=== PATIENT | female | born 1945 | race Caucasian/White ===

== ENCOUNTER → 2017-08-02 | Outpatient (CLI) | payer OTHER, BC ==
[~2017-08-02] MED LIST: ABL5 PO; ASPI-391 PO; EFF50 PO; LEVO25TA PO; OXYC1TAB3 PO; RQPUNK PO
--- NOTE | 2017-08-05 14:57 | POLYSOMNOGRAPH REPORT ---
CLINICAL DATA: A 71-year-old female with BMI of 21.[address] Bishop and myself for evaluation of a previous history of sleep apnea, morning headaches, snoring, and fatigue. On the evening of 08/02/2017, a home sleep apnea test was performed using a [employer] type 3 monitor. RECORDING RESULTS: Total recording time 10 hours. The patient monitoring time and estimated sleep time was 9.3 hours. RESPIRATORY DATA: There was no evidence of clinically significant sleep apnea seen. The ZAHRAA was 1.2. There were 5 obstructive and 1 central apneic episodes and 5 hypopneic episodes recorded. The longest respiratory event was 29 seconds. OXIMETRY DATA: Mean saturation was 94%. Oxygen kvng was 80%. Time below 89% was 1 minute. HEART RATE DATA: Heart rates ranged from 67 to 79 beats per minute. SNORING DATA: Snoring was recorded intermittently throughout the night. IMPRESSION: No evidence of clinically significant sleep apnea/hypopnea or sustained nocturnal hypoxemia. RECOMMENDATIONS: The patient should continue to practice good sleep hygiene. There does not appear to be any need for BiPAP or CPAP based on this sleep study. MTDD
== END | disposition home or self-care (01) ==
LOC: C.NEUR 12:55
PROVIDERS: ATTEND Internal Medicine Pulmonary Disease
DX: R51 Headache (principal)

== ENCOUNTER 2019-02-16 09:55 | Inpatient (IN) ==
--- OUTSIDE RECORDS SUMMARY | 2019-02-16 09:58 | External Medical Summary | Continuity of Care Document ---
:1945 Author Name Bishop Valentine Address Unavailable Unavailable , Care Team Providers Name Role Phone Uriah Jett PA-C Unavailable [email or web address] Unavailable Unavailable Unavailable Unavailable Assessments Assessed Problems:Iron deficiency anemia, unspecified iron deficiency anemia typeFatigueRestless legs syndrome Problems Snoring (786.09) (R06.83) Morning headache (784.0) (R51) Sleep apnea, unspecified type (780.57) (G47.30) Breast cancer (174.9) (C50.919) Iron deficiency anemia, unspecified iron deficiency an emia type (280.9) (D50.9) Fatigue (780.79) (R53.83) Restless legs syndrome (333.94) (G25.81) Major depressive disorder, recurrent episode, moderate (296. 32) (F33.1) Kidney disease, chronic, stage III (GFR 30-59 ml/min) (585.3 ) (N18.3) Lichen sclerosus of female genitalia (701.0) (N90.4) Hypothyroidism, unspecified type (244.9) (E03.9) Depressive disorder (311) (F32.9) Allergies and Adverse Reactions Reglan TABS (Allergy) sulfa (Allergy) Medications Aricept 5 MG Oral Tablet; TAKE 1 TABLET DAILY DIRECTED. Refills: 0 Prevacid 30 MG Oral Capsule Delayed Rele ase; TAKE 1 CAPSULE EVERY MORNING DAILY. Refills: 0 Levoxyl 50 MCG Oral Tablet; TAKE 1 TABLET DAILY DIRECTED. Refills: 0 Venofer 20 MG/ML Intravenous Solution Refills: 0 Urocit-K 10 10 MEQ (1080 MG) Oral Tablet Extended Release; TAKE 1 TABLET 3 TIMES DAILY. Refills: 0 Flonase 50 MCG/ACT SUSP; USE 2 SPRAYS IN EACH NOSTRIL DAILY Refills: 0 traMADol HCl - 50 MG Oral Tablet; TAKE 1 TABLET 4 TIMES DAILY NEEDED FOR PAIN. Refills: 0 Lomotil 2.5-0.025 MG Oral Tablet; TAKE 1 TABLET TWICE DAILY NEEDED. Refills: 0 Requip 2 MG TABS; TAKE 1 TABLET AT BEDTIME. Refills: 0 Vitamin B-12 2500 MCG Sublingual Tablet Sublingual; TAKE DIRECTED. Refills: 0 Ensure Oral Liquid; USE DIRECTED. 237 ML Bottle Refills: 0 Triamcinolone Acetonide 0.1 % External Ointment; APPLY INCH DIRECTED Refills: 0 Thiamine HCl - 100 MG Oral Tablet; TAKE 1 TABLET DAILY. Refills: 0 Ativan 0.5 MG Oral Tablet; TAKE 1 TABLET 3 TIMES DAILY NE EDED. Refills: 0 Clobetasol Propionate 0.05 % External Cream; APPLY INCH DIRECTED Refills: 0 Excedrin Extra Strength 250-250-65 MG Oral Tablet; TAKE TABL ET PRN Refills: 0 Venlafaxine HCl - 75 MG Oral Tablet; TAKE 1 TABLET TWICE JUDITH LY WITH MEALS. Refills: 0 Procedures History of sinus surgery Status: Complet ed History of hip replacement Status: Compl eted History of gastrointestinal surgery Stat us: Completed Immunizations Immunizations not documented Social History - Smoking Status Never smoker Interventions Discussion/SummaryPatient is a 71 y.o. female w/multiple medical problems referred to Dr. Champion in June 2017 for re-evaluation of sleep apnea. She previously had severe sleep apnea and was on treatment with BiPAP. She started to have symptoms again to include snoring, fatigue, and headaches therefore re- evaluation was recommended. She had a home sleep study on 08/02/2017 and it did not document clinically significant sleep apnea/hypopnea or nocturnal hypoxemia. She does have a history of RLS believes that it is well controlled with Requip. She is not interested in an in-lab sleep study to evaluate RLS/PLMD. Someof her RLS could be associated with her iron deficiency anemia for which she recieves IV iron therapy. She will follow-up our p.r.n. Plan of Treatment Planned Observations Planned Goals not documented Results No Known Results Results not documented Encounters Appointment; Angel Champion M.D. 27-Jun-2017 14:00 Encounter Diagnosis: Problem not documented Appointment; Britney Jett PA-C 09-Aug-2017 10:40 Encounter Diagnosis: Problem not documented
[2019-02-16] MEDS ORDERED: FAMOTIDINE 20MG/5ML IV PUSH IV STA (10:16)
[2019-02-16] MEDS ORDERED: ONDANSETRON INJ 2 MG/ML 2 ML VIAL IV STA (10:16)
[2019-02-16] MEDS ORDERED: METOCLOPRAMIDE HCL INJ 5 MG/ML 2 ML VIAL IV STA (10:18)
[2019-02-16] MEDS ORDERED: SODIUM CHLORIDE 0.9% 1000ML 1,000 ML IV SCH (10:30)
[2019-02-16 10:36] LABS: Hematocrit (blood only) 31.8 % (37-47); Hemoglobin 10.5 g/dL (12.0-16.0); Mean Corpuscular Volume 88.8 fL (80-100); Mean Platelet Volume 8.8 fL (7.4-10.4); Platelet Count 135 K/uL (130-400); RDW Coefficient of Variation 15.4 % (11.5-14.5); RDW Standard Deviation 50.3 fL (36.4-46.3); Red Blood Count 3.58 M/uL (4.2-5.4); White Blood Count 4.07 K/uL (4.8-10.8)
--- NOTE | 2019-02-16 10:38 | XRay Report ---
XR chest 1V portable HISTORY: weakness COMPARISON: None. FINDINGS: A 9 mm nodular density overlying the left heart border is demonstrated to be a rib calcific ation. The lungs are clear. No pleural effusions. No pneumothorax. The heart is normal in size. IMPRESSION: No acute process. Electronically signed by: Bean Pond M.D. 02/16/2019 10:36 AM
--- NOTE | 2019-02-16 10:46 | CT Scan Report ---
CT head/brain wo con CLINICAL HISTORY: headache COMPARISON STUDY: 10/15/2018 TECHNIQUE: Axial CT of the brain is performed from the vertex to the skull base. IV contrast was not administered for this examination. A dose lowering technique was utilized adhering to the principles of ALARA. CT DOSE: 537.48 mGy.cm FINDINGS: No intra or extra-axial mass lesions are visualized. There is no CT evidence of acute cortical infarc tion. There is no evidence of midline shift. There is no acute hemorrhage. No calvarial fractures ar e visualized. There are minimal white matter hypodensities likely on a small vessel basis. There is mild frontal lo be atrophy. There is no evidence of pathologic ventricular dilatation. There are postsurgical changes present within the paranasal sinuses. There is maxillary sinus mucosal thickening. Advanced arthritic changes are present within the right temporal mandibular joint. IMPRESSION: No acute intracranial findings Electronically signed by: Kem Cuenca M.D. 02/16/2019 10:44 AM
[2019-02-16 10:47] LABS: Prothrombin Time 10.4 Seconds (9.0-12.0)
[2019-02-16 10:53] LABS: Alanine Aminotransferase 164 U/L (12-78); Albumin Level 2.7 gm/dl (3.4-5.0); Aspartate Aminotransferase 90 U/L (15-37); BUN Creatinine Ratio 19.5 (10-20); Blood Urea Nitrogen 25 mg/dl (7-18); Calcium 7.7 mg/dl (8.5-10.1); Carbon Dioxide 27 mmol/L (21-32); Chloride 102 mmol/L (98-107); Est GFR (Non-African American) 41.4; Glucose 159 mg/dl (70-99); Magnesium 2.4 mg/dl (1.8-2.4); Potassium 4.3 mmol/L (3.5-5.1); Sodium 134 mmol/L (136-145)
[2019-02-16 11:04] LABS: Albumin Globulin Ratio 0.8 (0.9-2); Alkaline Phosphatase 182 U/L (45-117); Bilirubin,Total 0.3 mg/dl (0.2-1); Globulin 3.2 gm/dl (2.5-4.0); Total Protein 5.9 gm/dl (6.4-8.2); Troponin I < 0.015 ng/ml (0-0.045)
[2019-02-16] MEDS ORDERED: CALCIUM CARBONATE 500 MG CHEWABLE TAB PO STA (11:04)
[2019-02-16 11:06] LABS: Basophils # (auto) 0.01 K/uL (0-0.2); Basophils % (auto) 0.2 %; Immature Granulocytes # (auto) 0.01 K/uL (0.00-0.02); Immature Granulocytes % (auto) 0.2 %; Lymphocytes # (auto) 0.69 K/uL (1.2-3.4); Monocytes # (auto) 0.23 K/uL (0.11-0.59); Monocytes % (auto) 5.7 %; Neutrophils # (auto) 3.13 K/uL (1.4-6.5); Neutrophils % (auto) 76.9 %
[2019-02-16] MEDS ORDERED: DOXYCYCLINE HYCLATE 100 MG in DEXTROSE 5% 100 ML IV STA (11:07)
--- NOTE | 2019-02-16 12:15 | History & Physical Report ---
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 -Generalized weakness, poor appetite, foggy mentation x 1 week -Leukopenic 4.07K. Platelets within normal limits. Abnormal LFTs as follows: Alk phos 182, ALT 164, AST 90 -Peripheral smear with evidence of cytoplasmic inclusion bodies suspicious for rickettsial-like bacteria versus Anaplasma -CMP, acute hepatitis panel in AM -Lyme and anaplasma serology pending -Of note, patient endorses Lyme disease history 8 years ago -PT/OT evaluation, conditioning (2) Depression with anxiety: Stable. Continue venlafaxine, trazodone, ativan PRN (3) CKD (chronic kidney disease), stage III: Kidney function at baseline -Continue to monitor with daily BMP (4) Anemia due to chronic kidney disease: Hgb stable at 10.5 (5) Hypothyroidism: TSH wnl Continue levothyroxine (6) RLS (restless legs syndrome): Continue Mirapex DVT Ppx: SCDs for now. If platelets remain stable, add SQ lovenox tomorrow Code status: FULL PCP: Dario [facility] Plan to [facility] once medically stable. Patient seen in collaboration with Dr. Ba. Please see addendum. History of Present Illness Chief Complaint: Generalized weakness, fatigue Primary Care Provider: Saritha Bishop, DO This is a 73-year-old female with a PMH of anemia, history of breast cancer, mood disorder, history of partial gastrectomy, hypothyroidism and other medical problems listed below who presents with generalized weakness and malaise x 1 week. Patient has had decreased appetite, felt clumsy and foggy with thinking. Already has decreased appetite since partial gastrectomy in 2009 and drinks boost twice a day. Endorses mild frontal headache and nausea. Denies fever, chills, lightheadedness, visual changes, chest pain, palpitations, shortness of breath, abdominal pain, dysuria, diarrhea or constipation. In the ED, patient found to be leukopenic 4.07K. Platelets within normal limit s. Abnormal LFTs as follows: Alk phos 182, ALT 164, AST 90. Most recently had liver function tests February 07 with mildly elevated ALT/AST and normal alk phos. Peripheral smear with evidence of cytoplasmic inclusion bodies suspicious for rickettsial-like bacteria versus Anaplasma. Started on doxycycline in the ED with fluid resuscitation. Will admit for further treatment. Of note, patient endorses Lyme disease history 8 years ago. Allergies Allergy/AdvReac Type Severity Reaction Status Date / Time Sulfa (Sulfonamide Allergy Intermediate HIVES Verified 02/16/19 10:55 Antibiotics) metoclopramide AdvReac Mild depression Verified 02/16/19 10:55 Home Medications Home Medications Medication Instructions Recorded Confirmed Type fluticasone propionate 2 spray INTRANASAL DAILY 10/15/18 02/16/19 History levothyroxine 25 mcg PO .MON,TUE,WED,FRI,SAT 10/15/18 02/16/19 History levothyroxine 50 mcg PO .SUN,THUR 10/15/18 02/16/19 History lorazepam 0.5 mg PO QID PRN 10/15/18 02/16/19 History potassium citrate 10 meq PO HS 10/15/18 02/16/19 History potassium citrate 20 meq PO DAILY 10/15/18 02/16/19 History ropinirole 2 mg PO HS 10/15/18 02/16/19 History tramadol 50 mg PO Q6H PRN 10/15/18 02/16/19 History trazodone 25 - 50 mg PO HS 10/15/18 02/16/19 History venlafaxine 75 mg PO DAILY 10/15/18 02/16/19 History food supplemt, lactose-reduced 1 ea PO BID 02/16/19 02/16/19 History [Ensure] magnesium oxide 400 mg PO BID 02/16/19 02/16/19 History multivitamin 1 tab PO QAM 02/16/19 02/16/19 History Past Med/Surg History Medical History Breast cancer (Chronic) Depression with anxiety (Chronic) CKD (chronic kidney disease), stage III (Chronic) Anemia due to chronic kidney disease (Chronic) RLS (restless legs syndrome) (Chronic) Chronic sinusitis (Chronic) Hypothyroidism (Chronic) Gastrojejunal ulcer with perforation Surgical History History of total right hip replacement (Chronic) History of cataract surgery (Chronic) H/O oophorectomy (Chronic) History of appendectomy (Chronic) H/O sinus surgery (Chronic) History of partial mastectomy of left breast (Chronic) S/P subtotal gastrectomy (Chronic) H/O Billroth II operation (Chronic) Family History Father Atrial fibrillation Social History Preferred Language: Finnish Communication Ability: Effective Beliefs That Will Affect Care: None marital status: / marital status details: within last 8-9 mo Current Living Situation: Alone Feels Safe at Home: Yes Smoking Status: Former smoker Hx Alcohol Use: No Hx Substance Use: No Review of Systems Review of Systems: At least ten systems reviewed and negative except as noted in the HPI. Physical Exam Physical Exam: General Appearance: thin woman, no apparent distress, resting comfortably Head: normocephalic, atraumatic Eyes: normal inspection, PERRL, EOMI ENT: hearing grossly normal, pharynx normal (moist mucous membranes) Neck: supple, no JVD, no adenopathy Respiratory/Chest: lungs clear to auscultation. No wheezes, rales or rhonci. No respiratory distress or accessory muscle use Cardiovascular: regular rate, rhythm, no murmur, normal peripheral pulses Abdomen/GI: normal bowel sounds, soft, non-tender to palpation Extremities/Musculoskelatal: normal inspection, no calf tenderness, normal capillary refill, no pedal edema Neurologic/Psych: alert, normal mood/affect, oriented x 3 Skin: normal color, warm/dry Results & Data Vital Signs (Past 12 Hours) Vital Signs Temp Pulse Pulse Resp BP BP Pulse Ox 02/16/19 12:05 76 18 95/62 L 96 02/16/19 11:12 79 18 113/69 96 02/16/19 09:57 36.8 C 91 H 20 118/74 97 Laboratory Results Short CBC 02/16/19 Range/Units 10:25 WBC 4.07 L (4.8-10.8) K/uL Hgb 10.5 L (12.0-16.0) g/dL Hct 31.8 L (37-47) % Plt Count 135 (130-400) K/uL BMP 02/16/19 10:25 Sodium 134 L Potassium 4.3 Chloride 102 Carbon Dioxide 27 BUN 25 H Creatinine 1.28 H Glucose 159 H Calcium 7.7 L Cardiac Enzymes 02/16/19 Range/Units 10:25 Troponin I < 0.015 (0-0.045) ng/ml Liver Function 02/16/19 Range/Units 10:25 Total Bilirubin 0.3 (0.2-1) mg/dl AST 90 H (15-37) U/L ALT 164 H (12-78) U/L Alkaline Phosphatase 182 H (45-117) U/L Albumin 2.7 L (3.4-5.0) gm/dl Urine 02/16/19 Range/Units 12:04 Urine Color Yellow Urine Appearance Clear (Clear) Urine pH 6.5 (4.5-7.5) Ur Specific [place] 1.019 (1.000-1.030) Urine Protein 1+ H (Negative) Urine Glucose (UA) Negative (Negative) Diagnostic Findings CT head: IMPRESSION: No acute intracranial findings CXR: IMPRESSION: No acute process. ECG Rhythm: normal sinus Supervising Physician Co-Signing Physician Notes I saw this patient with the physician instruction assistant principal, I participated in the history, physical, review of systems, and physical exam. I reviewed the medications with the patient and the physician instruction assistant principal and helped reconcile the medications. I helped take a detailed family and social history as well. I formulated the assessment and plan personally with the physician instruction assistant principal and went over it with the patient. ROS-No Headache, No Visual Changes, No Nausea, No Vomiting, No Fever, No Chills, No Neck Pain or Stiffness, No Chest Pain, No Palpitations, No SOB, No SKINNER, No Cough, No Sputum, No Wheezing, No Abdominal Pain, No Diarrhea, No Hematemesis, No Hemoptysis, No Unexpected Weight Loss, No Flank pain, No Melena, No Hematochezia, No Frequency, No Urgency, No Burning, No Hematuria, No Rashes, No Diaphoresis. Appetite is poor, complains of weakness Physical Exam Gen-AAO x 3, NAD, Afebrile, weak Head-NCAT, EOMI, PERRLA, Anicteric Sclera, No Posterior Pharyngeal Erythema Neck-Supple, No JVD, No Thyromegaly, No Masses, No LAD, No Bruits Lungs-Clear to Auscultation Bilaterally, No Rales, No Rhonchi, No Wheezing, No Crepitus Chest-No S4, +S1, +S2, No S3, No Murmurs, No Rubs, No Gallops, No Ectopy Abdomen-Soft, Bowel Sounds Present, Non Tender, Non Distended, No Hepatomegaly, No Splenomegaly, No Palpable Masses, No Rebound, No Rigidity, No Guarding Musculoskeletal-Full Range of Motion Bilaterally, No CVAT Extremities-No Cyanosis, No Clubbing, No Edema Nuero-Cranial Nerves II-XII grossly intact, Motor WNL, DTRs WNL, Strength WNL, Non Focal Psych-Normal Mood
[2019-02-16 12:18] LABS: Appearance Urine Clear (Clear); Bacteria Urine Automated Negative (Negative); Bilirubin Urine Negative (Negative); Blood Urine Trace (Negative); Color Urine Yellow; Epithelial Cell Urine Auto 20-30 /lpf (0-5); Glucose Urine UA Negative (Negative); Ketones Urine Negative (Negative); Leukocyte Esterase Urine Negative (Negative); Nitrite Urine Negative (Negative); Protein Urine 1+ (Negative); Specific Gravity Urine 1.019 (1.000-1.030); Urobilinogen Urine Negative (Negative); pH Urine 6.5 (4.5-7.5)
[2019-02-16 13:31] LABS: Lyme Ab IgG w/WB Rflx Positive (Negative)
[2019-02-16 13:32] LABS: Lyme Ab IgM w/WB Rflx Equivocal (Negative)
[2019-02-16] MEDS ORDERED: POLYETHYLENE (MIRALAX) 17 GM PACK PO PRN (14:09)
[2019-02-16] MEDS ORDERED: ONDANSETRON INJ 2 MG/ML 2 ML VIAL IV PRN (14:09)
[2019-02-16] MEDS ORDERED: LORazepam 1 MG TAB PO PRN (15:01)
--- NOTE | 2019-02-16 17:27 | Emergency Department Note ---
Entered by Elvira Saucedo acting as a scribe for Marko Lyon MD History of Present Illness General Chief complaint: Dehydration Stated complaint: WEAK,NAUSEA,CONFUSION Time Seen by Provider: 02/16/19 10:03 Source: patient History of Present Illness Provider complaint: Dehydration Onset (ago): week(s) 1 Location: head (headache) Pain Consistency: + constant Maximum Pain Intensity: 8 Quality: + constant Associated symptoms: + headaches, + loss of appetite, + nausea/vomiting (intermittent nausea ) and + other (Positive: dehydration, clumsy, tripping over herself); no cough The patient is a 73 year old white female w/ PMHx of headaches, diabetes, CKD, RLS, hypothyroidism, who presents to the ED w/ CC of constant dehydration beginning a week ago. The patient reports she has intermittent nausea. She notes she was confused this morning. The patient states her urine has been pouring out of her and has a diaper on. She notes she was told by her doctor that she was dehydrated so she has been trying to hydrate herself. The patient reports she has a bad headache. She states she has history of headaches. The patient notes she has stage 3 kidney disease. The patient reports she has been clumsy and tripping over herself. She notes she has history of diabetes. The patient states she has loss of appetite. She notes she has history of ulcers during her and had partial gastrectomy. The patient denies cough or recent falls. Home Medications Home Medications Medication Instructions Recorded Confirmed Type fluticasone propionate 2 spray INTRANASAL DAILY 10/15/18 02/16/19 History levothyroxine 25 mcg PO .MON,TUE,WED,FRI,SAT 10/15/18 02/16/19 History levothyroxine 50 mcg PO .SUN,THUR 10/15/18 02/16/19 History lorazepam 0.5 mg PO QID PRN 10/15/18 02/16/19 History potassium citrate 10 meq PO HS 10/15/18 02/16/19 History potassium citrate 20 meq PO DAILY 10/15/18 02/16/19 History ropinirole 2 mg PO HS 10/15/18 02/16/19 History tramadol 50 mg PO Q6H PRN 10/15/18 02/16/19 History trazodone 25 - 50 mg PO HS 10/15/18 02/16/19 History venlafaxine 75 mg PO DAILY 10/15/18 02/16/19 History food supplemt, lactose-reduced 1 ea PO BID 02/16/19 02/16/19 History [Ensure] magnesium oxide 400 mg PO BID 02/16/19 02/16/19 History multivitamin 1 tab PO QAM 02/16/19 02/16/19 History Allergies Allergy/AdvReac Type Severity Reaction Status Date / Time Sulfa (Sulfonamide Allergy Intermediate HIVES Verified 02/16/19 10:55 Antibiotics) metoclopramide AdvReac Mild depression Verified 02/16/19 10:55 Past Med/Surg History Medical History Breast cancer (Chronic) Depression with anxiety (Chronic) CKD (chronic kidney disease), stage III (Chronic) Anemia due to chronic kidney disease (Chronic) RLS (restless legs syndrome) (Chronic) Chronic sinusitis (Chronic) Hypothyroidism (Chronic) Gastrojejunal ulcer with perforation Surgical History History of total right hip replacement (Chronic) History of cataract surgery (Chronic) H/O oophorectomy (Chronic) History of appendectomy (Chronic) H/O sinus surgery (Chronic) History of partial mastectomy of left breast (Chronic) S/P subtotal gastrectomy (Chronic) H/O Billroth II operation (Chronic) Family History Father Atrial fibrillation Social History Preferred Language: Ghanaian Communication Ability: Effective Beliefs That Will Affect Care: None marital status: / marital status details: within last 8-9 mo Current Living Situation: Alone Feels Safe at Home: Yes Smoking Status: Former smoker Hx Alcohol Use: No Hx Substance Use: No Review of Systems See HPI for pertinent positives & negatives. and A total of 10 systems reviewed and were otherwise negative Physical Exam Vital Signs Vital Signs - 24 hr 02/16/19 09:57 02/16/19 11:12 02/16/19 12:05 Temperature 36.8 C Temperature Source Oral Sepsis Recent Fever Within 48 Hours No Sepsis Action Taken by Nursing No Action Required Pulse Rate 91 H Pulse Rate [Apical] 79 76 Pulse Rhythm Regular Pulse Strength Normal Respiratory Rate 20 18 18 Respiratory Effort / Characteristics Non-Labored Respiratory Depth Normal Respiratory Pattern Regular Blood Pressure 118/74 Blood Pressure [Left Arm] 113/69 95/62 L Blood Pressure Mean 88 Blood Pressure Mean [Left Arm] 83 73 Blood Pressure Position Sitting Pulse Oximetry 97 96 96 Oxygen Delivery Method Room Air Room Air Room Air 02/16/19 13:45 Temperature Temperature Source Sepsis Recent Fever Within 48 Hours Sepsis Action Taken by Nursing Pulse Rate Pulse Rate [Apical] 76 Pulse Rhythm Pulse Strength Respiratory Rate 18 Respiratory Effort / Characteristics Respiratory Depth Respiratory Pattern Blood Pressure Blood Pressure [Left Arm] 124/81 Blood Pressure Mean Blood Pressure Mean [Left Arm] 95 Blood Pressure Position Pulse Oximetry 98 Oxygen Delivery Method Room Air GENERAL: Weak appearing, NAD, non-toxic. EYE EXAM: Normal conjunctiva. PERRL, no anisocoria and EOM's grossly intact w/o pain. OROPHARYNX: Dry mucous membranes. Grossly normal dentition. NECK: Supple, no nuchal rigidity, no adenopathy, non-tender. No signs of meningismus. LUNGS: Clear to auscultation. Normal chest wall mechanics. HEART: NSR, no MRG. ABDOMEN: Abdomen soft, non-tender, normo-active bowel sounds, no masses, no rebound or guarding. BACK: No CVA TTP. SKIN: No rashes and no bruising. UPPER EXTREMITIES: Upper extremities are grossly normal. LOWER EXTREMITIES: No pitting edema. No calf pain. NEURO EXAM: A&O x3, cranial nerves II-XII grossly intact, normal speech, 5/5 strength throughout, no sensory deficits, good finger to nose, no pronator drift, moves all 4 extremities on command w/o issue. Course 1009: The patient was evaluated in room A11B. A complete history and physical exam was performed. 1105: I received a call from the nurse and they are concerned about anaplasmosis 1200: I reviewed the patient's case with Rinku Jose PA-C. The pat ient will be admitted and further managed by Dr. Ba, Internal medicine. 1220: Upon reevaluation, the patient is resting comfortably. I discussed laboratory and radiographic results with her. The patient verbalized agreement of the treatment plan. The patient will be evaluated for further management and care. Administered Medications Discontinued Medications Calcium Carbonate (Tums) 1,500 mg PO NOW STA Stop: 02/16/19 11:05 Last Admin: 02/16/19 11:19 Dose: 1,500 mg Documented by: [id number] Famotidine (Pepcid 20mg Iv Push) 20 mg IV ONE STA Stop: 02/16/19 10:17 Last Admin: 02/16/19 11:05 Dose: 20 mg Documented by: [id number] Sodium Chloride (Nss 1000ml) 1,000 mls @ 999 mls/hr IV .Q1H1M MARTHA Stop: 02/16/19 11:30 Last Infusion: 02/16/19 14:34 Dose: 0 mls/hr Documented by: [id number] Admin: 02/16/19 11:01 Dose: 999 mls/hr Documented by: [id number] Doxycycline Hyclate 100 mg/ (Dextrose) 110 mls @ 50 mls/hr IV NOW STA Stop: 02/16/19 13:18 Last Infusion: 02/16/19 14:13 Dose: 0 mls/hr Documented by: [id number] Admin: 02/16/19 11:25 Dose: 50 mls/hr Documented by: [id number] Metoclopramide HCl (Reglan) 10 mg IV NOW STA Stop: 02/16/19 10:19 Last Admin: 02/16/19 11:05 Dose: Not Given Documented by: [id number] Ondansetron HCl (Zofran) 4 mg IV NOW STA Stop: 02/16/19 10:17 Last Admin: 02/16/19 11:05 Dose: 4 mg Documented by: [id number] Medical Decision Making Differential Diagnosis Differential Diagnosis: Differential includes acute coronary syndrome, myocardial infarction, CVA, TIA, anemia, infection, pneumonia, UTI, pyelonephritis, poor nutrition, dehydration, electrolyte disturbance,hypoglycemia. Medical Records Attestation: I reviewed the patient's medical records. Home Medications Current Medication List: was personally reviewed by me Laboratory Data Attestation: I reviewed the patient's lab results. Result diagrams: 02/16/19 10:25 02/16/19 10:25 Lab Results 02/16/19 02/16/19 02/16/19 Range/Units 10:25 10:25 10:25 WBC 4.07 L (4.8-10.8) K/uL RBC 3.58 L (4.2-5.4) M/uL Hgb 10.5 L (12.0-16.0) g/dL Hct 31.8 L (37-47) % MCV 88.8 (80-100) fL MCH 29.3 (25-34) pg MCHC 33.0 (32-36) g/dL RDW Std Deviation 50.3 H (36.4-46.3) fL RDW Coeff of Tatiana 15.4 H (11.5-14.5) % Plt Count 135 (130-400) K/uL MPV 8.8 (7.4-10.4) fL Immature Gran % (Auto) 0.2 % Neut % (Auto) 76.9 % Lymph % (Auto) 17.0 % [place] % (Auto) 5.7 % Eos % (Auto) 0.0 % Baso % (Auto) 0.2 % Immature Gran # (Auto) 0.01 (0.00-0.02) K/uL Neut # (Auto) 3.13 (1.4-6.5) K/uL Lymph # (Auto) 0.69 L (1.2-3.4) K/uL [place] # (Auto) 0.23 (0.11-0.59) K/uL Eos # (Auto) 0.00 (0-0.5) K/uL Baso # (Auto) 0.01 (0-0.2) K/uL Blood Smear Review PT 10.4 (9.0-12.0) Seconds INR 1.0 (0.9-1.1) Sodium 134 L (136-145) mmol/L Potassium 4.3 (3.5-5.1) mmol/L Chloride 102 (98-107) mmol/L Carbon Dioxide 27 (21-32) mmol/L Anion Gap 5.0 (3-11) BUN 25 H (7-18) mg/dl Creatinine 1.28 H (0.6-1.2) mg/dl Est Cr Clr Drug Dosing Not Reportable Est GFR ( Amer) 48.0 Est GFR (Non-Af Amer) 41.4 BUN/Creatinine Ratio 19.5 (10-20) Glucose 159 H (70-99) mg/dl Calcium 7.7 L (8.5-10.1) mg/dl Magnesium 2.4 (1.8-2.4) mg/dl Total Bilirubin 0.3 (0.2-1) mg/dl AST 90 H (15-37) U/L ALT 164 H (12-78) U/L Alkaline Phosphatase 182 H (45-117) U/L Troponin I < 0.015 (0-0.045) ng/ml Total Protein 5.9 L (6.4-8.2) gm/dl Albumin 2.7 L (3.4-5.0) gm/dl Globulin 3.2 (2.5-4.0) gm/dl Albumin/Globulin Ratio 0.8 L (0.9-2) TSH 0.622 (0.300-4.500) uIu/ml Urine Color Urine Appearance (Clear) Urine pH (4.5-7.5) Ur Specific [place] (1.000-1.030) Urine Protein (Negative) Urine Glucose (UA) (Negative) Urine Ketones (Negative) Urine Blood (Negative) Urine Nitrite (Negative) Urine Bilirubin (Negative) Urine Urobilinogen (Negative) Ur Leukocyte Esterase (Negative) Urine WBC (Auto) (0-5) /hpf Urine RBC (Auto) (0-4) /hpf U Hyaline Cast (Auto) (0-5) /lpf U Epithel Cells (Auto) (0-5) /lpf Urine Bacteria (Auto) (Negative) Lyme Disease IgG Ab (Negative) Lyme Disease IgM Ab (Negative) 02/16/19 02/16/19 Range/Units 10:25 12:04 WBC (4.8-10.8) K/uL RBC (4.2-5.4) M/uL Hgb (12.0-16.0) g/dL Hct (37-47) % MCV (80-100) fL MCH (25-34) pg MCHC (32-36) g/dL RDW Std Deviation (36.4-46.3) fL RDW Coeff of Tatiana (11.5-14.5) % Plt Count (130-400) K/uL MPV (7.4-10.4) fL Immature Gran % (Auto) % Neut % (Auto) % Lymph % (Auto) % [place] % (Auto) % Eos % (Auto) % Baso % (Auto) % Immature Gran # (Auto) (0.00-0.02) K/uL Neut # (Auto) (1.4-6.5) K/uL Lymph # (Auto) (1.2-3.4) K/uL [place] # (Auto) (0.11-0.59) K/uL Eos # (Auto) (0-0.5) K/uL Baso # (Auto) (0-0.2) K/uL Blood Smear Review PT (9.0-12.0) Seconds INR (0.9-1.1) Sodium (136-145) mmol/L Potassium (3.5-5.1) mmol/L Chloride (98-107) mmol/L Carbon Dioxide (21-32) mmol/L Anion Gap (3-11) BUN (7-18) mg/dl Creatinine (0.6-1.2) mg/dl Est Cr Clr Drug Dosing Est GFR ( Amer) Est GFR (Non-Af Amer) BUN/Creatinine Ratio (10-20) Glucose (70-99) mg/dl Calcium (8.5-10.1) mg/dl Magnesium (1.8-2.4) mg/dl Total Bilirubin (0.2-1) mg/dl AST (15-37) U/L ALT (12-78) U/L Alkaline Phosphatase (45-117) U/L Troponin I (0-0.045) ng/ml Total Protein (6.4-8.2) gm/dl Albumin (3.4-5.0) gm/dl Globulin (2.5-4.0) gm/dl Albumin/Globulin Ratio (0.9-2) TSH (0.300-4.500) uIu/ml Urine Color Yellow Urine Appearance Clear (Clear) Urine pH 6.5 (4.5-7.5) Ur Specific [place] 1.019 (1.000-1.030) Urine Protein 1+ H (Negative) Urine Glucose (UA) Negative (Negative) Urine Ketones Negative (Negative) Urine Blood Trace H (Negative) Urine Nitrite Negative (Negative) Urine Bilirubin Negative (Negative) Urine Urobilinogen Negative (Negative) Ur Leukocyte Esterase Negative (Negative) Urine WBC (Auto) 1-5 (0-5) /hpf Urine RBC (Auto) 10-30 H (0-4) /hpf U Hyaline Cast (Auto) 1-5 (0-5) /lpf U Epithel Cells (Auto) 20-30 H (0-5) /lpf Urine Bacteria (Auto) Negative (Negative) Lyme Disease IgG Ab Positive A (Negative) Lyme Disease IgM Ab Equivocal A (Negative) Imaging Data Radiologist's Impression: Radiology results as stated below per my review and the radiologist's interpretation: CT head/brain wo con CLINICAL HISTORY: headache COMPARISON STUDY: 10/15/2018 TECHNIQUE: Axial CT of the brain is performed from the vertex to the skull base. IV contrast was not administered for this examination. A dose lowering technique was utilized adhering to the principles of ALARA. CT DOSE: 537.48 mGy.cm FINDINGS: No intra or extra-axial mass lesions are visualized. There is no CT evidence of acute cortical infarction. There is no evidence of midline shift. There is no acute hemorrhage. No calvarial fractures are visualized. There are minimal white matter hypodensities likely on a small vessel basis. There is mild frontal lobe atrophy. There is no evidence of pathologic ventricular dilatation. There are postsurgical changes present within the paranasal sinuses. There is maxillary sinus mucosal thickening. Advanced arthritic changes are present within the right temporal mandibular joint. IMPRESSION: No acute intracranial findings Electronically signed by: Kem Cuenca M.D. 02/16/2019 10:44 AM XR chest 1V portable HISTORY: weakness COMPARISON: None. FINDINGS: A 9 mm nodular density overlying the left heart border is demonstrated to be a rib calcification. The lungs are clear. No pleural effusions. No pneumothorax. The heart is normal in size. IMPRESSION: No acute process. Electronically signed by: Bean [place] M.D. 02/16/2019 10:36 AM ECG Data Attestation: I personally reviewed and interpreted this ECG as follows: Indication: weakness Rate (beats per minute): 76 Rhythm: normal sinus Findings: + other (Normal intervals and axis ); no acute ischemic change Blood Pressure Blood Pressure Findings: Low blood pressure Blood Pressure Disposition: further management by hospitalist JOSE ANGEL Woodall The patient is a 73 year old white female w/ PMHx of headaches, diabetes, CKD, RLS, hypothyroidism, who presents to the ED w/ CC of constant dehydration beginning a week ago. Patient was seen and evaluated the bedside. The patient did present with concerns for weakness possible confusion headache and nausea. The patient is a prior history of gastrectomy and recently lost her approximately 8 months ago. This may be contributory to her decreased p.o. intake patient states this is been acutely worse of the last week. The patient did have a nonspecific global headache which has improved with tramadol. Patient denies any fevers and no vomiting but is had nausea patient's blood work was concerning for possible inclusion bodies and associated anaplasmosis. Patient CT of the head is negative. Chest x-ray is also negative. EKG does not show any acute ischemic change. Patient has mild leukopenia and anemia. Platelet count is normal. The patient does have elevations in LFTs as well as creatinine. Patient was given additional IV fluids. Calcium corrected is close to normal but she was given Tums for replacement. I did discuss the case with the on-call hospitalist given the patient's weakness and associated Anaplasma. The patient was given doxycycline. Impression & Plan Weakness, Dehydration, Anaplasmosis, Hypocalcemia Discharge Plan Visit Data *Final* Discharge Date/Time: 02/16/19 13:55 Chief Complaint: Dehydration Stated Complaint: WEAK,NAUSEA,CONFUSION ED Provider: Marko Lyon Discharge Problem: Weakness, Dehydration, Anaplasmosis, Hypocalcemia Patient Disposition: Admitted As Inpatient Discharge Instructions Interventions: ED Discharge Assessment Last Done: 02/16/19 13:55 The ryanneibe's documentation has been prepared under my direction and personally reviewed by me in its entirety. I confirm that the note above accurately reflects all work, treatment, procedures, and medical decision making performed by me.
[2019-02-16] MEDS: SODIUM CHLORIDE 0.9% 1000ML 1,000 ML IV SCH (17:48)
[2019-02-16] MEDS: MAGNESIUM OXIDE 400 MG TAB PO SCH (17:49)
[2019-02-16] MEDS: DOXYCYCLINE HYCLATE 100 MG CAP PO SCH (20:18)
[2019-02-16] MEDS: POTASSIUM CITRATE 10 MEQ TAB PO SCH (20:18)
[2019-02-16] MEDS: ROPINIROLE HCL 1 MG TABLET PO SCH (20:19)
[2019-02-16] MEDS: TRAZODONE HCL 50 MG TAB PO SCH (20:19)
[2019-02-16] MEDS ORDERED: NON-FORMULARY MEDICATION (Food Supplemt, Lactose-Reduced [Ensure] 1 EA) PO SCH (21:00)
[2019-02-17] MEDS ORDERED: LEVOTHYROXINE SODIUM 25 MCG TABLET PO SCH (06:30)
[2019-02-17] MEDS: MAGNESIUM OXIDE 400 MG TAB PO SCH ×2 (08:05→17:43)
[2019-02-17] MEDS: MULTIVITAMIN TAB PO SCH (08:06)
[2019-02-17 08:07] LABS: Hematocrit (blood only) 30.2 % (37-47); Hemoglobin 9.9 g/dL (12.0-16.0); Mean Corpuscular Hgb Conc 32.8 g/dL (32-36); Mean Corpuscular Volume 90.7 fL (80-100); Mean Platelet Volume 9.3 fL (7.4-10.4); Platelet Count 126 K/uL (130-400); RDW Coefficient of Variation 15.6 % (11.5-14.5); RDW Standard Deviation 52.2 fL (36.4-46.3); Red Blood Count 3.33 M/uL (4.2-5.4); White Blood Count 2.59 K/uL (4.8-10.8)
[2019-02-17] MEDS: POTASSIUM CITRATE 10 MEQ TAB PO SCH ×2 (08:07→20:28)
[2019-02-17] MEDS: FLUTICASONE PROPIONATE NA SPR 16 GM BTL NAE SCH (08:07)
[2019-02-17 08:39] LABS: Albumin Level 2.3 gm/dl (3.4-5.0); BUN Creatinine Ratio 21.4 (10-20); Calcium 7.9 mg/dl (8.5-10.1); Creatinine Clr Calc Pharmacy 36.8 ml/min; Est GFR (African American) 52.4; Est GFR (Non-African American) 45.3; Potassium 4.7 mmol/L (3.5-5.1)
[2019-02-17 08:45] LABS: Albumin Globulin Ratio 0.8 (0.9-2); Bilirubin,Total 0.2 mg/dl (0.2-1); Globulin 2.8 gm/dl (2.5-4.0); Total Protein 5.1 gm/dl (6.4-8.2)
[2019-02-17] MEDS ORDERED: VENLAFAXINE HCL 75 MG TAB PO SCH (09:00)
[2019-02-17 09:25] LABS: Hepatitis B Surface Antigen Neg (Neg)
[2019-02-17 09:54] LABS: Hepatitis C IgG 13Yrs+Old_Rflx Neg (Neg)
[2019-02-17] MEDS: DOXYCYCLINE HYCLATE 100 MG CAP PO SCH ×2 (09:56→20:28)
[2019-02-17] MEDS: VENLAFAXINE HCL 50 MG TAB PO SCH (09:56)
[2019-02-17] MEDS: TRAMADOL HCL 50 MG TABLET PO PRN ×2 (10:08→20:26)
[2019-02-17] MEDS: SODIUM CHLORIDE 0.9% 1000ML 1,000 ML IV SCH (10:09)
[2019-02-17] MEDS ORDERED: predniSONE 20 MG TAB PO ONE (10:30)
--- NOTE | 2019-02-17 18:10 | Hospitalist Progress Note ---
Date of Service February 17, 2019 Assessment & Plan (1) Anaplasmosis: This is a 73-year-old female with a PMH of anemia, history of breast cancer, mood disorder, history of partial gastrectomy, hypothyroidism and other medical problems listed below who presents with generalized weakness and malaise x 1 week and has suspected anaplasmosis. -urine analysis negative -Peripheral smear 02/16/19: "Laboratory requested review of a peripheral blood smear shows neutrophils with cytoplasmic inclusions on the [employer] system and smear. 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 phagocytophilum DNA pending -patient endorses Lyme disease history 8 years ago. Lyme IgG positive but Lyme IgM is equivocal, Western blot for Lyme is pending -a variety of laboratory abnormalities can occur in infection such as leukopenia, thrombocytopenia, and elevated plasma levels of aminotransferases (transaminases), lactate dehydrogenase, and alkaline phosphatase.Anemia and an elevated plasma creatinine concentration also may be seen. -Patient has lab evidence supporting Anaplasmosis Transaminitis -elevated Liver function enzymes on admission AST 90 / ALT 164 /Alkaline phosphatase 182 -now AST 57/ ALT 117/alk 144 Leukopenia -WBC 4.07 K to 2.59 K Thrombocytopenia -In September, the platelets were above 200,000; now 135 K to 128 K hand cramps may be myalgia versus arthritis -start prednisone because patient does not want to take NSAIDs due to Chronic kidney disease -Patient able to ambulate with physical therapy (2) Depression with anxiety: Continue venlafaxine, trazodone, ativan PRN (3) CKD (chronic kidney disease), stage III: Kidney function at baseline -creatinine downtrended 1.28 to 1.19 (4) Anemia due to chronic kidney disease: Hgb 10.5 to 9.9 (5) Hypothyroidism: -TSH 0.666 -Continue levothyroxine (6) RLS (restless legs syndrome): -Continue Mirapex DVT Ppx: SCDs ; ambulation Code status: FULL Disposition: will continue to monitor in the hospital for now while on doxycycline. will repeat labs tomorrow AM. if patient continues to be symptomatically improved while on doxycycline and no other acute events then perhaps patient may be discharged tomorrow Subjective Generally, patient doing well today. she was able to ambulate. no sudden incontinence. no chest pain. no shortness of breath. no abdomen pain. no vomiting. patient did report of on and off discomfort of the wrists/fingers but denies history of arthritis Physical Exam Constitutional: + thin Eyes: PERRL, conjunctivae normal, anicteric sclerae EOM intact bilaterally ENMT: external ear and nose normal, oropharynx normal Neck: normal visual inspection Respiratory: normal respiratory effort, lungs clear to auscultation Cardiovascular: RRR, no murmur, no edema Gastrointestinal (Abdomen): normal bowel sounds, soft, nontender, no hepato splenomegaly Musculoskeletal: Head/Neck/Chest: normocephalic and head atraumatic reports cramps of hands Neurologic: PERRL, EOMI, accommodation nl, no face palsy, no dysarthria CN's II-XI intact bilaterally Results & Data Vital Signs (Past 12 Hours) Vital Signs Temp Pulse Pulse Resp BP BP Pulse Ox 02/17/19 16:12 77 02/17/19 15:54 36.6 C 68 18 126/69 98 02/17/19 11:07 36.8 C 74 18 114/70 97 02/17/19 07:23 36.6 C 75 18 103/66 98 02/17/19 07:22 67
[2019-02-17] MEDS: ROPINIROLE HCL 1 MG TABLET PO SCH (21:15)
[2019-02-17] MEDS: TRAZODONE HCL 50 MG TAB PO SCH (21:15)
[2019-02-18] MEDS: MAGNESIUM OXIDE 400 MG TAB PO SCH (05:45)
[2019-02-18] MEDS: TRAMADOL HCL 50 MG TABLET PO PRN ×2 (05:49→11:25)
[2019-02-18] MEDS ORDERED: LEVOTHYROXINE SODIUM 50 MCG TABLET PO SCH (06:30)
[2019-02-18] MEDS: MULTIVITAMIN TAB PO SCH (07:36)
[2019-02-18] MEDS: VENLAFAXINE HCL 50 MG TAB PO SCH (07:36)
[2019-02-18] MEDS: POTASSIUM CITRATE 10 MEQ TAB PO SCH (07:37)
[2019-02-18] MEDS: DOXYCYCLINE HYCLATE 100 MG CAP PO SCH (07:38)
[2019-02-18] MEDS: FLUTICASONE PROPIONATE NA SPR 16 GM BTL NAE SCH (07:38)
[2019-02-18 08:39] LABS: Hematocrit (blood only) 32.5 % (37-47); Hemoglobin 10.7 g/dL (12.0-16.0); Mean Corpuscular Hgb Conc 32.9 g/dL (32-36); Mean Platelet Volume 9.8 fL (7.4-10.4); Platelet Count 181 K/uL (130-400); RDW Coefficient of Variation 15.8 % (11.5-14.5); RDW Standard Deviation 51.6 fL (36.4-46.3); Red Blood Count 3.65 M/uL (4.2-5.4); White Blood Count 3.76 K/uL (4.8-10.8)
[2019-02-18] MEDS ORDERED: predniSONE 5 MG TAB PO SCH (09:00)
[2019-02-18 09:16] LABS: Albumin Level 2.8 gm/dl (3.4-5.0); BUN Creatinine Ratio 22.3 (10-20); Calcium 8.5 mg/dl (8.5-10.1); Creatinine Clr Calc Pharmacy 38.3 ml/min; Est GFR (African American) 54.7; Est GFR (Non-African American) 47.2; Potassium 4.2 mmol/L (3.5-5.1)
[2019-02-18 09:19] LABS: Albumin Globulin Ratio 0.8 (0.9-2); Bilirubin,Total 0.2 mg/dl (0.2-1); Globulin 3.4 gm/dl (2.5-4.0); Total Protein 6.2 gm/dl (6.4-8.2)
--- NOTE | 2019-02-18 11:39 | Hospitalist Progress Note ---
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 anaplasmosis infection -urine analysis negative -Peripheral smear 02/16/19: "Laboratory requested review of a peripheral blood smear shows neutrophils with cytoplasmic inclusions on the [employer] system and smear. 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 Lyme IgG positive but Lyme IgM is equivocal, Western blot for Lyme is pending -a variety of laboratory abnormalities can occur in infection such as leukopenia, thrombocytopenia, and elevated plasma levels of aminotransferases (transaminases), lactate dehydrogenase, and alkaline phosphatase.Anemia and an elevated plasma creatinine concentration also may be seen. -Patient has other lab evidence supporting Anaplasmosis. Patient should have repeat CBC and comprehensive metabolic panel repeated by primary care doctor and have primary care doctor follow up Western blot for Lyme -discharge on Doxycycline 100 mg BID for 20 more days fro anaplasmosis infection Transaminitis -elevated Liver function enzymes on admission AST 90 / ALT 164 /Alkaline phosphatase 182 -then trended to AST 57/ ALT 117/alk 144 -now stable AST 54/ALT 120/alk 128 Leukopenia -WBC 4.07 K to 2.59 K to 3.76K Thrombocytopenia -In September, the platelets were above 200,000; now 135 K to 128 K to 181K hand cramps may be myalgia versus arthritis -was given prednisone because patient does not want to take NSAIDs due to Chronic kidney disease -Patient able to ambulate with physical therapy -discharge on prednisone 20 mg x 3 days then stop (2) Depression with anxiety: Continue venlafaxine, trazodone, ativan PRN (3) CKD (chronic kidney disease), stage III: Kidney function at baseline -creatinine downtrended 1.28 to 1.19 to 1.15 -patient encouraged to drink water and stay hydrated after hospital stay (4) Anemia due to chronic kidney disease: Hgb 10.5 to 9.9 to 10.7 (5) Hypothyroidism: -TSH 0.666 -Continue levothyroxine (6) RLS (restless legs syndrome): -Continue Mirapex DVT Ppx: SCDs ; ambulation Code status: FULL Discharge Diagnosis: anaplasmosis infection, myalgia, transaminitis, Leukopenia, 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 Subjective Patient feeling well. denies myalgias today. hands feeling better. denies weakness. has been ambulatory. no chest pain. no shortness of breath. no headache. no dizziness. Physical Exam Constitutional: + thin Eyes: PERRL, conjunctivae normal, anicteric sclerae EOM intact bilaterally ENMT: external ear and nose normal, oropharynx normal Neck: normal visual inspection Respiratory: normal respiratory effort, lungs clear to auscultation Cardiovascular: RRR, no murmur, no edema Gastrointestinal (Abdomen): normal bowel sounds, soft, nontender, no hepatosplenomegaly Musculoskeletal: Head/Neck/Chest: normocephalic and head atraumatic Neurologic: PERRL, EOMI, accommodation nl, no face palsy, no dysarthria CN's II-XI intact bilaterally Results & Data Vital Signs (Past 12 Hours) Vital Signs Temp Pulse Pulse Resp BP Pulse Ox 02/18/19 07:38 36.7 C 62 18 121/58 L 97 02/18/19 03:36 36.5 C 68 18 113/67 98 02/18/19 00:58 63
--- NOTE | 2019-02-18 11:58 | Discharge Summary ---
Date of Service February 18, 2019 Admission HPI Per Admitting Provider This is a 73-year-old female with a PMH of anemia, history of breast cancer, mood disorder, history of partial gastrectomy, hypothyroidism and other medical problems listed below who presents with generalized weakness and malaise x 1 week. Patient has had decreased appetite, felt clumsy and foggy with thinking. Already has decreased appetite since partial gastrectomy in 2009 and drinks boost twice a day. Endorses mild frontal headache and nausea. Denies fever, chills, lightheadedness, visual changes, chest pain, palpitations, shortness of breath, abdominal pain, dysuria, diarrhea or constipation. In the ED, patient found to be leukopenic 4.07K. Platelets within normal limits. Abnormal LFTs as follows: Alk phos 182, ALT 164, AST 90. Most recently had liver function tests February 07 with mildly elevated ALT/AST and normal alk phos. Peripheral smear with evidence of cytoplasmic inclusion bodies suspicious for rickettsial-like bacteria versus Anaplasma. Started on doxycycline in the ED with fluid resuscitation. Will admit for further treatment. Of note, patient endorses Lyme disease history 8 years ago. Admission Exam Per Admitting Provider General Appearance: thin woman, no apparent distress, resting comfortably Head: normocephalic, atraumatic Eyes: normal inspection, PERRL, EOMI ENT: hearing grossly normal, pharynx normal (moist mucous membranes) Neck: supple, no JVD, no adenopathy Respiratory/Chest: lungs clear to auscultation. No wheezes, rales or rhonci. 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 Discharge Exam Constitutional + thin Eyes PERRL, conjunctivae normal, anicteric sclerae EOM intact bilaterally ENMT external ear and nose normal, oropharynx normal Neck normal visual inspection Respiratory normal respiratory effort, lungs clear to auscultation Cardiovascular RRR, no murmur, no edema Gastrointestinal (Abdomen) normal bowel sounds, soft, nontender, no hepatosplenomegaly Musculoskeletal Head/Neck/Chest: normocephalic and head atraumatic Neurologic PERRL, EOMI, accommodation nl, no face palsy, no dysarthria CN's II-XI intact bilaterally Discharge Data Allergies Allergy/AdvReac Type Severity Reaction Status Date / Time Sulfa (Sulfonamide Allergy Intermediate HIVES Verified 02/16/19 10:55 Antibiotics) metoclopramide AdvReac Mild depression Verified 02/16/19 10:55 Consultations 02/16/19 12:02 ED Decision to Admit Stat Ordered Studies 02/16/19 10:16 CT head/brain wo con Stat Hospital Course (1) Anaplasmosis: This is a 73-year-old female with a PMH of anemia, history of breast cancer, mood disorder, history of partial gastrectomy, hypothyroidism and other medical problems listed below who presents with generalized weakness and malaise x 1 week and has suspected anaplasmosis. anaplasmosis infection -urine analysis negative -Peripheral smear 02/16/19: "Laboratory requested review of a peripheral blood smear shows neutrophils with cytoplasmic inclusions on the [employer] system and smear. 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 Lyme IgG positive but Lyme IgM is equivocal, Western blot for Lyme is pending -a variety of laboratory abnormalities can occur in infection such as leukopenia, thrombocytopenia, and elevated plasma levels of aminotransferases (transaminases), lactate dehydrogenase, and alkaline phosphatase.Anemia and an elevated plasma creatinine concentration also may be seen. -Patient has other lab evidence supporting Anaplasmosis. Patient should have repeat CBC and comprehensive metabolic panel repeated by primary care doctor and have primary care doctor follow up Western blot for Lyme -discharge on Doxycycline 100 mg BID for 20 more days fro anaplasmosis infection Transaminitis -elevated Liver function enzymes on admission AST 90 / ALT 164 /Alkaline phosphatase 182 -then trended to AST 57/ ALT 117/alk 144 -now stable AST 54/ALT 120/alk 128 Leukopenia -WBC 4.07 K to 2.59 K to 3.76K Thrombocytopenia -In September, the platelets were above 200,000; now 135 K to 128 K to 181K hand cramps may be myalgia versus arthritis -was given prednisone because patient does not want to take NSAIDs due to Chronic kidney disease -Patient able to ambulate with physical therapy -discharge on prednisone 20 mg x 3 days then stop (2) Depression with anxiety: Continue venlafaxine, trazodone, ativan PRN (3) CKD (chronic kidney disease), stage III: Kidney function at baseline -creatinine downtrended 1.28 to 1.19 to 1.15 -patient encouraged to drink water and stay hydrated after hospital stay (4) Anemia due to chronic kidney disease: Hgb 10.5 to 9.9 to 10.7 (5) Hypothyroidism: -TSH 0.666 -Continue levothyroxine (6) RLS (restless legs syndrome): -Continue Mirapex DVT Ppx: SCDs ; ambulation Code status: FULL Discharge Diagnosis: anaplasmosis infection, myalgia, transaminitis, Leukopenia, 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 Total Time Total Time Spent Total Time Spent (In Minutes): 40 minutes Total Time Includes: Examination of the Patient, Discharge Planning, Medication Reconciliation and Communication With Other Providers Discharge Plan Discharge Items Patient Disposition: Home - Self-Care Reason For Visit: SUSPETED ANAPLASMOSIS Discharge Diagnosis: anaplasmosis infection, myalgia, transaminitis, Leukopenia, 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 Condition: Good Discharge Goals: Improve disease control Activity: Resume your previous activity Non-emergency contact: Primary Care Provider Call non-emergency contact if: you have any medication questions Follow-up/Referrals: Saritha Bishop DO [Primary Care Provider] - Diet: Regular Addtl Provider Instructions: discharge on Doxycycline 100 mg BID for 20 more days for anaplasmosis infection Patient should have repeat CBC and comprehensive metabolic panel repeated by primary care doctor and have primary care doctor follow up Western blot for Lyme discharge on prednisone 20 mg x 3 days then stop for myalgia/cramps of the hands Discharge medications sent electronically to [facility], [place], [place] [id number] appointments 02/26/2019 11:20 AM Provider Saritha Bishop DO Department Family [facility] 03/27/2019 10:00 AM Provider [address] Department Radiology [facility] Prescriptions: New doxycycline hyclate 100 mg Capsule 100 mg PO BID 20 Days Qty: 40 RF: 0 prednisone 20 mg Tablet 20 mg PO DAILY 3 Days Qty: 3 RF: 0 Continued multivitamin Tablet 1 tab PO QAM RF: 0 Ensure Liquid 1 ea PO BID RF: 0 magnesium oxide 400 mg magnesium Tablet 400 mg PO BID RF: 0 venlafaxine 75 mg tablet 75 mg PO DAILY RF: 0 trazodone 50 mg tablet 25 - 50 mg PO HS RF: 0 tramadol 50 mg tablet 50 mg PO Q6H PRN (Reason: Pain) RF: 0 levothyroxine 50 mcg tablet 50 mcg PO .TUE,THUR RF: 0 levothyroxine 50 mcg tablet 25 mcg PO .MON,TUE,WED,FRI,SAT RF: 0 ropinirole 2 mg tablet 2 mg PO HS RF: 0 potassium citrate 10 mEq (1,080 mg) Tablet Extended Release 20 meq PO DAILY RF: 0 potassium citrate 10 mEq (1,080 mg) Tablet Extended Release 10 meq PO HS RF: 0 lorazepam 1 mg tablet 0.5 mg PO QID PRN (Reason: Anxiety) RF: 0 fluticasone propionate 50 mcg/actuation spray,suspension 2 spray intranasal DAILY RF: 0 Stand-Alone Forms: [facility] Discharge Orders: Discharge Order (Routine); Ordered 02/18/19 Ordered By: Dashawn Burt Admission Data Admit Date/Time: 02/16/19 14:01 Attending Provider: Dashawn Burt Admit Provider: Dashawn Ba Primary Care Provider: Saritha Bishop Other Providers: Dashawn Ba Service: Telemetry Medical
[2019-02-19] MEDS ORDERED: predniSONE 20 MG TAB PO SCH (09:00)
[2019-02-22 09:33] LABS: 18KDIGG Band REACTIVE (NONREACTIVE); 23KDIGG Band REACTIVE (NONREACTIVE); 23KDIGM Band REACTIVE (NONREACTIVE); 28KDIGG Band NONREACTIVE (NONREACTIVE); 30KDIGG Band NONREACTIVE (NONREACTIVE); 39KDIGG Band REACTIVE (NONREACTIVE); 39KDIGM Band NONREACTIVE (NONREACTIVE); 41KDIGG Band REACTIVE (NONREACTIVE); 41KDIGM Band NONREACTIVE (NONREACTIVE); 45KDIGG Band REACTIVE (NONREACTIVE); 58KDIGG Band REACTIVE (NONREACTIVE); 66KDIGG Band REACTIVE (NONREACTIVE); 93KDIGG Band NONREACTIVE (NONREACTIVE); Lyme Antibodies, WB IgG POSITIVE (NEGATIVE); Lyme Antibodies, WB IgM NEGATIVE (NEGATIVE)
== END 2019-02-18 14:02 | disposition home or self-care (01) | DRG 869 ==
LOC: ED 09:55 → 2N 13:55

== ENCOUNTER 2020-06-17 18:07 | Inpatient (IN) ==
[2020-06-17] MEDS ORDERED: ONDANSETRON INJ 2 MG/ML 2 ML VIAL IV STA (18:17)
[2020-06-17] MEDS ORDERED: ACETAMINOPHEN 325 MG TAB PO STA (18:17)
--- NOTE | 2020-06-17 18:22 | Emergency Department Note ---
Impression & Plan Pneumonia due to 2019 novel coronavirus, Weakness, Dehydration, COVID-19, Symptomatic anemia ED Provider Note NAME: GIDEON NELSON AGE: 74 SEX: F : 1945 ARRIVES VIA: Ambulance INFORMANT: Patient, ED PROVIDER(S): Marko Lyon MD Chief Complaint: Weakness HPI: Patient does present with increasing weakness. The patient recently tested positive for coronavirus on Tuesday. Patient has been having symptoms since then with progressively worsening weakness decreased appetite. The patient last ate solids on Tuesday which is taking a dose of but is primarily been drinking Gatorade. Patient did have some falls last evening just due to generalized weakness. Patient denies any headache, numbness, tingling, chills, chest pains, or shortness of breath. The patient has had low-grade temperature. Patient denies any cough. Patient denies any recent recent travel states that she wears a mask states she is unsure how she contracted the virus. The patient denies any lower extremity swelling and has had decreased bowel movements but good urine output. Patient states she has been passing gas. Patient does have some overall body pain but describes this more as muscle aches and not related to her recent falls. The patient does not take blood thinning medications did not strike her head and did not pass out during her periods of falling. In route the patient did not have any hypoxia and BSG was slightly greater than 200. ROS: See HPI for pertinent positives and negatives. A total of 10 systems were reviewed and otherwise negative. Past medical history: See below Surgical history: See below Social history: See below Physical Exam: GENERAL: Wearing a mask. Nontoxic, tired in appearance EYE EXAM: Normal conjunctiva. PERRL, no anisocoria and EOM's grossly intact w/o pain. NECK: Supple, no nuchal rigidity, no adenopathy, non-tender. No signs of meningismus. LUNGS: Clear to auscultation. Normal chest wall mechanics. HEART: NSR, no MRG. ABDOMEN: Abdomen soft, non-tender, normo-active bowel sounds, no masses, no rebound or guarding. BACK: No CVA TTP. SKIN: No rashes and no bruising. Poor skin turgor. UPPER EXTREMITIES: Upper extremities are grossly normal. LOWER EXTREMITIES: Grossly normal, no edema. NEURO EXAM: A&O x3, cranial nerves II-XII grossly intact, normal speech, moves all 4 extremities on command w/o issue. Differential diagnoses: Infection, dehydration, metabolic abnormality, hypo/hyperglycemia, electrolyte disturbance, anemia, hypoxia, cardiac sources, intracerebral event, toxicologic, neurologic, as well as other pathologies. Course: Patient was seen and evaluated the bedside. Full history physical exam was performed. EKG: Indication: Weakness Normal sinus rhythm, rate of 82, normal intervals, normal axis, no ST changes. T WI in lead III but not in contiguous leads. Imaging Studies: Radiology results as stated below per my review in the radiologist's interpretation: XR chest 1V portable HISTORY: Fever. Cough. weakness COMPARISON: Chest 02/16/2019. FINDINGS: There is a new right perihilar airspace opacity. No pneumothorax. No pleural effusions. The heart is normal in size. Mildly tortuous thoracic aorta, unchanged. IMPRESSION: There is new right perihilar airspace opacity. This likely represents a pneumonia. Recommend follow-up to ensure resolution. ACT 112: Negative or not required by law. Electronically signed by: Bean Pond M.D. 06/17/2020 6:57 PM Dictated: 06/17/201855 Transcribed: 06/17/201855 Cardiac monitoring: An order was placed for continuous cardiac monitoring. The monitor shows a rate of 78 with sinus rhythm. MDM: Patient was seen due to concern for weakness. Patient was recently coronavirus positive. Patient does have a mild white count of 13 with anemia at 7. The patient patient's anemia is unchanged with the last reported hemoglobin in our system is from 2019. Patient does have some mild LONA baseline creatinine in the lower ones but today is 1.7. Patient does appear to have a right-sided pneumonia. The patient's weakness symptomatic anemia, recurrent falls, and covid status; I do not believe the patient was verbal at home as the patient currently lives by herself. Patient's vitals are stable. Patient denies any bright red blood per rectum or dark tarry stools. I did speak the on-call hospitalist and the patient was admitted to the medicine service by Dr. Banegas [facility]. Past Med/Surg History Medical History (Updated 06/17/20 @ 20:52 by Marko Lyon MD) Anemia due to chronic kidney disease Breast cancer Chronic sinusitis CKD (chronic kidney disease), stage III Depression with anxiety Gastrojejunal ulcer with perforation Hypothyroidism RLS (restless legs syndrome) Surgical History H/O Billroth II operation H/O oophorectomy H/O sinus surgery History of appendectomy History of cataract surgery History of partial mastectomy of left breast History of total right hip replacement S/P subtotal gastrectomy Family History Father Atrial fibrillation Social History Smoking Status: Never smoker Hx Alcohol Use: No Hx Substance Use: No Preferred Language: Persian Communication Ability: Effective Beliefs That Will Affect Care: None marital status: / marital status details: within last 8-9 mo Current Living Situation: Other Feels Safe at Home: Yes Assistive Devices: Glasses Allergies Allergies Allergy/AdvReac Type Severity Reaction Status Date / Time Sulfa (Sulfonamide Allergy Intermediate HIVES Verified 06/17/20 20:29 Antibiotics) metoclopramide AdvReac Mild depression Verified 06/17/20 20:29 Home Meds Home Medications Medication Instructions Recorded Confirmed fluticasone propionate 2 spray INTRANASAL DAILY 10/15/18 06/17/20 levothyroxine 25 mcg PO .MON,TUE,WED,FRI,SAT 10/15/18 06/17/20 levothyroxine 50 mcg PO .EMILIA DORADO 10/15/18 06/17/20 lorazepam 1 mg PO BID PRN 10/15/18 06/17/20 potassium citrate 10 meq PO HS 10/15/18 06/17/20 potassium citrate 20 meq PO DAILY 10/15/18 06/17/20 tramadol 50 mg PO Q6H PRN 10/15/18 06/17/20 trazodone 25 - 50 mg PO HS 10/15/18 06/17/20 venlafaxine 75 mg PO DAILY 10/15/18 06/17/20 Ensure 1 ea PO DAILY 02/16/19 06/17/20 multivitamin 1 tab PO QAM 02/16/19 06/17/20 Magnesium Malate 1,000 mg PO DAILY 06/17/20 06/17/20 amoxicillin 2,000 mg PO UD 06/17/20 06/17/20 gabapentin [Neurontin] 300 mg PO DAILY 06/17/20 06/17/20 prazosin 1 mg PO DAILY 06/17/20 06/17/20 ropinirole 4 mg PO HS 06/17/20 06/17/20 Results & Data (ED) Vital Signs Vital Signs - 24 hr 06/17/20 18:16 06/17/20 18:18 06/17/20 18:27 Temperature Temperature Source Pulse Rate 99 H 95 H 98 H Pulse Rate from SpO2 Sensor Pulse Rhythm Regular Respiratory Rate 17 16 13 Respiratory Depth Blood Pressure 128/73 Blood Pressure Mean 95 Blood Pressure Position Pulse Oximetry 97 Oxygen Delivery Method Room Air Sepsis Recent Fever Within 48 Hours Sepsis New/Unexplained Change in Mental Status Sepsis Action Taken by Nursing 06/17/20 18:30 06/17/20 18:31 06/17/20 19:00 Temperature 37.3 C Temperature Source Oral Pulse Rate 94 H 78 84 Pulse Rate from SpO2 Sensor 95 H 83 Pulse Rhythm Respiratory Rate 16 18 13 Respiratory Depth Normal Blood Pressure 128/73 Blood Pressure Mean 91 Blood Pressure Position Sitting Pulse Oximetry 92 96 97 Oxygen Delivery Method Room Air Sepsis Recent Fever Within 48 Hours Yes Sepsis New/Unexplained Change in Mental Status No Sepsis Action Taken by Nursing No Action Required Home Medications Current Medication List: was personally reviewed by me Laboratory Data Attestation: I reviewed the patient's lab results. Result diagrams: 06/17/20 18:26 06/17/20 18:26 Lab Results 06/17/20 06/17/20 06/17/20 Range/Units 18:26 18:26 18:26 WBC 13.36 H (4.8-10.8) K/uL RBC 3.37 L (4.2-5.4) M/uL Hgb 7.2 L (12.0-16.0) g/dL Hct 24.1 L (37-47) % MCV 71.5 L (80-100) fL MCH 21.4 L (25-34) pg MCHC 29.9 L (32-36) g/dL RDW Std Deviation 41.2 (36.4-46.3) fL RDW Coeff of Tatiana 15.6 H (11.5-14.5) % Plt Count 330 (130-400) K/uL MPV 8.9 (7.4-10.4) fL Immature Gran % (Auto) 0.2 % Neut % (Auto) 82.4 % Lymph % (Auto) 4.7 % [place] % (Auto) 12.6 % Eos % (Auto) 0.0 % Baso % (Auto) 0.1 % Neut # (Auto) 11.00 H (1.4-6.5) K/uL Lymph # (Auto) 0.63 L (1.2-3.4) K/uL [place] # (Auto) 1.69 H (0.11-0.59) K/uL Eos # (Auto) 0.00 (0-0.5) K/uL Baso # (Auto) 0.01 (0-0.2) K/uL Immature Gran # (Auto) 0.03 H (0.00-0.02) K/uL Microcytosis Present PT 10.5 (9.0-12.0) Seconds INR 1.0 (0.9-1.1) Sodium 137 (136-145) mmol/L Potassium 3.5 (3.5-5.1) mmol/L Chloride 104 (98-107) mmol/L Carbon Dioxide 26 (21-32) mmol/L Anion Gap 7.0 (3-11) BUN 26 H (7-18) mg/dl Creatinine 1.75 H (0.6-1.2) mg/dl Est Cr Clr Drug Dosing 26.4 ml/min Est GFR ( Amer) 32.7 Est GFR (Non-Af Amer) 28.2 BUN/Creatinine Ratio 15.0 (10-20) Glucose 169 H (70-99) mg/dl Calcium 8.7 (8.5-10.1) mg/dl Magnesium 2.6 H (1.8-2.4) mg/dl Total Bilirubin 0.4 (0.2-1) mg/dl AST 41 H (15-37) U/L ALT 21 (12-78) U/L Alkaline Phosphatase 108 (45-117) U/L Troponin I 0.021 (0-0.045) ng/ml Total Protein 6.9 (6.4-8.2) gm/dl Albumin 2.3 L (3.4-5.0) gm/dl Globulin 4.6 H (2.5-4.0) gm/dl Albumin/Globulin Ratio 0.5 L (0.9-2) TSH 0.304 (0.300-4.500) uIu/ml Administered Medications Discontinued Medications Acetaminophen (Acetaminophen 325 Mg Tab) 650 mg PO NOW STA Stop: 06/17/20 18:18 Last Admin: 06/17/20 19:26 Dose: 650 mg Documented by: [id number] Sodium Chloride (Nss 1000ml) 2,000 mls @ 999 mls/hr IV .Q2H1M MARTHA Stop: 06/17/20 20:30 Last Admin: 06/17/20 18:46 Dose: 999 mls/hr Documented by: [id number] Ondansetron HCl (Ondansetron Inj 2 Mg/Ml 2 Ml Vial) 4 mg IV NOW STA Stop: 06/17/20 18:18 Last Admin: 06/17/20 19:26 Dose: 4 mg Documented by: [id number] Discharge Plan Visit Data Chief Complaint: Illness ED Provider: Marko Lyon Discharge Problem: Pneumonia due to 2019 novel coronavirus, Weakness, Dehydration, COVID-19, Symptomatic anemia Forms Stand Alone Forms: [facility] Prescriptions Prescriptions: No Action multivitamin Tablet 1 tab PO QAM RF: 0 Ensure Liquid 1 ea PO DAILY RF: 0 venlafaxine 75 mg tablet 75 mg PO DAILY RF: 0 trazodone 50 mg tablet 25 - 50 mg PO HS RF: 0 tramadol 50 mg tablet 50 mg PO Q6H PRN (Reason: Pain) RF: 0 levothyroxine 50 mcg tablet 50 mcg PO .EMILIA DORADO RF: 0 levothyroxine 50 mcg tablet 25 mcg PO .MON,TUE,WED,FRI,SAT RF: 0 potassium citrate 10 mEq (1,080 mg) Tablet Extended Release 20 meq PO DAILY RF: 0 potassium citrate 10 mEq (1,080 mg) Tablet Extended Release 10 meq PO HS RF: 0 lorazepam 1 mg tablet 1 mg PO BID PRN (Reason: Anxiety) RF: 0 fluticasone propionate 50 mcg/actuation spray,suspension 2 spray intranasal DAILY RF: 0 prazosin 1 mg capsule 1 mg PO DAILY RF: 0 gabapentin [Neurontin] 300 mg capsule 300 mg PO DAILY RF: 0 ropinirole 4 mg tablet extended release 24 hr 4 mg PO HS RF: 0 Magnesium Malate 1,000 mg PO DAILY RF: 0 amoxicillin 500 mg tablet 2,000 mg PO UD RF: 0
[2020-06-17] MEDS ORDERED: SODIUM CHLORIDE 0.9% 1000ML 2,000 ML IV SCH (18:30)
[2020-06-17 18:37] LABS: Hematocrit (blood only) 24.1 % (37-47); Hemoglobin 7.2 g/dL (12.0-16.0); Mean Corpuscular Hemoglobin 21.4 pg (25-34); Mean Corpuscular Hgb Conc 29.9 g/dL (32-36); Mean Corpuscular Volume 71.5 fL (80-100); Mean Platelet Volume 8.9 fL (7.4-10.4); Platelet Count 330 K/uL (130-400); RDW Coefficient of Variation 15.6 % (11.5-14.5); RDW Standard Deviation 41.2 fL (36.4-46.3); Red Blood Count 3.37 M/uL (4.2-5.4); White Blood Count 13.36 K/uL (4.8-10.8)
[2020-06-17 18:45] LABS: Prothrombin Time 10.5 Seconds (9.0-12.0)
[2020-06-17 18:53] LABS: Albumin Level 2.3 gm/dl (3.4-5.0); Calcium 8.7 mg/dl (8.5-10.1); Creatinine Clr Calc Pharmacy 26.4 ml/min; Est GFR (African American) 32.7; Est GFR (Non-African American) 28.2; Magnesium 2.6 mg/dl (1.8-2.4); Potassium 3.5 mmol/L (3.5-5.1)
--- NOTE | 2020-06-17 18:58 | XRay Report ---
XR chest 1V portable HISTORY: Fever. Cough. weakness COMPARISON: Chest 02/16/2019. FINDINGS: There is a new right perihilar airspace opacity. No pneumothorax. No pleural effusions. The heart is normal in size. Mildly tortuous thoracic aorta, unchanged. IMPRESSION: There is new right perihilar airspace opacity. This likely represents a pneumonia. Recommend follow-u p to ensure resolution. ACT 112: Negative or not required by law. Electronically signed by: Bean Pond M.D. 06/17/2020 6:57 PM
[2020-06-17 19:03] LABS: Albumin Globulin Ratio 0.5 (0.9-2); Bilirubin,Total 0.4 mg/dl (0.2-1); Globulin 4.6 gm/dl (2.5-4.0); Thyroid Stimulating Hormone 0.304 uIu/ml (0.300-4.500); Total Protein 6.9 gm/dl (6.4-8.2); Troponin I 0.021 ng/ml (0-0.045)
[2020-06-17 19:07] LABS: Basophils # (auto) 0.01 K/uL (0-0.2); Basophils % (auto) 0.1 %; Immature Granulocytes # (auto) 0.03 K/uL (0.00-0.02); Immature Granulocytes % (auto) 0.2 %; Lymphocytes # (auto) 0.63 K/uL (1.2-3.4); Lymphocytes % (auto) 4.7 %; Microcytosis Present; Monocytes # (auto) 1.69 K/uL (0.11-0.59); Monocytes % (auto) 12.6 %; Neutrophils % (auto) 82.4 %
[2020-06-17] MEDS ORDERED: cefTRIAXone SODIUM 2,000 MG/70 ML BAG IV STA (20:51)
[2020-06-17] MEDS ORDERED: DOXYCYCLINE HYCLATE 100 MG in DEXTROSE 5% 100 ML IV STA (20:51)
--- NOTE | 2020-06-17 20:52 | History & Physical Report ---
Date of Service June 17, 2020 History of Present Illness Chief Complaint: Weakness, worsening cough Primary Care Provider: Saritha Bishop DO History obtained from patient and records. Medical history significant for hypothyroidism, DM2 diet-controlled, CRI (baseline creatinine 1.5), chronic anemia (baseline hemoglobin 10-11), past tobacco abuse Allergies Allergy/AdvReac Type Severity Reaction Status Date / Time Sulfa (Sulfonamide Allergy Intermediate HIVES Verified 06/17/20 20:29 Antibiotics) metoclopramide AdvReac Mild depression Verified 06/17/20 20:29 Home Medications Medication Instructions Recorded Confirmed Type fluticasone propionate 2 spray INTRANASAL DAILY 10/15/18 06/17/20 History levothyroxine 25 mcg PO .MON,TUE,WED,FRI,SAT 10/15/18 06/17/20 History levothyroxine 50 mcg PO .SUN,THUR 10/15/18 06/17/20 History lorazepam 1 mg PO BID PRN 10/15/18 06/17/20 History potassium citrate 10 meq PO HS 10/15/18 06/17/20 History potassium citrate 20 meq PO DAILY 10/15/18 06/17/20 History tramadol 50 mg PO Q6H PRN 10/15/18 06/17/20 History trazodone 25 - 50 mg PO HS 10/15/18 06/17/20 History venlafaxine 75 mg PO DAILY 10/15/18 06/17/20 History Ensure 1 ea PO DAILY 02/16/19 06/17/20 History multivitamin 1 tab PO QAM 02/16/19 06/17/20 History Magnesium Malate 1,000 mg PO DAILY 06/17/20 06/17/20 History amoxicillin 2,000 mg PO UD 06/17/20 06/17/20 History gabapentin [Neurontin] 300 mg PO DAILY 06/17/20 06/17/20 History prazosin 1 mg PO DAILY 06/17/20 06/17/20 History ropinirole 4 mg PO HS 06/17/20 06/17/20 History Past Med/Surg History Medical History (Updated 06/17/20 @ 20:52 by Marko Lyon MD) Anemia due to chronic kidney disease Breast cancer Chronic sinusitis CKD (chronic kidney disease), stage III Depression with anxiety Gastrojejunal ulcer with perforation Hypothyroidism RLS (restless legs syndrome) Surgical History H/O Billroth II operation H/O oophorectomy H/O sinus surgery History of appendectomy History of cataract surgery History of partial mastectomy of left breast History of total right hip replacement S/P subtotal gastrectomy Family History Father Atrial fibrillation Social History Smoking Status: Never smoker Hx Alcohol Use: No Hx Substance Use: No Preferred Language: Niuean Communication Ability: Effective Beliefs That Will Affect Care: None marital status: / marital status details: within last 8-9 mo Current Living Situation: Other Feels Safe at Home: Yes Assistive Devices: Glasses Results & Data Results & Data ([facility]) Vital Signs (Past 12 Hours) Vital Signs Temp Pulse Resp BP Pulse Ox 06/17/20 19:00 84 13 97 06/17/20 18:31 37.3 C 78 18 128/73 96 06/17/20 18:30 94 H 16 92 06/17/20 18:27 98 H 13 06/17/20 18:18 95 H 16 97 06/17/20 18:16 99 H 17 128/73 Laboratory Results Laboratory Results WBC 13.36 K/uL (4.8-10.8) H 06/17/20 18:26 RBC 3.37 M/uL (4.2-5.4) L 06/17/20 18:26 Hgb 7.2 g/dL (12.0-16.0) L 06/17/20 18:26 Hct 24.1 % (37-47) L 06/17/20 18:26 MCV 71.5 fL (80-100) L 06/17/20 18:26 MCH 21.4 pg (25-34) L 06/17/20 18:26 MCHC 29.9 g/dL (32-36) L 06/17/20 18:26 RDW Std Deviation 41.2 fL (36.4-46.3) 06/17/20 18:26 RDW Coeff of Tatiana 15.6 % (11.5-14.5) H 06/17/20 18:26 Plt Count 330 K/uL (130-400) 06/17/20 18: MPV 8.9 fL (7.4-10.4) 06/17/20 18: Immature Gran % (Auto) 0.2 % 06/17/20 18: Neut % (Auto) 82.4 % 06/17/20 18: Lymph % (Auto) 4.7 % 06/17/20 18: Dillon % (Auto) 12.6 % 06/17/20 18: Eos % (Auto) 0.0 % 06/17/20 18: Baso % (Auto) 0.1 % 06/17/20 18: Neut # (Auto) 11.00 K/uL (1.4-6.5) H 06/17/20 18: Lymph # (Auto) 0.63 K/uL (1.2-3.4) L 06/17/20 18: Dillon # (Auto) 1.69 K/uL (0.11-0.59) H 06/17/20 18: Eos # (Auto) 0.00 K/uL (0-0.5) 06/17/20 18: Baso # (Auto) 0.01 K/uL (0-0.2) 06/17/20 18: Immature Gran # (Auto) 0.03 K/uL (0.00-0.02) H 06/17/20 18: Microcytosis Present 06/17/20 18: PT 10.5 Seconds (9.0-12.0) 06/17/20 18: INR 1.0 (0.9-1.1) 06/17/20 18: Sodium 137 mmol/L (136-145) 06/17/20 18: Potassium 3.5 mmol/L (3.5-5.1) 06/17/20 18: Chloride 104 mmol/L (98-107) 06/17/20 18: Carbon Dioxide 26 mmol/L (21-32) 06/17/20 18: Anion Gap 7.0 (3-11) 06/17/20 18: BUN 26 mg/dl (7-18) H 06/17/20 18: Creatinine 1.75 mg/dl (0.6-1.2) H 06/17/20 18: Est Cr Clr Drug Dosing 26.4 ml/min 06/17/20 18: Est GFR ( Amer) 32.7 06/17/20 18: Est GFR (Non-Af Amer) 28.2 06/17/20 18: BUN/Creatinine Ratio 15.0 (10-20) 06/17/20 18: Glucose 169 mg/dl (70-99) H 06/17/20 18: Calcium 8.7 mg/dl (8.5-10.1) 06/17/20 18: Magnesium 2.6 mg/dl (1.8-2.4) H 06/17/20 18: Total Bilirubin 0.4 mg/dl (0.2-1) 06/17/20 18: AST 41 U/L (15-37) H 06/17/20 18: ALT 21 U/L (12-78) 06/17/20 18: Alkaline Phosphatase 108 U/L (45-117) 06/17/20 18: Troponin I 0.021 ng/ml (0-0.045) 06/17/20 18: Total Protein 6.9 gm/dl (6.4-8.2) 06/17/20 18: Albumin 2.3 gm/dl (3.4-5.0) L 06/17/20: Globulin 4.6 gm/dl (2.5-4.0) H 06/17/20 18: Albumin/Globulin Ratio 0.5 (0.9-2) L 06/17/20 18: TSH 0.304 uIu/ml (0.300-4.500) 06/17/20 18:
[2020-06-17 21:52] LABS: Ferritin 80.7 ng/ml (8-388)
[2020-06-17] MEDS ORDERED: ALBUTEROL HFA 8 GM INHALER INH PRN (22:15)
[2020-06-17] MEDS ORDERED: ACETAMINOPHEN 325 MG TAB PO PRN (22:15)
[2020-06-17] MEDS ORDERED: PROMETHAZINE HCL 6.25 MG in SODIUM CHLORIDE 0.9% 50 ML IV PRN (22:15)
[2020-06-17 22:16] LABS: Folate (Folic Acid) > 20.00 ng/ml (>5.38); Vitamin B12 > 2000 pg/ml (193-986)
[2020-06-17] MEDS ORDERED: CARBOHYDRATES FOR HYPOGLYCEMIA PO PRN ×2 (22:26→22:45)
[2020-06-17] MEDS ORDERED: GLUCOSE 10 TABS/TUBE PO PRN ×2 (22:26→22:45)
[2020-06-17] MEDS ORDERED: GLUCOSE 40% GEL 15 GM TUBE PO PRN ×2 (22:26→22:45)
[2020-06-17] MEDS ORDERED: GLUCAGON FOR INJ 1 MG VIAL SQ PRN ×2 (22:26→22:45)
[2020-06-17] MEDS ORDERED: DEXTROSE 50% 50 ML SYRINGE IV PRN ×2 (22:26→22:45)
[2020-06-17] MEDS ORDERED: LORazepam 1 MG TAB PO PRN (22:40)
[2020-06-17] MEDS ORDERED: INSULIN ASPART 100 UNITS/ML 3 ML PEN SC SCH (22:45)
[2020-06-17] MEDS: INSULIN ASPART 100 UNITS/ML 3 ML PEN SC SCH (23:00)
[2020-06-17] MEDS ORDERED: POTASSIUM CHLORIDE 40 MEQ in SODIUM CHLORIDE 0.9% 1000ML 1,000 ML IV ONE (23:00)
--- NOTE | 2020-06-17 23:01 | History & Physical Report ---
Date of Service June 17, 2020 Assessment & Plan (1) Sepsis: Secondary to COVID-19 pneumonia with superimposed bacterial infection ARF on CKD secondary to illness hypothyroidism, euthyroid as of today's TSH DM2 diet-controlled, well-controlled as of recent outpatient hemoglobin A1c of 6.01 April 2020 Acute on chronic anemia, hemoglobin drop from baseline without overt source of bleed for now (History periodic Venofer therapy outpatient given poor oral iron absorption following gastrectomy for PUD) breast cancer status post surgery, chemotherapy past tobacco abuse GMF Cultures, Ceftriaxone, Doxycycline for now No indication for steroid or remdesivir Rx for COVID-19 pneumonia given adequate oxygenation for now. Baseline UA, monitor creatinine response to IVF Anemia work-up, transfuse PRBC if hemoglobin less than 7 ISS BG goal [id number] PT OT eval DVT prophylaxis with heparin subcu Full code Text document was generated using [employer] voice recognition software. It may contain grammatical or spelling errors. Kindly contact undersigned for clarification of any documentation item in question. Admission and Anticipated Discharge Date Admission Date: June 17, 2020 History of Present Illness Chief Complaint: Worsening weakness, cough Primary Care Provider: Saritha Bishop, History obtained from patient and records. Medical history significant for hypothyroidism, DM2 diet-controlled, CRI (baseline creatinine 1.5), chronic anemia (baseline hemoglobin 10-11) periodic outpatient Venofer therapy, breast cancer status post surgery, chemotherapy status post HSCT, PUD status post surgery, past tobacco abuse. Last confinement January 2019 for anaplasmosis status post antibiotic Rx. 1 week history of sinus congestion drainage sore throat and dry cough symptoms. No known COVID-19 exposure. Outpatient COVID-19 test found to be positive. Supportive management recommended at home. Dry cough symptoms later noted to be junky and productive of yellow-green sputum. No chest pain, some shortness of breath on exertion. No fever. Denies black/bloody stools. Poor appetite. Achy all over. Patient consulted [facility]. Medical History as above Surgical History : Mastectomy, sinus surgery, rectopexy with sigmoid resection, appendectomy, oophorectomy left, tonsillectomy, cataract surgeries, partial gastrectomy, sphincteroplasty, hip replacement Family History : A. 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 Allergies Allergy/AdvReac Type Severity Reaction Status Date / Time Sulfa (Sulfonamide Allergy Intermediate HIVES Verified 06/17/20 20:29 Antibiotics) metoclopramide AdvReac Mild depression Verified 06/17/20 20:29 Home Medications Medication Instructions Recorded Confirmed Type fluticasone propionate 2 spray INTRANASAL DAILY 10/15/18 06/17/20 History levothyroxine 25 mcg PO .MON,TUE,WED,FRI,SAT 10/15/18 06/17/20 History levothyroxine 50 mcg PO .SUN,THUR 10/15/18 06/17/20 History lorazepam 1 mg PO BID PRN 10/15/18 06/17/20 History potassium citrate 10 meq PO HS 10/15/18 06/17/20 History potassium citrate 20 meq PO DAILY 10/15/18 06/17/20 History tramadol 50 mg PO Q6H PRN 10/15/18 06/17/20 History trazodone 25 - 50 mg PO HS 10/15/18 06/17/20 History venlafaxine 75 mg PO DAILY 10/15/18 06/17/20 History Ensure 1 ea PO DAILY 02/16/19 06/17/20 History multivitamin 1 tab PO QAM 02/16/19 06/17/20 History Magnesium Malate 1,000 mg PO DAILY 06/17/20 06/17/20 History amoxicillin 2,000 mg PO UD 06/17/20 06/17/20 History gabapentin [Neurontin] 300 mg PO DAILY 06/17/20 06/17/20 History prazosin 1 mg PO DAILY 06/17/20 06/17/20 History ropinirole 4 mg PO HS 06/17/20 06/17/20 History Past Med/Surg History Medical History (Updated 06/17/20 @ 23:07 by Kobe Banegas MD) Anemia due to chronic kidney disease Breast cancer Chronic sinusitis CKD (chronic kidney disease), stage III Depression with anxiety Gastrojejunal ulcer with perforation Hypothyroidism RLS (restless legs syndrome) Surgical History H/O Billroth II operation H/O oophorectomy H/O sinus surgery History of appendectomy History of cataract surgery History of partial mastectomy of left breast History of total right hip replacement S/P subtotal gastrectomy Family History Father Atrial fibrillation Social History Smoking Status: Never smoker Hx Alcohol Use: No Hx Substance Use: No Preferred Language: Hebrew Communication Ability: Effective Beliefs That Will Affect Care: None marital status: / marital status details: within last 8-9 mo Current Living Situation: Other Feels Safe at Home: Yes Assistive Devices: Glasses Review of Systems Review of Systems: As per HPI, all 10 systems reviewed, all other ROS negative Physical Exam Physical Exam: GENERAL: Slightly uncomfortable, pleasant, no respiratory distress, dysphonic SKIN: Pallor, warm HEENT: Pale palpebral conjunctivae, no ptosis, dry buccal mucosa NECK : Supple, no tenderness CHEST : Decreased breath sounds, no tenderness HEART : RRR, no obvious murmurs ABDOMEN: Some distention, nontender RECTAL : Intact sphincter, yellow stool (FOBT negative) EXTREMITIES : No LE swelling/tenderness, no other conspicuous deformities noted NEUROLOGIC : Coherent, no facial asymmetry, no other gross focality Results & Data Results & Data ([facility]) Vital Signs (Past 12 Hours) Vital Signs Temp Pulse Pulse Resp BP BP Pulse Ox 06/17/20 22:57 37.0 C 86 18 121/62 98 06/17/20 21:27 20 117/67 97 06/17/20 21:20 21 95 06/17/20 20:50 77 12 98 06/17/20 20:40 80 15 98 06/17/20 20:30 98 H 13 98 06/17/20 20:20 79 14 96 06/17/20 20:10 84 17 100 06/17/20 20:00 76 12 98 06/17/20 19:50 78 12 97 06/17/20 19:40 80 13 99 06/17/20 19:30 88 19 97 06/17/20 19:20 84 19 98 06/17/20 19:10 89 23 97 06/17/20 19:00 84 13 97 06/17/20 18:31 37.3 C 78 18 128/73 96 06/17/20 18:30 94 H 16 92 06/17/20 18:27 98 H 13 06/17/20 18:18 95 H 16 97 11/24/20 18:16 99 H 17 128/73 Laboratory Results 06/17/20 06/17/20 06/17/20 18:26 18:26 18:26 WBC 13.36 H RBC 3.37 L Hgb 7.2 L Hct 24.1 L MCV 71.5 L MCH 21.4 L MCHC 29.9 L RDW Std Deviation 41.2 RDW Coeff of Tatiana 15.6 H Plt Count 330 MPV 8.9 Immature Gran % (Auto) 0.2 Neut % (Auto) 82.4 Lymph % (Auto) 4.7 Burnett % (Auto) 12.6 Eos % (Auto) 0.0 Baso % (Auto) 0.1 Neut # (Auto) 11.00 H Lymph # (Auto) 0.63 L Burnett # (Auto) 1.69 H Eos # (Auto) 0.00 Baso # (Auto) 0.01 Immature Gran # (Auto) 0.03 H Microcytosis Present PT 10.5 INR 1.0 Sodium 137 Potassium 3.5 Chloride 104 Carbon Dioxide 26 Anion Gap 7.0 BUN 26 H Creatinine 1.75 H Est Cr Clr Drug Dosing 26.4 Est GFR ( Amer) 32.7 Est GFR (Non-Af Amer) 28.2 BUN/Creatinine Ratio 15.0 Glucose 169 H Lactate Calcium 8.7 Magnesium 2.6 H Iron TIBC Transferrin Ferritin Total Bilirubin 0.4 AST 41 H ALT 21 Alkaline Phosphatase 108 Lactate Dehydrogenase Total Creatine Kinase Troponin I 0.021 Total Protein 6.9 Albumin 2.3 L Globulin 4.6 H Albumin/Globulin Ratio 0.5 L Vitamin B12 Folate Procalcitonin TSH 0.304 Blood Type Antibody Screen 06/17/20 06/17/20 06/17/20 20:42 20:42 20:42 WBC RBC Hgb Hct MCV MCH MCHC RDW Std Deviation RDW Coeff of Tatiana Plt Count MPV Immature Gran % (Auto) Neut % (Auto) Lymph % (Auto) Burnett % (Auto) Eos % (Auto) Baso % (Auto) Neut # (Auto) Lymph # (Auto) Burnett # (Auto) Eos # (Auto) Baso # (Auto) Immature Gran # (Auto) Microcytosis PT INR Sodium Potassium Chloride Carbon Dioxide Anion Gap BUN Creatinine Est Cr Clr Drug Dosing Est GFR ( Amer) Est GFR (Non-Af Amer) BUN/Creatinine Ratio Glucose Lactate Calcium Magnesium Iron 13 L TIBC 254 Transferrin 187 L Ferritin 80.7 Total Bilirubin AST ALT Alkaline Phosphatase Lactate Dehydrogenase 321 H Total Creatine Kinase 712 H Troponin I Total Protein Albumin Globulin Albumin/Globulin Ratio Vitamin B12 Folate Procalcitonin TSH Blood Type A Positive Antibody Screen NEGATIVE 06/17/20 06/17/20 06/17/20 20:42 20:42 20:57 WBC RBC Hgb Hct MCV MCH MCHC RDW Std Deviation RDW Coeff of Tatiana Plt Count MPV Immature Gran % (Auto) Neut % (Auto) Lymph % (Auto) Burnett % (Auto) Eos % (Auto) Baso % (Auto) Neut # (Auto) Lymph # (Auto) Burnett # (Auto) Eos # (Auto) Baso # (Auto) Immature Gran # (Auto) Microcytosis PT INR Sodium Potassium Chloride Carbon Dioxide Anion Gap BUN Creatinine Est Cr Clr Drug Dosing Est GFR ( Amer) Est GFR (Non-Af Amer) BUN/Creatinine Ratio Glucose Lactate 1.1 Calcium Magnesium Iron TIBC Transferrin Ferritin Total Bilirubin AST ALT Alkaline Phosphatase Lactate Dehydrogenase Total Creatine Kinase Troponin I Total Protein Albumin Globulin Albumin/Globulin Ratio Vitamin B12 > 2000 H Folate > 20.00 Procalcitonin 6.15 H TSH Blood Type Antibody Screen Diagnostic Findings Chest x-ray : There is new right perihilar airspace opacity. This likely represents a pneumonia. Recommend follow-up to ensure resolution. EKG as per my interpretation : Rate 80, NSR, LAD, LAFB, T wave abnormality septal leads, low voltage
[2020-06-17 23:32] LABS: Reticulocyte % < 0.5 % (0.5-2.0); Reticulocytes # < 0.02 10^6/uL (0.02-0.10)
[2020-06-18] MEDS: HEPARIN SOD 5,000 UNIT/0.5 ML VIAL SQ SCH ×3 (00:14→14:35)
[2020-06-18] MEDS: traMADol HCL 50 MG TABLET PO PRN ×4 (00:17→18:52)
[2020-06-18] MEDS: traZODone HCL 50 MG TAB PO SCH ×2 (00:18→21:02)
[2020-06-18] MEDS: GABAPENTIN 300 MG CAP PO SCH ×2 (00:21→21:01)
[2020-06-18] MEDS: PRAZOSIN HCL 1 MG CAP PO SCH ×2 (00:21→21:01)
[2020-06-18] MEDS: guaiFENesin 600 MG TABCR PO SCH ×3 (01:25→21:02)
[2020-06-18] MEDS ORDERED: oxyCODONE HCL IR 5 MG TAB (IMMEDIATE RELEASE) PO PRN (03:29)
[2020-06-18] MEDS ORDERED: HYDROmorphone INJ 0.5 MG/0.5 ML SYR IV PRN (03:30)
[2020-06-18 03:58] LABS: BUN Creatinine Ratio 18.2 (10-20); Calcium 7.7 mg/dl (8.5-10.1); Creatinine Clr Calc Pharmacy 33.5 ml/min; Est GFR (African American) 43.5; Est GFR (Non-African American) 37.6; Potassium 3.6 mmol/L (3.5-5.1)
[2020-06-18 04:05] LABS: Hematocrit (blood only) 21.2 % (37-47); Hemoglobin 6.2 g/dL (12.0-16.0); Mean Corpuscular Hemoglobin 21.2 pg (25-34); Mean Corpuscular Hgb Conc 29.2 g/dL (32-36); Mean Corpuscular Volume 72.4 fL (80-100); Mean Platelet Volume 9.4 fL (7.4-10.4); Platelet Count 326 K/uL (130-400); RDW Coefficient of Variation 15.6 % (11.5-14.5); Red Blood Count 2.93 M/uL (4.2-5.4); White Blood Count 10.94 K/uL (4.8-10.8)
[2020-06-18 04:07] LABS: Basophils # (auto) 0.01 K/uL (0-0.2); Basophils % (auto) 0.1 %; Hypochromasia Present; Immature Granulocytes # (auto) 0.04 K/uL (0.00-0.02); Immature Granulocytes % (auto) 0.4 %; Lymphocytes # (auto) 1.31 K/uL (1.2-3.4); Monocytes # (auto) 1.08 K/uL (0.11-0.59); Monocytes % (auto) 9.9 %; Neutrophils % (auto) 77.6 %
[2020-06-18] MEDS ORDERED: SODIUM CHLORIDE 0.9% 250 ML IV PRN ×2 (04:07→08:58)
[2020-06-18] MEDS ORDERED: COUGH DROP (SUGAR FREE) LOZ 24 LOZ/1 BOX BUCCAL ONE (04:19)
[2020-06-18] MEDS: LEVOTHYROXINE SODIUM 25 MCG TABLET PO SCH (06:35)
[2020-06-18] MEDS: INSULIN ASPART 100 UNITS/ML 3 ML PEN SC SCH ×4 (08:05→21:36)
[2020-06-18] MEDS: FLUTICASONE PROPIONATE NA SPR 16 GM BTL SCH (08:35)
[2020-06-18] MEDS: VENLAFAXINE HCL XR 75 MG CAPXR PO SCH (08:35)
[2020-06-18] MEDS ORDERED: DOXYCYCLINE HYCLATE 100 MG CAP PO SCH (09:00)
[2020-06-18 09:06] LABS: Appearance Urine Clear (Clear); Bacteria Urine Automated Negative (Negative); Bilirubin Urine Negative (Negative); Blood Urine 1+ (Negative); Color Urine Yellow; Glucose Urine UA Negative (Negative); Ketones Urine Negative (Negative); Leukocyte Esterase Urine Negative (Negative); Nitrite Urine Negative (Negative); Protein Urine 2+ (Negative); Specific Gravity Urine 1.019 (1.000-1.030); Urobilinogen Urine Negative (Negative); pH Urine 5.5 (4.5-7.5)
[2020-06-18 09:46] LABS: Hematocrit (blood only) 26.3 % (37-47); Hemoglobin 7.9 g/dL (12.0-16.0)
[2020-06-18] MEDS: MULTIVITAMIN TAB PO SCH (10:06)
[2020-06-18] MEDS ORDERED: PIPERACILL/TAZOBAC CONSULT ACTIVE PRN (13:52)
[2020-06-18] MEDS ORDERED: PIPERACILLIN/TAZOBACTAM 2.25 GM in DEXTROSE 5% 100 ML IV SCH (14:00)
--- NOTE | 2020-06-18 14:06 | Hospitalist Progress Note ---
Date of Service June 18, 2020 Assessment & Plan (1) Sepsis: Secondary to COVID-19 pneumonia with superimposed bacterial infection will change Abx to Zosyn for broader coverage No indication for steroid or remdesivir Rx for COVID-19 pneumonia given adequate oxygenation for now. acute renal failure with CKD stage 3: due to acute illness resovled after IV hydration Cr improved at baseline hypothyroidism, euthyroid as of today's TSH DM2 diet-controlled, well-controlled as of recent outpatient hemoglobin A1c of 6.01 April 2020 Anemia of chronic disease : Anemia work-up, transfuse PRBC if hemoglobin less than 7 hemoglobin drop from baseline without overt source of bleed for now given PRBC trasnfusion (History periodic Venofer therapy outpatient given poor oral iron absorption following gastrectomy for PUD) breast cancer status post surgery, chemotherapy past tobacco abuse DVT prophylaxis with heparin subcu Full code Admission and Anticipated Discharge Date Admission Date: June 17, 2020 Subjective continues to have productive cough with greenish /yellow sputum complains of sore throat -tolerating liquid , advanced to full liquid today no hypoxia or SOB no chest pain , no nausea or vomiting feels tired no fever or chills Review of Systems Review of Systems: All systems reviewed & are unremarkable except as noted in HPI & below Constitutional: no fever and no chills Respiratory: + cough Physical Exam Constitutional: WD/WN, vitals as above Eyes: PERRL, conjunctivae normal, anicteric sclerae ENMT: external ear and nose normal, oropharynx normal Neck: trachea midline, no thyromegaly Respiratory: Auscultation: + crackles and + rales; no wheezes Cardiovascular: RRR, no murmur, no edema Gastrointestinal (Abdomen): normal bowel sounds, soft, nontender, no hepatosplenomegaly Musculoskeletal: no cyanosis or clubbing, extremities motor strength 5/5 Neurologic: PERRL, EOMI, accommodation nl, no face palsy, no dysarthria Psychiatric: A+Ox3, euthymic affect Results & Data Results & Data ([facility]) Vital Signs (Past 12 Hours) Vital Signs Temp Pulse Resp BP Pulse Ox 06/18/20 12:35 37.2 C 87 18 138/71 96 06/18/20 11:51 37.1 C 83 16 135/78 95 06/18/20 11:25 37.1 C 81 16 145/74 H 96 06/18/20 10:51 37.3 C 85 18 130/73 93 06/18/20 10:21 37.3 C 85 18 130/78 93 06/18/20 10:06 37.7 C H 81 16 133/77 96 06/18/20 10:05 37.8 C H 86 16 128/73 96 06/18/20 09:47 37.3 C 88 16 148/80 H 06/18/20 07:46 37.3 C 89 22 133/67 95 06/18/20 06:45 37.7 C H 84 20 127/69 95 06/18/20 06:15 37.5 C 84 18 138/70 97 06/18/20 06:00 37.5 C 82 18 130/72 100 06/18/20 05:42 37.4 C 85 16 130/68 99
[2020-06-18] MEDS ORDERED: PIPERACILLIN/TAZOBACTAM 3.375 GM in DEXTROSE 5% 100 ML IV ONE (14:30)
[2020-06-18] MEDS ORDERED: ONDANSETRON INJ 2 MG/ML 2 ML VIAL IV PRN (19:04)
[2020-06-18] MEDS ORDERED: cefTRIAXone SODIUM 2,000 MG in DEXTROSE 5% 50 ML IV SCH (21:00)
[2020-06-18] MEDS ORDERED: rOPINIRole HCL 1 MG TABLET PO PRN (21:00)
[2020-06-18] MEDS: PIPERACILLIN/TAZOBACTAM 3.375 GM in DEXTROSE 5% 100 ML IV SCH (21:03)
--- NOTE | 2020-06-18 21:13 | Electrocardiogram Report ---
Test Reason : Blood Pressure : / mmHG Vent. Rate : 082 BPM Atrial Rate : 082 BPM P-R Int : 142 ms QRS Dur : 092 ms QT Int : 384 ms P-R-T Axes : 058 -18 042 degrees QTc Int : 448 ms Normal sinus rhythm Low voltage QRS Borderline ECG When compared with ECG of 16-FEB-2019 11:01, No significant change Confirmed by West Martinez ([id number]) on 06/18/2020 9:12:48 PM Referred By: REFERRED SELF Confirmed By:West Martinez
[2020-06-19] MEDS: PIPERACILLIN/TAZOBACTAM 3.375 GM in DEXTROSE 5% 100 ML IV SCH ×3 (04:31→20:58)
[2020-06-19] MEDS: traMADol HCL 50 MG TABLET PO PRN ×3 (04:33→19:42)
[2020-06-19] MEDS ORDERED: LEVOTHYROXINE SODIUM 50 MCG TABLET PO SCH (06:30)
[2020-06-19] MEDS: FLUTICASONE PROPIONATE NA SPR 16 GM BTL SCH (06:38)
[2020-06-19 07:56] LABS: Hematocrit (blood only) 27.8 % (37-47); Hemoglobin 8.6 g/dL (12.0-16.0); Mean Corpuscular Hemoglobin 23.6 pg (25-34); Mean Corpuscular Hgb Conc 30.9 g/dL (32-36); Mean Corpuscular Volume 76.4 fL (80-100); Mean Platelet Volume 9.5 fL (7.4-10.4); Platelet Count 338 K/uL (130-400); RDW Coefficient of Variation 17.3 % (11.5-14.5); RDW Standard Deviation 48.5 fL (36.4-46.3); Red Blood Count 3.64 M/uL (4.2-5.4)
[2020-06-19] MEDS: INSULIN ASPART 100 UNITS/ML 3 ML PEN SC SCH ×4 (08:14→21:56)
[2020-06-19] MEDS: guaiFENesin 600 MG TABCR PO SCH ×2 (08:35→21:01)
[2020-06-19] MEDS: VENLAFAXINE HCL XR 75 MG CAPXR PO SCH (08:35)
[2020-06-19] MEDS: MULTIVITAMIN TAB PO SCH (08:35)
[2020-06-19 09:38] LABS: BUN Creatinine Ratio 15.8 (10-20); Calcium 8.6 mg/dl (8.5-10.1); Creatinine Clr Calc Pharmacy 35.3 ml/min; Est GFR (African American) 46.4; Potassium 4.2 mmol/L (3.5-5.1)
[2020-06-19] MEDS: POLYETHYLENE (MIRALAX) 17 GM PACK PO SCH (12:34)
[2020-06-19] MEDS ORDERED: guaiFENesin/CODEINE 100MG/10MG 5ML UDC PO PRN (16:11)
[2020-06-19] MEDS ORDERED: guaiFENesin/CODEINE 100MG/10MG 5ML UDC PO STA (16:11)
[2020-06-19] MEDS ORDERED: dexAMETHasone 6 MG in SYRINGE 0 ML IV SCH (16:15)
[2020-06-19] MEDS: BENZONATATE 100 MG CAPSULE PO SCH ×2 (17:13→21:02)
--- NOTE | 2020-06-19 17:17 | Hospitalist Progress Note ---
Date of Service June 19, 2020 Assessment & Plan (1) Sepsis: Secondary to COVID-19 pneumonia with superimposed bacterial infection clinically improving On IV Zosyn/Doxycycline will change Abx to PO Levaquin Remdesivir was not ordered for COVID-19 pneumonia, as patient was not hypoxic: Does not meet the criteria Will order IV steroid for continued shortness of breath, episode of wheezing acute renal failure with CKD stage 3: due to acute illness Resolved after IV hydration Cr improved at baseline Sore throat: Secondary to COVID-19 pneumonia, Ordered for Dillon Toribio, Was on clear liquid diet, advance to soft diet Symptomatic management Antibiotics as above DM2 diet-controlled, well-controlled as of recent outpatient hemoglobin A1c of 6.01 April 2020 Anemia of chronic disease : Anemia [id number] severe iron deficiency anemia given PRBC trasnfusion globin above 8 Ordered IV Venofer breast cancer status post surgery, chemotherapy past tobacco abuse DVT prophylaxis: Subcu Lovenox as per COVID-19 prophylaxis Full code Update given to daughter over phone Disposition: Expected to be discharged home when medically stable Admission and Anticipated Discharge Date Admission Date: June 17, 2020 Subjective Follow-up visit for sepsis, pneumonia due to COVID-19 virus feels much better today . sore throat has improved no fever or chills Patient continues to have dry nonproductive cough, Review of Systems Review of Systems: All systems reviewed & are unremarkable except as noted in HPI & below Constitutional: + problem reported; no fever sore throat Respiratory: + cough Physical Exam Constitutional: WD/WN, vitals as above Eyes: PERRL, conjunctivae normal, anicteric sclerae ENMT: external ear and nose normal, oropharynx normal Neck: trachea midline, no thyromegaly Respiratory: Auscultation: + crackles and + rales; no wheezes Cardiovascular: RRR, no murmur, no edema Gastrointestinal (Abdomen): normal bowel sounds, soft, nontender, no hepatosplenomegaly Musculoskeletal: no cyanosis or clubbing, extremities motor strength 5/5 Neurologic: PERRL, EOMI, accommodation nl, no face palsy, no dysarthria Psychiatric: A+Ox3, euthymic affect Results & Data Results & Data ([facility]) Vital Signs (Past 12 Hours) Vital Signs Temp Pulse Resp BP Pulse Ox 06/19/20 17:10 37.3 C 82 18 133/72 98 06/19/20 08:08 137/65 94 06/19/20 07:09 37.3 C 83 18 161/72 H 96 06/19/20 06:57 36.6 C 70 18 117/54 L 95
[2020-06-19] MEDS ORDERED: IRON SUCROSE 400 MG in SODIUM CHLORIDE 0.9% 250 ML IV ONE (18:00)
[2020-06-19] MEDS: ENOXAPARIN INJ 40 MG/0.4 ML SYR SQ SCH (18:32)
[2020-06-19] MEDS: DOCUSATE SODIUM 100 MG CAP PO SCH (21:01)
[2020-06-19] MEDS: GABAPENTIN 300 MG CAP PO SCH (21:02)
[2020-06-19] MEDS: traZODone HCL 50 MG TAB PO SCH (21:03)
[2020-06-19] MEDS: PRAZOSIN HCL 1 MG CAP PO SCH (21:03)
[2020-06-19] MEDS: DOXYCYCLINE HYCLATE 100 MG CAP PO SCH (21:03)
[2020-06-20] MEDS: PIPERACILLIN/TAZOBACTAM 3.375 GM in DEXTROSE 5% 100 ML IV SCH (05:16)
[2020-06-20] MEDS: ENOXAPARIN INJ 40 MG/0.4 ML SYR SQ SCH (05:16)
[2020-06-20] MEDS: LEVOTHYROXINE SODIUM 25 MCG TABLET PO SCH (05:16)
[2020-06-20] MEDS: DOXYCYCLINE HYCLATE 100 MG CAP PO SCH (08:45)
[2020-06-20] MEDS: BENZONATATE 100 MG CAPSULE PO SCH ×2 (08:45→14:05)
[2020-06-20] MEDS: DOCUSATE SODIUM 100 MG CAP PO SCH (08:46)
[2020-06-20] MEDS: MULTIVITAMIN TAB PO SCH (08:46)
[2020-06-20] MEDS: LACTOBACILLUS ACIDOPHILUS 1 GM PACK PO SCH ×2 (08:46→12:27)
[2020-06-20] MEDS: POLYETHYLENE (MIRALAX) 17 GM PACK PO SCH (08:46)
[2020-06-20] MEDS: FLUTICASONE PROPIONATE NA SPR 16 GM BTL SCH (08:46)
[2020-06-20] MEDS: guaiFENesin 600 MG TABCR PO SCH (08:46)
[2020-06-20] MEDS: VENLAFAXINE HCL XR 75 MG CAPXR PO SCH (08:46)
--- NOTE | 2020-06-20 09:13 | XRay Report ---
XR chest 1V portable CLINICAL HISTORY: COVID 19 pneumonia /cough COMPARISON STUDY: Chest radiograph June 17, 2020. FINDINGS: Right lower lung consolidation has increased in extent since prior exam. Left lung is clear . No cavitation is identified. There is a trace right pleural effusion. No pneumothorax is present. P ulmonary vascularity is normal. Cardiomediastinal silhouette is unremarkable. IMPRESSION: 1. Increase in extent of right lower lung consolidation suggestive of pneumonia. 2. Trace right pleural effusion. ACT 112: Negative or not required by law. Electronically signed by: Alexandro Dodson M.D. 06/20/2020 9:11 AM
[2020-06-20] MEDS: INSULIN ASPART 100 UNITS/ML 3 ML PEN SC SCH ×2 (09:17→12:34)
[2020-06-20 09:33] LABS: Hematocrit (blood only) 28.6 % (37-47); Hemoglobin 8.8 g/dL (12.0-16.0); Mean Corpuscular Hgb Conc 30.8 g/dL (32-36); Mean Corpuscular Volume 74.7 fL (80-100); Mean Platelet Volume 9.6 fL (7.4-10.4); Platelet Count 386 K/uL (130-400); RDW Coefficient of Variation 17.9 % (11.5-14.5); Red Blood Count 3.83 M/uL (4.2-5.4); White Blood Count 5.82 K/uL (4.8-10.8)
[2020-06-20 10:01] LABS: BUN Creatinine Ratio 16.7 (10-20); Calcium 8.7 mg/dl (8.5-10.1); Est GFR (African American) 42.8; Est GFR (Non-African American) 36.9; Potassium 4.6 mmol/L (3.5-5.1)
[2020-06-20] MEDS ORDERED: levoFLOXacin 500 MG TAB PO ONE (11:00)
[2020-06-20] MEDS: traMADol HCL 50 MG TABLET PO PRN (11:22)
--- NOTE | 2020-06-20 14:14 | Discharge Summary ---
Date of Service June 20, 2020 Admission HPI Per Admitting Provider History of Present Illness Chief Complaint: Worsening weakness, cough Primary Care Provider: Saritha Bishop, History obtained from patient and records. Medical history significant for hypothyroidism, DM2 diet-controlled, CRI (baseline creatinine 1.5), chronic anemia (baseline hemoglobin 10-11) periodic outpatient Venofer therapy, breast cancer status post surgery, chemotherapy status post HSCT, PUD status post surgery, past tobacco abuse. Last confinement January 2019 for anaplasmosis status post antibiotic Rx. 1 week history of sinus congestion drainage sore throat and dry cough symptoms. No known COVID-19 exposure. Outpatient COVID-19 test found to be positive. Supportive management recommended at home. Dry cough symptoms later noted to be junky and productive of yellow-green sputum. No chest pain, some shortness of breath on exertion. No fever. Denies black/bloody stools. Poor appetite. Achy all over. Principal Diagnosis COVID 19 Pneumonia Discharge Exam Constitutional WD/WN, vitals as above Eyes PERRL, conjunctivae normal, anicteric sclerae ENMT external ear and nose normal, oropharynx normal Neck trachea midline, no thyromegaly Respiratory Auscultation: + crackles and + rales; no wheezes Cardiovascular RRR, no murmur, no edema Gastrointestinal (Abdomen) normal bowel sounds, soft, nontender, no hepatosplenomegaly Musculoskeletal no cyanosis or clubbing, extremities motor strength 5/5 Neurologic PERRL, EOMI, accommodation nl, no face palsy, no dysarthria Psychiatric A+Ox3, euthymic affect Discharge Data Allergies Allergy/AdvReac Type Severity Reaction Status Date / Time Sulfa (Sulfonamide Allergy Intermediate HIVES Verified 06/17/20 20:29 Antibiotics) metoclopramide AdvReac Mild depression Verified 06/17/20 20:29 Consultations 06/17/20 19:34 ED Decision to Admit Stat 06/17/20 22:15 Consult Case Management - Discharge Planning Routine Hospital Course (1) Sepsis: Secondary to COVID-19 pneumonia with superimposed bacterial infection Remdesivir was not ordered for COVID-19 pneumonia, as patient was not hypoxic: clinically improved no hypoxa , sore throat has improved , has been afebrile since admission sputum culture staph aureus pt was initially ordered PO Levaquin later changed Abx to PO Doxycycline acute renal failure with CKD stage 3: due to acute illness Resolved after IV hydration Cr improved at baseline Sore throat: Secondary to COVID-19 pneumonia, improved Symptomatic management Antibiotics as above DM2 diet-controlled, well-controlled as of recent outpatient hemoglobin A1c of 6.01 April 2020 Anemia of chronic disease : Anemia [id number] severe iron deficiency anemia given PRBC trasnfusion globin above 8 given IV Venofer breast cancer status post surgery, chemotherapy past tobacco abuse DVT prophylaxis: Subcu Lovenox as per COVID-19 prophylaxis Disposition: discharged home today Total Time Total Time Spent Total Time Spent (In Minutes): 30 min Total Time Includes: Discharge Planning and Medication Reconciliation Discharge Plan Discharge Items Patient Disposition: Home - Self-Care Reason For Visit: COVID PNX Discharge Diagnosis: COVID 19 PNEUMONIA Activity: Resume your previous activity Non-emergency contact: Primary Care Provider Call non-emergency contact if: you have any medication questions Follow-up/Referrals: Saritha Bishop, [Primary Care Provider] - (HOSPITAL FOLLOW UP IN A WEEK , OFFICE WILL CALL WITH APPOITNMENT ) Diet: Regular Addtl Attending Provider Instructions: Suspected or Confirmed COVID-19 Instructions Thank you for visiting the Emergency Department today. Your patience is greatly appreciated. You have been screened by our medical staff who determined that you are safe to go home. We ask you follow these simple instructions to remain as healthy as possible. Please make every effort to protect those around you and to reduce transmission of any infections. Be especially careful when near or around high-risk individuals, which includes the elderly, those with weak immune systems, and anyone with preexisting medical diseases. Smoking may increase your chances of developing more severe disease if you contract Coronavirus. If you do smoke, today is the best day of your life to stop. Stay home except to get medical care. If you develop chest pain, uncontrolled fevers, confusion, difficulty breathing, vomiting, passing out, severe headaches, or worsening of your condition, call the Emergency Department for advice 24 hrs a day at [phone] or return for re-evaluation. People who are mildly to moderately ill with COVID-19 are able to isolate at home during their illness. 1. You should restrict activities outside your home, except for getting medical care. 2. Do not go to work, school, or public areas. 3. Avoid using public transportation, ride-sharing, or taxis. 4. Drink plenty of non-alcoholic fluids. 5. Eat healthy. 6. Continue current medications unless told otherwise by your providers. 7. Use Tylenol (acetaminophen), if not allergic, every six hours for control of aches and fevers. Follow the instructions on the bottle. There are several possible scenarios to your visit: At this point, with community transmission, CONSIDER YOURSELF INFECTIOUS. You should SELF-QUARANTINE FOR 14 DAYS (possibly longer if you continue to have fever). A. You were deemed high risk for COVID-19 and testing was performed. Testing can take several days or more to return. An important point to remember is that testing is not perfect and a NEGATIVE test result is not a guarantee that you are free from infection. Your risk of infection must be taken into account and conveyed to you by your provider. A POSITIVE test will trigger action by the Department of Health to track contacts and locations. You should do the right thing and contact all people you were close with and notify them so we can halt the spread. If you need to seek medical care or come in contact with people, let them know ahead of time by calling or keeping a safe distance in person (greater than 6 feet). B. You were deemed high risk for COVID-19 and testing was not performed. This may result from a lack of testing supplies or your risk was deemed so high that you very likely have contracted the disease and assumed to have contracted the illness. Other factors may be present as well. You should self-quarantine for the 14 days (possibly longer if you continue to have fever) regardless of testing. C. Your risk was very low and you were found to have another cause, Strep throat, RSV, a common cold, or Influenza. These illnesses are extremely common and can mimic the symptoms of COVID-19. In these cases, testing for COVID-19 may be deferred. HOME ISOLATION: ISOLATION IS EXTREMELY IMPORTANT TO STOP THE SPREAD OF THE DISEASE AND PREVENTING OTHERS FROM GETTING SIGNIFICANTLY ILL!!!!! The following information about Home Isolation is from the CDC Website: https://www.cdc.gov/coronavirus/2019-ncov/hcp/yhkpajqw-ggerali-kpcwdm.html PEOPLE: Separate yourself from other people and animals in your home. As much as possible, you should stay in a specific room and away from other people in your home. Also, you should use a separate bathroom, if available. 1. You should wear a face mask when you are around other people (e.g., sharing a room or vehicle) or pets and before you enter a healthcare providers office. If you are not able to wear a face mask (for example, because it causes trouble breathing), then people who live with you should not stay in the same room with you, or they should wear a face mask if they enter your room. 2. Cover your mouth and nose with a tissue when you cough or sneeze. Throw used tissues in a lined trash can. Immediately wash your hands with soap and water for at least 20 seconds or, if soap and water are not available, clean your hands with an alcohol-based hand vehicle check in clerk that contains at least 60% alcohol. 3. Clean your hands often. Wash your hands often with soap and water for at least 20 seconds, especially after blowing your nose, coughing, or sneezing; going to the bathroom; and before eating or preparing food. If soap and water are not readily available, use an alcohol-based hand vehicle check in clerk with at least 60% alcohol, covering all surfaces of your hands and rubbing them together until they feel dry. Soap and water are the best option if hands are visibly dirty. Avoid touching your eyes, nose, and mouth with unwashed hands. 4. Avoid sharing personal household items. You should not share dishes, drinking glasses, cups, eating utensils, towels, or bedding with other people or pets in your home. After using these items, they should be washed thoroughly with soap and water. 5. Clean all high-touch surfaces every day. High touch surfaces include counters, tabletops, doorknobs, bathroom fixtures, toilets, phones, keyboards, tablets, and bedside tables. Also, clean any surfaces that may have blood, stool, or body fluids on them. Use a household cleaning spray or wipe, according to the label instructions. Labels contain instructions for safe and effective use of the cleaning product including precautions you should take when applying the product, such as wearing gloves and making sure you have good ventilation during use of the product. ANIMALS: You should restrict contact with pets and other animals while you are sick with COVID-19, just like you would around other people. Although there have not been reports of pets or other animals becoming sick with COVID-19, it is still recommended that people sick with COVID-19 limit contact with animals until more information is known about the virus. When possible, have another member of your household care for your animals while you are sick. If you are sick with COVID-19, avoid contact with your pet, including petting, snuggling, being kissed or licked, and sharing food. If you must care for your pet or be around animals while you are sick, wash your hands before and after you interact with pets and wear a face mask. CALL AHEAD BEFORE VISITING YOUR DOCTOR: Appointments, policies, procedures, and schedules have change significantly since the outbreak of COVID-19. If you have a medical appointment, call the healthcare provider and tell them that you have or may have COVID-19. This will help the healthcare providers office take steps to keep other people from getting infected or exposed. MONITOR YOUR SYMPTOMS: Seek prompt medical attention if your illness is worsening (e.g., difficulty breathing). Before seeking care, call your healthcare provider and tell them that you have, or are being evaluated for, COVID-19. Put on a face mask before you enter the facility. These steps will help the healthcare providers office to keep other people in the office or waiting room from getting infected or exposed. Persons who are placed under active monitoring or facilitated self- monitoring should follow instructions provided by their local health department or occupational health professionals, as appropriate. When working with your local health department check their available hours. If you have a medical emergency and need to call 911, NOTIFY DISPATCH PERSONNEL AND EMS that you have, or are being evaluated for COVID-19!!! If possible, put on a face mask before emergency medical services arrive. Common Symptoms of Coronavirus disease 2019 (COVID-19): The following symptoms may appear 2-14 days after exposure. Fever Dry Cough Shortness of breath (Some patients are also experiencing muscle aches, racing heart beats, nausea, and diarrhea) DISCONTINUING HOME ISOLATION: Patients with confirmed COVID-19 should remain under home isolation precautions until the risk of secondary transmission to others is thought to be low. The decision to discontinue home isolation precautions should be made on a akiw-lo-qhqz basis, in consultation with healthcare providers and state and local health departments. This is an ever changing treatment and containment strategy. Remain calm, be flexible, and stay healthy! Want more information on COVID-19? Please visit the following websites. Center for Disease Control and Prevention. https://www.cdc.gov/coronavirus/2019-ncov/index.html [employer]. https://www.acep.org/dp-ygiywea-gwcke/infectious-diseases/coronavirus/ Addtl [employer] Provider Instructions: please stay home quarantined for next 1 week or till your cough has resolved . Pending Studies at Discharge: No Stand-Alone Forms: [employer], Smoking Cessation Medications and DC Order Prescriptions: New doxycycline hyclate 100 mg capsule 100 mg PO BID 7 Days Qty: 14 RF: 0 Continued multivitamin Tablet 1 tab PO QAM RF: 0 Ensure Liquid 1 ea PO DAILY RF: 0 venlafaxine 75 mg tablet 75 mg PO DAILY RF: 0 trazodone 50 mg tablet 25 - 50 mg PO HS RF: 0 tramadol 50 mg tablet 50 mg PO Q6H PRN (Reason: Pain) RF: 0 levothyroxine 50 mcg tablet 50 mcg PO .SUN,THUR RF: 0 levothyroxine 50 mcg tablet 25 mcg PO .MON,TUE,WED,FRI,SAT RF: 0 potassium citrate 10 mEq (1,080 mg) Tablet Extended Release 20 meq PO DAILY RF: 0 potassium citrate 10 mEq (1,080 mg) Tablet Extended Release 10 meq PO HS RF: 0 lorazepam 1 mg tablet 1 mg PO BID PRN (Reason: Anxiety) RF: 0 fluticasone propionate 50 mcg/actuation spray,suspension 2 spray intranasal DAILY RF: 0 prazosin 1 mg capsule 1 mg PO DAILY RF: 0 gabapentin [Neurontin] 300 mg capsule 300 mg PO DAILY RF: 0 ropinirole 4 mg tablet extended release 24 hr 4 mg PO HS RF: 0 Magnesium Malate 1,000 mg PO DAILY RF: 0 amoxicillin 500 mg tablet 2,000 mg PO UD RF: 0 Discharge Orders: Discharge Order (Routine); Ordered 06/20/20 Ordered By: Diann Jara/Other Patient Handouts: 2018-nCoV, Levofloxacin tablets Admission Data Admit Date/Time: 06/17/20 20:56 Attending Provider: Diann Gibson Admit Provider: Kobe Banegas Primary Care Provider: Saritha Bishop Other Providers: Kobe Banegas Other Interventions: Discharge Summary Assessment (RN) Last Done: 06/20/20 13:44
--- NOTE | 2020-06-21 09:58 | Communication Note ---
Date of Service: June 21, 2020 Attending addendum : sputum culture report available : Staph auresus-sensitivity pending pt discharged on Levaquin PO . will change the Abx to PO Doxycycline for 7 days pt will be updated over phone result and updated Abx info forwarded to Family Physician Dr Dario Gibson MD
[2020-06-21] MEDS ORDERED: levoFLOXacin 250 MG TABLET PO SCH (11:00)
== END 2020-06-20 15:10 | disposition home or self-care (01) | DRG 871 ==
LOC: ED 18:07 → 3W 20:56

== ENCOUNTER 2020-12-26 12:39 | Inpatient (IN) ==
[2020-12-26] MEDS ORDERED: MoRPHine SULFATE 4 MG/ML 1 ML CARP\\VIAL IV STA (13:00)
[2020-12-26] MEDS ORDERED: ONDANSETRON INJ 2 MG/ML 2 ML VIAL IV STA (13:00)
[2020-12-26 13:30] LABS: Basophils # (auto) 0.02 K/uL (0-0.2); Basophils % (auto) 0.2 %; Eosinophils # (auto) 0.23 K/uL (0-0.5); Eosinophils % (auto) 2.7 %; Hematocrit (blood only) 29.6 % (37-47); Hemoglobin 9.2 g/dL (12.0-16.0); Immature Granulocytes # (auto) 0.01 K/uL (0.00-0.02); Immature Granulocytes % (auto) 0.1 %; Lymphocytes # (auto) 1.52 K/uL (1.2-3.4); Lymphocytes % (auto) 17.6 %; Mean Corpuscular Hemoglobin 25.8 pg (25-34); Mean Corpuscular Hgb Conc 31.1 g/dL (32-36); Mean Corpuscular Volume 83.1 fL (80-100); Mean Platelet Volume 9.2 fL (7.4-10.4); Monocytes # (auto) 0.79 K/uL (0.11-0.59); Monocytes % (auto) 9.1 %; Neutrophils # (auto) 6.07 K/uL (1.4-6.5); Neutrophils % (auto) 70.3 %; Platelet Count 373 K/uL (130-400); RDW Coefficient of Variation 13.8 % (11.5-14.5); RDW Standard Deviation 42.2 fL (36.4-46.3); Red Blood Count 3.56 M/uL (4.2-5.4); White Blood Count 8.64 K/uL (4.8-10.8)
[2020-12-26 13:37] LABS: Partial Thromboplastin Ratio 0.8
[2020-12-26 13:47] LABS: BUN Creatinine Ratio 25.7 (10-20); Calcium 8.9 mg/dl (8.5-10.1); Est GFR (African American) 49.7 ml/min; Est GFR (Non-African American) 42.9 ml/min; Potassium 4.4 mmol/L (3.5-5.1)
--- NOTE | 2020-12-26 13:47 | XRay Report ---
LEFT ANKLE 3 VIEWS CLINICAL HISTORY: Left ankle injury. Known fracture. FINDINGS: 3 views of the left ankle are obtained. No prior studies are available for comparison at th e time of dictation. There is a comminuted, mildly displaced, and angulated fracture through the dist al shaft of the fibula. There is also a horizontally oriented fracture through the base of the medial malleolus. There is lateral displacement of the medial malleolar fragment by up to 8 mm, with latera l subluxation of the talus. The tibiotalar joint is anatomically aligned in the AP dimension. There m ay also be a fracture of the posterior tibial plafond, only seen on the oblique view. There is an ank le joint effusion. Significant soft tissue edema is present around ankle. There is a large dorsal jason caneal enthesophyte. IMPRESSION: Distal tibial and fibular fractures and ankle dislocation as above. Electronically signed by: Efe Abbasi M.D. 12/26/2020 1:45 PM
[2020-12-26 13:48] LABS: Partial Thromboplastin Time < 20.0 Seconds (21.0-31.0)
[2020-12-26] MEDS ORDERED: HYDROmorphone INJ 0.5 MG/0.5 ML SYR IV STA ×2 (14:22→15:03)
[2020-12-26 14:46] LABS: INR 0.9 (0.9-1.1); Prothrombin Time 9.2 Seconds (9.0-12.0)
--- NOTE | 2020-12-26 15:09 | Emergency Department Note ---
History of Present Illness General Chief complaint: Ankle Pain Stated complaint: LEFT ANKLE TWO FRACTURES,REF BY MEGAN Time Seen by Provider: 12/26/20 12:52 Source: patient History of Present Illness Provider complaint: Left ankle pain Onset (ago): hour(s) Location: ankle and left Radiation: non-radiation Severity: severe Pain Consistency: + constant Maximum Pain Intensity: 10 Quality: + sharp Exacerbated By: + movement Associated symptoms: no chest pain, no cough, no fever/chills, no headaches, no nausea/vomiting, no shortness of breath and no weakness This is a 75-year-old female sent here from orthopedics at [facility] for evaluation of an ankle fracture. The patient states that at 1:30 AM this morning the patient was going to the bathroom. She had a cramp in her right calf and bent down which caused her to trip and roll her left ankle. She has 10 out of 10 pain to the left ankle. It is sharp. Is worse with movement. She denies any other associated injuries. She denies headache, neck pain, back pain or hip pain. She has no pain above the left mid calf. She went to [facility] where they did an x-ray and told her she needed to come here for reduction and possible admission. She denies any recent illness. She has had no fever, cough or cold symptoms, chest pain, shortness of breath, vomiting, diarrhea or urinary symptoms. Home Medications Medication Instructions Recorded Confirmed Type fluticasone propionate 2 spray INTRANASAL QAM 10/15/18 12/26/20 History levothyroxine 25 mcg PO .MON,TUE,WED,FRI,SAT 10/15/18 12/26/20 History levothyroxine 50 mcg PO .SUN,THUR 10/15/18 12/26/20 History potassium citrate 10 meq PO BID 10/15/18 12/26/20 History tramadol 50 mg PO Q6H PRN 10/15/18 12/26/20 History trazodone 50 mg PO HS 10/15/18 12/26/20 History prazosin 1 mg PO HS 06/17/20 12/26/20 History ropinirole 4 mg PO HS 06/17/20 12/26/20 History amoxicillin 500 mg tablet 2,000 mg PO ONCE #4 tab 09/22/20 12/26/20 Rx atovaquone 1,500 mg PO UD 12/26/20 12/26/20 History azithromycin 250 mg PO UD 12/26/20 12/26/20 History gabapentin 300 mg PO HS 12/26/20 12/26/20 History pregabalin 50 mg PO QAM 12/26/20 12/26/20 History Allergies Allergy/AdvReac Type Severity Reaction Status Date / Time Sulfa (Sulfonamide Allergy Intermediate HIVES Verified 12/26/20 13:56 Antibiotics) metoclopramide AdvReac Mild depression Verified 12/26/20 13:56 Past Med/Surg History Medical History Anemia due to chronic kidney disease Breast cancer Chronic sinusitis CKD (chronic kidney disease), stage III Depression with anxiety Gastrojejunal ulcer with perforation Hypothyroidism RLS (restless legs syndrome) Surgical History H/O Billroth II operation H/O oophorectomy H/O sinus surgery History of appendectomy History of cataract surgery History of partial mastectomy of left breast History of total right hip replacement S/P subtotal gastrectomy Family History Father Atrial fibrillation Social History Smoking Status: Never smoker Hx Alcohol Use: Yes (quit 50 years ago) Hx Substance Use: No Preferred Language: Senegalese Communication Ability: Effective 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 and A total of 10 systems reviewed and were otherwise negative Physical Exam Vital Signs Vital Signs - 24 hr 12/26/20 12:44 12/26/20 13:53 12/26/20 14:44 Temperature 36.8 C Temperature Source Temporal Artery Scan Pulse Rate 103 H Pulse Rate [Finger] 86 85 Respiratory Rate 20 18 18 Respiratory Effort / Characteristics Non-Labored Spontaneous Respiratory Depth Normal Blood Pressure 151/81 H Blood Pressure [Left Arm] 145/81 H 154/86 H Blood Pressure Mean 104 Blood Pressure Mean [Left Arm] 102 108 Blood Pressure Position Sitting Pulse Oximetry 100 99 98 Oxygen Delivery Method Room Air Room Air Room Air Sepsis Recent Fever Within 48 Hours No Sepsis New/Unexplained Change in Mental Status N/A Sepsis Action Taken by Nursing No Action Required Constitutional: Vital signs reviewed. Eyes: Pupils are equal round reactive to light. Conjunctiva are noninjected. ENT: Pharynx is clear without erythema or exudate. Mucous membranes are moist. Neck supple without meningeal signs. Respiratory: Clear to auscultation bilaterally. Breath sounds are equal bilaterally. Cardiovascular: Regular rate and rhythm. No rubs or gallops. GI: Soft, nondistended and nontender. Bowel sounds are present. Musculoskeletal: Tenderness and swelling to the bilateral malleoli of the left ankle. Ankle is wrapped in a Kingsley wrap. Normal distal dorsalis pedis pulse. Neurovascularly intact in the left foot. No knee or hip tenderness. Integumentary: No cyanosis. or jaundice. Neurological: The patient is awake and alert. No focal deficits. Psychiatric: Normal affect. Not anxious appearing. Course Administered Medications Discontinued Medications Hydromorphone HCl (Hydromorphone Inj 0.5 Mg/0.5 Ml Syr) 0.5 mg IV NOW STA Stop: 12/26/20 14:23 Last Admin: 12/26/20 14:32 Dose: 0.5 mg Documented by: [id number] Hydromorphone HCl (Hydromorphone Inj 0.5 Mg/0.5 Ml Syr) 0.5 mg IV NOW STA Stop: 12/26/20 15:04 Last Admin: 12/26/20 16:35 Dose: 0.5 mg Documented by: [id number] Morphine Sulfate (Morphine Sulfate 4 Mg/Ml 1 Ml Carp\Vial) 4 mg IV NOW STA Stop: 12/26/20 13:01 Last Admin: 12/26/20 13:19 Dose: 4 mg Documented by: [id number] Ondansetron HCl (Ondansetron Inj 2 Mg/Ml 2 Ml Vial) 4 mg IV NOW STA Stop: 12/26/20 13:01 Last Admin: 12/26/20 13:19 Dose: 4 mg Documented by: [id number] Medical Decision Making Differential Diagnosis Ankle fracture, ankle dislocation, ligament tear, trimalleolar fracture, bimalleolar fracture Medical Records Attestation: I reviewed the patient's medical records. I did perform a limited focused review of portions of the patient's old chart on the electronic medical record. The patient was admitted May of last year for COVID-19 pneumonia. Home Medications Current Medication List: was personally reviewed by me Laboratory Data Attestation: I reviewed the patient's lab results. Result diagrams: 12/26/20 13:21 12/26/20 13: Lab Results 12/26/20 12/26/20 12/26/20 Range/Units 13:21 13:21 13:21 WBC 8.64 (4.8-10.8) K/uL RBC 3.56 L (4.2-5.4) M/uL Hgb 9.2 L (12.0-16.0) g/dL Hct 29.6 L (37-47) % MCV 83.1 (80-100) fL MCH 25.8 (25-34) pg MCHC 31.1 L (32-36) g/dL RDW Std Deviation 42.2 (36.4-46.3) fL RDW Coeff of Tatiana 13.8 (11.5-14.5) % Plt Count 373 (130-400) K/uL MPV 9.2 (7.4-10.4) fL Immature Gran % (Auto) 0.1 % Neut % (Auto) 70.3 % Lymph % (Auto) 17.6 % Whitfield % (Auto) 9.1 % Eos % (Auto) 2.7 % Baso % (Auto) 0.2 % Neut # (Auto) 6.07 (1.4-6.5) K/uL Lymph # (Auto) 1.52 (1.2-3.4) K/uL Whitfield # (Auto) 0.79 H (0.11-0.59) K/uL Eos # (Auto) 0.23 (0-0.5) K/uL Baso # (Auto) 0.02 (0-0.2) K/uL Immature Gran # (Auto) 0.01 (0.00-0.02) K/uL PT (9.0-12.0) Seconds INR (0.9-1.1) APTT < 20.0 L (21.0-31.0) Seconds PTT Ratio 0.8 Sodium 139 (136-145) mmol/L Potassium 4.4 (3.5-5.1) mmol/L Chloride 106 (98-107) mmol/L Carbon Dioxide 27 (21-32) mmol/L Anion Gap 6.0 (3-11) BUN 32 H (7-18) mg/dl Creatinine 1.23 H (0.6-1.2) mg/dl Est Cr Clr Drug Dosing 37.0 ml/min Est GFR ( Amer) 49.7 ml/min Est GFR (Non-Af Amer) 42.9 ml/min BUN/Creatinine Ratio 25.7 H (10-20) Glucose 107 H (70-99) mg/dl Calcium 8.9 (8.5-10.1) mg/dl COVID-19 Eval Order SARS-CoV-2 (PCR) (Negative) 12/26/20 12/26/20 12/26/20 Range/Units 13:21 15:33 15:33 WBC (4.8-10.8) K/uL RBC (4.2-5.4) M/uL Hgb (12.0-16.0) g/dL Hct (37-47) % MCV (80-100) fL MCH (25-34) pg MCHC (32-36) g/dL RDW Std Deviation (36.4-46.3) fL RDW Coeff of Tatiana (11.5-14.5) % Plt Count (130-400) K/uL MPV (7.4-10.4) fL Immature Gran % (Auto) % Neut % (Auto) % Lymph % (Auto) % Whitfield % (Auto) % Eos % (Auto) % Baso % (Auto) % Neut # (Auto) (1.4-6.5) K/uL Lymph # (Auto) (1.2-3.4) K/uL Whitfield # (Auto) (0.11-0.59) K/uL Eos # (Auto) (0-0.5) K/uL Baso # (Auto) (0-0.2) K/uL Immature Gran # (Auto) (0.00-0.02) K/uL PT 9.2 (9.0-12.0) Seconds INR 0.9 (0.9-1.1) APTT (21.0-31.0) Seconds PTT Ratio Sodium (136-145) mmol/L Potassium (3.5-5.1) mmol/L Chloride (98-107) mmol/L Carbon Dioxide (21-32) mmol/L Anion Gap (3-11) BUN (7-18) mg/dl Creatinine (0.6-1.2) mg/dl Est Cr Clr Drug Dosing ml/min Est GFR ( Amer) ml/min Est GFR (Non-Af Amer) ml/min BUN/Creatinine Ratio (10-20) Glucose (70-99) mg/dl Calcium (8.5-10.1) mg/dl COVID-19 Eval Order Covid19 at [facility] SARS-CoV-2 (PCR) NEGATIVE (Negative) Imaging Data Radiologist's Impression: Ankle X-Ray 12/26/20 13:17 LEFT ANKLE 3 VIEWS CLINICAL HISTORY: Left ankle injury. Known fracture. FINDINGS: 3 views of the left ankle are obtained. No prior studies are available for comparison at the time of dictation. There is a comminuted, mildly disp laced, and angulated fracture through the distal shaft of the fibula. There is also a horizontally oriented fracture through the base of the medial malleolus. There is lateral displacement of the medial malleolar fragment by up to 8 mm, with lateral subluxation of the talus. The tibiotalar joint is anatomically aligned in the AP dimension. There may also be a fracture of the posterior tibial plafond, only seen on the oblique view. There is an ankle joint effusion. Significant soft tissue edema is present around ankle. There is a large dorsal calcaneal enthesophyte. IMPRESSION: Distal tibial and fibular fractures and ankle dislocation as above. Electronically signed by: Efe Abbasi M.D. 12/26/2020 1:45 PM Chest X-Ray 12/26/20 15:29 XR chest 1V portable HISTORY: Joint pain. Preop. COMPARISON: Chest 06/19/2020. FINDINGS: No pneumothorax. No pleural effusions. The heart is normal in size. There is a mildly tortuous thoracic aorta. Stable calcified granuloma within the right lower lobe. Surgical clips noted within the left breast. IMPRESSION: No acute process. ACT 112: Negative or not required by law. Electronically signed by: Bean Pond M.D. 12/26/2020 4:17 PM Ankle X-Ray 12/26/20 15:31 XR ankle LT min 3V routine CLINICAL HISTORY: post reduction COMPARISON: December 26, 2020 at 13:18 hours DISCUSSION: Redemonstration of the fibular fracture and fracture of the medial malleolus. Recently seen dislocation with an ankle joint is improved. Fractured fragments are in near anatomical alignment. Overall evaluation is significantly limited due to overlying fiberglass cast. IMPRESSION: The above. ACT 112: Negative or not required by law. The above report was generated using voice recognition software. It may contain grammatical, syntax or spelling errors. Electronically signed by: Laine Salas DO 12/26/2020 4:16 PM MDM Narrative I did evaluate the patient as noted above. IV access was established. I did treat the patient with IV morphine and Zofran. I did order and personally reviewed the images of the patient's ankle and tib-fib x-rays as described above. She appears to have a fracture dislocation of the left ankle. It appears to be a trimalleolar fracture. I did order and review the patient's blood work as noted in the electronic medical record. She has chronic anemia and chronic kidney disease with a hemoglobin 9.2 and a creatinine of 1.23. I did discuss the case with Dr. Thurston of orthopedics. He requested medicine admit the patient and he will operate on her tomorrow as she had something to drink prior to arrival. I did give the patient additional pain medication with IV Dilaudid. Orthopedics came down and splinted the patient. I did discuss the case with the continuous pillowcase cutter and the hospitalist. Impression & Plan Closed fracture dislocation of left ankle, CKD (chronic kidney disease), stage III, Anemia in chronic illness Discharge Plan Visit Data Chief Complaint: Ankle Pain Stated Complaint: LEFT ANKLE TWO FRACTURES,REF BY DOC ED Provider: Christopher Desir Discharge Problem: Closed fracture dislocation of left ankle, CKD (chronic kidney disease), stage III, Anemia in chronic illness Patient Disposition: Being Evaluated by Hospitalist Forms Stand Alone Forms: My [facility] Prescriptions Prescriptions: No Action amoxicillin 500 mg tablet 2,000 mg PO ONCE Qty: 4 RF: 3 trazodone 50 mg tablet 50 mg PO HS RF: 0 tramadol 50 mg tablet 50 mg PO Q6H PRN (Reason: Pain) RF: 0 levothyroxine 50 mcg tablet 50 mcg PO .EMILIA DORADO RF: 0 levothyroxine 50 mcg tablet 25 mcg PO .MON,TUE,WED,FRI,SAT RF: 0 potassium citrate 10 mEq (1,080 mg) Tablet Extended Release 10 meq PO BID RF: 0 fluticasone propionate 50 mcg/actuation spray,suspension 2 spray intranasal QAM RF: 0 prazosin 1 mg capsule 1 mg PO HS RF: 0 ropinirole 4 mg tablet extended release 24 hr 4 mg PO HS RF: 0 azithromycin 250 mg tablet 250 mg PO UD RF: 0 gabapentin 100 mg capsule 300 mg PO HS RF: 0 atovaquone 750 mg/5 mL suspension 1,500 mg PO UD RF: 0 pregabalin 25 mg capsule 50 mg PO QAM RF: 0 Referrals Referrals: Saritha Bishop DO [Primary Care Provider] - Discharge Problem: Closed fracture dislocation of left ankle Qualifiers: Encounter type: initial encounter Qualified Code(s): S82.892A - Other fracture of left lower leg, initial encounter for closed fracture CKD (chronic kidney disease), stage III Qualifiers: Chronic kidney disease stage 3 subtype: unspecified whether 3a or 3b Qualified Code(s): N18.30 - Chronic kidney disease, stage 3 unspecified
--- NOTE | 2020-12-26 15:28 | History & Physical Report ---
Date of Service December 26, 2020 Assessment & Plan (1) Closed fracture dislocation of left ankle: (2) Anemia due to chronic kidney disease: (3) Depression with anxiety: (4) Hypothyroidism: (5) CKD (chronic kidney disease), stage III: This is a 75yo F with a PMH of anemia, history of breast cancer, CKD III, history of partial gastrectomy, hypothyroidism and other medical problems listed below who presents after fall today with ankle pain and was found to have a trimalleolar ankle fracture with dislocation. Mechanical fall overnight L ankle XR with distal tibial and fibular fractures and ankle dislocation Reduced and casted in ED by ortho service Plan for L ankle ORIF tomorrow morning in OR Pain control, gentle fluids, pain control, ice and elevation Preop CXR without acute process, EKG pending CKD III Kidney function at baseline with Cr 1.2 (basline 1.2-1.3) Monitor with daily BMP Anemia due to chronic kidney disease Hgb stable at baseline around 9 Monitor with daily CBC Hypothyroidism Continue levothyroxine RLS Continue Mirapex, gabapentin DVT Ppx: SCD Code status: FULL PCP: Dario Dispo: Admitted to med/surg. Discharge planning ordered. Patient seen in collaboration with Dr. Santana. Please see addendum. History of Present Illness Chief Complaint: ankle pain after fall Primary Care Provider: Saritha Bishop, DO This is a 75yo F with a PMH of anemia, history of breast cancer, mood disorder, history of partial gastrectomy, hypothyroidism and other medical problems listed below who presents after fall today with ankle pain. Got up during the night around 0100 to get a glass of water tripped and fell, falling on the left side. Was unable to get up on her own and called her daughter around 6 AM. Went to [facility] urgent care orthopedic valuation was sent to ER for further evaluation. XR shows a trimalleolar ankle fracture/dislocation. Pain improved with IV pain medication in ED and is now 5/10. Denies any fever, chills, headache, lightheadedness, chest pain, palpitations, shortness of breath, nausea, vomiting, abdominal pain, dysuria, diarrhea or constipation. Patient lives alone. Prior to this was able to ambulate independently. Allergies Allergy/AdvReac Type Severity Reaction Status Date / Time Sulfa (Sulfonamide Allergy Intermediate HIVES Verified 12/26/20 13:56 Antibiotics) metoclopramide AdvReac Mild depression Verified 12/26/20 13:56 Home Medications Medication Instructions Recorded Confirmed Type fluticasone propionate 2 spray INTRANASAL QAM 10/15/18 12/26/20 History levothyroxine 25 mcg PO .MON,TUE,WED,FRI,SAT 10/15/18 12/26/20 History levothyroxine 50 mcg PO .SUN,THUR 10/15/18 12/26/20 History potassium citrate 10 meq PO BID 10/15/18 12/26/20 History tramadol 50 mg PO Q6H PRN 10/15/18 12/26/20 History trazodone 50 mg PO HS 10/15/18 12/26/20 History prazosin 1 mg PO HS 06/17/20 12/26/20 History ropinirole 4 mg PO HS 06/17/20 12/26/20 History amoxicillin 500 mg tablet 2,000 mg PO ONCE #4 tab 09/22/20 12/26/20 Rx atovaquone 1,500 mg PO UD 12/26/20 12/26/20 History azithromycin 250 mg PO UD 12/26/20 12/26/20 History gabapentin 300 mg PO HS 12/26/20 12/26/20 History pregabalin 50 mg PO QAM 12/26/20 12/26/20 History Past Med/Surg History Medical History Anemia due to chronic kidney disease Breast cancer Chronic sinusitis CKD (chronic kidney disease), stage III Depression with anxiety Gastrojejunal ulcer with perforation Hypothyroidism RLS (restless legs syndrome) Surgical History H/O Billroth II operation H/O oophorectomy H/O sinus surgery History of appendectomy History of cataract surgery History of partial mastectomy of left breast History of total right hip replacement S/P subtotal gastrectomy Family History Father Atrial fibrillation Social History Smoking Status: Never smoker Hx Alcohol Use: No Hx Substance Use: No Preferred Language: [place] Communication Ability: Effective Clinical Psychology Professor Required: No Beliefs That Will Affect Care: None marital status: / marital status details: within last 8-9 mo Current Living Situation: Alone Feels Safe at Home: Yes Safety Concerns: Feels Safe At This Time Assistive Devices: Glasses Review of Systems Review of Systems: At least ten systems reviewed and negative except as noted in the HPI. Physical Exam Physical Exam: General Appearance: vitals as above, NAD, sitting up in bed, pleasant, conversing easily Head: normocephalic, atraumatic Eyes: normal inspection, PERRL, conjunctivae normal, anicteric sclerae ENT: external ear and nose normal, oropharynx normal Neck: normal visual inspection, trachea midline, no thyromegaly Respiratory: normal respiratory effort, lungs clear to auscultation, no wheeze, rales, rhonchi. No accessory muscle use Cardiovascular: regular rate, rhythm, no murmur, normal peripheral pulses, no BLE edema. Vessels: no JVD Chest: normal inspection of chest Abdomen/GI: normal bowel sounds, soft, nontender, no hepatosplenomegaly Extremities/Musculoskeletal: +LLE in cast. NVI. No cyanosis or clubbing Neurologic: PERRL, EOMI, accommodation nl, no face palsy, no dysarthria, CN's II-XI intact bilaterally and moves all extremities Psychiatric: A+Ox3, euthymic affect Skin: no rashes, normal color, warm/dry Results & Data Results & Data ([facility]) Vital Signs (Past 12 Hours) Vital Signs Temp Pulse Pulse Resp BP BP Pulse Ox 12/26/20 14:44 85 18 154/86 H 98 12/26/20 13:53 86 18 145/81 H 99 12/26/20 12:44 36.8 C 103 H 20 151/81 H 100 Laboratory Results Short CBC 12/26/20 12/26/20 Range/Units 13:21 13:21 WBC 8.64 (4.8-10.8) K/uL Hgb 9.2 L (12.0-16.0) g/dL Hct 29.6 L (37-47) % Plt Count 373 (130-400) K/uL Creatinine 1.23 H (0.6-1.2) mg/dl BMP 12/26/20 13:21 Sodium 139 Potassium 4.4 Chloride 106 Carbon Dioxide 27 BUN 32 H Creatinine 1.23 H Glucose 107 H Calcium 8.9 Diagnostic Findings Ankle X-Ray 12/26/20 13:17 LEFT ANKLE 3 VIEWS CLINICAL HISTORY: Left ankle injury. Known fracture. FINDINGS: 3 views of the left ankle are obtained. No prior studies are available for comparison at the time of dictation. There is a comminuted, mildly displaced, and angulated fracture through the distal shaft of the fibula. There is also a horizontally oriented fracture through the base of the medial malleolus. There is lateral displacement of the medial malleolar fragment by up to 8 mm, with lateral subluxation of the talus. The tibiotalar joint is a natomically aligned in the AP dimension. There may also be a fracture of the posterior tibial plafond, only seen on the oblique view. There is an ankle joint effusion. Significant soft tissue edema is present around ankle. There is a large dorsal calcaneal enthesophyte. IMPRESSION: Distal tibial and fibular fractures and ankle dislocation as above. Electronically signed by: Efe Abbasi M.D. 12/26/2020 1:45 PM Chest X-Ray 12/26/20 15:29 XR chest 1V portable HISTORY: Joint pain. Preop. COMPARISON: Chest 06/19/2020. FINDINGS: No pneumothorax. No pleural effusions. The heart is normal in size. There is a mildly tortuous thoracic aorta. Stable calcified granuloma within the right lower lobe. Surgical clips noted within the left breast. IMPRESSION: No acute process. ACT 112: Negative or not required by law. Electronically signed by: Bean Pond M.D. 12/26/2020 4:17 PM Ankle X-Ray 12/26/20 15:31 XR ankle LT min 3V routine CLINICAL HISTORY: post reduction COMPARISON: December 26, 2020 at 13:18 hours DISCUSSION: Redemonstration of the fibular fracture and fracture of the medial malleolus. Recently seen dislocation with an ankle joint is improved. Fractured fragments are in near anatomical alignment. Overall evaluation is significantly limited due to overlying fiberglass cast. IMPRESSION: The above. ACT 112: Negative or not required by law. The above report was generated using voice recognition software. It may contain grammatical, syntax or spelling errors. 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 and oriented x3 Her admission labs, EKG and imaging studies reviewed Mechanical fall with left trimalleolar ankle fracture Ortho consulted and no current indication of proposed surgery Agree with assessment and plan as outlined above by MICHAEL Cabrera DR (1) CKD (chronic kidney disease), stage III Chronic kidney disease stage 3 subtype: unspecified whether 3a or 3b Qualified Code(s): N18.30 - Chronic kidney disease, stage 3 unspecified (2) Closed fracture dislocation of left ankle Encounter type: initial encounter Qualified Code(s): S82.892A - Other fracture of left lower leg, initial encounter for closed fracture
--- NOTE | 2020-12-26 16:02 | Orthopedic Consultation ---
Date of Service December 26, 2020 Assessment & Plan (1) Closed fracture dislocation of left ankle: She was seen by Dr. Thurston today as well. We did recommend ORIF of the ankle. This will be tomorrow morning. She will be npo after midnight. Procedure was explained with her today by Dr. Thurston and consent obtained. I did reduce her ankle and splinted it in the ER. She should keep the left foot/ankle elevated and iced. She is being admitted today by the hospitalist service. Procedure: Gentle closed reduction of the ankle was performed today. A plaster splint was applied. She tolerated the procedure well. No complications. Post reduction xray obtained. History of Present Illness Reason for Consultation: .left ankle fracture Requesting Physician: . .75 year old female who is here today due to a left ankle fracture. She apparently gets cramps at night time and got up at approx 1am to get a drink of water, and fell. She was able to crawl and waited the remainder of the night before calling her daughter for assistance around 6am. She has been to urgent care, [facility] in clinic and then referred here for orthopedic evaluation. Xrays show a trimalleolar ankle fracture/dislocation. She denies any other injury. She reports some numbness on the top of her foot. No other complaints. Prior to this injury she did ambulate independently. Allergies Allergy/AdvReac Type Severity Reaction Status Date / Time Sulfa (Sulfonamide Allergy Intermediate HIVES Verified 12/26/20 13:56 Antibiotics) metoclopramide AdvReac Mild depression Verified 12/26/20 13:56 Home Medications Medication Instructions Recorded Confirmed Type fluticasone propionate 2 spray INTRANASAL QAM 10/15/18 12/26/20 History levothyroxine 25 mcg PO .MON,TUE,WED,FRI,SAT 10/15/18 12/26/20 History levothyroxine 50 mcg PO .SUN,THUR 10/15/18 12/26/20 History potassium citrate 10 meq PO BID 10/15/18 12/26/20 History tramadol 50 mg PO Q6H PRN 10/15/18 12/26/20 History trazodone 50 mg PO HS 10/15/18 12/26/20 History prazosin 1 mg PO HS 06/17/20 12/26/20 History ropinirole 4 mg PO HS 06/17/20 12/26/20 History amoxicillin 500 mg tablet 2,000 mg PO ONCE #4 tab 09/22/20 12/26/20 Rx atovaquone 1,500 mg PO UD 12/26/20 12/26/20 History azithromycin 250 mg PO UD 12/26/20 12/26/20 History gabapentin 300 mg PO HS 12/26/20 12/26/20 History pregabalin 50 mg PO QAM 12/26/20 12/26/20 History Past Med/Surg History Medical History Anemia due to chronic kidney disease Breast cancer Chronic sinusitis CKD (chronic kidney disease), stage III Depression with anxiety Gastrojejunal ulcer with perforation Hypothyroidism RLS (restless legs syndrome) Surgical History H/O Billroth II operation H/O oophorectomy H/O sinus surgery History of appendectomy History of cataract surgery History of partial mastectomy of left breast History of total right hip replacement S/P subtotal gastrectomy Family History Father Atrial fibrillation Social History Smoking Status: Never smoker Hx Alcohol Use: Yes (quit 50 years ago) Hx Substance Use: No Preferred Language: Citizen Of [place] Communication Ability: Effective 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 Physical Exam .Well developed well nourished female in NAD. Left leg: obvious deformity of the ankle. She is tender to palpation medial and laterally. Skin is intact but she has moderate soft tissue swelling. She can move her toes. Sensation intact to touch. Brisk refill. Results & Data Results & Data Laboratory Results . Diagnostic Findings .xrays show a trimalleolar ankle fx/dislocation PG Care Time/CCT Total # of Minutes Spent Total Time Spent with Patient: Total time spent is greater than 50% in coordination of care (as documented) at patient's floor/unit and/or counseling patient: Coding Level of Care Code 91536 Inpt Consult Level 4 Diagnoses Closed fracture dislocation of left ankle S82.892A Encounter type: initial encounter (1) Closed fracture dislocation of left ankle Encounter type: initial encounter Qualified Code(s): S82.892A - Other fracture of left lower leg, initial encounter for closed fracture
--- NOTE | 2020-12-26 16:17 | XRay Report ---
XR ankle LT min 3V routine CLINICAL HISTORY: post reduction COMPARISON: December 26, 2020 at 13:18 hours DISCUSSION: Redemonstration of the fibular fracture and fracture of the medial malleolus. Recently seen dislocati on with an ankle joint is improved. Fractured fragments are in near anatomical alignment. Overall evaluation is significantly limited due to overlying fiberglass cast. IMPRESSION: The above. ACT 112: Negative or not required by law. The above report was generated using voice recognition software. It may contain grammatical, syntax o r spelling errors. Electronically signed by: Laine Salas DO 12/26/2020 4:16 PM
--- NOTE | 2020-12-26 16:18 | XRay Report ---
XR chest 1V portable HISTORY: Joint pain. Preop. COMPARISON: Chest 06/19/2020. FINDINGS: No pneumothorax. No pleural effusions. The heart is normal in size. There is a mildly tortu ous thoracic aorta. Stable calcified granuloma within the right lower lobe. Surgical clips noted with in the left breast. IMPRESSION: No acute process. ACT 112: Negative or not required by law. Electronically signed by: Bean Pond M.D. 12/26/2020 4:17 PM
[2020-12-26] MEDS ORDERED: POLYETHYLENE (MIRALAX) 17 GM PACK PO PRN (17:44)
[2020-12-26] MEDS ORDERED: ONDANSETRON INJ 2 MG/ML 2 ML VIAL IV PRN (17:44)
[2020-12-26] MEDS ORDERED: ACETAMINOPHEN 500 MG TAB PO STA (18:02)
[2020-12-26] MEDS: HYDROmorphone INJ 0.5 MG/0.5 ML SYR IV PRN (18:33)
[2020-12-26] MEDS: LEVOTHYROXINE SODIUM 25 MCG TABLET PO SCH (19:39)
[2020-12-26] MEDS: POTASSIUM CITRATE 10 MEQ TAB PO SCH (20:23)
[2020-12-26] MEDS: PRAZOSIN HCL 1 MG CAP PO SCH (20:23)
[2020-12-26] MEDS: rOPINIRole HCL 1 MG TABLET PO SCH (20:23)
[2020-12-26] MEDS: GABAPENTIN 300 MG CAP PO SCH (20:23)
[2020-12-26] MEDS: traZODone HCL 50 MG TAB PO SCH (21:14)
[2020-12-26] MEDS ORDERED: ceFAZolin 1000MG 1,000 MG/7.5 ML SYR IV ONE (21:15)
--- NOTE | 2020-12-26 22:34 | Anesthesiology Consultation ---
Date of Service December 26, 2020 Assessment & Plan Chart Review Chart Review: Acceptable Risk for Surgery Consults Requested none History Surgery Operation Date: 12/27/20 07:30 Proposed Procedures p Left Ankle Trimalleolar Fracture Open Reduction Internal Fixation - Hector Thurston MD Height/Weight Height: 5 ft 6 in Weight: 63.8 kg Allergies Allergy/AdvReac Type Severity Reaction Status Date / Time Sulfa (Sulfonamide Allergy Intermediate HIVES Verified 12/26/20 13:56 Antibiotics) metoclopramide AdvReac Mild depression Verified 12/26/20 13:56 Medications Home Medications Medication Instructions Recorded Confirmed Last Taken fluticasone propionate 2 spray INTRANASAL QAM 10/15/18 12/26/20 12/25/20 levothyroxine 25 mcg PO .MON,TUE,WED,FRI,SAT 10/15/18 12/26/20 12/24/20 levothyroxine 50 mcg PO .EMILIA DORADO 10/15/18 12/26/20 12/25/20 potassium citrate 10 meq PO BID 10/15/18 12/26/20 12/25/20 tramadol 50 mg PO Q6H PRN 10/15/18 12/26/20 12/25/20 trazodone 50 mg PO HS 10/15/18 12/26/20 12/25/20 prazosin 1 mg PO HS 06/17/20 12/26/20 12/25/20 ropinirole 4 mg PO HS 06/17/20 12/26/20 12/25/20 amoxicillin 500 mg tablet 2,000 mg PO ONCE #4 tab 09/22/20 12/26/20 Unknown atovaquone 1,500 mg PO UD 12/26/20 12/26/20 12/24/20 10 ml azithromycin 250 mg PO UD 12/26/20 12/26/20 12/24/20 gabapentin 300 mg PO HS 12/26/20 12/26/20 12/25/20 pregabalin 50 mg PO QAM 12/26/20 12/26/20 12/25/20 25 mg Active Medications Generic Name Dose Route Start Last Admin Trade Name Freq PRN Reason Stop Dose Admin Gabapentin 300 mg 12/26/20 21:00 12/26/20 20:23 Gabapentin 300 Mg Cap PO 01/25/21 20:59 300 mg HS MARTHA Administration Hydromorphone HCl 0.5 mg 12/26/20 17:44 12/26/20 18:33 Hydromorphone Inj 0.5 Mg/0.5 Ml Syr IV 01/09/21 17:43 0.5 mg Q4H PRN Administration Pain Levothyroxine Sodium 25 mcg 12/26/20 18:30 12/26/20 19:39 Levothyroxine Sodium 25 Mcg Tablet PO 01/25/21 18:29 25 mcg [id number] MARTHA Administration Potassium Citrate 10 meq 12/26/20 21:00 12/26/20 20:23 Potassium Citrate 10 Meq Tab PO 01/25/21 20:59 10 meq BID MARTHA Administration Prazosin HCl 1 mg 12/26/20 21:00 12/26/20 20:23 Prazosin Hcl 1 Mg Cap PO 01/25/21 20:59 1 mg HS MARTHA Administration Ropinirole HCl 4 mg 12/26/20 21:00 12/26/20 20:23 Ropinirole Hcl 1 Mg Tablet PO 01/25/21 20:59 4 mg HS MARTHA Administration Trazodone HCl 50 mg 12/26/20 21:00 12/26/20 21:14 Trazodone Hcl 50 Mg Tab PO 01/25/21 20:59 50 mg HS MARTHA Administration Past Medical History Medical History Anemia due to chronic kidney disease Breast cancer Chronic sinusitis CKD (chronic kidney disease), stage III Depression with anxiety Gastrojejunal ulcer with perforation Hypothyroidism RLS (restless legs syndrome) Past Family History Family History Father Atrial fibrillation Past Surgical History Surgical History H/O Billroth II operation H/O oophorectomy H/O sinus surgery History of appendectomy History of cataract surgery History of partial mastectomy of left breast History of total right hip replacement S/P subtotal gastrectomy Social History Smoking Status: Never smoker Hx Alcohol Use: No Hx Substance Use: No substance use type: does not use Physical Exam Vital Signs Last Vital Signs Temp 37.0 C 12/26/20 18:32 Pulse 82 12/26/20 18:32 Resp 16 12/26/20 18:32 BP 116/65 12/26/20 18:32 Pulse Ox 98 12/26/20 18:32 Testing Laboratory Results 12/26/20 13:21 12/26/20 13:21 PT 9.2 Seconds (9.0-12.0) 12/26/20 13:21 INR 0.9 (0.9-1.1) 12/26/20 13:21 APTT < 20.0 Seconds (21.0-31.0) L 12/26/20 13:21
[2020-12-27] MEDS: HYDROmorphone INJ 0.5 MG/0.5 ML SYR IV PRN ×4 (03:01→18:37)
[2020-12-27] MEDS: ACETAMINOPHEN 500 MG TAB PO SCH ×3 (05:42→22:14)
[2020-12-27] MEDS: LEVOTHYROXINE SODIUM 25 MCG TABLET PO SCH (05:42)
[2020-12-27] MEDS ORDERED: ceFAZolin 1000MG 1,000 MG/7.5 ML SYR IV SCH (06:00)
[2020-12-27 06:55] LABS: Hematocrit (blood only) 27.5 % (37-47); Hemoglobin 8.4 g/dL (12.0-16.0); Mean Corpuscular Hemoglobin 25.5 pg (25-34); Mean Corpuscular Hgb Conc 30.5 g/dL (32-36); Mean Corpuscular Volume 83.6 fL (80-100); Mean Platelet Volume 9.6 fL (7.4-10.4); Platelet Count 342 K/uL (130-400); RDW Standard Deviation 42.9 fL (36.4-46.3); Red Blood Count 3.29 M/uL (4.2-5.4)
[2020-12-27] MEDS ORDERED: LIDOCAINE 2% 2 ML VIAL/AMP(20MG/ML) INFIL ONE (07:00)
[2020-12-27] MEDS ORDERED: PROPOFOL IV EMULSION 10 MG/ML 20 ML VIAL IV ONE (07:00)
[2020-12-27] MEDS ORDERED: fentaNYL citrate 100 MCG/2 ML VIAL ONE (07:00)
[2020-12-27] MEDS ORDERED: DEXAMETHASONE SOD INJ 4 MG/ML VIAL ONE (07:00)
[2020-12-27] MEDS ORDERED: ONDANSETRON INJ 2 MG/ML 2 ML VIAL ONE (07:00)
[2020-12-27] MEDS ORDERED: MIDAZOLAM HCL 1 MG/ML 2ML VIAL ONE ×2 (07:01)
--- NOTE | 2020-12-27 07:18 | History & Physical Bridge Note ---
Date of Service December 27, 2020 History & Physical Bridge Note I have examined the patient, reviewed the History & Physical and in the interval since the performance of the History & Physical I have noted the following changes of clinical significance: no changes noted
[2020-12-27] MEDS ORDERED: ONDANSETRON INJ 2 MG/ML 2 ML VIAL IV PRN ×2 (07:19→10:25)
[2020-12-27] MEDS ORDERED: ePHEDrine sulfate 50 MG/ML AMP IV PRN (07:19)
[2020-12-27] MEDS ORDERED: fentaNYL citrate 100 MCG/2 ML VIAL IV PRN (07:19)
[2020-12-27] MEDS ORDERED: ATROPINE SULFATE 0.1 MG/ML 10ML SYR IV PRN (07:19)
[2020-12-27 07:23] LABS: BUN Creatinine Ratio 19.9 (10-20); Calcium 8.2 mg/dl (8.5-10.1); Creatinine Clr Calc Pharmacy 36.7 ml/min; Est GFR (African American) 49.2 ml/min; Est GFR (Non-African American) 42.5 ml/min; Potassium 4.2 mmol/L (3.5-5.1)
[2020-12-27] MEDS ORDERED: BUPIVACAINE/EPINEPHRINE 0.5% MPF 1:200,000 30 ML VIAL ONE (08:24)
--- NOTE | 2020-12-27 09:19 | Fluoroscopy Report ---
FL ankle LT min 3V RTN CLINICAL HISTORY: ORIF LT ANKLE COMPARISON STUDY: None. FLUOROSCOPY TIME: 10 seconds. FINDINGS: 3 fluoroscopic spot images of the left ankle demonstrates internal fixation of a bimalleola r fracture with cortical plates and screws. Hardware appears intact. Alignment is near-anatomic. IMPRESSION: Fluoroscopy provided for internal fixation of a left ankle fracture. ACT 112: Negative or not required by law. Electronically signed by: Bean Pond M.D. 12/27/2020 9:18 AM
--- NOTE | 2020-12-27 09:51 | Operative Report ---
Post Operative Report Pre & Post Diagnosis Operation Date: 12/27/20 07:30 Pre-Op Diagnosis: closed left bimalleolar ankle fracture Post-Op Diagnosis: closed left bimalleolar ankle fracture I identified the patient and participated in the time-out.: Yes Procedure Operation Date: 12/27/20 07:30 Actual Procedures p Left Ankle Trimalleolar Fracture Open Reduction Internal Fixation(Left) - Hector Thurston MD Surgeon Hector Thurston MD Molder Helper MICHAEL Piper Estimated Blood Loss 10 Findings Consistent with Post-Op Diagnosis Specimens None Anesthesia Type General Complications none Disposition Accompanied Patient To Recovery: No Disposition: Recovery Room Indications Patient is 75-year-old female sustained a fall on the overnight 2 evenings ago. She was getting up to get something to drink and stumbled and broke her ankle. She called out in the morning and went to the ER and x-rays were a Biomet ankle fracture with subluxation. Patient was admitted to hospital, medically optimized, indicated for surgical treatment. Description of Procedure Operative implants consist of: Medial sided implants consist of: 1. 4.0 partially-threaded long threaded cancellous screws x2 with 2 washers. Lateral side implants consisted of: 1. Synthes 7 hole 2.7/3.5 left distal fibular locking plate. 2. 2.7 mm locking screws x5. 3. 3.5 fully threaded cortical screws x3. 4. 4.0 cancellous screws x2. Patient was taken to the operating, identified, placed on the operating table supine position but all contractors were properly padded IV antibiotics tried by the anesthesia team. A general anesthetic was employed by anesthesia team. A left thigh turn was then placed. Left lower extremity was then scrubbed with Hibiclens and then prepped with ChloraPrep and draped in usual sterile fashion. The left lower extremity was then elevated exsanguinated with use of an Esmarch and turns placed at 300 mmHg. Attention was first drawn the medial side. An oblique incision was. Over the medial malleolus. Sharp dissection carried through the subcutaneous tissue directly down the fracture site. Fracture was exposed. Periosteum was pulled out of the fracture site. The medial malleolus was reduced and held with a reduction clamp. 2 wires for the cannulated screws that were placed across the fracture. Position was verified and then to partially-threaded cancellous screws with washers were placed over the wires. Despite excellent and anatomic fixation medially. Attention drawn laterally. A direct lateral approach to the fibula was then performed to a longitudinal incision. Sharp dissection Through subcutaneous tissue directly down to the fibula. The fibula was exposed. The fracture was fairly comminuted. She was fairly osteoporotic as well. I pulled the fracture out to length and held with a K wire attached to the tibia. I tried to place an interfrag screws but the fracture was too comminuted to get any real good purchase. Therefore I band and this process. I then contoured a left distal fibular locking plate to the lateral aspect of the fibula and under Noman toward it slightly to make sure that to push the bone medially. It was fixed proximally with a single 3.5 cortical screw and distally with 4.0 fully threaded cancellous screw to snug the plate down to the bone. X-rays brought in. The plate was appropriately aligned. The fracture was anatomically aligned. I then placed additional locking screws distally and 3.5 cortical screws proximally. Some final x-rays were obtained. I did stress the ankle and there is no gapping at all the syndesmosis. Therefore we did not place a syndesmosis screw. Some final x-rays were obtained. The wound was then irrigated with copious acid normal saline. We did inject locally with 30 cc of half percent Marcaine with epinephrine. The periosteum over the plate laterally was then closed with 2-0 Vicryl suture in a [id number] fashion but the tourniquet was then let down for turn time 65 minutes. Hemostasis assured use electrocautery to the subcutaneous tissues of both wounds were then closed with 2-0 Vicryl suture in a buried interrupted fashion skin was closed with 3-0 nylon sutures in a simple fashion. Leg was then cleaned and dried a sterile dressing both Xeroform, 4 x 4's, sterile cast padding and a well-padded posterior and stirrup splint were applied. Patient then brought out of general incision transferred to the recovery room in stable condition. Patient tolerated procedure well and there were no complications. Toñito Piper, my physician podiatric assistant, was present for the entire procedure. His assistance was required for proper patient positioning, prepping and draping, surgical exposure, retraction, placement of the hardware, closure of the wound, placement of the sterile splint. I attest to the content of the Intraoperative Record and any orders documented therein. Any exceptions are noted below.
--- NOTE | 2020-12-27 10:13 | Anesthesiology Progress Note ---
Date of Service December 27, 2020 Anesthesia Post Procedure Vital Signs Vital Signs: Temp Pulse Pulse Pulse Resp BP BP 12/27/20 10:04 99 H 16 132/64 12/27/20 09:55 101 H 16 131/58 L 12/27/20 09:47 97.9 F 94 H 16 105/67 12/26/20 22:41 97.9 F 96 H 17 99/60 L 12/26/20 18:32 98.6 F 82 16 116/65 12/26/20 18:03 98.6 F 82 16 116/65 12/26/20 14:44 85 18 154/86 H 12/26/20 13:53 86 18 145/81 H 12/26/20 12:44 98.2 F 103 H 20 151/81 H Pulse Ox 12/27/20 10:04 99 12/27/20 09:55 99 12/27/20 09:47 99 12/26/20 22:41 93 12/26/20 18:32 98 12/26/20 18:03 98 12/26/20 14:44 98 12/26/20 13:53 99 12/26/20 12:44 100 Pain Intensity Left Ankle: Pain Intensity: 6 Transfer of Care Handoff Completed per policy Notes Mental Status: alert / awake / arousable and participated in evaluation Patient Amnestic to Procedure: Yes Nausea / Vomiting: adequately controlled Pain: adequately controlled Airway Patency, RR, SpO2: stable & adequate BP & HR: stable & adequate Hydration State: stable & adequate Anesthetic Complications: no major complications apparent and Pt Satisfied with anesthetic care
[2020-12-27] MEDS ORDERED: bisacodyL 10 MG SUPP PR PRN (10:25)
[2020-12-27] MEDS ORDERED: MAGNESIUM HYDROXIDE SUSP 30 ML UDC PO PRN (10:25)
[2020-12-27] MEDS ORDERED: SODIUM CHLORIDE 0.9% 1000ML 1,000 ML IV SCH (10:25)
[2020-12-27] MEDS ORDERED: NALOXONE HCL 0.4 MG/1 ML VIAL/CARP IV PRN (10:25)
[2020-12-27] MEDS ORDERED: METOCLOPRAMIDE HCL INJ 5 MG/ML 2 ML VIAL IV PRN (10:25)
[2020-12-27] MEDS ORDERED: ALUMINUM/MAGNESIUM SUSP 30 ML UDC PO PRN (10:25)
[2020-12-27] MEDS: POTASSIUM CITRATE 10 MEQ TAB PO SCH ×2 (11:23→19:50)
[2020-12-27] MEDS: FLUTICASONE PROPIONATE NA SPR 16 GM BTL NAE SCH (11:23)
[2020-12-27] MEDS: KETOROLAC TROMETHAMINE 15 MG/ML VIAL IV SCH ×3 (13:00→23:53)
[2020-12-27] MEDS ORDERED: ACETAMINOPHEN 500 MG TAB PO SCH (14:00)
[2020-12-27] MEDS: traMADol HCL 50 MG TABLET PO PRN ×2 (15:27→21:08)
[2020-12-27] MEDS: ceFAZolin 1000MG 1,000 MG/7.5 ML SYR IV SCH ×2 (15:28→23:54)
--- NOTE | 2020-12-27 17:20 | Hospitalist Progress Note ---
Date of Service December 27, 2020 Assessment & Plan (1) Closed fracture dislocation of left ankle: (2) Anemia due to chronic kidney disease: (3) Depression with anxiety: (4) Hypothyroidism: (5) CKD (chronic kidney disease), stage III: This is a 75yo F with a PMH of anemia, history of breast cancer, CKD III, history of partial gastrectomy, hypothyroidism and other medical problems listed below who presents after fall today with ankle pain and was found to have a trimalleolar ankle fracture with dislocation. Mechanical fall overnight L ankle XR with distal tibial and fibular fractures and ankle dislocation S/P day #0 Left Ankle Trimalleolar Fracture Open Reduction Internal Fixation(Left) by Dr. Thurston No postop complication Continue incentive spirometry Pain control Continue monitor H/H and transfuse iif needed PT/OT as per ortho CKD III Kidney function at baseline with Cr 1.2 (baseline 1.2-1.3) Continue monitor BMP Anemia due to chronic kidney disease Hgb stable at baseline around 9 Hbg 8.4 today Continue monitor CBC Hypothyroidism Continue levothyroxine RLS Continue Mirapex, gabapentin DVT Ppx: SCD Code status: FULL PCP: Dario Disposition Will discharge once stable from ortho standpoint Admission and Anticipated Discharge Date Admission Date: December 26, 2020 Subjective Pt was seen and examined for post op follow up for L ankle fracture Lying in bed with no distress eating her lunch P said that he is not having a pain right now She had surgery done this morning for the ankle fracture Denies any chest pain, palpitation, dizziness and SOB Review of Systems Review of Systems: All systems reviewed & are unremarkable except as noted in Subjective Physical Exam Physical Exam: General- No acute distress Head- atraumatic Eyes- PERRL, EOMI, ENT- oropharynx clear Neck- supple, no JVD Lungs- clear to auscultation Heart- regular rhythm; no murmur Abdomen- normal bowel sounds, soft, nontender Extremities- no calf tenderness, s/p left ankle surgery, able to feel and wiggle the toes in left foot , + splint on Left foot Neuro- alert, oriented x 3; PERRL, EOMI; no facial palsy; no dysarthria Skin- warm & dry Results & Data Results & Data ([facility]) Vital Signs (Past 12 Hours) Vital Signs Temp Pulse Pulse Resp BP Pulse Ox 12/27/20 16:04 36.8 C 107 H 18 153/78 H 95 12/27/20 13:36 36.9 C 119 H 18 121/54 L 98 12/27/20 12:48 37.1 C 115 H 18 136/75 98 12/27/20 11:32 36.5 C 102 H 16 115/67 100 12/27/20 11:01 36.6 C 104 H 16 120/67 100 12/27/20 10:15 36.6 C 99 H 16 137/81 99 12/27/20 10:05 99 H 16 132/64 99 12/27/20 09:55 101 H 16 131/58 L 99 12/27/20 09:47 36.6 C 94 H 16 105/67 99 (1) CKD (chronic kidney disease), stage III Chronic kidney disease stage 3 subtype: unspecified whether 3a or 3b Qualified Code(s): N18.30 - Chronic kidney disease, stage 3 unspecified (2) Closed fracture dislocation of left ankle Encounter type: initial encounter Qualified Code(s): S82.892A - Other fracture of left lower leg, initial encounter for closed fracture
[2020-12-27] MEDS: PRAZOSIN HCL 1 MG CAP PO SCH (19:50)
[2020-12-27] MEDS: DOCUSATE SODIUM 100 MG CAP PO SCH (19:50)
[2020-12-27] MEDS: ASPIRIN 81 MG ECTAB PO SCH (19:50)
[2020-12-27] MEDS: GABAPENTIN 300 MG CAP PO SCH (19:50)
[2020-12-27] MEDS: rOPINIRole HCL 1 MG TABLET PO SCH (19:50)
[2020-12-27] MEDS ORDERED: SENNA 8.6 MG TAB PO SCH (21:00)
[2020-12-27] MEDS ORDERED: PROMETHAZINE HCL 12.5 MG in SODIUM CHLORIDE 0.9% 50 ML IV PRN (21:09)
[2020-12-27] MEDS: traZODone HCL 50 MG TAB PO SCH (22:15)
[2020-12-28] MEDS: traMADol HCL 50 MG TABLET PO PRN ×2 (03:31→10:51)
[2020-12-28] MEDS: ACETAMINOPHEN 500 MG TAB PO SCH (05:22)
[2020-12-28] MEDS: KETOROLAC TROMETHAMINE 15 MG/ML VIAL IV SCH (05:22)
[2020-12-28] MEDS ORDERED: LEVOTHYROXINE SODIUM 50 MCG TABLET PO SCH (06:30)
[2020-12-28 06:49] LABS: Hematocrit (blood only) 23.5 % (37-47); Hemoglobin 7.4 g/dL (12.0-16.0); Mean Corpuscular Hgb Conc 31.5 g/dL (32-36); Mean Corpuscular Volume 82.5 fL (80-100); Mean Platelet Volume 9.1 fL (7.4-10.4); Platelet Count 276 K/uL (130-400); RDW Coefficient of Variation 14.1 % (11.5-14.5); RDW Standard Deviation 42.7 fL (36.4-46.3); Red Blood Count 2.85 M/uL (4.2-5.4); White Blood Count 6.23 K/uL (4.8-10.8)
[2020-12-28 07:18] LABS: BUN Creatinine Ratio 21.8 (10-20); Calcium 7.8 mg/dl (8.5-10.1); Creatinine Clr Calc Pharmacy 36.1 ml/min; Est GFR (African American) 48.3 ml/min; Est GFR (Non-African American) 41.6 ml/min; Potassium 4.3 mmol/L (3.5-5.1)
--- NOTE | 2020-12-28 08:55 | Progress Notes ---
DATE: 12/28/2020 SUBJECTIVE: A 75-year-old white female postoperative day 1 from ORIF of a left ankle fracture. She is doing pretty well. Pain has improved. No new complaints. No chest pain or shortness of breath. Not feeling dizzy or lightheaded. OBJECTIVE: VITAL SIGNS: Temperature 36.5. Vital signs stable. GENERAL: Shows a pleasant elderly female. She is lying in bed, looks pretty comfortable. EXTREMITIES: Examination of the left leg reveals the dressing to be clean, dry and intact. No drainage. Mild toe swelling. She can dorsiflex and plantarflex her toes appropriately. LABORATORY DATA: Hemoglobin 7.4. Hematocrit 23.5. Electrolytes are stable. ASSESSMENT: A 75-year-old white female postoperative day 1 from ORIF of left ankle fracture, doing pretty well. She is anemic, but chronically anemic and asymptomatic. No significant blood loss. Mostly likely some degree of hemodilution. She does have some baseline renal insufficiency, which is stable. PLAN: 1. DVT prophylaxis including thigh-high TEDs, SCDs, and aspirin twice a day. 2. PT/OT. She is nonweightbearing on the left leg. 3. Pain control, doing okay with current pain regimen. 4. Disposition: Plan to discharge to home and she is going to go stay with her daughter after therapy this morning.
[2020-12-28] MEDS ORDERED: MULTIVITAMIN TAB PO SCH (09:00)
[2020-12-28] MEDS: DOCUSATE SODIUM 100 MG CAP PO SCH (10:02)
[2020-12-28] MEDS: POTASSIUM CITRATE 10 MEQ TAB PO SCH (10:02)
[2020-12-28] MEDS: ASPIRIN 81 MG ECTAB PO SCH (10:02)
[2020-12-28] MEDS: FLUTICASONE PROPIONATE NA SPR 16 GM BTL NAE SCH (10:03)
--- NOTE | 2020-12-29 07:32 | Communication Note ---
Date of Service: December 28, 2020 Pt was already discharged by orthopedic when I went to evaluate her. Will schedule follow up with PCP within 1 week. MD Sandy
[2020-12-29] MEDS ORDERED: ATOVAQUONE 750 MG/5 ML UDC PO SCH (09:00)
--- NOTE | 2020-12-31 06:35 | Discharge Summary ---
Date of Service December 31, 2020 Admission HPI Per Admitting Provider Discharge Data Consultations 12/26/20 15:03 ED Decision to Admit Stat 12/26/20 17:44 Consult Orthopedic Surgery Routine Procedures Performed Operation Date: 12/27/20 07:30 Actual Procedures p Left Ankle Trimalleolar Fracture Open Reduction Internal Fixation(Left) - Hector Thurston MD Hospital Course (1) Closed fracture dislocation of left ankle: This patient is a 75 year old admitted on 12/26/20 with a left ankle fracture/dislocation. She underwent closed reduction and splinting in the ER and was admitted by the hospitalist service. On 12/27/20 she underwent ORIF of the ankle fracture. She tolerated the procedure well and there were no complications. Transferred to the PACU post op and later to the orthopedic floor for further care. She was given ancef for antibiotic prophylaxis. She was also given FERNANDO stockings, SCDs, and aspirin for DVT prophylaxis. Hemoglobin, hematocrit, and vital signs were monitored during her hospital stay and remained stable. She did have some anemia, but had a history of chronic anemia and did not require any blood transfusions. There were no complications during their hospital stay. By post op day #1 the patient was tolerating a regular diet, pain was reasonably controlled with oral pain medicine, and she was participating in physical therapy. On post op day #1 the patient was discharged home. She was given printe d discharge instructions including prescriptions for extra strength tylenol, aspirin, and tramadol. She is nonweightbearing to the left lower leg. Continue FERNANDO stockings. Follow up approximately 2 weeks post op or sooner if there are problems or concerns. Coding Level of Care Code None Diagnoses Closed fracture dislocation of left ankle S82.892A Encounter type: initial encounter
== END 2020-12-28 11:54 | disposition home or self-care (01) | DRG 494 ==
LOC: ED 12:39 → 3N 15:33 → SUATTDRO 15:33 → 3N 17:22

== ENCOUNTER 2021-02-11 10:01 | Inpatient (IN) ==
[2021-02-11] MEDS ORDERED: SODIUM CHLORIDE 0.9% 250 ML IV PRN ×3 (10:33→23:27)
[2021-02-11 11:06] LABS: INR 0.9 (0.9-1.1); Partial Thromboplastin Ratio 0.8; Partial Thromboplastin Time 20.9 Seconds (21.0-31.0); Prothrombin Time 9.5 Seconds (9.0-12.0)
[2021-02-11 11:14] LABS: Albumin Level 3.1 gm/dl (3.4-5.0); Potassium 4.1 mmol/L (3.5-5.1)
[2021-02-11 11:21] LABS: Hematocrit (blood only) 21.4 % (37-47); Hemoglobin 6.3 g/dL (12.0-16.0); Mean Corpuscular Hemoglobin 24.3 pg (25-34); Mean Corpuscular Hgb Conc 29.4 g/dL (32-36); Mean Corpuscular Volume 82.6 fL (80-100); Mean Platelet Volume 9.2 fL (7.4-10.4); Platelet Count 382 K/uL (130-400); RDW Coefficient of Variation 17.3 % (11.5-14.5); RDW Standard Deviation 51.8 fL (36.4-46.3); Red Blood Count 2.59 M/uL (4.2-5.4); White Blood Count 4.59 K/uL (4.8-10.8)
[2021-02-11 11:30] LABS: Basophils # (auto) 0.02 K/uL (0-0.2); Basophils % (auto) 0.4 %; Eosinophils # (auto) 0.44 K/uL (0-0.5); Eosinophils % (auto) 9.6 %; Lymphocytes # (auto) 1.24 K/uL (1.2-3.4); Microcytosis Present; Monocytes % (auto) 6.5 %; Neutrophils # (auto) 2.59 K/uL (1.4-6.5); Neutrophils % (auto) 56.5 %
[2021-02-11 11:35] LABS: BUN Creatinine Ratio 18.1 (10-20); Calcium 8.1 mg/dl (8.5-10.1); Creatinine Clr Calc Pharmacy 40.6 ml/min; Est GFR (African American) 55.6 ml/min
[2021-02-11 11:38] LABS: Albumin Globulin Ratio 1.1 (0.9-2); Bilirubin,Total 0.2 mg/dl (0.2-1); Globulin 2.8 gm/dl (2.5-4.0); Total Protein 5.9 gm/dl (6.4-8.2)
--- NOTE | 2021-02-11 11:56 | Emergency Department Note ---
History of Present Illness General Chief complaint: Abnormal Labs/Diagnostic Testing Time Seen by Provider: 02/11/21 10:26 History of Present Illness Is a 75-year-old female who presents to the ED with a chief complaint of a low blood count. The patient states that she was about to have a colonoscopy and EGD this morning when anesthesia said they would not do the procedure because her hemoglobin was low. They sent her to the emergency department for evaluation. The patient denies any specific complaints. No chest pains or shortness of breath. No fevers or recent illness. No exertional symptoms. No nausea or vomiting. Home Medications Medication Instructions Recorded Confirmed Type fluticasone propionate 50 2 spray INTRANASAL QAM 10/15/18 02/11/21 History mcg/actuation nasal spray,suspension levothyroxine 50 mcg tablet 25 mcg PO .MON,TUE,WED,TUE,SAT 10/15/18 02/11/21 History levothyroxine 50 mcg tablet 50 mcg PO .SUN,THUR 10/15/18 02/11/21 History potassium citrate 10 mEq (1,080 10 meq PO BID 10/15/18 02/11/21 History mg) tablet,extended release trazodone 50 mg tablet 50 mg PO HS 10/15/18 02/11/21 History prazosin 1 mg capsule 1 mg PO HS 06/17/20 02/11/21 History ropinirole 4 mg tablet,extended 4 mg PO HS 06/17/20 02/11/21 History release 24 hr amoxicillin 500 mg tablet 2,000 mg PO ONCE #4 tab 09/22/20 02/11/21 Rx atovaquone 750 mg/5 mL oral 1,500 mg PO UD 12/26/20 02/11/21 History suspension azithromycin 250 mg tablet 250 mg PO UD 12/26/20 02/11/21 History pregabalin 25 mg capsule 50 mg PO QAM 12/26/20 02/11/21 History tramadol 50 mg tablet 50 mg PO Q4H PRN #40 tab 12/28/20 02/11/21 Rx Wheelchair (Manual) #1 ea 01/01/21 02/11/21 Rx Allergies Allergy/AdvReac Type Severity Reaction Status Date / Time Sulfa (Sulfonamide Allergy Intermediate HIVES Verified 02/11/21 10:39 Antibiotics) metoclopramide AdvReac Intermediate depression Verified 02/11/21 10:39 Past Med/Surg History Medical History Anemia due to chronic kidney disease Arthritis CKD (chronic kidney disease), stage III History of COVID-12 JUNE 2020 (HOSPITALIZED AT [facility]) History of depression History of TMJ disorder Hx of gastric ulcer RESULTING IN GASTRECTOMY Hx of migraines Hx of sleep apnea RESOLVED 2007 HX: breast cancer Hypothyroidism Lyme disease Macular degeneration Polycystic ovarian disease RLS (restless legs syndrome) Spinal stenosis Surgical History H/O Billroth II operation H/O bone marrow transplant 1993 H/O oophorectomy H/O sinus surgery History of ankle surgery LEFT (12/28/20) History of appendectomy History of cataract surgery RT/LEFT History of colonoscopy History of esophagogastroduodenoscopy (EGD) History of tonsillectomy and adenoidectomy History of total right hip replacement Hx of lumpectomy LEFT S/P subtotal gastrectomy D/T GASTRIC ULCERS Family History Father Atrial fibrillation Other No family history of adverse response to anesthesia Social History Smoking Status: Never smoker Second Hand Exposure: Yes (IN THE PAST); Hx Alcohol Use: No Hx Substance Use: No Preferred Language: Swedish Communication Ability: Effective 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 Beliefs That Will Affect Care: None marital status: / marital status details: within last 8-9 mo Current Living Situation: Alone Feels Safe at Home: Yes Assistive Devices: Walker Review of Systems A total of 10 systems reviewed and were otherwise negative Physical Exam Vital Signs Vital Signs - 24 hr 02/11/21 10:07 02/11/21 10:30 Temperature 36.7 C Temperature Source Oral Pulse Rate 76 78 Pulse Rate from SpO2 Sensor 77 Respiratory Rate 15 26 H Respiratory Effort / Characteristics Non-Labored Respiratory Depth Normal Blood Pressure 137/82 137/67 Blood Pressure Mean 100 90 Blood Pressure Position Lying Pulse Oximetry 97 Oxygen Delivery Method Room Air Sepsis Recent Fever Within 48 Hours No Sepsis New/Unexplained Change in Mental Status N/A Sepsis Action Taken by Nursing No Action Required CONSTITUTIONAL/VITAL SIGNS: Reviewed / noted above. GENERAL: Non-toxic in appearance. INTEGUMENTARY: Warm, dry, and [place]. HEAD: Normocephalic. EYES: without scleral icterus or trauma. ENT/OROPHARYNX: clear and moist. LYMPHADENOPATHY/NECK: Is supple without lymphadenopathy or meningismus. RESPIRATORY: Clear to auscultation bilaterally. No increased work of breathing. CARDIOVASCULAR: Regular rate and rhythm. GI/ABDOMEN: Soft and nontender. No organomegaly or pulsatile mass. EXTREMITIES: Warm and well perfused. BACK: No CVA tenderness. NEUROLOGICAL: Intact without focal deficits. PSYCHIATRIC: normal affect. MUSCULOSKELETAL: Normally developed with good muscle tone. TRIAGE NURSING DOCUMENTATION REVIEWED. Critical Care Time Critical Care Time: Yes I have personally spent 30 minutes of critical care time in the direct dori gement of this patient. This includes bedside care, interpretation of diagnostic studies, and testing, discussion with consultants, patient, and family members, and other required patient management activities. This 30 minutes is in excess of all separately billable procedures. Medical Decision Making Differential Diagnosis Differential includes acute coronary syndrome, myocardial infarction, CVA, TIA, anemia, infection, pneumonia, UTI, pyelonephritis, poor nutrition, dehydration, electrolyte disturbance,hypoglycemia. Medical Records Attestation: I reviewed the patient's medical records. Home Medications Current Medication List: was personally reviewed by me Laboratory Data Attestation: I reviewed the patient's lab results. Result diagrams: 02/11/21 10:38 02/11/21 10:38 Lab Results 02/11/21 02/11/21 02/11/21 Range/Units 10:38 10:38 10:38 WBC 4.59 L (4.8-10.8) K/uL RBC 2.59 L (4.2-5.4) M/uL Hgb 6.3 L* (12.0-16.0) g/dL Hct 21.4 L (37-47) % MCV 82.6 (80-100) fL MCH 24.3 L (25-34) pg MCHC 29.4 L (32-36) g/dL RDW Std Deviation 51.8 H (36.4-46.3) fL RDW Coeff of Tatiana 17.3 H (11.5-14.5) % Plt Count 382 (130-400) K/uL MPV 9.2 (7.4-10.4) fL Immature Gran % (Auto) 0.0 % Neut % (Auto) 56.5 % Lymph % (Auto) 27.0 % [place] % (Auto) 6.5 % Eos % (Auto) 9.6 % Baso % (Auto) 0.4 % Neut # (Auto) 2.59 (1.4-6.5) K/uL Lymph # (Auto) 1.24 (1.2-3.4) K/uL [place] # (Auto) 0.30 (0.11-0.59) K/uL Eos # (Auto) 0.44 (0-0.5) K/uL Baso # (Auto) 0.02 (0-0.2) K/uL Immature Gran # (Auto) 0.00 (0.00-0.02) K/uL Microcytosis Present PT 9.5 (9.0-12.0) Seconds INR 0.9 (0.9-1.1) APTT 20.9 L (21.0-31.0) Seconds PTT Ratio 0.8 Sodium (136-145) mmol/L Potassium (3.5-5.1) mmol/L Chloride (98-107) mmol/L Carbon Dioxide (21-32) mmol/L Anion Gap (3-11) BUN (7-18) mg/dl Creatinine (0.6-1.2) mg/dl Est Cr Clr Drug Dosing ml/min Est GFR ( Amer) ml/min Est GFR (Non-Af Amer) ml/min BUN/Creatinine Ratio (10-20) Glucose (70-99) mg/dl Calcium (8.5-10.1) mg/dl Total Bilirubin (0.2-1) mg/dl AST (15-37) U/L ALT (12-78) U/L Alkaline Phosphatase (45-117) U/L Total Protein (6.4-8.2) gm/dl Albumin (3.4-5.0) gm/dl Globulin (2.5-4.0) gm/dl Albumin/Globulin Ratio (0.9-2) Blood Type A Positive Antibody Screen NEGATIVE Crossmatch See Detail 02/11/21 Range/Units 10:38 WBC (4.8-10.8) K/uL RBC (4.2-5.4) M/uL Hgb (12.0-16.0) g/dL Hct (37-47) % MCV (80-100) fL MCH (25-34) pg MCHC (32-36) g/dL RDW Std Deviation (36.4-46.3) fL RDW Coeff of Tatiana (11.5-14.5) % Plt Count (130-400) K/uL MPV (7.4-10.4) fL Immature Gran % (Auto) % Neut % (Auto) % Lymph % (Auto) % [place] % (Auto) % Eos % (Auto) % Baso % (Auto) % Neut # (Auto) (1.4-6.5) K/uL Lymph # (Auto) (1.2-3.4) K/uL [place] # (Auto) (0.11-0.59) K/uL Eos # (Auto) (0-0.5) K/uL Baso # (Auto) (0-0.2) K/uL Immature Gran # (Auto) (0.00-0.02) K/uL Microcytosis PT (9.0-12.0) Seconds INR (0.9-1.1) APTT (21.0-31.0) Seconds PTT Ratio Sodium 145 (136-145) mmol/L Potassium 4.1 (3.5-5.1) mmol/L Chloride 115 H (98-107) mmol/L Carbon Dioxide 27 (21-32) mmol/L Anion Gap 3.0 (3-11) BUN 20 H (7-18) mg/dl Creatinine 1.12 (0.6-1.2) mg/dl Est Cr Clr Drug Dosing 40.6 ml/min Est GFR ( Amer) 55.6 ml/min Est GFR (Non-Af Amer) 48.0 ml/min BUN/Creatinine Ratio 18.1 (10-20) Glucose 103 H (70-99) mg/dl Calcium 8.1 L (8.5-10.1) mg/dl Total Bilirubin 0.2 (0.2-1) mg/dl AST 17 (15-37) U/L ALT 26 (12-78) U/L Alkaline Phosphatase 117 (45-117) U/L Total Protein 5.9 L (6.4-8.2) gm/dl Albumin 3.1 L (3.4-5.0) gm/dl Globulin 2.8 (2.5-4.0) gm/dl Albumin/Globulin Ratio 1.1 (0.9-2) Blood Type Antibody Screen Crossmatch ECG Data Attestation: I personally reviewed and interpreted this ECG as follows: MDM Narrative 75-year-old female presents to the ED with a chief complaint of anemia. Details listed above. The patient was typed and crossed for blood. She was administered 1 unit of blood during her ED stay. The patient will require further inpatient evaluation and care for her anemia. Impression & Plan Anemia Discharge Plan Visit Data Chief Complaint: Abnormal Labs/Diagnostic Testing ED Provider: Donald Guillermo Discharge Problem: Anemia Patient Disposition: Being Evaluated by Hospitalist Forms Stand Alone Forms: My [facility], [facility] Emergency Department, Important Visit Information Prescriptions Prescriptions: No Action amoxicillin 500 mg tablet 2,000 mg PO ONCE Qty: 4 RF: 3 (DME) Wheelchair (Manual) Device See Rx Instructions .MEDSUPPLY Qty: 1 RF: 0 trazodone 50 mg tablet 50 mg PO HS RF: 0 levothyroxine 50 mcg tablet 50 mcg PO .SUN,EMILIA RF: 0 levothyroxine 50 mcg tablet 25 mcg PO .MON,TUE,WED,FRI,SAT RF: 0 potassium citrate 10 mEq (1,080 mg) Tablet Extended Release 10 meq PO BID RF: 0 fluticasone propionate 50 mcg/actuation spray,suspension 2 spray intranasal QAM RF: 0 prazosin 1 mg capsule 1 mg PO HS RF: 0 ropinirole 4 mg tablet extended release 24 hr 4 mg PO HS RF: 0 azithromycin 250 mg tablet 250 mg PO UD RF: 0 atovaquone 750 mg/5 mL suspension 1,500 mg PO UD RF: 0 pregabalin 25 mg capsule 50 mg PO QAM RF: 0 tramadol 50 mg Tablet 50 mg PO Q4H PRN (Reason: pain) Qty: 40 RF: 0 Referrals Referrals: Saritha Bishop, [Primary Care Provider] -
--- NOTE | 2021-02-11 12:04 | XRay Report ---
SINGLE VIEW CHEST CLINICAL HISTORY: Lower extremity edema. Cough and fever FINDINGS: An AP, portable, upright chest radiograph is compared to study dated 12/26/2020. The heart is top normal for projection noting atherosclerotic calcification of the thoracic aorta. Chronic inters titial thickening is similar to previous. There is mild bibasilar atelectasis. No airspace consolidat ion or large pleural effusion is identified. No pneumothorax is seen. The skeletal structures are ost eopenic. The bony thorax is grossly intact. Cholecystectomy clips are noted in the right upper quadra nt. IMPRESSION: No active disease in the chest. ACT 112: Negative or not required by law. Electronically signed by: Efe Abbasi M.D. 02/11/2021 12:02 PM
--- NOTE | 2021-02-11 12:35 | History & Physical Report ---
Date of Service February 11, 2021 Assessment & Plan (1) Anemia: Plan: Acute on Chronic Anemia. Anemia chronic disease, iron deficiency anemia Pt is 75 y/o F with PMH GERD, anemia of chronic disease, iron deficiency anemia (received iron IV on 01/30/21), h/o PUD s/p Billroth 2 and had post op gastroparesis & failed treatment then had gastrectomy in 2010, h/o Breast cancer s/p surgery and chemo, CKD III, CLEMENTINA, depression, hypothyroidism, spinal stenosis, RLS presented to ER for abnormal labs-anemia. Patient with progressive anemia over the past month. Baseline hemoglobin 9-10. In December hemoglobin of 8, 2 weeks ago hemoglobin is 7. Patient felt fatigued yesterday. Today patient was to have endoscopy and colonoscopy secondary to anemia however was found to have hemoglobin of 6.3 and was referred to ER for further treatment. Today in ER vitals stable, H/H: 6.3/. In ER 1 unit PRBC started Typed and crossed. Repeat H&H tonight, may need additional PRBC transfusion H&H every 6 hours Fecal occult pending Anemia labs. In November patient with ferritin of 14. Patient completed colonoscopy prep IVF GI consult. spoke with on-call and they plan to do endoscopy/colonoscopy tomorrow. Will allow clear liquid diet today and n.p.o. at midnight CBC, BMP in a.m. CKD III Cr: 1.12. Baseline Cr~1.4 Avoid nephrotoxic agents when possible Monitor renal functions Prediabetes Diet controlled A1c in am Novolog sliding scale per protocol Hypothyroidism Plan to resume levothyroxine on 02/13/21 Depression Plan to resume Effexor on 02/13/21 Recent left trimalleolar fracture Had cast removed 2 days ago by Ortho Patient having lower leg edema. Today had venous Doppler which was negative for DVT DVT Prophylaxis SCDs Full Code as per discussion with pt Follows with Dr Bishop for routine care Pt was seen and care coordinated with Dr Young. See addendum History of Present Illness Chief Complaint: Abnormal labs- anemia Primary Care Provider: Saritha Bishop, DO Pt is 75 y/o F with PMH GERD, anemia of chronic disease, iron deficiency anemia (received iron IV on 01/30/21), h/o PUD s/p Billroth 2 and had post op gastroparesis & failed treatment then had gastrectomy in 2010, h/o Breast cancer s/p surgery and chemo, CKD III, CLEMENTINA, depression, hypothyroidism, spinal stenosis, RLS presented to ER for abnormal labs-anemia. Patient with progressive anemia over the past month. Baseline hemoglobin 9-10. In December hemoglobin of 8, 2 weeks ago hemoglobin is 7. Today patient was to have endoscopy and colonoscopy secondary to anemia however was found to have hemoglobin of 6.3 and was referred to ER for further treatment. Patient completed colonoscopy prep yesterday. Last ate on 02/09/2021 and had sip of water this morning. States yesterday was feeling tired, is unsure if was secondary to completing colonoscopy prep. Denies shortness of breath, exertional shortness of breath, chest pain, dizziness, syncope. Denies melena, hematochezia. Patient has chronic poor appetite. She states she drinks 1 boost a day. Patient with recent left trimalleolar fracture and repair. She had cast removed 2 days ago. Patient states noted edema to left lower leg. This morning she had venous Doppler which was negative for DVT. Denies fever/chills, diaphoresis, N/V/D/C, LEARY, vision changes, neck pain, orthopnea, palpitations, cough, sore throat, choking, otalgia, rhinorrhea, abdominal pain, paresthesias, weakness, extremity weakness, rashes, urinary symptoms. Today in ER vitals stable, H/H: 6.3/21. 1 unit PRBC started in ER. Patient being admitted for further treatment. Allergies Allergy/AdvReac Type Severity Reaction Status Date / Time Sulfa (Sulfonamide Allergy Intermediate HIVES Verified 02/11/21 10:39 Antibiotics) metoclopramide AdvReac Intermediate depression Verified 02/11/21 10:39 Home Medications Medication Instructions Recorded Confirmed Type fluticasone propionate 50 2 spray INTRANASAL QAM 10/15/18 02/11/21 History mcg/actuation nasal spray,suspension levothyroxine 50 mcg tablet 25 mcg PO .MON,TUE,WED,FRI,SAT 10/15/18 02/11/21 History levothyroxine 50 mcg tablet 50 mcg PO .SUN,THUR 10/15/18 02/11/21 History potassium citrate 10 mEq (1,080 10 meq PO BID 10/15/18 02/11/21 History mg) tablet,extended release trazodone 50 mg tablet 50 mg PO HS 10/15/18 02/11/21 History prazosin 1 mg capsule 1 mg PO HS 06/17/20 02/11/21 History ropinirole 4 mg tablet,extended 4 mg PO HS 06/17/20 02/11/21 History release 24 hr pregabalin 25 mg capsule 50 mg PO QAM 12/26/20 02/11/21 History tramadol 50 mg tablet 50 mg PO Q4H PRN #40 tab 12/28/20 02/11/21 Rx Wheelchair (Manual) #1 ea 01/01/21 02/11/21 Rx Past Med/Surg History Medical History Anemia due to chronic kidney disease Arthritis CKD (chronic kidney disease), stage III History of COVID-12 JUNE 2020 (HOSPITALIZED AT [facility]) History of depression History of TMJ disorder Hx of gastric ulcer RESULTING IN GASTRECTOMY Hx of migraines Hx of sleep apnea RESOLVED 2007 HX: breast cancer Hypothyroidism Lyme disease Macular degeneration Polycystic ovarian disease RLS (restless legs syndrome) Spinal stenosis Surgical History H/O Billroth II operation H/O bone marrow transplant 1993 H/O oophorectomy H/O sinus surgery History of ankle surgery LEFT (12/28/20) History of appendectomy History of cataract surgery RT/LEFT History of colonoscopy History of esophagogastroduodenoscopy (EGD) History of tonsillectomy and adenoidectomy History of total right hip replacement Hx of lumpectomy LEFT S/P subtotal gastrectomy D/T GASTRIC ULCERS Family History Father Atrial fibrillation Other No family history of adverse response to anesthesia Social History (Updated 02/11/21 @ 13:38 by Latha Castañeda PA-C) Smoking Status: Never smoker Second Hand Exposure: Yes (IN THE PAST); Hx Alcohol Use: No Hx Substance Use: No Preferred Language: Citizen [place] Communication Ability: Effective 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 Beliefs That Will Affect Care: None marital status: / marital status details: within last 8-9 mo Current Living Situation: Alone Other Information That Helps Us Care for You: No Feels Safe at Home: Yes Safety Concerns: Feels Safe At This Time Assistive Devices: Glasses and Special Shoe Review of Systems Review of Systems: All systems reviewed & are unremarkable except as noted in HPI & below Physical Exam Physical Exam: General: no distress, WDWN Head: normocephalic, atraumatic Eyes: PERRL, EOM's intact, conjunctiva non-injected, anicteric ENT: normal inspection external ears, nose, mucous membranes moist Neck: supple, trachea midline Lungs: clear, no respiratory distress, no wheezing/rhonchi/rales CV: RRR, no murmur, no pretibial edema Abd: normal BS, soft, non-tender Ext: no cyanosis or erythema. LLE +edema, non-tender, left ankle with healed incision, no calf tenderness Neuro: A&O x 3, no focal deficits noted, normal affect Skin: warm, dry Results & Data Results & Data ([facility]) Vital Signs (Past 12 Hours) Vital Signs Temp Pulse Resp BP Pulse Ox 02/11/21 12:15 36.9 C 72 16 134/60 100 02/11/21 12:00 36.9 C 73 16 129/58 L 100 02/11/21 10:30 78 26 H 137/67 97 02/11/21 10:07 36.7 C 76 15 137/82 Laboratory Results Short CBC 02/11/21 Range/Units 10:38 WBC 4.59 L (4.8-10.8) K/uL Hgb 6.3 L* (12.0-16.0) g/dL Hct 21.4 L (37-47) % Plt Count 382 (130-400) K/uL BMP 02/11/21 10:38 Sodium 145 Potassium 4.1 Chloride 115 H Carbon Dioxide 27 BUN 20 H Creatinine 1.12 Glucose 103 H Calcium 8.1 L Liver Function 02/11/21 Range/Units 10:38 Total Bilirubin 0.2 (0.2-1) mg/dl AST 17 (15-37) U/L ALT 26 (12-78) U/L Alkaline Phosphatase 117 (45-117) U/L Albumin 3.1 L (3.4-5.0) gm/dl Diagnostic Findings Chest X-Ray 02/11/21 11:48 SINGLE VIEW CHEST CLINICAL HISTORY: Lower extremity edema. Cough and fever FINDINGS: An AP, portable, upright chest radiograph is compared to study dated 12/26/2020. The heart is top normal for projection noting atherosclerotic calcification of the thoracic aorta. Chronic interstitial thickening is similar to previous. There is mild bibasilar atelectasis. No airspace consolidation or large pleural effusion is identified. No pneumothorax is seen. The skeletal structures are osteopenic. The bony thorax is grossly intact. Cholecystectomy clips are noted in the right upper quadrant. IMPRESSION: No active disease in the chest. ACT 112: Negative or not required by law. Electronically signed by: Efe Abbasi M.D. 02/11/2021 12:02 PM Code Status & VTE Plan VTE Prophylaxis Plan VTE Prophylaxis will be ordered: Yes Supervising Physician Co-Signing Physician Notes Patient is a 75-year-old female with history of anemia of chronic disease, iron deficiency anemia, gastroparesis, CKD stage III and other medical problems presents with history of gradually worsening anemia for 1 month duration. Patient was planned to have an elective colonoscopy for anemia today and was found to have hemoglobin of 6.3 and so was admitted for further evaluation. She denies any chest pain, dyspnea on exertion, dizziness. Also denies any melena, bleeding per rectum. Please review HPI for complete details of presentation. On exam patient is moderately built and nourished, no apparent distress, normocephalic atraumatic, EOMI,+ pallor, normal breath sounds, clear to auscultation, S1-S2, no murmur, abdomen soft, nontender, normal bowel sounds, alert, awake, oriented, grossly no focal deficits, left lower extremity edema from recent ankle surgery. Patient is admitted for management of acute on chronic anemia. Agree with transfusion and holding aspirin. Will monitor H&H and transfuse as needed. Will request anemia work-up. Start on PPI. GI will be consulted. Fecal occult pending. Further management based on GI evaluation. I personally reviewed the record. Patient is interviewed and examined at bedside. Patient's care is coordinated with Latha Castañeda PA-C. Please refer to the documentation above for details of patient's presentation and for discussion of other issues. (1) Anemia Anemia type: unspecified type Qualified Code(s): D64.9 - Anemia, unspecified
--- NOTE | 2021-02-11 16:27 | Electrocardiogram Report ---
Test Reason : Blood Pressure : / mmHG Vent. Rate : 068 BPM Atrial Rate : 068 BPM P-R Int : 158 ms QRS Dur : 090 ms QT Int : 414 ms P-R-T Axes : 052 -18 022 degrees QTc Int : 440 ms Normal sinus rhythm Low voltage QRS Borderline ECG When compared with ECG of 17-JUN-2020 19:19, No significant change was found Confirmed by Xavier Friend ([id number]) on 02/11/2021 4:27:27 PM Referred By: Mulugeta Raymundo Confirmed By:Xavier Friend
[2021-02-11] MEDS ORDERED: CARBOHYDRATES FOR HYPOGLYCEMIA PO PRN (16:58)
[2021-02-11] MEDS ORDERED: GLUCOSE 40% GEL 15 GM TUBE PO PRN (16:58)
[2021-02-11] MEDS ORDERED: DEXTROSE 50% 50 ML SYRINGE IV PRN (16:58)
[2021-02-11] MEDS ORDERED: ACETAMINOPHEN 325 MG TAB PO PRN (16:58)
[2021-02-11] MEDS ORDERED: GLUCAGON FOR INJ 1 MG VIAL SQ PRN (16:58)
[2021-02-11] MEDS ORDERED: ONDANSETRON INJ 2 MG/ML 2 ML VIAL IV PRN (16:58)
[2021-02-11] MEDS ORDERED: GLUCOSE 10 TABS/TUBE PO PRN (16:58)
[2021-02-11] MEDS ORDERED: POLYETHYLENE (MIRALAX) 17 GM PACK PO SCH (17:00)
[2021-02-11] MEDS ORDERED: IRON SUCROSE 200 MG in 0.9 % SODIUM CHLORIDE 100 ML IV ONE (17:30)
[2021-02-11 17:46] LABS: Hematocrit (blood only) 25.6 % (37-47); Hemoglobin 7.8 g/dL (12.0-16.0)
[2021-02-11] MEDS: SODIUM CHLORIDE 0.9% 1000ML 1,000 ML IV SCH (18:51)
[2021-02-11] MEDS: INSULIN ASPART 100 UNITS/ML 3 ML PEN SC SCH ×2 (18:54→20:14)
[2021-02-11] MEDS: PANTOprazole 40 MG in SYRINGE 0 ML IV SCH (18:55)
[2021-02-11 20:14] LABS: Folate (Folic Acid) > 20.00 ng/ml (>5.38); Vitamin B12 > 2000 pg/ml (193-986)
[2021-02-11] MEDS ORDERED: PRAZOSIN HCL 1 MG CAP PO SCH (21:00)
[2021-02-11] MEDS ORDERED: traZODone HCL 50 MG TAB PO SCH (21:00)
[2021-02-11] MEDS: traMADol HCL 50 MG TABLET PO PRN (21:00)
[2021-02-11] MEDS ORDERED: rOPINIRole HCL 1 MG TABLET PO SCH (22:00)
[2021-02-11 23:11] LABS: Hematocrit (blood only) 22.9 % (37-47); Hemoglobin 6.9 g/dL (12.0-16.0)
[2021-02-12] MEDS ORDERED: ACETAMINOPHEN 325 MG TAB PO ONE
[2021-02-12] MEDS: SODIUM CHLORIDE 0.9% 1000ML 1,000 ML IV SCH (05:53)
[2021-02-12] MEDS: traMADol HCL 50 MG TABLET PO PRN ×2 (06:49→17:57)
[2021-02-12 07:47] LABS: Hematocrit (blood only) 30.8 % (37-47); Hemoglobin 9.6 g/dL (12.0-16.0); Mean Corpuscular Hemoglobin 26.2 pg (25-34); Mean Corpuscular Hgb Conc 31.2 g/dL (32-36); Mean Corpuscular Volume 83.9 fL (80-100); Mean Platelet Volume 9.9 fL (7.4-10.4); Platelet Count 329 K/uL (130-400); RDW Coefficient of Variation 16.9 % (11.5-14.5); RDW Standard Deviation 51.3 fL (36.4-46.3); Red Blood Count 3.67 M/uL (4.2-5.4)
[2021-02-12 08:18] LABS: BUN Creatinine Ratio 13.3 (10-20); Calcium 8.3 mg/dl (8.5-10.1); Creatinine Clr Calc Pharmacy 38.9 ml/min; Est GFR (African American) 52.8 ml/min; Est GFR (Non-African American) 45.5 ml/min; Potassium 3.9 mmol/L (3.5-5.1)
--- NOTE | 2021-02-12 08:48 | Hospitalist Progress Note ---
Date of Service February 12, 2021 Assessment & Plan (1) Anemia: Plan: Acute on Chronic Anemia. Anemia chronic disease, iron deficiency anemia Pt is 75 y/o F with PMH GERD, anemia of chronic disease, iron deficiency anemia (received iron IV on 01/30/21), h/o PUD s/p [place] 2 and had post op gastroparesis & failed treatment then had gastrectomy in 2010, h/o Breast cancer s/p surgery and chemo, CKD III, CLEMENTINA, depression, hypothyroidism, spinal stenosis, RLS presented to ER for abnormal labs-anemia. Patient with progressive anemia over the past month. Baseline hemoglobin 9-10. In December hemoglobin of 8, 2 weeks ago hemoglobin is 7. Patient felt fatigued yesterday. Today patient was to have endoscopy and colonoscopy secondary to anemia however was found to have hemoglobin of 6.3 and was referred to ER for further treatment. Today in ER vitals stable, H/H: 6.3/. Received total of 3 units of PRBCs, since admission H&H every 6 hours Fecal occult pending Anemia labs. In November patient with ferritin of 14. Patient completed colonoscopy prep IVF GI consult. Plan to do endoscopy/colonoscopy today. CBC, BMP in a.m. CKD III Cr: 1.12. Baseline Cr~1.4 Avoid nephrotoxic agents when possible Monitor renal functions Prediabetes Diet controlled A1c in am Novolog sliding scale per protocol Hypothyroidism Plan to resume levothyroxine on 02/13/21 Depression Plan to resume Effexor on 02/13/21 Recent left trimalleolar fracture Had cast removed 2 days ago by Ortho Patient having lower leg edema. Had venous Doppler on day of admission which was negative for DVT Edema improved today DVT Prophylaxis SCDs Full Code as per discussion with pt Follows with Dr Bishop for routine care Admission and Anticipated Discharge Date Admission Date: February 11, 2021 Subjective Patient seen in follow-up of anemia, concern for GI bleed Plan for EGD and colonoscopy today Patient was supposed to undergo EGD and colonoscopy as outpatient however her hemoglobin was low and therefore she was sent to ER Received blood transfusion on admission No bleeding noted, per rectum or otherwise Patient is lying in bed, in no acute distress, overall says that she feels well, she is hopeful to be discharged home soon after her procedures No chest pain, shortness of breath, dizziness or lightheadedness, no abdominal pain Review of Systems Review of Systems: All systems reviewed & are unremarkable except as noted in HPI & below Physical Exam Physical Exam: General: no distress, WDWN Head: normocephalic, atraumatic Eyes: PERRL, EOM's intact, conjunctiva non-injected, anicteric ENT: normal inspection external ears, nose, mucous membranes moist Neck: supple, trachea midline Lungs: clear, no respiratory distress, no wheezing/rhonchi/rales CV: RRR, no murmur, no pretibial edema Abd: normal BS, soft, non-tender Ext: no cyanosis or erythema. LLE +edema (improved), non-tender, left ankle with healed incision, no calf tenderness Neuro: A&O x 3, no focal deficits noted, normal affect Skin: warm, dry Results & Data Results & Data ([facility]) Vital Signs (Past 12 Hours) Vital Signs Temp Pulse Pulse Resp BP BP BP 02/12/21 07:41 36.9 C 67 16 137/76 02/12/21 06:48 36.6 C 64 20 133/73 02/12/21 06:05 36.6 C 63 16 137/71 02/12/21 06:04 36.6 C 63 16 137/71 02/12/21 05:05 36.6 C 62 16 133/74 02/12/21 04:39 36.6 C 72 20 134/74 02/12/21 04:35 36.6 C 72 20 134/74 02/12/21 04:20 36.8 C 65 18 127/86 02/12/21 04:02 36.7 C 64 18 149/71 H 02/12/21 03:31 36.8 C 57 L 16 121/68 02/12/21 02:27 36.6 C 65 16 128/69 02/12/21 01:29 36.5 C 64 16 109/70 02/12/21 01:00 36.6 C 65 16 105/63 02/12/21 00:47 36.6 C 74 18 105/62 02/12/21 00:24 36.7 C 69 18 106/55 L 02/11/21 22:39 36.7 C 74 16 128/61 02/11/21 20:59 129/70 Pulse Ox 02/12/21 07:41 99 02/12/21 06:48 98 02/12/21 06:05 99 02/12/21 06:04 99 02/12/21 05:05 99 02/12/21 04:39 96 02/12/21 04:35 96 02/12/21 04:20 98 02/12/21 04:02 99 02/12/21 03:31 02/12/21 02:27 98 02/12/21 01:29 98 02/12/21 01:00 99 02/12/21 00:47 99 02/12/21 00:24 96 02/11/21 22:39 97 02/11/21 20:59 Laboratory Results 02/12/21 02/12/21 02/12/21 Range/Units 07:15 07:15 07:15 WBC 4.40 L (4.8-10.8) K/uL RBC 3.67 L (4.2-5.4) M/uL Hgb 9.6 L (12.0-16.0) g/dL Hct 30.8 L (37-47) % MCV 83.9 (80-100) fL MCH 26.2 (25-34) pg MCHC 31.2 L (32-36) g/dL RDW Std Deviation 51.3 H (36.4-46.3) fL RDW Coeff of Tatiana 16.9 H (11.5-14.5) % Plt Count 329 (130-400) K/uL MPV 9.9 (7.4-10.4) fL Immature Gran % (Auto) % Neut % (Auto) % Lymph % (Auto) % [place] % (Auto) % Eos % (Auto) % Baso % (Auto) % Neut # (Auto) (1.4-6.5) K/uL Lymph # (Auto) (1.2-3.4) K/uL [place] # (Auto) (0.11-0.59) K/uL Eos # (Auto) (0-0.5) K/uL Baso # (Auto) (0-0.2) K/uL Immature Gran # (Auto) (0.00-0.02) K/uL Microcytosis PT (9.0-12.0) Seconds INR (0.9-1.1) APTT (21.0-31.0) Seconds PTT Ratio Sodium 145 (136-145) mmol/L Potassium 3.9 (3.5-5.1) mmol/L Chloride 116 H (98-107) mmol/L Carbon Dioxide 26 (21-32) mmol/L Anion Gap 3.0 (3-11) BUN 16 (7-18) mg/dl Creatinine 1.17 (0.6-1.2) mg/dl Est Cr Clr Drug Dosing 38.9 ml/min Est GFR ( Amer) 52.8 ml/min Est GFR (Non-Af Amer) 45.5 ml/min BUN/Creatinine Ratio 13.3 (10-20) Glucose 78 (70-99) mg/dl Estimat Average Glucose Pending Hemoglobin A1c Pending Calcium 8.3 L (8.5-10.1) mg/dl Iron (35-150) mcg/dl TIBC (250-450) mcg/dl Transferrin (200-360) mg/dl Ferritin (8-388) ng/ml Total Bilirubin (0.2-1) mg/dl AST (15-37) U/L ALT (12-78) U/L Alkaline Phosphatase (45-117) U/L Total Protein (6.4-8.2) gm/dl Albumin (3.4-5.0) gm/dl Globulin (2.5-4.0) gm/dl Albumin/Globulin Ratio (0.9-2) Vitamin B12 (193-986) pg/ml Folate (>5.38) ng/ml COVID-19 Eval Order SARS-CoV-2 (PCR) (Negative) Blood Type Antibody Screen Crossmatch 02/11/21 02/11/21 02/11/21 Range/Units 22:34 17:36 17:36 WBC (4.8-10.8) K/uL RBC (4.2-5.4) M/uL Hgb 6.9 L* 7.8 L (12.0-16.0) g/dL Hct 22.9 L 25.6 L (37-47) % MCV (80-100) fL MCH (25-34) pg MCHC (32-36) g/dL RDW Std Deviation (36.4-46.3) fL RDW Coeff of Tatiana (11.5-14.5) % Plt Count (130-400) K/uL MPV (7.4-10.4) fL Immature Gran % (Auto) % Neut % (Auto) % Lymph % (Auto) % [place] % (Auto) % Eos % (Auto) % Baso % (Auto) % Neut # (Auto) (1.4-6.5) K/uL Lymph # (Auto) (1.2-3.4) K/uL [place] # (Auto) (0.11-0.59) K/uL Eos # (Auto) (0-0.5) K/uL Baso # (Auto) (0-0.2) K/uL Immature Gran # (Auto) (0.00-0.02) K/uL Microcytosis PT (9.0-12.0) Seconds INR (0.9-1.1) APTT (21.0-31.0) Seconds PTT Ratio Sodium (136-145) mmol/L Potassium (3.5-5.1) mmol/L Chloride (98-107) mmol/L Carbon Dioxide (21-32) mmol/L Anion Gap (3-11) BUN (7-18) mg/dl Creatinine (0.6-1.2) mg/dl Est Cr Clr Drug Dosing ml/min Est GFR ( Amer) ml/min Est GFR (Non-Af Amer) ml/min BUN/Creatinine Ratio (10-20) Glucose (70-99) mg/dl Estimat Average Glucose Hemoglobin A1c Calcium (8.5-10.1) mg/dl Iron (35-150) mcg/dl TIBC (250-450) mcg/dl Transferrin (200-360) mg/dl Ferritin (8-388) ng/ml Total Bilirubin (0.2-1) mg/dl AST (15-37) U/L ALT (12-78) U/L Alkaline Phosphatase (45-117) U/L Total Protein (6.4-8.2) gm/dl Albumin (3.4-5.0) gm/dl Globulin (2.5-4.0) gm/dl Albumin/Globulin Ratio (0.9-2) Vitamin B12 > 2000 H (193-986) pg/ml Folate > 20.00 (>5.38) ng/ml COVID-19 Eval Order SARS-CoV-2 (PCR) (Negative) Blood Type Antibody Screen Crossmatch 02/11/21 02/11/21 02/11/21 Range/Units 12:19 12:19 10:38 WBC (4.8-10.8) K/uL RBC (4.2-5.4) M/uL Hgb (12.0-16.0) g/dL Hct (37-47) % MCV (80-100) fL MCH (25-34) pg MCHC (32-36) g/dL RDW Std Deviation (36.4-46.3) fL RDW Coeff of Tatiana (11.5-14.5) % Plt Count (130-400) K/uL MPV (7.4-10.4) fL Immature Gran % (Auto) % Neut % (Auto) % Lymph % (Auto) % [place] % (Auto) % Eos % (Auto) % Baso % (Auto) % Neut # (Auto) (1.4-6.5) K/uL Lymph # (Auto) (1.2-3.4) K/uL [place] # (Auto) (0.11-0.59) K/uL Eos # (Auto) (0-0.5) K/uL Baso # (Auto) (0-0.2) K/uL Immature Gran # (Auto) (0.00-0.02) K/uL Microcytosis PT (9.0-12.0) Seconds INR (0.9-1.1) APTT (21.0-31.0) Seconds PTT Ratio Sodium (136-145) mmol/L Potassium (3.5-5.1) mmol/L Chloride (98-107) mmol/L Carbon Dioxide (21-32) mmol/L Anion Gap (3-11) BUN (7-18) mg/dl Creatinine (0.6-1.2) mg/dl Est Cr Clr Drug Dosing ml/min Est GFR ( Amer) ml/min Est GFR (Non-Af Amer) ml/min BUN/Creatinine Ratio (10-20) Glucose (70-99) mg/dl Estimat Average Glucose Hemoglobin A1c Calcium (8.5-10.1) mg/dl Iron 11 L (35-150) mcg/dl TIBC 412 (250-450) mcg/dl Transferrin 302 (200-360) mg/dl Ferritin 24.0 (8-388) ng/ml Total Bilirubin (0.2-1) mg/dl AST (15-37) U/L ALT (12-78) U/L Alkaline Phosphatase (45-117) U/L Total Protein (6.4-8.2) gm/dl Albumin (3.4-5.0) gm/dl Globulin (2.5-4.0) gm/dl Albumin/Globulin Ratio (0.9-2) Vitamin B12 (193-986) pg/ml Folate (>5.38) ng/ml COVID-19 Eval Order Covid19 at [facility] SARS-CoV-2 (PCR) NEGATIVE (Negative) Blood Type Antibody Screen Crossmatch 02/11/21 02/11/21 02/11/21 Range/Units 10:38 10:38 10:38 WBC 4.59 L (4.8-10.8) K/uL RBC 2.59 L (4.2-5.4) M/uL Hgb 6.3 L* (12.0-16.0) g/dL Hct 21.4 L (37-47) % MCV 82.6 (80-100) fL MCH 24.3 L (25-34) pg MCHC 29.4 L (32-36) g/dL RDW Std Deviation 51.8 H (36.4-46.3) fL RDW Coeff of Tatiana 17.3 H (11.5-14.5) % Plt Count 382 (130-400) K/uL MPV 9.2 (7.4-10.4) fL Immature Gran % (Auto) 0.0 % Neut % (Auto) 56.5 % Lymph % (Auto) 27.0 % [place] % (Auto) 6.5 % Eos % (Auto) 9.6 % Baso % (Auto) 0.4 % Neut # (Auto) 2.59 (1.4-6.5) K/uL Lymph # (Auto) 1.24 (1.2-3.4) K/uL [place] # (Auto) 0.30 (0.11-0.59) K/uL Eos # (Auto) 0.44 (0-0.5) K/uL Baso # (Auto) 0.02 (0-0.2) K/uL Immature Gran # (Auto) 0.00 (0.00-0.02) K/uL Microcytosis Present PT 9.5 (9.0-12.0) Seconds INR 0.9 (0.9-1.1) APTT 20.9 L (21.0-31.0) Seconds PTT Ratio 0.8 Sodium 145 (136-145) mmol/L Potassium 4.1 (3.5-5.1) mmol/L Chloride 115 H (98-107) mmol/L Carbon Dioxide 27 (21-32) mmol/L Anion Gap 3.0 (3-11) BUN 20 H (7-18) mg/dl Creatinine 1.12 (0.6-1.2) mg/dl Est Cr Clr Drug Dosing 40.6 ml/min Est GFR ( Amer) 55.6 ml/min Est GFR (Non-Af Amer) 48.0 ml/min BUN/Creatinine Ratio 18.1 (10-20) Glucose 103 H (70-99) mg/dl Estimat Average Glucose Hemoglobin A1c Calcium 8.1 L (8.5-10.1) mg/dl Iron (35-150) mcg/dl TIBC (250-450) mcg/dl Transferrin (200-360) mg/dl Ferritin (8-388) ng/ml Total Bilirubin 0.2 (0.2-1) mg/dl AST 17 (15-37) U/L ALT 26 (12-78) U/L Alkaline Phosphatase 117 (45-117) U/L Total Protein 5.9 L (6.4-8.2) gm/dl Albumin 3.1 L (3.4-5.0) gm/dl Globulin 2.8 (2.5-4.0) gm/dl Albumin/Globulin Ratio 1.1 (0.9-2) Vitamin B12 (193-986) pg/ml Folate (>5.38) ng/ml COVID-19 Eval Order SARS-CoV-2 (PCR) (Negative) Blood Type Antibody Screen Crossmatch 02/11/21 Range/Units 10:38 WBC (4.8-10.8) K/uL RBC (4.2-5.4) M/uL Hgb (12.0-16.0) g/dL Hct (37-47) % MCV (80-100) fL MCH (25-34) pg MCHC (32-36) g/dL RDW Std Deviation (36.4-46.3) fL RDW Coeff of Tatiana (11.5-14.5) % Plt Count (130-400) K/uL MPV (7.4-10.4) fL Immature Gran % (Auto) % Neut % (Auto) % Lymph % (Auto) % [place] % (Auto) % Eos % (Auto) % Baso % (Auto) % Neut # (Auto) (1.4-6.5) K/uL Lymph # (Auto) (1.2-3.4) K/uL [place] # (Auto) (0.11-0.59) K/uL Eos # (Auto) (0-0.5) K/uL Baso # (Auto) (0-0.2) K/uL Immature Gran # (Auto) (0.00-0.02) K/uL Microcytosis PT (9.0-12.0) Seconds INR (0.9-1.1) APTT (21.0-31.0) Seconds PTT Ratio Sodium (136-145) mmol/L Potassium (3.5-5.1) mmol/L Chloride (98-107) mmol/L Carbon Dioxide (21-32) mmol/L Anion Gap (3-11) BUN (7-18) mg/dl Creatinine (0.6-1.2) mg/dl Est Cr Clr Drug Dosing ml/min Est GFR ( Amer) ml/min Est GFR (Non-Af Amer) ml/min BUN/Creatinine Ratio (10-20) Glucose (70-99) mg/dl Estimat Average Glucose Hemoglobin A1c Calcium (8.5-10.1) mg/dl Iron (35-150) mcg/dl TIBC (250-450) mcg/dl Transferrin (200-360) mg/dl Ferritin (8-388) ng/ml Total Bilirubin (0.2-1) mg/dl AST (15-37) U/L ALT (12-78) U/L Alkaline Phosphatase (45-117) U/L Total Protein (6.4-8.2) gm/dl Albumin (3.4-5.0) gm/dl Globulin (2.5-4.0) gm/dl Albumin/Globulin Ratio (0.9-2) Vitamin B12 (193-986) pg/ml Folate (>5.38) ng/ml COVID-19 Eval Order SARS-CoV-2 (PCR) (Negative) Blood Type A Positive Antibody Screen NEGATIVE Crossmatch See Detail Medications Administered Current Inpatient Medications Acetaminophen (Acetaminophen 325 Mg Tab) 650 mg PO Q4H PRN PRN Reason: Pain or Fever Stop: 03/13/21 16:57 Dextrose (Dextrose 50% 50 Ml Syringe) 25 - 50 ml IV UD PRN; Protocol PRN Reason: Hypoglycemia Protocol Stop: 03/13/21 16:57 Fluticasone Propionate (Fluticasone Propionate Na Spr 16 Gm Btl) 2 sprays ARCHIE QAM [facility] Stop: 03/14/21 08:59 Last Admin: 02/12/21 08:45 Dose: 2 sprays Documented by: Glucagon (Glucagon For Inj 1 Mg Vial) 1 mg SQ UD PRN; Protocol PRN Reason: Hypoglycemia Protocol Stop: 03/13/21 16:57 Glucose (Glucose 10 Tabs/Tube) 4 - 8 tabs PO UD PRN; Protocol PRN Reason: Hypoglycemia Protocol Stop: 03/13/21 16:57 Glucose (Glucose 40% Gel 15 Gm Tube) 15 - 30 gm PO UD PRN; Protocol PRN Reason: Hypoglycemia Protocol Stop: 03/13/21 16:57 Sodium Chloride (Nss) 250 mls @ 15 mls/hr IV .[id number] PRN PRN Reason: For Transfusion Stop: 03/13/21 16:57 Pantoprazole Sodium 40 mg/ (Syringe) 10 mls @ 5 mls/min IV DAILY@1100 [facility] Stop: 03/13/21 17:14 Last Admin: 02/11/21 18:55 Dose: 5 mls/min Documented by: Sodium Chloride (Nss 1000ml) 1,000 mls @ 80 mls/hr IV .[id number] MARTHA Stop: 02/12/21 17:57 Last Infusion: 02/12/21 08:46 Dose: 80 mls/hr Documented by: Sodium Chloride (Nss) 250 mls @ 15 mls/hr IV .[id number] PRN PRN Reason: For Transfusion Stop: 02/12/21 09:28 Furosemide 20 mg/ Syringe 2 mls @ 4 mls/min IV ONE ONE Stop: 02/12/21 14:31 Insulin Aspart (Insulin Aspart 100 Units/Ml 3 Ml Pen) 0 units SC ACHS [facility] Stop: 03/13/21 17:14 Last Admin: 02/11/21 20:14 Dose: Not Given Documented by: Levothyroxine Sodium (Levothyroxine Sodium 50 Mcg Tablet) 50 mcg PO SuTh@0630 [facility] Stop: 03/17/21 06:29 Levothyroxine Sodium (Levothyroxine Sodium 25 Mcg Tablet) 25 mcg PO MoTuWeFrSa@0630 [facility] Stop: 03/15/21 06:29 Miscellaneous (Carbohydrates For Hypoglycemia ) 15 - 30 gm PO UD PRN PRN Reason: Hypoglycemia Protocol Stop: 03/13/21 16:57 Ondansetron HCl (Ondansetron Inj 2 Mg/Ml 2 Ml Vial) 4 mg IV Q6H PRN PRN Reason: Nausea Stop: 03/13/21 16:57 Potassium Citrate (Potassium Citrate 10 Meq Tab) 10 meq PO BID [facility] Stop: 03/15/21 08:59 Prazosin HCl (Prazosin Hcl 1 Mg Cap) 1 mg PO [facility] Stop: 03/13/21 20:59 Last Admin: 02/11/21 21:00 Dose: 1 mg Documented by: Pregabalin (Pregabalin 50 Mg Cap) 50 mg PO QAM [facility] Stop: 03/15/21 08:59 Ropinirole HCl (Ropinirole Hcl 1 Mg Tablet) 4 mg PO [facility] Stop: 03/13/21 21:59 Last Admin: 02/11/21 23:00 Dose: 4 mg Documented by: Tramadol HCl (Tramadol Hcl 50 Mg Tablet) 50 mg PO TID PRN PRN Reason: Pain Stop: 03/13/21 20:59 Last Admin: 02/12/21 06:49 Dose: 50 mg Documented by: Trazodone HCl (Trazodone Hcl 50 Mg Tab) 50 mg PO [facility] Stop: 03/13/21 20:59 Last Admin: 02/11/21 22:26 Dose: 50 mg Documented by: (1) Anemia Anemia type: unspecified type Qualified Code(s): D64.9 - Anemia, unspecified
[2021-02-12] MEDS ORDERED: FLUTICASONE PROPIONATE NA SPR 16 GM BTL NAE SCH (09:00)
[2021-02-12 09:09] LABS: Estimated Average Glucose 120 mg/dl; Hemoglobin A1C 5.8 % (4.5-5.6)
[2021-02-12] MEDS: INSULIN ASPART 100 UNITS/ML 3 ML PEN SC SCH ×3 (09:28→17:44)
--- NOTE | 2021-02-12 09:45 | Gastroenterology Progress Note ---
Date of Service February 12, 2021 Assessment & Plan (1) Anemia: Plan: Pt is a 75 y/o female who was supposed to have outpt EGD/Colonoscopy eval for anemia, found to have Hgb 6 prior to her procedure yesterday and admitted for blood transfusion. Received 3U PRBC transfusion overnight and Hgb up to 9 currently. She is w/o jagjit s/s of GI bleeding, abd exam benign today - Keep NPO - Plan for EGD/Colonoscopy by Dr. Raymundo today - Monitor blood ct and transfuse prn Admission and Anticipated Discharge Date Admission Date: February 11, 2021 Supervising Physician Co-Signing Physician Notes I saw and evaluated the patient. We are planning to do upper endoscopy and colonoscopy today as requested by Dr. Horton. We have discussed the risks and benefits of the procedures to include bleeding, infection, perforation, pain. The patient was admitted due to severe anemia, no obvious GI source has been identified in the past. The patient does have a history of a subtotal gastrectomy as result of peptic ulcer disease. Physical exam Thin female in no obvious distress, no scleral icterus No abdominal tenderness Impression: Patient with a history of iron deficiency anemia of unclear etiology. We will proceed with upper endoscopy and colonoscopy as scheduled by her regular GI provider. Subjective Pt received 3U PRBC transfusion overnight. Hgb 6 -> 9.6. She denies any abd pain, n/v, rectal bleeding. RN charted pt refused Miralax last night but pt denies this, states must be an error. Review of Systems Review of Systems: All systems reviewed & are unremarkable except as noted in HPI & below Physical Exam Constitutional: WD/WN, vitals as above well groomed, cooperative and comfortable Eyes: PERRL, conjunctivae normal, anicteric sclerae ENMT: external ear and nose normal, oropharynx normal Respiratory: normal respiratory effort, lungs clear to auscultation Cardiovascular: RRR, no murmur, no edema Gastrointestinal (Abdomen): normal bowel sounds, soft, nontender, no hepatosplenomegaly Musculoskeletal: L foot w edema Skin: no rashes, warm and dry no jaundice Psychiatric: A+Ox3, euthymic affect Lymphatic: no lymphedema Results & Data ([facility]) Vital Signs (Past 12 Hours) Vital Signs Temp Pulse Pulse Resp BP BP BP 02/12/21 07:41 36.9 C 67 16 137/76 02/12/21 06:48 36.6 C 64 20 133/73 02/12/21 06:05 36.6 C 63 16 137/71 02/12/21 06:04 36.6 C 63 16 137/71 02/12/21 05:05 36.6 C 62 16 133/74 02/12/21 04:39 36.6 C 72 20 134/74 02/12/21 04:35 36.6 C 72 20 134/74 02/12/21 04:20 36.8 C 65 18 127/86 02/12/21 04:02 36.7 C 64 18 149/71 H 02/12/21 03:31 36.8 C 57 L 16 121/68 02/12/21 02:27 36.6 C 65 16 128/69 02/12/21 01:29 36.5 C 64 16 109/70 02/12/21 01:00 36.6 C 65 16 105/63 02/12/21 00:47 36.6 C 74 18 105/62 02/12/21 00:24 36.7 C 69 18 106/55 L 02/11/21 22:39 36.7 C 74 16 128/61 Pulse Ox 02/12/21 07:41 99 02/12/21 06:48 98 02/12/21 06:05 99 02/12/21 06:04 99 02/12/21 05:05 99 02/12/21 04:39 96 02/12/21 04:35 96 02/12/21 04:20 98 02/12/21 04:02 99 02/12/21 03:31 02/12/21 02:27 98 02/12/21 01:29 98 02/12/21 01:00 99 02/12/21 00:47 99 02/12/21 00:24 96 02/11/21 22:39 97 (1) Anemia Anemia type: unspecified type Qualified Code(s): D64.9 - Anemia, unspecified
[2021-02-12] MEDS: PANTOprazole 40 MG in SYRINGE 0 ML IV SCH (11:55)
[2021-02-12] MEDS ORDERED: FUROSEMIDE 20 MG in SYRINGE 0 ML IV ONE (14:30)
[2021-02-12] MEDS ORDERED: ACETAMINOPHEN 1000 MG/100 ML IV IV ONE (15:11)
--- NOTE | 2021-02-12 15:48 | Anesthesiology Consultation ---
Date of Service February 12, 2021 Assessment & Plan Chart Review Chart Review: Acceptable Risk for Surgery Consults Requested none History Surgery Operation Date: 02/12/21 17:15 Proposed Procedures p Colonoscopy EGD Dr Zackary Raymundo, DO Height/Weight Height: 5 ft 6 in Weight: 69.8 kg Allergies Allergy/AdvReac Type Severity Reaction Status Date / Time Sulfa (Sulfonamide Allergy Intermediate HIVES Verified 02/11/21 10:39 Antibiotics) metoclopramide AdvReac Intermediate depression Verified 02/11/21 10:39 Medications Home Medications Medication Instructions Recorded Confirmed Last Taken fluticasone propionate 50 2 spray INTRANASAL QAM 10/15/18 02/11/21 02/10/21 08:00 mcg/actuation nasal spray,suspension levothyroxine 50 mcg tablet 25 mcg PO .MON,TUE,WED,FRI,SAT 10/15/18 02/11/21 02/10/21 08:00 levothyroxine 50 mcg tablet 50 mcg PO .EMILIA DORADO 10/15/18 02/11/21 02/08/21 08:00 potassium citrate 10 mEq (1,080 10 meq PO BID 10/15/18 02/11/21 02/10/21 18:00 mg) tablet,extended release trazodone 50 mg tablet 50 mg PO HS 10/15/18 02/11/21 02/10/21 22:00 prazosin 1 mg capsule 1 mg PO HS 06/17/20 02/11/21 02/10/21 22:00 ropinirole 4 mg tablet,extended 4 mg PO 06/17/20 02/11/21 02/10/21 18:00 release 24 hr pregabalin 25 mg capsule 50 mg PO QAM 12/26/20 02/11/21 02/10/21 08:00 tramadol 50 mg tablet 50 mg PO Q4H PRN #40 tab 12/28/20 02/11/21 02/10/21 16:00 Wheelchair (Manual) #1 ea 01/01/21 02/11/21 Unknown Active Medications Generic Name Dose Route Start Last Admin Trade Name Freq PRN Reason Stop Dose Admin Fluticasone Propionate 2 sprays 02/12/21 09:00 02/12/21 08:45 Fluticasone Propionate Na Spr 16 Gm Btl ARCHIE 03/14/21 08:59 2 sprays QAM MARTHA Administration Pantoprazole Sodium 40 mg/ 10 mls @ 5 mls/min 02/11/21 17:15 02/12/21 11:55 Syringe IV 03/13/21 17:14 5 mls/min DAILY@1100 MARTHA Administration Sodium Chloride 1,000 mls @ 80 mls/hr 02/11/21 16:58 02/12/21 15:20 Nss 1000ml IV 02/12/21 17:57 Infused .[id number] MARTHA Infusion Insulin Aspart 0 units 02/11/21 17:15 02/12/21 12:26 Insulin Aspart 100 Units/Ml 3 Ml Pen SC 03/13/21 17:14 Not Given ACHS MARTHA Prazosin HCl 1 mg 02/11/21 21:00 02/11/21 21:00 Prazosin Hcl 1 Mg Cap PO 03/13/21 20:59 1 mg HS MARTHA Administration Ropinirole HCl 4 mg 02/11/21 22:00 02/11/21 23:00 Ropinirole Hcl 1 Mg Tablet PO 03/13/21 21:59 4 mg HS MARTHA Administration Tramadol HCl 50 mg 02/11/21 20:47 02/12/21 06:49 Tramadol Hcl 50 Mg Tablet PO 03/13/21 20:59 50 mg TID PRN Administration Pain Trazodone HCl 50 mg 02/11/21 21:00 02/11/21 22:26 Trazodone Hcl 50 Mg Tab PO 03/13/21 20:59 50 mg HS MARTHA Administration NPO Date Last Intake of Fluids: 02/11/21 Time Last Intake of Fluids: 15:00 Last Intake of Fluids Comment: boullion Date Last Intake of Solids: 02/09/21 Time Last Intake of Solids: 12:00 Past Medical History Medical History Anemia due to chronic kidney disease Arthritis CKD (chronic kidney disease), stage III History of COVID-12 JUNE 2020 (HOSPITALIZED AT [facility]) History of depression History of TMJ disorder Hx of gastric ulcer RESULTING IN GASTRECTOMY Hx of migraines Hx of sleep apnea RESOLVED 2007 HX: breast cancer Hypothyroidism Lyme disease Macular degeneration Polycystic ovarian disease RLS (restless legs syndrome) Spinal stenosis Past Family History Family History Father Atrial fibrillation Other No family history of adverse response to anesthesia Past Surgical History Surgical History H/O Billroth II operation H/O bone marrow transplant 1993 H/O oophorectomy H/O sinus surgery History of ankle surgery LEFT (12/28/20) History of appendectomy History of cataract surgery RT/LEFT History of colonoscopy History of esophagogastroduodenoscopy (EGD) History of tonsillectomy and adenoidectomy History of total right hip replacement Hx of lumpectomy LEFT S/P subtotal gastrectomy D/T GASTRIC ULCERS Social History Smoking Status: Never smoker Hx Alcohol Use: No Hx Substance Use: No substance use type: does not use Physical Exam Vital Signs Last Vital Signs Temp 36.7 C 02/12/21 15:42 Pulse 66 02/12/21 15:42 Resp 16 02/12/21 15:42 BP 157/71 H 02/12/21 15:42 Pulse Ox 99 02/12/21 15:42 Testing Laboratory Results 02/12/21 07:15 02/12/21 07:15 PT 9.5 Seconds (9.0-12.0) 02/11/21 10:38 INR 0.9 (0.9-1.1) 02/11/21 10:38 APTT 20.9 Seconds (21.0-31.0) L 02/11/21 10:38 Hemoglobin A1c 5.8 % (4.5-5.6) H 02/12/21 07:15 Blood Type A Positive 02/11/21 10:38 Antibody Screen NEGATIVE 02/11/21 10:38
--- NOTE | 2021-02-12 16:24 | Communication Note ---
Date of Service: February 12, 2021 The patient underwent upper endoscopy and colonoscopy today. The upper endoscopy was normal for her prior gastrectomy but otherwise unremarkable. The colonoscopy was notable for internal hemorrhoids but otherwise unremarkable. The bowel prep was suboptimal and I would recommend a repeat exam in 3 years. There does not appear to be any obvious gastrointestinal blood loss. Perhaps the patient is having problems with absorption coupled with her history of renal insufficiency. GI to sign off, please call with any questions or concerns
--- NOTE | 2021-02-12 16:28 | GI REPORT ---
Patient Name: Gina Brock Procedure Date: 02/12/2021 3:56 PM Date of : 1945 Admit Type: Inpatient Age: 75 Gender: Female Attending MD: Mulugeta Raymundo DO Procedure: Upper GI endoscopy Providers: Mulugeta Raymundo DO Referring MD: Stephane Marin Md, Yuki Horton MD Indications: Iron deficiency anemia Medicines: Monitored Anesthesia Care Complications: No immediate complications. Estimated blood loss: Minimal. Estimated Blood Loss: Estimated blood loss: none. Procedure: Pre-Anesthesia Assessment: - Prior to the procedure, a History and Physical was performed, and patient medications, allergies and sensitivities were reviewed. The patient's tolerance of previous anesthesia was reviewed. - The risks and benefits of the procedure and the sedation options and risks were discussed with the patient. All questions were answered and informed consent was obtained. - Patient identification and proposed procedure were verified prior to the procedure by the physician, the nurse and the collar tailor. The procedure was verified in the procedure room. - Pre-procedure physical examination revealed no contraindications to sedation. - ASA Grade Assessment: III - A patient with severe systemic disease. - After reviewing the risks and benefits, the patient was deemed in satisfactory condition to undergo the procedure. - The anesthesia plan was to use monitored anesthesia care (MAC). - Immediately prior to administration of medications, the patient was re-assessed for adequacy to receive sedatives. - The heart rate, respiratory rate, oxygen saturations, blood pressure, adequacy of pulmonary ventilation, and response to care were monitored throughout the procedure. - The physical status of the patient was re-assessed after the procedure. After obtaining informed consent, the endoscope was passed under direct vision. Throughout the procedure, the patient's blood pressure, pulse, and oxygen saturations were monitored continuously. The Colonoscope was introduced through the mouth, and advanced to the jejunum. The upper GI endoscopy was accomplished without difficulty. The patient tolerated the procedure well. Findings: The examined esophagus was normal. Evidence of a prior subtotal gastrectomy. This was characterized by healthy appearing mucosa. The examined jejunum was normal. Biopsies were taken with a cold forceps for histology. The pathology specimen was placed into Bottle A. Estimated blood loss was minimal. Impression: - Normal esophagus. - A gastroenterostomy was found, characterized by healthy appearing mucosa. - Normal examined jejunum. Biopsied. Recommendation: - Perform a colonoscopy today. - Await pathology results. - Return to referring physician as previously scheduled. Mulugeta Raymundo D.O. Mulugeta Raymundo, DO 02/12/2021 4:27:38 PM This report has been signed electronically. Note Initiated On: 02/12/2021 3:56 PM Number of Addenda: 0 I attest to the content of the Intraoperative Record and orders documented therein, exceptions below {[id number]}
--- NOTE | 2021-02-12 16:30 | GI REPORT ---
Patient Name: Gina Brock Procedure Date: 02/12/2021 3:56 PM Date of : 1945 Admit Type: Inpatient Age: 75 Gender: Female Attending MD: Mulugeta Raymundo DO Procedure: Colonoscopy Providers: Mulugeta Raymundo DO Referring MD: Stephane Marin Md, Yuki Horton MD Indications: Iron deficiency anemia Medicines: Monitored Anesthesia Care Complications: No immediate complications. Estimated blood loss: Minimal. Estimated Blood Loss: Estimated blood loss was minimal. Procedure: Pre-Anesthesia Assessment: - Prior to the procedure, a History and Physical was performed, and patient medications, allergies and sensitivities were reviewed. The patient's tolerance of previous anesthesia was reviewed. - The risks and benefits of the procedure and the sedation options and risks were discussed with the patient. All questions were answered and informed consent was obtained. - Patient identification and proposed procedure were verified prior to the procedure by the physician, the nurse and the classified advertising supervisor. The procedure was verified in the procedure room. - Pre-procedure physical examination revealed no contraindications to sedation. - ASA Grade Assessment: III - A patient with severe systemic disease. - After reviewing the risks and benefits, the patient was deemed in satisfactory condition to undergo the procedure. - The anesthesia plan was to use monitored anesthesia care (MAC). - Immediately prior to administration of medications, the patient was re-assessed for adequacy to receive sedatives. - The heart rate, respiratory rate, oxygen saturations, blood pressure, adequacy of pulmonary ventilation, and response to care were monitored throughout the procedure. - The physical status of the patient was re-assessed after the procedure. After I obtained informed consent, the scope was passed under direct vision. Throughout the procedure, the patient's blood pressure, pulse, and oxygen saturations were monitored continuously. The Colonoscope was introduced through the anus and advanced to the cecum, identified by appendiceal orifice and ileocecal valve. The colonoscopy was performed without difficulty. The patient tolerated the procedure well. The quality of the bowel preparation was adequate to identify polyps. Findings: The perianal and digital rectal examinations were normal. Pertinent negatives include normal sphincter tone. Internal hemorrhoids were found during retroflexion. The hemorrhoids were mild. The exam was otherwise without abnormality. Impression: - Internal hemorrhoids. - The examination was otherwise normal. - No specimens collected. Recommendation: - Advance diet as tolerated today. - Repeat colonoscopy in 3 years because the bowel preparation was suboptimal. - No evidence of gastrointestinal blood loss seen today. Consider further evaluation with a urinalysis. Mulugeta Raymundo D.O. Mulugeta Raymundo, DO 02/12/2021 4:30:26 PM This report has been signed electronically. Note Initiated On: 02/12/2021 3:56 PM Number of Addenda: 0 I attest to the content of the Intraoperative Record and orders documented therein, exceptions below {[id number]}
--- NOTE | 2021-02-12 16:42 | Anesthesiology Progress Note ---
Date of Service February 12, 2021 Anesthesia Post Procedure Vital Signs Vital Signs: Temp Pulse Pulse Pulse Resp BP BP 02/12/21 16:29 66 16 128/63 02/12/21 15:42 36.7 C 66 66 16 157/71 H 02/12/21 07:41 36.9 C 67 16 137/76 02/12/21 06:48 36.6 C 64 20 133/73 02/12/21 06:05 36.6 C 63 16 137/71 02/12/21 06:04 36.6 C 63 16 137/71 02/12/21 05:05 36.6 C 62 16 133/74 02/12/21 04:39 36.6 C 72 20 134/74 02/12/21 04:35 36.6 C 72 20 134/74 02/12/21 04:20 36.8 C 65 18 127/86 02/12/21 04:02 36.7 C 64 18 149/71 H 02/12/21 03:31 36.8 C 57 L 16 121/68 02/12/21 02:27 36.6 C 65 16 128/69 02/12/21 01:29 36.5 C 64 16 109/70 02/12/21 01:00 36.6 C 65 16 105/63 02/12/21 00:47 36.6 C 74 18 105/62 02/12/21 00:24 36.7 C 69 18 106/55 L 02/11/21 22:39 36.7 C 74 16 02/11/21 20:59 129/70 02/11/21 17:52 36.9 C 60 20 BP Pulse Ox 02/12/21 16:29 99 02/12/21 15:42 99 02/12/21 07:41 99 02/12/21 06:48 98 02/12/21 06:05 99 02/12/21 06:04 99 02/12/21 05:05 99 02/12/21 04:39 96 02/12/21 04:35 96 02/12/21 04:20 98 02/12/21 04:02 99 02/12/21 03:31 02/12/21 02:27 98 02/12/21 01:29 98 02/12/21 01:00 99 02/12/21 00:47 99 02/12/21 00:24 96 02/11/21 22:39 128/61 97 02/11/21 20:59 02/11/21 17:52 134/79 100 Pain Intensity Left Ankle: Pain Intensity: 6 Transfer of Care Handoff Completed per policy Notes Mental Status: alert / awake / arousable and participated in evaluation Patient Amnestic to Procedure: Yes Nausea / Vomiting: adequately controlled Pain: adequately controlled Airway Patency, RR, SpO2: stable & adequate BP & HR: stable & adequate Hydration State: stable & adequate Anesthetic Complications: no major complications apparent
[2021-02-12 16:51] VITALS: O2SAT 100
--- NOTE | 2021-02-12 16:54 | Discharge Summary ---
Date of Service February 12, 2021 Admission HPI Per Admitting Provider Pt is 75 y/o F with PMH GERD, anemia of chronic disease, iron deficiency anemia (received iron IV on 01/30/21), h/o PUD s/p Billroth 2 and had post op gastroparesis & failed treatment then had gastrectomy in 2010, h/o Breast cancer s/p surgery and chemo, CKD III, CLEMENTINA, depression, hypothyroidism, spinal stenosis, RLS presented to ER for abnormal labs-anemia. Patient with progressive anemia over the past month. Baseline hemoglobin 9-10. In December hemoglobin of 8, 2 weeks ago hemoglobin is 7. Today patient was to have endoscopy and colonoscopy secondary to anemia however was found to have hemoglobin of 6.3 and was referred to ER for further treatment. Patient completed colonoscopy prep yesterday. Last ate on 02/09/2021 and had sip of water this morning. States yesterday was feeling tired, is unsure if was seco ndary to completing colonoscopy prep. Denies shortness of breath, exertional shortness of breath, chest pain, dizziness, syncope. Denies melena, hematochezia. Patient has chronic poor appetite. She states she drinks 1 boost a day. Patient with recent left trimalleolar fracture and repair. She had cast removed 2 days ago. Patient states noted edema to left lower leg. This morning she had venous Doppler which was negative for DVT. Denies fever/chills, diaphoresis, N/V/D/C, LEARY, vision changes, neck pain, orthopnea, palpitations, cough, sore throat, choking, otalgia, rhinorrhea, abdominal pain, paresthesias, weakness, extremity weakness, rashes, urinary symptoms. Today in ER vitals stable, H/H: 6.3/21. 1 unit PRBC started in ER. Patient being admitted for further treatment. Admission Exam Per Admitting Provider General: no distress, WDWN Head: normocephalic, atraumatic Eyes: PERRL, EOM's intact, conjunctiva non-injected, anicteric ENT: normal inspection external ears, nose, mucous membranes moist Neck: supple, trachea midline Lungs: clear, no respiratory distress, no wheezing/rhonchi/rales CV: RRR, no murmur, no pretibial edema Abd: normal BS, soft, non-tender Ext: no cyanosis or erythema. LLE +edema, non-tender, left ankle with healed incision, no calf tenderness Neuro: A&O x 3, no focal deficits noted, normal affect Skin: warm, dry Principal Diagnosis Acute on chronic anemia, anemia of chronic disease, iron deficiency anemia, not secondary to GI bleed Discharge Exam General: no distress, WDWN Head: normocephalic, atraumatic Eyes: PERRL, EOM's intact, conjunctiva non-injected, anicteric ENT: normal inspection external ears, nose, mucous membranes moist Neck: supple, trachea midline Lungs: clear, no respiratory distress, no wheezing/rhonchi/rales CV: RRR, no murmur, no pretibial edema Abd: normal BS, soft, non-tender Ext: no cyanosis or erythema. LLE +edema (improved), non-tender, left ankle with healed incision, no calf tenderness Neuro: A&O x 3, no focal deficits noted, normal affect Skin: warm, dry Discharge Data Allergies Allergy/AdvReac Type Severity Reaction Status Date / Time Sulfa (Sulfonamide Allergy Intermediate HIVES Verified 02/11/21 10:39 Antibiotics) metoclopramide AdvReac Intermediate depression Verified 02/11/21 10:39 Consultations 02/11/21 12:05 ED Decision to Admit Stat 02/11/21 13:05 Consult Gastroenterology Routine Procedures Performed Operation Date: 02/12/21 17:15 Actual Procedures p EGD Biopsy Cytology - Mulugeta Raymundo DO s Colonoscopy - Mulugeta Raymundo DO Hospital Course (1) Anemia: Acute on Chronic Anemia. Anemia chronic disease, iron deficiency anemia Pt is 75 y/o F with PMH GERD, anemia of chronic disease, iron deficiency anemia (received iron IV on 01/30/21), h/o PUD s/p Billroth 2 and had post op gastroparesis & failed treatment then had gastrectomy in 2010, h/o Breast cancer s/p surgery and chemo, CKD III, CLEMENTINA, depression, hypothyroidism, spinal stenosis, RLS presented to ER for abnormal labs-anemia. Patient with progressive anemia over the past month. Baseline hemoglobin 9-10. In December hemoglobin of 8, 2 weeks ago hemoglobin is 7. Patient felt fatigued yesterday. Today patient was to have endoscopy and colonoscopy secondary to anemia however was found to have hemoglobin of 6.3 and was referred to ER for further treatment. Today in ER vitals stable, H/H: 6.3/. Received total of 3 units of PRBCs, since admission H&H every 6 hours Fecal occult pending Anemia labs. In November patient with ferritin of 14. Patient completed colonoscopy prep IVF GI consult. Plan to do endoscopy/colonoscopy today. EGD (02/12/21) -normal esophagus, gastro enterostomy was found, characterized by healthy-appearing mucosa. Normal examined jejunum. Biopsied. Await pathology results. Colonoscopy (02/12/2021) -internal hemorrhoids. The examination was otherwise normal. No specimens collected. Repeat colonoscopy in 3 years because the bowel preparation was suboptimal. No evidence of gastrointestinal blood loss seen today. Consider further evaluation with a urinalysis. CKD III Cr: 1.12. Baseline Cr~1.4 Avoid nephrotoxic agents when possible Monitor renal functions Prediabetes Diet controlled A1c in am Novolog sliding scale per protocol Hypothyroidism Plan to resume levothyroxine on 02/13/21 Depression Plan to resume Effexor on 02/13/21 Recent left trimalleolar fracture Had cast removed 2 days ago by Ortho Patient having lower leg edema. Had venous Doppler on day of admission which was negative for DVT Edema improved today DVT Prophylaxis SCDs Full Code as per discussion with pt Follows with Dr Bishop for routine care Total Time Total Time Spent Total Time Spent (In Minutes): 35 Discharge Plan Discharge Items Patient Disposition: Home - Self-Care Reason For Visit: ANEMIA Discharge Diagnosis: Acute on chronic anemia, anemia of chronic disease, iron deficiency anemia, not secondary to GI bleed Activity: Per Instructions section Non-emergency contact: Primary Care Provider and Specialist Call non-emergency contact if: you have any medication questions and your symptoms worsen Follow-up/Referrals: Saritha Bishop DO [Primary Care Provider] - (Date & Time 02/17/2021 2:00 PM Provider Aubrey Orona DO Department [facility] ) Diet: Regular Addtl Attending Provider Instructions: Follow-up with your primary care doctor, the appointment was scheduled for you for February 17. Your upper endoscopy was unremarkable, however it is recommended to repeat colonoscopy in 3 years as the prep was not ideal. There was no clear bleeding identified. Biopsy was performed during upper endoscopy, results will be communicated to you. Your primary care doctor may check your urine for possible blood, at your next appointment. Pending Studies at Discharge: Yes Studies:: Biopsy from EGD Stand-Alone Forms: [facility], Smoking Cessation Medications and DC Order Prescriptions: Continued (DME) Wheelchair (Manual) Device See Rx Instructions .MEDSUPPLY Qty: 1 RF: 0 trazodone 50 mg tablet 50 mg PO HS RF: 0 levothyroxine 50 mcg tablet 50 mcg PO .SUN,THUR RF: 0 levothyroxine 50 mcg tablet 25 mcg PO .MON,TUE,WED,FRI,SAT RF: 0 potassium citrate 10 mEq (1,080 mg) Tablet Extended Release 10 meq PO BID RF: 0 fluticasone propionate 50 mcg/actuation spray,suspension 2 spray intranasal QAM RF: 0 prazosin 1 mg capsule 1 mg PO HS RF: 0 ropinirole 4 mg tablet extended release 24 hr 4 mg PO HS RF: 0 pregabalin 25 mg capsule 50 mg PO QAM RF: 0 tramadol 50 mg Tablet 50 mg PO Q4H PRN (Reason: pain) Qty: 40 RF: 0 Discharge Orders: Discharge Order (Routine); Ordered 02/12/21 Ordered By: Stephane Marin Admission Data Admit Date/Time: 02/11/21 12:32 Attending Provider: Stephane Marin Admit Provider: Enmanuel Young Primary Care Provider: Saritha Bishop Other Providers: Mulugeta Raymundo ; Enmanuel Young
[2021-02-12 17:13] VITALS: BP 148/68; PULSE 61; TEMP 97.7
[2021-02-13] MEDS ORDERED: LEVOTHYROXINE SODIUM 25 MCG TABLET PO SCH (06:30)
[2021-02-13] MEDS ORDERED: PREGABALIN 50 MG CAP PO SCH (09:00)
[2021-02-13] MEDS ORDERED: POTASSIUM CITRATE 10 MEQ TAB PO SCH (09:00)
[2021-02-15] MEDS ORDERED: LEVOTHYROXINE SODIUM 50 MCG TABLET PO SCH (06:30)
== END 2021-02-12 18:22 | disposition home or self-care (01) | DRG 812 ==
LOC: ED 10:01 → 3N 12:32 → SUATTDRO 12:32 → 3N 16:00

== ENCOUNTER 2022-07-09 10:34 | Inpatient (IN) ==
[2022-07-09] MEDS ORDERED: PANTOprazole 80 MG in DEXTROSE 5% 100 ML IV STA (10:57)
--- NOTE | 2022-07-09 11:08 | XRay Report ---
XR chest 1V portable CLINICAL HISTORY: weak, dizzy COMPARISON STUDY: Chest radiograph February 11, 2021. FINDINGS: Lung volumes are normal. Lungs are clear. Calcified density projecting over the right lower lung is likely within the anterior right fifth rib. This is unchanged and benign. There is no pneumo thorax or pleural effusion. Cardiac size is normal. Mediastinal contours are normal. There is no evid ence for pulmonary edema. Cholecystectomy clips are incidentally noted. IMPRESSION: No acute cardiopulmonary findings. ACT 112: Negative or not required by law. Electronically signed by: Alexandro Dodson M.D. 07/09/2022 11:06 AM
--- NOTE | 2022-07-09 11:19 | Emergency Department Note ---
Impression & Plan ABLA (acute blood loss anemia), CKD (chronic kidney disease), stage III, Weakness, Melena ED Provider Note Provider: Noman Oshea MD DATE OF SERVICE: 07/09/2022 CHIEF COMPLAINT: Weak/dizzy, tarry stools HISTORY OF PRESENT ILLNESS: Patient is a 76-year-old female history of CKD, hypothyroidism, subtotal gastrectomy, breast cancer, and bone marrow transplant presenting here today reporting over the past week and a half went from having regular loose stools to more some constipation. States the last day or 2 has been having some black tarry stools without red blood. States she did use some bowel prep [id number] medications to help her affect a bowel movement discussion with her doctor and had a large bowel movement on Tuesday. States she is just not feeling very hungry and feels uncomfortable and she states is not eating much. Has been hydrating. Denies significant nausea or vomiting. Denies chest pain to me. Denies any syncope or near syncope. Denies use of ant icoagulants or aspirin. States she does not currently have heartburn and is not on any acid reducing medications for her stomach but again has a history of a prior subtotal gastrectomy or prior ulcers. Relates that these occurred around the time she was some years ago. Gastric surgery was at [facility] in 2010. REVIEW OF SYSTEMS: A total of 10 review of systems was obtained and negative except as stated above in the HPI. PAST MEDICAL HISTORY: As noted above MEDICATIONS: Reviewed home medications SOCIAL HISTORY: Denies alcohol or smoking use. PHYSICAL EXAM: GENERAL: alert and oriented in no acute distress on stretcher Head: normocephalic and atraumatic EYES: No injection, discharge or icterus. NECK: Trachea midline. LUNGS: Airway patent. No retractions. Breath sounds clear HEART: Regular rate and rhythm. No chest wall tenderness ABDOMEN: Soft and non-tender, without guarding or rebound. SKIN: Acyanotic, warm, dry, without rashes EXTREMITIES: Without swelling, tenderness or deformity NEUROLOGICAL: No focal deficits. No aphasia. No facial droop or slurred speech. Ambulatory. EK bpm normal sinus rhythm. No PVC or PAC. QTc 459. No acute ST segment elevation or depression. CONTINUOUS CARDIAC MONITORING: was ordered and showed a heart rate of 80s-90s bpm in normal sinus rhythm Patient's laboratory studies and imaging reviewed. Differential includes Diverticulosis, AVM, coagulopathy, colitis, inflammatory bowel disease, malignancy, Rosalie-Farley tear, esophagitis, peptic ulcer disease, variceal bleed, gastritis, epistaxis, fissure, hemorrhoids, as well as other pathologies. IMPRESSION/MEDICAL DECISION MAKING: Patient presents complaining of some black tarry stool but not diarrhea or bright red blood. Stool sample since she collected and brought in a container from last night is Hemoccult positive. Without significant abdominal te nderness. Significant past medical history including subtotal gastrectomy. We will give a dose of Protonix. Basic blood work to be obtained. Given surgical history of complete a CT scan of the abdomen pelvis without contrast given significant history of CKD. EKG without significant changes. Negative COVID test. CKD not that far off baseline. Significant anemia. Patient consented for blood and blood transfusion ordered. Given this patient require admission given the Hemoccult positive stools and significant anemia. Hemoglobin from June [address] scan report questions possible cecum and proximal ascending colon thickening versus underdistention. Discussed with oncology /hematology team and fusion plans for 3 units of leuk reduced packed red blood cells. Discussed with her further care here at the hospital and the hospitalist team was contacted. DIAGNOSIS: Acute blood loss anemia, melena, weakness DISPOSITION: Hospitalist will evaluate Patient was agreeable with this plan. Critical Care I have personally spent 32 minutes of critical care time in the direct management of this patient. This includes bedside care, interpretation of diagnostic studies, and testing, discussion with consultants, patient, and other required patient management activities. These 32 minutes is in excess of all separately billable procedures. Past Med/Surg History Medical History (Updated 07/09/22 @ 15:32 by Latha Castañeda PA-C) Anemia due to chronic kidney disease pt states has issues w/ anemia last blood transfusion was 10/2021 after back sx Arthritis CKD (chronic kidney disease), stage III Diabetes mellitus, type II History of COVID-12 JUNE 2020 (HOSPITALIZED AT [facility])- denies current issues History of depression History of TMJ disorder HTN (hypertension) Hx of gastric ulcer RESULTING IN GASTRECTOMY Hx of migraines Hx of sleep apnea RESOLVED 2007 HX: breast cancer 1993- lumpectomy and chemo Hypothyroidism Lyme disease Macular degeneration Polycystic ovarian disease RLS (restless legs syndrome) Spinal stenosis Surgical History H/O Billroth II operation H/O bone marrow transplant 1993 H/O oophorectomy H/O sinus surgery History of ankle surgery LEFT (12/28/20) History of appendectomy History of cataract surgery RT/LEFT History of colonoscopy History of esophagogastroduodenoscopy (EGD) History of tonsillectomy and adenoidectomy History of total right hip replacement Hx of lumpectomy LEFT S/P spinal surgery 09/20[facility] S/P subtotal gastrectomy D/T GASTRIC ULCERS Family History Father Atrial fibrillation Other No family history of adverse response to anesthesia Social History Smoking Status: Never smoker Second Hand Exposure: No; Hx Alcohol Use: No Hx Substance Use: No Preferred Language: Slovenian Communication Ability: Effective Full Time Paramedic Required: No Beliefs That Will Affect Care: None marital status: / marital status details: within last 8-9 mo Current Living Situation: Alone Other Information That Helps Us Care for You: No Feels Safe at Home: Yes Safety Concerns: Feels Safe At This Time Assistive Devices: Glasses Allergies Allergies Allergy/AdvReac Type Severity Reaction Status Date / Time Sulfa (Sulfonamide Allergy Intermediate HIVES Verified 02/24/22 07:05 Antibiotics) metoclopramide AdvReac Intermediate depression Verified 02/24/22 07:05 Home Meds Home Medications Medication Instructions Recorded Confirmed fluticasone propionate 50 2 spray intranasal QAM 10/15/18 07/09/22 mcg/actuation nasal spray,suspension levothyroxine 50 mcg tablet 25 mcg PO 5XWK 10/15/18 07/09/22 levothyroxine 50 mcg tablet 50 mcg PO 2XWK 10/15/18 07/09/22 trazodone 50 mg tablet 50 mg PO HS 10/15/18 07/09/22 prazosin 1 mg capsule 1 mg PO QPM 06/17/20 07/09/22 ropinirole 4 mg tablet,extended 4 mg PO HS 06/17/20 07/09/22 release 24 hr amlodipine 5 mg tablet 5 mg PO QAM 02/11/22 07/09/22 multivitamin 1 tab PO QAM 02/11/22 07/09/22 omega-3 fatty acids 1,000 mg PO DAILY 02/11/22 07/09/22 cyclosporine 0.05 % eye drops in a 1 drp ophthalmic (eye) Q12H 07/09/22 07/09/22 dropperette (Restasis) ferrous sulfate 15 mg iron (75 10 ml PO DAILY 07/09/22 07/09/22 mg)/mL oral syringe (ORAL USE) food supplemt, lactose-reduced 1 ea PO DAILY 07/09/22 07/09/22 (Ensure oral liquid) magnesium malate, chelate 1,000 mg PO DAILY 07/09/22 07/09/22 metformin 500 mg tablet,extended 500 mg PO DAILY 07/09/22 07/09/22 release 24 hr [id number]-var-[id number] 5 mg-zeaxanth 1 cap PO DAILY 07/09/22 07/09/22 1 mg-bilberry 7.5 mg-herbal capsule (Macular Health Formula) tramadol 50 mg tablet 50 mg PO Q6H PRN Severe Pain 07/09/22 07/09/22 (Scale Score 7-10) Previous Rx's Medication Instructions Recorded Wheelchair (Manual) #1 ea 01/01/21 Results & Data (ED) Vital Signs Vital Signs - 24 hr 07/09/22 10:37 07/09/22 12:36 07/09/22 11:16 Temperature 36.2 C L 36.7 C Temperature Source Temporal Artery Scan Oral Pulse Rate 120 H 119 H 96 H Pulse Rate from SpO2 Sensor Pulse Rhythm Regular Pulse Strength Normal Respiratory Rate 20 18 19 Respiratory Effort / Characteristics Non-Labored Spontaneous Respiratory Depth Normal Respiratory Pattern Regular Blood Pressure 163/72 H 140/92 140/63 Blood Pressure Mean 102 108 88 Blood Pressure Position Sitting Pulse Oximetry 98 99 95 Oxygen Delivery Method Room Air Sepsis Recent Fever Within 48 Hours No Sepsis New/Unexplained Change in Mental Status No Sepsis Action Taken by Nursing No Action Required 07/09/22 11:30 07/09/22 12:54 07/09/22 13:09 Temperature 36.8 C 36.8 C Temperature Source Oral Oral Pulse Rate 92 H 86 88 Pulse Rate from SpO2 Sensor 90 Pulse Rhythm Regular Pulse Strength Normal Respiratory Rate 22 18 18 Respiratory Effort / Characteristics Respiratory Depth Respiratory Pattern Blood Pressure 131/52 L 113/76 Blood Pressure Mean 78 88 Blood Pressure Position Pulse Oximetry 100 99 99 Oxygen Delivery Method Sepsis Recent Fever Within 48 Hours Sepsis New/Unexplained Change in Mental Status Sepsis Action Taken by Nursing Laboratory Data Result diagrams: 07/09/22 11:05 07/09/22 11:05 Lab Results 07/09/22 07/09/22 07/09/22 Range/Units 11:05 11:05 11:05 WBC 6.69 (4.8-10.8) K/ul RBC 1.94 L (3.93-5.22) M/uL Hgb 5.6 L* (12.0-16.0) g/dl Hct 17.4 L* (34.1-44.9) % MCV 89.7 (80.0-100.0) fL MCH 28.9 (25.0-34.0) pg MCHC 32.2 (32.0-36.0) g/dL RDW Std Deviation 50.2 H (36.4-46.3) fL RDW Coeff of Tatiana 15.8 H (11.5-14.5) % Plt Count 370 (130-400) K/uL MPV 9.7 (9.4-12.3) fL Immature Gran % (Auto) 0.1 % Neut % (Auto) 69.3 % Lymph % (Auto) 23.2 % Lasalle % (Auto) 5.8 % Eos % (Auto) 1.0 % Baso % (Auto) 0.6 % Neut # (Auto) 4.63 (1.4-6.5) K/uL Lymph # (Auto) 1.55 (1.2-3.4) K/uL Lasalle # (Auto) 0.39 (0.24-0.82) K/uL Eos # (Auto) 0.07 (0-0.50) K/uL Baso # (Auto) 0.04 (0-0.2) K/uL Immature Gran # (Auto) 0.01 (0.00-0.02) K/uL Polychromasia 1+ PT 10.1 (9.0-12.0) Seconds INR 0.9 (0.9-1.1) APTT 20.2 L (21.0-31.0) Seconds PTT Ratio 0.7 Sodium (136-145) mmol/L Potassium (3.5-5.1) mmol/L Chloride (98-107) mmol/L Carbon Dioxide (21-32) mmol/L Anion Gap (3-11) BUN (6-23) mg/dl Creatinine (0.6-1.2) mg/dl Est Cr Clr Drug Dosing ml/min Est GFR ( Amer) ml/min Est GFR (Non-Af Amer) ml/min BUN/Creatinine Ratio (10-20) Glucose (70-99(Fasting)) mg/dl Calcium (8.5-10.1) mg/dl Total Bilirubin (0.2-1.0) mg/dl AST (13-39) U/L ALT (7-52) U/L Alkaline Phosphatase (34-104) U/L Troponin I High Sens (0-14) pg/ml Total Protein (6.0-8.3) gm/dl Albumin (3.4-5.0) gm/dl Globulin (2.5-4.0) gm/dl Albumin/Globulin Ratio (0.9-2) Lipase (11-82) U/L POC Stool Occult Blood (Negative) SARS-CoV-2, RNA, NAAT (NEGATIVE) Blood Type A Positive Antibody Screen NEGATIVE Crossmatch See Detail 07/09/22 07/09/22 07/09/22 Range/Units 11:05 11:07 11:11 WBC (4.8-10.8) K/ul RBC (3.93-5.22) M/uL Hgb (12.0-16.0) g/dl Hct (34.1-44.9) % MCV (80.0-100.0) fL MCH (25.0-34.0) pg MCHC (32.0-36.0) g/dL RDW Std Deviation (36.4-46.3) fL RDW Coeff of Tatiana (11.5-14.5) % Plt Count (130-400) K/uL MPV (9.4-12.3) fL Immature Gran % (Auto) % Neut % (Auto) % Lymph % (Auto) % Lasalle % (Auto) % Eos % (Auto) % Baso % (Auto) % Neut # (Auto) (1.4-6.5) K/uL Lymph # (Auto) (1.2-3.4) K/uL Lasalle # (Auto) (0.24-0.82) K/uL Eos # (Auto) (0-0.50) K/uL Baso # (Auto) (0-0.2) K/uL Immature Gran # (Auto) (0.00-0.02) K/uL Polychromasia PT (9.0-12.0) Seconds INR (0.9-1.1) APTT (21.0-31.0) Seconds PTT Ratio Sodium 140 (136-145) mmol/L Potassium 3.9 (3.5-5.1) mmol/L Chloride 107 (98-107) mmol/L Carbon Dioxide 23 (21-32) mmol/L Anion Gap 10 (3-11) BUN 41 H (6-23) mg/dl Creatinine 1.54 H (0.6-1.2) mg/dl Est Cr Clr Drug Dosing 24.9 ml/min Est GFR ( Amer) 37.6 ml/min Est GFR (Non-Af Amer) 32.4 ml/min BUN/Creatinine Ratio 26.6 H (10-20) Glucose 199 H (70-99(Fasting)) mg/dl Calcium 8.0 L (8.5-10.1) mg/dl Total Bilirubin 0.3 (0.2-1.0) mg/dl AST 21 (13-39) U/L ALT 19 (7-52) U/L Alkaline Phosphatase 65 (34-104) U/L Troponin I High Sens 9.2 (0-14) pg/ml Total Protein 5.8 L (6.0-8.3) gm/dl Albumin 3.4 (3.4-5.0) gm/dl Globulin 2.4 L (2.5-4.0) gm/dl Albumin/Globulin Ratio 1.4 (0.9-2) Lipase 29 (11-82) U/L POC Stool Occult Blood Positive A (Negative) SARS-CoV-2, RNA, NAAT NEGATIVE (NEGATIVE) Blood Type Antibody Screen Crossmatch Administered Medications Insulin Aspart (Insulin Aspart Per Unit) 0 units SC ACHS MARTHA Stop: 08/08/22 16:29 Last Admin: 07/09/22 17:34 Dose: Not Given Documented By: LINO Discontinued Medications Pantoprazole Sodium 80 mg/ (Dextrose) 100 mls @ 400 mls/hr IV ONE STA Stop: 07/09/22 11:11 Last Infusion: 07/09/22 12:00 Dose: 0 mls/hr Documented By: Admin: 07/09/22 11:39 Dose: 400 mls/hr Documented By: TARAS Imaging Data Radiologist's Impression: Chest X-Ray 07/09/22 10:48 XR chest 1V portable CLINICAL HISTORY: weak, dizzy COMPARISON STUDY: Chest radiograph February 11, 2021. FINDINGS: Lung volumes are normal. Lungs are clear. Calcified density projecting over the right lower lung is likely within the anterior right fifth rib. This is unchanged and benign. There is no pneumothorax or pleural effusion. Cardiac size is normal. Mediastinal contours are normal. There is no evidence for pulmonary edema. Cholecystectomy clips are incidentally noted. IMPRESSION: No acute cardiopulmonary findings. ACT 112: Negative or not required by law. Electronically signed by: Alexandro Dodson M.D. 07/09/2022 11:06 AM Abdomen/Pelvis CT 07/09/22 10:57 CT OF THE ABDOMEN AND PELVIS WITHOUT CONTRAST CLINICAL HISTORY: black stools, weak, hx gastric resection COMPARISON STUDY: CT of the abdomen and pelvis March 31, 2010 and abdominal series October 15, 2018. TECHNIQUE: Axial images of the abdomen and pelvis were obtained without IV contrast. Images were reviewed in the axial, sagittal, and coronal planes. Auto mated exposure control was utilized for the study. A dose lowering technique was utilized adhering to the principles of ALARA. FINDINGS: Lung bases are unremarkable. Decreased attenuation of the cardiac blood is present. No pneumatosis, free air or portal venous gas is present. A 3 mm renal calculus is noted. There is a 2 mm right renal calculus. There are no ureteral calculi. There is no hydronephrosis or hydroureter. Evaluation of the remainder of the abdomen and pelvis is suboptimal on this unenhanced exam. Liver is unremarkable. Postoperative findings along the lateral segment of the left hepatic lobe are unchanged. There are postoperative findings consistent with gastrectomy. There is no abnormality within the operative bed. There is no evidence for a bowel obstruction. Wall thickening of the cecum and proximal ascending colon is probably due to underdistention. A mucosal lesion would be difficult to exclude but is considered less likely. There is no associated lymphadenopathy. No lymphadenopathy is present. Sigmoid resection is also noted. A moderate amount stool within the colon is present. Unenhanced images of the spleen, adrenal glands and pancreas are unremarkable. The gallbladder is mildly distended. This is unchanged. There is no adjacent infiltration. There is no ascites. Right hip arthroplasty is noted. Severe left hip osteoarthritis is present. IMPRESSION: 1. Status post gastrectomy. No abnormality within the operative bed. No bowel obstruction. 2. Apparent wall thickening of the cecum and proximal ascending colon. This is likely due to underdistention. A mucosal lesion is considered less likely but would be difficult to exclude. This could be evaluated with colonoscopy. 3. Decreased attenuation of the cardiac blood pool. This could be correlated with H&H level. 4. Bilateral nephrolithiasis. No ureteral calculi. No hydronephrosis. ACT 112: Negative or not required by law. Electronically signed by: Alexandro Dodson M.D. 07/09/2022 12:01 PM Discharge Plan Visit Data Chief Complaint: Referred by Doctor Stated Complaint: POSSIBLE INTERNAL BLEEDING, DIZZY AND WEAK ED Provider: Noman Oshea Discharge Problem: ABLA (acute blood loss anemia), CKD (chronic kidney disease), stage III, Weakness, Melena Patient Disposition: Admitted As Inpatient Discharge Instructions Interventions: ED Discharge Assessment Last Done: 07/09/22 15:45 : CKD (chronic kidney disease), stage III Qualifiers: Chronic kidney disease stage 3 subtype: stage 3b (GFR 30-44) Qualified Code(s): N18.32 - Chronic kidney disease, stage 3b
[2022-07-09 11:36] LABS: INR 0.9 (0.9-1.1); Partial Thromboplastin Ratio 0.7; Partial Thromboplastin Time 20.2 Seconds (21.0-31.0); Prothrombin Time 10.1 Seconds (9.0-12.0)
[2022-07-09 11:50] LABS: Albumin Globulin Ratio 1.4 (0.9-2); Albumin Level 3.4 gm/dl (3.4-5.0); BUN Creatinine Ratio 26.6 (10-20); Bilirubin,Total 0.3 mg/dl (0.2-1.0); Creatinine Clr Calc Pharmacy 24.9 ml/min; Est GFR (African American) 37.6 ml/min; Est GFR (Non-African American) 32.4 ml/min; Globulin 2.4 gm/dl (2.5-4.0); Potassium 3.9 mmol/L (3.5-5.1); Total Protein 5.8 gm/dl (6.0-8.3)
[2022-07-09 11:53] LABS: Troponin I High Sensitivity 9.2 pg/ml (0-14)
[2022-07-09 11:54] LABS: Hematocrit (blood only) 17.4 % (34.1-44.9); Hemoglobin 5.6 g/dl (12.0-16.0); Mean Corpuscular Hemoglobin 28.9 pg (25.0-34.0); Mean Corpuscular Hgb Conc 32.2 g/dL (32.0-36.0); Mean Corpuscular Volume 89.7 fL (80.0-100.0); Mean Platelet Volume 9.7 fL (9.4-12.3); Platelet Count 370 K/uL (130-400); RDW Coefficient of Variation 15.8 % (11.5-14.5); RDW Standard Deviation 50.2 fL (36.4-46.3); Red Blood Count 1.94 M/uL (3.93-5.22); White Blood Count 6.69 K/ul (4.8-10.8)
[2022-07-09 11:58] LABS: Basophils # (auto) 0.04 K/uL (0-0.2); Basophils % (auto) 0.6 %; Eosinophils # (auto) 0.07 K/uL (0-0.50); Immature Granulocytes # (auto) 0.01 K/uL (0.00-0.02); Immature Granulocytes % (auto) 0.1 %; Lymphocytes # (auto) 1.55 K/uL (1.2-3.4); Lymphocytes % (auto) 23.2 %; Monocytes # (auto) 0.39 K/uL (0.24-0.82); Monocytes % (auto) 5.8 %; Neutrophils # (auto) 4.63 K/uL (1.4-6.5); Neutrophils % (auto) 69.3 %; Polychromasia 1+
--- NOTE | 2022-07-09 12:02 | CT Scan Report ---
CT OF THE ABDOMEN AND PELVIS WITHOUT CONTRAST CLINICAL HISTORY: black stools, weak, hx gastric resection COMPARISON STUDY: CT of the abdomen and pelvis March 31, 2010 and abdominal series October 15, 2018 . TECHNIQUE: Axial images of the abdomen and pelvis were obtained without IV contrast. Images were revi ewed in the axial, sagittal, and coronal planes. Automated exposure control was utilized for the myra dy. A dose lowering technique was utilized adhering to the principles of ALARA. FINDINGS: Lung bases are unremarkable. Decreased attenuation of the cardiac blood is present. No pneu matosis, free air or portal venous gas is present. A 3 mm renal calculus is noted. There is a 2 mm ri ght renal calculus. There are no ureteral calculi. There is no hydronephrosis or hydroureter. Evaluat ion of the remainder of the abdomen and pelvis is suboptimal on this unenhanced exam. Liver is unrema rkable. Postoperative findings along the lateral segment of the left hepatic lobe are unchanged. Ther e are postoperative findings consistent with gastrectomy. There is no abnormality within the operativ e bed. There is no evidence for a bowel obstruction. Wall thickening of the cecum and proximal ascend ing colon is probably due to underdistention. A mucosal lesion would be difficult to exclude but is c onsidered less likely. There is no associated lymphadenopathy. No lymphadenopathy is present. Sigmoid resection is also noted. A moderate amount stool within the colon is present. Unenhanced images of t he spleen, adrenal glands and pancreas are unremarkable. The gallbladder is mildly distended. This is unchanged. There is no adjacent infiltration. There is no ascites. Right hip arthroplasty is noted. Severe left hip osteoarthritis is present. IMPRESSION: 1. Status post gastrectomy. No abnormality within the operative bed. No bowel obstruction. 2. Apparent wall thickening of the cecum and proximal ascending colon. This is likely due to underdis tention. A mucosal lesion is considered less likely but would be difficult to exclude. This could be evaluated with colonoscopy. 3. Decreased attenuation of the cardiac blood pool. This could be correlated with H&H level. 4. Bilateral nephrolithiasis. No ureteral calculi. No hydronephrosis. ACT 112: Negative or not required by law. Electronically signed by: Alexandro Dodson M.D. 07/09/2022 12:01 PM
[2022-07-09] MEDS ORDERED: SODIUM CHLORIDE 0.9% 250 ML IV PRN ×2 (12:03→12:16)
--- NOTE | 2022-07-09 12:59 | Gastrointestinal Consultation ---
Date of Consultation July 09, 2022 Assessment & Plan (1) ABLA (acute blood loss anemia): 76 year old female with history of breast CA s/p chemo/surgery and bone marrow transplantation in 1993, HTN, CKD-3 GERD, anemia of chronic disease, h/o PUD s/p Billroth 2 and had post op gastroparesis & failed treatment then had gastrectomy in 2010, CLEMENTINA, depression, hypothyroidism, spinal stenosis, RLS others below who presents through the ED w/ change in bowel habits and black stools, HGB 5.6 Trend HGB Monitor and document GI output Transfuse PRN Can have clear liquids IV PPI bolus and drip for 72 hours Check ferritin and iron studies Check c.diff and stool studies if diarrhea develops given CT findings Would plan for IV iron pending results of iron studies Would medically optimize and plan for EGD/Colonoscopy on Tuesday given suboptimal prep, anemia, report of dark stools and CT showing wall thickening of the cecum and proximal ascending colon Thank you for allowing us to participate in the care of this patient. Please call with any acute changes, questions or concerns. Please see addendum below with additional recommendation from my supervising physician. Supervising Physician Co-Signing Physician Notes I saw and evaluated the patient. We were consulted for evaluation of anemia. the patient does have a fairly complex medical history and has had a subtotal gastrectomy performed in the past. She denies having any hematemesis with bright red blood per rectum. Physical examination No obvious distress, pallor of skin noted Systolic ejection murmur heard no abdominal tenderness noted Impression: This with a significant anemia, unclear if her bowel movements represent melena. Recommendations NPO EGD (next availble) Protonix drip please If EGD negative would then arrange a colonsocopy. History of Present Illness Reason for Consultation: anemia, +FOBT Requesting Physician: Jasmyn Attending Physician: Jasmyn History of Present Illness 76 year old female with history of breast CA s/p chemo/surgery and bone marrow transplantation in 1993, HTN, CKD-3m GERD, anemia of chronic disease, h/o PUD s/p Billroth 2 and had post op gastroparesis & failed treatment then had gastrectomy in 2010, CLEMENTINA, depression, hypothyroidism, spinal stenosis, RLS others below who presents through the ED w/ change in bowel habits and black stools. GI asked to evaluate for anemia and HGB of 5.6. Pt was seen and evaluated, chart reviewed. Notes last seen by hematology in March, for anemia, mixed etiology. Was on IV iron in the past, suggests has not had IV iron in about a year. suggests labs were last checked 06/07 and showed mild anemia, HGB 11.2 which was typically her baseline. Notes that she has been maintained on oral iron for over a year and no change in dosing or iron was recommended. Suggests that about 1 week ago she noted change in bowel habits and three days of dark, tarry stools. These were small volume, semi-formed. No BRBPR. She denies any abd pain. No nausea, vomiting. Denies GERD, reflux/regurgitation or dysphagia. No fever, chills, CP, SOB. She does endorses weakness and dizziness in the last 24/48 hours. H&H 5.6/17.4 BUN/APPLICATIONS PROCESSOR 41/1.5 INR 0.9 + FOBT Uses Excedrin PRN No ASA, NSAIDs or AC No tobacco No ETOH CTAP 2021: Status post gastrectomy. No abnormality within the operative bed. No bowel obstruction.Apparent wall thickening of the cecum and proximal ascending colon. This is likely due to underdistention. A mucosal lesion is considered less likely but would be difficult to exclude. This could be evaluated with colonoscopy. Decreased attenuation of the cardiac blood pool. This could be correlated with H&H level. Bilateral nephrolithiasis. No ureteral calculi. No hydronephrosis. EGD 2020: Normal esophagus.A gastroenterostomy was found, characterized by healthy appearing mucosa. Normal examined jejunum. Biopsied. Colon 2020: Suboptimal bowel prep, Internal hemorrhoids.The examination was otherwise normal.No specimens collected. Allergies Allergy/AdvReac Type Severity Reaction Status Date / Time Sulfa (Sulfonamide Allergy Intermediate HIVES Verified 02/24/22 07:05 Antibiotics) metoclopramide AdvReac Intermediate depression Verified 02/24/22 07:05 Home Medications Medication Instructions Recorded Confirmed Type fluticasone propionate 50 2 spray intranasal QAM 10/15/18 07/09/22 History mcg/actuation nasal spray,suspension levothyroxine 50 mcg tablet 25 mcg PO 5XWK 10/15/18 07/09/22 History levothyroxine 50 mcg tablet 50 mcg PO 2XWK 10/15/18 07/09/22 History trazodone 50 mg tablet 50 mg PO HS 10/15/18 07/09/22 History prazosin 1 mg capsule 1 mg PO QPM 06/17/20 07/09/22 History ropinirole 4 mg tablet,extended 4 mg PO HS 06/17/20 07/09/22 History release 24 hr Wheelchair (Manual) #1 ea 01/01/21 07/09/22 Rx amlodipine 5 mg tablet 5 mg PO QAM 02/11/22 07/09/22 History multivitamin 1 tab PO QAM 02/11/22 07/09/22 History omega-3 fatty acids 1,000 mg PO DAILY 02/11/22 07/09/22 History cyclosporine 0.05 % eye drops in a 1 drp ophthalmic (eye) Q12H 07/09/22 07/09/22 History dropperette (Restasis) ferrous sulfate 15 mg iron (75 10 ml PO DAILY 07/09/22 07/09/22 History mg)/mL oral syringe (ORAL USE) food supplemt, lactose-reduced 1 ea PO DAILY 07/09/22 07/09/22 History (Ensure oral liquid) magnesium malate, chelate 1,000 mg PO DAILY 07/09/22 07/09/22 History metformin 500 mg tablet,extended 500 mg PO DAILY 07/09/22 07/09/22 History release 24 hr ozztprer-kkv-kumuek 5 mg-zeaxanth 1 cap PO DAILY 07/09/22 07/09/22 History 1 mg-bilberry 7.5 mg-herbal capsule ([employer] Formula) tramadol 50 mg tablet 50 mg PO Q6H PRN Severe Pain 07/09/22 07/09/22 History (Scale Score 7-10) Patient History Medical History Anemia due to chronic kidney disease Arthritis CKD (chronic kidney disease), stage III History of COVID-19 History of depression History of TMJ disorder Hx of gastric ulcer Hx of migraines Hx of sleep apnea HX: breast cancer Hypothyroidism Lyme disease Macular degeneration Polycystic ovarian disease RLS (restless legs syndrome) Spinal stenosis Surgical History H/O Billroth II operation H/O bone marrow transplant H/O oophorectomy H/O sinus surgery History of ankle surgery History of appendectomy History of cataract surgery History of colonoscopy History of esophagogastroduodenoscopy (EGD) History of tonsillectomy and adenoidectomy History of total right hip replacement Hx of lumpectomy S/P spinal surgery S/P subtotal gastrectomy Family History Father Atrial fibrillation Other No family history of adverse response to anesthesia Social History Smoking Status: Never smoker Second Hand Exposure: No; Hx Alcohol Use: No Hx Substance Use: No Preferred Language: Croatian Communication Ability: Effective 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 Blood products infusing. Neck: trachea midline Respiratory: normal respiratory effort; no respiratory distress, no labored breathing and no retractions Cardiovascular: Rate/Rhythm: regular rate and regular rhythm Gastrointestinal (Abdomen): normal bowel sounds, soft, nontender, no hepatosplenomegaly Skin: no rashes, warm and dry Pale Results & Data ([facility]) Vital Signs (Past 12 Hours) Vital Signs Temp Pulse Resp BP Pulse Ox O2 Del Method 07/09/22 11:30 92 H 22 100 07/09/22 11:16 96 H 19 140/63 95 07/09/22 12:36 36.7 C 119 H 18 140/92 99 07/09/22 10:37 36.2 C L 120 H 20 163/72 H 98 Room Air Laboratory Results 07/09/22 07/09/22 07/09/22 Range/Units 11:11 11:07 11:05 WBC (4.8-10.8) K/ul RBC (3.93-5.22) M/uL Hgb (12.0-16.0) g/dl Hct (34.1-44.9) % MCV (80.0-100.0) fL MCH (25.0-34.0) pg MCHC (32.0-36.0) g/dL RDW Std Deviation (36.4-46.3) fL RDW Coeff of Tatiana (11.5-14.5) % Plt Count (130-400) K/uL MPV (9.4-12.3) fL Immature Gran % (Auto) % Neut % (Auto) % Lymph % (Auto) % Sierra % (Auto) % Eos % (Auto) % Baso % (Auto) % Neut # (Auto) (1.4-6.5) K/uL Lymph # (Auto) (1.2-3.4) K/uL Sierra # (Auto) (0.24-0.82) K/uL Eos # (Auto) (0-0.50) K/uL Baso # (Auto) (0-0.2) K/uL Immature Gran # (Auto) (0.00-0.02) K/uL Polychromasia PT (9.0-12.0) Seconds INR (0.9-1.1) APTT (21.0-31.0) Seconds PTT Ratio Sodium 140 (136-145) mmol/L Potassium 3.9 (3.5-5.1) mmol/L Chloride 107 (98-107) mmol/L Carbon Dioxide 23 (21-32) mmol/L Anion Gap 10 (3-11) BUN 41 H (6-23) mg/dl Creatinine 1.54 H (0.6-1.2) mg/dl Est Cr Clr Drug Dosing 24.9 ml/min Est GFR ( Amer) 37.6 ml/min Est GFR (Non-Af Amer) 32.4 ml/min BUN/Creatinine Ratio 26.6 H (10-20) Glucose 199 H (70-99(Fasting)) mg/dl Calcium 8.0 L (8.5-10.1) mg/dl Total Bilirubin 0.3 (0.2-1.0) mg/dl AST 21 (13-39) U/L ALT 19 (7-52) U/L Alkaline Phosphatase 65 (34-104) U/L Troponin I High Sens 9.2 (0-14) pg/ml Total Protein 5.8 L (6.0-8.3) gm/dl Albumin 3.4 (3.4-5.0) gm/dl Globulin 2.4 L (2.5-4.0) gm/dl Albumin/Globulin Ratio 1.4 (0.9-2) Lipase 29 (11-82) U/L POC Stool Occult Blood Positive A (Negative) SARS-CoV-2, RNA, NAAT NEGATIVE (NEGATIVE) Blood Type Antibody Screen Crossmatch 07/09/22 07/09/22 07/09/22 Range/Units 11:05 11:05 11:05 WBC 6.69 (4.8-10.8) K/ul RBC 1.94 L (3.93-5.22) M/uL Hgb 5.6 L* (12.0-16.0) g/dl Hct 17.4 L* (34.1-44.9) % MCV 89.7 (80.0-100.0) fL MCH 28.9 (25.0-34.0) pg MCHC 32.2 (32.0-36.0) g/dL RDW Std Deviation 50.2 H (36.4-46.3) fL RDW Coeff of Tatiana 15.8 H (11.5-14.5) % Plt Count 370 (130-400) K/uL MPV 9.7 (9.4-12.3) fL Immature Gran % (Auto) 0.1 % Neut % (Auto) 69.3 % Lymph % (Auto) 23.2 % Sierra % (Auto) 5.8 % Eos % (Auto) 1.0 % Baso % (Auto) 0.6 % Neut # (Auto) 4.63 (1.4-6.5) K/uL Lymph # (Auto) 1.55 (1.2-3.4) K/uL Sierra # (Auto) 0.39 (0.24-0.82) K/uL Eos # (Auto) 0.07 (0-0.50) K/uL Baso # (Auto) 0.04 (0-0.2) K/uL Immature Gran # (Auto) 0.01 (0.00-0.02) K/uL Polychromasia 1+ PT 10.1 (9.0-12.0) Seconds INR 0.9 (0.9-1.1) APTT 20.2 L (21.0-31.0) Seconds PTT Ratio 0.7 Sodium (136-145) mmol/L Potassium (3.5-5.1) mmol/L Chloride (98-107) mmol/L Carbon Dioxide (21-32) mmol/L Anion Gap (3-11) BUN (6-23) mg/dl Creatinine (0.6-1.2) mg/dl Est Cr Clr Drug Dosing ml/min Est GFR ( Amer) ml/min Est GFR (Non-Af Amer) ml/min BUN/Creatinine Ratio (10-20) Glucose (70-99(Fasting)) mg/dl Calcium (8.5-10.1) mg/dl Total Bilirubin (0.2-1.0) mg/dl AST (13-39) U/L ALT (7-52) U/L Alkaline Phosphatase (34-104) U/L Troponin I High Sens (0-14) pg/ml Total Protein (6.0-8.3) gm/dl Albumin (3.4-5.0) gm/dl Globulin (2.5-4.0) gm/dl Albumin/Globulin Ratio (0.9-2) Lipase (11-82) U/L POC Stool Occult Blood (Negative) SARS-CoV-2, RNA, NAAT (NEGATIVE) Blood Type A Positive Antibody Screen NEGATIVE Crossmatch See Detail
--- NOTE | 2022-07-09 13:22 | History & Physical Report ---
Date of Service July 09, 2022 Assessment & Plan (1) ABLA (acute blood loss anemia): (2) Melena: Plan: Possible GI bleed Patient is 76 y/o F with PMH GERD, anemia of chronic disease, iron deficiency anemia, B12 deficiency, h/o PUD s/p Billroth 2 and had post op gastroparesis & failed treatment then had gastrectomy in 2010, h/o Breast cancer s/p surgery and chemo, h/o bone marrow transplant, CKD III, CLEMENTINA, depression, anxiety, hypothyroidism, spinal stenosis, RLSpresented to ER with c/o melena x 2 days. Has been taking Excedrin. In ER afebrile, vital stable CT abdomen/pelvis: 1. Status post gastrectomy. No abnormality within the operative bed. No bowel obstruction. 2. Apparent wall thickening of the cecum and proximal ascending colon. This is likely due to underdistention. A mucosal lesion is considered less likely but would be difficult to exclude. This could be evaluated with colonoscopy. 3. Decreased attenuation of the cardiac blood pool. This could be correlated with H&H level. 4. Bilateral nephrolithiasis. No ureteral calculi. No hydronephrosis. Hgb: 5.6. (Was 11 on 06/07/22) Heme positive stool In ER ordered 3 units PRBC's and transfusion started. History anemia of chronic disease, iron deficiency, B12 deficiency. Patient on iron supplement. Reports last PRBC transfusion 09/2021. In the past needed IV iron In ER given Protonix bolus Start Protonix drip H&H every 6 hours N.p.o. GI consult. Plan for EGD Tuesday. If EGD negative, plan to proceed with clear liquids tuesday, golytely 4L to start tuesday, NPO midnight for Colonoscopy on Tuesday (3) LONA (acute kidney injury): Plan: Cr: 1.5. Baseline 1.2 Monitor renal functions, avoid nephrotoxic agents when possible (4) HTN (hypertension): Plan: Hold amlodipine, prazosin and monitor BP (5) Diabetes mellitus, type II: Plan: A1c: 7.2 on 04/26/2022 Hold metformin NovoLog sliding scale per protocol (6) RLS (restless legs syndrome): Plan: On ropinirole (7) Hypothyroidism: Plan: Plan to resume oral levothyroxine 07/01/2022 (8) Breast cancer: Plan: S/P surgery and chemo h/o bone marrow transplant DVT Prophylaxis SCDs Full Code as per discussion with pt Follows with Dr Bishop for routine care Pt was seen and care coordinated with Dr Vines. See addendum History of Present Illness Chief Complaint: melena Primary Care Provider: Saritha Bishop, DO Patient is 76 y/o F with PMH GERD, anemia of chronic disease, iron deficiency anemia, B12 deficiency, h/o PUD s/p Billroth 2 and had post op gastroparesis & failed treatment then had gastrectomy in 2010, h/o Breast cancer s/p surgery and chemo, h/o bone marrow transplant, CKD III, CLEMENTINA, depression, anxiety, hypothyroidism, spinal stenosis, RLSpresented to ER with c/o melena x 2 days. Reports constipation for the last 1.5-2 weeks. She started taking MiraLAX, stool softeners. 2 days ago had BM that was black and tarry. Patient states she has been having an uncomfortable sensation to epigastric region after eating for the past several days. Complains of dizziness, generalized weakness x2 days. Denies syncope. Patient reports that she has been generally feeling unwell since 04/2022 and she thought it was secondary to starting metformin. She has been taking Excedrin several times a week. Last ate yesterday evening. History COVID- 19 in 04/2022 and treated with Paxlovid. Denies fever/chills, diaphoresis, N/V, LEARY, syncope, vision changes, neck pain, CP, SOB, orthopnea, palpitations, cough, sore throat, choking, otalgia, rhinorrhea, abdominal pain, paresthesias, extremity weakness, extremity edema, rashes, urinary symptoms. Colonoscopy 02/12/2021: Internal hemorrhoids, exam otherwise normal, bowel prep was suboptimal EGD 02/12/2021: Normal esophagus, gastroenterostomy characterized by healthy- appearing mucosa, normal examined jejunum Allergies Allergy/AdvReac Type Severity Reaction Status Date / Time Sulfa (Sulfonamide Allergy Intermediate HIVES Verified 02/24/22 07:05 Antibiotics) metoclopramide AdvReac Intermediate depression Verified 02/24/22 07:05 Home Medications Medication Instructions Recorded Confirmed Type fluticasone propionate 50 2 spray intranasal QAM 10/15/18 07/09/22 History mcg/actuation nasal spray,suspension levothyroxine 50 mcg tablet 25 mcg PO 5XWK 10/15/18 07/09/22 History levothyroxine 50 mcg tablet 50 mcg PO 2XWK 10/15/18 07/09/22 History trazodone 50 mg tablet 50 mg PO HS 10/15/18 07/09/22 History prazosin 1 mg capsule 1 mg PO QPM 06/17/20 07/09/22 History ropinirole 4 mg tablet,extended 4 mg PO HS 06/17/20 07/09/22 History release 24 hr Wheelchair (Manual) #1 ea 01/01/21 07/09/22 Rx amlodipine 5 mg tablet 5 mg PO QAM 02/11/22 07/09/22 History multivitamin 1 tab PO QAM 02/11/22 07/09/22 History omega-3 fatty acids 1,000 mg PO DAILY 02/11/22 07/09/22 History cyclosporine 0.05 % eye drops in a 1 drp ophthalmic (eye) Q12H 07/09/22 07/09/22 History dropperette (Restasis) ferrous sulfate 15 mg iron (75 10 ml PO DAILY 07/09/22 07/09/22 History mg)/mL oral syringe (ORAL USE) food supplemt, lactose-reduced 1 ea PO DAILY 07/09/22 07/09/22 History (Ensure oral liquid) magnesium malate, chelate 1,000 mg PO DAILY 07/09/22 07/09/22 History metformin 500 mg tablet,extended 500 mg PO DAILY 07/09/22 07/09/22 History release 24 hr bdhczcpz-map-jiwzsv 5 mg-zeaxanth 1 cap PO DAILY 07/09/22 07/09/22 History 1 mg-bilberry 7.5 mg-herbal capsule ([employer] Formula) tramadol 50 mg tablet 50 mg PO Q6H PRN Severe Pain 07/09/22 07/09/22 History (Scale Score 7-10) Past Med/Surg History Medical History (Updated 07/09/22 @ 15:32 by Latha Castañeda PA-C) Anemia due to chronic kidney disease pt states has issues w/ anemia last blood transfusion was 10/2021 after back sx Arthritis CKD (chronic kidney disease), stage III Diabetes mellitus, type II History of COVID-12 JUNE 2020 (HOSPITALIZED AT [facility])- denies current issues History of depression History of TMJ disorder HTN (hypertension) Hx of gastric ulcer RESULTING IN GASTRECTOMY Hx of migraines Hx of sleep apnea RESOLVED 2007 HX: breast cancer 1993- lumpectomy and chemo Hypothyroidism Lyme disease Macular degeneration Polycystic ovarian disease RLS (restless legs syndrome) Spinal stenosis Surgical History H/O Billroth II operation H/O bone marrow transplant 1993 H/O oophorectomy H/O sinus surgery History of ankle surgery LEFT (12/28/20) History of appendectomy History of cataract surgery RT/LEFT History of colonoscopy History of esophagogastroduodenoscopy (EGD) History of tonsillectomy and adenoidectomy History of total right hip replacement Hx of lumpectomy LEFT S/P spinal surgery 09/2021 lumbar- [facility] S/P subtotal gastrectomy D/T GASTRIC ULCERS Family History Father Atrial fibrillation Other No family history of adverse response to anesthesia Social History Smoking Status: Never smoker Second Hand Exposure: No; Hx Alcohol Use: No Hx Substance Use: No Preferred Language: Italian Communication Ability: Effective 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 Beliefs That Will Affect Care: None marital status: / marital status details: within last 8-9 mo Current Living Situation: Alone Other Information That Helps Us Care for You: No Feels Safe at Home: Yes Safety Concerns: Feels Safe At This Time Assistive Devices: Glasses Review of Systems Review of Systems: All systems reviewed & are unremarkable except as noted in HPI & below Physical Exam Physical Exam: General: no distress, WDWN Head: normocephalic, atraumatic Eyes: conjunctiva pale, anicteric ENT: normal inspection external ears, nose, mucous membranes moist Neck: supple, trachea midline Lungs: clear, no respiratory distress, no wheezing/rhonchi/rales CV: RRR, + murmur, no pretibial edema Abd: normal BS, soft, non-tender Ext: no cyanosis, no calf tenderness Neuro: A&O x 3, no focal deficits noted, normal affect Skin: +pale, warm, dry Results & Data Results & Data ([facility]) Vital Signs (Past 12 Hours) Vital Signs Temp Pulse Resp BP Pulse Ox O2 Del Method 07/09/22 11:30 92 H 22 100 07/09/22 11:16 96 H 19 140/63 95 07/09/22 12:36 36.7 C 119 H 18 140/92 99 07/09/22 10:37 36.2 C L 120 H 20 163/72 H 98 Room Air Laboratory Results Short CBC 07/09/22 Range/Units 11:05 WBC 6.69 (4.8-10.8) K/ul Hgb 5.6 L* (12.0-16.0) g/dl Hct 17.4 L* (34.1-44.9) % Plt Count 370 (130-400) K/uL BMP 07/09/22 11:05 Sodium 140 Potassium 3.9 Chloride 107 Carbon Dioxide 23 BUN 41 H Creatinine 1.54 H Glucose 199 H Calcium 8.0 L Liver Function 07/09/22 Range/Units 11:05 Total Bilirubin 0.3 (0.2-1.0) mg/dl AST 21 (13-39) U/L ALT 19 (7-52) U/L Alkaline Phosphatase 65 (34-104) U/L Albumin 3.4 (3.4-5.0) gm/dl Diagnostic Findings Chest X-Ray 07/09/22 10:48 XR chest 1V portable CLINICAL HISTORY: weak, dizzy COMPARISON STUDY: Chest radiograph February 11, 2021. FINDINGS: Lung volumes are normal. Lungs are clear. Calcified density projecting over the right lower lung is likely within the anterior right fifth rib. This is unchanged and benign. There is no pneumothorax or pleural effusion. Cardiac size is normal. Mediastinal contours are normal. There is no evidence for pulmonary edema. Cholecystectomy clips are incidentally noted. IMPRESSION: No acute cardiopulmonary findings. ACT 112: Negative or not required by law. Electronically signed by: Alexandro Dodson M.D. 07/09/2022 11:06 AM Abdomen/Pelvis CT 07/09/22 10:57 CT OF THE ABDOMEN AND PELVIS WITHOUT CONTRAST CLINICAL HISTORY: black stools, weak, hx gastric resection COMPARISON STUDY: CT of the abdomen and pelvis March 31, 2010 and abdominal series October 15, 2018. TECHNIQUE: Axial images of the abdomen and pelvis were obtained without IV contrast. Images were reviewed in the axial, sagittal, and coronal planes. Automated exposure control was utilized for the study. A dose lowering technique was utilized adhering to the principles of ALARA. FINDINGS: Lung bases are unremarkable. Decreased attenuation of the cardiac blood is present. No pneumatosis, free air or portal venous gas is present. A 3 mm renal calculus is noted. There is a 2 mm right renal calculus. There are no ureteral calculi. There is no hydronephrosis or hydroureter. Evaluation of the remainder of the abdomen and pelvis is suboptimal on this unenhanced exam. Liver is unremarkable. Postoperative findings along the lateral segment of the left hepatic lobe are unchanged. There are postoperative findings consistent with gastrectomy. There is no abnormality within the operative bed. There is no evidence for a bowel obstruction. Wall thickening of the cecum and proximal ascending colon is probably due to underdistention. A mucosal lesion would be difficult to exclude but is considered less likely. There is no associated lymphadenopathy. No lymphadenopathy is present. Sigmoid resection is also noted. A moderate amount stool within the colon is present. Unenhanced images of the spleen, adrenal glands and pancreas are unremarkable. The gallbladder is mildly distended. This is unchanged. There is no adjacent infiltration. There is no ascites. Right hip arthroplasty is noted. Severe left hip osteoarthritis is present. IMPRESSION: 1. Status post gastrectomy. No abnormality within the operative bed. No bowel obstruction. 2. Apparent wall thickening of the cecum and proximal ascending colon. This is likely due to underdistention. A mucosal lesion is considered less likely but would be difficult to exclude. This could be evaluated with colonoscopy. 3. Decreased attenuation of the cardiac blood pool. This could be correlated with H&H level. 4. Bilateral nephrolithiasis. No ureteral calculi. No hydronephrosis. ACT 112: Negative or not required by law. Electronically signed by: Alexandro Dodson M.D. 07/09/2022 12:01 PM Supervising Physician Co-Signing Physician Notes Care coordinated with Latha Castañeda PA-C. Agree with above note. Patient seen and examined. Please refer to her notes for full details. Vital signs reviewed. Physical exam: General exam: Alert and oriented. Not in acute distress. CVS: S1 and S2 heard, regular rate and rhythm, no murmurs. RS: Clear to auscultation, no wheezing or crackles. ABD: Soft, bowel sounds present, nontender, no distention. DIE CAST SUPERVISOR: Nonfocal. EXT: No edema, no erythema. Labs: Reviewed. Assessment and plan: 76F With hx of billroth 2, hx of gastrectomy, hx of breast cancer stage IV status post high-dose chemotherapy and bone marrow transplantation in 1993 , Hx of iron deficiency anemia (follows with heme/onco)presents with black stools for 2 days , prior to that she was constipated . Appetite down. feeling sob on exertion. No chest pains. Hemodynamics stable. Symptomatic anemia acute blood loss anemia melena Hx of iron deficiency anemia hb 5.6 ER ordered 3units of prbc which will be given ppi GI consulted Plan for egd in am and colonoscopy on tuesday close monitor. Other diagnosis and plan of care as per Latha Castañeda PA-C. . Bernardo hayward MD.
--- NOTE | 2022-07-09 14:42 | Electrocardiogram Report ---
Test Reason : Blood Pressure : / mmHG Vent. Rate : 096 BPM Atrial Rate : 096 BPM P-R Int : 144 ms QRS Dur : 086 ms QT Int : 364 ms P-R-T Axes : 055 -16 038 degrees QTc Int : 459 ms Normal sinus rhythm Normal ECG When compared with ECG of 11-FEB-2021 10:52, No significant change was found Confirmed by Xavier Friend ([id number]) on 07/09/2022 2:42:27 PM Referred By: Saritha Bishop Confirmed By:Xavier Friend
[2022-07-09] MEDS ORDERED: ACETAMINOPHEN 1,000 MG/100 ML VIAL IV PRN (16:22)
[2022-07-09] MEDS ORDERED: CARBOHYDRATES FOR HYPOGLYCEMIA PO PRN (16:22)
[2022-07-09] MEDS ORDERED: ONDANSETRON INJ 2 MG/ML 2 ML VIAL IV PRN (16:22)
[2022-07-09] MEDS ORDERED: MoRPHine SULFATE 2 MG/ML CARP IV PRN (16:22)
[2022-07-09] MEDS ORDERED: GLUCAGON FOR INJ 1 MG VIAL SQ PRN (16:22)
[2022-07-09] MEDS ORDERED: GLUCOSE 10 TAB/TUBE PO PRN (16:22)
[2022-07-09] MEDS ORDERED: DEXTROSE 50% 50 ML SYRINGE IV PRN (16:22)
[2022-07-09] MEDS ORDERED: GLUCOSE 40% GEL 15 GM TUBE PO PRN (16:22)
[2022-07-09] MEDS: INSULIN ASPART PER UNIT SC SCH ×2 (17:34→21:22)
[2022-07-09] MEDS ORDERED: INFLUENZA VACCINE HIGH DOSE PF 65+ 0.7 ML SYR IM ONE (18:00)
[2022-07-09] MEDS ORDERED: FUROSEMIDE INJ 20 MG/2 ML VIAL IV ONE (18:46)
[2022-07-09] MEDS: PANTOprazole 40 MG in DEXTROSE 5% 100 ML IV SCH ×2 (19:31→23:52)
[2022-07-09] MEDS: traMADol HCL 50 MG TABLET PO PRN (21:26)
[2022-07-09] MEDS: traZODone HCL 50 MG TAB PO SCH (23:52)
[2022-07-09] MEDS: rOPINIRole HCL 2 MG TABLET PO SCH (23:53)
[2022-07-10 01:03] LABS: Hematocrit (blood only) 27.6 % (34.1-44.9); Hemoglobin 9.2 g/dl (12.0-16.0)
[2022-07-10] MEDS: [UNRECOGNIZED DRUG - OTHER] SCH ×3 (01:36→16:41)
[2022-07-10] MEDS: PANTOprazole 40 MG in DEXTROSE 5% 100 ML IV SCH ×3 (04:54→13:42)
[2022-07-10 07:11] LABS: Hematocrit (blood only) 27.5 % (34.1-44.9); Hemoglobin 9.1 g/dl (12.0-16.0); Mean Corpuscular Hemoglobin 27.7 pg (25.0-34.0); Mean Corpuscular Hgb Conc 33.1 g/dL (32.0-36.0); Mean Corpuscular Volume 83.8 fL (80.0-100.0); Mean Platelet Volume 9.4 fL (9.4-12.3); Platelet Count 305 K/uL (130-400); RDW Coefficient of Variation 16.4 % (11.5-14.5); RDW Standard Deviation 49.1 fL (36.4-46.3); Red Blood Count 3.28 M/uL (3.93-5.22); White Blood Count 4.39 K/ul (4.8-10.8)
[2022-07-10 07:39] LABS: BUN Creatinine Ratio 20.3 (10-20); Creatinine Clr Calc Pharmacy 36.4 ml/min; Est GFR (African American) 49.3 ml/min; Est GFR (Non-African American) 42.6 ml/min; Potassium 3.8 mmol/L (3.5-5.1)
[2022-07-10] MEDS: INSULIN ASPART PER UNIT SC SCH ×4 (07:53→20:21)
[2022-07-10] MEDS ORDERED: amLODIPine BESYLATE 5 MG TAB PO SCH (09:00)
[2022-07-10] MEDS: traMADol HCL 50 MG TABLET PO PRN ×2 (10:07→21:16)
[2022-07-10] MEDS: amLODIPine BESYLATE 5 MG TAB PO SCH (10:07)
[2022-07-10] MEDS ORDERED: PROPOFOL IV EMULSION 10 MG/ML 20 ML VIAL IV ONE (10:34)
[2022-07-10] MEDS ORDERED: LIDOCAINE 2% MPF LOCAL 5 ML VIAL INFIL ONE (10:34)
--- NOTE | 2022-07-10 10:54 | History & Physical Report ---
Date of Service July 10, 2022 Assessment & Plan (1) ABLA (acute blood loss anemia): Plan: Pleasant woman who has anemia and needs EGD. Discussed procedure and risks for eGD with her, she agrees. Present on Admission?: Yes Admission and Anticipated Discharge Date Admission Date: July 09, 2022 History of Present Illness Primary Care Provider: Saritha Bishop DO 76 year old female admitted with anemia. I am asked to do EGD. She has a his tory of a subtotal gastrectomy in remote past. Allergies Allergy/AdvReac Type Severity Reaction Status Date / Time Sulfa (Sulfonamide Allergy Intermediate HIVES Verified 02/24/22 07:05 Antibiotics) metoclopramide AdvReac Intermediate depression Verified 02/24/22 07:05 Home Medications Medication Instructions Recorded Confirmed Type fluticasone propionate 50 2 spray intranasal QAM 10/15/18 07/09/22 History mcg/actuation nasal spray,suspension levothyroxine 50 mcg tablet 25 mcg PO 5XWK 10/15/18 07/09/22 History levothyroxine 50 mcg tablet 50 mcg PO 2XWK 10/15/18 07/09/22 History trazodone 50 mg tablet 50 mg PO HS 10/15/18 07/09/22 History prazosin 1 mg capsule 1 mg PO QPM 06/17/20 07/09/22 History ropinirole 4 mg tablet,extended 4 mg PO HS 06/17/20 07/09/22 History release 24 hr Wheelchair (Manual) #1 ea 01/01/21 07/09/22 Rx amlodipine 5 mg tablet 5 mg PO QAM 02/11/22 07/09/22 History multivitamin 1 tab PO QAM 02/11/22 07/09/22 History omega-3 fatty acids 1,000 mg PO DAILY 02/11/22 07/09/22 History cyclosporine 0.05 % eye drops in a 1 drp ophthalmic (eye) Q12H 07/09/22 07/09/22 History dropperette (Restasis) ferrous sulfate 15 mg iron (75 10 ml PO DAILY 07/09/22 07/09/22 History mg)/mL oral syringe (ORAL USE) food supplemt, lactose-reduced 1 ea PO DAILY 07/09/22 07/09/22 History (Ensure oral liquid) magnesium malate, chelate 1,000 mg PO DAILY 07/09/22 07/09/22 History metformin 500 mg tablet,extended 500 mg PO DAILY 07/09/22 07/09/22 History release 24 hr jydklgjz-chs-ptvxin 5 mg-zeaxanth 1 cap PO DAILY 07/09/22 07/09/22 History 1 mg-bilberry 7.5 mg-herbal capsule ([employer] Formula) tramadol 50 mg tablet 50 mg PO Q6H PRN Severe Pain 07/09/22 07/09/22 History (Scale Score 7-10) Past Med/Surg History Medical History Anemia due to chronic kidney disease pt states has issues w/ anemia last blood transfusion was 10/2021 after back sx Arthritis CKD (chronic kidney disease), stage III Diabetes mellitus, type II History of COVID-12 JUNE 2020 (HOSPITALIZED AT [facility])- denies current issues History of depression History of TMJ disorder HTN (hypertension) Hx of gastric ulcer RESULTING IN GASTRECTOMY Hx of migraines Hx of sleep apnea RESOLVED 2007 HX: breast cancer 1993- lumpectomy and chemo Hypothyroidism Lyme disease Macular degeneration Polycystic ovarian disease RLS (restless legs syndrome) Spinal stenosis Surgical History H/O Billroth II operation H/O bone marrow transplant 1993 H/O oophorectomy H/O sinus surgery History of ankle surgery LEFT (12/28/20) History of appendectomy History of cataract surgery RT/LEFT History of colonoscopy History of esophagogastroduodenoscopy (EGD) History of tonsillectomy and adenoidectomy History of total right hip replacement Hx of lumpectomy LEFT S/P spinal surgery 09/2021 lumbar- [facility] S/P subtotal gastrectomy D/T GASTRIC ULCERS Family History Father Atrial fibrillation Other No family history of adverse response to anesthesia Social History Smoking Status: Never smoker Second Hand Exposure: No; Hx Alcohol Use: No Hx Substance Use: No Preferred Language: German Communication Ability: Effective Certified Detention Deputy Required: No Beliefs That Will Affect Care: None marital status: / marital status details: within last 8-9 mo Current Living Situation: Alone Other Information That Helps Us Care for You: No Feels Safe at Home: Yes Safety Concerns: Feels Safe At This Time Assistive Devices: Glasses Review of Systems All systems reviewed & are unremarkable except as noted in HPI & below Physical Exam Constitutional: WD/WN, vitals as above Neck: trachea midline, no thyromegaly Respiratory: normal respiratory effort, lungs clear to auscultation Cardiovascular: RRR, no murmur, no edema Gastrointestinal (Abdomen): normal bowel sounds, soft, nontender, no hepatosplenomegaly ASA Classification ASA ASA2E Results & Data ([facility]) Vital Signs (Past 12 Hours) Vital Signs Temp Pulse Pulse Resp BP BP Pulse Ox 07/10/22 08:00 36.8 C 78 16 125/75 97 07/10/22 04:05 36.8 C 76 17 149/79 H 95 07/09/22 23:00 36.7 C 70 16 130/70 97 O2 Del Method 07/10/22 08:00 Room Air 07/10/22 04:05 Room Air 07/09/22 23:00 Code Status & VTE Plan VTE Prophylaxis Plan VTE Prophylaxis will be ordered: Yes
[2022-07-10] MEDS ORDERED: ATROPINE SULFATE 0.1 MG/ML 10ML SYR IV PRN (10:58)
[2022-07-10] MEDS ORDERED: fentaNYL citrate 100 MCG/2 ML VIAL IV PRN (10:58)
[2022-07-10] MEDS ORDERED: ONDANSETRON INJ 2 MG/ML 2 ML VIAL IV PRN (10:58)
[2022-07-10] MEDS ORDERED: ePHEDrine sulfate 50 MG/ML AMP IV PRN (10:58)
--- NOTE | 2022-07-10 10:58 | Anesthesiology Consultation ---
Date of Service July 10, 2022 Assessment & Plan ASA ASA3 Proposed Anesthesia Anesthesia Type: MAC Risk / Benefits Reviewed With: PT / POA / Parent / Guardian, Accepts Plan and Informed Consent Obtained History Surgery Operation Date: 07/10/22 08:50 Proposed Procedures p Esophagogastroduodenoscopy - Denver Trevino Jr, MD Operation Date: 07/12/22 16:30 Proposed Procedures p Colonoscopy EGD Dr. Rivera - Kristyn Rivera MD Height/Weight Height: 5 ft 6 in Weight: 64.4 kg Allergies Allergy/AdvReac Type Severity Reaction Status Date / Time Sulfa (Sulfonamide Allergy Intermediate HIVES Verified 02/24/22 07:05 Antibiotics) metoclopramide AdvReac Intermediate depression Verified 02/24/22 07:05 Medications Home Medications Medication Instructions Recorded Confirmed Last Taken fluticasone propionate 50 2 spray intranasal QAM 10/15/18 07/09/22 07/08/22 mcg/actuation nasal spray,suspension levothyroxine 50 mcg tablet 25 mcg PO 5XWK 10/15/18 07/09/22 07/07/22 levothyroxine 50 mcg tablet 50 mcg PO 2XWK 10/15/18 07/09/22 07/08/22 trazodone 50 mg tablet 50 mg PO HS 10/15/18 07/09/22 07/08/22 prazosin 1 mg capsule 1 mg PO QPM 06/17/20 07/09/22 02/23/22 ropinirole 4 mg tablet,extended 4 mg PO HS 06/17/20 07/09/22 07/08/22 release 24 hr Wheelchair (Manual) #1 ea 01/01/21 07/09/22 Unknown amlodipine 5 mg tablet 5 mg PO QAM 02/11/22 07/09/22 07/09/22 multivitamin 1 tab PO QAM 02/11/22 07/09/22 07/08/22 omega-3 fatty acids 1,000 mg PO DAILY 02/11/22 07/09/22 02/23/22 cyclosporine 0.05 % eye drops in a 1 drp ophthalmic (eye) Q12H 07/09/22 07/09/22 07/08/22 dropperette (Restasis) ferrous sulfate 15 mg iron (75 10 ml PO DAILY 07/09/22 07/09/2207/08/22 mg)/mL oral syringe (ORAL USE) food supplemt, lactose-reduced 1 ea PO DAILY 07/09/22 07/09/22 Unknown (Ensure oral liquid) magnesium malate, chelate 1,000 mg PO DAILY 07/09/22 07/09/22 Unknown metformin 500 mg tablet,extended 500 mg PO DAILY 07/09/22 07/09/22 07/08/22 release 24 hr vsvvkygh-vhy-coduec 5 mg-zeaxanth 1 cap PO DAILY 07/09/22 07/09/22 Unknown 1 mg-bilberry 7.5 mg-herbal capsule ([employer] Formula) tramadol 50 mg tablet 50 mg PO Q6H PRN Severe Pain 07/09/22 07/09/22 Unknown (Scale Score 7-10) Active Medications Generic Name Dose Route Start Last Admin Trade Name Freq PRN Reason Stop Dose Admin Amlodipine Besylate 2.5 mg 07/10/22 09:00 07/10/22 10:07 Amlodipine Besylate 5 Mg Tab PO 08/09/22 08:59 2.5 mg QAM MARTHA Administration Pantoprazole Sodium 40 mg/ 100 mls @ 20 mls/hr 07/09/22 16:30 07/10/22 09:39 Dextrose IV 08/08/22 16:29 8 mg/hr Q5H MARTHA 20 mls/hr Administration 8 MG/HR Insulin Aspart 0 units 07/09/22 16:30 07/10/22 07:53 Insulin Aspart Per Unit SC 08/08/22 16:29 Not Given ACHS MARTHA Miscellaneous 1 each 07/10/22 00:00 07/10/22 01:36 Order Awaiting Action [Cyclosporine [Restasis] 0.05 % Dropperette] N/A 08/09/22 00:00 Not Given QS MARTHA Miscellaneous 1 each 07/10/22 00:00 07/10/22 01:36 Order Awaiting Action [Ropinirole 4 Mg Tablet Extended Release 24 Hr] N/A 08/09/22 00:00 Not Given QS MARTHA Ropinirole HCl 2 mg 07/09/22 23:30 07/09/22 23:53 Ropinirole Hcl 2 Mg Tablet PO 08/08/22 23:29 2 mg 1500,2100 MARTHA Administration Tramadol HCl 50 mg 07/09/22 21:17 07/10/22 10:07 Tramadol Hcl 50 Mg Tablet PO 08/08/22 21:16 50 mg Q6H PRN Administration Severe Pain (Scale Score 7-10) Trazodone HCl 50 mg 07/09/22 21:00 07/09/22 23:52 Trazodone Hcl 50 Mg Tab PO 08/08/22 20:59 50 mg HS MARTHA Administration NPO Date Last Intake of Fluids: 07/09/22 Time Last Intake of Fluids: 21:00 Date Last Intake of Solids: 07/05/22 Past Medical History Medical History Anemia due to chronic kidney disease pt states has issues w/ anemia last blood transfusion was 10/2021 after back sx Arthritis CKD (chronic kidney disease), stage III Diabetes mellitus, type II History of COVID-12 JUNE 2020 (HOSPITALIZED AT [facility])- denies current issues History of depression History of TMJ disorder HTN (hypertension) Hx of gastric ulcer RESULTING IN GASTRECTOMY Hx of migraines Hx of sleep apnea RESOLVED 2007 HX: breast cancer 1993- lumpectomy and chemo Hypothyroidism Lyme disease Macular degeneration Polycystic ovarian disease RLS (restless legs syndrome) Spinal stenosis Exercise / Class Metabolic Activity II 4-5 Yardwork/Stairs/Walk up hill Past Family History Family History Father Atrial fibrillation Other No family history of adverse response to anesthesia Past Surgical History Surgical History H/O Billroth II operation H/O bone marrow transplant 1993 H/O oophorectomy H/O sinus surgery History of ankle surgery LEFT (12/28/20) History of appendectomy History of cataract surgery RT/LEFT History of colonoscopy History of esophagogastroduodenoscopy (EGD) History of tonsillectomy and adenoidectomy History of total right hip replacement Hx of lumpectomy LEFT S/P spinal surgery 09/2021 [facility] S/P subtotal gastrectomy D/T GASTRIC ULCERS Past Anesthesia History No Hx of Anesthesia Complications and No Family Hx of Anesthesia Complications History of PONV No Hx of PONV and No Hx of Motion Sickness Social History Smoking Status: Never smoker Hx Alcohol Use: No Hx Substance Use: No substance use type: does not use Review of Systems denies fever/cough/ colds/ chest pain/ SOB/ CLEMENTINA denies CLEMENTINA Physical Exam Vital Signs Last Vital Signs Temp 36.8 C 07/10/22 08:00 Pulse 78 07/10/22 08:00 Resp 16 07/10/22 08:00 BP 125/75 07/10/22 08:00 Pulse Ox 97 07/10/22 08:00 O2 Del Method 07/10/22 08:00 ENMT Mouth: no TMJ abnormality and no dentition abnormality Thyromental Distance: > or= 3.5 Finger Breadths Mallampati Class: II Neck neck extension not limited Respiratory normal respiratory effort; no respiratory distress Auscultation: lungs clear to auscultation bilaterally Cardiovascular Rate/Rhythm: regular rate and regular rhythm Neurologic moves all extremities Psychiatric Orientation: alert and oriented x 3 Testing Laboratory Results 07/10/22 06:35 07/10/22 06:35 PT 10.1 Seconds (9.0-12.0) 07/09/22 11:05 INR 0.9 (0.9-1.1) 07/09/22 11:05 APTT 20.2 Seconds (21.0-31.0) L 07/09/22 11:05 Blood Type A Positive 07/09/22 11:05 Antibody Screen NEGATIVE 07/09/22 11:05 07/10/22 07:47 POC Glucose 136 H
--- NOTE | 2022-07-10 11:16 | Post Operative Brief Note ---
Immediate Post Op Note v1 Date of Surgery July 10, 2022 Pre & Post Diagnosis Operation Date: 07/10/22 08:50 Pre-Op Diagnosis: acute blood loss anemia Post-Op Diagnosis: acute blood loss anemia Operation Date: 07/12/22 16:30 <No data on this case meets the specified criteria> I identified the patient and participated in the time-out.: Yes Procedure Operation Date: 07/10/22 08:50 Actual Procedures p Esophagogastroduodenoscopy(Not Applicable) - Denver Trevino Jr, MD Operation Date: 07/12/22 16:30 <No data on this case meets the specified criteria> Surgeon Denver Trevino Jr, MD Load Dispatcher none Estimated Blood Loss 0 Findings Consistent with Post-Op Diagnosis Normal postoperative EGD. Efferent limb traversed ~80 cm Anesthesia Type General Complications none Disposition Accompanied Patient To Recovery: No Disposition: Recovery Room Overlapping Procedure I was immediately available: during the entire case.
--- NOTE | 2022-07-10 12:05 | Anesthesiology Progress Note ---
Date of Service July 10, 2022 Anesthesia Post Procedure Vital Signs Vital Signs: Temp Pulse Pulse Resp BP BP Pulse Ox 07/10/22 11:35 36.8 C 85 19 104/60 100 07/10/22 11:25 36.8 C 90 18 104/60 100 07/10/22 11:40 36.8 C 90 16 90/54 L 99 07/10/22 08:00 36.8 C 78 16 125/75 97 07/10/22 04:05 36.8 C 76 17 149/79 H 95 07/09/22 22:10 74 07/09/22 23:00 36.7 C 70 16 130/70 97 07/09/22 18:54 36.8 C 80 17 121/52 L 98 07/09/22 22:30 74 16 127/60 97 07/09/22 22:00 36.5 C 73 17 112/67 96 07/09/22 21:45 36.5 C 75 17 115/66 97 07/09/22 21:29 36.7 C 78 18 119/69 97 07/09/22 21:12 36.7 C 84 18 149/73 H 97 07/09/22 20:09 36.7 C 77 18 115/84 96 07/09/22 20:49 36.7 C 73 18 133/64 97 07/09/22 20:49 36.7 C 73 18 133/64 97 07/09/22 17:53 36.7 C 92 H 16 136/75 98 07/09/22 17:23 36.9 C 91 H 16 144/73 H 98 07/09/22 17:08 36.8 C 90 16 125/68 99 07/09/22 16:50 36.8 C 79 14 131/69 99 07/09/22 15:15 36.7 C 82 18 135/73 96 07/09/22 14:39 36.7 C 91 H 17 136/67 95 07/09/22 13:39 36.8 C 82 18 130/52 L 100 07/09/22 13:24 36.6 C 87 18 130/52 L 97 07/09/22 13:09 36.8 C 88 18 113/76 99 07/09/22 12:54 36.8 C 86 18 131/52 L 99 07/09/22 12:36 36.7 C 119 H 18 140/92 99 O2 Del Method 07/10/22 11:35 Room Air 07/10/22 11:25 Room Air 07/10/22 11:40 Room Air 07/10/22 08:00 Room Air 07/10/22 04:05 Room Air 07/09/22 22:10 07/09/22 23:00 07/09/22 18:54 Room Air 07/09/22 22:30 07/09/22 22:00 07/09/22 21:45 07/09/22 21:29 07/09/22 21:12 07/09/22 20:09 Room Air 07/09/22 20:49 07/09/22 20:49 07/09/22 17:53 07/09/22 17:23 07/09/22 17:08 07/09/22 16:50 07/09/22 15:15 07/09/22 14:39 07/09/22 13:39 07/09/22 13:24 07/09/22 13:09 07/09/22 12:54 07/09/22 12:36 Transfer of Care Handoff Completed per policy Notes Mental Status: alert / awake / arousable and participated in evaluation Patient Amnestic to Procedure: Yes Nausea / Vomiting: adequately controlled Pain: adequately controlled Airway Patency, RR, SpO2: stable & adequate BP & HR: stable & adequate Hydration State: stable & adequate Anesthetic Complications: no major complications apparent and Pt Satisfied with anesthetic care
[2022-07-10] MEDS: MULTIVITAMIN TAB PO SCH (12:11)
[2022-07-10] MEDS ORDERED: ACETAMINOPHEN 325 MG TAB PO PRN (13:14)
[2022-07-10] MEDS: FLUTICASONE PROPIONATE NA SPR 16 GM BTL NAE SCH (13:22)
[2022-07-10] MEDS: rOPINIRole HCL 2 MG TABLET PO SCH ×2 (15:41→20:21)
--- NOTE | 2022-07-10 19:10 | Hospitalist Progress Note ---
Date of Service July 10, 2022 Assessment & Plan (1) ABLA (acute blood loss anemia): (2) Melena: Plan: Patient is 76 y/o F with PMH GERD, anemia of chronic disease, iron deficiency anemia, B12 deficiency, h/o PUD s/p Billroth 2 and had post op gastroparesis & failed treatment then had gastrectomy in 2010, h/o Breast cancer s/p surgery and chemo, h/o bone marrow transplant, CKD III, CLEMENTINA, depression, anxiety, hypothyroidism, spinal stenosis, RLSpresented to ER with c/o melena x 2 days. Has been taking Excedrin. CT abd/pelvis showed apparent wall thickening of the cecum and proximal ascending colon. Hgb: 5.6 on admission with recent hgb 11 on 06/07/22 Heme positive stool on admission Received 3 units PRBC so far during hospital course Gastro on board S/p colonoscopy showed no no active bleeding Transition to PO PPI Continue clear liquid diet Plan for colonoscopy on Tuesday, [place] 4L to start Tuesday Continue monitor H/H, then transfuse if h/h below 7 (3) LONA (acute kidney injury): Plan: Cr: 1.5. Baseline 1.2 Creatinine 1.2 today Avoid nephrotoxic agents when possible continue monitor BMP (4) HTN (hypertension): Plan: Hold amlodipine, prazosin and monitor BP Will resume amlodipne in am Continue monitor BP (5) Diabetes mellitus, type II: Plan: A1c: 7.2 on 04/26/2022 Hold metformin NovoLog sliding scale per protocol (6) RLS (restless legs syndrome): Plan: Continue Mirapex, gabapentin (7) Hypothyroidism: Plan: Continue Levothyroxine (8) Breast cancer: Plan: S/P surgery and chemo h/o bone marrow transplant DVT Prophylaxis SCDs Full Code as per discussion with pt Follows with Dr Bishop for routine care Admission and Anticipated Discharge Date Admission Date: July 09, 2022 Subjective Pt was seen and examined for follow up of GI bleed (Black tarry stool) and weakness Standing hin her room with no acute distress Pt said that she feels alot better today She said that she has more energy Denies any chest pain, palpitation, dizziness and SOB Review of Systems Review of Systems: All systems reviewed & are unremarkable except as noted in Subjective Physical Exam Physical Exam: General- No acute distress Head- atraumatic Eyes- PERRL, EOMI, ENT- oropharynx clear Neck- supple, no JVD Lungs- clear to auscultation Heart- regular rhythm Abdomen- normal bowel sounds, soft, nontender Extremities- no calf tenderness Neuro- alert, oriented x 3; PERRL, EOMI; no facial palsy; no dysarthria Skin- warm & dry Results & Data Results & Data ([facility]) Vital Signs (Past 12 Hours) Vital Signs Temp Pulse Resp BP Pulse Ox O2 Del Method 07/10/22 18:24 36.7 C 79 17 116/56 L 99 Room Air 07/10/22 15:44 36.7 C 79 19 151/70 H 98 Room Air 07/10/22 13:30 36.6 C 98 H 18 123/68 97 Room Air 07/10/22 13:00 37.1 C 102 H 18 124/70 98 Room Air 07/10/22 12:30 36.8 C 100 H 20 126/55 L 98 Room Air 07/10/22 12:15 37.0 C 99 H 20 126/55 L 99 Room Air 07/10/22 12:00 37.0 C 78 20 123/56 L 98 Room Air 07/10/22 12:00 36.8 C 68 16 134/68 96 Room Air 07/10/22 11:35 36.8 C 85 19 104/60 100 Room Air 07/10/22 11:25 36.8 C 90 18 104/60 100 Room Air 07/10/22 11:40 36.8 C 90 16 90/54 L 99 Room Air 07/10/22 08:00 36.8 C 78 16 125/75 97 Room Air
[2022-07-10 19:21] LABS: Hematocrit (blood only) 25.3 % (34.1-44.9); Hemoglobin 8.4 g/dl (12.0-16.0)
[2022-07-10] MEDS: traZODone HCL 50 MG TAB PO SCH (21:16)
[2022-07-11] MEDS: [UNRECOGNIZED DRUG - OTHER] SCH ×3 (00:41→16:52)
[2022-07-11] MEDS ORDERED: LEVOTHYROXINE SODIUM 50 MCG TABLET PO SCH (06:30)
[2022-07-11 08:45] LABS: Hematocrit (blood only) 27.5 % (34.1-44.9); Hemoglobin 9.1 g/dl (12.0-16.0); Mean Corpuscular Hemoglobin 28.2 pg (25.0-34.0); Mean Corpuscular Hgb Conc 33.1 g/dL (32.0-36.0); Mean Corpuscular Volume 85.1 fL (80.0-100.0); Mean Platelet Volume 9.9 fL (9.4-12.3); Platelet Count 325 K/uL (130-400); RDW Coefficient of Variation 16.3 % (11.5-14.5); RDW Standard Deviation 50.3 fL (36.4-46.3); Red Blood Count 3.23 M/uL (3.93-5.22)
[2022-07-11] MEDS: MULTIVITAMIN TAB PO SCH (08:47)
[2022-07-11] MEDS: amLODIPine BESYLATE 5 MG TAB PO SCH (08:48)
[2022-07-11] MEDS: INSULIN ASPART PER UNIT SC SCH ×4 (08:49→20:05)
[2022-07-11] MEDS: PANTOprazole 40 MG TAB PO SCH (08:49)
[2022-07-11] MEDS: traMADol HCL 50 MG TABLET PO PRN ×2 (08:51→22:54)
--- NOTE | 2022-07-11 09:16 | Gastroenterology Progress Note ---
Date of Service July 11, 2022 Assessment & Plan (1) Anemia in chronic illness: Plan: Admitted with anemia and had negative EGD except s/p subtotal gastrectomy. Had colonoscopy last year but poor prep. Plan to repeat tomorrow with different prep Admission and Anticipated Discharge Date Admission Date: July 09, 2022 Subjective In good spirits Physical Exam Constitutional: WD/WN, vitals as above Results & Data ([facility]) Vital Signs (Past 12 Hours) Vital Signs Temp Pulse Pulse Resp BP BP Pulse Ox 07/11/22 07:18 36.7 C 63 18 144/69 H 100 07/11/22 04:45 36.7 C 75 18 114/67 97 07/10/22 23:00 74 07/10/22 22:48 36.6 C 70 16 121/61 97 O2 Del Method 07/11/22 07:18 Room Air 07/11/22 04:45 Room Air 07/10/22 23:00 07/10/22 22:48 Room Air
[2022-07-11 09:21] LABS: BUN Creatinine Ratio 16.4 (10-20); Calcium 8.5 mg/dl (8.5-10.1); Creatinine Clr Calc Pharmacy 36.7 ml/min; Est GFR (African American) 49.8 ml/min; Potassium 4.1 mmol/L (3.5-5.1)
[2022-07-11] MEDS: FLUTICASONE PROPIONATE NA SPR 16 GM BTL NAE SCH (10:35)
--- NOTE | 2022-07-11 14:37 | Hospitalist Progress Note ---
Date of Service July 11, 2022 Assessment & Plan (1) ABLA (acute blood loss anemia): (2) Melena: Plan: Patient is 76 y/o F with PMH GERD, anemia of chronic disease, iron deficiency anemia, B12 deficiency, h/o PUD s/p Billroth 2 and had post op gastroparesis & failed treatment then had gastrectomy in 2010, h/o Breast cancer s/p surgery and chemo, h/o bone marrow transplant, CKD III, CLEMENTINA, depression, anxiety, hypothyroidism, spinal stenosis, RLSpresented to ER with c/o melena x 2 days. Has been taking Excedrin. CT abd/pelvis showed apparent wall thickening of the cecum and proximal ascending colon. Hgb: 5.6 on admission with recent hgb 11 on 06/07/22 Heme positive stool on admission Received 3 units PRBC so far during hospital course Hgb 9.1 today Gastro on board S/p colonoscopy showed no no active bleeding Transition to PO PPI Continue clear liquid diet Plan for colonoscopy on Tuesday, [place] 4L to start tonight Continue monitor H/H, then transfuse if h/h below 7 (3) LONA (acute kidney injury): Plan: Cr: 1.5. Baseline 1.2 Creatinine 1.2 today Avoid nephrotoxic agents when possible continue monitor BMP (4) HTN (hypertension): Plan: Hold amlodipine, prazosin and monitor BP Will resume amlodipne in am Continue monitor BP (5) Diabetes mellitus, type II: Plan: A1c: 7.2 on 04/26/2022 Continue to Hold metformin NovoLog sliding scale per protocol (6) RLS (restless legs syndrome): Plan: Continue Mirapex, gabapentin (7) Hypothyroidism: Plan: Continue Levothyroxine (8) Breast cancer: Plan: S/P surgery and chemo h/o bone marrow transplant DVT Prophylaxis SCDs Full Code Admission and Anticipated Discharge Date Admission Date: July 09, 2022 Subjective Pt was seen and examined for follow up of GI bleed (Black tarry stool) and weakness Sitting at the edge of the bed with no acute distress Pt said that she feels alot better today Denies any chest pain, palpitation, dizziness and SOB Review of Systems Review of Systems: All systems reviewed & are unremarkable except as noted in Subjective Physical Exam Physical Exam: General- No acute distress Head- atraumatic Eyes- PERRL, EOMI, ENT- oropharynx clear Neck- supple, no JVD Lungs- clear to auscultation Heart- regular rhythm Abdomen- normal bowel sounds, soft, nontender Extremities- no calf tenderness Neuro- alert, oriented x 3; PERRL, EOMI; no facial palsy; no dysarthria Skin- warm & dry Results & Data Results & Data ([facility]) Vital Signs (Past 12 Hours) Vital Signs Temp Pulse Resp BP Pulse Ox O2 Del Method 07/11/22 11:38 36.7 C 92 H 20 120/60 98 Room Air 07/11/22 07:18 36.7 C 63 18 144/69 H 100 Room Air 07/11/22 04:45 36.7 C 75 18 114/67 97 Room Air
[2022-07-11] MEDS ORDERED: LAVAGE SOLUTION 4000ML PO SCH (16:30)
[2022-07-11] MEDS: rOPINIRole HCL 2 MG TABLET PO SCH (16:30)
[2022-07-12] MEDS: [UNRECOGNIZED DRUG - OTHER] SCH ×3 (00:20→15:17)
[2022-07-12] MEDS: traZODone HCL 50 MG TAB PO SCH (02:25)
[2022-07-12] MEDS: rOPINIRole HCL 2 MG TABLET PO SCH ×2 (02:26→14:49)
[2022-07-12] MEDS ORDERED: LEVOTHYROXINE SODIUM 25 MCG TABLET PO SCH (06:30)
--- NOTE | 2022-07-12 07:46 | Operative Report (OR) ---
DATE OF PROCEDURE: 07/10/2022 ATTENDING PHYSICIAN: Dr. Mulugeta Raymundo and Dr. Saritha Bishop. PREOPERATIVE DIAGNOSIS: Significant anemia. POSTOPERATIVE DIAGNOSIS: Normal postoperative stomach. SURGEON: Dr. Trevino OPERATION PERFORMED: Upper GI endoscopy. INDICATIONS FOR PROCEDURE: This 76-year-old female came into the hospital with a hemoglobin of 5. S he attempted to have EGD done yesterday, but she denied access due to anesthesia issues. We did the procedure today. DESCRIPTION OF PROCEDURE: After informed consent was obtained, the patient was brought to the operat ing room where she was placed in the left lateral decubitus position. She was sedated with propofol per anesthesia. The Olympus video endoscope was then lubricated and advanced into the patient's esop hagus. The esophagus was normal throughout its entirety. There is no blood seen. The endoscope was then advanced into the gastric remnant, which was very small. Mucosa was normal. There is no blood seen. There was increased mucus. There was mucus on the gastric mucosa, but this was washed away w ithout difficulty. The endoscope was then advanced into the blind afferent limb, which was somewhat short. And this was normal. There is no blood seen. The endoscope was then advanced into the effere nt limb. About 8 cm into the efferent limb, there was a heaped abnormal-appearing tissue. This was a little bit erythematous. There was no blood seen. The endoscope was then advanced about 80 cm wes n the efferent limb. There was some mucus deposit seen that were irrigated and were found not to be consistent with erosions. There is no active bleeding seen. There is no old blood seen. At this po int, the endoscope was removed from the patient's mouth. She is allowed to recover, having suffered no immediate ill effects from the procedure. POST-PROCEDURE SUMMARY: This 76-year-old female who was successful upper endoscopy for evaluation of significant anemia. This was unremarkable. She will have colonoscopy on Tuesday. I suspect her anem ia may be related to bypass of her duodenum and the absorptive part of the duodenum, leading to signi ficant anemia. Job ID: [id number]
[2022-07-12] MEDS: INSULIN ASPART PER UNIT SC SCH ×3 (07:50→16:59)
[2022-07-12] MEDS: amLODIPine BESYLATE 5 MG TAB PO SCH (08:11)
[2022-07-12] MEDS: FLUTICASONE PROPIONATE NA SPR 16 GM BTL NAE SCH (08:11)
[2022-07-12] MEDS: MULTIVITAMIN TAB PO SCH (08:11)
[2022-07-12] MEDS: PANTOprazole 40 MG TAB PO SCH (08:11)
--- NOTE | 2022-07-12 08:48 | History & Physical Report ---
Date of Service July 12, 2022 Assessment & Plan Admission and Anticipated Discharge Date Admission Date: July 09, 2022 History of Present Illness Chief Complaint: Anemia Primary Care Provider: Saritha Bishop, DO 76 yo fm admitted over the weekend and seen and examined by Dr. Trevino over the weekend. Admitted for anemia without over gi bleeding. History of subtotal gastrectomy in the past. S/p EGD yesterday with Dr. Trevino without findings of active bleeding. Colonoscopy was set up for today for further evaluation of anemia. Prior colonoscopy with a poor prep. She is a bit a confusing historian- saying she didn't have surgery then saying she had ulcers had a gastrectomy and then had a further abdominal surgery. Also had a hysterectomy, back surgery and hip replacement with metal in her hips and back she thinks. She reports no other acute complaints today other than not thinking she is entir nghia cleared out. She reports straining a few weeks ago and then her pcp told her to take miralax and then had been noticing some rectal bleeding- at times dark, at time bright red. That seems to have improved since admission. Allergies Allergy/AdvReac Type Severity Reaction Status Date / Time Sulfa (Sulfonamide Allergy Intermediate HIVES Verified 02/24/22 07:05 Antibiotics) metoclopramide AdvReac Intermediate depression Verified 02/24/22 07:05 Home Medications Medication Instructions Recorded Confirmed Type fluticasone propionate 50 2 spray intranasal QAM 10/15/18 07/09/22 History mcg/actuation nasal spray,suspension levothyroxine 50 mcg tablet 25 mcg PO 5XWK 10/15/18 07/09/22 History levothyroxine 50 mcg tablet 50 mcg PO 2XWK 10/15/18 07/09/22 History trazodone 50 mg tablet 50 mg PO HS 10/15/18 07/09/22 History prazosin 1 mg capsule 1 mg PO QPM 06/17/20 07/09/22 History ropinirole 4 mg tablet,extended 4 mg PO HS 06/17/20 07/09/22 History release 24 hr Wheelchair (Manual) #1 ea 01/01/21 07/09/22 Rx amlodipine 5 mg tablet 5 mg PO QAM 02/11/22 07/09/22 History multivitamin 1 tab PO QAM 02/11/22 07/09/22 History omega-3 fatty acids 1,000 mg PO DAILY 02/11/22 07/09/22 History cyclosporine 0.05 % eye drops in a 1 drp ophthalmic (eye) Q12H 07/09/22 07/09/22 History dropperette (Restasis) ferrous sulfate 15 mg iron (75 10 ml PO DAILY 07/09/22 07/09/22 History mg)/mL oral syringe (ORAL USE) food supplemt, lactose-reduced 1 ea PO DAILY 07/09/22 07/09/22 History (Ensure oral liquid) magnesium malate, chelate 1,000 mg PO DAILY 07/09/22 07/09/22 History metformin 500 mg tablet,extended 500 mg PO DAILY 07/09/22 07/09/22 History release 24 hr pcgklljr-xnk-syfypy 5 mg-zeaxanth 1 cap PO DAILY 07/09/22 07/09/22 History 1 mg-bilberry 7.5 mg-herbal capsule ([employer] Formula) tramadol 50 mg tablet 50 mg PO Q6H PRN Severe Pain 07/09/22 07/09/22 History (Scale Score 7-10) Past Med/Surg History Medical History Anemia due to chronic kidney disease pt states has issues w/ anemia last blood transfusion was 10/2021 after back sx Arthritis CKD (chronic kidney disease), stage III Diabetes mellitus, type II History of COVID-12 JUNE 2020 (HOSPITALIZED AT [facility])- denies current issues History of depression History of TMJ disorder HTN (hypertension) Hx of gastric ulcer RESULTING IN GASTRECTOMY Hx of migraines Hx of sleep apnea RESOLVED 2007 HX: breast cancer 1993- lumpectomy and chemo Hypothyroidism Lyme disease Macular degeneration Polycystic ovarian disease RLS (restless legs syndrome) Spinal stenosis Surgical History H/O Billroth II operation H/O bone marrow transplant 1993 H/O oophorectomy H/O sinus surgery History of ankle surgery LEFT (12/28/20) History of appendectomy History of cataract surgery RT/LEFT History of colonoscopy History of esophagogastroduodenoscopy (EGD) History of tonsillectomy and adenoidectomy History of total right hip replacement Hx of lumpectomy LEFT S/P spinal surgery 09/2021 [facility]- [facility] S/P subtotal gastrectomy D/T GASTRIC ULCERS Family History Father Atrial fibrillation Other No family history of adverse response to anesthesia Social History Smoking Status: Never smoker Second Hand Exposure: No; Hx Alcohol Use: No Hx Substance Use: No Preferred Language: Hungarian Communication Ability: Effective French Lecturer Required: No Beliefs That Will Affect Care: None marital status: / marital status details: within last 8-9 mo Current Living Situation: Alone Other Information That Helps Us Care for You: No Feels Safe at Home: Yes Safety Concerns: Feels Safe At This Time Assistive Devices: Glasses Review of Systems All systems reviewed & are unremarkable except as noted in HPI & below Physical Exam Physical Exam: Thin female in nad Eyes: PERRL, conjunctivae normal, anicteric sclerae Respiratory: Normal respirations Gastrointestinal (Abdomen): normal bowel sounds, soft, nontender, no hepatosplenomegaly Results & Data ([facility]) Vital Signs (Past 12 Hours) Vital Signs Temp Pulse Resp BP Pulse Ox O2 Del Method 07/12/22 08:10 36.7 C 86 18 110/56 L 97 Room Air 07/12/22 03:04 36.4 C L 88 16 149/75 H 99 Room Air 07/11/22 23:23 36.5 C 99 H 16 143/67 H 100 Room Air Laboratory Results Normocytic anemia Diagnostic Findings EGD over the weekend results reviewed Code Status & VTE Plan VTE Prophylaxis Plan VTE Prophylaxis will be ordered: Yes Supervising Physician Co-Signing Physician Notes Colonoscopy today.
--- NOTE | 2022-07-12 08:50 | Anesthesiology Consultation ---
Date of Service July 12, 2022 Assessment & Plan Chart Review Chart Review: Acceptable Risk for Surgery, Patient NOT seen in Pre Admission Testing and charge entry specialist initiated Consults Requested none History Surgery Operation Date: 07/10/22 08:50 Proposed Procedures p Esophagogastroduodenoscopy - Denver Trevino Jr, MD Operation Date: 07/12/22 16:30 Proposed Procedures p Colonoscopy EGD Dr. Miguel Rivera MD Height/Weight Height: 5 ft 6 in Weight: 64 kg Allergies Allergy/AdvReac Type Severity Reaction Status Date / Time Sulfa (Sulfonamide Allergy Intermediate HIVES Verified 02/24/22 07:05 Antibiotics) metoclopramide AdvReac Intermediate depression Verified 02/24/22 07:05 Medications Home Medications Medication Instructions Recorded Confirmed Last Taken fluticasone propionate 50 2 spray intranasal QAM 10/15/18 07/09/22 07/08/22 mcg/actuation nasal spray,suspension levothyroxine 50 mcg tablet 25 mcg PO 5XWK 10/15/18 07/09/22 07/07/22 levothyroxine 50 mcg tablet 50 mcg PO 2XWK 10/15/18 07/09/22 07/08/22 trazodone 50 mg tablet 50 mg PO HS 10/15/18 07/09/22 07/08/22 prazosin 1 mg capsule 1 mg PO QPM 06/17/20 07/09/22 02/23/22 ropinirole 4 mg tablet,extended 4 mg PO HS 06/17/20 07/09/22 07/08/22 release 24 hr Wheelchair (Manual) #1 ea 01/01/21 07/09/22 Unknown amlodipine 5 mg tablet 5 mg PO QAM 02/11/22 07/09/22 07/09/22 multivitamin 1 tab PO QAM 02/11/22 07/09/22 07/08/22 omega-3 fatty acids 1,000 mg PO DAILY 02/11/22 07/09/22 02/23/22 cyclosporine 0.05 % eye drops in a 1 drp ophthalmic (eye) Q12H 07/09/22 07/09/22 07/08/22 dropperette (Restasis) ferrous sulfate 15 mg iron (75 10 ml PO DAILY 07/09/22 07/09/22 07/08/22 mg)/mL oral syringe (ORAL USE) food supplemt, lactose-reduced 1 ea PO DAILY 07/09/22 07/09/22 Unknown (Ensure oral liquid) magnesium malate, chelate 1,000 mg PO DAILY 07/09/22 07/09/22 Unknown metformin 500 mg tablet,extended 500 mg PO DAILY 07/09/22 07/09/22 07/08/22 release 24 hr [id number]-[id number] 5 mg-zeaxanth 1 cap PO DAILY 07/09/22 07/09/22 Unknown 1 mg-bilberry 7.5 mg-herbal capsule ([employer] Formula) tramadol 50 mg tablet 50 mg PO Q6H PRN Severe Pain 07/09/22 07/09/22 Unknown (Scale Score 7-10) Active Medications Generic Name Dose Route Start Last Admin Trade Name Freq PRN Reason Stop Dose Admin Amlodipine Besylate 2.5 mg 07/10/22 09:00 07/12/22 08:11 Amlodipine Besylate 5 Mg Tab PO 08/09/22 08:59 Not Given QAM [facility] Fluticasone Propionate 2 sprays 07/10/22 09:00 07/12/22 08:11 Fluticasone Propionate Na Spr 16 Gm Btl ARCHIE 08/09/22 08:59 Not Given QAM [facility] Insulin Aspart 0 units 07/09/22 16:30 07/12/22 07:50 Insulin Aspart Per Unit SC 08/08/22 16:29 Not Given ACHS [facility] Levothyroxine Sodium 50 mcg 07/11/22 06:30 07/11/22 05:59 Levothyroxine Sodium 50 Mcg Tablet PO 08/10/22 06:29 50 mcg [id number]@0630 [facility] Administration Levothyroxine Sodium 25 mcg 07/12/22 06:30 07/12/22 06:06 Levothyroxine Sodium 25 Mcg Tablet PO 08/11/22 06:29 Not Given [id number]@0630 [facility] Miscellaneous 1 each 07/10/22 00:00 07/12/22 07:51 Order Awaiting Action [Cyclosporine [Restasis] 0.05 % Dropperette] N/A 08/09/22 00:00 Not Given QS [facility] Miscellaneous 1 each 07/10/22 00:00 07/12/22 07:51 Order Awaiting Action [Ropinirole 4 Mg Tablet Extended Release 24 Hr] N/A 08/09/22 00:00 Not Given QS MARTHA Multivitamins 1 tab 07/10/22 09:00 07/12/22 08:11 Multivitamin Tab PO 08/09/22 08:59 Not Given QAM MARTHA Pantoprazole Sodium 40 mg 07/11/22 09:00 07/12/22 08:11 Pantoprazole 40 Mg Tab PO 08/10/22 08:59 Not Given QAM MARTHA Ropinirole HCl 2 mg 07/09/22 23:30 07/12/22 02:26 Ropinirole Hcl 2 Mg Tablet PO 08/08/22 23:29 2 mg 1500,2100 MARTHA Administration Tramadol HCl 50 mg 07/09/22 21:17 07/11/22 22:54 Tramadol Hcl 50 Mg Tablet PO 08/08/22 21:16 50 mg Q6H PRN Administration Severe Pain (Scale Score 7-10) Trazodone HCl 50 mg 07/09/22 21:00 07/12/22 02:25 Trazodone Hcl 50 Mg Tab PO 08/08/22 20:59 50 mg HS MARTHA Administration NPO Date Last Intake of Fluids: 07/12/22 Time Last Intake of Fluids: 02:00 Date Last Intake of Solids: 07/05/22 Past Medical History Medical History Anemia due to chronic kidney disease pt states has issues w/ anemia last blood transfusion was 10/2021 after back sx Arthritis CKD (chronic kidney disease), stage III Diabetes mellitus, type II History of COVID-12 JUNE 2020 (HOSPITALIZED AT [facility])- denies current issues History of depression History of TMJ disorder HTN (hypertension) Hx of gastric ulcer RESULTING IN GASTRECTOMY Hx of migraines Hx of sleep apnea RESOLVED 2007 HX: breast cancer 1993- lumpectomy and chemo Hypothyroidism Lyme disease Macular degeneration Polycystic ovarian disease RLS (restless legs syndrome) Spinal stenosis Past Family History Family History Father Atrial fibrillation Other No family history of adverse response to anesthesia Past Surgical History Surgical History H/O Billroth II operation H/O bone marrow transplant 1993 H/O oophorectomy H/O sinus surgery History of ankle surgery LEFT (12/28/20) History of appendectomy History of cataract surgery RT/LEFT History of colonoscopy History of esophagogastroduodenoscopy (EGD) History of tonsillectomy and adenoidectomy History of total right hip replacement Hx of lumpectomy LEFT S/P spinal surgery 09/2021 [facility] S/P subtotal gastrectomy D/T GASTRIC ULCERS Social History Smoking Status: Never smoker Hx Alcohol Use: No Hx Substance Use: No substance use type: does not use Physical Exam Vital Signs Last Vital Signs Temp 36.7 C 07/12/22 08:10 Pulse 86 07/12/22 08:10 Resp 18 07/12/22 08:10 BP 110/56 L 07/12/22 08:10 Pulse Ox 97 07/12/22 08:10 O2 Del Method 07/12/22 08:10 Testing Laboratory Results 07/11/22 08:00 07/11/22 08:00 PT 10.1 Seconds (9.0-12.0) 07/09/22 11:05 INR 0.9 (0.9-1.1) 07/09/22 11:05 APTT 20.2 Seconds (21.0-31.0) L 07/09/22 11:05 Blood Type A Positive 07/09/22 11:05 Antibody Screen NEGATIVE 07/09/22 11:05 07/12/22 07:06 POC Glucose 118 H Electrocardiogram Date: 07/09/22 Test Reason : Blood Pressure : / mmHG Vent. Rate : 096 BPM Atrial Rate : 096 BPM P-R Int : 144 ms QRS Dur : 086 ms QT Int : 364 ms P-R-T Axes : 055 -16 038 degrees QTc Int : 459 ms Normal sinus rhythm Normal ECG When compared with ECG of 11-FEB-2021 10:52, No significant change was found Confirmed by Xavier Friend ([id number]) on 07/09/2022 2:42:27 PM Chest X-Ray Date: 07/09/22 CLINICAL HISTORY: weak, dizzy COMPARISON STUDY: Chest radiograph February 11, 2021. FINDINGS: Lung volumes are normal. Lungs are clear. Calcified density projecting over the right lower lung is likely within the anterior right fifth rib. This is unchanged and benign. There is no pneumothorax or pleural effusion. Cardiac size is normal. Mediastinal contours are normal. There is no evidence for pulmonary edema. Cholecystectomy clips are incidentally noted. IMPRESSION: No acute cardiopulmonary findings.
[2022-07-12] MEDS ORDERED: PROPOFOL IV EMULSION 10 MG/ML 20 ML VIAL IV ONE (08:54)
[2022-07-12] MEDS ORDERED: LIDOCAINE 2% MPF LOCAL 5 ML VIAL INFIL ONE (08:54)
--- NOTE | 2022-07-12 09:35 | GI REPORT ---
Patient Name: Gina Brock Procedure Date: 07/12/2022 8:54 AM Date of : 1945 Admit Type: Inpatient Age: 76 Gender: Female Attending MD: Kristyn Rivera M.d., Procedure: Colonoscopy Providers: Kristyn Rivera M.d. Referring MD: COLLEEN ANGEL Indications: Anemia Medicines: See anesthesia record Complications: No immediate complications. Estimated Blood Loss: Estimated blood loss: none. Procedure: Pre-Anesthesia Assessment: - Patient identification and proposed procedure were verified prior to the procedure by the physician, the nurse and the anesthesiologist. The procedure was verified in the pre-procedure area. - Prior to the procedure, a History and Physical was performed, and patient medications, allergies and sensitivities were reviewed. The patient's tolerance of previous anesthesia was reviewed. - The risks and benefits of the procedure and the sedation options and risks were discussed with the patient. All questions were answered and informed consent was obtained. After I obtained informed consent, the scope was passed under direct vision. Throughout the procedure, the patient's blood pressure, pulse, and oxygen saturations were monitored continuously. The Colonoscope was introduced through the anus and advanced to the terminal ileum. The colonoscopy was performed without difficulty. The quality of the bowel preparation was fair. Findings: The examined distal most aspect of the terminal ileum appeared normal. The examined colon appeared normal - however there was liquid prep still present that appeared dark. No active bleeding was noted. Internal hemorrhoids were found during retroflexion. Impression: - The examined portion of the terminal ileum appeared normal. - The examined colon appeared normal - as noted above, no active bleeding was noted. - Internal hemorrhoids. Recommendation: - Return to floor. No further plans for scopes at this time. Would consider daily PPI and advance diet as tolerated. Serge Larson M.d. 07/12/2022 9:35:06 AM This report has been signed electronically. Note Initiated On: 07/12/2022 8:54 AM Number of Addenda: 0 I attest to the content of the Intraoperative Record and orders documented therein, exceptions below {[id number]}
--- NOTE | 2022-07-12 09:36 | Communication Note ---
Date of Service: July 12, 2022 Colonoscopy completed today without findings of overt bleeding. Fair prep with mild dark appearance to prep. Hemorrhoids were present. Given egd was done yesterday, not repeated today. PPI daily. Advance diet as tolerated. Call if questions.
--- NOTE | 2022-07-12 10:59 | Anesthesiology Progress Note ---
Date of Service July 12, 2022 Anesthesia Post Procedure Vital Signs Vital Signs: Temp Pulse Resp BP Pulse Ox Pulse Ox O2 Del Method 07/12/22 10:29 36.4 C L 69 18 143/70 H 97 Room Air 07/12/22 10:04 75 1 L 132/58 L 97 Room Air 07/12/22 09:48 82 16 118/57 L 97 Room Air 07/12/22 09:34 86 16 91/47 L 98 Room Air 07/12/22 08:10 36.7 C 86 18 110/56 L 97 Room Air 07/12/22 03:04 36.4 C L 88 16 149/75 H 99 Room Air 07/11/22 23:23 36.5 C 99 H 16 143/67 H 100 Room Air 07/11/22 20:00 99 07/11/22 19:05 36.5 C 68 18 148/71 H 99 Room Air 07/11/22 15:22 36.9 C 77 20 126/73 100 Room Air 07/11/22 11:38 36.7 C 92 H 20 120/60 98 Room Air O2 Del Method 07/12/22 10:29 07/12/22 10:04 07/12/22 09:48 07/12/22 09:34 07/12/22 08:10 07/12/22 03:04 07/11/22 23:23 07/11/22 20:00 Room Air 07/11/22 19:05 07/11/22 15:22 07/11/22 11:38 Pain Intensity Bilateral Other: Pain Intensity: 4 Transfer of Care Handoff Completed per policy Notes Mental Status: alert / awake / arousable and participated in evaluation Patient Amnestic to Procedure: Yes Nausea / Vomiting: adequately controlled Pain: adequately controlled Airway Patency, RR, SpO2: stable & adequate BP & HR: stable & adequate Hydration State: stable & adequate Anesthetic Complications: no major complications apparent and Pt Satisfied with anesthetic care
[2022-07-12 11:33] LABS: Hematocrit (blood only) 26.9 % (34.1-44.9); Hemoglobin 8.7 g/dl (12.0-16.0); Mean Corpuscular Hemoglobin 27.5 pg (25.0-34.0); Mean Corpuscular Hgb Conc 32.3 g/dL (32.0-36.0); Mean Corpuscular Volume 85.1 fL (80.0-100.0); Mean Platelet Volume 9.4 fL (9.4-12.3); Platelet Count 344 K/uL (130-400); RDW Coefficient of Variation 15.4 % (11.5-14.5); Red Blood Count 3.16 M/uL (3.93-5.22); White Blood Count 4.77 K/ul (4.8-10.8)
[2022-07-12] MEDS: traMADol HCL 50 MG TABLET PO PRN (11:47)
[2022-07-12 11:56] LABS: BUN Creatinine Ratio 11.7 (10-20); Calcium 8.1 mg/dl (8.5-10.1); Creatinine Clr Calc Pharmacy 47.7 ml/min; Est GFR (African American) 68.3 ml/min; Est GFR (Non-African American) 58.9 ml/min; Magnesium 2.2 mg/dl (1.7-2.4); Potassium 3.6 mmol/L (3.5-5.1)
--- NOTE | 2022-07-18 22:47 | Discharge Summary ---
Date of Service July 12, 2022 Admission HPI Per Admitting Provider 76 yo fm admitted over the weekend and seen and examined by Dr. Trevino over the weekend. Admitted for anemia without over gi bleeding. History of subtotal gastrectomy in the past. S/p EGD yesterday with Dr. Trevino without findings of active bleeding. Colonoscopy was set up for today for further evaluation of anemia. Prior colonoscopy with a poor prep. She is a bit a confusing historian- saying she didn't have surgery then saying she had ulcers had a gastrectomy and then had a further abdominal surgery. Also had a hysterectomy, back surgery and hip replacement with metal in her hips and back she thinks. She reports no other acute complaints today other than not thinking she is entirely cleared out. She reports straining a few weeks ago and then her pcp told her to take miralax and then had been noticing some rectal bleeding- at times dark, at time bright red. That seems to have improved since admission. Discharge Exam General- No acute distress Head- atraumatic Eyes- PERRL, EOMI, ENT- oropharynx clear Neck- supple, no JVD Lungs- clear to auscultation Heart- regular rhythm Abdomen- normal bowel sounds, soft, nontender Extremities- no calf tenderness Neuro- alert, oriented x 3; PERRL, EOMI; no facial palsy; no dysarthria Skin- warm & dry Discharge Data Allergies Allergy/AdvReac Type Severity Reaction Status Date / Time Sulfa (Sulfonamide Allergy Intermediate HIVES Verified 02/24/22 07:05 Antibiotics) metoclopramide AdvReac Intermediate depression Verified 02/24/22 07:05 Consultations 07/09/22 12:33 ED Decision to Admit Stat 07/09/22 16:22 Consult Gastroenterology Routine Procedures Performed Operation Date: 07/10/22 08:50 Actual Procedures p Esophagogastroduodenoscopy(Not Applicable) - Denver Trevino Jr, MD Operation Date: 07/12/22 16:30 Actual Procedures p Colonoscopy - Kristyn Rivera MD Ordered Studies 07/09/22 10:57 CT abd pelvis wo con Stat Hospital Course (1) ABLA (acute blood loss anemia): (2) Melena: Patient is 76 y/o F with PMH GERD, anemia of chronic disease, iron deficiency anemia, B12 deficiency, h/o PUD s/p Billroth 2 and had post op gastroparesis & failed treatment then had gastrectomy in 2010, h/o Breast cancer s/p surgery and chemo, h/o bone marrow transplant, CKD III, CLEMENTINA, depression, anxiety, hypothyroidism, spinal stenosis, RLSpresented to ER with c/o melena x 2 days. Has been taking Excedrin. CT abd/pelvis showed apparent wall thickening of the cecum and proximal ascending colon. Hgb: 5.6 on admission with recent hgb 11 on 06/07/22 Heme positive stool on admission Received 3 units PRBC so far during hospital course Hgb 9.1 today Gastro on board S/p colonoscopy showed no no active bleeding Transition to PO PPI Continue clear liquid diet Plan for colonoscopy on Tuesday, [place] 4L to start tonight Continue monitor H/H, then transfuse if h/h below 7 (3) LONA (acute kidney injury): Cr: 1.5. Baseline 1.2 Creatinine 1.2 today Avoid nephrotoxic agents when possible continue monitor BMP (4) HTN (hypertension): Hold amlodipine, prazosin and monitor BP Will resume amlodipne in am Continue monitor BP (5) Diabetes mellitus, type II: A1c: 7.2 on 04/26/2022 Continue to Hold metformin NovoLog sliding scale per protocol (6) RLS (restless legs syndrome): Continue Mirapex, gabapentin (7) Hypothyroidism: Continue Levothyroxine (8) Breast cancer: S/P surgery and chemo h/o bone marrow transplant DVT Prophylaxis SCDs Full Code Discharge Plan Discharge Items Patient Disposition: Home - Self-Care Reason For Visit: anemia Discharge Diagnosis: ABLA (acute blood loss anemia): Melena: LONA (acute kidney injury): HTN (hypertension): Diabetes mellitus, type II: RLS (restless legs syndrome): Hypothyroidism: Breast cancer: Activity: Resume your previous activity Non-emergency contact: Primary Care Provider Call non-emergency contact if: you have any medication questions Follow-up/Referrals: Saritha Bishop DO [Primary Care Provider] - 07/16/22 7:20 am (Date & Time 07/16/2022 7:20 AM Provider Amparo Ochoa PA-C Department [facility] ) Diet: Heart Healthy Addtl Attending Provider Instructions: Follow up with your primary care provider within 1 week Check CBC within 1 week to monitor your hemoglobin ( your provider will order it) Avoid any NSAID such as motrin, aleve, Ibuprofen, Naproxen, Advil due to risk of bleeding Fall precaution Seek medical attention if you develop any blood in your stool Amlodipine decreased to 2.5 mg daily since your blood pressure has been running good Hold on Prazosin for now Continue monitor your blood pressure. Your provider will advise you when to resume the Prazosin Pending Studies at Discharge: No Stand-Alone Forms: My [facility], Smoking Cessation Medications and DC Order Prescriptions: New pantoprazole 40 mg Tablet,Delayed Release (Dr/Ec) 40 mg PO QAM Qty: 30 0RF Continued (DME) Wheelchair (Manual) Device See Rx Instructions .MEDSUPPLY Qty: 1 0RF Rx Instructions: As directed trazodone 50 mg tablet 50 mg PO HS levothyroxine 50 mcg tablet 50 mcg PO 2XWK Label Comments: Patient states she was just in here because she was scheduled for surgery and someone went over her medications, everything is correct and nothing has changed. Rx Instructions: Take on Sun, Thur levothyroxine 50 mcg tablet 25 mcg PO 5XWK Rx Instructions: Take on Mon, Tue, Wed, Fri, Sat fluticasone propionate 50 mcg/actuation spray,suspension 2 spray intranasal QAM ropinirole 4 mg tablet extended release 24 hr 4 mg PO HS metformin 500 mg tablet extended release 24 hr 500 mg PO DAILY ferrous sulfate 15 mg iron (75 mg)/mL Syringe 10 ml PO DAILY magnesium malate, chelate 125 mg magnesium Capsule 1,000 mg PO DAILY Rx Instructions: Magnesium Malate 100mg tab tramadol 50 mg tablet 50 mg PO Q6H PRN (Reason: Severe Pain (Scale Score 7-10)) cyclosporine [Restasis] 0.05 % Dropperette 1 drp OPHTHALMIC (EYE) Q12H Ensure Liquid 1 ea PO DAILY Macular Health Formula 5-1-7.5 mg Capsule 1 cap PO DAILY multivitamin Tablet 1 tab PO QAM omega-3 fatty acids Capsule 1,000 mg PO DAILY Changed amlodipine 5 mg Tablet 2.5 mg PO QAM 30 Days Qty: 15 0RF Discontinued prazosin 1 mg capsule 1 mg PO QPM Rx Instructions: takes every other day No Action amoxicillin 500 mg tablet 2,000 mg PO ONCE Qty: 4 3RF Rx Instructions: 4 tabs 1 hour prior to procedure Discharge Orders: Discharge Order (Routine); Ordered 07/12/22 Ordered By: Cathelen Delgado Admission Data Admit Date/Time: 07/09/22 13:16 Attending Provider: Cathleen Delgado Admit Provider: Bernardo Vines Primary Care Provider: Saritha Bishop Other Providers: Bernardo Vines ; Mulugeta Raymundo Other Interventions: Discharge Summary Assessment (RN) Last Done: 07/12/22 17:20
== END 2022-07-12 18:08 | disposition home or self-care (01) | DRG 378 ==
LOC: ED 10:34 → 2S 13:16 → SUATTDRO 13:16 → 2S 15:45

== ENCOUNTER 2022-07-20 15:20 | Inpatient (IN) ==
[2022-07-20 16:31] LABS: Hematocrit (blood only) 17.8 % (34.1-44.9); Hemoglobin 5.3 g/dl (12.0-16.0); Mean Corpuscular Hgb Conc 29.8 g/dL (32.0-36.0); Mean Corpuscular Volume 87.3 fL (80.0-100.0); Mean Platelet Volume 9.6 fL (9.4-12.3); Platelet Count 379 K/uL (130-400); RDW Coefficient of Variation 14.6 % (11.5-14.5); RDW Standard Deviation 46.7 fL (36.4-46.3); Red Blood Count 2.04 M/uL (3.93-5.22); White Blood Count 5.09 K/ul (4.8-10.8)
[2022-07-20 16:39] LABS: Albumin Globulin Ratio 1.4 (0.9-2); Albumin Level 3.1 gm/dl (3.4-5.0); BUN Creatinine Ratio 26.1 (10-20); Bilirubin,Total 0.2 mg/dl (0.2-1.0); Calcium 7.7 mg/dl (8.5-10.1); Creatinine Clr Calc Pharmacy 39.6 ml/min; Est GFR (African American) 55.9 ml/min; Est GFR (Non-African American) 48.2 ml/min; Globulin 2.2 gm/dl (2.5-4.0); Potassium 3.9 mmol/L (3.5-5.1); Total Protein 5.3 gm/dl (6.0-8.3)
--- NOTE | 2022-07-20 16:51 | Emergency Department Note ---
Impression & Plan Symptomatic anemia, Weakness ED Provider Note NAME: GIDEON NELSON AGE: 76 SEX: F : 1945 ARRIVES VIA: Walk-In INFORMANT: Patient, ED PROVIDER(S): Marko Lyon MD Chief Complaint: Abnormal blood work, outpatient referral HPI: Patient states that she had blood work completed earlier today in anticipation of a follow-up with her primary care doctor on . This was after the patient did have a recent admission for anemia and did require blood transfusions. Was presumptive that the patient had a GI bleed as the patient did have some dark stools at that time but this is since resolved. Patient states that she had a negative endoscopy and colonoscopy they stated that the patient may benefit from a capsule endoscopy study. The patient has complained of some increasing fatigue shortness of breath and lightheadedness. No cough or fever. Patient has any chest pains. They have noted some leg swelling which is new compared to prior the patient has poor appetite does not eat a lot of pro tein. Patient denies any headache or neck pain. Patient denies any falls or trauma. No bright red blood per rectum hematemesis or dark tarry stools. The patient denies any additional exacerbating remitting factors. MDM: Patient was seen due to concern for outpatient blood work significant for a nemia. The patient does not currently take any blood thinning medications. Patient did relate that she has remote history of a BMT in the past. Blood work was obtained. Hemoglobin shows 5.3. Patient has normal white count and platelet count. Kidney function grossly unremarkable. Patient was ordered type and screen type and cross for 2 units of PRBCs and the patient was consented for blood. Calcium slightly low. Rectal exam was performed and was heme-negative. I did speak the on-call hospitalist Kayce Thurston PA-C and the patient was admitted by Dr. Terrell. Patient did have some leg swelling but this appears to be symmetric without any signs of asymmetry or calf pain. Do not believe the patient requires ultrasound this time. The patient does have low protein and albumin which may also be contributory. Critical Care: I have personally spent 42 minutes of critical care time in direct management of this patient. This includes bedside care, interpretation of diagnostic studies, and testing, discussion with consultants, patient, and family members, and other require inpatient management activities. This 42 minutes is in excess of all separately billable procedures. ROS: See HPI for pertinent positives and negatives. A total of 10 systems were reviewed and otherwise negative. Past medical history: See below Surgical history: See below Social history: See below Physical Exam: GENERAL: NAD, wearing a mask, non-toxic. EYE EXAM: Normal conjunctiva. PERRL, no anisocoria and EOM's grossly intact w/o pain. NECK: Supple, no nuchal rigidity, no adenopathy, non-tender. No signs of meningismus. FROM of the neck with good chin to chest and neck extension. No stridor. LUNGS: Clear to auscultation. Normal chest wall mechanics. HEART: NSR, no MRG. ABDOMEN: Abdomen soft, non-tender, normo-active bowel sounds, no masses, no rebound or guarding. BACK: No CVA TTP. SKIN: No rashes and no bruising. UPPER EXTREMITIES: Upper extremities are grossly normal. LOWER EXTREMITIES: Grossly normal, no edema. NEURO EXAM: A&O x3, cranial nerves II-XII grossly intact, normal speech, moves all 4 extremities. Differential diagnoses: IGI bleeding, anemia, infection, dehydration, metabolic abnormality, hypo/hyperglycemia, electrolyte disturbance, anemia, hypoxia, cardiac sources, intracerebral event, toxicologic, neurologic, as well as other pathologies. Course: Patient was seen and evaluated the bedside. Full history physical exam was performed. EKG interpreted by me Normal sinus rhythm, rate of 53 normal intervals normal axis no ST elevations or T WI. Imaging Studies: See Below Cardiac monitoring: An order was placed for continuous cardiac monitoring. The monitor shows a rate of 82 with sinus rhythm. Past Med/Surg History Medical History Anemia due to chronic kidney disease pt states has issues w/ anemia last blood transfusion was 10/2021 after back sx Arthritis CKD (chronic kidney disease), stage III Diabetes mellitus, type II History of COVID-12 JUNE 2020 (HOSPITALIZED AT [facility])- denies current issues History of depression History of TMJ disorder HTN (hypertension) Hx of gastric ulcer RESULTING IN GASTRECTOMY Hx of migraines Hx of sleep apnea RESOLVED 2007 HX: breast cancer 1993- lumpectomy and chemo Hypothyroidism Lyme disease Macular degeneration Polycystic ovarian disease RLS (restless legs syndrome) Spinal stenosis Surgical History H/O Billroth II operation H/O bone marrow transplant 1993 H/O oophorectomy H/O sinus surgery History of ankle surgery LEFT (12/28/20) History of appendectomy History of cataract surgery RT/LEFT History of colonoscopy History of esophagogastroduodenoscopy (EGD) History of tonsillectomy and adenoidectomy History of total right hip replacement Hx of lumpectomy LEFT S/P spinal surgery 09/2021 [facility] S/P subtotal gastrectomy D/T GASTRIC ULCERS Family History Father Atrial fibrillation Other No family history of adverse response to anesthesia Social History Smoking Status: Never smoker Second Hand Exposure: No; Do You Dip or Chew Tobacco: No; Tobacco Cessation Education Requested by Patient: No Hx Alcohol Use: No Hx Substance Use: No Preferred Language: Italian Communication Ability: Effective Legal Cashier Required: No Beliefs That Will Affect Care: None marital status: / marital status details: within last 8-9 mo Current Living Situation: Alone Other Information That Helps Us Care for You: No Feels Safe at Home: Yes Safety Concerns: Feels Safe At This Time Assistive Devices: Glasses Allergies Allergies Allergy/AdvReac Type Severity Reaction Status Date / Time Sulfa (Sulfonamide Allergy Intermediate HIVES Verified 07/20/22 17:12 Antibiotics) metoclopramide AdvReac Intermediate depression Verified 07/20/22 17:12 Home Meds Home Medications Medication Instructions Recorded Confirmed fluticasone propionate 50 2 spray intranasal QAM 10/15/18 07/20/22 mcg/actuation nasal spray,suspension levothyroxine 50 mcg tablet 25 mcg PO 5XWK 10/15/18 07/20/22 levothyroxine 50 mcg tablet 50 mcg PO 2XWK 10/15/18 07/20/22 trazodone 50 mg tablet 50 mg PO HS 10/15/18 07/20/22 ropinirole 4 mg tablet,extended 4 mg PO HS 06/17/20 07/20/22 release 24 hr multivitamin 1 tab PO QAM 02/11/22 07/20/22 cyclosporine 0.05 % eye drops in a 1 drp ophthalmic (eye) Q12H 07/09/22 07/20/22 dropperette (Restasis) ferrous sulfate 15 mg iron (75 10 ml PO DAILY 07/09/22 07/20/22 mg)/mL oral syringe (ORAL USE) food supplemt, lactose-reduced 1 ea PO DAILY 07/09/22 07/20/22 (Ensure oral liquid) magnesium malate, chelate 1,000 mg PO DAILY 07/09/22 07/20/22 [id number] 5 mg-zeaxanth 1 cap PO DAILY 07/09/22 07/20/22 1 mg-bilberry 7.5 mg-herbal capsule ([facility] Formula) tramadol 50 mg tablet 50 mg PO Q6H PRN Severe Pain 07/09/22 07/20/22 (Scale Score 7-10) amoxicillin 500 mg tablet 2,000 mg PO DIRECTED PRN PRIOR 07/20/22 07/20/22 TO PROCEDURE omega-3 fatty acids 1,000 mg 1,000 mg PO DAILY 07/20/22 07/20/22 capsule Previous Rx's Medication Instructions Recorded Wheelchair (Manual) #1 ea 01/01/21 amlodipine 5 mg tablet 2.5 mg PO QAM 30 days #15 tabs 07/12/22 pantoprazole 40 mg tablet,delayed 40 mg PO QAM #30 tabs 07/12/22 release Results & Data (ED) Vital Signs Vital Signs - 24 hr 07/20/22 15:52 07/20/22 16:53 07/20/22 16:56 Temperature 36.2 C L Temperature Source Oral Pulse Rate 117 H 88 Pulse Rate [Apical] 93 H Pulse Rate from SpO2 Sensor 85 Pulse Rhythm [Apical] Regular Respiratory Rate 18 16 17 Respiratory Effort / Characteristics Non-Labored Spontaneous Non-Labored Respiratory Depth Normal Normal Respiratory Pattern Regular Blood Pressure 166/81 H Blood Pressure [Left Arm] 139/77 Blood Pressure Mean 109 Blood Pressure Mean [Left Arm] 97 Blood Pressure Position Sitting Pulse Oximetry 98 100 100 Oxygen Delivery Method Room Air Room Air Sepsis Recent Fever Within 48 Hours No Sepsis New/Unexplained Change in Mental Status No Sepsis Action Taken by Nursing No Action Required 07/20/22 17:00 07/20/22 17:00 Temperature Temperature Source Pulse Rate 87 Pulse Rate [Apical] Pulse Rate from SpO2 Sensor 86 Pulse Rhythm [Apical] Respiratory Rate 27 H Respiratory Effort / Characteristics Respiratory Depth Respiratory Pattern Blood Pressure 138/78 Blood Pressure [Left Arm] Blood Pressure Mean 98 Blood Pressure Mean [Left Arm] Blood Pressure Position Pulse Oximetry 99 Oxygen Delivery Method Sepsis Recent Fever Within 48 Hours Sepsis New/Unexplained Change in Mental Status Sepsis Action Taken by Prison Medications Current Medication List: was personally reviewed by me Laboratory Data Attestation: I reviewed the patient's lab results. Result diagrams: 07/21/22 05:21 07/21/22 05:21 Lab Results 07/20/22 07/20/22 07/20/22 Range/Units 16:12 16:12 16:12 WBC 5.09 (4.8-10.8) K/ul RBC 2.04 L (3.93-5.22) M/uL Hgb 5.3 L* (12.0-16.0) g/dl Hct 17.8 L* (34.1-44.9) % MCV 87.3 (80.0-100.0) fL MCH 26.0 (25.0-34.0) pg MCHC 29.8 L (32.0-36.0) g/dL RDW Std Deviation 46.7 H (36.4-46.3) fL RDW Coeff of Tatiana 14.6 H (11.5-14.5) % Plt Count 379 (130-400) K/uL MPV 9.6 (9.4-12.3) fL PT Cancelled INR Cancelled APTT Cancelled PTT Ratio Cancelled Sodium (136-145) mmol/L Potassium (3.5-5.1) mmol/L Chloride (98-107) mmol/L Carbon Dioxide (21-32) mmol/L Anion Gap (3-11) BUN (6-23) mg/dl Creatinine (0.6-1.2) mg/dl Est Cr Clr Drug Dosing ml/min Est GFR ( Amer) ml/min Est GFR (Non-Af Amer) ml/min BUN/Creatinine Ratio (10-20) Glucose (70-99(Fasting)) mg/dl Calcium (8.5-10.1) mg/dl Total Bilirubin (0.2-1.0) mg/dl AST (13-39) U/L ALT (7-52) U/L Alkaline Phosphatase (34-104) U/L Total Protein (6.0-8.3) gm/dl Albumin (3.4-5.0) gm/dl Globulin (2.5-4.0) gm/dl Albumin/Globulin Ratio (0.9-2) SARS-CoV-2, RNA, NAAT (NEGATIVE) Blood Type A Positive Antibody Screen NEGATIVE Crossmatch See Detail 07/20/22 07/20/22 Range/Units 16:12 17:15 WBC (4.8-10.8) K/ul RBC (3.93-5.22) M/uL Hgb (12.0-16.0) g/dl Hct (34.1-44.9) % MCV (80.0-100.0) fL MCH (25.0-34.0) pg MCHC (32.0-36.0) g/dL RDW Std Deviation (36.4-46.3) fL RDW Coeff of Tatiana (11.5-14.5) % Plt Count (130-400) K/uL MPV (9.4-12.3) fL PT INR APTT PTT Ratio Sodium 141 (136-145) mmol/L Potassium 3.9 (3.5-5.1) mmol/L Chloride 112 H (98-107) mmol/L Carbon Dioxide 22 (21-32) mmol/L Anion Gap 7 (3-11) BUN 29 H (6-23) mg/dl Creatinine 1.11 (0.6-1.2) mg/dl Est Cr Clr Drug Dosing 39.6 ml/min Est GFR ( Amer) 55.9 ml/min Est GFR (Non-Af Amer) 48.2 ml/min BUN/Creatinine Ratio 26.1 H (10-20) Glucose 89 (70-99(Fasting)) mg/dl Calcium 7.7 L (8.5-10.1) mg/dl Total Bilirubin 0.2 (0.2-1.0) mg/dl AST 21 (13-39) U/L ALT 25 (7-52) U/L Alkaline Phosphatase 74 (34-104) U/L Total Protein 5.3 L (6.0-8.3) gm/dl Albumin 3.1 L (3.4-5.0) gm/dl Globulin 2.2 L (2.5-4.0) gm/dl Albumin/Globulin Ratio 1.4 (0.9-2) SARS-CoV-2, RNA, NAAT NEGATIVE (NEGATIVE) Blood Type Antibody Screen Crossmatch Administered Medications Pantoprazole Sodium 40 mg/ (Syringe) 10 mls @ 5 mls/min IV BID [facility] Stop: 08/19/22 20:59 Last Admin: 07/21/22 10:03 Dose: 5 mls/min Documented By: Admin: 07/20/22 23:42 Dose: 5 mls/min Documented By: TAHMINA Insulin Aspart (Insulin Aspart Per Unit) 0 units SC Q6 [facility] Stop: 08/20/22 05:59 Last Admin: 07/21/22 06:21 Dose: Not Given Documented By: CHARLINE Levothyroxine Sodium (Levothyroxine Sodium 25 Mcg Tablet) 25 mcg PO [id number] [facility] Stop: 08/20/22 06:29 Last Admin: 07/21/22 06:20 Dose: 25 mcg Documented By: CHARLINE Tramadol HCl (Tramadol Hcl 50 Mg Tablet) 50 mg PO Q6H PRN PRN Reason: Severe Pain (Scale Score 7-10) Stop: 08/19/22 19:31 Last Admin: 07/20/22 23:51 Dose: 50 mg Documented By: CHARLINE Trazodone HCl (Trazodone Hcl 50 Mg Tab) 50 mg PO HS [facility] Stop: 08/19/22 20:59 Last Admin: 07/20/22 23:42 Dose: 50 mg Documented By: TAHMINA Discontinued Medications Insulin Aspart (Insulin Aspart Per Unit) 0 units SC ACHS [facility] Stop: 08/19/22 20:59 Last Admin: 07/20/22 23:36 Dose: 1 units Documented By: TAHMINA Co-signed By: CHARLINE Miscellaneous Information (Nursing To Pharmacy Communication) 1 each N/A TODAY [facility] Stop: 08/20/22 02:59 Last Admin: 07/21/22 03:21 Dose: Not Given Documented By: CHARLINE Discharge Plan Visit Data Chief Complaint: Abnormal Labs/Diagnostic Testing Stated Complaint: LOW BLOOD COUNT ED Provider: Marko Lyon Discharge Problem: Symptomatic anemia, Weakness Patient Disposition: Admitted As Inpatient Discharge Instructions Interventions: ED Discharge Assessment Last Done: 07/20/22 19:16
[2022-07-20] MEDS ORDERED: SODIUM CHLORIDE 0.9% 250 ML IV PRN (16:58)
--- NOTE | 2022-07-20 17:23 | History & Physical Report ---
Date of Service July 20, 2022 Assessment & Plan (1) Symptomatic anemia: (2) Diabetes mellitus, type II: (3) HTN (hypertension): (4) Depression with anxiety: (5) Breast cancer: (6) CKD (chronic kidney disease), stage III: Plan This is a 76yo F with PMH of breast CA s/p chemo/surgery and bone marrow transplantation in 1993, h/o PUD s/p Billroth 2 and had post op gastroparesis & failed treatment then had gastrectomy in 2010, HTN, CKD III, GERD, CLEMENTINA, depression, hypothyroidism, spinal stenosis, RLS and other medical problems listed below who presents to the ED with lightheadedness and generalized weakness and found to have symptomatic anemia. Symptomatic anemia Concern for GI Bleed Recent admission for severe anemia requiring 3u prbc transfusion GI consulted and EGD on 07/[address] Trevino was unremarkable and colonoscopy on 07/12 did not show signs of active bleeding Per GI, suspect anemia may be related to bypass of duodenum leading to significant anemia. Discharged home on protonix Black stools have resolved but persistent dyspnea on exertion and lightheadedness, found to have hgb of 5 on outpatient labwork and directed to ED Type & crossed and ordered for 2u prbcs Repeat H&H at 2200 FOBT GI consult placed, NPO @ [facility] Protonix IV BID DM II Recently self-discontinued metformin due to s/e of cramping A1c 7.2 in April 2022 Planning to control with diet SSI while in-patient Diabetic education BSG AC HS CKD III Cr 1.1 (at baseline). Avoid nephrotoxic agents when possible. Monitor BMP HTN Hold amlodipine as likely contributing to BLE edema Continue prazosin and monitor BP RLS (restless legs syndrome) Continue Mirapex HS Hypothyroidism Continue Levothyroxine History of breast cancer S/P surgery and chemo H/o bone marrow transplant DVT Ppx: SCDs for now Code status: FULL PCP: Dario Dispo: Admitted to PCU Patient seen in collaboration with Dr. Terrell. Please see addendum. History of Present Illness Chief Complaint: symptomatic anemia, GI bleed Primary Care Provider: Saritha Bishop, DO This is a 76yo F with PMH of breast CA s/p chemo/surgery and bone marrow transplantation in 1993, h/o PUD s/p Billroth 2 and had post op gastroparesis & failed treatment then had gastrectomy in 2010, HTN, CKD III, GERD, CLEMENTINA, depression, hypothyroidism, spinal stenosis, RLS and other medical problems listed below who presents to the ED with lightheadedness and generalized weakness. Was admitted a few weeks ago for symptomatic anemia requiring 3u prbcs during admission. EGD by Dr. Trevino was unremarkable and colonoscopy did not show signs of active bleeding. Suspect anemia may be related to bypass of duodenum leading to significant anemia. Discharged home on protonix. States black stools have resolved 5 days ago and are now formed and brown. Has felt progressively weak since discharge and endorses dyspnea on exertion and lightheadedness. Continues to have poor appetite. Had outpatient labwork today and was directed to return to ED with low hemoglobin. Denies fever, chills, lightheadedness, nausea, vomiting, abdominal pain, dysuria, diarrhea or constipation. Allergies Allergy/AdvReac Type Severity Reaction Status Date / Time Sulfa (Sulfonamide Allergy Intermediate HIVES Verified 07/20/22 17:12 Antibiotics) metoclopramide AdvReac Intermediate depression Verified 07/20/22 17:12 Home Medications Medication Instructions Recorded Confirmed Type fluticasone propionate 50 2 spray intranasal QAM 10/15/18 07/20/22 History mcg/actuation nasal spray,suspension levothyroxine 50 mcg tablet 25 mcg PO 5XWK 10/15/18 07/20/22 History levothyroxine 50 mcg tablet 50 mcg PO 2XWK 10/15/18 07/20/22 History trazodone 50 mg tablet 50 mg PO HS 10/15/18 07/20/22 History ropinirole 4 mg tablet,extended 4 mg PO HS 06/17/20 07/20/22 History release 24 hr Wheelchair (Manual) #1 ea 01/01/21 07/20/22 Rx multivitamin 1 tab PO QAM 02/11/22 07/20/22 History cyclosporine 0.05 % eye drops in a 1 drp ophthalmic (eye) Q12H 07/09/22 07/20/22 History dropperette (Restasis) ferrous sulfate 15 mg iron (75 10 ml PO DAILY 07/09/22 07/20/22 History mg)/mL oral syringe (ORAL USE) food supplemt, lactose-reduced 1 ea PO DAILY 07/09/22 07/20/22 History (Ensure oral liquid) magnesium malate, chelate 1,000 mg PO DAILY 07/09/22 07/20/22 History frhmmibt-[id number]-ztnklt 5 mg-zeaxanth 1 cap PO DAILY 07/09/22 07/20/22 History 1 mg-bilberry 7.5 mg-herbal capsule ([facility] Formula) tramadol 50 mg tablet 50 mg PO Q6H PRN Severe Pain 07/09/22 07/20/22 History (Scale Score 7-10) amlodipine 5 mg tablet 2.5 mg PO QAM 30 days #15 tabs 07/12/22 07/20/22 Rx pantoprazole 40 mg tablet,delayed 40 mg PO QAM #30 tabs 07/12/22 07/20/22 Rx release amoxicillin 500 mg tablet 2,000 mg PO DIRECTED PRN PRIOR 07/20/22 07/20/22 History TO PROCEDURE omega-3 fatty acids 1,000 mg 1,000 mg PO DAILY 07/20/22 07/20/22 History capsule Past Med/Surg History Medical History Anemia due to chronic kidney disease pt states has issues w/ anemia last blood transfusion was 10/2021 after back sx Arthritis CKD (chronic kidney disease), stage III Diabetes mellitus, type II History of COVID-12 JUNE 2020 (HOSPITALIZED AT [facility])- denies current issues History of depression History of TMJ disorder HTN (hypertension) Hx of gastric ulcer RESULTING IN GASTRECTOMY Hx of migraines Hx of sleep apnea RESOLVED 2007 HX: breast cancer 1993- lumpectomy and chemo Hypothyroidism Lyme disease Macular degeneration Polycystic ovarian disease RLS (restless legs syndrome) Spinal stenosis Surgical History H/O Billroth II operation H/O bone marrow transplant 1993 H/O oophorectomy H/O sinus surgery History of ankle surgery LEFT (12/28/20) History of appendectomy History of cataract surgery RT/LEFT History of colonoscopy History of esophagogastroduodenoscopy (EGD) History of tonsillectomy and adenoidectomy History of total right hip replacement Hx of lumpectomy LEFT S/P spinal surgery 09/2021 lumbar- [facility] S/P subtotal gastrectomy D/T GASTRIC ULCERS Family History Father Atrial fibrillation Other No family history of adverse response to anesthesia Social History Smoking Status: Never smoker Second Hand Exposure: No; Hx Alcohol Use: No Hx Substance Use: No Preferred Language: Palestinian Communication Ability: Effective Rn Nursery Required: No Beliefs That Will Affect Care: None marital status: / marital status details: within last 8-9 mo Current Living Situation: Alone Feels Safe at Home: Yes Assistive Devices: None Review of Systems Review of Systems: At least ten systems reviewed and negative except as noted in the HPI. Physical Exam Physical Exam: Please see Dr. Terrell's addendum for physical exam. Results & Data Results & Data ([facility]) Vital Signs (Past 12 Hours) Vital Signs Temp Pulse Pulse Resp BP BP Pulse Ox 07/20/22 16:53 93 H 16 139/77 100 07/20/22 15:52 36.2 C L 117 H 18 166/81 H 98 O2 Del Method 07/20/22 16:53 Room Air 07/20/22 15:52 Room Air Laboratory Results Short CBC 07/20/22 Range/Units 16:12 WBC 5.09 (4.8-10.8) K/ul Hgb 5.3 L* (12.0-16.0) g/dl Hct 17.8 L* (34.1-44.9) % Plt Count 379 (130-400) K/uL BMP 07/20/22 16:12 Sodium 141 Potassium 3.9 Chloride 112 H Carbon Dioxide 22 BUN 29 H Creatinine 1.11 Glucose 89 Calcium 7.7 L Liver Function 07/20/22 Range/Units 16:12 Total Bilirubin 0.2 (0.2-1.0) mg/dl AST 21 (13-39) U/L ALT 25 (7-52) U/L Alkaline Phosphatase 74 (34-104) U/L Albumin 3.1 L (3.4-5.0) gm/dl Code Status & VTE Plan VTE Prophylaxis Plan VTE Prophylaxis will be ordered: Yes Supervising Physician Co-Signing Physician Notes Patient seen and examined independently. Agree with above assessment/plan by Kayce Thurston PA-C Patient with above-mentioned past medical history presents to the ED with symptomatic anemia. Recent admission with similar issue requiring 3 units of packed RBC transfusion. She had also undergone colonoscopy and endoscopy which were not able to find source of bleeding. Patient reports increasing shortness of breath, generalized weakness and dizziness consistent with symptomatic anemia. On physical examination Constitutional: WD/WN, vitals as above, NAD, sitting up in bed, pleasant, conversing easily Respiratory: normal respiratory effort, lungs clear to auscultation, no wheeze, rales, rhonchi. Normal insp/exp effort, no accessory muscle use Cardiovascular: RRR, no murmur, no edema Vessels: no JVD or carotid bruit Chest: normal inspection of chest Abdomen: Scar yadira present from previous surgery; nontender. Musculoskeletal: no cyanosis or clubbing, extremities motor strength 5/5 Skin: no rashes, warm and dry normal turgor. 1 + edema Neurologic: PERRL, EOMI, accommodation nl, no face palsy, no dysarthria CN's II- XI intact bilaterally and moves all extremities Psychiatric: A+Ox3, euthymic affect Lymphatic: no cervical or axillary lymphadenopathy : deferred Assessment/plan: Symptomatic Anemia: will transfuse 2 units of packed RBC, PPI twice daily, N.p.o. from midnight, Consult GI, Follow H&H. Type 2 DM- SSI inpatient CKD III- at baseline HTN- holding amlodipine; BP normotensive. (1) CKD (chronic kidney disease), stage III Chronic kidney disease stage 3 subtype: stage 3b (GFR 30-44) Qualified Code(s): N18.32 - Chronic kidney disease, stage 3b
[2022-07-20 18:03] LABS: INR 0.9 (0.9-1.1); Partial Thromboplastin Ratio 0.7
[2022-07-20 18:11] LABS: Partial Thromboplastin Time < 20.0 Seconds (21.0-31.0)
[2022-07-20] MEDS ORDERED: ONDANSETRON INJ 2 MG/ML 2 ML VIAL IV PRN (19:16)
[2022-07-20] MEDS ORDERED: POLYETHYLENE (MIRALAX) 17 GM PACK PO PRN (19:16)
[2022-07-20] MEDS ORDERED: ACETAMINOPHEN 325 MG TAB PO PRN (19:16)
[2022-07-20] MEDS ORDERED: CARBOHYDRATES FOR HYPOGLYCEMIA PO PRN (19:57)
[2022-07-20] MEDS ORDERED: GLUCOSE 40% GEL 15 GM TUBE PO PRN (19:57)
[2022-07-20] MEDS ORDERED: DEXTROSE 50% 50 ML SYRINGE IV PRN (19:57)
[2022-07-20] MEDS ORDERED: GLUCAGON FOR INJ 1 MG VIAL SQ PRN (19:57)
[2022-07-20] MEDS ORDERED: GLUCOSE 10 TAB/TUBE PO PRN (19:57)
[2022-07-20] MEDS ORDERED: INSULIN ASPART PER UNIT SC SCH (21:00)
[2022-07-20] MEDS: traZODone HCL 50 MG TAB PO SCH (23:42)
[2022-07-20] MEDS: PANTOprazole 40 MG in SYRINGE 0 ML IV SCH (23:42)
[2022-07-20] MEDS: traMADol HCL 50 MG TABLET PO PRN (23:51)
[2022-07-21 00:57] LABS: Hematocrit (blood only) 21.9 % (34.1-44.9)
[2022-07-21] MEDS ORDERED: Nursing to Pharmacy Communication SCH (03:00)
[2022-07-21 06:09] LABS: Hematocrit (blood only) 23.9 % (34.1-44.9); Hemoglobin 7.7 g/dl (12.0-16.0); Mean Corpuscular Hemoglobin 27.8 pg (25.0-34.0); Mean Corpuscular Hgb Conc 32.2 g/dL (32.0-36.0); Mean Corpuscular Volume 86.3 fL (80.0-100.0); Mean Platelet Volume 9.8 fL (9.4-12.3); Platelet Count 338 K/uL (130-400); RDW Coefficient of Variation 13.9 % (11.5-14.5); RDW Standard Deviation 43.4 fL (36.4-46.3); Red Blood Count 2.77 M/uL (3.93-5.22); White Blood Count 4.52 K/ul (4.8-10.8)
[2022-07-21] MEDS: INSULIN ASPART PER UNIT SC SCH ×3 (06:21→18:01)
[2022-07-21] MEDS ORDERED: LEVOTHYROXINE SODIUM 25 MCG TABLET PO SCH (06:30)
[2022-07-21 06:43] LABS: BUN Creatinine Ratio 18.2 (10-20); Calcium 7.6 mg/dl (8.5-10.1); Creatinine Clr Calc Pharmacy 40.7 ml/min; Est GFR (African American) 56.5 ml/min; Est GFR (Non-African American) 48.7 ml/min; Potassium 3.8 mmol/L (3.5-5.1)
--- NOTE | 2022-07-21 09:39 | Electrocardiogram Report ---
Test Reason : Blood Pressure : / mmHG Vent. Rate : 083 BPM Atrial Rate : 083 BPM P-R Int : 146 ms QRS Dur : 080 ms QT Int : 358 ms P-R-T Axes : 050 -17 026 degrees QTc Int : 420 ms Normal sinus rhythm Low voltage QRS Abnormal ECG Confirmed by Gopal Webster ([id number]) on 07/21/2022 9:39:23 AM Referred By: Saritha Bishop Confirmed By:Suresh Webster
[2022-07-21] MEDS: PANTOprazole 40 MG in SYRINGE 0 ML IV SCH ×2 (10:03→20:20)
[2022-07-21 10:50] LABS: Ferritin 6.2 ng/ml (8-388)
[2022-07-21 10:58] LABS: Vitamin B12 186 pg/ml (180-914)
--- NOTE | 2022-07-21 12:29 | Gastrointestinal Consultation ---
Date of Consultation July 21, 2022 Assessment & Plan (1) Symptomatic anemia: Plan Pt is a 76 yo female who is admitted with symptomatic anemia. Last endoscopic evaluation was about 2 weeks ago wo source of GI bleeding identified. She was having black tarry stools up to about 5 days ago - Continue Protonix 40mg IV BID - Monitor blood ct and transfuse prn - CL diet today, NPO after midnight - Repeat EGD and colonoscopy 07/22 - OP VCE Supervising Physician Co-Signing Physician Notes Attg add: 76 yo female with complex med history most notable for completion gastrectomy recent hosp for anemia, dark stool with neg bi directional scopes now admit with recurrent anemia, hgb from 8--> mid 5's and dark stool Iron deficiency, normocytosis, B12 markedly low with normal folate. DDX = GI blood loss - anastamotic ulcer or Small bowel bleed/AVM. Plan Scopes, parenteral daily B12. History of Present Illness Reason for Consultation: Anemia Requesting Physician: Dr. Justin Stauffer Attending Physician: Dr. Yuki Horton History of Present Illness Pt is a 76 yo female w PMHx of breast ca s/p chemo/surgery and bone marrow transplantation in 1993, h/o PUD s/p Billroth 2 and had post op gastroparesis & failed treatment then had gastrectomy in 2010, HTN, CKD III, GERD, CLEMENTINA, depression, hypothyroidism, spinal stenosis, RLS who presented yesterday w light headedness and weakness. Workup showed anemia w Hgb of 5. She was 3U PRBC transfusion w appropriate response on blood ct. She was admitted in this hospital about 2 weeks ago. At that time was having black tarry stools. After DC'd home she was still having black stools up till about 5 days ago, then stools are brown in color. She denies any abd pain, n/v. Denies any anticoagulants, or NSAIDs, ASA. She is on oral iron supplements at home, and in the past had also received IV iron infusions per direction of Dr. Gustafson (Heme/Onc). Allergies Allergy/AdvReac Type Severity Reaction Status Date / Time Sulfa (Sulfonamide Allergy Intermediate HIVES Verified 07/20/22 17:12 Antibiotics) metoclopramide AdvReac Intermediate depression Verified 07/20/22 17:12 Home Medications Medication Instructions Recorded Confirmed Type fluticasone propionate 50 2 spray intranasal QAM 10/15/18 07/20/22 History mcg/actuation nasal spray,suspension levothyroxine 50 mcg tablet 25 mcg PO 5XWK 10/15/18 07/20/22 History levothyroxine 50 mcg tablet 50 mcg PO 2XWK 10/15/18 07/20/22 History trazodone 50 mg tablet 50 mg PO HS 10/15/18 07/20/22 History ropinirole 4 mg tablet,extended 4 mg PO HS 06/17/20 07/20/22 History release 24 hr Wheelchair (Manual) #1 ea 01/01/21 07/20/22 Rx multivitamin 1 tab PO QAM 02/11/22 07/20/22 History cyclosporine 0.05 % eye drops in a 1 drp ophthalmic (eye) Q12H 07/09/22 07/20/22 History dropperette (Restasis) ferrous sulfate 15 mg iron (75 10 ml PO DAILY 07/09/22 07/20/22 History mg)/mL oral syringe (ORAL USE) food supplemt, lactose-reduced 1 ea PO DAILY 07/09/22 07/20/22 History (Ensure oral liquid) magnesium malate, chelate 1,000 mg PO DAILY 07/09/22 07/20/22 History lcqymcvc-xoy-chrikw 5 mg-zeaxanth 1 cap PO DAILY 07/09/22 07/20/22 History 1 mg-bilberry 7.5 mg-herbal capsule (Macular Health Formula) tramadol 50 mg tablet 50 mg PO Q6H PRN Severe Pain 07/09/22 07/20/22 History (Scale Score 7-10) amlodipine 5 mg tablet 2.5 mg PO QAM 30 days #15 tabs 07/12/22 07/20/22 Rx pantoprazole 40 mg tablet,delayed 40 mg PO QAM #30 tabs 07/12/22 07/20/22 Rx release amoxicillin 500 mg tablet 2,000 mg PO DIRECTED PRN PRIOR 07/20/22 07/20/22 History TO PROCEDURE omega-3 fatty acids 1,000 mg 1,000 mg PO DAILY 07/20/22 07/20/22 History capsule Patient History Medical History Anemia due to chronic kidney disease pt states has issues w/ anemia last blood transfusion was 10/2021 after back sx Arthritis CKD (chronic kidney disease), stage III Diabetes mellitus, type II History of COVID-12 JUNE 2020 (HOSPITALIZED AT [facility])- denies current issues History of depression History of TMJ disorder HTN (hypertension) Hx of gastric ulcer RESULTING IN GASTRECTOMY Hx of migraines Hx of sleep apnea RESOLVED 2007 HX: breast cancer 1993- lumpectomy and chemo Hypothyroidism Lyme disease Macular degeneration Polycystic ovarian disease RLS (restless legs syndrome) Spinal stenosis Surgical History H/O Billroth II operation H/O bone marrow transplant 1993 H/O oophorectomy H/O sinus surgery History of ankle surgery LEFT (12/28/20) History of appendectomy History of cataract surgery RT/LEFT History of colonoscopy History of esophagogastroduodenoscopy (EGD) History of tonsillectomy and adenoidectomy History of total right hip replacement Hx of lumpectomy LEFT S/P spinal surgery 09/2021 lumbar- [facility] S/P subtotal gastrectomy D/T GASTRIC ULCERS Family History Father Atrial fibrillation Other No family history of adverse response to anesthesia Social History Smoking Status: Never smoker Second Hand Exposure: No; Do You Dip or Chew Tobacco: No; Tobacco Cessation Education Requested by Patient: No Hx Alcohol Use: No Hx Substance Use: No Preferred Language: Yakut Communication Ability: Effective Law Enforcement Officer Required: No Beliefs That Will Affect Care: None marital status: / marital status details: within last 8-9 mo Current Living Situation: Alone Other Information That Helps Us Care for You: No Feels Safe at Home: Yes Safety Concerns: Feels Safe At This Time Assistive Devices: None Review of Systems Review of Systems: All systems reviewed & are unremarkable except as noted in HPI & below Physical Exam Constitutional: WD/WN, vitals as above well groomed, cooperative and comfortable Eyes: PERRL, conjunctivae normal, anicteric sclerae ENMT: external ear and nose normal, oropharynx normal Respiratory: normal respiratory effort, lungs clear to auscultation Cardiovascular: RRR, no murmur, no edema Gastrointestinal (Abdomen): normal bowel sounds, soft, nontender, no hepatosplenomegaly Skin: no rashes, warm and dry no jaundice Psychiatric: A+Ox3, euthymic affect Lymphatic: no lymphedema Results & Data ([facility]) Vital Signs (Past 12 Hours) Vital Signs Temp Pulse Pulse Resp BP Pulse Ox O2 Del Method 07/21/22 11:53 36.7 C 70 18 127/72 97 Room Air 07/21/22 09:16 Room Air 07/21/22 06:02 69 07/21/22 08:03 36.8 C 76 18 126/68 95 Room Air 07/21/22 03:05 36.8 C 76 18 108/60 98 Room Air 07/21/22 00:50 Room Air
--- NOTE | 2022-07-21 12:59 | Hospitalist Progress Note ---
Date of Service July 21, 2022 Assessment & Plan (1) Symptomatic anemia: (2) Diabetes mellitus, type II: (3) HTN (hypertension): (4) Depression with anxiety: (5) Breast cancer: (6) CKD (chronic kidney disease), stage III: Plan per admitting service notes with addendum: This is a 76yo F with PMH of breast CA s/p chemo/surgery and bone marrow transplantation in 1993, h/o PUD s/p Billroth 2 and had post op gastroparesis & failed treatment then had gastrectomy in 2010, HTN, CKD III, GERD, CLEMENTINA, depression, hypothyroidism, spinal stenosis, RLS and other medical problems listed below who presents to the ED with lightheadedness and generalized weakness and found to have symptomatic anemia. Symptomatic anemia Concern for GI Bleed Recent admission for severe anemia requiring 3u prbc transfusion GI consulted and EGD on 07/[address] Trevino was unremarkable and colonoscopy on 07/12 did not show signs of active bleeding Per GI, suspect anemia may be related to bypass of duodenum leading to significant anemia. Discharged home on protonix Black stools have resolved but persistent dyspnea on exertion and lightheadedness, found to have hgb of 5 on outpatient labwork and directed to ED Type & crossed and ordered for 2u prbcs Repeat H&H at 2200 FOBT GI consult placed, NPO @ [place] Protonix IV BID 07/11 Hg stable at 7 after blood transfusion no melena/hematochezia GI consulted, awaiting recommendations DM II Recently self-discontinued metformin due to s/e of cramping A1c 7.2 in April 2022 Planning to control with diet SSI while in-patient Diabetic education BSG AC HS CKD III Cr 1.1 (at baseline) HTN Hold amlodipine as likely contributing to BLE edema Continue prazosin and monitor BP RLS (restless legs syndrome) Continue Mirapex HS Hypothyroidism Continue Levothyroxine History of breast cancer S/P surgery and chemo H/o bone marrow transplant DVT Ppx: SCDs for now Code status: FULL PCP: Dario Dispo: anticipate d/c home when medically stable Admission and Anticipated Discharge Date Admission Date: July 20, 2022 Subjective ff up for symptomatic anemia, possible GI bleed, etc seen resting in chair, comfortable states she feels better than yesterday no chest pain, dyspnea, palpitations, dizziness ambulated in the halls with no problems had brown stools this morning no abdominal pain, nausea/vomiting no other symptoms Review of Systems Review of Systems: all noted and negative except for above Physical Exam Physical Exam: General- oriented x 3, not in distress, speaks in sentences with no effort or accessory muscle use Eyes- anicteric Neck- no JVD Lungs- clear BS bilaterally, no rales/wheezes Heart- normal rate, regular rhythm; no murmurs Abdomen- normal bowel sounds, nondistended, soft, no tenderness Extremities- no pretibial edema, no calf tenderness Neuro- alert, oriented x 3; no gross focal neurologic deficits Skin- warm & dry Results & Data Results & Data ([facility]) Vital Signs (Past 12 Hours) Vital Signs Temp Pulse Pulse Resp BP Pulse Ox O2 Del Method 07/21/22 11:53 36.7 C 70 18 127/72 97 Room Air 07/21/22 09:16 Room Air 07/21/22 06:02 69 07/21/22 08:03 36.8 C 76 18 126/68 95 Room Air 07/21/22 03:05 36.8 C 76 18 108/60 98 Room Air all noted and reviewed including below (1) CKD (chronic kidney disease), stage III Chronic kidney disease stage 3 subtype: stage 3b (GFR 30-44) Qualified Code(s): N18.32 - Chronic kidney disease, stage 3b
[2022-07-21] MEDS: traMADol HCL 50 MG TABLET PO PRN (15:21)
[2022-07-21] MEDS ORDERED: bisacodyL 5 MG TABEC PO ONE (17:00)
[2022-07-21] MEDS ORDERED: POLYETHYLENE (MIRALAX) 17 GM PACK PO ONE ×2 (17:00→21:00)
[2022-07-21 18:19] LABS: Hemoglobin 7.4 g/dl (12.0-16.0)
[2022-07-21] MEDS: traZODone HCL 50 MG TAB PO SCH (23:11)
[2022-07-22] MEDS: INSULIN ASPART PER UNIT SC SCH ×3 (00:06→12:56)
[2022-07-22] MEDS: traMADol HCL 50 MG TABLET PO PRN ×2 (03:48→12:17)
[2022-07-22] MEDS ORDERED: MoRPHine SULFATE 2 MG/ML CARP IV STA (03:56)
[2022-07-22] MEDS ORDERED: LEVOTHYROXINE SODIUM 50 MCG TABLET PO SCH (06:30)
[2022-07-22 06:52] LABS: Hematocrit (blood only) 23.7 % (34.1-44.9); Hemoglobin 7.8 g/dl (12.0-16.0); Mean Corpuscular Hemoglobin 27.7 pg (25.0-34.0); Mean Corpuscular Hgb Conc 32.9 g/dL (32.0-36.0); Mean Platelet Volume 10.4 fL (9.4-12.3); Platelet Count 341 K/uL (130-400); RDW Coefficient of Variation 14.2 % (11.5-14.5); RDW Standard Deviation 43.9 fL (36.4-46.3); Red Blood Count 2.82 M/uL (3.93-5.22); White Blood Count 4.05 K/ul (4.8-10.8)
[2022-07-22 07:06] LABS: BUN Creatinine Ratio 12.5 (10-20); Calcium 7.8 mg/dl (8.5-10.1); Creatinine Clr Calc Pharmacy 46.7 ml/min; Est GFR (African American) 60.4 ml/min; Est GFR (Non-African American) 52.1 ml/min; Potassium 3.7 mmol/L (3.5-5.1)
[2022-07-22] MEDS: PANTOprazole 40 MG in SYRINGE 0 ML IV SCH (08:15)
[2022-07-22] MEDS ORDERED: CYANOCOBALAMIN 1000 MCG/ML VIAL IM SCH (09:00)
--- NOTE | 2022-07-22 09:36 | Anesthesiology Consultation ---
Date of Service July 22, 2022 Assessment & Plan (1) Encounter for pre-operative examination: Chart Review Chart Review: Acceptable Risk for Surgery and Patient NOT seen in Pre Admission Testing Consults Requested none History Surgery Operation Date: 07/22/22 16:30 Proposed Procedures p Colonscopy EGD Dr Horton - Yuki Horton MD Height/Weight Height: 5 ft 6 in Weight: 71.7 kg Allergies Allergy/AdvReac Type Severity Reaction Status Date / Time Sulfa (Sulfonamide Allergy Intermediate HIVES Verified 07/22/22 09:33 Antibiotics) metoclopramide AdvReac Intermediate depression Verified 07/22/22 09:33 Medications Home Medications Medication Instructions Recorded Confirmed Last Taken fluticasone propionate 50 2 spray intranasal QAM 10/15/18 07/20/22 07/20/22 mcg/actuation nasal spray,suspension levothyroxine 50 mcg tablet 25 mcg PO 5XWK 10/15/18 07/20/22 07/20/22 levothyroxine 50 mcg tablet 50 mcg PO 2XWK 10/15/18 07/20/22 07/18/22 trazodone 50 mg tablet 50 mg PO HS 10/15/18 07/20/22 07/19/22 ropinirole 4 mg tablet,extended 4 mg PO HS 06/17/20 07/20/22 07/19/22 release 24 hr Wheelchair (Manual) #1 ea 01/01/21 07/20/22 Unknown multivitamin 1 tab PO QAM 02/11/22 07/20/22 07/20/22 cyclosporine 0.05 % eye drops in a 1 drp ophthalmic (eye) Q12H 07/09/22 07/20/22 07/20/22 08:00 dropperette (Restasis) ferrous sulfate 15 mg iron (75 10 ml PO DAILY 07/09/22 07/20/22 07/20/22 mg)/mL oral syringe (ORAL USE) food supplemt, lactose-reduced 1 ea PO DAILY 07/09/22 07/20/22 07/20/22 (Ensure oral liquid) magnesium malate, chelate 1,000 mg PO DAILY 07/09/22 07/20/22 07/20/22 kjpoqjia-vmn-bwiggz 5 mg-zeaxanth 1 cap PO DAILY 07/09/22 07/20/22 07/20/22 1 mg-bilberry 7.5 mg-herbal capsule ([employer] Formula) tramadol 50 mg tablet 50 mg PO Q6H PRN Severe Pain 07/09/22 07/20/22 Unknown (Scale Score 7-10) amlodipine 5 mg tablet 2.5 mg PO QAM 30 days #15 tabs 07/12/22 07/20/22 07/20/22 pantoprazole 40 mg tablet,delayed 40 mg PO QAM #30 tabs 07/12/22 07/20/22 07/20/22 release amoxicillin 500 mg tablet 2,000 mg PO DIRECTED PRN PRIOR 07/20/22 07/20/22 Unknown TO PROCEDURE omega-3 fatty acids 1,000 mg 1,000 mg PO DAILY 07/20/22 07/20/22 07/20/22 capsule Active Medications Generic Name Dose Route Start Last Admin Trade Name Freq PRN Reason Stop Dose Admin Cyanocobalamin 1,000 mcg 07/22/22 09:00 07/22/22 08:20 Cyanocobalamin 1000 Mcg/Ml Vial IM 08/21/22 08:59 1,000 mcg QAM MARTHA Administration Pantoprazole Sodium 40 mg/ 10 mls @ 5 mls/min 07/20/22 21:00 07/22/22 08:15 Syringe IV 08/19/22 20:59 5 mls/min BID MARTHA Administration Insulin Aspart 0 units 07/21/22 06:00 07/22/22 05:35 Insulin Aspart Per Unit SC 08/20/22 05:59 Not Given Q6 MARTHA Levothyroxine Sodium 50 mcg 07/22/22 06:30 07/22/22 05:35 Levothyroxine Sodium 50 Mcg Tablet PO 08/21/22 06:29 Not Given [id number] MARTHA Levothyroxine Sodium 25 mcg 07/21/22 06:30 07/21/22 06:20 Levothyroxine Sodium 25 Mcg Tablet PO 08/20/22 06:29 25 mcg [id number] MARTHA Administration Tramadol HCl 50 mg 07/20/22 19:32 07/21/22 15:21 Tramadol Hcl 50 Mg Tablet PO 08/19/22 19:31 50 mg Q6H PRN Administration Severe Pain (Scale Score 7-10) Trazodone HCl 50 mg 07/20/22 21:00 07/21/22 23:11 Trazodone Hcl 50 Mg Tab PO 08/19/22 20:59 50 mg HS MARTHA Administration NPO Date Last Intake of Fluids: 07/21/22 Time Last Intake of Fluids: 23:00 Date Last Intake of Solids: 07/20/22 Time Last Intake of Solids: 08:00 Past Medical History Medical History Anemia due to chronic kidney disease pt states has issues w/ anemia last blood transfusion was 10/2021 after back sx Arthritis CKD (chronic kidney disease), stage III Diabetes mellitus, type II History of COVID-12 JUNE 2020 (HOSPITALIZED AT [facility])- denies current issues History of depression History of TMJ disorder HTN (hypertension) Hx of gastric ulcer RESULTING IN GASTRECTOMY Hx of migraines Hx of sleep apnea RESOLVED 2007 HX: breast cancer 1993- lumpectomy and chemo Hypothyroidism Lyme disease Macular degeneration Polycystic ovarian disease RLS (restless legs syndrome) Spinal stenosis Exercise / Class Metabolic Activity II 4-5 Yardwork/Stairs/Walk up hill Past Family History Family History Father Atrial fibrillation Other No family history of adverse response to anesthesia Past Surgical History Surgical History H/O Billroth II operation H/O bone marrow transplant 1993 H/O oophorectomy H/O sinus surgery History of ankle surgery LEFT (12/28/20) History of appendectomy History of cataract surgery RT/LEFT History of colonoscopy History of esophagogastroduodenoscopy (EGD) History of tonsillectomy and adenoidectomy History of total right hip replacement Hx of lumpectomy LEFT S/P spinal surgery 09/2021 [facility] S/P subtotal gastrectomy D/T GASTRIC ULCERS Social History Smoking Status: Never smoker Do You Dip or Chew Tobacco: No Hx Alcohol Use: No Hx Substance Use: No substance use type: does not use Physical Exam Vital Signs Last Vital Signs Temp 36.6 C 07/22/22 09:28 Pulse 70 07/22/22 09:28 Resp 16 07/22/22 09:28 BP 144/76 H 07/22/22 09:28 Pulse Ox 100 07/22/22 09:28 O2 Del Method 07/22/22 09:28 Testing Laboratory Results 07/22/22 05:53 07/22/22 05:53 PT 10.0 Seconds (9.0-12.0) 07/20/22 17:28 INR 0.9 (0.9-1.1) 07/20/22 17:28 APTT < 20.0 Seconds (21.0-31.0) L 07/20/22 17:28 Blood Type A Positive 07/20/22 16:12 Antibody Screen NEGATIVE 07/20/22 16:12 07/22/22 07/22/22 07/21/22 07:48 05:28 23:56 POC Glucose 102 H 103 H 133 H
[2022-07-22] MEDS ORDERED: PROPOFOL IV EMULSION 10 MG/ML 20 ML VIAL IV ONE ×3 (10:14→11:00)
[2022-07-22] MEDS ORDERED: LIDOCAINE 2% MPF LOCAL 5 ML VIAL INFIL ONE (10:14)
--- NOTE | 2022-07-22 10:24 | History & Physical Bridge Note ---
Date of Service July 22, 2022 History & Physical Bridge Note I have examined the patient, reviewed the History & Physical and in the interval since the performance of the History & Physical I have noted the following changes of clinical significance: no changes noted
--- NOTE | 2022-07-22 12:04 | Anesthesiology Progress Note ---
Date of Service July 22, 2022 Anesthesia Post Procedure Vital Signs Vital Signs: Temp Pulse Pulse Resp BP Pulse Ox O2 Del Method 07/22/22 11:47 75 16 148/53 H 99 Room Air 07/22/22 11:32 81 16 127/59 L 98 Room Air 07/22/22 11:17 81 14 104/57 L 98 Room Air 07/22/22 06:00 76 07/22/22 09:28 36.6 C 70 16 144/76 H 100 Room Air 07/22/22 07:59 36.7 C 69 16 142/67 H 100 Room Air 07/22/22 03:48 36.4 C L 60 18 126/70 100 Room Air 07/22/22 00:00 36.7 C 70 16 124/74 95 Room Air 07/21/22 23:41 07/21/22 22:40 73 07/21/22 19:50 36.8 C 72 18 138/71 97 Room Air 07/21/22 16:33 37 C 60 18 126/74 96 Room Air 07/21/22 14:49 96 H O2 Del Method 07/22/22 11:47 07/22/22 11:32 07/22/22 11:17 07/22/22 06:00 07/22/22 09:28 07/22/22 07:59 07/22/22 03:48 07/22/22 00:00 07/21/22 23:41 Room Air 07/21/22 22:40 07/21/22 19:50 07/21/22 16:33 07/21/22 14:49 Pain Intensity Back: Pain Intensity: 6 Transfer of Care Handoff Completed per policy Notes Mental Status: alert / awake / arousable and participated in evaluation Patient Amnestic to Procedure: Yes Nausea / Vomiting: adequately controlled Pain: adequately controlled Airway Patency, RR, SpO2: stable & adequate BP & HR: stable & adequate Hydration State: stable & adequate Anesthetic Complications: no major complications apparent and Pt Satisfied with anesthetic care
[2022-07-22] MEDS ORDERED: IRON SUCROSE 300 MG in SODIUM CHLORIDE 0.9% 250 ML IV ONE (15:00)
--- NOTE | 2022-07-22 16:32 | Hospitalist Progress Note ---
Date of Service July 22, 2022 delayed entry date of service noted above Assessment & Plan (1) Symptomatic anemia: (2) Diabetes mellitus, type II: (3) HTN (hypertension): (4) Depression with anxiety: (5) Breast cancer: (6) CKD (chronic kidney disease), stage III: Plan per admitting service notes with addendum: This is a 76yo F with PMH of breast CA s/p chemo/surgery and bone marrow transplantation in 1993, h/o PUD s/p Billroth 2 and had post op gastroparesis & failed treatment then had gastrectomy in 2010, HTN, CKD III, GERD, CLEMENTINA, depression, hypothyroidism, spinal stenosis, RLS and other medical problems listed below who presents to the ED with lightheadedness and generalized weakness and found to have symptomatic anemia. Symptomatic anemia Concern for GI Bleed Recent admission for severe anemia requiring 3u prbc transfusion GI consulted and EGD on 07/[address] Trevino was unremarkable and colonoscopy on 07/12 did not show signs of active bleeding Per GI, suspect anemia may be related to bypass of duodenum leading to significant anemia. Discharged home on protonix Black stools have resolved but persistent dyspnea on exertion and lightheadedness, found to have hgb of 5 on outpatient labwork and directed to ED given Protonix IV Hg stable at 7 after 2 units pRBC transfusion no melena/hematochezia GI consulted: s/p EGDFindings: The esophagus was normal. There appeared to be a very small rim of gastric mucosa, and an unremarkable side to side gastro-jejunal anastamosis. There was a proximal surgical anastamosis with a redundant fold, likely related to prior stent placement. There jejuno-jejunal anastamosis was reached, although the BP limb was not deeply intubated. This anastamosis was unremarkable, without ulceration. No source of bleeding was found. Recommendation: - Discharge patient to home. s/p Colonoscopy Findings: The perianal and digital rectal examinations were normal. Multiple small and large-mouthed diverticula were found in the descending colon. Hemorrhoids on retroflexion. The exam was otherwise normal throughout the examined colon. The terminal ileum appeared normal. Recommendation: - Discharge patient to home. for outpatient video capsule endoscopy per GI repeat CBC as outpatient, monitor closely DM II Recently self-discontinued metformin due to s/e of cramping A1c 7.2 in April 2022 Planning to control with diet SSI while in-patient Diabetic education BSG AC HS CKD III Cr 1.1 (at baseline) HTN continue usual meds RLS (restless legs syndrome) Continue Mirapex HS Hypothyroidism Continue Levothyroxine History of breast cancer S/P surgery and chemo H/o bone marrow transplant DVT Ppx: SCDs for now Code status: FULL PCP: Dario Dispo: d/c home ff up with PCP in 1 week ff up with GI in 1-2 weeks Admission and Anticipated Discharge Date Admission Date: July 20, 2022 Subjective ff up for anemia, etc seen resting in bedside chair, comfortable s/p EGD and Colonoscopy no melena, hematochezia or any GI bleed recurrence no chest pain, dyspnea, palpitations, dizziness no other symptoms states she is ready and would like to be discharged Review of Systems Review of Systems: all noted and negative except for above Physical Exam Physical Exam: General- oriented x 3, not in distress, speaks in sentences with no effort or accessory muscle use Eyes- anicteric Neck- no JVD Lungs- clear BS bilaterally, no rales/wheezes Heart- normal rate, regular rhythm; no murmurs Abdomen- normal bowel sounds, nondistended, soft, nontender Extremities- no pretibial edema, no calf tenderness Neuro- alert, oriented x 3; no gross focal neurologic deficits Skin- warm & dry Results & Data Results & Data ([facility]) Vital Signs (Past 12 Hours) Vital Signs Temp Pulse Pulse Resp BP Pulse Ox O2 Del Method 07/22/22 16:20 36.5 C 67 16 129/69 99 Room Air 07/22/22 14:25 76 07/22/22 12:02 36.6 C 82 16 155/51 H 97 Room Air 07/22/22 11:47 75 16 148/53 H 99 Room Air 07/22/22 11:32 81 16 127/59 L 98 Room Air 07/22/22 11:17 81 14 104/57 L 98 Room Air 07/22/22 06:00 76 07/22/22 09:28 36.6 C 70 16 144/76 H 100 Room Air 07/22/22 07:59 36.7 C 69 16 142/67 H 100 Room Air all noted and reviewed including below (1) CKD (chronic kidney disease), stage III Chronic kidney disease stage 3 subtype: stage 3b (GFR 30-44) Qualified Code(s): N18.32 - Chronic kidney disease, stage 3b
--- NOTE | 2022-07-22 18:12 | Discharge Summary ---
Discharge Summary Date of Service July 22, 2022 delayed entry date of service noted above Notes For Next Care Provider for outpatient Video Capsule Endoscopy per GI Medication Changes From Visit none Admission HPI Per Admitting Provider This is a 76yo F with PMH of breast CA s/p chemo/surgery and bone marrow transplantation in 1993, h/o PUD s/p Billroth 2 and had post op gastroparesis & failed treatment then had gastrectomy in 2010, HTN, CKD III, GERD, CLEMENTINA, depression, hypothyroidism, spinal stenosis, RLS and other medical problems listed below who presents to the ED with lightheadedness and generalized weakness. Was admitted a few weeks ago for symptomatic anemia requiring 3u prbcs during admission. EGD by Dr. Trevino was unremarkable and colonoscopy did not show signs of active bleeding. Suspect anemia may be related to bypass of duodenum leading to significant anemia. Discharged home on protonix. States black stools have resolved 5 days ago and are now formed and brown. Has felt progressively weak since discharge and endorses dyspnea on exertion and lightheadedness. Continues to have poor appetite. Had outpatient labwork today and was directed to return to ED with low hemoglobin. Denies fever, chills, lightheadedness, nausea, vomiting, abdominal pain, dysuria, diarrhea or constipation. Admission Exam Per Admitting Provider Constitutional: WD/WN, vitals as above, NAD, sitting up in bed, pleasant, conversing easily Respiratory: normal respiratory effort, lungs clear to auscultation, no wheeze, rales, rhonchi. Normal insp/exp effort, no accessory muscle use Cardiovascular: RRR, no murmur, no edema Vessels: no JVD or carotid bruit Chest: normal inspection of chest Abdomen: Scar yadira present from previous surgery; nontender. Musculoskeletal: no cyanosis or clubbing, extremities motor strength 5/5 Skin: no rashes, warm and dry normal turgor. 1 + edema Neurologic: PERRL, EOMI, accommodation nl, no face palsy, no dysarthria CN's II- XI intact bilaterally and moves all extremities Psychiatric: A+Ox3, euthymic affect Lymphatic: no cervical or axillary lymphadenopathy : deferred Principal Dx & Hospital Course #1 = Principal Diagnosis (1) Symptomatic anemia: (2) Diabetes mellitus, type II: (3) HTN (hypertension): (4) Depression with anxiety: (5) Breast cancer: (6) CKD (chronic kidney disease), stage III: Plan (1) Symptomatic anemia: (2) Diabetes mellitus, type II: (3) HTN (hypertension): (4) Depression with anxiety: (5) Breast cancer: (6) CKD (chronic kidney disease), stage III: Plan per admitting service notes with addendum: This is a 76yo F with PMH of breast CA s/p chemo/surgery and bone marrow transplantation in 1993, h/o PUD s/p Billroth 2 and had post op gastroparesis & failed treatment then had gastrectomy in 2010, HTN, CKD III, GERD, CLEMENTINA, depression, hypothyroidism, spinal stenosis, RLS and other medical problems listed below who presents to the ED with lightheadedness and generalized weakness and found to have symptomatic anemia. Symptomatic anemia Concern for GI Bleed Recent admission for severe anemia requiring 3u prbc transfusion GI consulted and EGD on 07/[address] Trevino was unremarkable and colonoscopy on 07/12 did not show signs of active bleeding Per GI, suspect anemia may be related to bypass of duodenum leading to significant anemia. Discharged home on protonix Black stools have resolved but persistent dyspnea on exertion and lightheadedness, found to have hgb of 5 on outpatient labwork and directed to ED given Protonix IV Hg stable at ~7 after 2 units pRBC transfusion no melena/hematochezia GI consulted: s/p EGDFindings: The esophagus was normal. There appeared to be a very small rim of gastric mucosa, and an unremarkable side to side gastro-jejunal anastamosis. There was a proximal surgical anastamosis with a redundant fold, likely related to prior stent placement. There jejuno-jejunal anastamosis was reached, although the BP limb was not deeply intubated. This anastamosis was unremarkable, without ulceration. No source of bleeding was found. Recommendation: - Discharge patient to home. s/p Colonoscopy Findings: The perianal and digital rectal examinations were normal. Multiple small and large-mouthed diverticula were found in the descending colon. Hemorrhoids on retroflexion. The exam was otherwise normal throughout the examined colon. The terminal ileum appeared normal. Recommendation: - Discharge patient to home. for outpatient video capsule endoscopy per GI repeat CBC as outpatient, monitor closely DM II Recently self-discontinued metformin due to s/e of cramping A1c 7.2 in April 2022 Planning to control with diet SSI while in-patient Diabetic education BSG AC HS CKD III Cr 1.1 (at baseline) HTN continue usual meds RLS (restless legs syndrome) Continue Mirapex HS Hypothyroidism Continue Levothyroxine History of breast cancer S/P surgery and chemo H/o bone marrow transplant DVT Ppx: SCDs for now Code status: FULL PCP: Dario Dispo: d/c home ff up with PCP in 1 week ff up with GI in 1-2 weeks Discharge Exam General- oriented x 3, not in distress, speaks in sentences with no effort or accessory muscle use Eyes- anicteric Neck- no JVD Lungs- clear BS bilaterally, no rales/wheezes Heart- normal rate, regular rhythm; no murmurs Abdomen- normal bowel sounds, nondistended, soft, nontender Extremities- no pretibial edema, no calf tenderness Neuro- alert, oriented x 3; no gross focal neurologic deficits Skin- warm & dry Updated Medication List Medication Instructions Recorded Confirmed Type fluticasone propionate 50 2 spray intranasal QAM 10/15/18 07/20/22 History mcg/actuation nasal spray,suspension levothyroxine 50 mcg tablet 25 mcg PO 5XWK 10/15/18 07/20/22 History levothyroxine 50 mcg tablet 50 mcg PO 2XWK 10/15/18 07/20/22 History trazodone 50 mg tablet 50 mg PO HS 10/15/18 07/20/22 History ropinirole 4 mg tablet,extended 4 mg PO HS 06/17/20 07/20/22 History release 24 hr Wheelchair (Manual) #1 ea 01/01/21 07/20/22 Rx multivitamin 1 tab PO QAM 02/11/22 07/20/22 History cyclosporine 0.05 % eye drops in a 1 drp ophthalmic (eye) Q12H 07/09/22 07/20/22 History dropperette (Restasis) ferrous sulfate 15 mg iron (75 10 ml PO DAILY 07/09/22 07/20/22 History mg)/mL oral syringe (ORAL USE) food supplemt, lactose-reduced 1 ea PO DAILY 07/09/22 07/20/22 History (Ensure oral liquid) magnesium malate, chelate 1,000 mg PO DAILY 07/09/22 07/20/22 History ekrcoabv-nau-bdjkjg 5 mg-zeaxanth 1 cap PO DAILY 07/09/22 07/20/22 History 1 mg-bilberry 7.5 mg-herbal capsule ([facility] Formula) tramadol 50 mg tablet 50 mg PO Q6H PRN Severe Pain 07/09/22 07/20/22 History (Scale Score 7-10) pantoprazole 40 mg tablet,delayed 40 mg PO QAM #30 tabs 07/12/22 07/20/22 Rx release amoxicillin 500 mg tablet 2,000 mg PO DIRECTED PRN PRIOR 07/20/22 07/20/22 History TO PROCEDURE omega-3 fatty acids 1,000 mg 1,000 mg PO DAILY 07/20/22 07/20/22 History capsule Hospital Stay Data Consultations 07/20/22 17:08 ED Decision to Admit Stat 07/20/22 17:44 Consult Gastroenterology Routine Procedures Performed Operation Date: 07/22/22 16:30 Actual Procedures s EGD Biopsy Cytology(Not Applicable) - Yuki Horton MD p Colonoscopy - Yuki Horton MD Pending Results Patient Have Any Pending Studies at Discharge: Yes Discharge Instructions Given to Patient (Per Discharging Provider) PLEASE RESUME YOUR USUAL MEDICATION LIST. PLEASE CALL YOUR PRIMARY CARE PHYSICIAN OR RETURN TO THE ER IF WITH WORSENING OF SYMPTOMS, INCLUDING SHORTNESS OF BREATH, WEAKNESS, DIZZINESS, BLACK OR BLOODY STOOLS, ETC FOLLOW UP WITH PRIMARY CARE PHYSICIAN OUTLINED ABOVE. FOLLOW UP WITH QUALITY REP SCHEDULED. Total Time Total Time Spent Total Time Spent (In Minutes): > 30 minutes
--- NOTE | 2022-07-23 13:48 | GI REPORT ---
Patient Name: Gina Brock Procedure Date: 07/22/2022 10:28 AM Date of : 1945 Admit Type: Inpatient Age: 76 Gender: Female Attending MD: Yuki Horton MD, Procedure: Colonoscopy Providers: Yuki Horton MD Referring MD: Saritha Bishop Indications: Iron deficiency anemia Medicines: See the Anesthesia note for documentation of the administered medications Complications: No immediate complications. Estimated Blood Loss: Estimated blood loss: none. Procedure: Pre-Anesthesia Assessment: - ASA Grade Assessment: III - A patient with severe systemic disease. After I obtained informed consent, the scope was passed under direct vision. Throughout the procedure, the patient's blood pressure, pulse, and oxygen saturations were monitored continuously. The Colonoscope was introduced through the anus and advanced to 30 cm into the ileum. The colonoscopy was performed without difficulty. The patient tolerated the procedure well. The quality of the bowel preparation was good. Findings: The perianal and digital rectal examinations were normal. Multiple small and large-mouthed diverticula were found in the descending colon. Hemorrhoids on retroflexion. The exam was otherwise normal throughout the examined colon. The terminal ileum appeared normal. Recommendation: - Discharge patient to home. Yuki Horton M.D. Yuki Horton MD 07/23/2022 1:48:22 PM This report has been signed electronically. Note Initiated On: 07/22/2022 10:28 AM Number of Addenda: 0 I attest to the content of the Intraoperative Record and orders documented therein, exceptions below {[id number]}
--- NOTE | 2022-07-23 14:54 | GI REPORT ---
Patient Name: Gina Brock Procedure Date: 07/22/2022 10:28 AM Date of : 1945 Admit Type: Inpatient Age: 76 Gender: Female Attending MD: Yuki Horton MD, Procedure: Small bowel enteroscopy Providers: Yuki Horton MD Referring MD: Saritha Bishop Indications: Iron deficiency anemia Medicines: See the Anesthesia note for documentation of the administered medications Complications: No immediate complications. Estimated Blood Loss: Estimated blood loss: none. Procedure: Pre-Anesthesia Assessment: - ASA Grade Assessment: III - A patient with severe systemic disease. After obtaining informed consent, the endoscope was passed under direct vision. Throughout the procedure, the patient's blood pressure, pulse, and oxygen saturations were monitored continuously. The Colonoscope was introduced through the mouth, and advanced to the jejunum. After obtaining informed consent, the endoscope was passed under direct vision. Throughout the procedure, the patient's blood pressure, pulse, and oxygen saturations were monitored continuously.The small bowel enteroscopy was accomplished without difficulty. The patient tolerated the procedure well. Findings: The esophagus was normal. There appeared to be a very small rim of gastric mucosa, and an unremarkable side to side gastro-jejunal anastamosis. There was a proximal surgical anastamosis with a redundant fold, likely related to prior stent placement. There jejuno-jejunal anastamosis was reached, although the BP limb was not deeply intubated. This anastamosis was unremarkable, without ulceration. No source of bleeding was found. Recommendation: - Discharge patient to home. Serge Breaux MD 07/23/2022 2:54:18 PM This report has been signed electronically. Note Initiated On: 07/22/2022 10:28 AM Number of Addenda: 0 I attest to the content of the Intraoperative Record and orders documented therein, exceptions below {[id number]}
== END 2022-07-22 17:40 | disposition home or self-care (01) | DRG 394 ==
LOC: ED 15:20 → SUATTDRO 17:16 → EDINP 17:16 → 2S 22:32

== ENCOUNTER 2023-06-22 16:57 | Inpatient (IN) ==
--- NOTE | 2023-06-22 17:31 | ED Triage Note ---
Date of Service June 22, 2023 History of Present Illness This patient was briefly evaluated while in triage. An abbreviated physical exam was performed. This patient is a 77-year-old Female who presents to the ED for evaluation of GI bleeding. The patient was referred to the emergency department from the [facility] heme-onc office, with a hemoglobin yesterday of 7.2. Hemoglobin 1 month ago was 12.9. The patient has been having dark/tarry stools for the past few days. Patient was scheduled for surgery (placement of a spinal cord stimulator) on 07/04, and had preop labs performed. Patient does report a prior history of anemia and similar blood levels 1 year ago. She had endoscopy studies that were normal. Patient reports notable fatigue and shortness of breath. Patient has had prior iron and blood transfusions. Physical Exam CONSTITUTIONAL: Healthy and well nourished. Alert and oriented X 3. HEENT: Conjunctival pallor is noted. RESPIRATORY: Clear to auscultation bilaterally with no wheezing, crackles, rhonchi or stridor. CARDIOVASCULAR: Regular rate and rhythm with no murmurs, rubs or gallops. GASTROINTESTINAL: Bowel sounds present in all quadrants. Soft and nontender to palpation. MUSCULOSKELETAL: Full range of motion of all joints without discomfort. INTEGUMENTARY: Patient is slightly pale in appearance. HEMATOLOGIC: No ecchymosis or petechiae. PSYCHIATRIC: Positive affect. NEUROLOGIC: No focal neurologic deficits noted. Initial orders for labs and / or imaging were placed and patient was placed in the waiting area until a bed is available. Please see further documentation for the full ED course.
[2023-06-22] MEDS ORDERED: SODIUM CHLORIDE 0.9% 250 ML IV PRN (17:33)
[2023-06-22] MEDS ORDERED: PANTOprazole 80 MG in DEXTROSE 5% 100 ML IV ONE (18:53)
[2023-06-22] MEDS ORDERED: PANTOPRAZOLE BOLUS/DRIP IV STA (18:53)
[2023-06-22 19:21] LABS: Albumin Globulin Ratio 1.6 (0.9-2); Albumin Level 3.1 gm/dl (3.4-5.0); BUN Creatinine Ratio 29.8 (10-20); Bilirubin,Total 0.2 mg/dl (0.2-1.0); Creatinine Clr Calc Pharmacy 36.4 ml/min; Est GFR (Non-African American) 43.1 ml/min; Globulin 1.9 gm/dl (2.5-4.0); Magnesium 2.1 mg/dl (1.7-2.4); Potassium 4.3 mmol/L (3.5-5.1)
[2023-06-22 19:26] LABS: Troponin I High Sensitivity 9.2 pg/ml (0-14)
[2023-06-22] MEDS: PANTOprazole 40 MG in DEXTROSE 5% MINI-B 100 ML IV SCH (19:32)
[2023-06-22 19:42] LABS: Basophils # (auto) 0.03 K/uL (0.00-0.20); Basophils % (auto) 0.3 %; Eosinophils # (auto) 0.01 K/uL (0.00-0.50); Eosinophils % (auto) 0.1 %; Hematocrit (blood only) 21.6 % (37.0-47.0); Hemoglobin 6.8 g/dl (12.0-16.0); Hypochromasia Present; Immature Granulocytes # (auto) 0.07 K/uL (0.01-0.20); Immature Granulocytes % (auto) 0.7 %; Lymphocytes # (auto) 2.13 K/uL (1.20-3.40); Lymphocytes % (auto) 21.3 %; Mean Corpuscular Hemoglobin 29.7 pg (25.0-34.0); Mean Corpuscular Hgb Conc 31.5 g/dL (32.0-36.0); Mean Corpuscular Volume 94.3 fL (80.0-100.0); Mean Platelet Volume 9.6 fL (9.4-12.4); Monocytes # (auto) 0.48 K/uL (0.11-0.59); Monocytes % (auto) 4.8 %; Neutrophils % (auto) 72.8 %; Platelet Count 338 K/uL (130-400); Polychromasia 1+; RDW Coefficient of Variation 14.8 % (11.5-14.5); RDW Standard Deviation 50.5 fL (36.4-46.3); Red Blood Count 2.29 M/uL (4.20-5.40); White Blood Count 10.02 K/ul (4.8-10.8)
[2023-06-22 19:45] LABS: INR 0.9 (0.9-1.1); Prothrombin Time 9.9 Seconds (9.0-12.0)
--- NOTE | 2023-06-22 20:14 | History & Physical Report ---
Date of Service June 22, 2023 Assessment & Plan (1) Anemia: (2) Melena: (3) CKD (chronic kidney disease), stage III: (4) Diabetes mellitus, type II: (5) HTN (hypertension): (6) Hypothyroidism: (7) RLS (restless legs syndrome): (8) Myasthenia gravis: (9) HX: breast cancer: Plan: Assessment and Plan per Dr Banegas. See addendum. History of Present Illness Chief Complaint: melena Primary Care Provider: Saritha Bishop DO Patient is 77 y/o F with PMH anemia of chronic disease, iron deficiency anemia, h/o PUD s/p Billroth 2 and had post op gastroparesis & failed treatment then had gastrectomy in 2010, h/o Breast cancer s/p surgery and chemo, CKD III, CLEMENTINA, depression, hypothyroidism, spinal stenosis, RLS, GERD, myasthenia gravis, presented to ER with c/o melena x 2 weeks. Denies abdominal pain. States past couple of days with SOB with exertion and has been having fatigue. States couple weeks ago had constipation that was resolved with Miralax. Reports had temporary spinal stimulator for chronic back pain and that had helped and is scheduled on 07/04/[address] [place] for spinal stimulator placement. Had pre-op labs drawn yesterday and Hgb: 7.2 and was referred to ER. History melena and symptomatic anemia 06/2022. Had two EGDs and colonoscopies that were unremarkable. Also had video capsule study08/10/22 without small bowel bleeding seen. Reports last received IV iron in spring 2022. Was scheduled to have IV iron this week. Is on prednisone 20mg daily for current workup of myasthenia gravis. Denies fever/chills, diaphoresis, N/V/D, LEARY, dizziness, syncope, vision changes, neck pain, CP, palpitations, cough, sore throat, choking, otalgia, rhinorrhea, abdominal pain, extremity weakness, extremity edema, rashes, urinary symptoms. Outpatient records reviewed: hgb: 12.9 on 05/04/23 Allergies Allergy/AdvReac Type Severity Reaction Status Date / Time Sulfa (Sulfonamide Allergy Intermediate HIVES Verified 06/22/23 19:29 Antibiotics) metoclopramide AdvReac Intermediate depression Verified 06/22/23 19:29 Home Medications Medication Instructions Recorded Confirmed Type fluticasone propionate 50 2 spray intranasal QAM 10/15/18 06/22/23 History mcg/actuation nasal spray,suspension levothyroxine 50 mcg tablet 25 mcg PO 5XWK 10/15/18 06/22/23 History levothyroxine 50 mcg tablet 50 mcg PO 2XWK 10/15/18 06/22/23 History trazodone 50 mg tablet 50 mg PO HS 10/15/18 06/22/23 History ropinirole 4 mg tablet,extended 4 mg PO HS 06/17/20 06/22/23 History release 24 hr Wheelchair (Manual) #1 ea 01/01/21 06/22/23 Rx multivitamin 1 tab PO QAM 02/11/22 06/22/23 History magnesium malate, chelate 1,000 mg PO DAILY 07/09/22 06/22/23 History yzvpjike-zao-tyaxsx 5 mg-zeaxanth 1 cap PO DAILY 07/09/22 06/22/23 History 1 mg-bilberry 7.5 mg-herbal capsule ([employer] [facility] Formula) tramadol 50 mg tablet 50 mg PO Q6H PRN Severe Pain 07/09/22 06/22/23 History (Scale Score 7-10) pantoprazole 40 mg tablet,delayed 40 mg PO QAM #30 tabs 07/12/22 06/22/23 Rx release amoxicillin 500 mg tablet 2,000 mg PO DIRECTED PRN PRIOR 07/20/22 06/22/23 History TO PROCEDURE omega-3 fatty acids 1,000 mg 1,000 mg PO DAILY 07/20/22 06/22/23 History capsule lifitegrast 5 % eye drops in a 1 drp ophthalmic (eye) BID 06/14/23 06/22/23 History dropperette (Xiidra) prednisone 20 mg tablet 20 mg PO QAM 06/14/23 06/22/23 History amlodipine 5 mg tablet 5 mg PO QAM 06/22/23 06/22/23 History glipizide 2.5 mg tablet, extended 2.5 mg PO DAILY 06/22/23 06/22/23 History release 24 hr prazosin 1 mg capsule 1 mg PO Q OTHER DAY 06/22/23 06/22/23 History Past Med/Surg History Medical History HTN (hypertension) RLS (restless legs syndrome) Hypothyroidism Diabetes mellitus, type II glucose well controlled and stable GERD (gastroesophageal reflux disease) controlled Myasthenia gravis on prednisone daily follows with [facility] neuro History of COVID-12 JUNE 2020 (HOSPITALIZED AT [facility])- denies current issues April 2022- symptoms resolved Polycystic ovarian disease no issues currently Spinal stenosis Hx of gastric ulcer RESULTING IN GASTRECTOMY (2012) Lyme disease x2 hx- treated (no current issues) anaplasmosis - 2019- treated (no current issues) History of TMJ disorder stable - mostly pain when flared up - no locking Macular degeneration History of depression Hx of migraines HX: breast cancer 1993- lumpectomy and chemo Hx of sleep apnea Was on BiPAP in the past- no issues since 2007 (was re-tested) CKD (chronic kidney disease), stage III stable Anemia due to chronic kidney disease pt states has issues w/ anemia Jun 2022- admitted to [facility] (black tarry stools)- was transfused Chronic sinusitis stable Surgical History S/P spinal surgery 09/2021 lumbar- [facility] History of ankle surgery LEFT (12/28/20) History of esophagogastroduodenoscopy (EGD) History of colonoscopy Hx of lumpectomy LEFT H/O bone marrow transplant 1993 History of tonsillectomy and adenoidectomy History of total right hip replacement History of cataract surgery RT/LEFT H/O oophorectomy History of appendectomy H/O sinus surgery History of partial mastectomy of left breast LEFT S/P subtotal gastrectomy D/T GASTRIC ULCERS H/O Billroth II operation Family History Father Atrial fibrillation Other No family history of adverse response to anesthesia Social History Smoking Status: Never smoker Second Hand Exposure: No; Do You Dip or Chew Tobacco: No; Hx Alcohol Use: No Hx Substance Use: No Preferred Language: Belarusian Communication Ability: Effective Converting Technician Required: No Beliefs That Will Affect Care: None marital status: / marital status details: within last 8-9 mo Current Living Situation: Alone Feels Safe at Home: Yes Assistive Devices: Glasses Review of Systems Review of Systems: All systems reviewed & are unremarkable except as noted in HPI & below Physical Exam Physical Exam: General: no acute distress, WDWN Head: normocephalic, atraumatic Eyes: conjunctiva non-injected, anicteric ENT: normal inspection external ears, nose, mucous membranes moist Neck: supple, trachea midline Lungs: clear, no respiratory distress, no wheezing/rhonchi/rales CV: RRR, no murmur, no pretibial edema Abd: normal BS, soft, non-tender Ext: no cyanosis, no calf tenderness Neuro: A&O x 3, no focal deficits noted, normal affect Skin: +pale, warm, dry Results & Data Results & Data Vital Signs (Past 12 Hours) Vital Signs Temp Pulse Pulse Resp BP BP Pulse Ox 06/22/23 19:56 37.0 C 78 18 120/62 97 06/22/23 19:22 85 19 132/72 98 06/22/23 18:43 98 H 06/22/23 17:27 36.9 C 116 H 19 159/73 H 98 O2 Del Method 06/22/23 19:56 06/22/23 19:22 Room Air 06/22/23 18:43 06/22/23 17:27 Room Air Laboratory Results Short CBC 06/22/23 Range/Units 18:43 WBC 10.02 (4.8-10.8) K/ul Hgb 6.8 L* (12.0-16.0) g/dl Hct 21.6 L (37.0-47.0) % Plt Count 338 (130-400) K/uL BMP 06/22/23 18:43 Sodium 140 Potassium 4.3 Chloride 109 H Carbon Dioxide 25 BUN 36 H Creatinine 1.21 H Glucose 182 H Calcium 8.0 L Liver Function 06/22/23 Range/Units 18:43 Total Bilirubin 0.2 (0.2-1.0) mg/dl AST 18 (13-39) U/L ALT 28 (7-52) U/L Alkaline Phosphatase 54 (34-104) U/L Albumin 3.1 L (3.4-5.0) gm/dl Supervising Physician Co-Signing Physician Notes IM ATTENDING : Patient seen and examined. History obtained from patient and records. Preceding documentation by Ms. Latha Castañeda PA-C reviewed. FINAL ASSESSMENT AND PLAN as follows : Symptomatic anemia secondary to UGIB History PUD status post gastrectomy History H. 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 Of note, double vision symptoms have not improved with current steroid Rx as per patient account. PAF, patient currently NSR Hypertension, stable Hyperlipidemia on statin Rx CKD, creatinine at baseline hypothyroidism, euthyroid as of recent outpatient TSH DM2 on oral medications, reasonable control as of recent outpatient hemoglobin A1c of 7.4 this month breast cancer status post surgery, high-dose chemotherapy status post bone marrow transplantation Mood disorder, stable patient steroid Rx Failed back syndrome, permanent stimulator placement contemplated next month past tobacco abuse Medical telemetry Transfuse PRBC to maintain hemoglobin of at least 8 IV PPI GI consult re: UGIB Neurology consult Re: Follow-up eval for possible ocular MG, consider steroid taper given equivocal response to medication as per patient account and current admission for GI bleed Basal bolus insulin adjusted for n.p.o. status, ISS BG goal 1 10-1 40 DVT prophylaxis SCDs RE UGIB Full code Text document was generated using [employer] voice recognition software. It may contain grammatical or spelling errors. Kindly contact undersigned for clarification of any documentation item in question. (3) CKD (chronic kidney disease), stage III Chronic kidney disease stage 3 subtype: stage 3b (GFR 30-44) Qualified Code(s): N18.32 - Chronic kidney disease, stage 3b
[2023-06-22] MEDS ORDERED: LACTATED RINGER'S 1,000 ML IV ONE (20:30)
[2023-06-22] MEDS ORDERED: PROMETHAZINE HCL 6.25 MG in SODIUM CHLORIDE 0.9% 50 ML IV PRN (21:46)
--- NOTE | 2023-06-22 22:08 | Emergency Department Note ---
History of Present Illness General Chief complaint: Abnormal Labs/Diagnostic Testing Stated complaint: INTERNAL BLEEDING, BLOOD COUNT LOW Time Seen by Provider: 06/22/23 18:30 History of Present Illness Provider Complaint: + melena Onset (ago): 2 week(s) Pain Consistency: + constant Relieved By: + none Exacerbated By: + bowel movement Context: + history of GI bleed; no rectal trauma, no alcohol abuse, no known esophageal varices or no anticoagulant use Associated symptoms: no abdominal pain, no nausea, no vomiting, no epistaxis, no fever, no chills or no headaches Home Medications Medication Instructions Recorded Confirmed Type fluticasone propionate 50 2 spray intranasal QAM 10/15/18 06/22/23 History mcg/actuation nasal spray,suspension levothyroxine 50 mcg tablet 25 mcg PO 5XWK 10/15/18 06/22/23 History levothyroxine 50 mcg tablet 50 mcg PO 2XWK 10/15/18 06/22/23 History trazodone 50 mg tablet 50 mg PO HS 10/15/18 06/22/23 History ropinirole 4 mg tablet,extended 4 mg PO HS 06/17/20 06/22/23 History release 24 hr Wheelchair (Manual) #1 ea 01/01/21 06/22/23 Rx multivitamin 1 tab PO QAM 02/11/22 06/22/23 History magnesium malate, chelate 1,000 mg PO DAILY 07/09/22 06/22/23 History [id number] 5 mg-zeaxanth 1 cap PO DAILY 07/09/22 06/22/23 History 1 mg-bilberry 7.5 mg-herbal capsule ([employer] Formula) tramadol 50 mg tablet 50 mg PO Q6H PRN Severe Pain 07/09/22 06/22/23 History (Scale Score 7-10) pantoprazole 40 mg tablet,delayed 40 mg PO QAM #30 tabs 07/12/22 06/22/23 Rx release amoxicillin 500 mg tablet 2,000 mg PO DIRECTED PRN PRIOR 07/20/22 06/22/23 History TO PROCEDURE omega-3 fatty acids 1,000 mg 1,000 mg PO DAILY 07/20/22 06/22/23 History capsule lifitegrast 5 % eye drops in a 1 drp ophthalmic (eye) BID 06/14/23 06/22/23 History dropperette (Xiidra) prednisone 20 mg tablet 20 mg PO QAM 06/14/23 06/22/23 History amlodipine 5 mg tablet 5 mg PO QAM 06/22/23 06/22/23 History glipizide 2.5 mg tablet, extended 2.5 mg PO DAILY 06/22/23 06/22/23 History release 24 hr prazosin 1 mg capsule 1 mg PO Q OTHER DAY 06/22/23 06/22/23 History Allergies Allergy/AdvReac Type Severity Reaction Status Date / Time Sulfa (Sulfonamide Allergy Intermediate HIVES Verified 06/22/23 19:29 Antibiotics) metoclopramide AdvReac Intermediate depression Verified 06/22/23 19:29 Past Med/Surg History Medical History HTN (hypertension) RLS (restless legs syndrome) Hypothyroidism Diabetes mellitus, type II glucose well controlled and stable GERD (gastroesophageal reflux disease) controlled Myasthenia gravis on prednisone daily follows with [facility] neuro History of COVID-12 JUNE 2020 (HOSPITALIZED AT [facility])- denies current issues April 2022- symptoms resolved Polycystic ovarian disease no issues currently Spinal stenosis Hx of gastric ulcer RESULTING IN GASTRECTOMY (2012) Lyme disease x2 hx- treated (no current issues) anaplasmosis - 2019- treated (no current issues) History of TMJ disorder stable - mostly pain when flared up - no locking Macular degeneration History of depression Hx of migraines HX: breast cancer 1993- lumpectomy and chemo Hx of sleep apnea Was on BiPAP in the past- no issues since 2007 (was re-tested) CKD (chronic kidney disease), stage III stable Anemia due to chronic kidney disease pt states has issues w/ anemia Jun 2022- admitted to [facility] (black tarry stools)- was transfused Chronic sinusitis stable Surgical History S/P spinal surgery 09/2021 lumbar- [facility] History of ankle surgery LEFT (12/28/20) History of esophagogastroduodenoscopy (EGD) History of colonoscopy Hx of lumpectomy LEFT H/O bone marrow transplant 1993 History of tonsillectomy and adenoidectomy History of total right hip replacement History of cataract surgery RT/LEFT H/O oophorectomy History of appendectomy H/O sinus surgery History of partial mastectomy of left breast LEFT S/P subtotal gastrectomy D/T GASTRIC ULCERS H/O Billroth II operation Family History Father Atrial fibrillation Other No family history of adverse response to anesthesia Social History Smoking Status: Never smoker Second Hand Exposure: No; Do You Dip or Chew Tobacco: No; Hx Alcohol Use: No Hx Substance Use: No Preferred Language: Panamanian Communication Ability: Effective Instrumentation Chemist Required: No Beliefs That Will Affect Care: None marital status: / marital status details: within last 8-9 mo Current Living Situation: Alone Feels Safe at Home: Yes Assistive Devices: Glasses Physical Exam 2 Vital Signs: Vital Signs - 24 hr 06/22/23 17:27 06/22/23 18:43 06/22/23 19:22 Temperature 36.9 C Temperature Source Temporal Artery Sc an Pulse Rate 116 H 98 H Pulse Rate [Left A pical] 85 Respiratory Rate 19 19 Respiratory Effort / Characteristics Non-Labored Sponta neous Non-Labored Sponta neous Respiratory Depth Normal Normal Respiratory Patter n Regular Regular Blood Pressure 159/73 H Blood Pressure [Ri ght Arm] 132/72 Blood Pressure Christiana n 101 Blood Pressure Christiana n [Right Arm] 92 Blood Pressure Pos ition Pulse Oximetry 98 98 Oxygen Delivery Me thod Room Air Room Air Sepsis Recent Feve r Within 48 Hours No Sepsis New/Unexpla ined Change in Men nacho Status N/A Sepsis Action Take n by Nursing No Action Required 06/22/23 19:56 06/22/23 20:16 06/22/23 20:31 Temperature 37.0 C 37.1 C 36.9 C Temperature Source Oral Oral Oral Pulse Rate 78 78 71 Pulse Rate [Left A pical] Respiratory Rate 18 12 15 Respiratory Effort / Characteristics Respiratory Depth Respiratory Patter n Blood Pressure 120/62 110/65 119/67 Blood Pressure [Ri ght Arm] Blood Pressure Christiana n 81 80 84 Blood Pressure Christiana n [Right Arm] Blood Pressure Pos ition Lying Lying Pulse Oximetry 97 96 98 Oxygen Delivery Me thod Sepsis Recent Feve r Within 48 Hours Sepsis New/Unexpla ined Change in Men nacho Status Sepsis Action Take n by Nursing 06/22/23 21:01 06/22/23 21:53 Temperature 36.9 C 36.8 C Temperature Source Oral Oral Pulse Rate 71 72 Pulse Rate [Left A pical] Respiratory Rate 18 18 Respiratory Effort / Characteristics Respiratory Depth Respiratory Patter n Blood Pressure 116/68 116/67 Blood Pressure [Ri ght Arm] Blood Pressure Christiana n 84 83 Blood Pressure Christiana n [Right Arm] Blood Pressure Pos ition Pulse Oximetry 99 97 Oxygen Delivery Me thod Sepsis Recent Feve r Within 48 Hours Sepsis New/Unexpla ined Change in Men nacho Status Sepsis Action Take n by Nursing Physical Exam: Physical Exam GENERAL: She is oriented to person, place, and time. She appears well-developed and well-nourished. She does not appear distressed. HENT: Exam performed. -Head: Normocephalic and atraumatic. -Right Ear: External ear normal. No mastoid erythema -Left Ear: External ear normal. No mastoid erythema -Mouth/Throat: The oropharynx is clear and moist. No trismus in the jaw. No dental abscesses or uvula swelling. No oropharyngeal exudate or tonsillar abscesses. EYES: Conjunctivae and EOM are normal.Right eye exhibits no discharge. Left eye exhibits no discharge. No scleral icterus. NECK: Normal range of motion. Neck supple. No JVD present. No tracheal deviation and normal range of motion present. CV: Normal rate, regular rhythm, normal heart sounds and intact distal pulses. There is no peripheral edema. Palpable radial pulses bue. PULM/CHEST: Effort normal and breath sounds normal. No respiratory distress. No stridor. She has no wheezes. She has no rales. -Chest Wall: She exhibits no tenderness. ABD: The abdomen is soft. Bowel sounds are normal. She has no distension. No mass is present. There is no tenderness. There is no rebound, no guarding, no Stevenson's sign and no tenderness at McBurney's point. Rovsig negative Rectal: Rectal exam performed with female nursing deputy controller Renetta at bedside patient is hemocult positive. MUSC/SKEL: Normal range of motion. There is no peripheral edema, tenderness or deformity. NEURO: Motor and sensation grossly intact. SKIN: Skin is warm and dry. She is not diaphoretic. PSYCH: She has a normal mood and affect. Behavior is normal. Judgment and thought content normal. Course Course 1829: The patient was evaluated in room C4. A complete history and physical exam was performed Cardiac monitoring: An order was placed for continuous cardiac monitoring. The monitor shows a rate of 70 with sinus rhythm interpreted by me 194: Vital signs stable. Patient's hemoglobin is 6.8 down from 7.2 yesterday otherwise labs are within normal limits. Patient started on Protonix bolus and drip and will be transfused packed red blood cells in the emergency department. [facility]. Administered Medications Pantoprazole Sodium 40 mg/ (Dextrose) 100 mls @ 20 mls/hr IV Q5H MARTHA Stop: 07/22/23 19:14 Last Admin: 06/22/23 19:32 Dose: 8 mg/hr, 20 mls/hr Documented By: AISLINN Discontinued Medications Pantoprazole Sodium 80 mg/ (Dextrose) 120 mls @ 400 mls/hr IV NOW ONE Stop: 06/22/23 19:10 Last Infusion: 06/22/23 19:34 Dose: Infused Documented By: Admin: 06/22/23 19:15 Dose: 400 mls/hr Documented By: AISLINN Pantoprazole Sodium (Pantoprazole Bolus/Drip) 1 each IV NOW STA Stop: 06/22/23 18:54 Last Admin: 06/22/23 19:34 Dose: Not Given Documented By: AISLINN Medical Decision Making Laboratory Data Attestation: I reviewed the patient's lab results. 06/22/23 18:43 06/22/23 18:43 Lab Results 06/22/23 Range/Units 18:43 WBC 10.02 (4.8-10.8) K/ul RBC 2.29 L (4.20-5.40) M/uL Hgb 6.8 L* (12.0-16.0) g/dl Hct 21.6 L (37.0-47.0) % MCV 94.3 (80.0-100.0) fL MCH 29.7 (25.0-34.0) pg MCHC 31.5 L (32.0-36.0) g/dL RDW Std Deviation 50.5 H (36.4-46.3) fL RDW Coeff of Tatiana 14.8 H (11.5-14.5) % Plt Count 338 (130-400) K/uL MPV 9.6 (9.4-12.4) fL Immature Gran % (Auto) 0.7 % Neut % (Auto) 72.8 % Lymph % (Auto) 21.3 % Hunt % (Auto) 4.8 % Eos % (Auto) 0.1 % Baso % (Auto) 0.3 % Neut # (Auto) 7.30 H (1.40-6.50) K/uL Lymph # (Auto) 2.13 (1.20-3.40) K/uL Hunt # (Auto) 0.48 (0.11-0.59) K/uL Eos # (Auto) 0.01 (0.00-0.50) K/uL Baso # (Auto) 0.03 (0.00-0.20) K/uL Immature Gran # (Auto) 0.07 (0.01-0.20) K/uL Polychromasia 1+ Hypochromasia Present PT 9.9 (9.0-12.0) Seconds INR 0.9 (0.9-1.1) Sodium 140 (136-145) mmol/L Potassium 4.3 (3.5-5.1) mmol/L Chloride 109 H (98-107) mmol/L Carbon Dioxide 25 (21-32) mmol/L Anion Gap 6 (3-11) BUN 36 H (6-23) mg/dl Creatinine 1.21 H (0.6-1.2) mg/dl Est Cr Clr Drug Dosing 36.4 ml/min Est GFR ( Amer) 50.0 ml/min Est GFR (Non-Af Amer) 43.1 ml/min BUN/Creatinine Ratio 29.8 H (10-20) Glucose 182 H (70-99(Fasting)) mg/dl Calcium 8.0 L (8.6-10.3) mg/dl Magnesium 2.1 (1.7-2.4) mg/dl Total Bilirubin 0.2 (0.2-1.0) mg/dl AST 18 (13-39) U/L ALT 28 (7-52) U/L Alkaline Phosphatase 54 (34-104) U/L Troponin I High Sens 9.2 (0-14) pg/ml Total Protein 5.0 L (6.0-8.3) gm/dl Albumin 3.1 L (3.4-5.0) gm/dl Globulin 1.9 L (2.5-4.0) gm/dl Albumin/Globulin Ratio 1.6 (0.9-2) Blood Type A Positive Antibody Screen NEGATIVE Crossmatch See Detail ECG Data Attestation: I personally reviewed and interpreted this ECG as follows: Rate (beats per minute): 89 Rhythm: normal sinus Findings: no ST depression, no ST elevation or no prolonged QT Additional Comments: QRS 76. Baseline wander and artifact. [facility] Narrative 183: The patient was evaluated in room C4. A complete history and physical exam was performed Cardiac monitoring: An order was placed for continuous cardiac monitoring. The monitor shows a rate of 70 with sinus rhythm interpreted by me 1944: Vital signs stable. Patient's hemoglobin is 6.8 down from 7.2 yesterday otherwise labs are within normal limits. Patient started on Protonix bolus and drip and will be transfused packed red blood cells in the emergency department. [facility]. Impression & Plan Acute GI bleeding Critical Care Time Critical Care Time: Yes Total Critical Care Time: 60 I have personally spent greater than 60 minutes of critical care time in the direct management of this patient. This includes bedside care, interpretation of diagnostic studies, and testing, discussion with consultants, patient, and family members, and other required patient management activities. This 60 minutes is in excess of all separately billable procedures. Discharge Plan Visit Data Chief Complaint: Abnormal Labs/Diagnostic Testing Stated Complaint: INTERNAL BLEEDING, BLOOD COUNT LOW ED Provider: Sinan Peacock Discharge Problem: Acute GI bleeding Patient Disposition: Admitted As Inpatient Forms Stand Alone Forms: My [facility] Prescriptions Prescriptions: No Action (DME) Wheelchair (Manual) Device See Rx Instructions .MEDSUPPLY Qty: 1 0RF Rx Instructions: As directed trazodone 50 mg tablet 50 mg PO HS levothyroxine 50 mcg tablet 50 mcg PO 2XWK Patient Comments: Patient states she was just in here because she was scheduled for surgery and someone went over her medications, everything is correct and nothing has changed. Rx Instructions: Take on Sun, Thur levothyroxine 50 mcg tablet 25 mcg PO 5XWK Rx Instructions: Take on Mon, Tue, Wed, Fri, Sat fluticasone propionate 50 mcg/actuation spray,suspension 2 spray intranasal QAM ropinirole 4 mg tablet extended release 24 hr 4 mg PO HS magnesium malate, chelate 125 mg magnesium Capsule 1,000 mg PO DAILY Rx Instructions: Magnesium Malate 100mg tab tramadol 50 mg tablet 50 mg PO Q6H PRN (Reason: Severe Pain (Scale Score 7-10)) Macular Health Formula 5-1-7.5 mg Capsule 1 cap PO DAILY pantoprazole 40 mg Tablet,Delayed Release (Dr/Ec) 40 mg PO QAM Qty: 30 0RF prednisone 20 mg Tablet 20 mg PO QAM Xiidra 5 % Dropperette 1 drp OPHTHALMIC (EYE) BID Rx Instructions: administer approximately 12 hours apart amlodipine 5 mg tablet 5 mg PO QAM glipizide 2.5 mg tablet extended release 24hr 2.5 mg PO DAILY prazosin 1 mg capsule 1 mg PO Q OTHER DAY multivitamin Tablet 1 tab PO QAM omega-3 fatty acids 1,000 mg Capsule 1,000 mg PO DAILY amoxicillin 500 mg tablet 2,000 mg PO DIRECTED PRN (Reason: PRIOR TO PROCEDURE) Rx Instructions: 4 tabs 1 hour prior to procedure Referrals Referrals: Saritha Bishop DO [Primary Care Provider] -
[2023-06-22] MEDS: traMADol HCL 50 MG TABLET PO PRN (22:30)
[2023-06-22] MEDS: LORazepam 0.5 MG TAB PO PRN (22:31)
[2023-06-22 22:37] LABS: Appearance Urine Clear (Clear); Bacteria Urine Automated Negative (Negative); Bilirubin Urine Negative (Negative); Blood Urine Negative (Negative); Cast Urine Automated 0 /lpf (0-5); Color Urine Yellow; Epithelial Cell Urine Auto 0-5 /lpf (0-5); Glucose Urine UA Negative (Negative); Ketones Urine Negative (Negative); Leukocyte Esterase Urine Trace (Negative); Nitrite Urine Negative (Negative); Protein Urine Negative (Negative); RBC Urine Automated 0-4 /hpf (0-4); Specific Gravity Urine 1.016 (1.000-1.030); Urobilinogen Urine Negative (Negative); pH Urine 5.5 (4.5-7.5)
[2023-06-22] MEDS ORDERED: CARBOHYDRATES FOR HYPOGLYCEMIA PO PRN (22:55)
[2023-06-22] MEDS ORDERED: GLUCOSE 40% GEL 15 GM TUBE PO PRN (22:55)
[2023-06-22] MEDS ORDERED: GLUCAGON FOR INJ 1 MG VIAL SQ PRN (22:55)
[2023-06-22] MEDS ORDERED: GLUCOSE 10 TAB/TUBE PO PRN (22:55)
[2023-06-22] MEDS ORDERED: DEXTROSE 50% 50 ML SYRINGE IV PRN (22:55)
[2023-06-22] MEDS ORDERED: ARTIFICIAL TEARS OP PRN (23:04)
[2023-06-22] MEDS: traZODone HCL 50 MG TAB PO SCH (23:40)
[2023-06-23] MEDS: INSULIN ASPART PER UNIT CHARGE SC SCH ×3 (00:10→13:26)
[2023-06-23] MEDS: PANTOprazole 40 MG in DEXTROSE 5% MINI-B 100 ML IV SCH ×3 (01:00→10:07)
[2023-06-23] MEDS: traZODone HCL 50 MG TAB PO SCH (01:03)
[2023-06-23 01:09] VITALS: TEMP 98.6
[2023-06-23 02:48] LABS: BUN Creatinine Ratio 26.1 (10-20); Calcium 7.6 mg/dl (8.6-10.3); Creatinine Clr Calc Pharmacy 39.7 ml/min; Est GFR (African American) 55.5 ml/min; Est GFR (Non-African American) 47.9 ml/min; Hematocrit (blood only) 24.9 % (37.0-47.0); Hemoglobin 8.2 g/dl (12.0-16.0); Potassium 3.8 mmol/L (3.5-5.1)
--- OUTSIDE RECORDS SUMMARY | 2023-06-23 04:58 | External Medical Summary | Summary of Care ---
Author Name Unknown Organization [facility] Address [address] [place] [address] Phone [phone] Care Team Providers Care Housekeeper Caregiver Name Role Phone Saritha Bishop DO Primary Care Provider Reason for Visit * Reason Onset Date Comments Test Results 06/21/2023 Encounter Details Date Type Department Care Team (Late st Contact Info) Description 06/21/2023 Telephone Family Practice [facility] [address] [facility] [place] [address] Saritha Bishop DO [address] [facility] [place] [id number] Test Results Allergies Active Allergy Reactions Criticality Noted Date Comments Metformin 07/29/2022 Muscle Cramping Metoclopramide Hcl 01/15/2008 Mental changes Sulfa Antibiotics 05/18/2001 hives, welts all over body documented as of this encounter (statuses as of 06/22/2023) Medications Medication Sig Dispensed Refills Start Date End Date Status EXCEDRIN EXTRA STRENGTH 250-250-65 MG PO TABS take 1-2 tablets by mouth as needed 0 12/14/2012 Active Nutritional Supplements (ENSURE) Take by mouth 2 times a day. 0 Active Multiple Vitamin (MULTI-DAY) TabletIndications:s enior vitamin Take 1 Tab by mouth daily. Indications: senior vitamin 0 Active Magnesium Malate 1250 (141.7 Mg) MG Oral Tablet Take 800 mg by mouth daily. 0 09/04/2020 Active [place]-3 1000 MG Oral Capsule Take by mouth. 0 Active Restasis 0.05 % Ophthalmic Emulsion 0 06/29/2021 Activ e Clobetasol Propionate 0.05 % External Ointment (Temovate)Indicatio ns:Lichen sclerosus of female genitalia Apply to vulva nightly x2 weeks, then 2x/week 30 g 6 12/09/2021 Active Fluticasone Propionate 50 MCG/ACT Nasal Suspension (Flonase)Indication s:Nasal sinus polyp ADMINISTER 2 SPRAYS INTO EACH NOSTRIL DAILY 48 g 1 01/08/2023 01/08/2024 Active Prazosin HCl 1 MG Oral Capsule (Minipress) TAKE ONE CAPSULE BY MOUTH EVERY DAY BEFORE BEDTIME 90 Capsule 3 12/23/2022 12/23/2023 Active Pantoprazole Sodium 40 MG Oral Tablet Delayed Release (Protonix) TAKE ONE TABLET BY MOUTH EVERY MORNING 90 Tablet 2 12/06/2022 12/06/2023 Active amLODIPine Besylate 5 MG Oral Tablet (Norvasc) TAKE ONE TABLET BY MOUTH EVERY MORNING 90 Tablet 3 11/09/2022 11/09/2023 Active miSOPROStol 200 MCG Oral Tablet (Cytotec) Take 1 Tablet by mouth in the morning and 1 Tablet at noon and 1 Tablet in the evening and 1 Tablet before bedtime. 90 Tablet 3 02/23/2023 Active Additional Information Patient not taking.Reported on 05/23/2023 Levothyroxine Sodium 50 MCG Oral Tablet (Levoxyl)Indication s:Hypothyroidism TAKE ONE HALF TABLET BY MOUTH DAILY. EXCEPT TAKE ONE TABLET ON THURSDAYS AND SUNDAYS 100 Tablet 1 03/03/2023 Active Pyridostigmine Lyons 60 MG Oral Tablet (Mestinon) 1/2 tab at bedtime x 5 days then increase to 1/2 tab twice daily x 5 days then 1/2 tab three times daily after 2 weeks on /2 tab Three times daily increase to 1 tab am 1/2 midday and 1/2 tab pm x 5 days then 1 tab am 1 tab midday 1/2 tab pm x 5 days then 1 tab three times daily 90 Tablet 2 04/07/2023 Active rOPINIRole HCl ER 4 MG Oral Tablet Extended Release 24 Hour (Requip XL) TAKE ONE TABLET BY MOUTH EVERY DAY 90 Tablet 3 05/09/2023 05/08/2024 Active predniSONE 20 MG Oral Tablet (Deltasone) Take 1 Tablet by mouth in the morning. 30 Tablet 2 05/16/2023 Active glipiZIDE ER 2.5 MG Oral Tablet Extended Release 24 Hour (glipiZIDE XL)Indications:Type 2 diabetes mellitus with diabetic mononeuropathy, without long-term current use of insulin (HCC) Take 1 Tablet by mouth in the morning 30 minutes before a meal. 90 Tablet 3 05/23/2023 Active traZODone HCl 50 MG Oral Tablet (Desyrel) TAKE ONE AND ONE-HALF TABLETS BY MOUTH AT BEDTIME 135 Tablet 3 05/26/2023 Active traMADol HCl 50 MG Oral Tablet (Ultram)Indications :Lumbar back pain with radiculopathy affecting left lower extremity TAKE ONE TABLET BY MOUTH EVERY EIGHT HOURS NEEDED FOR SEVERE PAIN 150 Tablet 0 06/15/2023 12/15/2023 Active documented as of this encounter (statuses as of 06/22/2023) Active Problems Problem Noted Date Diagnosed Date Hypertensive chronic kidney disease w stg 1-4/un sp chr kdny 06/07/2023 Atrial fibrillation 11/05/2022 Essential (primary) hypertension 08/03/2022 Hypothyroidism 08/03/2022 Hyperlipidemia 04/26/2022 Iron deficiency anemia due to chronic blood loss 06/17/2021 Spinal stenosis of lumbar re gion with neurogenic claudication 04/10/2021 Chronic kidney disease, stage 3b 12/02/2020 Overview: Per CKD protocol Gastro-esophageal reflux disease without esophag itis 10/06/2020 Anemia due to stage 3b chronic kidney disease Overview: Per CKD protocol Lyme disease 05/08/2020 Bone marrow transplant status 04/08/2020 Motor neuron disease 04/08/2020 Myasthenia due to diabetes 04/08/2020 Thrombocytosis 08/02/2019 Major depressive disorder, single episode, unspe cified 08/02/2019 Intestinal postoperative nonabsorption 0 Metabolic disorder, iron 08/02/2019 Hypothyroidism due to Parag's thyroiditis Myasthenia gravis 08/02/2019 Controlled substance agreement signed 11/23/2018 RLS (restless legs syndrome) 03/23/2018 Calcium nephrolithiasis 05/31/2017 Moderate episode of recurrent major depressive d isorder 12/21/2016 Anemia due to vitamin B12 deficiency 06/11/2015 Iron deficiency anemia 07/19/2014 Lichen sclerosus of female genitalia 02/04/2014 Depression with anxiety 01/01/2008 Personal history of malignant neoplasm of breast 10/04/2003 Overview: Bone Marrow Transplantation CHR MAXILLARY SINUSITIS documented as of this encounter (statuses as of 06/22/2023) Resolved Problems Problem Noted Date Diagnosed Date Resolved Date Stage 3 chronic kidney disease 08/03/2022 09/08/2022 Sleep apnea 04/08/2020 11/05/2022 Protein-calorie malnutrition 01/05/2019 10/12/2021 Kidney disease, chronic, sta ge III (GFR 30-59 ml/min) 02/24/2015 07/07/2018 Overview: Per CKD protocol #1 Type 2 diabetes mellitus wit h hemoglobin A1c goal of less than 7.0% 01/27/2015 06/03/2016 Overview: ICD-10 update of inactive term Abdominal tenderness, right upper quadrant 04/06/2010 09/03/2016 Other protein-calorie malnutrition 11/25/2009 09/03/2016 Altered mental status 11/13/20092016 Anemia in stage 3 chronic kidney disease 11/08/2009 06/05/2020 Follow-up examination, aly hobson other surgery 10/26/2009 09/05/2017 Acute gastrojejunal ulcer with perforation 10/26/2009 01/05/2019 Rectal prolapse 08/14/2008 09/03/2016 Incontinence of feces 04/05/20082016 Overview: ICD-10 update of inactive term Examination following surgery 03/24/2008 09/03/2016 Rectal prolapse 03/21/2008 09/03/2016 Closed fracture of second ce rvical vertebra without mention of spinal cord injury 09/15/2007 Gastroparesis 04/09/2003 09/03/2016 MALIGN NEOPL BREAST NOS 08/25 documented as of this encounter (statuses as of 06/22/2023) Immunizations Name Administration Dates Next Due COVID-19 mRNA, LNP-s, No Pre serve, 2-Dose Series (Zarpo) 05/18/2021,10/04/2020,09/06/2020 Pneumococcal Conjugate Vacc, 13 Valent (Prevnar) 11/19/2016 Pneumococcal Polysaccharide PPV23 (Pneumovax) 04/09/2019,10/25/2009 SEASONAL INFLUENZA, PF, 6 M & Above, IM , (FLULAVAL or FLUZONE) 05/09/2019,06/02/2018,04/18/2017 Season Influenza, Cell Culte r, 18+ Yrs, With Preserv (Flucelvax) 05/30/2013 Season Influenza, Quad, PF, Adjuvanted, 65+ Yrs, IM (FLUAD) 04/08/2020 Seasonal Influenza, Quadriva lent Hd (Fluzone Hd) 07/12/2022 Seasonal Influenza, Quadriva lent Hd, 65+ Yrs 05/18/2021 Seasonal Influenza, Quadriva lent, No Preserve, IM 05/24/2016 Seasonal Influenza, Split, I IV3, With Preserve, Inj 04/11/2015,04/06/2014,06/12/2012,09/2010,07/13/2010,04/23/2009,05/07/20 08 04/06/2015 Seasonal Influenza, Trivalen t, High Dose, No Preserve, IM 04/09/2019 TDAP (age 10 and older)(Boostrix) 05/09/2019,08/2018 TDAP (age 11 and older)(Adacel) 11/29/2008 Varicella Zoster Vaccine (Adult) 12/13/2014 Zoster Vaccine Recombinant (Shingrix) 07/30/2019 ,05/09/2019,04/09/2019 documented as of this encounter Social History Tobacco Use Types Packs/Day Years Used Date Smoking Tobacco: Former Cigarettes Q uit: 10/03/1974 Smokeless Tobacco: Never Alcohol Use Standard Drinks/Week Comments No 0 (1 standard drink = 0.6 oz pur e alcohol) PHQ-2 Answer Date Recorded PHQ Adult Total Score 5 09/27/2022 Hunger Vital Sign Answer Date Recorded Within the past 12 months, y ou worried that your food would run out before you got the money to buy more. Never true 09/28/19 23 Within the past 12 months, t he food you bought just didn't last and you didn't have money to get more. Never true 09/27/2022 Sex and Gender Information Value Date Recorded Sex Assigned at Female 10/24/2018 12:57 PM EDT Gender Identity Female 10/24/2018 12:57 PM EDT Sexual Orientation Straight 10/24/2018 12 :57 PM EDT Job Start Date Occupation Industry Not on file Not on file Not on file documented as of this encounter Miscellaneous Notes * Addendum Note - Barbara Carvalho MD - 06/22/2023 10:41 AM ESTAddended by: BARBARA CARVALHO on: 06/22/2023 10:41 AM Modules accepted: Orders * Telephone Encounter - Barbara Carvalho MD - 06/22/2023 10:[address] Gustafson is away, I am covering him. Blood workup done on 06/13/2023 at [facility]: -WBC 9300, H&H of 7.2/20.7, Platelet count of 981577, MCV of 96.7. -BUN/Creat: 40/1.1. Calcium 8.1 Recently when she showed Dr. Gustafson, she had a blood workup done on 05/04/2023: -WBC 5700, H&H of 12.9/41.8, Platelet count of 297, MCV of 95. -BUN/Creat: 19/1.3, normal LFT -Ferritin level --> 25, Serum iron 70, TIBC 318, iron saturation 22% -Vitamin B12 level was 438. Last dose of IV iron received on 09/23/2022 in the form of Ferric Derisomaltose (Monoferric) x1 dose.Before that was in June 2021 ( Ferric Derisomaltose (Monoferric) She had endoscopic evaluation earlier in June of 2022, no sites of GI blood loss noted. Within 1 month hemoglobin level dropped down from 12.9 --> 7.2 suggest blood loss Her Ferritin level was on the lower side earlier in 04/2023 and It has further dropped. I would like to check Ferritin, iron profile, B12, folic acid now. Would like to give her intravenous iron in the form Ferric Derisomaltose (Monoferric) x1 dose soon. She should see GI for the follow-up. Would like to repeat CBCD, Ferritin, iron profile about 2 weeks after the IV iron therapy. * Telephone Encounter - Saritha Bishop DO - 06/21/2023 3:[address] Gustafson: Pt sees you for iron deficiency anemia, she has received both transfusions and IV iron in the past,what do you ecommend at this time? Thank you Saritha * Telephone Encounter - Marylin Machuca LPN - 06/21/2023 3:26 PM EST Linda with [facility] called in regards to the patient's pre op labs coming back. She said that her Hemoglobin was 7.2 and her hematocrit was 23.7. The patient has an appt with Dr. Herring on 06/28/2023 for a pre op appt but the PA from [facility] wanted us to be aware of thelab results before then. documented in this encounter Plan of Treatment Upcoming Encounters Date Type Department Care Team (Late st Contact Info) Description 06/24/2023 11:20 AM EST Office Visit Neurology [facility] [address] [place] [address] Contreras Enriquez DO [address] [place] [address] 06/28/2023 6:20 PM EST [facility] [address] [place] [address] Karol Herring MD [address] [place] [address] [address] 08/09/2023 11:00 AM EST Telemedicine [facility], [facility] [address] [facility] [place] [address] Dimas Powers, DO [address] [facility] [place] [phone] 09/23/2023 11:20 AM EST Office Visit Nephrology, [address] [address] Alex Olivares MD [address] [place] [address] 09/30/2023 2:00 PM EST Nurse Only Ancillary [facility] [address] [place] [address] Kimmie, Nurse Annual Wellness [facility] [address] [facility] [place] [address] 11/14/2023 2:00 PM EDT Office Visit Hematology/Oncology [facility] [address] [place] [address] Amauri Gustafson MD [address] [facility] [place] [address] 11/28/2023 3:00 PM EDT Office Visit Family Practice [facility] [address] [place] [address] Saritha Bishop, [address] [facility] [place] [address] 04/19/2024 11:00 AM EDT Imaging Radiology [facility] [facility] [address] [place] [address] Scheduled Procedures Name Priority Associated Diagnoses Date/Ti me COLONOSCOPY FLEXIBLE PROXIMAL DIAGNOSTIC Recall Screen for colon cancer Health Maintenance Due Date Last Done Comments Hepatitis B (1 of 3 - Risk 3-dose series) 2005 COVID-19 Vaccine ( season) 2023 05/18/2021, 10/04/2020, 09/06/2020 Influenza Vaccine (FLU shot) (#1) 2023 07/12/2022, 05/18/2021, 04/08/2020, Additional history exists HbA1c 05/03/2023 11/01/2022, 0 09/2022, 04/26/2022, Additional history exists Diabetic Foot Exam 07/29/2023 07/29/2022, 10/12/2021 Depression Screening 09/28/2023 09/27/2022 CKD PHOS USE SMARTSET [id number] 11/02/2023 04, 10/14/2021, 03/04/2020, Additional history exists TSH 11/02/2023 11/01/2022, 08/2021, 10/20/2020, Additional history exists GFR 11/03/2023 05/04/2023, 02/23, 12/06/2022, Additional history exists Diabetic Eye Exam 11/29/2023 11/28/2022, , 12/10/2020, Additional history exists CKD HGB USE SMARTSET 89970 05/04/202405/04, 05/04/2023, 01/17/2023, Additional history exists Albumin/Creatinine Ratio 05/25/2024 023, 04/26/2022, 10/27/2020, Additional history exists DTaP,Tdap,and Td Vaccines (4 - Td or Tdap) 05/09/2029 05/09/2019, 10/24/2018, 11/29/2008 DXA Scan 05/12/2029 05/12/2022, 0701/2014, 12/10/2010 Pneumococcal Vaccine: 65+ Years Completed 04/09/2019, 11/19/2016, 10/25/2009 Zoster Vaccines Completed 07/30/2019, 04/24, 04/09/2019, Additional history exists GARDASIL-HPV IMMUNIZATION SERIES Aged Out No longer eligible based on patient's age to complete this topic MENINGOCOCCAL (MENACTRA/MENVEO) Aged Out No longer eligible based on patient's age to complete this topic documented as of this encounter Medical Devices Implanted Type Area Special Agent Group Insurance Device Identifier Shelf Expiration Date Model / Serial / Lot Lens Intraoc 16.0 - [id number] - [id number] Implanted:Qty: 1 on 11/30/2016 by Kt Molina MD at OR [facility] Left: Eye [employer]OM[employer] 04/23/2021 [id number] / [id number] / [id number] Lens Intraoc 16.0 - [id number] - [id number] Implanted:Qty: 1 on 12/16/2016 by Kt Molina MD at OR [facility] Right: Eye BAUSCH [employer] LOMB 04/23/2021 [id number] / [id number] / [id number] Vectris 1x8 Compact Trial Screening Implanted:Qty: 1 on 05/19/2023 by Dimas Powers DO at OR [facility] Right: Back [employer] : NEUROLOGIC PAIN 02/11/2027 [id number] / / [id number] documented as of this encounter Visit Diagnoses Diagnosis Other iron deficiency anemia- Primary documented in this encounter Advance Directives Documents on File Type Date Recorded Patient 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 Code Status History Code Status Date Activated Date Inactivated Comments Full Code 11/30/2016 12:21 PM 11/30/2016 6:39 PM This o rder reflects the patients wishes and were consensually agreed upon. Full Code 04/06/2010 3:37 PM 04/08/2010 9:59 PM Question Answer Comments Discussion of Advance Directives occurred with: Not Discussed Full Code 11/13/2009 4:16 PM 11/14/2009 7:17 PM This order reflects the patients wishes and were consensually agreed upon. Question Answer Comments Discussion of Advance Directives occurred with: Patient/Family Does the patient have a Living Will? No Does the patient have Health Care Power of Supply Requirements Officer? No Full Code 11/07/2009 9:32 PM 11/12/2009 9:58 PM This order reflects the patients wishes and were consensually agreed upon. Question Answer Comments Discussion of Advance Directives occurred with: Not Discussed Care Teams Housekeeper Caregiver Relationship Specialty Start Date End Date Saritha Bishop DO [address] [place] [address] PCP - General Family Medicine 05/30/11 documented as of this encounter
[2023-06-23] MEDS ORDERED: LEVOTHYROXINE SODIUM 50 MCG TABLET PO SCH (06:30)
--- OUTSIDE RECORDS SUMMARY | 2023-06-23 06:38 | External Medical Summary | Summary of Care ---
Author Name Unknown Organization [facility] Address [address] [place] [address] Phone [phone] Care Team Providers Care Supervisor Stitching Department Name Role Phone Saritha Bishop DO Primary Care Provider Reason for Visit * Reason Onset Date Comments Test Results 06/21/2023 Encounter Details Date Type Department Care Team (Late st Contact Info) Description 06/21/2023 Telephone Family Practice [facility] 200 [facility] [place] [address] Saritha Bishop DO 200 [facility] [place] [address] Test Results Allergies Active Allergy Reactions Criticality [...] mg by mouth daily. 0 09/04/2020 Active [place]-3 1000 MG Oral Capsule Take by mouth. 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 If she is having dark stool, and there is a concern for GIB, please refer to ER. " Called patient to review. She states that she knows she is bleeding, but was hesitant to go to ER because when this happened last year nothing was found. Advised her that ER is best option as they can arrange to get any needed procedures/ scans done on a urgent basis, can also more closely monitor h emoglobin and transfuse if needed. Patient agreeable, will go to [facility]. Called [facility] ER to make them aware patient is coming, spoke to Jocelynn Brasher. * Telephone Encounter - Kelsea Bai RN - 06/22/2023 1:51 PM EST [place] plan built and routed for signature. Waiting for auth. Called patient. She notes that she recently started having black tarry stools. She is having slightSOB but is still able to do her normal activities. She has noticed more fatigue- states that she went to bible study this morning and was exhausted/ had a difficult time afterwards because of the amount of activity. She states that she will go for the additional lab work this afternoon. She is agreeable to iron infusion. She states that she has been having terrible nerve pain- she has been seeing Dr Cuba with [facility]. Heplaced a temporary spinal cord stimulator and this made a significant difference in how she felt. She has a procedure 07/04/23 to have a permanent stimulator placed at [facility]. Advised her that we will follow up to let them know our plan and will get iron infusion scheduled for as soon as possible. She notes she has an appt in our building Tuesday to see Dr Enriquez- ideally would like to schedule around that to make it one trip. Patient states that she previously saw Dr Horton in GI. Had multiple procedures when this happened last year and a source of bleeding could not be found. Advised her that I will make Dr Horton aware of labs/ plan in case there is anything else he suggests. Called [facility] and was transferred to pre-admission testing. Left message asking that they return callto discuss labs/ plan of care. Dr Horton: FYI * Addendum Note - Barbara Carvalho MD - 06/22/2023 10:41 AM ESTAddended by: BARBARA CARVALHO on: 06/22/2023 10:41 AM Modules accepted: Orders * Telephone Encounter - Barbara Carvalho MD - 06/22/2023 10:[address] Gustafson is away, I am covering him. Blood workup done on 06/13/2023 at [facility]: -WBC 9300, H&H of 7.2/20.7, Platelet count of 770207, MCV of 96.7. -BUN/Creat: 40/1.1. Calcium 8.1 [...] you ecommend at this time? Thank you Melara * Telephone Encounter - Marylin Machuca LPN - 06/21/2023 3:26 PM EST Linda with [facility] called in regards to the patient's pre op labs coming back. She said that her Hemoglobin was 7.2 and her hematocrit was 23.7. The patient has an appt with Dr. Herring on 06/28/2023 for a pre op appt but the PA from [facility] wanted us to be aware of thelab results before then. documented in this encounter Plan of Treatment Upcoming Encounters Date Type Department Care Team (Late st Contact Info) Description 06/24/2023 11:20 AM EST Office Visit Neurology [place] Flann[place] [address] [place] [address] Contreras Enriquez DO [address] [place] [address] 06/28/2023 6:20 PM EST Office Visit Family [facility] [place] [address] [place], [place] [address] Karol Herring MD [address] [place], [place] [address] 08/09/2023 11:00 AM EST Telemedicine [facility]ventional [facility], [facility] [address] [facility] [place] [address] Dimas Powers, DO [address] [place] [address] 09/23/2023 11:20 AM EST Office Visit Nephrology, [address] [address] Alex Olivares MD [address] [place] [address] 09/30/2023 2:00 PM EST Nurse Only Ancillary [facility] [place] [address] [place], [place] [address] [place], Nurse Annual Wellness [facility] [address] [place] [address] 11/14/2023 2:00 PM EDT Office Visit Hematology/Oncology [facility] [place] [address] [place] [address] Amauri Gustafson MD [address] [place], [place] [address] 11/28/2023 3:00 PM EDT Office Visit [facility] [place] [address] [place], [place] [address] Saritha Bishop DO [address] [place] [address] 04/19/2024 11:00 AM EDT Imaging Radiology [facility] [address] [place] [address] Scheduled Procedures Name Priority Associated Diagnoses Date/Ti me COLONOSCOPY FLEXIBLE PROXIMAL DIAGNOSTIC Recall Screen for colon cancer Health Maintenance Due Date Last Done Comments Hepatitis B (1 of 3 - Risk 3-dose series) 2005 COVID-19 Vaccine ( season) 2023 05/18/2021, 10/04/2020, 09/06/2020 Influenza Vaccine (FLU shot) (#1) 2023 07/12/2022, 05/18/2021, 04/08/2020, Additional history exists HbA1c 05/03/2023 11/01/2022, 010 09/2022, 04/26/2022, Additional history exists Diabetic Foot Exam 07/29/2023 07/29/2022, 10/12/2021 Depression Screening 09/28/2023 09/27/2022 CKD PHOS USE SMARTSET 30995 11/02/2023 04/1 , 10/14/2021, 03/04/2020, Additional history exists TSH 11/02/2023 11/01/2022, 050 08/2021, 10/20/2020, Additional history exists GFR 11/03/2023 05/04/2023, 02/23, 12/06/2022, Additional history exists Diabetic Eye Exam 11/29/2023 11/28/2022, , 12/10/2020, Additional history exists CKD HGB USE SMARTSET 04345 05/04/202405/04, 05/04/2023, 01/17/2023, Additional history exists Albumin/Creatinine Ratio 05/25/2024 023, 04/26/2022, 10/27/2020, Additional history exists DTaP,Tdap,and Td Vaccines (4 - Td or Tdap) 05/09/2029 05/09/2019, 10/24/2018, 11/29/2008 DXA Scan 05/12/2029 05/12/2022, 07/0 01/2014, 12/10/2010 Pneumococcal Vaccine: 65+ Years Completed 04/09/2019, 11/19/2016, 10/25/2009 Zoster Vaccines Completed 07/30/2019, 04/24, 04/09/2019, Additional history exists GARDASIL-HPV IMMUNIZATION SERIES Aged Out No longer eligible based on patient's age to complete this topic MENINGOCOCCAL (MENACTRA/MENVEO) Aged Out No longer eligible based on patient's age to complete this topic documented as of this encounter Medical Devices Implanted Type Area Payment Processor Device Identifier Shelf Expiration Date Model / Serial / Lot Lens Intraoc 16.0 - [id number] - [id number] Implanted:Qty: 1 on 11/30/2016 by Kt Molina MD at OR [facility] Left: Eye BAUSCH & LOMB 04/23/2021 [id number] / [id number] / [id number] Lens Intraoc 16.0 - [id number] - [id number] Implanted:Qty: 1 on 12/16/2016 by Kt Molina MD at OR [facility] Right: Eye BAUSCH & LOMB 04/23/2021 [id number] / [id number] / [id number] Vectris 1x8 Compact Trial Screening Implanted:Qty: 1 on 05/19/2023 by Diams Powers DO at OR [facility] Right: Back [employer] : NEUROLOGIC PAIN 02/11/2027 [id number] / / [id number] documented as of this encounter Visit Diagnoses Diagnosis Other iron deficiency anemia- Primary documented in this encounter Advance Directives Documents on File Type Date Recorded 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 No Full Code 11/07/2009 9:32 PM 11/12/2009 9:58 PM This order reflects the patients wishes and were consensually agreed upon. Question Answer Comments Discussion of Advance Directives occurred with: Not Discussed Care Teams Supervisor Stitching Department Relationship Specialty Start Date End Date Saritha Bishop DO [address] [place] [address] PCP - General Family Medicine 05/30/11 documented as of this encounter
--- OUTSIDE RECORDS SUMMARY | 2023-06-23 06:39 | External Medical Summary | Summary of Care ---
Author Name Unknown Organization [facility] Address [address] [place] [address] Phone [phone] Care Team Providers Care Property Clerk Name Role Phone Saritha Bishop DO Primary Care Provider Reason for Visit * Reason Onset Date Comments Test Results 06/21/2023 Encounter Details Date Type Department Care Team (Late st Contact Info) Description 06/21/2023 Telephone Family Practice [facility] 200 [facility] [place] [address] Saritha Bishop DO 200 [facility] [place] [address] Test Results Allergies Active Allergy Reactions Criticality [...] mg by mouth daily. 0 09/04/2020 Active [place]-3 1000 MG Oral Capsule Take by mouth. [...] SUNDAYS 100 Tablet 1 03/03/2023 Active Pyridostigmine [place] 60 MG Oral Tablet (Mestinon) 1/2 tab [...] mRNA, LNP-s, No Pre serve, 2-Dose Series ([employer]) 05/18/2021,10/04/2020,09/06/2020 Pneumococcal Conjugate Vacc, 13 Valent (Prevnar) [...] Bai RN - 06/22/2023 1:51 PM EST [place] plan built and routed for signature. Waiting for auth. Called patient. She notes that she recently started having black tarry stools. She is having slightSOB but is still able to do her normal activities. She has noticed more fatigue- states that she went to [place] study this morning and was exhausted/ had [...] to have a permanent stimulator placed at [facility]. Advised her that we will follow up to let them know our plan and will get iron infusion scheduled for as soon as possible. Patient states that she previously saw Dr Horton in GI. Had multiple procedures when this happened last year and a source of bleeding could not be found. Advised her that I will make Dr Horton aware of labs/ plan in case there is anything else he suggests. Dr Horton: FYI * Addendum Note - Barbara Carvalho MD - 06/22/2023 10:41 AM ESTAddended by: BARBARA CARVALHO on: 06/22/2023 10:41 AM Modules accepted: Orders * Telephone Encounter - Barbara Carvalho MD - 06/22/2023 10:[address] Gustafson is away, I am covering him. Blood workup done on 06/13/2023 at [facility]: -WBC 9300, H&H of 7.2/20.7, Platelet count of 083822, MCV of 96.7. -BUN/Creat: 40/1.1. Calcium 8.1 [...] - 06/21/2023 3:26 PM EST Linda with [facility] called in regards to the patient's pre op labs coming back. She said that her Hemoglobin was 7.2 and her hematocrit was 23.7. The patient has an appt with Dr. Herring on 06/28/2023 for a pre op appt but the PA from [facility] wanted us to be aware of thelab results before then. documented in this encounter Plan of Treatment Upcoming Encounters Date Type Department Care Team (Late st Contact Info) Description 06/24/2023 11:20 AM EST Office Visit Neurology [facility] [address] [place] [address] Contreras Enriquez, DO 200 [facility] [place] [address] 06/28/2023 6:20 PM EST Office Visit Family Practice [facility] [address] [place] [address] Karol Herring MD 200 [facility] [place] [address] 08/09/2023 11:00 AM EST Telemedicine Interventional [facility] Center, [facility] 132 [facility] [place] [address] Dimas Powers, DO [address] [place] [address] 09/23/2023 11:20 AM EST Office Visit [address]phrology, [address] [address] Alex Olivares MD [address] [place] [phone] 09/30/2023 2:00 PM EST Nurse Only Ancillary [facility] [address] [place] [address] [place], Nurse Annual Wellness [facility] 200 [facility] [place] [address] 11/14/2023 2:00 PM EDT Office Visit Hematology/Oncology [facility] [address] [place] [address] Amauri Gustafson MD 200 [facility] [place] [address] 11/28/2023 3:00 PM EDT Office Visit Family Practice [facility] [address] [place] [address] Saritha Bishop, 200 [facility] [place] [address] 04/19/2024 11:00 AM EDT Imaging Radiology [address] 132 [facility] [place] [address] Scheduled Procedures Name Priority Associated Diagnoses Date/Ti me COLONOSCOPY FLEXIBLE PROXIMAL DIAGNOSTIC Recall Screen for colon cancer Health Maintenance Due Date Last Done Comments Hepatitis B (1 of 3 - Risk 3-dose series) 2005 COVID-19 Vaccine ( season) 2023 05/18/2021, 10/04/2020, 09/06/2020 Influenza Vaccine (FLU shot) (#1) 2023 07/12/2022, 05/18/2021, 04/08/2020, Additional history exists HbA1c 05/03/2023 11/01/2022, 09/2022, 04/26/2022, Additional history exists Diabetic Foot Exam 07/29/2023 07/29/2022, 10/12/2021 Depression Screening 09/28/2023 09/27/2022 CKD PHOS USE SMARTSET 64818 11/02/2023 04/1 , 10/14/2021, 03/04/2020, Additional history exists TSH 11/02/2023 11/01/2022, 2022, 10/20/2020, Additional history exists GFR 11/03/2023 05/04/2023, 02/23, 12/06/2022, Additional history exists Diabetic Eye Exam 11/29/2023 11/28/2022, , 12/10/2020, Additional history exists CKD HGB USE SMARTSET 82865 05/04/202405/04, 05/04/2023, 01/17/2023, Additional history exists Albumin/Creatinine Ratio 05/25/2024 023, 04/26/2022, 10/27/2020, Additional history exists DTaP,Tdap,and Td Vaccines (4 - Td or Tdap) 05/09/2029 05/09/2019, 10/24/2018, 11/29/2008 DXA Scan 05/12/2029 05/12/2022, 01/2014, 12/10/2010 Pneumococcal Vaccine: 65+ Years Completed 04/09/2019, 11/19/2016, 10/25/2009 Zoster Vaccines Completed 07/30/2019, 04/24, 04/09/2019, Additional history exists GARDASIL-HPV IMMUNIZATION SERIES Aged Out No longer eligible based on patient's age to complete this topic MENINGOCOCCAL (MENACTRA/MENVEO) Aged Out No longer eligible based on patient's age to complete this topic documented as of this encounter Medical Devices Implanted Type Area Instrument Fitter Device Identifier Shelf Expiration Date Model / Serial / Lot Lens Intraoc 16.0 - [id number] - [id number] Implanted:Qty: 1 on 11/30/2016 by Kt Molina MD at OR [facility] Left: Eye BAUSCH & LOMB 04/23/2021 [id number] / [id number] / [id number] Lens Intraoc 16.0 - [id number] - [id number] Implanted:Qty: 1 on 12/16/2016 by Kt Molina MD at OR [facility] Right: Eye BAUSCH & LOMB 04/23/2021 [id number] / [id number] / [id number] Vectris 1x8 Compact Trial Screening Implanted:Qty: 1 on 05/19/2023 by Dimas Powers DO at OR [facility] Right: Back [employer] : NEUROLOGIC PAIN 02/11/2027 [id number] / / [id number] documented as of this encounter Visit Diagnoses Diagnosis Other iron deficiency anemia- Primary documented in this encounter Advance Directives Documents on File Type Date Recorded 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 No Full Code 11/07/2009 9:32 PM 11/12/2009 9:58 PM This order reflects the patients wishes and were consensually agreed upon. Question Answer Comments Discussion of Advance Directives occurred with: Not Discussed Care Teams Property Clerk Relationship Specialty Start Date End Date Saritha Bishop DO [address] [address] PCP - General Family Medicine 05/30/11 documented as of this encounter
--- OUTSIDE RECORDS SUMMARY | 2023-06-23 06:39 | External Medical Summary | Summary of Care ---
Author Name Unknown Organization [facility] Address [address] [place] [address] Phone [phone] Care Team Providers Care Delivery Director Name Role Phone Saritha Bishop DO Primary Care Provider Reason for Visit * Reason Onset Date Comments Test Results 06/21/2023 Encounter Details Date Type Department Care Team (Late st Contact Info) Description 06/21/2023 Telephone Family Practice [facility] 200 [facility] [place] [address] Saritha Bishop DO 200 [facility] [place] [address] Test Results Allergies Active Allergy Reactions Criticality [...] mg by mouth daily. 0 09/04/2020 Active [place]-3 1000 MG Oral Capsule Take by mouth. [...] SUNDAYS 100 Tablet 1 03/03/2023 Active Pyridostigmine [place] 60 MG Oral Tablet (Mestinon) 1/2 tab [...] mRNA, LNP-s, No Pre serve, 2-Dose Series ([employer]) 05/18/2021,10/04/2020,09/06/2020 Pneumococcal Conjugate Vacc, 13 Valent (Prevnar) [...] Bai RN - 06/22/2023 1:51 PM EST [place] plan built and routed for signature. Waiting [...] to have a permanent stimulator placed at [facility]. Advised her that we will follow up [...] there is anything else he suggests. Called [facility] and was transferred to pre-admission testing. Left message asking that they return callto discuss labs/ plan of care. Dr Horton: JOSE M * Addendum Note - Barbara Carvalho MD - 06/22/2023 10:41 AM ESTAddended by: BARBARA CARVALHO on: 06/22/2023 10:41 AM Modules accepted: Orders * Telephone Encounter - Barbara Car[place]ho MD - 06/22/2023 10:[address] Gustafson is away, I am covering him. Blood workup done on 06/13/2023 at [facility]: -WBC 9300, H&H of 7.2/20.7, Platelet count of 257796, MCV of 96.7. -BUN/Creat: 40/1.1. Calcium 8.1 [...] - 06/21/2023 3:26 PM EST Linda with [facility] called in regards to the patient's pre op labs coming back. She said that her Hemoglobin was 7.2 and her hematocrit was 23.7. The patient has an appt with Dr. Herring on 06/28/2023 for a pre op appt but the PA from [facility] wanted us to be aware of thelab results before then. documented in this encounter Plan of Treatment Upcoming Encounters Date Type Department Care Team (Late st Contact Info) Description 06/24/2023 11:20 AM EST Office Visit Neurology [facility] [address] [place] [address] Contreras Enriquez, DO [address] [place] [address] 06/28/2023 6:20 PM EST Office Visit Family Practice [facility] [address] [place] [address] Karol Herring MD 200 [facility] [place] [address] 08/09/2023 11:00 AM EST Telemedicine Interventional [facility] Center, [facility] [address] [place] [address] Dimas Powers, DO [address] [phone] 09/23/2023 11:20 AM EST Office Visit Nephrology, [address], [place] [address] Alex Olivares MD 400 [facility] [place] [address] 09/30/2023 2:00 PM EST Nurse Only Ancillary [facility] [address] [place] [address] [place], Nurse Annual Wellness [facility] 200 [facility] [place] [address] 11/14/2023 2:00 PM EDT Office Visit Hematology/Oncology [facility] 200 [place] [address] Amauri Gustafson MD 200 [facility] [place] [address] 11/28/2023 3:00 PM EDT Office Visit Family Practice [facility] 200 [facility] [place] [address] Saritha Bishop, 200 [facility] [place] [address] 04/19/2024 11:00 AM EDT Imaging Radiology [address] [facility] [address] Scheduled Procedures Name Priority Associated Diagnoses Date/Ti [...] Screening 09/28/2023 09/27/2022 CKD PHOS USE SMARTSET 14079 11/02/2023 04, 10/14/2021, 03/04/2020, Additional history exists TSH 11/02/2023 11/01/2022, 0508/2021, 10/20/2020, Additional history exists GFR 11/03/2023 05/04/2023, 02/23, 12/06/2022, Additional history exists Diabetic Eye Exam 11/29/2023 11/28/2022, , 12/10/2020, Additional history exists CKD HGB USE SMARTSET 53425 05/04/202405/04, 05/04/2023, 01/17/2023, Additional history exists Albumin/Creatinine [...] this encounter Medical Devices Implanted Type Area Appraisal Analyst Device Identifier Shelf Expiration Date Model / Serial / Lot Lens Intraoc 16.0 - [id number] - [id number] Implanted:Qty: 1 on 11/30/2016 by Kt Molina MD at OR [facility] Left: Eye BAUSCH & LOMB 04/23/2021 [id number] / [id number] / [id number] Lens Intraoc 16.0 - [id number] - [id number] Implanted:Qty: 1 on 12/16/2016 by Kt Molina MD at OR [facility] Right: Eye BAUSCH & LOMB 04/23/2021 [id number] / [id number] / [id number] Vectris 1x8 Compact Trial Screening Implanted:Qty: 1 on 05/19/2023 by Dimas Powers DO at OR 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 No Full Code 11/07/2009 9:32 PM 11/12/2009 9:58 PM This order reflects the patients wishes and were consensually agreed upon. Question Answer Comments Discussion of Advance Directives occurred with: Not Discussed Care Teams Delivery Director Relationship Specialty Start Date End Date Saritha Bishop DO [address] [place], [place] [address] PCP - General Family Medicine 05/30/11 documented as of this encounter
--- OUTSIDE RECORDS SUMMARY | 2023-06-23 06:39 | External Medical Summary | Summary of Care ---
Author Name Unknown Organization [facility] Address [address] [place] [address] Phone [phone] Care Team Providers Care Welfare Service Aide Name Role Phone Saritha Bishop DO Primary Care Provider Reason for Visit * Reason Onset Date Comments Test Results 06/21/2023 Encounter Details Date Type Department Care Team (Late st Contact Info) Description 06/21/2023 Telephone Family Practice [facility] 200 [facility] [place] [address] Saritha Bishop DO 200 [facility] [place] [address] Test Results Allergies Active Allergy Reactions Criticality [...] mg by mouth daily. 0 09/04/2020 Active [place]-3 1000 MG Oral Capsule Take by mouth. [...] SUNDAYS 100 Tablet 1 03/03/2023 Active Pyridostigmine [place] 60 MG Oral Tablet (Mestinon) 1/2 tab [...] mRNA, LNP-s, No Pre serve, 2-Dose Series ([employer]) 05/18/2021,10/04/2020,09/06/2020 Pneumococcal Conjugate Vacc, 13 Valent (Prevnar) [...] Bai RN - 06/22/2023 1:51 PM EST [place] plan built and routed for signature. Waiting [...] to have a permanent stimulator placed at [facility]. Advised her that we will follow up [...] there is anything else he suggests. Called [facility] and was transferred to pre-admission testing. Left [...] him. Blood workup done on 06/13/2023 at [facility]: -WBC 9300, H&H of 7.2/20.7, [place] 109521, MCV of 96.7. -BUN/Creat: 40/1.1. Calcium 8.1 [...] - 06/21/2023 3:26 PM EST Linda with [facility] called in regards to the patient's pre op labs coming back. She said that her Hemoglobin was 7.2 and her hematocrit was 23.7. The patient has an appt with Dr. Herrign on 06/28/2023 for a pre op appt but the PA from [facility] wanted us to be aware of thelab results before then. documented in this encounter Plan of Treatment Upcoming Encounters Date Type Department Care Team (Late st Contact Info) Description 06/24/2023 11:20 AM EST Office Visit Neurology [facility] 200 [facility] [place] [address] Contreras Enriquez, 200 [facility] [place] [address] 06/28/2023 6:20 PM EST Office Visit Family Practice [facility] 200 [facility] [place] [address] Karol Herring MD 200 [facility] [place] [address] 08/09/2023 11:00 AM EST Telemedicine [facility], [facility] [place] [address] Dimas Powers, [address] [place] [address] 09/23/2023 11:20 AM EST Office Visit Nephrology, [address], [place] [phone] Alex Olivares MD [address] [place] [phone] 09/30/2023 2:00 PM EST Nurse Only Ancillary [facility] [address] [place] [address] Kimmie Nurse Annual Wellness [facility] 200 [facility] [place] [address] 11/14/2023 2:00 PM EDT Office Visit Hematology/Oncology [facility] [address] [place] [address] Amauri Gustafson MD [address] [place] [address] 11/28/2023 3:00 PM EDT Office Visit Family Practice [facility] [place] [address] [place] [address] Saritha Bishop DO 200 [facility] [place] [address] 04/19/2024 11:00 AM EDT Imaging Radiology [facility]st [facility] 132 [facility] [place] [address] Scheduled Procedures Name Priority Associated Diagnoses Date/Ti [...] Screening 09/28/2023 09/27/2022 CKD PHOS USE SMARTSET 55132 11/02/2023 04/, 10/14/2021, 03/04/2020, Additional history exists TSH 11/02/2023 11/01/2022, 050 08/2021, 10/20/2020, Additional history exists GFR 11/03/2023 05/04/2023, 02/23, 12/06/2022, Additional history exists Diabetic Eye Exam 11/29/2023 11/28/2022, , 12/10/2020, Additional history exists CKD HGB USE SMARTSET 08290 05/04/202405/04, 05/04/2023, 01/17/2023, Additional history exists Albumin/Creatinine Ratio 05/25/2024 023, 04/26/2022, 10/27/2020, Additional history exists DTaP,Tdap,and Td Vaccines (4 - Td or Tdap) 05/09/2029 05/09/2019, 10/24/2018, 11/29/2008 DXA Scan 05/12/2029 05/12/2022, 070 01/2014, 12/10/2010 Pneumococcal Vaccine: 65+ Years Completed 04/09/2019, 11/19/2016, 10/25/2009 Zoster Vaccines Completed 07/30/2019, 04/24, 04/09/2019, Additional history exists GARDASIL-HPV IMMUNIZATION SERIES Aged Out No longer eligible based on patient's age to complete this topic MENINGOCOCCAL (MENACTRA/MENVEO) Aged Out No longer eligible based on patient's age to complete this topic documented as of this encounter Medical Devices Implanted Type Area Paper Pattern Folder Device Identifier Shelf Expiration Date Model / Serial / Lot Lens Intraoc 16.0 - [id number] - [id number] Implanted:Qty: 1 on 11/30/2016 by Kt Molina MD at OR [facility] Left: Eye BAUSCH & LOMB 04/23/2021 [id number] / [id number] / [id number] Lens Intraoc 16.0 - [id number] - [id number] Implanted:Qty: 1 on 12/16/2016 by Kt Molina MD at OR [facility] Right: Eye BAUSCH & LOMB 04/23/2021 [id number] / [id number] / [id number] Vectris 1x8 Compact Trial Screening Implanted:Qty: 1 on 05/19/2023 by Dimas Powers DO at OR [facility] Right: Back [employer] : NEUROLOGIC PAIN 02/11/2027 [id number] / / [id number] documented as of this encounter Visit Diagnoses Diagnosis Other iron deficiency anemia- Primary documented in this encounter Advance Directives Documents on File Type Date Recorded Patient Director Advanced Expl anation Advance Directives and Living Will [...] the patient have Health Care Power of Shade Maker? No Full Code 11/07/2009 9:32 PM 11/12/2009 9:58 PM This order reflects the patients wishes and were consensually agreed upon. Question Answer Comments Discussion of Advance Directives occurred with: Not Discussed Care Teams Welfare Service Aide Relationship Specialty Start Date End Date Saritha Bishop DO [address] [place] [address] PCP - General Family Medicine 05/30/11 documented as of this encounter
--- OUTSIDE RECORDS SUMMARY | 2023-06-23 06:39 | External Medical Summary | Summary of Care ---
Author Name Unknown Organization [facility] Address [address] [place] [address] Phone [phone] Care Team Providers Care Motor Vehicle Salesperson Name Role Phone Saritha Bishop DO Primary Care Provider Reason for Visit * Reason Onset Date Comments Test Results 06/21/2023 Encounter Details Date Type Department Care Team (Late st Contact Info) Description 06/21/2023 Telephone Family Practice [facility] 200 [facility] [place] [address] Saritha Bishop DO 200 [facility] [place] [address] Test Results Allergies Active Allergy Reactions Criticality [...] mg by mouth daily. 0 09/04/2020 Active [place]-3 1000 MG Oral Capsule Take by mouth. [...] SUNDAYS 100 Tablet 1 03/03/2023 Active Pyridostigmine [place] 60 MG Oral Tablet (Mestinon) 1/2 tab [...] mRNA, LNP-s, No Pre serve, 2-Dose Series ([employer]) 05/18/2021,10/04/2020,09/06/2020 Pneumococcal Conjugate Vacc, 13 Valent (Prevnar) [...] if needed. Patient agreeable, will go to [facility]. Called [facility] ER to make them aware patient is coming. * Telephone Encounter - Kelsea Bai RN - 06/22/2023 1:51 PM EST [place] plan built and routed for signature. Waiting for auth. Called patient. She notes that she recently started having black tarry stools. She is having slightSOB but is still able to do her normal activities. She has noticed more fatigue- states that she went to [place] [facility] this morning and was exhausted/ had [...] to have a permanent stimulator placed at [facility]. Advised her that we will follow [...] there is anything else he suggests. Called [facility] and was transferred to pre-admission testing. [...] 9300, H&H of 7.2/20.7, Platelet count of 701498, MCV of 96.7. -BUN/Creat: 40/1.1. Calcium 8.1 [...] - 06/21/2023 3:26 PM EST Linda with [facility] called in regards to the patient's pre op labs coming back. She said that her Hemoglobin was 7.2 and her hematocrit was 23.7. The patient has an appt with Dr. Herring on 06/28/2023 for a pre op appt but the PA from [facility] wanted us to be aware of thelab results before then. documented in this encounter Plan of Treatment Upcoming Encounters Date Type Department Care Team (Late st Contact Info) Description 06/24/2023 11:20 AM EST Office Visit Neurology [place] [facility] 200 [facility] [place] [address] Contreras Enriquez DO 200 [facility] [place] [address] 06/28/2023 6:20 PM EST Office Visit Family Practice [facility] [place], [place] [address] [place] [address] Karol Herring MD [address] [place], [place] [address] 08/09/2023 11:00 AM EST Telemedicine Interventional [facility] Center, [facility] [place] [address] Dimas Powers, DO 132 [facility] [place] [address] 09/23/2023 11:20 AM EST Office Visit Nephrology, [address] [address] Alex Olivares MD [address] [place] [address] 09/30/2023 2:00 PM EST Nurse Only Ancillary [facility] [address] [place] [address] [place], Nurse Annual Wellness [facility] [address] [place], [place] [address] 11/14/2023 2:00 PM EDT Office Visit Hematology/Oncology [facility] [address] [place], [place] [address] Amauri Gustafson MD [address] [place], [place] [address] 11/28/2023 3:00 PM EDT Office Visit [facility] [address] [place] [address] Saritha Bishop DO [address] [place], [place] [address] 04/19/2024 11:00 AM EDT Imaging Radiology [facility] 1st [facility] [address] [place] [address] Scheduled Procedures Name Priority Associated Diagnoses Date/Ti me COLONOSCOPY FLEXIBLE PROXIMAL DIAGNOSTIC Recall Screen for colon cancer Health Maintenance Due Date Last Done Comments Hepatitis B (1 of 3 - Risk 3-dose series) 2005 COVID-19 Vaccine ( - season) 2023 05/18/2021, 10/04/2020, 09/06/2020 Influenza Vaccine (FLU shot) (#1) 2023 07/12/2022, 05/18/2021, 04/08/2020, Additional history exists HbA1c 05/03/2023 11/01/2022, 010 09/2022, 04/26/2022, Additional history exists Diabetic Foot Exam 07/29/2023 07/29/2022, 10/12/2021 Depression Screening 09/28/2023 09/27/2022 CKD PHOS USE SMARTSET 21448 11/02/2023 04/1 , 10/14/2021, 03/04/2020, Additional history exists TSH 11/02/2023 11/01/2022, 05/0 08/2021, 10/20/2020, Additional history exists GFR 11/03/2023 05/04/2023, 02/23, 12/06/2022, Additional history exists Diabetic Eye Exam 11/29/2023 11/28/2022, , 12/10/2020, Additional history exists CKD HGB USE SMARTSET 01427 05/04/202405/04, 05/04/2023, 01/17/2023, Additional history exists Albumin/Creatinine [...] this encounter Medical Devices Implanted Type Area Postulant Device Identifier Shelf Expiration Date Model / Serial / Lot Lens Intraoc 16.0 - [id number] - [id number] Implanted:Qty: 1 on 11/30/2016 by Kt Molina MD at OR [facility] Left: Eye BAUSCH & LOMB 04/23/2021 [id number] / [id number] / [id number] Lens Intraoc 16.0 - [id number] - [id number] Implanted:Qty: 1 on 12/16/2016 by Kt Molina MD at OR [facility] Right: Eye BAUSCH & LOMB 04/23/2021 [id number] / [id number] / [id number] Vectris 1x8 Compact Trial Screening Implanted:Qty: 1 on 05/19/2023 by Dimas Powers DO at OR [facility] Right: Back [employer] : NEUROLOGIC PAIN 02/11/2027 [id number] / / [id number] documented as of this encounter Visit Diagnoses Diagnosis Other iron deficiency anemia- Primary documented in this encounter Advance Directives Documents on File Type Date Recorded Patient Apartment Groundskeeper Expl anation Advance Directives and Living Will [...] the patient have Health Care Power of Overcoil Stepper? No Full Code 11/07/2009 9:32 PM 11/12/2009 9:58 PM This order reflects the patients wishes and were consensually agreed upon. Question Answer Comments Discussion of Advance Directives occurred with: Not Discussed Care Teams Motor Vehicle Salesperson Relationship Specialty Start Date End Date Saritha Bishop DO [address] [place] [address] PCP - General Family Medicine 05/30/11 documented as of this encounter
--- OUTSIDE RECORDS SUMMARY | 2023-06-23 06:39 | External Medical Summary | Summary of Care ---
Author Name Unknown Organization [facility] Address [address] [place] [address] Phone [phone] Care Team Providers Care Product Communications Manager Name Role Phone Saritha Bishop DO Primary Care Provider Reason for Visit * Reason Onset Date Comments Test Results 06/21/2023 Encounter Details Date Type Department Care Team (Late st Contact Info) Description 06/21/2023 Telephone Family Practice [facility] 200 [facility] [address] Saritha Bishop DO 200 [facility] [place] [address] Test Results Allergies Active Allergy Reactions Criticality [...] mg by mouth daily. 0 09/04/2020 Active [place]-3 1000 MG Oral Capsule Take by mouth. [...] SUNDAYS 100 Tablet 1 03/03/2023 Active Pyridostigmine [place] 60 MG Oral Tablet (Mestinon) 1/2 tab [...] mRNA, LNP-s, No Pre serve, 2-Dose Series ([employer]) 05/18/2021,10/04/2020,09/06/2020 Pneumococcal Conjugate Vacc, 13 Valent (Prevnar) [...] him. Blood workup done on 06/13/2023 at [facility]: -WBC 9300, H&H of 7.2/20.7, Platelet count of 155530, MCV of 96.7. -BUN/Creat: 40/1.1. Calcium 8.1 [...] - 06/21/2023 3:26 PM EST Linda with [facility] called in regards to the patient's pre op labs coming back. She said that her Hemoglobin was 7.2 and her hematocrit was 23.7. The patient has an appt with Dr. Herring on 06/28/2023 for a pre op appt but the PA from [facility] wanted us to be aware of thelab results before then. documented in this encounter Plan of Treatment Upcoming Encounters Date Type Department Care Team (Late st Contact Info) Description 06/24/2023 11:20 AM EST Office Visit Neurology [facility] [address] [place] [place] [address] Contreras Enriquez DO [address] [place] [place] [address] 06/28/2023 6:20 PM EST Office Visit [facility] [place] [address] [place] [place] [address] Karol Herring MD [address] [place] [place] [address] 08/09/2023 11:00 AM EST Telemedicine Interventional [facility] Center, [facility] 132 [facility] [place] [address] Dimas Powers, DO 132 [facility] [place] [phone] 09/23/2023 11:20 AM EST Office Visit Nephrology, [address] [address] Alex Olivares MD [address] [place] [address] 09/30/2023 2:00 PM EST Nurse Only Ancillary [facility] [address] [place] [address] [place], Nurse Annual Wellness [facility] [place] [address] 11/14/2023 2:00 PM EDT Office Visit Hematology/Oncology [facility] [address] [place] [address] Amauri Gustafson MD 200 [facility] [place] [address] 11/28/2023 3:00 PM EDT Office Visit Family Practice [facility] [address] [place] [address] Saritha Bishop, 200 [facility] [place] [address] 04/19/2024 11:00 AM EDT Imaging Radiology [facility] 1st [facility] [address] [place] [address] Scheduled Procedures Name Priority Associated Diagnoses Date/Ti [...] Screening 09/28/2023 09/27/2022 CKD PHOS USE SMARTSET 11548 11/02/2023 04, 10/14/2021, 03/04/2020, Additional history exists TSH 11/02/2023 11/01/2022, 08/2021, 10/20/2020, Additional history exists GFR 11/03/2023 05/04/2023, 02/23, 12/06/2022, Additional history exists Diabetic Eye Exam 11/29/2023 11/28/2022, , 12/10/2020, Additional history exists CKD HGB USE SMARTSET 74359 05/04/202405/04, 05/04/2023, 01/17/2023, Additional history exists Albumin/Creatinine [...] this encounter Medical Devices Implanted Type Area Senior Ruby Developer Device Identifier Shelf Expiration Date Model / Serial / Lot Lens Intraoc 16.0 - [id number] - [id number] Implanted:Qty: 1 on 11/30/2016 by Kt Molina MD at OR [facility] Left: Eye BAUSCH & LOMB 04/23/2021 [id number] / [id number] / [id number] Lens Intraoc 16.0 - [id number] - [id number] Implanted:Qty: 1 on 12/16/2016 by Kt Molina MD at OR [facility] Right: Eye BAUSCH & LOMB 04/23/2021 [id number] / [id number] / [id number] Vectris 1x8 Compact Trial Screening Implanted:Qty: 1 on 05/19/2023 by Dimas Powers DO at OR [facility] Right: Back [employer] : NEUROLOGIC PAIN 02/11/2027 [id number] / / [id number] documented as of this encounter Visit Diagnoses Diagnosis Other iron deficiency anemia- Primary documented in this encounter Advance Directives Documents on File Type Date Recorded 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 No Full Code 11/07/2009 9:32 PM 11/12/2009 9:58 PM This order reflects the patients wishes and were consensually agreed upon. Question Answer Comments Discussion of Advance Directives occurred with: Not Discussed Care Teams Product Communications Manager Relationship Specialty Start Date End Date Saritha Bishop DO [address] [place] [address] PCP - General Family Medicine 05/30/11 documented as of this encounter
--- OUTSIDE RECORDS SUMMARY | 2023-06-23 06:39 | External Medical Summary | Summary of Care ---
Author Name Unknown Organization [facility] Address [address] [place] [address] Phone [phone] Care Team Providers Care Vehicle Fuel Systems Converter Name Role Phone Saritha Bishop DO Primary Care Provider Encounter Details Date Type Department Care Team (Late st Contact Info) Description 06/22/2023 Orders Only Hematology/Oncology Treatment, [place] [address] [place] [address] Richmond Carvalho MD [address] [place] [address] Allergies Active Allergy Reactions Criticality Noted Date [...] mg by mouth daily. 0 09/04/2020 Active [place]-3 1000 MG Oral Capsule Take by mouth. [...] SUNDAYS 100 Tablet 1 03/03/2023 Active Pyridostigmine [place] 60 MG Oral Tablet (Mestinon) 1/2 tab at bedtime x 5 days then increase to 1/2 tab twice daily x 5 days then 1/2 tab three times daily after 2 weeks on 1/2 tab Three times daily increase to 1 [...] mRNA, LNP-s, No Pre serve, 2-Dose Series ([employer]) 05/18/2021,10/04/2020,09/06/2020 Pneumococcal Conjugate Vacc, 13 Valent (Prevnar) [...] on file documented as of this encounter Plan of Treatment Upcoming Encounters Date Type Department Care Team (Late st Contact Info) Description 06/24/2023 11:20 AM EST Office Visit Neurology [facility] [address] [place] [address] Contreras Enriquez, DO 200 [facility] [place] [address] 06/28/2023 6:20 PM EST Office Visit Family Practice [facility] [address] [place] [place] [address] Karol Herring MD 200 [facility] [place] [address] 08/09/2023 11:00 AM EST Telemedicine Interventional Pain Center, [facility] [address] [place] [address] Dimas Powers, DO [address] [place] [phone] 09/23/2023 11:20 AM EST Office Visit Nephrology, [address] [address] Alex Olivares MD [address] [place] [address] 09/30/2023 2:00 PM EST Nurse Only Ancillary [facility] Kim[place] [address] [place] [address] [address] [place], Nurse Annual Wellness [place] [address] [place] [address] 11/14/2023 2:00 PM EDT Office Visit Hematology/Oncology [facility] [place] [address] [place] [address] [address] Amauri Gustafson MD 200 [facility] [place] [address] 11/28/2023 3:00 PM EDT Office Visit Family Practice [facility] 200 [facility] [place] [address] Saritha Bishop DO 200 [facility] [place] [address] 04/19/2024 11:00 AM EDT Imaging Radiology [address] 132 [facility] [place] [address] Scheduled Procedures Name Priority Associated Diagnoses Date/Ti [...] Screening 09/28/2023 09/27/2022 CKD PHOS USE SMARTSET 45948 11/02/2023 04/, 10/14/2021, 03/04/2020, Additional history exists TSH 11/02/2023 11/01/2022, 08/2021, 10/20/2020, Additional history exists GFR 11/03/2023 05/04/2023, 02/23, 12/06/2022, Additional history exists Diabetic Eye Exam 11/29/2023 11/28/2022, , 12/10/2020, Additional history exists CKD HGB USE SMARTSET 66915 05/04/202405/04, 05/04/2023, 01/17/2023, Additional history exists Albumin/Creatinine Ratio 05/25/20242 023, 04/26/2022, 10/27/2020, Additional history exists DTaP,Tdap,and [...] this encounter Medical Devices Implanted Type Area Caustic Room Attendant Device Identifier Shelf Expiration Date Model / Serial / Lot Lens Intraoc 16.0 - [id number] - [id number] Implanted:Qty: 1 on 11/30/2016 by Kt Molina MD at OR [facility] Left: Eye BAUSCH & LOMB 04/23/2021 [id number] / [id number] / [id number] Lens Intraoc 16.0 - [id number] - [id number] Implanted:Qty: 1 on 12/16/2016 by Kt Molina MD at OR [facility] Right: Eye BAUSCH & LOMB 04/23/2021 [id number] / [id number] / [id number] Vectris 1x8 Compact Trial Screening Implanted:Qty: 1 on 05/19/2023 by Dimas Powers DO at OR [facility] Right: Back [employer] : NEUROLOGIC PAIN 02/11/2027 [id number] / / [id number] documented as of this encounter Advance Directives Documents on File Type Date Recorded Patient Supervisor Fabrication And Assembly Expl anation Advance Directives and Living Will [...] the patient have Health Care Power of Residence Supervisor? No Full Code 11/07/2009 9:32 PM 11/12/2009 9:58 PM This order reflects the patients wishes and were consensually agreed upon. Question Answer Comments Discussion of Advance Directives occurred with: Not Discussed Care Teams Vehicle Fuel Systems Converter Relationship Specialty Start Date End Date Saritha Bishop DO [address] [place] [address] PCP - General Family Medicine 05/30/11 documented as of this encounter
--- OUTSIDE RECORDS SUMMARY | 2023-06-23 06:39 | External Medical Summary | Summary of Care ---
Author Name Unknown Organization [facility] Address [address] [place] [address] Phone [phone] Care Team Providers Care Medical Records Field Technician Name Role Phone Saritha Bishop DO Primary Care Provider Reason for Visit * Reason Comments Outpatient Testing Encounter Details Date Type Department Care Team (Late st Contact Info) Description 06/22/2023 2:50 PM EST Laboratory Laboratory, [place] [address] [place] [address] [place] [address], [place] [id number] Type 2 diabetes mellitus with diabetic mononeuropathy, without long-term current use of insulin (HCC); Iron deficiency anemia due to chronic blood loss Allergies Active Allergy Reactions Criticality Noted Date [...] mg by mouth daily. 0 09/04/2020 Active Winchester-3 1000 MG Oral Capsule Take by mouth. [...] SUNDAYS 100 Tablet 1 03/03/2023 Active Pyridostigmine Glouster 60 MG Oral Tablet (Mestinon) 1/2 tab [...] chronic kidney disease 11/08/2009 06/05/2020 Follow-up examination, pinedao wing other surgery 10/26/2009 09/05/2017 Acute gastrojejunal [...] mRNA, LNP-s, No Pre serve, 2-Dose Series (Pfizer) 05/18/2021,10/04/2020,09/06/2020 Pneumococcal Conjugate Vacc, 13 Valent (Prevnar) [...] Influenza, Split, I IV3, With Preserve, Inj 04/11/2015,04/06/2014,06/12/2012,1009/2010,07/13/2010,04/23/2009,05/07/20 08 04/06/2015 Seasonal Influenza, Trivalen t, High [...] 06/24/2023 11:20 AM EST Office Visit Neurology [facility] [address] [place] [address] Contreras Enriquez, DO [address] [place] [address] 06/28/2023 6:20 PM EST Office Visit Family Practice [facility] [address] [place] [address] Karol Herring MD [address] [place] [place] [address] 08/09/2023 11:00 AM EST Telemedicine [facility], [facility] [address] [facility] [place] [address] Dimas Powers, DO [address] [facility] [place] [phone] 09/23/2023 11:20 AM EST Office Visit Nephrology, [address] [address] Alex Olivares MD [address] [place] [phone] 09/30/2023 2:00 PM EST Nurse Only Ancillary [facility] [address] [place] [address] [place], Nurse Annual Wellness [facility] [address] [place] [address] 11/14/2023 2:00 PM EDT Office Visit Hematology/Oncology [facility] [address] [address] Amauri Gustafson MD [address] [facility] [place] [place] [address] 11/28/2023 3:00 PM EDT Office Visit Family Practice [facility] [address] [address] Saritha Bishop DO [address] [facility] [place] [address] 04/19/2024 11:00 AM EDT Imaging Radiology [address] [facility] [place] [address] Pending Results Name Type Priority Associated Diagnoses Date /Time HEMOGLOBIN A1C Lab Routine Type 2 diabetes mellitus with diabetic mononeuropathy, without long-term current use of insulin (HCC) 06/22/2023 2:51 PM EST FERRITIN Lab STAT Iron deficiency anemia due to chronic blood loss 06/22/2023 2:51 PM EST IRON SCREEN, INCLUDING TIBC Lab STAT Iron deficiency anemia due to chronic blood loss 06/22/2023 2:51 PM EST VITAMIN B12 Lab STAT Iron deficiency anemia due to chronic blood loss 06/22/2023 2:51 PM EST FOLIC ACID Lab STAT Iron deficiency anemia due to chronic blood loss 06/22/2023 2:51 PM EST Scheduled Procedures Name Priority Associated Diagnoses Date/Ti [...] Screening 09/28/2023 09/27/2022 CKD PHOS USE SMARTSET 25885 11/02/2023 04/1 , 10/14/2021, 03/04/2020, Additional history exists TSH 11/02/2023 11/01/2022, 0508/2021, 10/20/2020, Additional history exists GFR 11/03/2023 05/04/2023, 02/23, 12/06/2022, Additional history exists Diabetic Eye Exam 11/29/2023 11/28/2022, , 12/10/2020, Additional history exists CKD HGB USE SMARTSET 40814 05/04/202405/04, 05/04/2023, 01/17/2023, Additional history exists Albumin/Creatinine [...] this encounter Medical Devices Implanted Type Area Full Roll Inspector Device Identifier Shelf Expiration Date Model / Serial / Lot Lens Intraoc 16.0 - [id number] - [id number] Implanted:Qty: 1 on 11/30/2016 by Kt Molina MD at OR [facility] Left: Eye [employer]CH [employer]OM[employer] 04/23/2021 [id number] / [id number] / [id number] Lens Intraoc 16.0 - [id number] - [id number] Implanted:Qty: 1 on 12/16/2016 by Kt Molina MD at OR [facility] Right: Eye [employer]OM[employer] 04/23/2021 [id number] / [id number] / [id number] Vectris 1x8 Compact Trial Screening Implanted:Qty: 1 on 05/19/2023 by Dimas Powers DO at OR [facility] Right: Back [employer] : NEUROLOGIC PAIN 02/11/2027 [id number] / / [id number] documented as of this encounter Visit Diagnoses Diagnosis Type 2 diabetes mellitus with diabetic mononeuropathy, without long-term current use of insulin (HCC) Iron deficiency anemia due to chronic blood loss Iron deficiency anemia secondary to blood loss (chronic) documented in this encounter Advance Directives Documents on File Type Date Recorded 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 No Full Code 11/07/2009 9:32 PM 11/12/2009 9:58 PM This order reflects the patients wishes and were consensually agreed upon. Question Answer Comments Discussion of Advance Directives occurred with: Not Discussed Care Teams Medical Records Field Technician Relationship Specialty Start Date End Date Saritha Bishop DO [address] [place] [address] PCP - General Family Medicine 05/30/11 documented as of this encounter
[2023-06-23 07:14] LABS: Basophils # (auto) 0.03 K/uL (0.00-0.20); Basophils % (auto) 0.6 %; Eosinophils # (auto) 0.15 K/uL (0.00-0.50); Eosinophils % (auto) 2.9 %; Hematocrit (blood only) 26.1 % (37.0-47.0); Hemoglobin 8.7 g/dl (12.0-16.0); Immature Granulocytes # (auto) 0.02 K/uL (0.01-0.20); Immature Granulocytes % (auto) 0.4 %; Lymphocytes # (auto) 1.81 K/uL (1.20-3.40); Lymphocytes % (auto) 35.4 %; Mean Corpuscular Hemoglobin 29.1 pg (25.0-34.0); Mean Corpuscular Hgb Conc 33.3 g/dL (32.0-36.0); Mean Corpuscular Volume 87.3 fL (80.0-100.0); Mean Platelet Volume 9.6 fL (9.4-12.4); Monocytes # (auto) 0.46 K/uL (0.11-0.59); Neutrophils # (auto) 2.64 K/uL (1.40-6.50); Neutrophils % (auto) 51.7 %; Platelet Count 291 K/uL (130-400); RDW Coefficient of Variation 16.1 % (11.5-14.5); Red Blood Count 2.99 M/uL (4.20-5.40); White Blood Count 5.11 K/ul (4.8-10.8)
[2023-06-23] MEDS: traMADol HCL 50 MG TABLET PO PRN (07:58)
[2023-06-23] MEDS: LORazepam 0.5 MG TAB PO PRN (07:58)
[2023-06-23] MEDS ORDERED: MULTIVITAMIN TAB PO SCH (09:00)
[2023-06-23] MEDS ORDERED: predniSONE 20 MG TAB PO SCH (09:00)
[2023-06-23] MEDS ORDERED: PRAZOSIN HCL 1 MG CAP PO SCH (09:00)
[2023-06-23] MEDS ORDERED: FLUTICASONE PROPIONATE NA SPR 16 GM BTL SCH (09:00)
[2023-06-23] MEDS ORDERED: LANTUS PER UNIT CHARGE SQ SCH (09:00)
[2023-06-23] MEDS ORDERED: amLODIPine BESYLATE 5 MG TAB PO SCH (09:00)
[2023-06-23] MEDS ORDERED: PANTOprazole 40 MG TAB PO SCH (09:00)
--- NOTE | 2023-06-23 11:01 | Gastrointestinal Consultation ---
Date of Consultation June 23, 2023 Assessment & Plan (1) ABLA (acute blood loss anemia): (2) Melena: Plan Agree with n.p.o., IV fluids, Protonix drip. EGD this afternoon by Dr. Shelley. Further recommendations to follow. Supervising Physician Co-Signing Physician Notes Attending attestation I have seen, examined this patient, and agree with the findings and above by our mid-level provider SHERRON Barajas, with the following additions: - Plan for EGD today History of Present Illness Reason for Consultation: UG Bleed Requesting Physician: Dr. Banegas Attending Physician: Justin Stauffer MD History of Present Illness Ms. Gina Brock is a 77-year-old female patient of Dr. Bishop with a hx of A- fib (not anticoagulated), HTN, HLD, CKD, anemia of chronic dx (sees Hem/onc), hypothyroidism, DM 2, breast cancer in the status post chemo and bone marrow transplant, mood disorder, myasthenia gravis (on prednisone) PUD S/P Billroth II in the . She has chronic back pain for which there is a plan for implantation of a stimulator. Her anemia was found as result of preop labs. However, patient has been passing 1 black formed bowel movement per day for approximately 2 weeks and did not seek medical care. She has not had any chest pain shortness of breath abdominal pain nausea or vomiting. She had a similar episode of melena and significant acute blood loss anemia in June of last year for which she underwent EGD colonoscopy video capsule endoscopy without a source of the bleeding. She denies any NSAID use but is on prednisone 20mg daily for myasthenia gravis. Baseline hemoglobin a month ago was 12, on arrival, hemoglobin was 6.7, she received 2 units of RBCs, hemoglobin this morning is 8.7. BUN is 29. She is awake alert oriented, hemodynamically stable, without any oxygen needs, is n.p.o. and on a Protonix drip. Allergies Allergy/AdvReac Type Severity Reaction Status Date / Time Sulfa (Sulfonamide Allergy Intermediate HIVES Verified 06/22/23 19:29 Antibiotics) metoclopramide AdvReac Intermediate depression Verified 06/22/23 19:29 Home Medications Medication Instructions Recorded Confirmed Type fluticasone propionate 50 2 spray intranasal QAM 10/15/18 06/22/23 History mcg/actuation nasal spray,suspension levothyroxine 50 mcg tablet 25 mcg PO 5XWK 10/15/18 06/22/23 History levothyroxine 50 mcg tablet 50 mcg PO 2XWK 10/15/18 06/22/23 History trazodone 50 mg tablet 50 mg PO HS 10/15/18 06/22/23 History ropinirole 4 mg tablet,extended 4 mg PO HS 06/17/20 06/22/23 History release 24 hr Wheelchair (Manual) #1 ea 01/01/21 06/22/23 Rx multivitamin 1 tab PO QAM 02/11/22 06/22/23 History magnesium malate, chelate 1,000 mg PO DAILY 07/09/22 06/22/23 History dkpwhbwm-fdt-luenwz 5 mg-zeaxanth 1 cap PO DAILY 07/09/22 06/22/23 History 1 mg-bilberry 7.5 mg-herbal capsule ([employer] Health Formula) tramadol 50 mg tablet 50 mg PO Q6H PRN Severe Pain 07/09/22 06/22/23 History (Scale Score 7-10) pantoprazole 40 mg tablet,delayed 40 mg PO QAM #30 tabs 07/12/22 06/22/23 Rx release amoxicillin 500 mg tablet 2,000 mg PO DIRECTED PRN PRIOR 07/20/22 06/22/23 History TO PROCEDURE omega-3 fatty acids 1,000 mg 1,000 mg PO DAILY 07/20/22 06/22/23 History capsule lifitegrast 5 % eye drops in a 1 drp ophthalmic (eye) BID 06/14/23 06/22/23 History dropperette (Xiidra) prednisone 20 mg tablet 20 mg PO QAM 06/14/23 06/22/23 History amlodipine 5 mg tablet 5 mg PO QAM 06/22/23 06/22/23 History glipizide 2.5 mg tablet, extended 2.5 mg PO DAILY 06/22/23 06/22/23 History release 24 hr prazosin 1 mg capsule 1 mg PO Q OTHER DAY 06/22/23 06/22/23 History Patient History Medical History HTN (hypertension) RLS (restless legs syndrome) Hypothyroidism Diabetes mellitus, type II glucose well controlled and stable GERD (gastroesophageal reflux disease) controlled Myasthenia gravis on prednisone daily follows with S neuro History of COVID-12 JUNE 2020 (HOSPITALIZED AT [facility])- denies current issues April 2022- symptoms resolved Polycystic ovarian disease no issues currently Spinal stenosis Hx of gastric ulcer RESULTING IN GASTRECTOMY (2012) Lyme disease x2 hx- treated (no current issues) anaplasmosis - 2019- treated (no current issues) History of TMJ disorder stable - mostly pain when flared up - no locking Macular degeneration History of depression Hx of migraines HX: breast cancer 1993- lumpectomy and chemo Hx of sleep apnea Was on BiPAP in the past- no issues since 2007 (was re-tested) CKD (chronic kidney disease), stage III stable Anemia due to chronic kidney disease pt states has issues w/ anemia Jun 2022- admitted to [facility] (black tarry stools)- was transfused Chronic sinusitis stable Surgical History S/P spinal surgery 09/2021 lumbar- [facility] History of ankle surgery LEFT (12/28/20) History of esophagogastroduodenoscopy (EGD) History of colonoscopy Hx of lumpectomy LEFT H/O bone marrow transplant 1993 History of tonsillectomy and adenoidectomy History of total right hip replacement History of cataract surgery RT/LEFT H/O oophorectomy History of appendectomy H/O sinus surgery History of partial mastectomy of left breast LEFT S/P subtotal gastrectomy D/T GASTRIC ULCERS H/O Billroth II operation Family History Father Atrial fibrillation Other No family history of adverse response to anesthesia Social History Smoking Status: Never smoker Second Hand Exposure: No; Do You Dip or Chew Tobacco: No; Hx Alcohol Use: No Hx Substance Use: No Preferred Language: Pakistani Communication Ability: Effective Vest Baster Required: No Beliefs That Will Affect Care: None marital status: / marital status details: within last 8-9 mo Current Living Situation: Alone Feels Safe at Home: Yes Assistive Devices: Glasses Review of Systems Review of Systems: ROS: Gen: Denies weakness, fevers, weight loss Eyes: No eye redness, or pain, no recent vision changes Resp: No SOB, no cough Cardio: No palpitations/irregular beats, no chest pain GI: No abdominal pain, no nausea/vomiting : Denies pain on urination Skin: No jaundice, itching or new rashes Physical Exam Constitutional: WD/WN, vitals as above Eyes: PERRL, conjunctivae normal, anicteric sclerae ENMT: external ear and nose normal, oropharynx normal Neck: trachea midline, no thyromegaly Respiratory: normal respiratory effort, lungs clear to auscultation Cardiovascular: RRR, no murmur, no edema Gastrointestinal (Abdomen): normal bowel sounds, soft, nontender, no hep atosplenomegaly Musculoskeletal: no cyanosis or clubbing, extremities motor strength 5/5 Neurologic: PERRL, EOMI, accommodation nl, no face palsy, no dysarthria Psychiatric: A+Ox3, euthymic affect Lymphatic: no cervical or axillary lymphadenopathy Results & Data Vital Signs (Past 12 Hours) Vital Signs Temp Pulse Pulse Resp BP BP Pulse Ox 06/23/23 07:54 70 20 132/72 98 06/23/23 07:05 65 06/23/23 04:01 80 14 105/69 98 06/23/23 01:08 37 C 74 16 110/61 98 06/23/23 00:45 72 06/23/23 00:14 06/22/23 23:47 36.9 C 70 16 113/89 96 06/22/23 23:17 36.9 C 94 H 18 124/104 H 94 06/22/23 23:02 36.8 C 77 16 109/65 97 O2 Del Method 06/23/23 07:54 Room Air 06/23/23 07:05 06/23/23 04:01 06/23/23 01:08 06/23/23 00:45 06/23/23 00:14 Room Air 06/22/23 23:47 06/22/23 23:17 06/22/23 23:02 Laboratory Results WBC 10, Hb 8.2, HCT 24, PLT S3 38, NA 139, K3.8, CL 109, CO2 26, BUN 29, CR 1.11, glucose 129
--- NOTE | 2023-06-23 12:30 | GI REPORT ---
Patient Name: Gina Brock Procedure Date: 06/23/2023 12:15 PM Date of : 1945 Admit Type: Inpatient Age: 77 Gender: Female Attending MD: Adilson Shelley MD, Procedure: Upper GI endoscopy Providers: Adilson Shelley MD Referring MD: Yuki Horton MD, Justin Stauffer Indications: Iron deficiency anemia, Melena Medicines: Propofol per Anesthesia Complications: No immediate complications. Estimated blood loss: None. Estimated Blood Loss: Estimated blood loss: none. Procedure: Pre-Anesthesia Assessment: - Pre-Anesthesia Assessment: - Prior to the procedure, a History and Physical was performed, and patient medications, allergies and sensitivities were reviewed. The patient's tolerance of previous anesthesia was reviewed. Please see Subitec for complete details. - The risks and benefits of the procedure and the sedation options and risks were discussed with the patient. All questions were answered and informed consent was obtained. - Patient identification and proposed procedure were verified prior to the procedure by the physician and the nurse. The procedure was verified in the pre-procedure area in the procedure room. After obtaining informed consent, the endoscope was passed carefully and meticuously under direct vision and only advanced when the lumen was clearly identified, C02 insuflation was utilized throughout the entirity of the procedure. Throughout the procedure, the patient's blood pressure, pulse, and oxygen saturations were monitored continuously. After obtaining informed consent, the endoscope was passed under direct vision. Throughout the procedure, the patient's blood pressure, pulse, and oxygen saturations were monitored continuously. The Endoscope was introduced through the mouth, and advanced to the jejunum. The upper GI endoscopy was accomplished without difficulty. The patient tolerated the procedure well. Findings: The examined esophagus was normal. Evidence of a patent Billroth II gastrojejunostomy was found. The gastrojejunal anastomosis was characterized by healthy appearing mucosa. This was traversed. The efferent limb was examined. The afferent limb was examined. The examined jejunum was normal. No signs of bleeding Impression: - Normal esophagus. - Patent Billroth II gastrojejunostomy was found, characterized by healthy appearing mucosa. - Normal examined jejunum. - No specimens collected. Recommendation: - Return patient to [facility] [place], colonoscopy tomorrow if patient agrees to remain in hospital. - Clear liquid diet. - If patient desires to go home as she expressed pre-operatively, then would schedule oupt colonoscopy next week. Adilson Shelley MD 06/23/2023 12:30:22 PM This report has been signed electronically. Note Initiated On: 06/23/2023 12:15 PM Number of Addenda: 0 I attest to the content of the Intraoperative Record and orders documented therein, exceptions below {[id number]}
[2023-06-23] MEDS ORDERED: PROPOFOL IV EMULSION 10 MG/ML 20 ML VIAL IV ONE (12:34)
[2023-06-23] MEDS ORDERED: LIDOCAINE 2% 2 ML VIAL/AMP(20MG/ML) INFIL ONE (12:34)
--- NOTE | 2023-06-23 14:03 | Electrocardiogram Report ---
Test Reason : Blood Pressure : / mmHG Vent. Rate : 089 BPM Atrial Rate : 089 BPM P-R Int : 146 ms QRS Dur : 076 ms QT Int : 354 ms P-R-T Axes : 053 -20 021 degrees QTc Int : 430 ms Normal sinus rhythm Low voltage QRS Borderline ECG When compared with ECG of 21-JUN-2023 10:21, No significant change was found Confirmed by Gopal Webster ([id number]) on 06/23/2023 2:03:48 PM Referred By: Yuki Horton Confirmed By:Suresh Webster
--- NOTE | 2023-06-23 15:13 | Anesthesiology Progress Note ---
Date of Service June 23, 2023 Anesthesia Post Procedure Vital Signs Vital Signs: Temp Pulse Pulse Resp BP BP Pulse Ox 06/23/23 12:57 78 16 128/74 98 06/23/23 12:47 89 16 118/70 98 06/23/23 12:32 88 16 116/54 L 95 06/23/23 07:54 70 20 132/72 98 06/23/23 07:05 65 06/23/23 04:01 80 14 105/69 98 06/23/23 01:08 37 C 74 16 110/61 98 06/23/23 00:45 72 06/23/23 00:14 06/22/23 23:47 36.9 C 70 16 113/89 96 06/22/23 23:17 36.9 C 94 H 18 124/104 H 94 06/22/23 23:02 36.8 C 77 16 109/65 97 06/22/23 22:46 36.9 C 80 18 134/69 98 06/22/23 22:42 36.9 C 80 18 134/69 98 06/22/23 21:54 36.8 C 72 18 116/67 97 06/22/23 21:53 36.8 C 72 18 116/67 97 06/22/23 21:01 36.9 C 71 18 116/68 99 06/22/23 20:31 36.9 C 71 15 119/67 98 06/22/23 20:16 37.1 C 78 12 110/65 96 06/22/23 19:56 37.0 C 78 18 120/62 97 06/22/23 19:22 85 19 132/72 98 06/22/23 18:43 98 H 06/22/23 17:27 36.9 C 116 H 19 159/73 H 98 O2 Del Method 06/23/23 12:57 Room Air 06/23/23 12:47 Room Air 06/23/23 12:32 Room Air 06/23/23 07:54 Room Air 06/23/23 07:05 06/23/23 04:01 06/23/23 01:08 06/23/23 00:45 06/23/23 00:14 Room Air 06/22/23 23:47 06/22/23 23:17 06/22/23 23:02 06/22/23 22:46 06/22/23 22:42 06/22/23 21:54 06/22/23 21:53 06/22/23 21:01 06/22/23 20:31 06/22/23 20:16 06/22/23 19:56 06/22/23 19:22 Room Air 06/22/23 18:43 06/22/23 17:27 Room Air Pain Intensity Lower Back: Pain Intensity: 10 Transfer of Care Handoff Completed per policy Notes Mental Status: alert / awake / arousable and participated in evaluation Patient Amnestic to Procedure: Yes Nausea / Vomiting: adequately controlled Pain: adequately controlled Airway Patency, RR, SpO2: stable & adequate BP & HR: stable & adequate Hydration State: stable & adequate Anesthetic Complications: no major complications apparent
--- NOTE | 2023-06-23 15:42 | Hospitalist Progress Note ---
Date of Service June 23, 2023 Assessment & Plan (1) Anemia: Plan: Acute Blood Loss Anemia per admitting service notes with addendum: ACUTE BLOOD LOSS ANEMIA History PUD status post gastrectomy History H. pylori status posttreatment Status post EGD, by Dr. Adilson castro: Normal esophagus Patent Billroth II gastrojejunostomy was found, characterized by healthy- appearing mucosa Normal examined jejunum No specimens collected Patient declining inpatient colonoscopy, would be scheduled for colonoscopy next week Hemoglobin increased from 6.8, to 8.7 after 2 units of packed RBCs transfused Patient said to have IV infusion at the hematology clinic tomorrow Follows with loss prevention guard for anemia Patient declining to stay for another night for hospital observation Needs to follow-up with PCP in 1 week as well She has been advised to return to the ER immediately if she continues to have melena, hematochezia, weakness, dizziness, shortness of breath, etc. Patient verbalized understanding and agreement PAF, patient currently NSR Hypertension, stable Hyperlipidemia on statin Rx CKD, creatinine at baseline hypothyroidism, euthyroid as of recent outpatient TSH DM2 on oral medications, reasonable control as of recent outpatient hemoglobin A1c of 7.4 this month breast cancer status post surgery, high-dose chemotherapy status post bone marrow transplantation Mood disorder, stable patient steroid Rx Failed back syndrome, permanent stimulator placement contemplated next month past tobacco abuse Myasthenia gravis, patient is scheduled to see her [facility] neurologist tomorrow, and prefers to keep that appointment No new neurological symptoms reported Disposition Discharged home Follow-up with PCP in 1 week plan of care discussed with patient in detail and at length all questions answered she is understanding, agreeable, comfortable with the plan of care (2) CKD (chronic kidney disease), stage III: (3) Diabetes mellitus, type II: (4) HTN (hypertension): (5) Hypothyroidism: (6) RLS (restless legs syndrome): (7) Myasthenia gravis: (8) HX: breast cancer: Plan: Assessment and Plan per Dr Banegas. See addendum. Admission and Anticipated Discharge Date Admission Date: June 22, 2023 Subjective Follow-up for melena, etc. Seen resting in bed, comfortable, not in distress States she feels much better overall Denies weakness, dizziness, shortness of breath, chest pain, palpitations, abdominal pain No recurrence of melena hematochezia while admitted No focal neurologic symptoms Patient is very adamant to being discharged today She states she has appointment with IV iron infusion and a neurologist appointment tomorrow which she has been waiting for for the past several months Explained to the patient that standard of care for patients with suspected GI bleed is to observe them for another at least 24 hours to monitor for recurrence of possible underlying GI bleed, Possible decrease in hemoglobin necessitating transfusion, etc. Patient very adamant to be discharged today so she can make it to her appointments tomorrow Explained discharging her this afternoon will be deviating from the standard of care Patient verbalized understanding of risks involved with leaving the hospital today including worsening of medical condition, bleeding, endorgan damage, injuries, paralysis, even Patient requested not to sign out AMA as doing so may negate insurance coverage for hospital stay including EGD, and she has a fixed income Review of Systems Review of Systems: all noted and negative except for above Physical Exam Physical Exam: General- oriented x 3, not in distress, speaks in sentences with no effort or accessory muscle use Eyes- anicteric Neck- no JVD Lungs- clear breath sounds bilaterally, no rales/wheezes Heart- normal rate, regular rhythm; no murmurs Abdomen- normal bowel sounds, nondistended, soft, no tenderness Extremities- no pretibial edema, no calf tenderness Neuro- alert, oriented x 3; no gross focal neurologic deficits Skin- warm & dry Results & Data Results & Data Vital Signs (Past 12 Hours) Vital Signs Pulse Pulse Resp BP BP Pulse Ox O2 Del Method 06/23/23 12:57 78 16 128/74 98 Room Air 06/23/23 12:47 89 16 118/70 98 Room Air 06/23/23 12:32 88 16 116/54 L 95 Room Air 06/23/23 07:54 70 20 132/72 98 Room Air 06/23/23 07:05 65 06/23/23 04:01 80 14 105/69 98 all noted and reviewed including below (2) CKD (chronic kidney disease), stage III Chronic kidney disease stage 3 subtype: stage 3b (GFR 30-44) Qualified Code(s): N18.32 - Chronic kidney disease, stage 3b
[2023-06-23 15:55] VITALS: BP 126/84; PULSE 74; RESP 18; O2SAT 97
[2023-06-24] MEDS ORDERED: LEVOTHYROXINE SODIUM 25 MCG TABLET PO SCH (06:30)
== END 2023-06-23 15:52 | disposition home or self-care (01) | DRG 378 ==
LOC: ED 16:57 → EDINP 21:44

== ENCOUNTER 2023-07-06 11:23 | Inpatient (IN) ==
[2023-07-06 12:20] LABS: Albumin Globulin Ratio 1.7 (0.9-2); Albumin Level 3.1 gm/dl (3.4-5.0); BUN Creatinine Ratio 24.2 (10-20); Bilirubin,Total 0.3 mg/dl (0.2-1.0); Calcium 8.1 mg/dl (8.6-10.3); Creatinine Clr Calc Pharmacy 35.6 ml/min; Est GFR (African American) 48.5 ml/min; Est GFR (Non-African American) 41.9 ml/min; Globulin 1.8 gm/dl (2.5-4.0); Potassium 3.9 mmol/L (3.5-5.1); Total Protein 4.9 gm/dl (6.0-8.3)
[2023-07-06 12:26] LABS: Troponin I High Sensitivity 7.2 pg/ml (0-14)
[2023-07-06 12:29] LABS: Prothrombin Time 10.1 Seconds (9.0-12.0)
[2023-07-06 12:35] LABS: Hematocrit (blood only) 22.4 % (37.0-47.0); Hemoglobin 6.8 g/dl (12.0-16.0); Mean Corpuscular Hemoglobin 30.6 pg (25.0-34.0); Mean Corpuscular Hgb Conc 30.4 g/dL (32.0-36.0); Mean Corpuscular Volume 100.9 fL (80.0-100.0); Mean Platelet Volume 9.5 fL (9.4-12.4); Platelet Count 312 K/uL (130-400); RDW Coefficient of Variation 19.5 % (11.5-14.5); RDW Standard Deviation 67.9 fL (36.4-46.3); Red Blood Count 2.22 M/uL (4.20-5.40); White Blood Count 10.47 K/ul (4.8-10.8)
[2023-07-06] MEDS ORDERED: SODIUM CHLORIDE 0.9% 250 ML IV PRN ×2 (13:09→17:37)
[2023-07-06] MEDS ORDERED: PANTOprazole 80 MG in DEXTROSE 5% 100 ML IV ONE (13:10)
[2023-07-06] MEDS ORDERED: PANTOPRAZOLE BOLUS/DRIP IV STA (13:10)
[2023-07-06] MEDS ORDERED: PANTOprazole 40 MG in DEXTROSE 5% MINI-B 100 ML IV SCH (13:30)
--- NOTE | 2023-07-06 13:39 | History & Physical Report ---
Date of Service July 06, 2023 Assessment & Plan (1) Symptomatic anemia: (2) GI bleed: (3) H/O Billroth II operation: (4) S/P subtotal gastrectomy: Plan: Patient is 77-year-old PMH anemia of chronic disease, iron deficiency anemia, h/o PUD s/p Billroth 2 and had post op gastroparesis & failed treatment then had gastrectomy in 2010, h/o Breast cancer s/p surgery and chemo, CKD III, CLEMENTINA, depression, hypothyroidism, spinal stenosis, RLS, GERD, myasthenia gravis, presented to ER for significant anemia found on recent outpatient labs with Hgb of 6.4 on 07/05/2023. Reports dark color stools. 06/22/23 s/p 2 units PRBCs. 06/23/23 Hgb: 8.7. 06/23/23 EGD: normal esophagus, patent Billroth II gastrojejunostomy was found characterized by healthy-appearing mucosa, normal examined jejunum. Patient was given 2 units PRBCs with improvement of Hgb from 6.8 to 8.7. 06/24/23 IV iron Today in ER Hgb: 6.8 Possible GI bleed Reported heme+stools in ER In ER given PPI bolus and drip Continue IV PPI In ER 1unit PRBC started Repeat H&H after PRBC transfusion and likely will require another unit PRBC NPO midnight GI consult, spoke with [facility] recommends clear liquid diet and NPO midnight for possible scope tomorrow CBC, BMP in am (5) CKD (chronic kidney disease), stage III: Plan: Cr: 1.2. Baseline Cr: 1.1-1.2 Monitor renal functions, avoid nephrotoxic agents when possible (6) Diabetes mellitus, type II: Plan: A1c: 7.4 on 06/21/2023 Hold home Jardiance NovoLog sliding scale per protocol. Will be n.p.o. tonight so may need to further adjust tomorrow (7) HTN (hypertension): Plan: Continue amlodipine (8) Myasthenia gravis: Plan: Possible myasthenia gravis. Currently following with neuro for workup Is on prednisone daily Continue prednisone (9) Hypothyroidism: Plan: Continue levothyroxine (10) RLS (restless legs syndrome): Plan: Continue ropinirole (11) HX: breast cancer: Plan: S/P surgery, chemo History bone marrow transplant DVT Prophylaxis SCDs Full Code as per discussion with pt Follows with Dr Bishop for routine care Pt was seen and care coordinated with Dr Santana. See addendum History of Present Illness Chief Complaint: Abnormal labs: Anemia Primary Care Provider: Saritha Bishop, Patient is 77-year-old PMH anemia of chronic disease, iron deficiency anemia, h/o PUD s/p Billroth 2 and had post op gastroparesis & failed treatment then had gastrectomy in 2010, h/o Breast cancer s/p surgery and chemo, CKD III, CLEMENTINA, depression, hypothyroidism, spinal stenosis, RLS, GERD, myasthenia gravis, presented to ER for significant anemia found on recent labs. History obtained fr om patient as well as outpatient and inpatient chart review. Recent hospitalization 06/22/2023-06/23/2023 for acute blood loss anemia. During that admission patient had EGD with normal esophagus, patent Billroth II gastrojejunostomy was found characterized by healthy-appearing mucosa, normal examined jejunum. Patient was given 2 units PRBCs with improvement of Hgb from 6.8 to 8.7. It was suggested she have colonoscopy however patient wished to have outpatient colonoscopy. She states had one IV iron infusion and was to be scheduled for further outpatient IV iron. Outpatient Hgb of 6.4 on 07/05/2023. It was recommended by GI to go to ER. Patient states stools have been really dark brown but not black and tarry like 2 weeks ago. States past 2 days has noticed some SOB with exertion and lightheadedness with standing. Denies CP, SOB at rest. Still with chronic back pain and spinal stimulator placement surgery by Dr Cuba is currently on hold. Prior history acute anemia in 06/2022 and had two EGDs and colonoscopies that were unremarkable at that time as well as video capsule study 08/10/22 without small bowel bleeding seen. Denies fever/chills, diaphoresis, N/V/D/C, worsening LEARY from her baseline, syncope, new vision changes, neck pain, palpitations, cough, sore throat, rhinorrhea, abdominal pain, paresthesias, extremity weakness, extremity edema, rashes, urinary symptoms. Allergies Allergy/AdvReac Type Severity Reaction Status Date / Time Sulfa (Sulfonamide Allergy Intermediate HIVES Verified 07/06/23 14:54 Antibiotics) metoclopramide AdvReac Intermediate depression Verified 07/06/23 14:54 Home Medications Medication Instructions Recorded Confirmed Type fluticasone propionate 50 2 spray intranasal QAM 10/15/18 07/06/23 History mcg/actuation nasal spray,suspension levothyroxine 50 mcg tablet 0 mcg PO DAILY 10/15/18 07/06/23 History trazodone 50 mg tablet 75 mg PO HS 10/15/18 07/06/23 History ropinirole 4 mg tablet,extended 4 mg PO HS 06/17/20 07/06/23 History release 24 hr Wheelchair (Manual) #1 ea 01/01/21 06/22/23 Rx multivitamin 1 tab PO QAM 02/11/22 07/06/23 History magnesium malate, chelate 1,000 mg PO DAILY 07/09/22 07/06/23 History [id number]-[id number]-[id number] 5 mg-zeaxanth 1 cap PO DAILY 07/09/22 07/06/23 History 1 mg-bilberry 7.5 mg-herbal capsule ([employer] Formula) tramadol 50 mg tablet 50 mg PO Q6H PRN Severe Pain 07/09/22 07/06/23 History (Scale Score 7-10) pantoprazole 40 mg tablet,delayed 40 mg PO QAM #30 tabs 07/12/22 07/06/23 Rx release amoxicillin 500 mg tablet 2,000 mg PO DIRECTED PRN PRIOR 07/20/22 07/06/23 History TO PROCEDURE omega-3 fatty acids 1,000 mg 1,000 mg PO DAILY 07/20/22 07/06/23 History capsule lifitegrast 5 % eye drops in a 1 drp ophthalmic (eye) BID 06/14/23 07/06/23 History dropperette (Xiidra) prednisone 20 mg tablet 20 mg PO QAM 06/14/23 07/06/23 History prazosin 1 mg capsule 1 mg PO Q OTHER DAY 06/22/23 07/06/23 History amlodipine 2.5 mg tablet 2.5 mg PO DAILY 07/06/23 07/06/23 History empagliflozin 10 mg tablet 10 mg PO QAM 07/06/23 07/06/23 History (Jardiance) misoprostol 200 mcg tablet 200 mcg PO QID 07/06/23 07/06/23 History Past Med/Surg History Medical History GERD (gastroesophageal reflux disease) controlled Myasthenia gravis on prednisone daily follows with [facility] neuro Diabetes mellitus, type II HTN (hypertension) History of COVID-12 JUNE 2020 (HOSPITALIZED AT [facility])- denies current issues April 2022- symptoms resolved Polycystic ovarian disease no issues currently Spinal stenosis Hx of gastric ulcer RESULTING IN GASTRECTOMY (2012) Lyme disease x2 hx- treated (no current issues) anaplasmosis - 2019- treated (no current issues) History of TMJ disorder stable - mostly pain when flared up - no locking Macular degeneration History of depression Hx of migraines HX: breast cancer 1993- lumpectomy and chemo Hx of sleep apnea Was on BiPAP in the past- no issues since 2007 (was re-tested) CKD (chronic kidney disease), stage III stable Anemia due to chronic kidney disease pt states has issues w/ anemia Jun 2022- admitted to [facility] (black tarry stools)- was transfused RLS (restless legs syndrome) Chronic sinusitis stable Hypothyroidism Surgical History S/P [facility] History of ankle surgery LEFT (12/28/20) History of esophagogastroduodenoscopy (EGD) History of colonoscopy Hx of lumpectomy LEFT H/O bone marrow transplant 1993 History of tonsillectomy and adenoidectomy History of total right hip replacement History of cataract surgery RT/LEFT H/O oophorectomy History of appendectomy H/O sinus surgery History of partial mastectomy of left breast LEFT S/P subtotal gastrectomy D/T GASTRIC ULCERS H/O Billroth II operation Family History Father Atrial fibrillation Other No family history of adverse response to anesthesia Social History Smoking Status: Never smoker Second Hand Exposure: No; Do You Dip or Chew Tobacco: No; Hx Alcohol Use: No Hx Substance Use: No Preferred Language: Korean Communication Ability: Effective Column Precaster Required: No Beliefs That Will Affect Care: None marital status: / marital status details: within last 8-9 mo Current Living Situation: Alone Feels Safe at Home: Yes Safety Concerns: Feels Safe At This Time Assistive Devices: None Review of Systems Review of Systems: All systems reviewed & are unremarkable except as noted in HPI & below Physical Exam Physical Exam: General: no acute distress, WDWN Head: normocephalic, atraumatic Eyes: PERRL, EOM's intact, conjunctiva pale, anicteric ENT: normal inspection external ears, nose, mucous membranes moist Neck: supple, trachea midline Lungs: clear, no respiratory distress, no wheezing/rhonchi/rales CV: RRR, no pretibial edema Abd: normal BS, soft, non-tender Ext: no cyanosis, no calf tenderness Neuro: A&O x 3, no focal deficits noted, normal affect Skin: warm, dry, pale Results & Data Results & Data Vital Signs (Past 12 Hours) Vital Signs Temp Pulse Pulse Resp BP BP Pulse Ox 07/06/23 13:11 109 H 07/06/23 12:54 102 H 18 98 07/06/23 12:54 101 H 18 119/75 98 07/06/23 11:39 36.6 C 101 H 18 163/63 H 100 O2 Del Method 07/06/23 13:11 07/06/23 12:54 07/06/23 12:54 07/06/23 11:39 Room Air Laboratory Results Short CBC 07/06/23 Range/Units 11:50 WBC 10.47 (4.8-10.8) K/ul Hgb 6.8 L* (12.0-16.0) g/dl Hct 22.4 L (37.0-47.0) % Plt Count 312 (130-400) K/uL BMP 07/06/23 11:50 Sodium 140 Potassium 3.9 Chloride 108 H Carbon Dioxide 27 BUN 30 H Creatinine 1.24 H Glucose 187 H Calcium 8.1 L Liver Function 07/06/23 Range/Units 11:50 Total Bilirubin 0.3 (0.2-1.0) mg/dl AST 19 (13-39) U/L ALT 22 (7-52) U/L Alkaline Phosphatase 48 (34-104) U/L Albumin 3.1 L (3.4-5.0) gm/dl ECG Additional Comments: sinus rhythm, rate 94, no acute ST elevation per my interpretation Supervising Physician Co-Signing Physician Notes Attending addendum: The patient was seen and examined in medical telemetry unit She has been complaining of black tarry stool for about 1 week or so Denies any use of NSAIDs Denies any abdominal pain nausea and or vomiting Noted to have hemoglobin less than 7 On examination Lying in bed comfortably Pale looking and anxious Hemodynamically stable Chest-clear to auscultate bilaterally Heart-S1, Q2nzxmbwm Abdomen-benign, nontender, bowel sound present Extremities-trace edema bilaterally 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
[2023-07-06 14:15] LABS: INR 0.9 (0.9-1.1); Partial Thromboplastin Ratio 0.7; Partial Thromboplastin Time 20 Seconds (21-31)
[2023-07-06] MEDS ORDERED: ONDANSETRON INJ 2 MG/ML 2 ML VIAL IV PRN (14:21)
[2023-07-06] MEDS ORDERED: POLYETHYLENE (MIRALAX) 17 GM PACK PO PRN (14:21)
[2023-07-06] MEDS ORDERED: ACETAMINOPHEN 325 MG TAB PO PRN (14:21)
[2023-07-06] MEDS ORDERED: GLUCOSE 10 TAB/TUBE PO PRN (15:42)
[2023-07-06] MEDS ORDERED: GLUCAGON FOR INJ 1 MG VIAL SQ PRN (15:42)
[2023-07-06] MEDS ORDERED: GLUCOSE 40% GEL 15 GM TUBE PO PRN (15:42)
[2023-07-06] MEDS ORDERED: CARBOHYDRATES FOR HYPOGLYCEMIA PO PRN (15:42)
[2023-07-06] MEDS ORDERED: DEXTROSE 50% 50 ML SYRINGE IV PRN (15:42)
[2023-07-06] MEDS: traMADol HCL 50 MG TABLET PO PRN ×2 (16:30→22:34)
[2023-07-06] MEDS: PANTOprazole 40 MG in DEXTROSE 5% MINI-B 100 ML IV SCH ×2 (16:30→21:23)
--- NOTE | 2023-07-06 18:13 | Emergency Department Note ---
History of Present Illness General Chief complaint: GI Bleed Stated complaint: INTERNAL BLEEDING Time Seen by Provider: 07/06/23 12:29 History of Present Illness Provider Complaint: + melena Onset (ago): 2 day(s) Pain Consistency: + constant Severity: similar to previous episodes Maximum Pain Intensity: 7 Context: + history of GI bleed; no liver disease, no hemorrhoids, no swallowed FB, no known esophageal varices, no unusual food or no anticoagulant use Associated symptoms: no abdominal pain, no nausea, no vomiting, no epistaxis, no fever, no chills, no headaches or no shortness of breath Home Medications Medication Instructions Recorded Confirmed Type fluticasone propionate 50 2 spray intranasal QAM 10/15/18 07/06/23 History mcg/actuation nasal spray,suspension levothyroxine 50 mcg tablet 0 mcg PO DAILY 10/15/18 07/06/23 History trazodone 50 mg tablet 75 mg PO HS 10/15/18 07/06/23 History ropinirole 4 mg tablet,extended 4 mg PO HS 06/17/20 07/06/23 History release 24 hr Wheelchair (Manual) #1 ea 01/01/21 06/22/23 Rx multivitamin 1 tab PO QAM 02/11/22 07/06/23 History magnesium malate, chelate 1,000 mg PO DAILY 07/09/22 07/06/23 History wcppoync-utf-qvomtq 5 mg-zeaxanth 1 cap PO DAILY 07/09/22 07/06/23 History 1 mg-bilberry 7.5 mg-herbal capsule ([employer] Formula) tramadol 50 mg tablet 50 mg PO Q6H PRN Severe Pain 07/09/22 07/06/23 History (Scale Score 7-10) pantoprazole 40 mg tablet,delayed 40 mg PO QAM #30 tabs 07/12/22 07/06/23 Rx release amoxicillin 500 mg tablet 2,000 mg PO DIRECTED PRN PRIOR 07/20/22 07/06/23 History TO PROCEDURE omega-3 fatty acids 1,000 mg 1,000 mg PO DAILY 07/20/22 07/06/23 History capsule lifitegrast 5 % eye drops in a 1 drp ophthalmic (eye) BID 06/14/23 07/06/23 History dropperette (Xiidra) prednisone 20 mg tablet 20 mg PO QAM 06/14/23 07/06/23 History prazosin 1 mg capsule 1 mg PO Q OTHER DAY 06/22/23 07/06/23 History amlodipine 2.5 mg tablet 2.5 mg PO DAILY 07/06/23 07/06/23 History empagliflozin 10 mg tablet 10 mg PO QAM 07/06/23 07/06/23 History (Jardiance) misoprostol 200 mcg tablet 200 mcg PO QID 07/06/23 07/06/23 History Allergies Allergy/AdvReac Type Severity Reaction Status Date / Time Sulfa (Sulfonamide Allergy Intermediate HIVES Verified 07/06/23 14:54 Antibiotics) metoclopramide AdvReac Intermediate depression Verified 07/06/23 14:54 Past Med/Surg History Medical History Myasthenia gravis on prednisone daily follows with [facility] neuro HTN (hypertension) RLS (restless legs syndrome) Hypothyroidism Diabetes mellitus, type II glucose well controlled and stable GERD (gastroesophageal reflux disease) controlled History of COVID-12 JUNE 2020 (HOSPITALIZED AT [facility])- denies current issues April 2022- symptoms resolved Polycystic ovarian disease no issues currently Spinal stenosis Hx of gastric ulcer RESULTING IN GASTRECTOMY (2012) Lyme disease x2 hx- treated (no current issues) anaplasmosis - 2019- treated (no current issues) History of TMJ disorder stable - mostly pain when flared up - no locking Macular degeneration History of depression Hx of migraines HX: breast cancer 1993- lumpectomy and chemo Hx of sleep apnea Was on BiPAP in the past- no issues since 2007 (was re-tested) CKD (chronic kidney disease), stage III stable Anemia due to chronic kidney disease pt states has issues w/ anemia Jun 2022- admitted to [facility] (black tarry stools)- was transfused Chronic sinusitis stable Surgical History S/P spinal surgery 09/2021 lumbar- [facility] History of ankle surgery LEFT (12/28/20) History of esophagogastroduodenoscopy (EGD) History of colonoscopy Hx of lumpectomy LEFT H/O bone marrow transplant 1993 History of tonsillectomy and adenoidectomy History of total right hip replacement History of cataract surgery RT/LEFT H/O oophorectomy History of appendectomy H/O sinus surgery History of partial mastectomy of left breast LEFT S/P subtotal gastrectomy D/T GASTRIC ULCERS H/O Billroth II operation Family History Father Atrial fibrillation Other No family history of adverse response to anesthesia Social History Smoking Status: Never smoker Second Hand Exposure: No; Do You Dip or Chew Tobacco: No; Hx Alcohol Use: No Hx Substance Use: No Preferred Language: Greek Communication Ability: Effective Translation Director Required: No Beliefs That Will Affect Care: None marital status: / marital status details: within last 8-9 mo Current Living Situation: Alone Feels Safe at Home: Yes Safety Concerns: Feels Safe At This Time Assistive Devices: None Physical Exam 2 Vital Signs: Vital Signs - 24 hr 07/06/23 11:39 07/06/23 12:54 07/06/23 12:54 Temperature 36.6 C Temperature Source Skin Pulse Rate 101 H 102 H Pulse Rate [Apical ] 101 H Respiratory Rate 18 18 18 Blood Pressure 163/63 H Blood Pressure [Le ft Arm] 119/75 Blood Pressure Christiana n 96 Blood Pressure Christiana n [Left Arm] 89 Pulse Oximetry 100 98 98 Oxygen Delivery Me thod Room Air Sepsis Recent Feve r Within 48 Hours No Sepsis New/Unexpla ined Change in Men nacho Status No Sepsis Action Take n by Nursing No Action Required 07/06/23 13:11 Temperature Temperature Source Pulse Rate 109 H Pulse Rate [Apical ] Respiratory Rate Blood Pressure Blood Pressure [Le ft Arm] Blood Pressure Christiana n Blood Pressure Christiana n [Left Arm] Pulse Oximetry Oxygen Delivery Me thod Sepsis Recent Feve r Within 48 Hours Sepsis New/Unexpla ined Change in Men nacho Status Sepsis Action Take n by Nursing Physical Exam: Physical Exam GENERAL: She is oriented to person, place, and time. She appears well-developed and well-nourished. She does not appear distressed. HENT: Exam performed. -Head: Normocephalic and atraumatic. -Right Ear: External ear normal. No mastoid erythema -Left Ear: External ear normal. No mastoid erythema -Mouth/Throat: The oropharynx is clear and moist. No trismus in the jaw. No dental abscesses or uvula swelling. No oropharyngeal exudate or tonsillar abscesses. EYES: Conjunctivae and EOM are normal.Right eye exhibits no discharge. Left eye exhibits no discharge. No scleral icterus. NECK: Normal range of motion. Neck supple. No JVD present. No tracheal deviation and normal range of motion present. CV: Normal rate, regular rhythm, normal heart sounds and intact distal pulses. There is no peripheral edema. Palpable radial pulses bue. PULM/CHEST: Effort normal and breath sounds normal. No respiratory distress. No stridor. She has no wheezes. She has no rales. -Chest Wall: She exhibits no tenderness. ABD: The abdomen is soft. Bowel sounds are normal. She has no distension. No mass is present. There is no tenderness. There is no rebound, no guarding, no Stevenson's sign and no tenderness at McBurney's point. Rovsig negative Rectal: Performed with female billet recorder nurse and Sallie at bedside. Hemoccult positive. MUSC/SKEL: Normal range of motion. There is no peripheral edema, tenderness or deformity. NEURO: Motor and sensation grossly intact. SKIN: Skin is warm and dry. She is not diaphoretic. PSYCH: She has a normal mood and affect. Behavior is normal. Judgment and thought content normal. Course Course 1229: The patient was evaluated in room C9. A complete history and physical exam was performed Administered Medications Pantoprazole Sodium 40 mg/ (Dextrose) 100 mls @ 20 mls/hr IV Q5H [facility] Stop: 08/05/23 19:29 Last Admin: 07/06/23 16:30 Dose: 8 mg/hr, 20 mls/hr Documented By: KIRILL Tramadol HCl (Tramadol Hcl 50 Mg Tablet) 50 mg PO Q6H PRN PRN Reason: Severe Pain (Scale Score 7-10) Stop: 08/05/23 15:38 Last Admin: 07/06/23 16:30 Dose: 50 mg Documented By: KIRILL Discontinued Medications Pantoprazole Sodium 80 mg/ (Dextrose) 120 mls @ 400 mls/hr IV NOW ONE Stop: 07/06/23 13:27 Last Infusion: 07/06/23 16:58 Dose: Infused Documented By: Admin: 07/06/23 14:58 Dose: 400 mls/hr Documented By: JERZY Pantoprazole Sodium 40 mg/ (Dextrose) 100 mls @ 20 mls/hr IV Q5H MARTHA Stop: 08/05/23 13:29 Last Infusion: 07/06/23 17:00 Dose: 0 mg/hr, 0 mls/hr Documented By: Admin: 07/06/23 14:39 Dose: 8 mg/hr, 20 mls/hr Documented By: JERZY Miscellaneous (Ropinirole 4mg Er--Order Awaiting Action) 1 each N/A QS MARTHA Stop: 08/05/23 15:59 Last Admin: 07/06/23 16:33 Dose: Not Given Documented By: KIRILL Pantoprazole Sodium (Pantoprazole Bolus/Drip) 1 each IV NOW STA Stop: 07/06/23 13:11 Last Admin: 07/06/23 14:59 Dose: Not Given Documented By: JERZY Medical Decision Making Laboratory Data Attestation: I reviewed the patient's lab results. 07/06/23 11:50 07/06/23 11:50 Lab Results 07/06/23 Range/Units 11:50 WBC 10.47 (4.8-10.8) K/ul RBC 2.22 L (4.20-5.40) M/uL Hgb 6.8 L* (12.0-16.0) g/dl Hct 22.4 L (37.0-47.0) % MCV 100.9 H (80.0-100.0) fL MCH 30.6 (25.0-34.0) pg MCHC 30.4 L (32.0-36.0) g/dL RDW Std Deviation 67.9 H (36.4-46.3) fL RDW Coeff of Tatiana 19.5 H (11.5-14.5) % Plt Count 312 (130-400) K/uL MPV 9.5 (9.4-12.4) fL PT 10.1 (9.0-12.0) Seconds INR 0.9 (0.9-1.1) APTT 20 L (21-31) Seconds PTT Ratio 0.7 Sodium 140 (136-145) mmol/L Potassium 3.9 (3.5-5.1) mmol/L Chloride 108 H (98-107) mmol/L Carbon Dioxide 27 (21-32) mmol/L Anion Gap 5 (3-11) BUN 30 H (6-23) mg/dl Creatinine 1.24 H (0.6-1.2) mg/dl Est Cr Clr Drug Dosing 35.6 ml/min Est GFR ( Amer) 48.5 ml/min Est GFR (Non-Af Amer) 41.9 ml/min BUN/Creatinine Ratio 24.2 H (10-20) Glucose 187 H (70-99(Fasting)) mg/dl Calcium 8.1 L (8.6-10.3) mg/dl Total Bilirubin 0.3 (0.2-1.0) mg/dl AST 19 (13-39) U/L ALT 22 (7-52) U/L Alkaline Phosphatase 48 (34-104) U/L Troponin I High Sens 7.2 (0-14) pg/ml Total Protein 4.9 L (6.0-8.3) gm/dl Albumin 3.1 L (3.4-5.0) gm/dl Globulin 1.8 L (2.5-4.0) gm/dl Albumin/Globulin Ratio 1.7 (0.9-2) Blood Type A Positive Antibody Screen NEGATIVE Crossmatch See Detail ECG Data Attestation: I personally reviewed and interpreted this ECG as follows: Rate (beats per minute): 94 Rhythm: normal sinus Findings: no ST depression, no ST elevation or no prolonged QT Additional Comments: QRS 78 MDM Narrative Cardiac monitoring: An order was placed for continuous cardiac monitoring. The monitor shows a rate of 90 with sinus rhythm interpreted by me Patient was seen during a time of extreme volume and extreme acuity in the emergency department. Nursing triage protocols were initiated and labs were drawn by protocol in the triage area. Hemoglobin 6.8. [facility] bolus and drip ordered for the patient. Impression & Plan GI bleed Critical Care Time Critical Care Time: Yes Total Critical Care Time: 61 I have personally spent greater than 61 minutes of critical care time in the direct management of this patient. This includes bedside care, interpretation of diagnostic studies, and testing, discussion with consultants, patient, and family members, and other required patient management activities. This 61 minutes is in excess of all separately billable procedures. Discharge Plan Visit Data Chief Complaint: GI Bleed Stated Complaint: INTERNAL BLEEDING ED Provider: Sinan Peacock Discharge Problem: GI bleed Patient Disposition: Admitted As Inpatient Discharge Instructions Interventions: ED Discharge Assessment Last Done: 07/06/23 14:22 Discharge Problem: GI bleed Qualifiers: GI bleed type/associated pathology: unspecified gastrointestinal hemorrhage type Qualified Code(s): K92.2 - Gastrointestinal hemorrhage, unspecified
[2023-07-06] MEDS: INSULIN ASPART PER UNIT CHARGE SC SCH ×2 (18:23→20:25)
--- NOTE | 2023-07-06 18:33 | Discharge Summary ---
Discharge Summary Date of Service July 06, 2023 delayed entry date of service 06/23/23 Notes For Next Care Provider Medication Changes From Visit per below Admission HPI Per Admitting Provider Patient is 77-year-old PMH anemia of chronic disease, iron deficiency anemia, h/o PUD s/p Billroth 2 and had post op gastroparesis & failed treatment then had gastrectomy in 2010, h/o Breast cancer s/p surgery and chemo, CKD III, CLEMENTINA, depression, hypothyroidism, spinal stenosis, RLS, GERD, myasthenia gravis, presented to ER for significant anemia found on recent labs. History obtained from patient as well as outpatient and inpatient chart review. Recent hospitalization 06/22/2023-06/23/2023 for acute blood loss anemia. During that admission patient had EGD with normal esophagus, patent Billroth II gastrojejunostomy was found characterized by healthy-appearing mucosa, normal examined jejunum. Patient was given 2 units PRBCs with improvement of Hgb from 6.8 to 8.7. It was suggested she have colonoscopy however patient wished to have outpatient colonoscopy. She states had one IV iron infusion and was to be scheduled for further outpatient IV iron. Outpatient Hgb of 6.4 on 07/05/2023. It was recommended by GI to go to ER. Patient states stools have been really dark brown but not black and tarry like 2 weeks ago. States past 2 days has noticed some SOB with exertion and lightheadedness with standing. Denies CP, SOB at rest. Still with chronic back pain and spinal stimulator placement surgery by Dr Cuba is currently on hold. Prior history acute anemia in 06/2022 and had two EGDs and colonoscopies that were unremarkable at that time as well as video capsule study 08/10/22 without small bowel bleeding seen. Denies fever/chills, diaphoresis, N/V/D/C, worsening LEARY from her baseline, syncope, new vision changes, neck pain, palpitations, cough, sore throat, rhinorrhea, abdominal pain, paresthesias, extremity weakness, extremity edema, rashes, urinary symptoms. Admission Exam Per Admitting Provider General: no acute distress, WDWN Head: normocephalic, atraumatic Eyes: conjunctiva non-injected, anicteric ENT: normal inspection external ears, nose, mucous membranes moist Neck: supple, trachea midline Lungs: clear, no respiratory distress, no wheezing/rhonchi/rales CV: RRR, no murmur, no pretibial edema Abd: normal BS, soft, non-tender Ext: no cyanosis, no calf tenderness Neuro: A&O x 3, no focal deficits noted, normal affect Skin: +pale, warm, dry Principal Dx & Hospital Course #1 = Principal Diagnosis (1) Symptomatic anemia: (2) GI bleed: (3) H/O Billroth II operation: (4) S/P subtotal gastrectomy: Patient is 77-year-old PMH anemia of chronic disease, iron deficiency anemia, h/o PUD s/p Billroth 2 and had post op gastroparesis & failed treatment then had gastrectomy in 2010, h/o Breast cancer s/p surgery and chemo, CKD III, CLEMENTINA, depression, hypothyroidism, spinal stenosis, RLS, GERD, myasthenia gravis, presented to ER for significant anemia found on recent outpatient labs with Hgb of 6.4 on 07/05/2023. Reports dark color stools. 06/22/23 s/p 2 units PRBCs. 06/23/23 Hgb: 8.7. 06/23/23 EGD: normal esophagus, patent Billroth II gastrojejunostomy was found characterized by healthy-appearing mucosa, normal examined jejunum. Patient was given 2 units PRBCs with improvement of Hgb from 6.8 to 8.7. 06/24/23 IV iron Today in ER Hgb: 6.8 Possible GI bleed Reported heme+stools in ER In ER given PPI bolus and drip Continue IV PPI In ER 1unit PRBC started Repeat H&H after PRBC transfusion and likely will require another unit PRBC NPO midnight GI consult, spoke with [facility] recommends clear liquid diet and NPO midnight for possible scope tomorrow CBC, BMP in am (5) CKD (chronic kidney disease), stage III: Cr: 1.2. Baseline Cr: 1.1-1.2 Monitor renal functions, avoid nephrotoxic agents when possible (6) Diabetes mellitus, type II: A1c: 7.4 on 06/21/2023 Hold home Jardiance NovoLog sliding scale per protocol. Will be n.p.o. tonight so may need to further adjust tomorrow (7) HTN (hypertension): Continue amlodipine (8) Myasthenia gravis: Possible myasthenia gravis. Currently following with neuro for workup Is on prednisone daily Continue prednisone (9) Hypothyroidism: Continue levothyroxine (10) RLS (restless legs syndrome): Continue ropinirole (11) HX: breast cancer: S/P surgery, chemo History bone marrow transplant Discharge Exam General- oriented x 3, not in distress, speaks in sentences with no effort or accessory muscle use Eyes- anicteric Neck- no JVD Lungs- clear breath sounds bilaterally, no rales/wheezes Heart- normal rate, regular rhythm; no murmurs Abdomen- normal bowel sounds, nondistended, soft, no tenderness Extremities- no pretibial edema, no calf tenderness Neuro- alert, oriented x 3; no gross focal neurologic deficits Skin- warm & dry Updated Medication List Medication Instructions Recorded Confirmed Type fluticasone propionate 50 2 spray intranasal QAM 10/15/18 07/06/23 History mcg/actuation nasal spray,suspension levothyroxine 50 mcg tablet 0 mcg PO DAILY 10/15/18 07/06/23 History trazodone 50 mg tablet 75 mg PO HS 10/15/18 07/06/23 History ropinirole 4 mg tablet,extended 4 mg PO HS 06/17/20 07/06/23 History release 24 hr Wheelchair (Manual) #1 ea 01/01/21 06/22/23 Rx multivitamin 1 tab PO QAM 02/11/22 07/06/23 History magnesium malate, chelate 1,000 mg PO DAILY 07/09/22 07/06/23 History obivpirb-qlg-kgpmlv 5 mg-zeaxanth 1 cap PO DAILY 07/09/22 07/06/23 History 1 mg-bilberry 7.5 mg-herbal capsule ([employer] Formula) tramadol 50 mg tablet 50 mg PO Q6H PRN Severe Pain 07/09/22 07/06/23 History (Scale Score 7-10) pantoprazole 40 mg tablet,delayed 40 mg PO QAM #30 tabs 07/12/22 07/06/23 Rx release amoxicillin 500 mg tablet 2,000 mg PO DIRECTED PRN PRIOR 07/20/22 07/06/23 History TO PROCEDURE omega-3 fatty acids 1,000 mg 1,000 mg PO DAILY 07/20/22 07/06/23 History capsule lifitegrast 5 % eye drops in a 1 drp ophthalmic (eye) BID 06/14/23 07/06/23 History dropperette (Xiidra) prednisone 20 mg tablet 20 mg PO QAM 06/14/23 07/06/23 History prazosin 1 mg capsule 1 mg PO Q OTHER DAY 06/22/23 07/06/23 History amlodipine 2.5 mg tablet 2.5 mg PO DAILY 07/06/23 07/06/23 History empagliflozin 10 mg tablet 10 mg PO QAM 07/06/23 07/06/23 History (Jardiance) misoprostol 200 mcg tablet 200 mcg PO QID 07/06/23 07/06/23 History Hospital Stay Data Consultations 07/06/23 13:10 ED Decision to Admit Stat 07/06/23 14:21 Consult Gastroenterology Routine Procedures Performed per assessment and plan Diagnostic Imagining Performed Laboratory Results WBC 10.47 K/ul (4.8-10.8) 07/06/23 11:50 RBC 2.22 M/uL (4.20-5.40) L 07/06/23 11:50 Hgb 6.8 g/dl (12.0-16.0) L* 07/06/23 11:50 Hct 22.4 % (37.0-47.0) L 07/06/23 11:50 MCV 100.9 fL (80.0-100.0) H 07/06/23 11:50 MCH 30.6 pg (25.0-34.0) 07/06/23 11:50 MCHC 30.4 g/dL (32.0-36.0) L 07/06/23 11:50 RDW Std Deviation 67.9 fL (36.4-46.3) H 07/06/23 11:50 RDW Coeff of Tatiana 19.5 % (11.5-14.5) H 07/06/23 11:50 Plt Count 312 K/uL (130-400) 07/06/23 11:50 MPV 9.5 fL (9.4-12.4) 07/06/23 11:50 PT 10.1 Seconds (9.0-12.0) 07/06/23 11:50 INR 0.9 (0.9-1.1) 07/06/23 11:50 APTT 20 Seconds (21-31) L 07/06/23 11:50 PTT Ratio 0.7 07/06/23 11:50 Sodium 140 mmol/L (136-145) 07/06/23 11:50 Potassium 3.9 mmol/L (3.5-5.1) 07/06/23 11:50 Chloride 108 mmol/L (98-107) H 07/06/23 11:50 Carbon Dioxide 27 mmol/L (21-32) 07/06/23 11:50 Anion Gap 5 (3-11) 07/06/23 11:50 BUN 30 mg/dl (6-23) H 07/06/23 11:50 Creatinine 1.24 mg/dl (0.6-1.2) H 07/06/23 11:50 Est Cr Clr Drug Dosing 35.6 ml/min 07/06/23 11:50 Est GFR ( Amer) 48.5 ml/min 07/06/23 11:50 Est GFR (Non-Af Amer) 41.9 ml/min 07/06/23 11:50 BUN/Creatinine Ratio 24.2 (10-20) H 07/06/23 11:50 Glucose 187 mg/dl (70-99(Fasting)) H 07/06/23 11:50 POC Glucose 222 mg/dl (70-99) H 07/06/23 17:18 Calcium 8.1 mg/dl (8.6-10.3) L 07/06/23 11:50 Total Bilirubin 0.3 mg/dl (0.2-1.0) 07/06/23 11:50 AST 19 U/L (13-39) 07/06/23 11:50 ALT 22 U/L (7-52) 07/06/23 11:50 Alkaline Phosphatase 48 U/L (34-104) 07/06/23 11:50 Troponin I High Sens 7.2 pg/ml (0-14) 07/06/23 11:50 Total Protein 4.9 gm/dl (6.0-8.3) L 07/06/23 11:50 Albumin 3.1 gm/dl (3.4-5.0) L 07/06/23 11:50 Globulin 1.8 gm/dl (2.5-4.0) L 07/06/23 11:50 Albumin/Globulin Ratio 1.7 (0.9-2) 07/06/23 11:50 Blood Type A Positive 07/06/23 11:50 Antibody Screen NEGATIVE 07/06/23 11:50 Crossmatch See Detail 07/06/23 11:50 Total Time Total Time Spent Total Time Spent (In Minutes): >30 minutes
[2023-07-06 18:38] LABS: Hematocrit (blood only) 23.6 % (37.0-47.0); Hemoglobin 7.1 g/dl (12.0-16.0)
[2023-07-06] MEDS ORDERED: ARTIFICIAL TEARS OP PRN (21:00)
--- OUTSIDE RECORDS SUMMARY | 2023-07-06 21:13 | External Medical Summary | Summary of Care ---
Author Name Unknown Organization [facility] Address [address] [place] [facility] [place] [address] Phone [phone] Care Team Providers Care Dough Maker Name Role Phone Dario Saritha Price DO Primary Care Provider Reason for Visit * Reason Onset Date Comments Other 07/01/2023 Encounter Details Date Type Department Care Team (Late st Contact Info) Description 07/01/2023 Telephone Gastroenterology, [facility] [address] [place] [id number] Yuki Horton MD [address] [place] [id number] Other Allergies Active Allergy Reactions Criticality Noted Date Comments Metformin 07/29/2022 Muscle Cramping Metoclopramide Hcl 01/15/2008 Mental changes Sulfa Antibiotics 05/18/2001 hives, welts all over body documented as of this encounter (statuses as of 07/06/2023) Medications Medication Sig Dispensed Refills Start Date End Date Status EXCEDRIN EXTRA STRENGTH 250-250-65 MG PO TABS take 1-2 tablets by mouth as needed 0 12/14/2012 Active Nutritional Supplements (ENSURE) Take by mouth 2 times a day. 0 Active Multiple Vitamin (MULTI-DAY) TabletIndications: senior vitamin Take 1 Tab by mouth daily. Indications: senior vitamin 0 Active Magnesium Malate 1250 (141.7 Mg) MG Oral Tablet Take 800 mg by mouth daily. 0 09/04/2020 Active Ronco-3 1000 MG Oral Capsule Take by mouth. 0 Active Clobetasol Propionate 0.05 % External Ointment (Temovate)Indicati ons:Lichen sclerosus of female genitalia Apply to vulva nightly x2 weeks, then 2x/week 30 g 6 12/09/2021 Active Fluticasone Propionate 50 MCG/ACT Nasal Suspension (Flonase)Indicatio ns:Nasal sinus polyp ADMINISTER 2 SPRAYS INTO EACH NOSTRIL DAILY 48 g 1 01/08/2023 4 Active Prazosin HCl 1 MG Oral Capsule (Minipress) TAKE ONE CAPSULE BY MOUTH EVERY DAY BEFORE BEDTIME 90 Capsule 3 12/23/2022 4 Active Additional Information Patient taking differently: Every other day, Reported on 06/30/2023 Pantoprazole Sodium 40 MG Oral Tablet Delayed Release (Protonix) TAKE ONE TABLET BY MOUTH EVERY MORNING 90 Tablet 2 12/06/2022 4 Active miSOPROStol 200 MCG Oral Tablet (Cytotec) Take 1 Tablet by mouth in the morning and 1 Tablet at noon and 1 Tablet in the evening and 1 Tablet before bedtime. 90 Tablet 3 02/23/2023 Active rOPINIRole HCl ER 4 MG Oral Tablet Extended Release 24 Hour (Requip XL) TAKE ONE TABLET BY MOUTH EVERY DAY 90 Tablet 3 05/09/2023 4 Active predniSONE 20 MG Oral Tablet (Deltasone) Take 1 Tablet by mouth in the morning. 30 Tablet 2 05/16/2023 Active glipiZIDE ER 2.5 MG Oral Tablet Extended Release 24 Hour (glipiZIDE XL)Indications:Typ e 2 diabetes mellitus with diabetic mononeuropathy, without long-term current use of insulin (HCC) Take 1 Tablet by mouth in the morning 30 minutes before a meal. 90 Tablet 3 05/23/2023 Active traZODone HCl 50 MG Oral Tablet (Desyrel) TAKE ONE AND ONE-HALF TABLETS BY MOUTH AT BEDTIME 135 Tablet 3 05/26/2023 Active traMADol HCl 50 MG Oral Tablet (Ultram)Indication s:Lumbar back pain with radiculopathy affecting left lower extremity TAKE ONE TABLET BY MOUTH EVERY EIGHT HOURS NEEDED FOR SEVERE PAIN 150 Tablet 0 06/15/2023 4 Active Cyanocobalamin 1000 MCG/ML Injection Solution (Cyanocobalamin)In dications:Other iron deficiency anemia Give 1000mcg IM once a week x3, then monthly thereafter 4 mL 0 06/23/2023 Active Xiidra 5 % Ophthalmic Solution 0 06/05/2023 Active amLODIPine Besylate 2.5 MG Oral Tablet (Norvasc) Take 1 Tablet by mouth in the morning. 90 Tablet 3 06/30/2023 Active Empagliflozin 10 MG Oral Tablet (Jardiance) Take 1 Tablet by mouth in the morning. 30 Tablet 11 06/30/2023 Active Levothyroxine Sodium 50 MCG Oral Tablet (Levoxyl)Indicatio ns:Hypothyroidism TAKE ONE HALF TABLET BY MOUTH DAILY. EXCEPT TAKE ONE TABLET ON THURSDAYS AND SUNDAYS 100 Tablet 1 03/03/2023 3 Discontinue d(Refill) documented as of this encounter (statuses as of 07/06/2023) Active Problems Problem Noted Date Diagnosed Date B12 deficiency 06/23/2023 Other iron deficiency anemias 06/22/2023 Hypertensive kidney disease with stage 3b chronic kidney disease 06/07/2023 Atrial fibrillation 11/05/2022 Essential (primary) hypertension [...] signed 11/23/2018 RLS (restless legs syndrome) 03/23/2018 History of kidney stones 05/25/2017 Moderate episode of recurrent major depressive d isorder 12/21/2016 Anemia due to vitamin B12 deficiency 06/11/2015 Iron deficiency anemia 07/19/2014 Lichen sclerosus of female genitalia 02/04/2014 Depression with anxiety 01/01/2008 Personal history of malignant neoplasm of breast 10/04/2003 Overview: Bone Marrow Transplantation CHR MAXILLARY SINUSITIS documented as of this encounter (statuses as of 07/06/2023) Resolved Problems Problem Noted Date Diagnosed Date Resolved Date Stage 3 chronic kidney disease 08/03/2022 09/08/2022 Sleep apnea 04/08/2020 11/05/2022 Protein-calorie malnutrition 01/05/2019 10/12/2021 Calcium nephrolithiasis 05/31/201707/2022 Kidney disease, chronic, sta ge III (GFR [...] chronic kidney disease 11/08/2009 06/05/2020 Follow-up examination, follo wing other surgery 10/26/2009 09/05/2017 Acute gastrojejunal [...] as of this encounter (statuses as of 07/06/2023) Immunizations Name Administration Dates Next Due COVID-19 mRNA, LNP-s, No Pre serve, 2-Dose Series (Pfizer) 05/18/2021,10/04/2020,09/06/2020 Pneumococcal Conjugate Vacc, 13 Valent (Prevnar) 11/19/2016 Pneumococcal Polysaccharide PPV23 (Pneumovax) 04/09/2019,10/25/2009 Season Influenza, Cell Cultu re, 18+ Yrs, With Preserv (Flucelvax) 05/30/2013 Season Influenza, Quad, PF, Adjuvanted, 65+ Yrs, IM (FLUAD) 04/08/2020 Seasonal Influenza, PF, 6 M & above, IM , (FluLaval or Fluzone) 05/09/2019,06/02/2018,04/18/2017 Seasonal Influenza, Quadriva lent Hd (Fluzone Hd) [...] encounter Miscellaneous Notes * Telephone Encounter - Myriam Underwood OSA - 07/04/2023 11:52 AM EST Spoke to patient, scheduled venofer 07/11/23 @ 11:00 am. * Telephone Encounter - Concepcion Zavaleta RN - 07/04/2023 8:25 AM EST Will await consent to be scanned before scheduling VCE * Telephone Encounter - Concepcion Zavaleta RN - 07/04/2023 8:25 AM EST Images from the original note were not included. Patient identified by name and date of . Did witness phone consent with Dr Horton. Also reviewed VCE procedure with her in depth. Symptoms: melena, iron deficiency anemia, decrease in hemoglobin Bowel Movement Frequency:varies Bowel Movement Consistency: varies Straining: no Rectal Pain: no Blood in Stool: No Blood in Vomit: no Cardiac Pacemaker? no Pain stimulator or internal devices?no BMI >43? no Hx of EGD: yes 06/23/2023 Hx of Colonoscopy: yes- 07/22/2022 Hx of UGI Series: no Hx of Bowel Obstruction: no WILL NEED TO HAVE PT SIGN CONSENT WITH PROVIDER AND PROVIDER WILL NEED TO PLACE ORDER SO THAT IT CAN BE AUTHORIZED. WE WILL THEN CONTACT THE PT FOR SCHEDULING. Phone consent with Dr Horton on 07/01/2023 Ht: 65 inches Wt 138lbs Icd codes: d50.0 iron deficiency anemia. Hx of melena * Telephone Encounter - Kelsea Bai RN - 07/04/2023 8:22 AM EST [place] is signed. Scheduling: please call patient to schedule 2 hour appt "200mg venofer 07/28" (Dr Yuki Horton). Thanks! Patient will need 200mg venofer once a week x4. * Telephone Encounter - Kelsea Bai RN - 07/01/2023 4:39 PM EST [place] plan built and routed for signature. Prior auth not needed for venofer. Can schedule once beacon plan is signed. * Telephone Encounter - Concepcion Zavaleta RN - 07/01/2023 4:27 PM EST [facility] are you able to help arrange venofer infusions? Pt is agreeable to SP location. * Telephone Encounter - Concepcion Zavaleta RN - 07/01/2023 4:16 PM EST ----- Message from Yuki Horton MD sent at 07/01/2023 3:19 PM EST ----- Nurses - can this pt be set up for capsule endoscopy? Also, please arrange IV iron x 4 -- I enteredsupportive care plan. Cecilia and Dr. Horton did Telephone consent for the VCE. Cecilia will document and send consent to scanning. DX: D50.0 (ICD-10-CM) - Iron deficiency anemia due to chronic blood loss PRECERT REQUIRED: no AUTH # n/a VALID DATES: n/a NUMBER OF VISITS APPROVED: n/a INSURANCE INFO: [facility] Sim[facility]ification: No Authorization is Required. Nursing please reach out next week to schedule VCE documented in this encounter Plan of Treatment Upcoming Encounters Date Type Department Care Team (Late st Contact Info) Description 07/11/2023 11:00 AM EST Hem/Onc Treatment Hematology/Oncology Treatment, [place] [address] [place] [address] Kimmie, Chair 10 Hem Onc Scenery [address] [place] [phone] 08/09/2023 11:00 AM EST Telemedicine Interventional Pain Center, [facility] [address] [place] [address] Dimas Powers DO [address] [place] [phone] 09/23/2023 11:20 AM EST Office Visit Nephrology, [address] [id number] Alex Olivares MD [address] [place] [id number] 09/30/2023 2:00 PM EST Nurse Only Ancillary [facility] [place] [address] [place] [phone] Kimmie, Nurse Annual Wellness [facility] [address] [place] [phone] 11/14/2023 2:00 PM EDT Office Visit Hematology/Oncology [facility] [place] [address] [place] [address] Amauri Gustafson MD [address] [place] [phone] 11/28/2023 3:00 PM EDT Office Visit Family Practice [facility] [place] [address] [place] [address] Saritha Bishop DO [address] [place] [address] 04/19/2024 11:00 AM EDT Imaging Radiology [facility], [place] [address] [place] [address] Scheduled Procedures Name Priority Associated Diagnoses Date/Ti me COLONOSCOPY FLEXIBLE PROXIMAL DIAGNOSTIC Recall Screen for colon cancer Health Maintenance Due Date Last Done Comments Hepatitis B (1 of 3 - Risk 3-dose series) 2005 COVID-19 Vaccine ( - 2022- season) 2023 05/18/2021, 10/04/2020, 09/06/2020 Influenza Vaccine (FLU shot) (#1) 2023 07/12/2022, 05/18/2021, 04/08/2020, Additional history exists Diabetic Foot Exam 07/29/2023 07/29/2022, 10/12/2021 Depression Screening 09/28/2023 09/27/2022 CKD PHOS USE SMARTSET 81700 11/02/202310/23, 10/14/2021, 03/04/2020, Additional history exists TSH 11/02/2023 11/01/2022, 0508/2021, 10/20/2020, Additional history exists Diabetic Eye Exam 11/29/2023 11/28/2022, , 12/10/2020, Additional history exists HbA1c 12/21/2023 06/22/2023, 10/23, 07/27/2022, Additional history exists GFR 12/30/2023 06/30/2023, 04/24, 03/22/2023, Additional history exists Albumin/Creatinine Ratio 05/25/20242 023, 04/26/2022, 10/27/2020, Additional history exists CKD HGB USE SMARTSET 63884 07/05/202407/05, 06/30/2023, 06/24/2023, Additional history exists DTaP,Tdap,and Td Vaccines (4 [...] this encounter Medical Devices Implanted Type Area Tnt Powder Worker Device Identifier Shelf Expiration Date Model / Serial / Lot Lens Intraoc 16.0 - [id number] - [id number] Implanted:Qty: 1 on 11/30/2016 by Kt Molina MD at [facility] Left: Eye [employer] 04/23/2021 [id number] / [id number] / [id number] Lens Intraoc 16.0 - [id number] - [id number] Implanted:Qty: 1 on 12/16/2016 by Kt Molina MD at [facility] Right: Eye [employer] 04/23/2021 [id number] / [id number] / [id number] Vectris 1x8 Compact Trial Screening Implanted:Qty: 1 on 05/19/2023 by Dimas Powers DO at [facility] Right: Back [employer] : NEUROLOGIC PAIN 02/11/2027 [id number] / / [id number] documented as of this encounter Advance Directives Documents on File Type Date Recorded 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 No Full Code 11/07/2009 9:32 PM 11/12/2009 9:58 PM This order reflects the patients wishes and were consensually agreed upon. Question Answer Comments Discussion of Advance Directives occurred with: Not Discussed Care Teams Dough Maker Relationship Specialty Start Date End Date Saritha Bishop DO [facility] [place] [address] PCP - General Family Medicine 05/30/11 documented as of this encounter
--- OUTSIDE RECORDS SUMMARY | 2023-07-06 21:13 | External Medical Summary | Summary of Care ---
Author Name Unknown Organization [facility] Address [address] [facility] [address] Phone [phone] Care Team Providers Care Joist Setter Name Role Phone Saritha Bishop DO Primary Care Provider Reason for Visit * Reason Onset Date Comments Other 07/01/2023 Encounter Details Date Type Department Care Team (Late st Contact Info) Description 07/01/2023 Telephone Gastroenterology, [facility] [address] [employer] [address] [place] [address] Yuki Horton MD [address] [place] [address] Other Allergies Active Allergy Reactions Criticality Noted Date Comments Metformin 07/29/2022 Muscle Cramping Metoclopramide Hcl 01/15/2008 Mental changes Sulfa Antibiotics 05/18/2001 hives, welts all over body documented as of this encounter (statuses as of 07/04/2023) Medications Medication Sig Dispensed Refills Start Date [...] mg by mouth daily. 0 09/04/2020 Active [place]-3 1000 MG Oral Capsule Take by mouth. 0 Active Clobetasol Propionate 0.05 % External Ointment (Temovate)Indicatio [...] BEDTIME 90 Capsule 3 12/23/2022 12/23/2023 Active Additional Information Patient taking differently: Every other day, Reported on 06/30/2023 Pantoprazole Sodium 40 MG Oral Tablet Delayed Release (Protonix) TAKE ONE TABLET BY MOUTH EVERY MORNING 90 Tablet 2 12/06/2022 12/06/2023 Active miSOPROStol 200 MCG Oral Tablet (Cytotec) Take 1 Tablet by mouth in the morning and 1 Tablet at noon and 1 Tablet in the evening and 1 Tablet before bedtime. 90 Tablet 3 02/23/2023 Active Levothyroxine Sodium 50 MCG Oral Tablet (Levoxyl)Indication s:Hypothyroidism TAKE ONE HALF TABLET BY MOUTH DAILY. EXCEPT TAKE ONE TABLET ON THURSDAYS AND SUNDAYS 100 Tablet 1 03/03/2023 Active rOPINIRole HCl ER 4 MG Oral [...] PAIN 150 Tablet 0 06/15/2023 12/15/2023 Active Cyanocobalamin 1000 MCG/ML Injection Solution (Cyanocobalamin)Ind ications:Other iron deficiency anemia Give 1000mcg IM once a week x3, then monthly thereafter 4 mL 0 06/23/2023 Active Xiidra 5 % Ophthalmic Solution 0 06/05/2023 Activ e amLODIPine Besylate 2.5 MG Oral Tablet (Norvasc) Take 1 Tablet by mouth in the morning. 90 Tablet 3 06/30/2023 Active Empagliflozin 10 MG Oral Tablet (Jardiance) Take 1 Tablet by mouth in the morning. 30 Tablet 11 06/30/2023 Active documented as of this encounter (statuses as of 07/04/2023) Active Problems Problem Noted Date Diagnosed Date [...] as of this encounter (statuses as of 07/04/2023) Resolved Problems Problem Noted Date Diagnosed Date [...] chronic kidney disease 11/08/2009 06/05/2020 Follow-up examination, follclaribel wing other surgery 10/26/2009 09/05/2017 Acute gastrojejunal [...] as of this encounter (statuses as of 07/04/2023) Immunizations Name Administration Dates Next Due COVID-19 mRNA, LNP-s, No Pre serve, 2-Dose Series ([employer]) 05/18/2021,10/04/2020,09/06/2020 Pneumococcal Conjugate Vacc, 13 Valent (Prevnar) [...] encounter Miscellaneous Notes * Telephone Encounter - Concepcion Zavaleta RN [...] Bai RN - 07/04/2023 8:22 AM EST [place] is signed. Scheduling: please call patient to schedule 2 hour appt "200mg venofer 07/28" (Dr Yuki Horton). Thanks! Patient will need 200mg venofer once a week x4. * Telephone Encounter - Kelsea Bai RN - 07/01/2023 4:39 PM EST [place] plan built and routed for signature. Prior auth not needed for venofer. Can schedule once beacon plan is signed. * Telephone Encounter - Concepcion Zavaleta RN - 07/01/2023 4:27 PM EST [facility] are you able to help arrange [...] Care Team (Late st Contact Info) Description 08/09/2023 11:00 AM EST Telemedicine Interventional Pain Center, [facility] [address] [place] [address] Dimas Powers DO 132 [facility] [place] [phone] 09/23/2023 11:20 AM EST Office Visit Nephrology, [address] [place] [address] Alex Olivares MD [address] [place] [address] 09/30/2023 2:00 PM EST Nurse Only Ancillary [facility] [address] [place] [address] Kimmie, Nurse Annual Wellness [facility] 200 [facility] [place] [address] 11/14/2023 2:00 PM EDT Office Visit Hematology/Oncology [facility] [place] [address] [place] [address] Amauri Gustafson MD 200 [facility] [place] [address] 11/28/2023 3:00 PM EDT Office Visit Family Practice [facility] [address] [place] [address] Saritha Bishop, DO 200 [facility] [place] [address] 04/19/2024 11:00 AM EDT Imaging Radiology [address], [place] 132 [facility] [place] [address] Scheduled Procedures Name Priority Associated Diagnoses Date/Ti [...] Screening 09/28/2023 09/27/2022 CKD PHOS USE SMARTSET 80598 11/02/202310/23, 10/14/2021, 03/04/2020, Additional history exists TSH 11/02/2023 11/01/2022, 05/0 08/2021, 10/20/2020, Additional history exists Diabetic Eye Exam 11/29/2023 11/28/2022, , 12/10/2020, Additional history exists HbA1c 12/21/2023 06/22/2023, 10/23, 07/27/2022, Additional history exists GFR 12/30/2023 06/30/2023, 04/24, 03/22/2023, Additional history exists Albumin/Creatinine Ratio 05/25/2024 023, 04/26/2022, 10/27/2020, Additional history exists CKD HGB USE SMARTSET 19357 06/30/202406/30, 06/24/2023, 06/24/2023, Additional history exists DTaP,Tdap,and Td Vaccines [...] this encounter Medical Devices Implanted Type Area Pricing/Signage Team Member Device Identifier Shelf Expiration Date Model / Serial / Lot Lens Intraoc 16.0 - [id number] - [id number] Implanted:Qty: 1 on 11/30/2016 by Kt Molina MD at OR [facility] Left: Eye BAUSCH & LOMB 04/23/2021 [id number] / [id number] / [id number] Lens Intraoc 16.0 - [id number] - [id number] Implanted:Qty: 1 on 12/16/2016 by Kt Molina MD at OR [facility] Right: Eye BAUSCH & LOMB 04/23/2021 [id number] / [id number] / [id number] Vectris 1x8 Compact Trial Screening Implanted:Qty: 1 on 05/19/2023 by Dimas Powers DO at OR [facility] Right: Back [employer] : NEUROLOGIC PAIN 02/11/2027 [id number] / / [id number] documented as of this encounter Advance Directives Documents on File Type Date Recorded 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 No Full Code 11/07/2009 9:32 PM 11/12/2009 9:58 PM This order reflects the patients wishes and were consensually agreed upon. Question Answer Comments Discussion of Advance Directives occurred with: Not Discussed Care Teams Joist Setter Relationship Specialty Start Date End Date Saritha Bishop DO [address] [place] [address] PCP - General Family Medicine 05/30/11 documented as of this encounter
--- OUTSIDE RECORDS SUMMARY | 2023-07-06 21:13 | External Medical Summary | Summary of Care ---
Author Name Unknown Organization [facility] Address [address] [facility] [address] Phone [phone] Care Team Providers Care Mooner Name Role Phone Saritha Bishop DO Primary Care Provider Reason for Visit * Reason Onset Date Comments Other 07/01/2023 Encounter Details Date Type Department Care Team (Late st Contact Info) Description 07/01/2023 Telephone Gastroenterology, [facility] [address] [place] [address] Yuki Horton MD [address] [place] [address] Other Allergies Active Allergy Reactions Criticality Noted [...] mg by mouth daily. 0 09/04/2020 Active [place]-3 1000 MG Oral Capsule Take by mouth. [...] mRNA, LNP-s, No Pre serve, 2-Dose Series ([employer]) 05/18/2021,10/04/2020,09/06/2020 Pneumococcal Conjugate Vacc, 13 Valent (Prevnar) [...] Bai RN - 07/04/2023 8:22 AM EST [place] is signed. Scheduling: please call patient to schedule 2 hour appt "200mg venofer 07/28" (Dr Yuki Horton). Thanks! Patient will need 200mg venofer once a week x4. * Telephone Encounter - Kelsea Bai RN - 07/01/2023 4:39 PM EST [place] plan built and routed for signature. Prior auth not needed for venofer. Can schedule once beacon plan is signed. * Telephone Encounter - Concepcion Zavaleta RN - 07/01/2023 4:27 PM EST [facility] are you able to help arrange venofer [...] OF VISITS APPROVED: n/a INSURANCE INFO: [facility] Greg Ndiaye [facility] Simplification: No Authorization is Required. Nursing please reach out next week to schedule VCE documented in this encounter Plan of Treatment Upcoming Encounters Date Type Department Care Team (Late st Contact Info) Description 08/09/2023 11:00 AM EST Telemedicine Interventional Pain Center, [facility] [address] [place] [address] Dimas Powers DO [address] [place] [address] 09/23/2023 11:20 AM EST Office Visit Nephrology, [address] [phone] Alex Olivares MD [address] [place] [address] 09/30/2023 2:00 PM EST Nurse Only Ancillary [facility] [address] [facility] [place] [address] Park, Nurse Annual Wellness [facility] 200 [facility] [place] [address] 11/14/2023 2:00 PM EDT Office Visit Hematology/Oncology [facility] [address] [place] [address] Amauri Gustafson MD 200 [facility] [place] [address] 11/28/2023 3:00 PM EDT Office Visit Family Practice [facility] [address] [place] [address] Saritha Bishop, [facility] [place] [address] 04/19/2024 11:00 AM EDT Imaging Radiology [facility] 1st [facility] [place] [address] [place] [address] Scheduled Procedures Name Priority Associated Diagnoses Date/Ti [...] Screening 09/28/2023 09/27/2022 CKD PHOS USE SMARTSET 88487 11/02/202310/23, 10/14/2021, 03/04/2020, Additional history exists TSH 11/02/2023 11/01/2022, 0508/2021, 10/20/2020, Additional history exists Diabetic Eye Exam 11/29/2023 11/28/2022, , 12/10/2020, Additional history exists HbA1c 12/21/2023 06/22/2023, 10/23, 07/27/2022, Additional history exists GFR 12/30/2023 06/30/2023, 04/24, 03/22/2023, Additional history exists Albumin/Creatinine Ratio 05/25/2024 023, 04/26/2022, 10/27/2020, Additional history exists CKD HGB USE SMARTSET 90992 06/30/202406/30, 06/24/2023, 06/24/2023, Additional history exists DTaP,Tdap,and [...] this encounter Medical Devices Implanted Type Area Oiling Machine Operator Device Identifier Shelf Expiration Date Model / Serial / Lot Lens Intraoc 16.0 - [id number] - [id number] Implanted:Qty: 1 on 11/30/2016 by Kt Molina MD at OR [facility] Left: Eye [employer]USCH [employer] LOMB 04/23/2021 [id number] / [id number] / [id number] Lens Intraoc 16.0 - [id number] - [id number] Implanted:Qty: 1 on 12/16/2016 by Kt Molina MD at OR [facility] Right: Eye BAUSCH & LOMB 04/23/2021 [id number] / [id number] / [id number] Vectris 1x8 Compact Trial Screening Implanted:Qty: 1 on 05/19/2023 by Dimas Powers DO at OR [facility] Right: Back [employer] : NEUROLOGIC PAIN 02/11/2027 [id number] / / [id number] documented as of this encounter Advance Directives Documents on File Type Date Recorded Patient Research Food Technologist Expl anation Advance Directives and Living Will [...] the patient have Health Care Power of Anesthesiology Technologist? No Full Code 11/07/2009 9:32 PM 11/12/2009 9:58 PM This order reflects the patients wishes and were consensually agreed upon. Question Answer Comments Discussion of Advance Directives occurred with: Not Discussed Care Teams Mooner Relationship Specialty Start Date End Date Saritha Bishop DO [address] [place] [address] PCP - General Family Medicine 05/30/11 documented as of this encounter
--- OUTSIDE RECORDS SUMMARY | 2023-07-06 21:13 | External Medical Summary ---
Author Name Unknown Address Unknown Organization K01:[facility] [place] [address] [place] [address] Laboratory Report Ordering Provider Test Date Status GARRY LITTLE 07/05/2023 13:48:29 Final Observation Date Value Abnormality Reference (Units ) Status Hemoglobin 07/05/2023 13:48:29 6.4 Below low normal 12 .0-15.3 (g/dL) Final Performing Location [facility] - [address] [place] [address]
--- OUTSIDE RECORDS SUMMARY | 2023-07-06 21:13 | External Medical Summary | Summary of Care ---
Author Name Unknown Organization [facility] Address [address] [place] [address] Phone [phone] Care Team Providers Care Engine Emission Technician Name Role Phone Saritha Bishop DO Primary Care Provider Reason for Visit * Reason Comments Outpatient Testing Encounter Details Date Type Department Care Team (Late st Contact Info) Description 07/05/2023 1:40 PM EST Laboratory Laboratory, [facility] [address] [place] [address] [facility], Laboratory [address], [place] [phone] Other iron deficiency anemia; Iron deficiency anemia due to chronic blood loss Allergies Active Allergy Reactions Criticality Noted Date Comments Metformin 07/29/2022 Muscle Cramping Metoclopramide Hcl 01/15/2008 Mental changes Sulfa Antibiotics 05/18/2001 hives, welts all over body documented as of this encounter (statuses as of 07/05/2023) Medications Medication Sig Dispensed Refills Start Date [...] mg by mouth daily. 0 09/04/2020 Active [place]-3 1000 MG Oral Capsule Take by mouth. [...] TAKE ONE TABLET ON THURSDAYS AND SUNDAYS 30 Tablet 0 07/04/2023 Active documented as of this encounter (statuses as of 07/05/2023) Active Problems Problem Noted Date Diagnosed Date [...] as of this encounter (statuses as of 07/05/2023) Resolved Problems Problem Noted Date Diagnosed Date [...] as of this encounter (statuses as of 07/05/2023) Immunizations Name Administration Dates Next Due COVID-19 [...] 11:00 AM EST Hem/Onc Treatment Hematology/Oncology Treatment, [place] [address] [place] [address] Kimmie, Chair 10 [facility] [address] [place] [address] 08/09/2023 11:00 AM EST Telemedicine Interventional Pain Center, [facility] [address] [place] [address] Dimas Powers DO [address] [place] [phone] 09/23/2023 11:20 AM EST Office Visit Nephrology, [address] [phone] Alex Olivares MD [address] [place] [phone] 09/30/2023 2:00 PM EST Nurse Only Ancillary [facility] Maia Burks [address] [place] [address] Kimmie, Nurse Annual Wellness [facility] [address] [place] [address] 11/14/2023 2:00 PM EDT Office Visit Hematology/Oncology [facility] Maia Burks [address] [place] [address] Amauri Gustafson MD [address] [place] [address] 11/28/2023 3:00 PM EDT Office Visit Family Practice [facility] [address] [place] [address] Saritha Bishop, [address] [place] [address] 04/19/2024 11:00 AM EDT Imaging Radiology [address] [facility] [place] [address] Pending Results Name Type Priority Associated Diagnoses Date /Time COPPER, SERUM OR PLASMA Lab Routine Other iron deficiency anemia 07/05/2023 1:48 PM EST HGB Lab Routine Iron deficiency anemia due to chronic blood loss 07/05/2023 1:48 PM EST Scheduled Procedures Name Priority Associated [...] Screening 09/28/2023 09/27/2022 CKD PHOS USE SMARTSET 22607 11/02/202310/23, 10/14/2021, 03/04/2020, Additional history exists TSH 11/02/2023 11/01/2022, 05/0 08/2021, 10/20/2020, Additional history exists Diabetic Eye Exam 11/29/2023 11/28/2022, , 12/10/2020, Additional history exists HbA1c 12/21/2023 06/22/2023, 10/23, 07/27/2022, Additional history exists GFR 12/30/2023 06/30/2023, 04/24, 03/22/2023, Additional history exists Albumin/Creatinine Ratio 05/25/2024 023, 04/26/2022, 10/27/2020, Additional history exists CKD HGB USE SMARTSET 74866 06/30/202406/30, 06/24/2023, 06/24/2023, Additional history exists DTaP,Tdap,and Td Vaccines (4 - Td or Tdap) 05/09/2029 05/09/2019, 10/24/2018, 11/29/2008 DXA Scan 05/12/2029 05/12/2022, 07/01/2014, 12/10/2010 Pneumococcal Vaccine: 65+ Years Completed 04/09/2019, 11/19/2016, 10/25/2009 Zoster Vaccines Completed 07/30/2019, 04/24, 04/09/2019, Additional history exists GARDASIL-HPV IMMUNIZATION SERIES Aged Out No longer eligible based on patient's age to complete this topic MENINGOCOCCAL (MENACTRA/MENVEO) Aged Out No longer eligible based on patient's age to complete this topic documented as of this encounter Medical Devices Implanted Type Area Pipe Bowls Paint Trimmer Device Identifier Shelf Expiration Date Model / Serial / Lot Lens Intraoc 16.0 - [id number] - [id number] Implanted:Qty: 1 on 11/30/2016 by Kt Molina MD at OR [facility] Left: Eye BAUSCH [employer] LOMB 04/23/2021 [id number] / [id number] / [id number] Lens Intraoc 16.0 - [id number] - [id number] Implanted:Qty: 1 on 12/16/2016 by Kt Molina MD at OR [facility] Right: Eye BAUSCH & LOMB 04/23/2021 [id number] / [id number] / [id number] Vectris 1x8 Compact Trial Screening Implanted:Qty: 1 on 05/19/2023 by Dimas Powers DO at OR 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 No Full Code 11/07/2009 9:32 PM 11/12/2009 9:58 PM This order reflects the patients wishes and were consensually agreed upon. Question Answer Comments Discussion of Advance Directives occurred with: Not Discussed Care Teams Engine Emission Technician Relationship Specialty Start Date End Date Saritha Bishop DO [address] [place] [address] PCP - General Family Medicine 05/30/11 documented as of this encounter
--- OUTSIDE RECORDS SUMMARY | 2023-07-06 21:13 | External Medical Summary | Summary of Care ---
Author Name Unknown Organization [facility] Address [address] [facility] [address] Phone [phone] Care Team Providers Care Cook House Laborer Name Role Phone Saritha Bishop DO Primary Care Provider Reason for Visit * Reason Onset Date Comments Other 07/01/2023 Encounter Details Date Type Department Care Team (Late st Contact Info) Description 07/01/2023 Telephone Gastroenterology, [facility] [address] [place] [address] Yuki Horton MD [address] [place] [address] Other Allergies Active Allergy Reactions Criticality Noted [...] mg by mouth daily. 0 09/04/2020 Active [place]-3 1000 MG Oral Capsule Take by mouth. [...] mRNA, LNP-s, No Pre serve, 2-Dose Series ([email or web address]) 05/18/2021,10/04/2020,09/06/2020 Pneumococcal Conjugate Vacc, 13 Valent (Prevnar) [...] Miscellaneous Notes * Telephone Encounter - Kelsea aBi RN - 07/01/2023 4:39 PM EST [place] plan built and routed for signature. Prior auth not needed for venofer. Can schedule once beacon plan is signed. * Telephone Encounter - Concepcion Zavaleta RN - 07/01/2023 4:27 PM EST [facility] are you able to help [...] VISITS APPROVED: n/a INSURANCE INFO: [facility] Gold Zelda [facility] Simplification: No Authorization is Required. Nursing please reach out next week to schedule VCE documented in this encounter Plan of Treatment Upcoming Encounters Date Type Department Care Team (Late st Contact Info) Description 08/09/2023 11:00 AM EST Telemedicine Interventional Pain Center, [facility] 132 [facility] [place] [address] Dimas Powers, DO 132 [facility] [place] [address] 09/23/2023 11:20 AM EST Office Visit Nephrology, [address] [address] Alex Olivares MD [address] [place] [address] 09/30/2023 2:00 PM EST Nurse Only Ancillary [facility] [address] [place] [address] [place], Nurse Annual Wellness [facility] 200 [facility] [place] [address] 11/14/2023 2:00 PM EDT Office Visit Hematology/Oncology [facility] [address] [place] [address] Amauri Gustafson MD 200 [facility] [place] [address] 11/28/2023 3:00 PM EDT Office Visit Family Practice [facility] [address] [place] [address] Saritha Bishop, DO 200 [facility] [place] [address] 04/19/2024 11:00 AM EDT Imaging Radiology [facility] 1st [facility] [address] [place] [address] Scheduled Procedures Name Priority Associated Diagnoses Date/Ti me COLONOSCOPY FLEXIBLE PROXIMAL DIAGNOSTIC Recall Screen for colon cancer Health Maintenance Due Date Last Done Comments Hepatitis B (1 of 3 - Risk 3-dose series) 2005 COVID-19 Vaccine (4 - 2023-24 season) 2023 05/18/2021, 10/04/2020, 09/06/2020 Influenza Vaccine (FLU shot) (#1) 2023 07/12/2022, 05/18/2021, 04/08/2020, Additional history exists Diabetic Foot Exam 07/29/2023 07/29/2022, 10/12/2021 Depression Screening 09/28/2023 09/27/2022 CKD PHOS USE SMARTSET 52450 11/02/2023 04, 10/14/2021, 03/04/2020, Additional history exists TSH 11/02/2023 11/01/2022, 08/2021, 10/20/2020, Additional history exists Diabetic Eye Exam 11/29/2023 11/28/2022, , 12/10/2020, Additional history exists HbA1c 12/21/2023 06/22/2023, 10/23, 07/27/2022, Additional history exists GFR 12/30/2023 06/30/2023, 04/24, 03/22/2023, Additional history exists Albumin/Creatinine Ratio 05/25/2024 023, 04/26/2022, 10/27/2020, Additional history exists CKD HGB USE SMARTSET 83576 06/30/202406/30, 06/24/2023, 06/24/2023, Additional history exists DTaP,Tdap,and [...] this encounter Medical Devices Implanted Type Area Retail Field Representative Device Identifier Shelf Expiration Date Model / Serial / Lot Lens Intraoc 16.0 - [id number] - [id number] Implanted:Qty: 1 on 11/30/2016 by Kt Molina MD at OR [facility] Left: Eye BAUSCH [employer] LOMB 04/23/2021 [id number] / [id number] / [id number] Lens Intraoc 16.0 - [id number] - [id number] Implanted:Qty: 1 on 12/16/2016 by Kt Molina MD at OR [facility] Right: Eye BAUSCH & LOMB 04/23/2021 [id number] / [id number] / [id number] Vectris 1x8 Compact Trial Screening Implanted:Qty: 1 on 05/19/2023 by Dimas Powers DO at OR [facility] Right: Back [employer] : NEUROLOGIC PAIN 02/11/2027 [id number] / / [id number] documented as of this encounter Advance Directives Documents on File Type Date Recorded Patient Carbon Lamp Cleaner Expl anation Advance Directives and Living Will [...] the patient have Health Care Power of Track Surfacing Machine Operator? No Full Code 11/07/2009 9:32 PM 11/12/2009 9:58 PM This order reflects the patients wishes and were consensually agreed upon. Question Answer Comments Discussion of Advance Directives occurred with: Not Discussed Care Teams Cook House Laborer Relationship Specialty Start Date End Date Saritha Bishop DO [address] [place] [address] PCP - General Family Medicine 05/30/11 documented as of this encounter
--- OUTSIDE RECORDS SUMMARY | 2023-07-06 21:13 | External Medical Summary | Summary of Care ---
Author Name Unknown Organization [facility] Address [address] [place] [address] Phone [phone] Care Team Providers Care Lawn Service Manager Name Role Phone Saritha Bishop DO Primary Care Provider Reason for Visit * Reason Comments Outpatient Testing Encounter Details Date Type Department Care Team (Late st Contact Info) Description 07/05/2023 1:40 PM EST Laboratory Laboratory, [place] [address] [place] [address] [facility] [address] [place], [place] [id number] Other iron deficiency anemia; Iron deficiency anemia [...] mg by mouth daily. 0 09/04/2020 Active [place]-3 1000 MG Oral Capsule Take by mouth. [...] 11:00 AM EST Hem/Onc Treatment Hematology/Oncology Treatment, [place] [address] [place] [address] Kimmie, Chair 10 Hem Onc [facility] [address] [place] [address] 08/09/2023 11:00 AM EST Telemedicine Interventional Pain Center, [facility] [address] [place] [address] Dimas Powers DO [address] [place] [phone] 09/23/2023 11:20 AM EST Office Visit Nephrology, [address] [phone] Alex Olivares MD [address] [place] [phone] 09/30/2023 2:00 PM EST Nurse Only Ancillary [facility] Maia Burks [address] [place] [address] [place], Nurse Annual Wellness [facility] [address] [place] [address] 11/14/2023 2:00 PM EDT Office Visit Hematology/Oncology [facility] Maia Burks [address] [place] [address] Amauri Gustafson MD [address] [place] [address] 11/28/2023 3:00 PM EDT Office Visit Family Practice [facility] [address] [place] [address] Saritha Bishop, [address] [place] [address] 04/19/2024 11:00 AM EDT Imaging Radiology [address] [facility] [place] [address] Pending Results Name Type Priority Associated Diagnoses [...] Screening 09/28/2023 09/27/2022 CKD PHOS USE SMARTSET 69007 11/02/202310/23, 10/14/2021, 03/04/2020, Additional history exists TSH 11/02/2023 11/01/2022, 05/0 08/2021, 10/20/2020, Additional history exists Diabetic Eye Exam 11/29/2023 11/28/2022, , 12/10/2020, Additional history exists HbA1c 12/21/2023 06/22/2023, 10/23, 07/27/2022, Additional history exists GFR 12/30/2023 06/30/2023, 04/24, 03/22/2023, Additional history exists Albumin/Creatinine Ratio 05/25/2024 023, 04/26/2022, 10/27/2020, Additional history exists CKD HGB USE SMARTSET 66291 06/30/202406/30, 06/24/2023, 06/24/2023, Additional history exists DTaP,Tdap,and [...] encounter Medical Devices Implanted Type Area Senior Embedded Software Engineer Device Identifier Shelf Expiration Date Model / Serial / Lot Lens Intraoc 16.0 - [id number] - [id number] Implanted:Qty: 1 on 11/30/2016 by Kt Molina MD at OR [facility] Left: Eye BAUSCH & LOMB 04/23/2021 [id number] / [id number] / [id number] Lens Intraoc 16.0 - [id number] - [id number] Implanted:Qty: 1 on 12/16/2016 by Kt Molina MD at OR [facility] Right: Eye BAUSCH & LOMB 04/23/2021 [id number] / [id number] / [id number] Vectris 1x8 Compact Trial Screening Implanted:Qty: 1 on 05/19/2023 by Dimas Powers DO at OR [facility] Right: Back [employer] : NEUROLOGIC PAIN 02/11/2027 [id number] / / [id number] documented as of this encounter Visit Diagnoses Diagnosis Other iron deficiency anemia Iron deficiency anemia due to chronic blood loss Iron deficiency anemia secondary to blood loss (chronic) documented in this encounter Advance Directives Documents on File Type Date Recorded Patient International Bank Manager Expl anation Advance Directives and Living [...] the patient have Health Care Power of Manager Technical? No Full Code 11/07/2009 9:32 PM 11/12/2009 9:58 PM This order reflects the patients wishes and were consensually agreed upon. Question Answer Comments Discussion of Advance Directives occurred with: Not Discussed Care Teams Lawn Service Manager Relationship Specialty Start Date End Date Saritha Bishop DO [address] [place] [address] PCP - General Family Medicine 05/30/11 documented as of this encounter
--- OUTSIDE RECORDS SUMMARY | 2023-07-06 21:13 | External Medical Summary | Summary of Care ---
Author Name Unknown Organization [facility] [address] [facility] [address] Phone [phone] Care Team Providers Care Sheep Shearer Name Role Phone Saritha Bishop DO Primary Care Provider Reason for Visit * Reason Onset Date Comments Other 07/01/2023 Encounter Details Date Type Department Care Team (Late st Contact Info) Description 07/01/2023 Telephone Gastroenterology, [facility] [address] [place] [address] Yuki Horton MD [address] [place] [address] Other Allergies Active Allergy Reactions Criticality Noted Date Comments Metformin 07/29/2022 Muscle Cramping Metoclopramide Hcl 01/15/2008 Mental changes Sulfa Antibiotics 05/18/2001 hives, welts all over body documented as of this encounter (statuses as of 07/01/2023) Medications Medication Sig Dispensed Refills Start Date [...] mg by mouth daily. 0 09/04/2020 Active [place]-3 1000 MG Oral Capsule Take by mouth. [...] as of this encounter (statuses as of 07/01/2023) Active Problems Problem Noted Date Diagnosed Date [...] as of this encounter (statuses as of 07/01/2023) Resolved Problems Problem Noted Date Diagnosed Date [...] as of this encounter (statuses as of 07/01/2023) Immunizations Name Administration Dates Next Due COVID-19 mRNA, LNP-s, No Pre serve, 2-Dose Series (leaselock) 05/18/2021,10/04/2020,09/06/2020 Pneumococcal Conjugate Vacc, 13 Valent (Prevnar) [...] Bai RN - 07/01/2023 4:39 PM EST [place] plan built and routed for signature. Prior auth not needed for venofer. Can schedule once beacon plan is signed. * Telephone Encounter - Concepcion Zavaleta RN - 07/01/2023 4:27 PM EST [facility] are you able to help [...] AM EST Telemedicine Interventional Pain Center, [facility] 132 [facility] [place] [address] Dimas Powers, DO 132 [facility] [place] [phone] 09/23/2023 11:20 AM EST Office Visit Nephrology, [address] [address] Alex Olivares MD [address] [place] [address] 09/30/2023 2:00 PM EST Nurse Only Ancillary [facility] [address] [place] [address] [place], Nurse Annual Wellness [facility] 200 [facility] [place] [address] 11/14/2023 2:00 PM EDT Office Visit Hematology/Oncology [facility] [place] [address] [place] [address] Amauri Gustafson MD 200 [facility] [place] [address] 11/28/2023 3:00 PM EDT Office Visit Family Practice [facility] [place] [address] [place] [address] Saritha Bishop, DO 200 [facility] [place] [address] 04/19/2024 11:00 AM EDT Imaging Radiology [facility] [address] [place] [address] Scheduled Procedures Name Priority Associated Diagnoses Date/Ti [...] Screening 09/28/2023 09/27/2022 CKD PHOS USE SMARTSET 09681 11/02/2023 04, 10/14/2021, 03/04/2020, Additional history exists TSH 11/02/2023 11/01/2022, 08/2021, 10/20/2020, Additional history exists Diabetic Eye Exam 11/29/2023 11/28/2022, , 12/10/2020, Additional history exists HbA1c 12/21/2023 06/22/2023, 10/23, 07/27/2022, Additional history exists GFR 12/30/2023 06/30/2023, 04/24, 03/22/2023, Additional history exists Albumin/Creatinine Ratio 05/25/2024 023, 04/26/2022, 10/27/2020, Additional history exists CKD HGB USE SMARTSET 84764 06/30/202406/30, 06/24/2023, 06/24/2023, Additional history exists DTaP,Tdap,and [...] this encounter Medical Devices Implanted Type Area Gas Pumping Station Helper Device Identifier Shelf Expiration Date Model / Serial / Lot Lens Intraoc 16.0 - [id number] - [id number] Implanted:Qty: 1 on 11/30/2016 by Kt Molina MD at OR [facility] Left: Eye BAUSCH & LOMB 04/23/2021 [id number] / [id number] / [id number] Lens Intraoc 16.0 - [id number] - [id number] Implanted:Qty: 1 on 12/16/2016 by Kt Molina MD at OR [facility] Right: Eye BAUSCH & LOMB 04/23/2021 [id number] / [id number] / [id number] Vectris 1x8 Compact Trial Screening Implanted:Qty: 1 on 05/19/2023 by Dimas Powers DO at OR [facility] Right: Back [employer] : NEUROLOGIC PAIN 02/11/2027 [id number] / / [id number] documented as of this encounter Advance Directives Documents on File Type Date Recorded Patient Pouncing Lathe Operator Expl anation Advance Directives and Living [...] the patient have Health Care Power of Brokerage Purchase And Sale Clerk? No Full Code 11/07/2009 9:32 PM 11/12/2009 9:58 PM This order reflects the patients wishes and were consensually agreed upon. Question Answer Comments Discussion of Advance Directives occurred with: Not Discussed Care Teams Sheep Shearer Relationship Specialty Start Date End Date Saritha Bishop DO [address] [place] [address] PCP - General Family Medicine 05/30/11 documented as of this encounter
--- OUTSIDE RECORDS SUMMARY | 2023-07-06 21:13 | External Medical Summary | Summary of Care ---
Author Name Unknown Organization [facility] Address [address] [place] [address] Phone [phone] Care Team Providers Care Cable Testers Helper Name Role Phone Saritha Bishop DO Primary Care Provider Reason for Visit * Reason Onset Date Comments Medication Refill 07/04/2023 Encounter Details Date Type Department Care Team (Late st Contact Info) Description 07/04/2023 Telephone Family Practice [facility] 200 [facility] [place] [address] Saritha Bishop DO 200 [facility] [place] [address] Medication Refill Allergies Active Allergy Reactions Criticality Noted Date [...] mg by mouth daily. 0 09/04/2020 Active [place]-3 1000 MG Oral Capsule Take by mouth. 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 Pt currently has 5 days remaining. Thank you, Laurie Coyle CPhT Bench Press Operator II [facility] ([facility]) 07/04/2023,6:03 PM documented in this encounter Plan of Treatment Upcoming Encounters Date Type Department Care Team (Late st Contact Info) Description 07/11/2023 11:00 AM EST Hem/Onc Treatment Hematology/Oncology Treatment, [place] [address] [facility], [place] [address] Kim[place], Chair 10 Hem Onc [address] [facility] [address] 08/09/2023 11:00 AM EST Telemedicine Interventional Pain Center, [facility] [address] [place] [address] Dimas Powers, [address] [place] [phone] 09/23/2023 11:20 AM EST Office Visit Nephrology, [address] [place] [address] Alex Olivares MD [address] [place] [address] [place] [address] 09/30/2023 2:00 PM EST Nurse Only Ancillary [facility] 200 [facility] [place] [address] [place], Nurse Annual Wellness [facility] 200 [facility] [place] [address] 11/14/2023 2:00 PM EDT Office Visit Hematology/Oncology [facility] [place] 200 [facility] [place] [address] Amauri Gustafson MD 200 [facility] [place] [address] 11/28/2023 3:00 PM EDT Office Visit Family Practice [facility] [place] 200 [facility] [place] [address] Saritha Bishop, 200 [facility] [place] [address] 04/19/2024 11:00 AM EDT Imaging Radiology [address] 132 [facility] [place] [address] Scheduled Procedures Name Priority Associated Diagnoses Date/Ti [...] Screening 09/28/2023 09/27/2022 CKD PHOS USE SMARTSET 93431 11/02/202310/23, 10/14/2021, 03/04/2020, Additional history exists TSH 11/02/2023 11/01/2022, 050 08/2021, 10/20/2020, Additional history exists Diabetic Eye Exam 11/29/2023 11/28/2022, , 12/10/2020, Additional history exists HbA1c 12/21/2023 06/22/2023, 10/23, 07/27/2022, Additional history exists GFR 12/30/2023 06/30/2023, 04/24, 03/22/2023, Additional history exists Albumin/Creatinine Ratio 05/25/2024 023, 04/26/2022, 10/27/2020, Additional history exists CKD HGB USE SMARTSET 08191 06/30/202406/30, 06/24/2023, 06/24/2023, Additional history exists DTaP,Tdap,and [...] this encounter Medical Devices Implanted Type Area Beading Installer Device Identifier Shelf Expiration Date Model / Serial / Lot Lens Intraoc 16.0 - [id number] - [id number] Implanted:Qty: 1 on 11/30/2016 by Kt Molina MD at OR [facility] Left: Eye BAUSCH & LOMB 04/23/2021 [id number] / [id number] / [id number] Lens Intraoc 16.0 - [id number] - [id number] Implanted:Qty: 1 on 12/16/2016 by Kt Molina MD at OR [facility] Right: Eye BAUSCH & LOMB 04/23/2021 [id number] / [id number] / [id number] Vectris 1x8 Compact Trial Screening Implanted:Qty: 1 on 05/19/2023 by Dimas Powres DO at OR [facility] Right: Back [employer] : NEUROLOGIC PAIN 02/11/2027 [id number] / / [id number] documented as of this encounter Visit Diagnoses Diagnosis HYPOTHYROIDISM NOS Unspecified hypothyroidism documented in this encounter Advance Directives Documents on File Type Date Recorded Patient Rpg Programmer Expl anation Advance Directives and Living Will [...] the patient have Health Care Power of Ear Flap Binder? No Full Code 11/07/2009 9:32 PM 11/12/2009 9:58 PM This order reflects the patients wishes and were consensually agreed upon. Question Answer Comments Discussion of Advance Directives occurred with: Not Discussed Care Teams Cable Testers Helper Relationship Specialty Start Date End Date Saritha Bishop DO [address] [place] [address] PCP - General Family Medicine 05/30/11 documented as of this encounter
--- OUTSIDE RECORDS SUMMARY | 2023-07-06 21:13 | External Medical Summary | Summary of Care ---
Author Name Unknown Organization [facility] Address [address] [place] [address] Phone [phone] Care Team Providers Care Reroller Hand Name Role Phone Saritha Bishop DO Primary Care Provider Reason for Visit * Reason Onset Date Comments Test Results 06/21/2023 Encounter Details Date Type Department Care Team (Late st Contact Info) Description 06/21/2023 Telephone Family Practice [facility] [address] [facility] [place] [address] Saritha Bishop DO [address] [facility] [place] [address] Test Results Allergies Active Allergy Reactions Criticality Noted Date Comments Metformin 07/29/2022 Muscle Cramping Metoclopramide Hcl 01/15/2008 Mental changes Sulfa Antibiotics 05/18/2001 hives, welts all over body documented as of this encounter (statuses as of 07/04/2023) Medications Medication Sig Dispensed Refills Start Date End Date Status EXCEDRIN EXTRA STRENGTH 250-250-65 MG PO TABS take 1-2 tablets by mouth as needed 0 3 Active Nutritional Supplements (ENSURE) Take by mouth 2 times a day. 0 Active Multiple Vitamin (MULTI-DAY) TabletIndications :senior vitamin Take 1 Tab by mouth daily. Indications: senior vitamin 0 Active Magnesium Malate 1250 (141.7 Mg) MG Oral Tablet Take 800 mg by mouth daily. 0 1 Active [place]-3 1000 MG Oral Capsule Take by mouth. 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 Apply to vulva nightly x2 weeks, then 2x/week 30 g 6 2 Active Fluticasone Propionate 50 MCG/ACT Nasal Suspension (Flonase)Indicati ons:Nasal sinus polyp ADMINISTER 2 SPRAYS INTO EACH NOSTRIL DAILY 48 g 1 3 01/08/20 24 Active Prazosin HCl 1 MG Oral Capsule (Minipress) TAKE ONE CAPSULE BY MOUTH EVERY DAY BEFORE BEDTIME 90 Capsule 3 3 12/23/19 24 Active Pantoprazole Sodium 40 MG Oral Tablet Delayed Release (Protonix) TAKE ONE TABLET BY MOUTH EVERY MORNING 90 Tablet 2 3 12/06/19 24 Active miSOPROStol 200 MCG Oral Tablet (Cytotec) Take 1 Tablet by mouth in the morning and 1 Tablet at noon and 1 Tablet in the evening and 1 Tablet before bedtime. 90 Tablet 3 3 Active Additional Information Patient not taking.Reported on 05/23/2023 Levothyroxine Sodium 50 MCG Oral Tablet (Levoxyl)Indicati ons:Hypothyroidis m TAKE ONE HALF TABLET BY MOUTH DAILY. EXCEPT TAKE ONE TABLET ON THURSDAYS AND SUNDAYS 100 Tablet 1 3 Active rOPINIRole HCl ER 4 MG Oral Tablet Extended Release 24 Hour (Requip XL) TAKE ONE TABLET BY MOUTH EVERY DAY 90 Tablet 3 3 05/08/20 24 Active predniSONE 20 MG Oral Tablet (Deltasone) Take 1 Tablet by mouth in the morning. 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 90 Tablet 3 3 Active traZODone HCl 50 MG Oral Tablet (Desyrel) TAKE ONE AND ONE-HALF TABLETS BY MOUTH AT BEDTIME 135 Tablet 3 3 Active traMADol HCl 50 MG Oral Tablet (Ultram)Indicatio ns:Lumbar back pain with radiculopathy affecting left lower extremity TAKE ONE TABLET BY MOUTH EVERY EIGHT HOURS NEEDED FOR SEVERE PAIN 150 Tablet 0 3 12/15/19 24 Active Cyanocobalamin 1000 MCG/ML Injection Solution (Cyanocobalamin)I ndications:Other iron deficiency anemia Give 1000mcg IM once a week x3, then monthly thereafter 4 mL 0 3 Active Restasis 0.05 % Ophthalmic Emulsion 0 1 06/30/20 23 Discontinued(Ca dication List Clean Up) amLODIPine Besylate 5 MG Oral Tablet (Norvasc) TAKE ONE TABLET BY MOUTH EVERY MORNING 90 Tablet 3 3 06/30/20 23 Discontinued Pyridostigmine [place] 60 MG Oral Tablet (Mestinon) 1/2 tab [...] tab three times daily 90 Tablet 2 3 06/30/20 23 Discontinued(Ca dication List Clean Up) documented as of this encounter (statuses as [...] Addendum Note - Barbara Carvalho MD - 06/23/2023 4:37 PM ESTAddended by: BARBARA CARVALHO on: 06/23/2023 04:37 PM Modules accepted: Orders * Telephone Encounter - Barbara Carvalho MD - 06/23/2023 4:37 PM EST Sign Vitamin B12 injection order. * Addendum Note - Pina Bai RN - 06/23/2023 3:54 PM ESTAddended by: PINA BAI on: 06/23/2023 03:54 PM Modules accepted: Orders * Telephone Encounter - Pina Bai RN - 06/23/2023 3:[address] Carvalho: "Blood workup done on 06/22/2023: - Vitamin B-12 --> 228 - Folic acid --> > 20 - Serum iron: 15, TIBC 288, saturation 5% her ferritin level --> 12% Evidence of iron deficiency as well as B12 deficiency noted. Yesterday we plan for IV iron with Monoferric (Ferric derisomaltose) . Is she on vitamin B-12 supplementation? I would like to give her parental vitamin B-12 1000 microgram once a week x 4 and then once a month." Reviewed with Dr Carvalho, would still like to proceed with monoferric and b12 tomorrow. Called patient, offered appt tomorrow at 11:45am (since she sees neuro tomorrow morning as well). She accepted appt. Patient previously gave herself B12 injections but stopped. Would like to do home injection again (but will get first injection here tomorrow). [place] plan for B12 built and routed for signature. Dr Carvalho: please sign rx for B12. * Telephone Encounter - Indu Gutierrez OSA - 06/23/2023 3:09 PM EST Patient is calling in regards to the previous messages. She went to the ER and she is currently in the process of getting discharged. She states that when she spoke with Pina yesterday that she was to come in for an infusion tomorrow but was never given a time. She is wondering if she still should come in. Please advise: [phone] * Telephone Encounter - Pina Bai RN - 06/22/2023 3:14 PM EST [...] if needed. Patient agreeable, will go to [facility]. Called [facility] ER to make them aware patient is coming, spoke to Jocelynn Brasher. * Telephone Encounter - Pina Bai RN - 06/22/2023 1:51 PM EST [place] plan built and routed for signature. Waiting for auth. Called patient. She notes that she recently started having black tarry stools. She is having slightSOB but is still able to do her normal activities. She has noticed more fatigue- states that she went to [place] [facility] this morning and was exhausted/ had [...] to have a permanent stimulator placed at [facility]. Advised her that we will follow [...] there is anything else he suggests. Called [facility] and was transferred to pre-admission testing. Left message asking that they return callto discuss labs/ plan of care. Dr Horton: SONALII * Addendum Note - Barbara Carvalho MD - 06/22/2023 10:41 AM ESTAddended by: BARBARA CARVALHO on: 06/22/2023 10:41 AM Modules accepted: Orders * Telephone Encounter - Barbara Carvalho MD - 06/22/2023 10:[address] Gustafson is away, I am covering him. Blood workup done on 06/13/2023 at [facility]: -WBC 9300, H&H of 7.2/20.7, Platelet count of 432618, MCV of 96.7. -BUN/Creat: 40/1.1. Calcium 8.1 [...] 06/21/2023 3:26 PM EST Linda with [facility] called in regards to the patient's pre op labs coming back. She said that her Hemoglobin was 7.2 and her hematocrit was 23.7. The patient has an appt with Dr. Herring on 06/28/2023 for a pre op appt but the PA from [facility] wanted us to be aware of thelab results before then. documented in this encounter Plan of Treatment Upcoming Encounters Date Type Department Care Team (Late st Contact Info) Description 08/09/2023 11:00 AM EST Telemedicine Interventional Pain Center, [facility] [address] [place] [address] Dimas Powers DO [address] [place] [phone] 09/23/2023 11:20 AM EST Office Visit Nephrology, [address] [id number] Alex Olivares MD [address] [place] [address] 09/30/2023 2:00 PM EST Nurse Only Ancillary [facility] [place] [address] [facility] [place] [address] Kimmie, Nurse Annual Wellness [address] [facility] [place] [address] 11/14/2023 2:00 PM EDT Office Visit Hematology/Oncology [facility] [place] [address] [place] [address] Amauri Gustafson MD [address] [place] [address] 11/28/2023 3:00 PM EDT Office Visit [facility] [address] [facility] [place] [address] Saritha Bishop DO [address] [facility] [place] [address] 04/19/2024 11:00 AM EDT Imaging Radiology [address] [facility] [place] [address] Scheduled Procedures Name Priority Associated Diagnoses Date/Ti [...] Screening 09/28/2023 09/27/2022 CKD PHOS USE SMARTSET 20690 11/02/202310/23, 10/14/2021, 03/04/2020, Additional history exists TSH 11/02/2023 11/01/2022, 05/0 08/2021, 10/20/2020, Additional history exists Diabetic Eye Exam 11/29/2023 11/28/2022, , 12/10/2020, Additional history exists HbA1c 12/21/2023 06/22/2023, 10/23, 07/27/2022, Additional history exists GFR 12/30/2023 06/30/2023, 04/24, 03/22/2023, Additional history exists Albumin/Creatinine Ratio 05/25/202405/25/2 023, 04/26/2022, 10/27/2020, Additional history exists CKD HGB USE SMARTSET 58160 06/30/202406/30, 06/24/2023, 06/24/2023, Additional history exists DTaP,Tdap,and [...] this encounter Medical Devices Implanted Type Area Surgical Services Director Device Identifier Shelf Expiration Date Model / Serial / Lot Lens Intraoc 16.0 - [id number] - [id number] Implanted:Qty: 1 on 11/30/2016 by Kt Molina MD at OR [facility] Left: Eye [employer] 04/23/2021 [id number] / [id number] / [id number] Lens Intraoc 16.0 - [id number] - [id number] Implanted:Qty: 1 on 12/16/2016 by Kt Molina MD at OR [facility] Right: Eye BA[employer]CH [employer] LOMB 04/23/2021 [id number] / [id number] / [id number] Vectris 1x8 Compact Trial Screening Implanted:Qty: 1 on 05/19/2023 by Dimas Powers DO at OR [facility] Right: Back [employer] : NEUROLOGIC PAIN 02/11/2027 [id number] / / [id number] documented as of this encounter Visit Diagnoses Diagnosis Other iron deficiency anemia- Primary documented in this encounter Advance Directives Documents on File Type Date Recorded 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 No Full Code 11/07/2009 9:32 PM 11/12/2009 9:58 PM This order reflects the patients wishes and were consensually agreed upon. Question Answer Comments Discussion of Advance Directives occurred with: Not Discussed Care Teams Reroller Hand Relationship Specialty Start Date End Date Saritha Bishop DO [facility] [place] [address] [address] PCP - General Family Medicine 05/30/11 documented as of this encounter
--- OUTSIDE RECORDS SUMMARY | 2023-07-06 21:13 | External Medical Summary | Summary of Care ---
Author Name Unknown Organization [facility] Address [address] [facility] [address] Phone [phone] Care Team Providers Care Audio Installer Name Role Phone Saritha Bishop DO Primary Care Provider Reason for Visit * Reason Onset Date Comments Other 07/01/2023 Encounter Details Date Type Department Care Team (Late st Contact Info) Description 07/01/2023 Telephone Gastroenterology, [facility] [address] [place] [address] Yuki Horton MD [address] [place] [address] Other Allergies Active Allergy Reactions Criticality Noted [...] mg by mouth daily. 0 09/04/2020 Active [place]-3 1000 MG Oral Capsule Take by mouth. [...] mRNA, LNP-s, No Pre serve, 2-Dose Series (Beamly) 05/18/2021,10/04/2020,09/06/2020 Pneumococcal Conjugate Vacc, 13 Valent (Prevnar) [...] Bai RN - 07/04/2023 8:22 AM EST [place] is signed. Scheduling: please call patient to schedule 2 hour appt "200mg venofer 07/28" (Dr Yuki Horton). Thanks! Patient will need 200mg venofer once a week x4. * Telephone Encounter - Kelsea Bai RN - 07/01/2023 4:39 PM EST [place] plan built and routed for signature. Prior auth not needed for venofer. Can schedule once [place] plan is signed. * Telephone Encounter - Concepcion Zavaleta RN - 07/01/2023 4:27 PM EST [facility] are you able to help arrange venofer infusions? Pt is agreeable to SP location. * Telephone Encounter - Concepcion Zavaleta RN - 07/01/2023 4:16 PM EST ----- Message from uYki Horton MD sent at 07/01/2023 3:19 PM [...] 11:00 AM EST Hem/Onc Treatment Hematology/Oncology Treatment, [place] [address] [place], [place] [address] Kimmie, Chair 10 Hem Onc [facility] [address] [place] [address] 08/09/2023 11:00 AM EST Telemedicine Interventional Pain Center, [facility] [address] [place] [address] Dimas Powers, [address] [place] [phone] 09/23/2023 11:20 AM EST Office Visit Nephrology, [facility] [address] [place] [address] Alex Olivares MD [address] [place] [address] 09/30/2023 2:00 PM EST Nurse Only Ancillary [facility] [place] [address] [place] [address] Kimmie, Nurse Annual Wellness [facility] [address] [facility] [place] [address] 11/14/2023 2:00 PM EDT Office Visit Hematology/Oncology [facility] [place] [address] [place] [address] Amauri Gustafson MD [address] [place] [address] 11/28/2023 3:00 PM EDT Office Visit Family Practice [facility] [place] [address] [place] [address] Saritha Bishop, [address] [place] [address] 04/19/2024 11:00 AM EDT Imaging Radiology [address] [place] [address] Scheduled Procedures Name Priority Associated Diagnoses Date/Ti [...] Screening 09/28/2023 09/27/2022 CKD PHOS USE SMARTSET 90974 11/02/202310/23, 10/14/2021, 03/04/2020, Additional history exists TSH 11/02/2023 11/01/2022, 05/0 08/2021, 10/20/2020, Additional history exists Diabetic Eye Exam 11/29/2023 11/28/2022, , 12/10/2020, Additional history exists HbA1c 12/21/2023 06/22/2023, 10/23, 07/27/2022, Additional history exists GFR 12/30/2023 06/30/2023, 04/24, 03/22/2023, Additional history exists Albumin/Creatinine Ratio 05/25/202405/25/2 023, 04/26/2022, 10/27/2020, Additional history exists CKD HGB USE SMARTSET 07880 06/30/202406/30, 06/24/2023, 06/24/2023, Additional history exists DTaP,Tdap,and [...] this encounter Medical Devices Implanted Type Area Conformal Pad Former Device Identifier Shelf Expiration Date Model / Serial / Lot Lens Intraoc 16.0 - [id number] - [id number] Implanted:Qty: 1 on 11/30/2016 by Kt Molina MD at OR [facility] Left: Eye [employer]OM[employer] 04/23/2021 [id number] / [id number] / [id number] Lens Intraoc 16.0 - [id number] - [id number] Implanted:Qty: 1 on 12/16/2016 by Kt Molina MD at OR [facility] Right: Eye BAUSCH [employer] LOMB 04/23/2021 [id number] / [id number] / [id number] Vectris 1x8 Compact Trial Screening Implanted:Qty: 1 on 05/19/2023 by Dimas Powers DO at OR [facility] Right: Back [employer] : NEUROLOGIC PAIN 02/11/2027 [id number] / / [id number] documented as of this encounter Advance Directives Documents on File Type Date Recorded 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 No Full Code 11/07/2009 9:32 PM 11/12/2009 9:58 PM This order reflects the patients wishes and were consensually agreed upon. Question Answer Comments Discussion of Advance Directives occurred with: Not Discussed Care Teams Audio Installer Relationship Specialty Start Date End Date Saritha Bishop DO [address] [place], [place] [address] PCP - General Family Medicine 05/30/11 documented as of this encounter
--- OUTSIDE RECORDS SUMMARY | 2023-07-06 21:14 | External Medical Summary ---
Author Name Unknown Address Unknown Organization K09:[facility] [address] [place] [address] Laboratory Report Ordering Provider Test Date Status SATNAM DEL TORO 06/30/2023 15:43:44 Final Observation Date Value Abnormality Reference (Units ) Status WBC, Total 06/30/2023 15:43:44 8.86 4.00-10.8 0 (K/uL) Final RBC 06/30/2023 15:43:44 2.74 3.85-5.15 (M/uL) Final Hemoglobin 06/30/2023 15:43:44 8.1 Below low normal 12 .0-15.3 (g/dL) Final HCT 06/30/2023 15:43:44 26.3 Below low normal 36. 0-45.2 (%) Final MCV 06/30/2023 15:43:44 96.0 81.5-97.5 (fL) Final MCH 06/30/2023 15:43:44 29.6 27.0-34.0 (pg) Final MCHC 06/30/2023 15:43:44 30.8 32.0-36.0 (g/dL) Final RDW 06/30/2023 15:43:44 15.8 11.5-15.5 (%) Final Platelets 06/30/2023 15:43:44 398 140-400 (K /uL) Final MPV 06/30/2023 15:43:44 9.3 6.6-11.1 ( fL) Final Performing Location [facility] [address] [place] [address]
--- OUTSIDE RECORDS SUMMARY | 2023-07-06 21:14 | External Medical Summary | Summary of Care ---
Author Name Unknown Organization [facility] Address [address] [place] [address] Phone [phone] Care Team Providers Care Grocery Sacker Name Role Phone Saritha Bishop DO Primary Care Provider Reason for Visit * Reason Onset Date Comments Advice 07/01/2023 FYI 07/01/2023 Pt computer is d own please use phone # [phone] until further notice. Encounter Details Date Type Department Care Team (Late st Contact Info) Description 07/01/2023 Telephone Family Practice [facility] [place] [facility] [place] [address] Saritha Bishop DO [address] [facility] [place] [id number] Advice; FYI (Pt computer is down please us... Allergies Active Allergy Reactions Criticality Noted Date [...] mg by mouth daily. 0 09/04/2020 Active [place]-3 1000 MG Oral Capsule Take by mouth. [...] encounter Miscellaneous Notes * Telephone Encounter - Bella Villarreal OSA - 07/01/2023 10:20 AM EST Pt computer is down please use phone # [phone] until further notice. * Telephone Encounter - Efe Reyes OSA - 07/01/2023 9:30 AM EST Advised of surgery cancellation. Please call to discuss. * Telephone Encounter - Kailyn Oh OSA - 07/01/2023 9:19 AM EST Yaquelin with Dr. Cuba's office called and said that patient's surgery for Tuesday was cancelled due to Hemoglobin. * Telephone Encounter - Saritha Bishop DO - 07/01/2023 8:42 AM EST Scheduled for spinal stimulator implant by Dr. Cuba on Tuesday, Jul 04. Pt Hb is 8.1, baseline is in the 9s, has had recent GI bleed, followed by Dr. Duron, and frequently receives IV iron and B12. Recent hospitalization at [facility], received 2 U PRBCs. No cause of bleeding was found, she has had this happen several times, last year extensive workup was negative. Dr. Duron thinks further workup won't reveal a source, pt anxious to have procedure done for pain relief, we could try to get her more IV iron, admit overnight for observation shamar bertrand in morning after and transfuse/IV iron if necessary if anesthesia, and Dr. Cuba are comfortable with that. I called Dr. Cuba's nurse and left a message, awaiting a call back, and called anesthesia, left amessage with J[place] Burdick to call back to discuss. Saritha Bishop DO Addendum: just spoke with J[place] Burdick, she says Dr. Cuba does not feel comfortable doing procedure at this time. Discussed chronic anemia and will ask at what level he would feel comfortable,anesthesia recommends "optimization" for this patient optimization would be 4 weeks IV iron, she reports she is having brown stools now, no more bleeding Latest Reference Range & Units 03/31/22 11:23 06/07/22 10:41 07/20/22 09:17 07/27/22 12:47 08/13/22 11:05 09/13/22 10:35 10/11/22 11:31 11/01/22 10:18 01/17/23 12:33 05/04/23 11:18 06/24/23 14: 15:43 HGB 12.0 - 15.3 g/dL 11.1 (L) 11.2 (L) 5.6 (LL) 8.4 (L) 9.9 (L) 10.7 (L) 11.0 (L) 11.9 (L) 12.1 12.9 9.2 (L) 8.1 (L) * Telephone Encounter - Kelsea Kramer LPN - 07/01/2023 8:17 AM EST [facility] calling in requesting Pre OP clearance note to be completed as surgery is on Tuesday documented in this encounter Plan of Treatment Upcoming Encounters Date Type Department Care Team (Late st Contact Info) Description 08/09/2023 11:00 AM EST Telemedicine Interventional [facility] Center, [facility] 132 [facility] [place] [address] Dimas Powers, DO 132 [facility] [place] [address] 09/23/2023 11:20 AM EST Office Visit Nephrology, [address] [address] Alex Olivares MD [address] [place] [address] 09/30/2023 2:00 PM EST Nurse Only Ancillary [facility] [place] [address] [place] [address] [place], Nurse Annual Wellness [facility] [address] [place] [address] 11/14/2023 2:00 PM EDT Office Visit Hematology/Oncology [facility] [place] [address] [place] [address] Amauri Gustafson MD [address] [place] [address] 11/28/2023 3:00 PM EDT Office Visit Family Practice [facility] [place] [address] [place] [address] Saritha Bishop, DO [address] [place] [address] 04/19/2024 11:00 AM EDT Imaging Radiology [facility] [place] [address] Pending Results Name Type Priority Associated Diagnoses Date /Time RETICULOCYTE PANEL Lab Routine Other iron deficiency anemia 06/30/2023 3:43 PM EST HAPTOGLOBIN Lab Routine Other iron deficiency anemia 06/30/2023 3:43 PM EST LD Lab Routine Other iron deficiency anemia 06/30/2023 3:43 PM EST Scheduled Orders Name Type Priority Associated Diagnoses Orde r Schedule RETICULOCYTE PANEL Lab Routine Other iron deficiency anemia Expected: 07/01/2023, Expires: 07/01/2024 HAPTOGLOBIN Lab Routine Other iron deficiency anemia Expected: 07/01/2023, Expires: 07/01/2024 LD Lab Routine Other iron deficiency anemia Expected: 07/01/2023, Expires: 07/01/2024 COPPER, SERUM OR PLASMA Lab Routine Other iron deficiency anemia Expected: 07/08/2023, Expires: 07/01/2024 Scheduled Procedures Name Priority Associated Diagnoses Date/Ti [...] Screening 09/28/2023 09/27/2022 CKD PHOS USE SMARTSET 48059 11/02/2023 04, 10/14/2021, 03/04/2020, Additional history exists TSH 11/02/2023 11/01/2022, 05/0 08/2021, 10/20/2020, Additional history exists Diabetic Eye Exam 11/29/2023 11/28/2022, , 12/10/2020, Additional history exists HbA1c 12/21/2023 06/22/2023, 10/23, 07/27/2022, Additional history exists GFR 12/30/2023 06/30/2023, 04/24, 03/22/2023, Additional history exists Albumin/Creatinine Ratio 05/25/2024 11/2 023, 04/26/2022, 10/27/2020, Additional history exists CKD HGB USE SMARTSET 92999 06/30/202406/30, 06/24/2023, 06/24/2023, Additional history exists DTaP,Tdap,and [...] this encounter Medical Devices Implanted Type Area Medical And Scientific Illustrator Device Identifier Shelf Expiration Date Model / Serial / Lot Lens Intraoc 16.0 - [id number] - [id number] Implanted:Qty: 1 on 11/30/2016 by Kt Molina MD at OR [facility] Left: Eye BAUSCH & LOMB 04/23/2021 [id number] / [id number] / [id number] Lens Intraoc 16.0 - [id number] - [id number] Implanted:Qty: 1 on 12/16/2016 by Kt Molina MD at OR [facility] Right: Eye BAUSCH & LOMB 04/23/2021 [id number] / [id number] / [id number] Vectris 1x8 Compact Trial Screening Implanted:Qty: 1 on 05/19/2023 by Dimas Powers DO at OR [facility] Right: Back [employer] : NEUROLOGIC PAIN 02/11/2027 [id number] / / [id number] documented as of this encounter Visit Diagnoses Diagnosis Other iron deficiency anemia- Primary documented in this encounter Advance Directives Documents on File Type Date Recorded 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 No Full Code 11/07/2009 9:32 PM 11/12/2009 9:58 PM This order reflects the patients wishes and were consensually agreed upon. Question Answer Comments Discussion of Advance Directives occurred with: Not Discussed Care Teams Grocery Sacker Relationship Specialty Start Date End Date Saritha Bishop DO [address] [place] [address] PCP - General Family Medicine 05/30/11 documented as of this encounter
--- OUTSIDE RECORDS SUMMARY | 2023-07-06 21:14 | External Medical Summary ---
Author Name Unknown Address Unknown Organization K01:LABORATORY [facility] - [address] [place] [address] Laboratory Report Ordering Provider Test Date Status SIDNEYBELLAKARINA 06/30/2023 15:43:44 Final Observation Date Value Abnormality Reference (Units ) Status Haptoglobin 06/30/2023 15:43:44 136 30-200 ( mg/dL) Final Performing Location LAB[facility] - [address] [place] [address]
--- OUTSIDE RECORDS SUMMARY | 2023-07-06 21:14 | External Medical Summary ---
Author Name Unknown Address Unknown Organization K01:[facility]ATORY [facility] - [address] [place] [address] Laboratory Report Ordering Provider Test Date Status GARRY LITTLE 06/30/2023 15:43:44 Final Observation Date Value Abnormality Reference (Units ) Status LDH 06/30/2023 15:43:44 174 <=250 (U/L ) Final Performing Location [facility]AT[facility] - [address] [place] [address]
--- OUTSIDE RECORDS SUMMARY | 2023-07-06 21:14 | External Medical Summary | Summary of Care ---
Author Name Unknown Organization [facility] Address [address] [place] [address] Phone [phone] Care Team Providers Care Photogrammetrist Name Role Phone Saritha Bishop DO Primary Care Provider Reason for Referral * Precert (Within 10 days (routine)) - Authorized Specialty Diagnoses / Procedures Referred By Contlaura obando Referred To Contact Radiology Diagnoses Iron deficiency anemia due to chronic blood loss Procedures VIDEO CAPSULE ENDOSCOPY Yuki Horton MD [address] [employer] [place] [address] Referral ID Status Reason Start Date Expiration Date V isits Requested Visits Authorized [id number] Authorized Precert 07/01/2023 10/31/2023 999 999 Encounter Details Date Type Department Care Team (Late st Contact Info) Description 07/01/2023 2:00 PM EST Telemedicine Gastroenterology, [facility] [address] [place] [address] Yuki Horton MD [address] [place] [address] Iron deficiency anemia due to chronic blood loss* Allergies Active Allergy Reactions Criticality Noted Date [...] mg by mouth daily. 0 09/04/2020 Active [place]-3 1000 MG Oral Capsule Take by mouth. [...] on file documented as of this encounter Progress Notes * Cecilia Guerra LPN - 07/01/2023 4:22 PM EST Patient identified by name and date of [...] iron deficiency anemia. Hx of melena * Yuki Horton MD - 07/01/2023 3:11 PM EST After connecting to the patient via telephone, the patient was identified by name and date of . Patient was then informed that this was a telephone call only visit. The patient agreed to participate. Visit Disposition: Total call duration was 25 minutes.Routine follow-up Pt s/p gastrectomy with subtotal gastrectomy with RY reconsruction for gastroparesis recently hospitalized for dark stool, fall in hgb from baseline 12 to 9. She had similar presentation last Aug 15,when she had EGD/push enteroscopy, VCE, cscopy without source of bleeding; bleeding stopped spont. At present, she reports cessation of dark stool. Last hgb 8.1, yesterday. She is also iron deficient. She has back pain and is awaiting sinal stimulator, which is on hold until source of anemia is clarified. Will proceed with VCE. R/b/I discussed with pt. WIll forego patency, since pt had VCE last year without incident. Discussed yield of colonoscopy. WIll defer cscopy for now, but follow hgb weekly x 4; will pursue cscopy if hgb falls. IV iron weekly x 4. documented in this encounter Plan of Treatment Upcoming Encounters Date Type Department Care Team (Late st Contact Info) Description 08/09/2023 11:00 AM EST Telemedicine Interventional Pain Center, [facility] [address] [place] [address] Dimas Powers DO [address] [place] [phone] 09/23/2023 11:20 AM EST Office [address] Nephrology, [address] [place] [address] Alex Olivares MD [address] [place], [place] [address] [address] 09/30/2023 2:00 PM EST Nurse Only Ancillary [place] [address] [place] [address] [place] Nurse Annual Wellness [facility] 200 [facility] [place] [address] 11/14/2023 2:00 PM EDT Office Visit Hematology/Oncology [facility] [address] [place] [address] Amauri Gustafson MD 200 [facility] [place] [address] 11/28/2023 3:00 PM EDT Office Visit Family Practice [facility] [address] [place] [address] Saritha Bishop DO 200 [facility] [place] [address] 04/19/2024 11:00 AM EDT Imaging Radiology [address] [place] [address] Scheduled Orders Name Type Priority Associated Diagnoses Orde r Schedule HGB Lab Routine Iron deficiency anemia due to chronic blood loss Every Week for 4 Occurrences starting 07/01/2023 until 07/01/2024 VIDEO CAPSULE ENDOSCOPY Gastro Upper Routine Iron deficiency anemia due to chronic blood loss Ordered: 07/01/2023 Scheduled Procedures Name Priority Associated Diagnoses Date/Ti [...] Screening 09/28/2023 09/27/2022 CKD PHOS USE SMARTSET 84944 11/02/2023 04/1 , 10/14/2021, 03/04/2020, Additional history exists TSH 11/02/2023 11/01/2022, 05/0 08/2021, 10/20/2020, Additional history exists Diabetic Eye Exam 11/29/2023 11/28/2022, , 12/10/2020, Additional history exists HbA1c 12/21/2023 06/22/2023, 10/23, 07/27/2022, Additional history exists GFR 12/30/2023 06/30/2023, 04/24, 03/22/2023, Additional history exists Albumin/Creatinine Ratio 05/25/2024 023, 04/26/2022, 10/27/2020, Additional history exists CKD HGB USE SMARTSET 59424 06/30/202406/30, 06/24/2023, 06/24/2023, Additional history exists DTaP,Tdap,and [...] this encounter Medical Devices Implanted Type Area Field Rep Device Identifier Shelf Expiration Date Model / Serial / Lot Lens Intraoc 16.0 - [id number] - [id number] Implanted:Qty: 1 on 11/30/2016 by Kt Mol[place] MD at OR [facility] Left: Eye BAUSCH & LOMB 04/23/2021 [id number] / [id number] / [id number] Lens Intraoc 16.0 - [id number] - [id number] Implanted:Qty: 1 on 12/16/2016 by Kt Mol[place] MD at OR [facility] Right: Eye BAUSCH & LOMB 04/23/2021 [id number] / [id number] / [id number] Vectris 1x8 Compact Trial Screening Implanted:Qty: 1 on 05/19/2023 by Dimas Powers DO at OR [facility] Right: Back [employer] : NEUROLOGIC PAIN 02/11/2027 [id number] / / [id number] documented as of this encounter Visit Diagnoses Diagnosis Iron deficiency anemia due to chronic blood loss- Primary Iron deficiency anemia secondary to blood loss (chronic) documented in this encounter Advance Directives Documents on File Type Date Recorded 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 No Full Code 11/07/2009 9:32 PM 11/12/2009 9:58 PM This order reflects the patients wishes and were consensually agreed upon. Question Answer Comments Discussion of Advance Directives occurred with: Not Discussed Care Teams Photogrammetrist Relationship Specialty Start Date End Date Saritha Bishop DO [address] [place] [address] PCP - General Family Medicine 05/30/11 documented as of this encounter
--- OUTSIDE RECORDS SUMMARY | 2023-07-06 21:14 | External Medical Summary ---
Author Name Unknown Address Unknown Organization K01:LABORATORY [facility] - [address] [place] [facility] [address] Laboratory Report Ordering Provider Test Date Status GARRY LITTLE 06/30/2023 15:43:44 Final Observation Date Value Abnormality Reference (Units ) Status Retic, % (auto) 06/30/2023 15:43:44 6.37 Above high normal 0.80-1.90 (%) Final Reticulocytes, Absolute 06/30/2023 15:43:44 175.2 Above high normal 31.3-100.1 (K/uL) Final Reticulocyte fraction, immature 06/30/2023 15:43:44 27.0 Above high normal 2.5-20.6 (%) Final Reticulocyte HGB 06/30/2023 15:43:44 37.3 29.7-37.4 (pg) Final Performing Location LABORATORY [facility] - [address] [facility] [address]
--- OUTSIDE RECORDS SUMMARY | 2023-07-06 21:14 | External Medical Summary | Summary of Care ---
Author Name Unknown Organization [facility] Address [address] [place] [address] Phone [phone] Care Team Providers Care Multimedia Authoring Specialist Name Role Phone Saritha Bishop DO Primary Care Provider Reason for Visit * Reason Comments Outpatient Testing Encounter Details Date Type Department Care Team (Late st Contact Info) Description 06/30/2023 4:20 PM EST Laboratory Laboratory Scenery [facility] [address] [place] [address] [facility] [address] [place] [address] Preop examination Allergies Active Allergy Reactions Criticality Noted Date Comments Metformin 07/29/2022 Muscle Cramping Metoclopramide Hcl 01/15/2008 Mental changes Sulfa Antibiotics 05/18/2001 hives, welts all over body documented as of this encounter (statuses as of 06/30/2023) Medications Medication Sig Dispensed Refills Start Date [...] mg by mouth daily. 0 09/04/2020 Active [place]-3 1000 MG Oral Capsule Take by mouth. [...] as of this encounter (statuses as of 06/30/2023) Active Problems Problem Noted Date Diagnosed Date [...] as of this encounter (statuses as of 06/30/2023) Resolved Problems Problem Noted Date Diagnosed Date [...] as of this encounter (statuses as of 06/30/2023) Immunizations Name Administration Dates Next Due COVID-19 mRNA, LNP-s, No Pre serve, 2-Dose Series (Bindo) 05/18/2021,10/04/2020,09/06/2020 Pneumococcal Conjugate Vacc, 13 Valent (Prevnar) [...] 11:00 AM EST Telemedicine Interventional Pain Center, [facility] [address] [place] [address] Dimas Powers, [address] [place] [address] 09/23/2023 11:20 AM EST Office Visit Nephrology, [address] [address] Alex Olivares MD [address] [place] [address] 09/30/2023 2:00 PM EST Nurse Only Ancillary [facility] [place] [address] [place] [address] [place], Nurse Annual Wellness [facility] [address] [place] [address] 11/14/2023 2:00 PM EDT Office Visit Hematology/Oncology [facility] [place] [address] [place] [address] Amauri Gustafson MD [address] [place] [address] 11/28/2023 3:00 PM EDT Office Visit Family Practice [facility] [place] [address] [place] [address] Saritha Bishop, [address] [place] [address] 04/19/2024 11:00 AM EDT Imaging Radiology [address], [place] 132 [facility] [place] [address] Pending Results Name Type Priority Associated Diagnoses Date /Time CBC Lab Routine Preop examination 06/30/2023 3:43 PM EST COMPREHENSIVE METABOLIC PANEL Lab Routine Preop examination 06/30/2023 3:43 PM EST Scheduled Procedures Name Priority Associated [...] Screening 09/28/2023 09/27/2022 CKD PHOS USE SMARTSET 26459 11/02/2023 04/1 , 10/14/2021, 03/04/2020, Additional history exists TSH 11/02/2023 11/01/2022, 0508/2021, 10/20/2020, Additional history exists GFR 11/03/2023 05/04/2023, 0803/2023, 12/06/2022, Additional history exists Diabetic Eye Exam 11/29/2023 11/28/2022, , 12/10/2020, Additional history exists HbA1c 12/21/2023 06/22/2023, 04, 07/27/2022, Additional history exists Albumin/Creatinine Ratio 05/25/2024 023, 04/26/2022, 10/27/2020, Additional history exists CKD HGB USE SMARTSET 19113 06/24/202406/24, 06/24/2023, 05/04/2023, Additional history exists DTaP,Tdap,and Td Vaccines (4 [...] this encounter Medical Devices Implanted Type Area Apartment Locator Device Identifier Shelf Expiration Date Model / Serial / Lot Lens Intraoc 16.0 - [id number] - [id number] Implanted:Qty: 1 on 11/30/2016 by Kt Molina MD at OR [facility] Left: Eye BAUSCH & LOMB 04/23/2021 [id number] / [id number] / [id number] Lens Intraoc 16.0 - [id number] - [id number] Implanted:Qty: 1 on 12/16/2016 by Kt Molina MD at OR [facility] Right: Eye BAUSCH & LOMB 04/23/2021 [id number] / [id number] / [id number] Vectris 1x8 Compact Trial Screening Implanted:Qty: 1 on 05/19/2023 by Dimas Powers DO at OR [facility] Right: Back [employer] : NEUROLOGIC PAIN 02/11/2027 [id number] / / [id number] documented as of this encounter Visit Diagnoses Diagnosis Preop examination Preoperative examination, unspecified documented in this encounter Advance Directives Documents on File Type Date Recorded 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 No Full Code 11/07/2009 9:32 PM 11/12/2009 9:58 PM This order reflects the patients wishes and were consensually agreed upon. Question Answer Comments Discussion of Advance Directives occurred with: Not Discussed Care Teams Multimedia Authoring Specialist Relationship Specialty Start Date End Date Saritha Bishop DO [address] [place] [address] PCP - General Family Medicine 05/30/11 documented as of this encounter
--- OUTSIDE RECORDS SUMMARY | 2023-07-06 21:14 | External Medical Summary | Summary of Care ---
Author Name Unknown Organization [facility] Address [address] [facility] [address] Phone [phone] Care Team Providers Care Betting Clerk Name Role Phone Saritha Bishop DO Primary Care Provider Reason for Visit * Reason Onset Date Comments Other 07/01/2023 Encounter Details Date Type Department Care Team (Late st Contact Info) Description 07/01/2023 Telephone Gastroenterology, [facility] [address] [place] [address] Yuki Horton MD [address] [place] [address] Other Allergies Active Allergy Reactions Criticality Noted [...] mg by mouth daily. 0 09/04/2020 Active C[place]-3 1000 MG Oral Capsule Take by mouth. [...] mRNA, LNP-s, No Pre serve, 2-Dose Series (Good Works Now) 05/18/2021,10/04/2020,09/06/2020 Pneumococcal Conjugate Vacc, 13 Valent (Prevnar) [...] Bai RN - 07/01/2023 4:39 PM EST [place] plan built and routed for signature. Prior auth not needed for venofer. Can schedule once beacon plan is signed. * Telephone Encounter - Concepcion Zavaleta RN - 07/01/2023 4:27 PM EST [facility] are you able to help arrange [...] 11:00 AM EST Telemedicine Interventional Pain Center, [facility] 132 [facility] [place] [address] Dimas Powers, DO 132 [facility] [place] [address] 09/23/2023 11:20 AM EST Office Visit Nephrology, [address] [address] Alex Olivares MD [address] [place] [address] 09/30/2023 2:00 PM EST Nurse Only Ancillary [facility] [address] [place] [address] [place], Nurse Annual Wellness [facility] [place] [address] 11/14/2023 2:00 PM EDT Office Visit Hematology/Oncology [facility] [address] [place] [address] Amauri Gustafson MD 200 [facility] [place] [address] 11/28/2023 3:00 PM EDT Office Visit Family Practice [facility] [address] [place] [address] Saritha Bishop, DO 200 [facility] [place] [address] 04/19/2024 11:00 AM EDT Imaging Radiology [facility] 1st [facility] [address] [place] [address] Scheduled Procedures Name Priority Associated Diagnoses Date/Ti [...] Screening 09/28/2023 09/27/2022 CKD PHOS USE SMARTSET 05140 11/02/2023 04, 10/14/2021, 03/04/2020, Additional history exists TSH 11/02/2023 11/01/2022, 08/2021, 10/20/2020, Additional history exists Diabetic Eye Exam 11/29/2023 11/28/2022, , 12/10/2020, Additional history exists HbA1c 12/21/2023 06/22/2023, 10/23, 07/27/2022, Additional history exists GFR 12/30/2023 06/30/2023, 04/24, 03/22/2023, Additional history exists Albumin/Creatinine Ratio 05/25/2024 023, 04/26/2022, 10/27/2020, Additional history exists CKD HGB USE SMARTSET 54430 06/30/202406/30, 06/24/2023, 06/24/2023, Additional history exists DTaP,Tdap,and [...] this encounter Medical Devices Implanted Type Area Web Application Tester Device Identifier Shelf Expiration Date Model / Serial / Lot Lens Intraoc 16.0 - [id number] - [id number] Implanted:Qty: 1 on 11/30/2016 by Kt Molina MD at OR [facility] Left: Eye BAUSCH & LOMB 04/23/2021 [id number] / [id number] / [id number] Lens Intraoc 16.0 - [id number] - [id number] Implanted:Qty: 1 on 12/16/2016 by Kt Molina MD at OR [facility] Right: Eye BAUSCH & LOMB 04/23/2021 [id number] / [id number] / [id number] Vectris 1x8 Compact Trial Screening Implanted:Qty: 1 on 05/19/2023 by Dimas Powers DO at OR [facility] Right: Back [employer] : NEUROLOGIC PAIN 02/11/2027 [id number] / / [id number] documented as of this encounter Advance Directives Documents on File Type Date Recorded Patient Ui Designer Expl anation Advance Directives and Living Will 04/22/2004 Latest Code Status on File Code Status Date Activated Date Inactivated Comments Full Code 12/16/2016 10:15 AM 12/16/2016 4:25 PM Thi s order reflects the patients wishes and were [...] the patient have Health Care Power of Senior Credit Analyst? No Full Code 11/07/2009 9:32 PM 11/12/2009 9:58 PM This order reflects the patients wishes and were consensually agreed upon. Question Answer Comments Discussion of Advance Directives occurred with: Not Discussed Care Teams Betting Clerk Relationship Specialty Start Date End Date Saritha Bishop DO [address] [place] [address] PCP - General Family Medicine 05/30/11 documented as of this encounter
--- OUTSIDE RECORDS SUMMARY | 2023-07-06 21:14 | External Medical Summary | Summary of Care ---
Author Name Unknown Organization [facility] Address [address] [facility] [place] [address] Phone [phone] Care Team Providers Care Heel Burnisher Name Role Phone Dario Saritha Price DO Primary Care Provider Reason for Visit * Reason Onset Date Comments Appointment 06/27/2023 MRI Encounter Details Date Type Department Care Team (Late st Contact Info) Description 06/27/[address] [facility] [place] [id number] Alisia Santa, RT (R) Appointment (/MRI) Allergies Active Allergy Reactions Criticality Noted Date Comments Metformin 07/29/2022 Muscle Cramping Metoclopramide Hcl 01/15/2008 Mental changes Sulfa Antibiotics 05/18/2001 hives, welts all over body documented as of this encounter (statuses as of 06/27/2023) Medications Medication Sig Dispensed Refills Start Date End Date Status EXCEDRIN EXTRA STRENGTH 250-250-65 MG PO TABS take 1-2 tablets by mouth as needed 0 12/14/2012 Active Nutritional Supplements (ENSURE) Take by mouth 2 times a day. 0 Active Multiple Vitamin (MULTI-DAY) TabletIndications:se nior vitamin Take 1 Tab by mouth daily. Indications: senior vitamin 0 Active Magnesium Malate 1250 (141.7 Mg) MG Oral Tablet Take 800 mg by mouth daily. 0 09/04/2020 Active Holland-3 1000 MG Oral Capsule Take by mouth. 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 EXCEPT TAKE ONE TABLET ON THURSDAYS AND SUNDAYS 100 Tablet 1 03/03/2023 Active Pyridostigmine [place] 60 MG Oral Tablet (Mestinon) 1/2 tab [...] Active traMADol HCl 50 MG Oral Tablet (Ultram)Indications: Lumbar back pain with radiculopathy affecting left lower extremity TAKE ONE TABLET BY MOUTH EVERY EIGHT HOURS NEEDED FOR SEVERE PAIN 150 Tablet 0 06/15/2023 12/15/2023 Active Cyanocobalamin 1000 MCG/ML Injection Solution (Cyanocobalamin)Jenny cations:Other iron deficiency anemia Give 1000mcg IM once a week x3, then monthly thereafter 4 mL 0 06/23/2023 Active documented as of this encounter (statuses as of 06/27/2023) Active Problems Problem Noted Date Diagnosed Date [...] as of this encounter (statuses as of 06/27/2023) Resolved Problems Problem Noted Date Diagnosed Date [...] as of this encounter (statuses as of 06/27/2023) Immunizations Name Administration Dates Next Due COVID-19 [...] encounter Miscellaneous Notes * Telephone Encounter - Alisia Santa RT (R) - 06/27/2023 11:21 AM EST Name: Gina Brock Do you have any of the following: Pacemaker, stents, heart valves, aneurysm clips? No-patient had temporary stimulator placed but had entire system removed she states. Will look into. Have you ever worked with metal or have you ever gotten metal in your eyes? No Have you had a colonoscopy in the last 30 days? No On dialysis? No Do you have any dermals or body piercing's? No Do you wear an insulin pump or diabetic monitor? No No new tattoos Knows to arrive at [address] (R) documented in this encounter Plan of Treatment Upcoming Encounters Date Type Department Care Team (Late st Contact Info) Description 06/30/2023 1:45 PM EST Imaging Radiology [facility] 1st [facility] 132 [facility] [place] [address] 06/30/2023 3:00 PM EST Office Visit Family Practice [facility] 200 [facility] [place] [address] Saritha Bishop DO 200 [facility] [place] [address] 08/09/2023 11:00 AM EST Telemedicine Interventional Pain Center, [facility] 132 [facility] [place] [address] Dimas Powers DO [address] [place] [address] 09/23/2023 11:20 AM EST Office Visit Nephrology, [address], [place] [address] Alex Olivares MD [address] [place] [address] 09/30/2023 2:00 PM EST Nurse Only Ancillary [facility] [address] [place] [address] [place], Nurse Annual Wellness [facility] 200 [facility] [place] [address] 11/14/2023 2:00 PM EDT Office Visit Hematology/Oncology [facility] [address] [place] [address] Amauri Gustafson MD 200 [facility] [place] [address] 11/28/2023 3:00 PM EDT Office Visit Family Practice [facility] [address] [place] [address] Saritha Bishop DO 200 [facility] [place] [address] 04/19/2024 11:00 AM EDT Imaging Radiology [address], [facility] [address] [place] [address] Scheduled Procedures Name Priority Associated Diagnoses Date/Ti [...] Screening 09/28/2023 09/27/2022 CKD PHOS USE SMARTSET 12178 11/02/2023 04/1 , 10/14/2021, 03/04/2020, Additional history exists TSH 11/02/2023 11/01/2022, 050 08/2021, 10/20/2020, Additional history exists GFR 11/03/2023 05/04/2023, 02/23, 12/06/2022, Additional history exists Diabetic Eye Exam 11/29/2023 11/28/2022, , 12/10/2020, Additional history exists HbA1c 12/21/2023 06/22/2023, 10/23, 07/27/2022, Additional history exists Albumin/Creatinine Ratio 05/25/2024 023, 04/26/2022, 10/27/2020, Additional history exists CKD HGB USE SMARTSET 64818 06/24/202406/24, 06/24/2023, 05/04/2023, Additional history exists DTaP,Tdap,and [...] this encounter Medical Devices Implanted Type Area Labor Training Manager Device Identifier Shelf Expiration Date Model / Serial / Lot Lens Intraoc 16.0 - [id number] - [id number] Implanted:Qty: 1 on 11/30/2016 by Kt Molina MD at OR [facility] Left: Eye BAUSCH & LOMB 04/23/2021 [id number] / [id number] / [id number] Lens Intraoc 16.0 - [id number] - [id number] Implanted:Qty: 1 on 12/16/2016 by Kt Molina MD at OR [facility] Right: Eye BAUSCH & LOMB 04/23/2021 [id number] / [id number] / [id number] Vectris 1x8 Compact Trial Screening Implanted:Qty: 1 on 05/19/2023 by Dimas Powers DO at OR [facility] Right: Back [employer] : NEUROLOGIC PAIN 02/11/2027 [id number] / / [id number] documented as of this encounter Advance Directives Documents on File Type Date Recorded 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 No Full Code 11/07/2009 9:32 PM 11/12/2009 9:58 PM This order reflects the patients wishes and were consensually agreed upon. Question Answer Comments Discussion of Advance Directives occurred with: Not Discussed Care Teams Heel Burnisher Relationship Specialty Start Date End Date Saritha Bishop DO [address] [place] [address] PCP - General Family Medicine 05/30/11 documented as of this encounter
--- OUTSIDE RECORDS SUMMARY | 2023-07-06 21:14 | External Medical Summary | Summary of Care ---
Author Name Unknown Organization [facility] Address [address] [place] [address] Phone [phone] Care Team Providers Care Lambskin Trimmer Name Role Phone Saritha Bishop DO Primary Care Provider Reason for Visit * Reason Onset Date Comments Test Results 06/21/2023 Encounter Details Date Type Department Care Team (Late st Contact Info) Description 06/21/2023 Telephone Family Practice [facility] 200 [facility] [place] [address] Saritha Bishop DO 200 [facility] [place] [address] Test Results Allergies Active Allergy Reactions Criticality [...] mg by mouth daily. 0 09/04/2020 Active [place]-3 1000 MG Oral Capsule Take by mouth. [...] SUNDAYS 100 Tablet 1 03/03/2023 Active Pyridostigmine Coffey 60 MG Oral Tablet (Mestinon) 1/2 tab [...] mRNA, LNP-s, No Pre serve, 2-Dose Series (Extenda-Dent) 05/18/2021,10/04/2020,09/06/2020 Pneumococcal Conjugate Vacc, 13 Valent (Prevnar) [...] (but will get first injection here tomorrow). [place] plan for B12 built and routed for [...] she still should come in. Please advise: [phone] * Telephone Encounter - Pina Bai RN [...] if needed. Patient agreeable, will go to [facility]. Called [facility] to make them aware patient is coming, spoke to Jocelynn Brasher. * Telephone Encounter - Pina Bai RN - 06/22/2023 1:51 PM EST [place] plan built and routed for signature. Waiting [...] to have a permanent stimulator placed at [facility]. Advised her that we will follow up [...] there is anything else he suggests. Called [facility] and was transferred to pre-admission testing. Left [...] him. Blood workup done on 06/13/2023 at [facility]: -WBC 9300, H&H of 7.2/20.7, Platelet count of 302241, MCV of 96.7. -BUN/Creat: 40/1.1. Calcium 8.1 [...] 06/21/2023 3:26 PM EST Linda with [facility] called in regards to the patient's pre op labs coming back. She said that her Hemoglobin was 7.2 and her hematocrit was 23.7. The patient has an appt with Dr. Herring on 06/28/2023 for a pre op appt but the PA from [facility] wanted us to be aware of thelab results before then. documented in this encounter Plan of Treatment Upcoming Encounters Date Type Department Care Team (Late st Contact Info) Description 06/30/2023 1:45 PM EST Imaging Radiology [address] 132 [facility] [place] [address] 06/30/2023 3:00 PM EST Office Visit Family Practice [facility] [address] [place] [address] Saritha Bishop, DO [address] [place] [address] 08/09/2023 11:00 AM EST Telemedicine Interventional Pain Center, [facility] 132 [facility] [place] [address] Dimas Powers, DO 132 [facility] [place] [phone] 09/23/2023 11:20 AM EST Office Visit Nephrology, [address] [phone] Alex Olivares MD [address] [place] [phone] 09/30/2023 2:00 PM EST Nurse Only Ancillary [facility] [place] [address] [place] [address] [place], Nurse Annual Wellness [facility] [address] [place] [address] 11/14/2023 2:00 PM EDT Office Visit Hematology/Oncology [facility] 200 [facility] [place] [address] Amauri Gustafson MD 200 [place] [address] 11/28/2023 3:00 PM EDT Office Visit Family Practice [facility] [place] 200 [facility] [place] [address] Saritha Bishop DO 200 [facility] [place] [address] 04/19/2024 11:00 AM EDT Imaging Radiology [address] 132 [facility] [place] [address] Scheduled Procedures Name Priority Associated Diagnoses Date/Ti [...] Screening 09/28/2023 09/27/2022 CKD PHOS USE SMARTSET 07631 11/02/2023 04/, 10/14/2021, 03/04/2020, Additional history exists TSH 11/02/2023 11/01/2022, 0508/2021, 10/20/2020, Additional history exists GFR 11/03/2023 05/04/2023, 02/23, 12/06/2022, Additional history exists Diabetic Eye Exam 11/29/2023 11/28/2022, , 12/10/2020, Additional history exists HbA1c 12/21/2023 06/22/2023, 10/23, 07/27/2022, Additional history exists Albumin/Creatinine Ratio 05/25/2024 023, 04/26/2022, 10/27/2020, Additional history exists CKD HGB USE SMARTSET 82390 06/24/202406/24, 06/24/2023, 05/04/2023, Additional history exists DTaP,Tdap,and [...] this encounter Medical Devices Implanted Type Area Director Of Occupational Therapy Device Identifier Shelf Expiration Date Model / Serial / Lot Lens Intraoc 16.0 - [id number] - [id number] Implanted:Qty: 1 on 11/30/2016 by Kt Molina MD at OR [facility] Left: Eye BAUSCH & LOMB 04/23/2021 [id number] / [id number] / [id number] Lens Intraoc 16.0 - [id number] - [id number] Implanted:Qty: 1 on 12/16/2016 by Kt Molina MD at OR [facility] Right: Eye BAUSCH & LOMB 04/23/2021 [id number] / [id number] / [id number] Vectris 1x8 Compact Trial Screening Implanted:Qty: 1 on 05/19/2023 by Dimas Powers DO at OR [facility] Right: Back [employer] : NEUROLOGIC PAIN 02/11/2027 [id number] / / [id number] documented as of this encounter Visit Diagnoses Diagnosis Other iron deficiency anemia- Primary documented in this encounter Advance Directives Documents on File Type Date Recorded 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 No Full Code 11/07/2009 9:32 PM 11/12/2009 9:58 PM This order reflects the patients wishes and were consensually agreed upon. Question Answer Comments Discussion of Advance Directives occurred with: Not Discussed Care Teams Lambskin Trimmer Relationship Specialty Start Date End Date Saritha Bishop DO [address] [place] [address] PCP - General Family Medicine 05/30/11 documented as of this encounter
--- OUTSIDE RECORDS SUMMARY | 2023-07-06 21:14 | External Medical Summary ---
Author Name Unknown Address Unknown Organization K09:[facility] [address] [place] [address] Laboratory Report Ordering Provider Test Date Status SATNAM DEL TORO 06/30/2023 15:43:44 Final Observation Date Value Abnormality Reference (Units ) Status BUN 06/30/2023 15:43:44 24 Above high normal 6-20 (mg/dL) Final Creatinine 06/30/2023 15:43:44 1.0 0.5-1.0 (mg/dL) Final Glomerular filtration rate/1.73 sq M.predicted [Volume Rate/Area] in Serum, Plasma or Blood by Creatinine-based formula (CKD-EPI) 06/30/2023 15:43:44 57 Below low normal >=60 (mL/min) Final eGFR is calculated based on the CKD-EPI 2020 equation SODIUM 06/30/2023 15:43:44 141 135-146 (m mol/L) Final Potassium 06/30/2023 15:43:44 4.6 3.5-5.1 (m mol/L) Final Cl 06/30/2023 15:43:44 108 Above high normal 98 -107 (mmol/L) Final CO2 06/30/2023 15:43:44 24 22-32 (mmo l/L) Final Anion gap 06/30/2023 15:43:44 9 7-15 (mmol /L) Final Glucose 06/30/2023 15:43:44 175 Above high normal 70 -120 (mg/dL) Final Albumin 06/30/2023 15:43:44 3.2 Below low normal 3.8 -5.0 (g/dL) Final AST (Aspartate aminotransferase) 06/30/2023 15:43:44 24 10-35 (U/L) Fin al Alk Phos 06/30/2023 15:43:44 58 35-130 (U/ L) Final Bilirubin, Total 06/30/2023 15:43:44 <0.2 <=1 .2 (mg/dL) Final Calcium 06/30/2023 15:43:44 8.4 8.4-10.2 ( mg/dL) Final Protein 06/30/2023 15:43:44 4.7 Below low normal 6.0 -8.3 (g/dL) Final ALT (Alanine aminotransferase) 06/30/2023 15:43:44 29 10-35 (U/L) Carlos lambert Performing Location [facility] [address] [place] [address]
--- OUTSIDE RECORDS SUMMARY | 2023-07-06 21:14 | External Medical Summary | Summary of Care ---
Author Name Unknown Organization [facility] Address [address] [place] [facility] [place] [address] Phone [phone] Care Team Providers Care Lathe Sander Name Role Phone Saritha Bishop DO Primary Care Provider Reason for Referral * Precert (Within 10 days (routine)) - Authorized Specialty Diagnoses / Procedures Referred By Contlaura obando Referred To Contact Radiology Diagnoses Iron deficiency anemia due to chronic blood loss Procedures VIDEO CAPSULE ENDOSCOPY Yuki Horton MD [address] [place] [address] Referral ID Status Reason Start Date Expiration Date V isits Requested Visits Authorized [id number] Authorized Precert 07/01/2023 10/31/[id number] Encounter Details Date Type Department Care Team (Late st Contact Info) Description 07/01/2023 2:00 PM EST Telemedicine Gastroenterology, [facility] [address] [place] [address] Yuki Horton MD [address] [place] [address] Iron deficiency anemia due to chronic blood [...] mg by mouth daily. 0 09/04/2020 Active [place]-3 1000 MG Oral Capsule Take by mouth. [...] as of this encounter Progress Notes * Yuki Horton MD - 07/01/2023 3:11 [...] 11:00 AM EST Telemedicine Interventional Pain Center, [facility] [place] [address] Dimas Powers, DO 132 [facility] [place] [address] 09/23/2023 11:20 AM EST Office Visit Nephrology, [address] [address] Alex Olivares MD [address] [place] [address] 09/30/2023 2:00 PM EST Nurse Only Ancillary [facility] [address] [place] [address] [place], Nurse Annual Wellness [facility] [address] [facility] [place] [address] 11/14/2023 2:00 PM EDT Office Visit Hematology/Oncology [facility] [place] [address] [place] [address] Amauri Gustafson MD [address] [facility] [place] [address] 11/28/2023 3:00 PM EDT Office Visit Family Practice [facility] [address] [place] [address] Saritha Bishop, [address] [facility] [place] [address] 04/19/2024 11:00 AM EDT Imaging Radiology [facility] 1st [facility] [address] [place] [address] Scheduled Orders Name Type Priority Associated Diagnoses [...] Screening 09/28/2023 09/27/2022 CKD PHOS USE SMARTSET 86653 11/02/202310/23, 10/14/2021, 03/04/2020, Additional history exists TSH 11/02/2023 11/01/2022, 05/0 08/2021, 10/20/2020, Additional history exists Diabetic Eye Exam 11/29/2023 11/28/2022, , 12/10/2020, Additional history exists HbA1c 12/21/2023 06/22/2023, 10/23, 07/27/2022, Additional history exists GFR 12/30/2023 06/30/2023, 04/24, 03/22/2023, Additional history exists Albumin/Creatinine Ratio 05/25/202405/25/2 023, 04/26/2022, 10/27/2020, Additional history exists CKD HGB USE SMARTSET 98806 06/30/202406/30, 06/24/2023, 06/24/2023, Additional history exists DTaP,Tdap,and [...] this encounter Medical Devices Implanted Type Area Aircraft Systems Technician Device Identifier Shelf Expiration Date Model / Serial / Lot Lens Intraoc 16.0 - [id number] - [id number] Implanted:Qty: 1 on 11/30/2016 by Kt Molina MD at OR [facility] Left: Eye BAUSCH & LOMB 04/23/2021 [id number] / [id number] / [id number] Lens Intraoc 16.0 - [id number] - [id number] Implanted:Qty: 1 on 12/16/2016 by Kt Molina MD at OR [facility] Right: Eye BAUSCH & LOMB 04/23/2021 [id number] / [id number] / [id number] Vectris 1x8 Compact Trial Screening Implanted:Qty: 1 on 05/19/2023 by Dimas Powers DO at OR [facility] Right: Back [employer] : NEUROLOGIC PAIN 02/11/2027 [id number] / / [id number] documented as of this encounter Visit Diagnoses Diagnosis Iron deficiency anemia due to chronic blood loss- Primary Iron deficiency anemia secondary to blood loss (chronic) documented in this encounter Advance Directives Documents on File Type Date Recorded Patient Can Dryer Expl anation Advance Directives and Living Will [...] the patient have Health Care Power of Rn Integrity? No Full Code 11/07/2009 9:32 PM 11/12/2009 9:58 PM This order reflects the patients wishes and were consensually agreed upon. Question Answer Comments Discussion of Advance Directives occurred with: Not Discussed Care Teams Lathe Sander Relationship Specialty Start Date End Date Saritha Bishop DO [address] [place] [address] PCP - General Family Medicine 05/30/11 documented as of this encounter
--- OUTSIDE RECORDS SUMMARY | 2023-07-06 21:15 | External Medical Summary ---
Author Name Unknown Address Unknown Organization K01:[facility] [place] [address] [place] [address] Laboratory Report Ordering Provider Test Date Status MORGAN MOYA 06/24/2023 14:14:22 Final Observation Date Value Abnormality Reference (Units ) Status Erythrocyte sedimentation rate by Photometric method 06/24/2023 14:14:22 2 <30 (mm/hour) Final Performing Location [facility] [place] [address] [place] [address]
--- OUTSIDE RECORDS SUMMARY | 2023-07-06 21:15 | External Medical Summary ---
Author Name Unknown Address Unknown Organization : Laboratory Report Ordering Provider Test Date Status MORGAN MOYA 06/24/2023 14:14:22 Final Observation Date Value Abnormality Reference (Units ) Status ACETYLCHOLINE REC BLOC AB 06/24/2023 14:14:22 <15 <15 Final Units: % Inhibition
Test performed by [facility]
[address] [facility]
[place] [address]

Gold Letterer: Renetta Cao MD,PHD,HEATHER
Test Reported by [facility],
[facility] [facility] [place],
[address] [place], [place]
Bean Paulino M.D., Ph.D., Director of Laboratories
, [place] [id number] Performing Location
--- OUTSIDE RECORDS SUMMARY | 2023-07-06 21:15 | External Medical Summary ---
Author Name Unknown Address Unknown Organization : Laboratory Report Ordering Provider Test Date Status MORGAN MOYA 06/24/2023 14:14:22 Final Observation Date Value Abnormality Reference (Units ) Status Voltage-gated calcium channel P/Q type binding Ab [Moles/volume] in Serum 06/24/2023 14:14:22 SEE BELOW Final TESTS--------- ----RESULTS--------UNITS--REF. RANGE---
INTERPRETATION
NEGATIVE
This test did not detect abnormal levels of anti-VGCC
antibodies.
TECHNICAL RESULTS

Int erpretive Result Table

INTER PRETIVE RESULT: Negative
TEST: anti-VGCC
TECHNICAL RESULT: <100
REFERENCE RANGE: Negative <=120, Borderline 121-200,
Positive >200 (pmol/L)

--
COMMENTS
Comm ents: This result does not exclude a diagnosis of an
autoimmune etiology for the neurological symptoms associated
with paraneoplastic disorder.
Recommendations: Health care providers, please contact the
[facility] Client Services Department at
if you wish to speak with a clinical
senior health consultant regarding this test result.
Other testing available: [facility] recommends
additional testing, if not already performed. [facility] currently offers the following antibody tests:
anti-Hu, anti-Yo, anti-Zic4, anti-CV2, anti-Ma1, anti-Ta,
anti-Ri, anti-Recoverin, anti-VGKC, anti-Amphiphysin,
anti-G-AChR, anti-NMDA, anti-GAD65, anti-LGI1, and
anti-CASP. Please contact the [facility] Client
Services Department or visit [facility] for
information regarding additional testing that may be
appropriate based on this individual's clinical
presentation.
Background information: Paraneoplastic neurological
syndromes or disorders (PNS or PND) are rare immune- mediated
disorders resulting from the damage to the nervous system
due to remote effects of a tumor (1, 2). PND of the central
nervous system may occur in association with either
onconeural antibodies directed against intracellular
antigens, or antibodies targeted against neuronal surface
antigens (1, 3).
Clinical features of PND may include ataxia, limbic or
brainstem encephalitis, sensory neuropathy, subacute
cerebellar degeneration, dizziness, nystagmus, dysp hagia,
dysarthria, loss of muscle tone, loss of memory, vision
problems, sleep disturbances, dementia, seizures, and/or
sensory loss in the limbs (4). In approximately 60% of PND
cases, neuropathic symptoms precede a tumor diagnosis (1).
Some of the tumors related to PND include small cell lung
cancer, ovarian teratoma and carcinoma, thymoma, lymphoma,
breast cancer, and/or testicular cancer (2). PND may also
include Lambert-Eaton myasthenic syndrome (LEMS), stiff
person syndrome, encephalomyelitis, myasthenia gravis,
neuromyotonia, and opsoclonus-myoclonus (4). However, these
disorders can also occur in individuals without underlying
cancer.
VGCC antibodies are highly associated with Lambert- Eaton
myasthenic syndrome (LEMS), a neuromuscular disorder
characterized by muscle weakness, sometimes accompanied by
autonomic nervous system dysfunction or cerebellar ataxia
(5, 6, 7). Less commonly, VGCC antibodies may be associated
with paraneoplastic cerebellar degeneration (PCD). The main
tumor associated with positive VGCC antibody is small-cell
lung carcinoma (SCLC). SCLC is found in 50 - 60% of adult
patients with LEMS. Other cancers associated with VGCC
antibodies include extrapulmonary small cell carcinoma,
testicular germ-cell, ovarian, or breast cancers. Since
neurological symptoms often precede the detection of an
occult malignancy, patient monitoring is recommended, and a
search for occult cancer should be considered.
METHODS
Detection of antibodies was performed by Radioimmunoassay
(KAY) methodology.
Limitations of analysis: Reagent effectiveness may affect
the signal intensity of the response. Although rare, false
positive or false negative results may occur. All results
should be interpreted in the context of clinical findings,
relevant history, and other laboratory data.
REFERENCES
1. SATINDER Santana, et al. (2006) Semin Oncol 33: 270-98. (PMID:
74036560)
2. MARY GRACE Velázquez, et al. (2011) Eur J Neurol 18: 19- e3.
(PMID: [id number])
3. Selene Zuniga et al. (2012) J Neurol Neurosurg Psychiatry
83: 638-45. (PMID: [id number])
4. MR John, et al. (2010) Oncologist 15: 603-17.
(PMID: [id number])
5. José Miguel Cano et al. (2008) Lancet Neurol 7: 327-40. (PMID:
59988580)
6. José Miguel Hernandez et al. (2007) Orphanet J Rare Dis 2: 22.
(PMID: 20933272)
7. Gemma Gunter, et al. (2008) Neurology 71: 930-6. (PMID:
68356289)
This test was developed and its analytical performance
characteristics have been determined by [facility].
It has not been cleared or approved by the U.S. Food and
Drug Administration. This assay has been validated pursuant
to the CLIA regulations and is used for clinical purposes.
Laboratory oversight provided by Padmaja Santana M.D.,
Ph.D., CLIA license [place], [facility] (CLIA#
[id number])
Testing performed at:
[facility] [address] [place] [address]
Results Received 07/02/23
Reference lab accession: [id number]
Test performed by [facility]
[address] [place] [address]
[address] [place] [address]

Medical Records Tech: Padmaja Santana M.D., Ph.D. Performing Location
--- OUTSIDE RECORDS SUMMARY | 2023-07-06 21:15 | External Medical Summary | Summary of Care ---
Author Name Unknown Organization [facility] Address [address] [place] [address] Phone [phone] Care Team Providers Care Nut Cracker Name Role Phone Saritha Bishop DO Primary Care Provider Reason for Visit * Reason Comments Treatment * Episode Based Medications (Routine) - Authorized Specialty Diagnoses / Procedures Referred By Contac t Referred To Contact Diagnoses Other iron deficiency anemias Procedures MI INJ. FE DERISOMALTOSE 10 MG Richmond Carvalho MD [address] [place] [address] Anc Hem/Onc [address] [address] Referral ID Status Reason Start Date Expiration Date V isits Requested Visits Authorized [id number] Authorized 06/22/2023 06/22/2024 [id number] Encounter Details Date Type Department Care Team (Latest Contact Info) Description 06/24/2023 12:00 PM EST Hem/Onc Treatment Hematology/Oncology Treatment, [address] [address] [place], Chair 9 Hem Onc [address] [address] Other iron deficiency anemias*; B12 deficiency Allergies Active Allergy Reactions Criticality Noted Date Comments Metformin 07/29/2022 Muscle Cramping Metoclopramide Hcl 01/15/2008 Mental changes Sulfa Antibiotics 05/18/2001 hives, welts all over body documented as of this encounter (statuses as of 06/24/2023) Medications Medication Sig Dispensed Refills Start Date [...] mg by mouth daily. 0 09/04/2020 Active Fulton-3 1000 MG Oral Capsule Take by mouth. [...] SUNDAYS 100 Tablet 1 03/03/2023 Active Pyridostigmine Rosalia 60 MG Oral Tablet (Mestinon) 1/2 tab [...] as of this encounter (statuses as of 06/24/2023) Active Problems Problem Noted Date Diagnosed Date [...] as of this encounter (statuses as of 06/24/2023) Resolved Problems Problem Noted Date Diagnosed Date [...] as of this encounter (statuses as of 06/24/2023) Immunizations Name Administration Dates Next Due COVID-19 mRNA, LNP-s, No Pre serve, 2-Dose Series (NextUser) 05/18/2021,10/04/2020,09/06/2020 Pneumococcal Conjugate Vacc, 13 Valent (Prevnar) [...] Team (Late st Contact Info) Description 06/24/2023 2:50 PM EST Laboratory Laboratory [facility] [address] [place] [address] [phone] [place], Lab [facility] [address] [facility] [place] [address] Iron deficiency anemia due to chronic blood loss 06/28/2023 6:20 PM EST Office Visit [facility] [address] [place] [address] Karol Herring MD [address] [place] [place] [address] 06/30/2023 3:00 PM EST Office Visit [facility] [address] [place] [address] Saritha Bishop DO [address] [place] [place] [address] 07/21/2023 12:30 PM EST Imaging Radiology [address] [facility] [address] 08/09/2023 11:00 AM EST Telemedicine [facility], [facility] [address] [facility] [place] [address] Dimas Powers, DO [address] [facility] [place] [address] 09/23/2023 11:20 AM EST Office Visit Nephrology, [address] [address] Alex Olivares MD [address] [place] [address] 09/30/2023 2:00 PM EST Nurse Only Ancillary [facility] [place] [address] [place], [place] [address] [place], Nurse Annual Wellness [facility] [address] [place] [address] 11/14/2023 2:00 PM EDT Office Visit Hematology/Oncology [facility] [place] [address] [place] [address] Amauri Gustafson MD [address] [place] [address] 11/28/2023 3:00 PM EDT Office Visit Family Practice [facility] [place] [address] [place], [place] [address] Saritha Bishop DO [address] [place] [address] 04/19/2024 11:00 AM EDT Imaging Radiology [address] [place] [address] Scheduled Procedures Name Priority Associated Diagnoses Date/Ti [...] Screening 09/28/2023 09/27/2022 CKD PHOS USE SMARTSET 62583 11/02/2023 04/1 , 10/14/2021, 03/04/2020, Additional history exists TSH 11/02/2023 11/01/2022, 05/0 08/2021, 10/20/2020, Additional history exists GFR 11/03/2023 05/04/2023, 08/03/2023, 12/06/2022, Additional history exists Diabetic Eye Exam 11/29/2023 11/28/2022, , 12/10/2020, Additional history exists HbA1c 12/21/2023 06/22/2023, 04, 07/27/2022, Additional history exists CKD HGB USE SMARTSET 52629 05/04/202405/04, 05/04/2023, 01/17/2023, Additional history exists Albumin/Creatinine [...] this encounter Medical Devices Implanted Type Area Infrastructure Project Manager Device Identifier Shelf Expiration Date Model / Serial / Lot Lens Intraoc 16.0 - [id number] - [id number] Implanted:Qty: 1 on 11/30/2016 by Kt Molina MD at [facility] Left: Eye [employer] 04/23/2021 [id number] / [id number] / [id number] Lens Intraoc 16.0 - [id number] - [id number] Implanted:Qty: 1 on 12/16/2016 by Kt Molina MD at [facility] Right: Eye [employer]OM[employer] 04/23/2021 [id number] / [id number] / [id number] Vectris 1x8 Compact Trial Screening Implanted:Qty: 1 on 05/19/2023 by Dimas Powers DO at [facility] Right: Back [employer] : NEUROLOGIC PAIN 02/11/2027 [id number] / / [id number] documented as of this encounter Visit Diagnoses Diagnosis Other iron deficiency anemias- Primary B12 deficiency 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) documented in this encounter Administered Medications Active Administered Medications - up to 3 most recent administrations Medication Order MAR Action Action Date Dose Rate Site diphenhydrAMINE (Benadryl) inj 50 mg 50 mg, IV Push, ONCE PRN Other, Hypersensitivity Reaction, Starting on Tue06/24/23 at 1224, Until 06/25/23 at 1223, For 24 hours EPINEPHrine 1 MG/ML inj 0.3 mg 0.3 mg, Intramuscular, ONCE PRN Other, Hypersensitivity Reaction or Anaphylaxis, Starting on Tue06/24/23 at 1224, Until 06/25/23 at 1223, For 24 hours Hydrocortisone Sod Suc (PF) (Solu-Cortef) inj 100 mg 100 mg, IV Push, ONCE PRN Other, Hypersensitivity Reaction, Starting on Tue06/24/23 at 1224, Until 06/25/23 at 1223, For 24 hours NSS infusion Intravenous, at 50 mL/hr, PRN, Starting on Tue06/24/23 at 1330, Until Discontinued, Maintenance line Start Infusion 06/24/2023 1:02 PM EST 50 mL/hr oxygen GAS Inhalation, OXYGEN, First dose on Tue06/24/23 at 1600, Until Discontinued, Device/Managed by: Low Flow Device, Goal SPO2 (%): 91-95, Starting Device: Nasal Cannula, Initial Flow Rate (LPM): 2, Lowest Support: Nasal Cannula: Flow 0-6 LPM. Titrate up/down by 1 LPM., Higher Support: Non-Rebreather (NRB) Mask: Minimum of 10 LPM. Titrate to maintain bag inflation., Titration Interval: Q2 minutes and as needed., Notify Provider: For sudden DECREASE in resting SPO2 to less than 85% and when escalating delivery device., Wean patient off Oxygen when the oxygen saturation is greater than or equal to 93% Inactive Administered Medications - up to 3 most recent administrations Medication Order MAR Action Action Date Dose Rate Site Ferric derisomaltose (Monoferric) 1,000 mg in NSS 250 mL ivpb 1,000 mg, IV Piggyback, ONCE, 1 dose, On Tue06/24/23 at 1300, Administer over 30 Minutes, DOSING GUIDELINES: For patient weight LESS THAN 50 kg: Dose 20 mg/kg For patient weight 50 Kg or greater: Dose 1000 mg Start Infusion 06/24/2023 1:02 PM EST 1,000 mg 500 mL/hr vitamin b-12 (Cyanocobalamin) inj 1,000 mcg 1,000 mcg, Intramuscular, ONCE, On Tue06/24/23 at 1315, For 1 dose Given 06/24/2023 12:47 PM EST 1,000 mcg Arm Left Upper documented in this encounter Advance Directives Documents on File Type Date Recorded Patient Endoscopy Tech Expl anation Advance Directives and Living Will [...] the patient have Health Care Power of Solution Specialist? No Full Code 11/07/2009 9:32 PM 11/12/2009 9:58 PM This order reflects the patients wishes and were consensually agreed upon. Question Answer Comments Discussion of Advance Directives occurred with: Not Discussed Care Teams Nut Cracker Relationship Specialty Start Date End Date Saritha Bishop DO [address] [place] [address] PCP - General Family Medicine 05/30/11 documented as of this encounter
--- OUTSIDE RECORDS SUMMARY | 2023-07-06 21:15 | External Medical Summary ---
Author Name Unknown Address Unknown Organization K09:[facility]ATORY [facility] [address] [place] [address] Laboratory Report Ordering Provider Test Date Status MYA PATTEN 06/24/2023 14:14:22 Final Observation Date Value Abnormality Reference (Units ) Status SYNC LEUKOCYTES IN BLOOD BY AUTOMATED COUNT 06/24/2023 14:14:22 7.06 4.00-10.80 (K/uL) Final Segs 06/24/2023 14:14:22 84.7 Above high normal 40.0-75.0 (%) Final Lymphs % 06/24/2023 14:14:22 13.5 Below low normal 18.0-42.0 (%) Final Monos 06/24/2023 14:14:22 1.6 1.0-11.0 (%) Final Eosinophils 06/24/2023 14:14:22 0.1 0.0-6.0 (%) Final Basos 06/24/2023 14:14:22 0.1 0.0-2.0 (%) Final Absolute Segs 06/24/2023 14:14:22 5.98 1.80-7.70 (K/uL) Final Lymphs, absolute 06/24/2023 14:14:22 0.95 Below low normal 1.00-4.80 (K/ul) Final Monos, Abs 06/24/2023 14:14:22 0.11 0.00-1.10 (K/uL) Final Eos, Abs 06/24/2023 14:14:22 0.01 0.00-0.70 (K/uL) Final Basos, Abs 06/24/2023 14:14:22 0.01 0.00-0.20 (K/uL) Final Performing Location [facility] [address] [place] [address]
--- OUTSIDE RECORDS SUMMARY | 2023-07-06 21:15 | External Medical Summary | Summary of Care ---
Author Name Unknown Organization [facility] Address [address] [place] [address] Phone [phone] Care Team Providers Care Paper Sheeter Name Role Phone Saritha Bishop DO Primary Care Provider Reason for Referral * Precert (Within 10 days (routine)) - Pending Review Specialty Diagnoses / Procedures Referred By Juliann obando Referred To Contact Radiology Diagnoses Binocular vision disorder with diplopia Ophthalmoplegia Chronic daily headache Procedures MRI BRAIN W WO CONTRAST Contreras Enriquez DO [address] [place] [address] Referral ID Status Reason Start Date Expiration Date V isits Requested Visits Authorized [id number] Pending Review 06/24/2023 999 999 Reason for Visit * Reason Comments Return Neuro Encounter Details Date Type Department Care Team (Late st Contact Info) Description 06/24/2023 11:20 AM EST Office Visit Neurology [facility] Flann[facility] [address] [place] [address] Contreras Enriquez DO [address] [place] [address] Binocular vision disorder with diplopia*; Ophthalmoplegia; Chronic daily headache; Esotropia of right eye; Carcinoma of breast metastatic to bone, left (HCC) Allergies Active Allergy Reactions Criticality Noted Date [...] mg by mouth daily. 0 09/04/2020 Active Myrtle Creek-3 1000 MG Oral Capsule Take by mouth. [...] SUNDAYS 100 Tablet 1 03/03/2023 Active Pyridostigmine Stanchfield 60 MG Oral Tablet (Mestinon) 1/2 tab [...] mRNA, LNP-s, No Pre serve, 2-Dose Series ([employer]) 05/18/2021,10/04/2020,09/06/2020 Pneumococcal Conjugate Vacc, 13 Valent (Prevnar) [...] Influenza, Split, I IV3, With Preserve, Inj 04/11/2015,04/06/2014,06/12/2012,10/0 09/2010,07/13/2010,04/23/2009,05/07/20 08 04/06/2015 Seasonal Influenza, Trivalen t, High [...] on file documented as of this encounter Last Filed Vital Signs Vital Sign Reading Time Taken Comments Blood Pressure 122/62 06/24/2023 11:08 AM EST Pulse 70 06/24/2023 11:08 AM EST Temperature 37.2 C (99 F) 06/24/2023 11:08 AM EST Respiratory Rate 16 06/24/2023 11:08 AM EST Oxygen Saturation 95% 06/24/2023 11:08 AM EST Inhaled Oxygen Concentration - - Weight 63.7 kg (140 lb 8 oz) 06/24/2023 11:08 AM EST Height - - Body Mass Index 22.68 05/19/2023 11:44 AM EDT documented in this encounter Progress Notes * Contreras Enriquez, - 06/24/2023 12:19 PM EST Progress Note - Neurology [address] [address] NAME: Gina Brock Date of : 1945 Date of Visit: 06/24/23 Chief Complaint: Chief Complaint Patient presents with Return Neuro Subjective: A 77 year old female with chronic binocular horizontal diplopia following with Ophthalmology presenting clinic for follow-up for diplopia. She has a history of metastatic breast cancer toher spine status post thoracic decompression. She has a daily headache which has been ongoing for anumber of years. Denies any significant positional change. She also has significant dry eye. Prismshave helped in the past for her double vision although not as much recently. She was recently diagnosed with a B12 deficiency in his scheduled for an infusion today. She does not have a clear understanding today of the reason for her double vision. She was given a trial of Mestinon although had adverse side effect from this medication. Previous acetylcholine receptor antibody was negative. She also underwent an EMG which was normal. HOME MEDICATIONS : Current Outpatient Medications Medication Sig Dispense Refill EXCEDRIN EXTRA STRENGTH 250-250-65 MG PO TABS take 1-2 tablets by mouth as needed Nutritional Supplements (ENSURE) Take by mouth 2 times a day. Multiple Vitamin (MULTI-DAY) Tablet Take 1 Tab by mouth daily. Indications: senior vitamin Magnesium Malate 1250 (141.7 Mg) MG Oral Tablet Take 800 mg by mouth daily. Myrtle Creek-3 1000 MG Oral Capsule Take by mouth. Restasis 0.05 % Ophthalmic Emulsion Clobetasol Propionate 0.05 % External Ointment (Temovate) Apply to vulva nightly x2 weeks, then 2x/week 30 g 6 Fluticasone Propionate 50 MCG/ACT Nasal Suspension (Flonase) ADMINISTER 2 SPRAYS INTO EACH NOSTRIL DAILY 48 g 1 Prazosin HCl 1 MG Oral Capsule (Minipress) TAKE ONE CAPSULE BY MOUTH EVERY DAY BEFORE BEDTIME 90 Capsule 3 Pantoprazole Sodium 40 MG Oral Tablet Delayed Release (Protonix) TAKE ONE TABLET BY MOUTH EVERY MORNING 90 Tablet 2 amLODIPine Besylate 5 MG Oral Tablet (Norvasc) TAKE ONE TABLET BY MOUTH EVERY MORNING 90 Tablet 3 Levothyroxine Sodium 50 MCG Oral Tablet (Levoxyl) TAKE ONE HALF TABLET BY MOUTH DAILY. EXCEPT TAKE ONE TABLET ON THURSDAYS AND SUNDAYS 100 Tablet 1 Pyridostigmine Stanchfield 60 MG Oral Tablet (Mestinon) 1/2 tab at bedtime x 5 days then increase to 1/2 tab twice daily x 5 days then 1/2 tab three times daily after 2 weeks on 1/2 tab Three times dailyincrease to 1 tab am 1/2 midday and 1/2 tab pm x 5 days then 1 tab am 1 tab midday 1/2 tab pm x 5 days then 1 tab three times daily 90 Tablet 2 rOPINIRole HCl ER 4 MG Oral Tablet Extended Release 24 Hour (Requip XL) TAKE ONE TABLET BY MOUTH EVERY DAY 90 Tablet 3 predniSONE 20 MG Oral Tablet (Deltasone) Take 1 Tablet by mouth in the morning. 30 Tablet 2 glipiZIDE ER 2.5 MG Oral Tablet Extended Release 24 Hour (glipiZIDE XL) Take 1 Tablet by mouth in the morning 30 minutes before a meal. 90 Tablet 3 traZODone HCl 50 MG Oral Tablet (Desyrel) TAKE ONE AND ONE-HALF TABLETS BY MOUTH AT BEDTIME 135 Tablet 3 traMADol HCl 50 MG Oral Tablet (Ultram) TAKE ONE TABLET BY MOUTH EVERY EIGHT HOURS NEEDED FOR SEVERE PAIN 150 Tablet 0 Cyanocobalamin 1000 MCG/ML Injection Solution (Cyanocobalamin) Give 1000mcg IM once a week x3, thenmonthly thereafter 4 mL 0 miSOPROStol 200 MCG Oral Tablet (Cytotec) Take 1 Tablet by mouth in the morning and 1 Tablet at noon and 1 Tablet in the evening and 1 Tablet before bedtime. (Patient not taking: Reported on 05/23/2023) 90 Tablet 3 No current facility-administered medications for this visit. Review of patient's allergies indicates: Allergen Reactions Metformin Muscle Cramping Reglan [Metoclopramide Hcl] Mental changes Sulfa Antibiotics hives, welts all over body PHYSICAL EXAMINATION: Vital Signs: BP 122/62 (BP Site: Right Arm, BP Position: Sitting, BP Cuff Size: Regular) | Pulse 70 | Temp 37.2 C (99 F) (Tympanic) | Resp 16 | Wt 63.7 kg (140 lb 8 oz) | SpO2 95% | BMI 22.68 kg/m | BSA 1.72 m EXAM: Constitutional: appearance normally developed, well nourished and non-obese Head and Face: normocephalic and atraumatic Eyes: normal lids, normal conjunctiva Neck: supple Respiratory: normal effort Cardiovascular: regular rhythm and normal pulses Abdomen: non distended Skin: no rashes, lesions, or ulcers noted Psychiatric: normal judgement and insight, normal mood and normal affect NEUROLOGIC EXAMINATION: Appearance: no acute distress Orientation: awake, alert and oriented x 3 Mental Status: alert Attention: normal Knowledge: appropriate Language: no aphasia Speech: no dysarthria Cranial Nerves: CN 2 - pupils are symmetric and around CN 3, 4, 6 - incomplete abduction of both eyes with a right easily trochlea at rest CN 5 - facial sensation intact CN 7 - no facial asymmetry CN 8 - intact hearing CN 9, 10 - palate symmetric CN 11 - good shoulder shrug CN 12 - tongue midline Gait: stable, no ataxia Coordination: no ataxia with finger to nose testing Sensory: intact to light touch Muscle Tone: normal Muscle exam: 5/5 throughout Reflexes: 2+ at the right knee, absent at the left knee, no ankle clonus, Marie sign is negative LABORATORY: Labs reviewed and pertinent findings are indicated below: Component Latest Ref Rng 06/22/2023 Iron 33 - 151 ug/dL 15 (L) Iron Binding Capacity 250 - 425 ug/dL 288 Transferrin Saturation Percent 15 - 55 % 5 (L) Hemoglobin A1C 4.0 - 5.6 % 7.2 (H) Estimated Average Glucose <126 mg/dL 160 (H) Ferritin 13 - 150 ng/mL 12 (L) Vitamin B12 232 - 1,245 pg/mL 228 (L) Folic Acid >4.5 ng/mL >20.0 Legend: (L) Low (H) High Review of prior Diagnostic Tests: EMG performed on 05/24/2023: Normal EMG of the left upper and lower extremity. 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 COMPARISON: MRI brain dated 11/13/2009 FINDINGS: There is symmetric atrophy and fatty replacement involving the extraocular muscles, most severely involving the inferior and lateral rectus muscles. No evidence of intraorbital mass lesion. The optic nerve sheaths slightly tortuous. Dental implants noted. Evidence of chronic right maxillary sinusitis. 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 Atherosclerotic vascular calcifications. IMPRESSION IMPRESSION: Symmetric atrophy of the extraocular muscles. Although nonspecific, findings may be seen in the setting of myasthenia gravis. IMPRESSION / PLAN: Gina was seen today for return neuro. Diagnoses and all orders for this visit: Binocular vision disorder with diplopia - MRI BRAIN W WO CONTRAST; Future - SSA/RO AND SSB/LA ANTIBODIES - ANTINUCLEAR ANTIBODY (BAILEY) EIA SCREEN WITH REFLEX AB QUANT - ERYTHROCYTE SEDIMENTATION RATE (ESR) - VITAMIN B1 (THIAMINE), BLOOD, LC/MS/MS - CK - MUSK ANTIBODY TEST - LRP4 AUTOANTIBODY TEST - ACETYLCHOLINE RECEPTOR MODULATING ANTIBODY - ACETYLCHOLINE RECEPTOR BLOCKING AB - RHEUMATOID FACTOR - DOUBLE STRANDED DNA (DSDNA) ANTIBODY, QUANT - VGCC TYPE P/Q AUTOAB(LEMS) Ophthalmoplegia - MRI BRAIN W WO CONTRAST; Future - SSA/RO AND SSB/LA ANTIBODIES - ANTINUCLEAR ANTIBODY (BAILEY) EIA SCREEN WITH REFLEX AB QUANT - ERYTHROCYTE SEDIMENTATION RATE (ESR) - VITAMIN B1 (THIAMINE), BLOOD, LC/MS/MS - CK - MUSK ANTIBODY TEST - LRP4 AUTOANTIBODY TEST - ACETYLCHOLINE RECEPTOR MODULATING ANTIBODY - ACETYLCHOLINE RECEPTOR BLOCKING AB - RHEUMATOID FACTOR - DOUBLE STRANDED DNA (DSDNA) ANTIBODY, QUANT - VGCC TYPE P/Q AUTOAB(LEMS) Chronic daily headache - MRI BRAIN W WO CONTRAST; Future - SSA/RO AND SSB/LA ANTIBODIES - ANTINUCLEAR ANTIBODY (BAILEY) EIA SCREEN WITH REFLEX AB QUANT - ERYTHROCYTE SEDIMENTATION RATE (ESR) - VITAMIN B1 (THIAMINE), BLOOD, LC/MS/MS - CK - MUSK ANTIBODY TEST - LRP4 AUTOANTIBODY TEST - ACETYLCHOLINE RECEPTOR MODULATING ANTIBODY - ACETYLCHOLINE RECEPTOR BLOCKING AB - RHEUMATOID FACTOR - DOUBLE STRANDED DNA (DSDNA) ANTIBODY, QUANT - VGCC TYPE P/Q AUTOAB(LEMS) Esotropia of right eye - VGCC TYPE P/Q AUTOAB(LEMS) Carcinoma of breast metastatic to bone, left (HCC) - VGCC TYPE P/Q AUTOAB(LEMS) The diagnosis on this patient is not yet certain and will require some additional evaluation. She has a longstanding history of binocular horizontal diplopia previously relieve with use of prisms. She also has dry eye. In regards to pertinent past medical history she does have a history of breast cancer with metastasis to the spine status post thoracic decompression.. She does have a daily headache as well. Differential diagnosis includes idiopathic intracranial hypotension, risk factors include previous thoracic spine surgery and daily headache. Other differential diagnosis includes carcinomatosis meningitis although this seems very unlikely given the duration/chronicity. Other considerations include an atypical presentation of myasthenia gravis. Acetylcholine receptor binding antibody was negative. Recommend we obtain MRI of the brain with without contrast to look for any evidence of pachymeningeal enhancement. This will also be beneficial to look for any lesions in the midbrain. Inregards to her ophthalmoplegia which was noted on examination as noted above as well as binocular diplopia will arrange for some additional labs. Pending the results of above testing may need to consider single fiber EMG referral. Will arrange for follow-up pending the results of the above testing. Contreras Enriquez DO documented in this encounter Nursing Notes * Franny Wasserman LPN - 06/24/2023 11:06 AM EST Patient verified identity by spelling of last name and date. Chief Complaint Patient presents with Return Neuro documented in this encounter Plan of Treatment Upcoming Encounters Date Type Department Care Team (Late st Contact Info) Description 06/24/2023 2:50 PM EST [facility] [address] [place] [phone] Luis Miguel Burks [facility] [address] [place] [address] Iron deficiency anemia due to chronic blood loss 06/28/2023 6:20 PM EST Office Visit [facility] Maia Burks [address] [place] [address] Karol Herring MD [address] [place] [address] 06/30/2023 3:00 PM EST [facility] [address] [place] [address] Saritha Bishop DO [address] [place] [place] [address] 07/21/2023 12:30 PM EST Imaging Radiology [address] [facility] [address] 08/09/2023 11:00 AM EST Telemedicine [facility] [address] [facility] [address] [place] [address] Dimas Powers, DO [address] [facility] [address] [id number] 09/23/2023 11:20 AM EST Office Visit Nephrology, [address] [address] Alex Olivares MD [address] [place] [address] 09/30/2023 2:00 PM EST Nurse Only Ancillary [facility] [address] [address] [place], Nurse Annual Wellness [facility] [address] [facility] [address] [address] 11/14/2023 2:00 PM EDT Office Visit Hematology/Oncology [facility] [address] [place] [address] Amauri Gustafson MD [address] [facility] [address] [address] 11/28/2023 3:00 PM EDT Office Visit Family Practice [facility] [address] [address] Saritha Bishop, [facility] [place] [address] 04/19/2024 11:00 AM EDT Imaging Radiology [address] [facility] [address] [place] [address] Pending Results Name Type Priority Associated Diagnoses Date /Time ANTINUCLEAR ANTIBODY (BAILEY) EIA SCREEN WITH REFLEX AB QUANT Lab Routine Binocular vision disorder with diplopia Ophthalmoplegia Chronic daily headache 06/24/2023 2:14 PM EST ERYTHROCYTE SEDIMENTATION RATE (ESR) Lab Routine Binocular vision disorder with diplopia Ophthalmoplegia Chronic daily headache 06/24/2023 2:14 PM EST VITAMIN B1 (THIAMINE), BLOOD, LC/MS/MS Lab Routine Binocular vision disorder with diplopia Ophthalmoplegia Chronic daily headache 06/24/2023 2:14 PM EST CK Lab Routine Binocular vision disorder with diplopia Ophthalmoplegia Chronic daily headache 06/24/2023 2:14 PM EST MUSK ANTIBODY TEST Lab Routine Binocular vision disorder with diplopia Ophthalmoplegia Chronic daily headache 06/24/2023 2:14 PM EST LRP4 AUTOANTIBODY TEST Lab Routine Binocular vision disorder with diplopia Ophthalmoplegia Chronic daily headache 06/24/2023 2:14 PM EST ACETYLCHOLINE RECEPTOR MODULATING ANTIBODY Lab Routine Binocular vision disorder with diplopia Ophthalmoplegia Chronic daily headache 06/24/2023 2:14 PM EST ACETYLCHOLINE RECEPTOR BLOCKING AB Lab Routine Binocular vision disorder with diplopia Ophthalmoplegia Chronic daily headache 06/24/2023 2:14 PM EST RHEUMATOID FACTOR Lab Routine Binocular vision disorder with diplopia Ophthalmoplegia Chronic daily headache 06/24/2023 2:14 PM EST VGCC TYPE P/Q AUTOAB(LEMS) Lab Routine Binocular vision disorder with diplopia Ophthalmoplegia Chronic daily headache 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, left (HCC) 06/24/2023 2:14 PM EST ANTINUCLEAR ANTIBODY (BAILEY) SCREEN, SAIRA Lab Routine Binocular vision disorder with diplopia Ophthalmoplegia Chronic daily headache 06/24/2023 2:14 PM EST Scheduled Orders Name Type Priority Associated Diagnoses Orde r Schedule MRI BRAIN W WO CONTRAST Medical Imaging Routine Binocular vision disorder with diplopia Ophthalmoplegia Chronic daily headache Expected: 06/24/2023, Expires: 12/24/2023 Scheduled Procedures Name Priority Associated Diagnoses Date/Ti [...] Screening 09/28/2023 09/27/2022 CKD PHOS USE SMARTSET 64829 11/02/2023 04/1 , 10/14/2021, 03/04/2020, Additional history exists TSH 11/02/2023 11/01/2022, 050 08/2021, 10/20/2020, Additional history exists GFR 11/03/2023 05/04/2023, 02/23, 12/06/2022, Additional history exists Diabetic Eye Exam 11/29/2023 11/28/2022, , 12/10/2020, Additional history exists HbA1c 12/21/2023 06/22/2023, 10/23, 07/27/2022, Additional history exists CKD HGB USE SMARTSET 53753 05/04/202405/04, 05/04/2023, 01/17/2023, Additional history exists Albumin/Creatinine [...] this encounter Medical Devices Implanted Type Area Machine Setter Device Identifier Shelf Expiration Date Model / Serial / Lot Lens Intraoc 16.0 - [id number] - [id number] Implanted:Qty: 1 on 11/30/2016 by Kt Molina MD at OR [facility] Left: Eye [employer] 04/23/2021 [id number] / [id number] / [id number] Lens Intraoc 16.0 - [id number] - [id number] Implanted:Qty: 1 on 12/16/2016 by Kt Molina MD at OR [facility] Right: Eye [employer] 04/23/2021 [id number] / [id number] / [id number] Vectris 1x8 Compact Trial Screening Implanted:Qty: 1 on 05/19/2023 by Dimas Powers DO at OR [facility] Right: Back [employer] : NEUROLOGIC PAIN 02/11/2027 [id number] / / [id number] documented as of this encounter Visit Diagnoses Diagnosis Binocular vision disorder with diplopia- Primary Diplopia Ophthalmoplegia Unspecified disorder of eye movements Chronic daily headache Headache Esotropia of right eye Esotropia, unspecified Carcinoma of breast metastatic to bone, left (HCC) Iron deficiency anemia due to chronic blood loss Iron deficiency anemia secondary to blood loss (chronic) documented in this encounter Advance Directives Documents on File Type Date Recorded Patient Silver Solution Mixer Expl anation Advance Directives and Living Will [...] the patient have Health Care Power of Automatic Oven Operator? No Full Code 11/07/2009 9:32 PM 11/12/2009 9:58 PM This order reflects the patients wishes and were consensually agreed upon. Question Answer Comments Discussion of Advance Directives occurred with: Not Discussed Care Teams Paper Sheeter Relationship Specialty Start Date End Date Saritha Bishop DO [address] [place] [address] PCP - General Family Medicine 05/30/11 documented as of this encounter"
--- OUTSIDE RECORDS SUMMARY | 2023-07-06 21:15 | External Medical Summary ---
Author Name Unknown Address Unknown Organization K01:LABORATORY [address] [facility] [address] Laboratory Report Ordering Provider Test Date Status MORGAN MOYA 06/24/2023 14:14:22 Final Observation Date Value Abnormality Reference (Units ) Status Nuclear IgG Ab [Ratio] in Serum by Immunoassay 06/24/2023 14:14:22 Negative Negative Final DNA double strand Ab [Presence] in Serum 06/24/2023 14:14:22 Negative Negative Final DOUBLE STRANDED DNA VALUE - [facility] 06/24/2023 14:14:22 <0.6 <20 (IU/mL) Final Extractable nuclear Ab [Presence] in Serum 06/24/2023 14:14:22 Negative Negative Final Nuclear IgG Ab [Ratio] in Serum by Immunoassay 06/24/2023 14:14:22 <0.1 <0.7 (Ratio) Final Screening is based on detect ion of the following antibodies: dsDNA, U1-CORPORATE INTERN (RNP70, A, C), SS-A/Ro, SS-B / La, Florencia-1, Scl-70, Centromere B proteins and Sm proteins. In conjunction with clinical findings, this can aid in the diagnosis of systemic lupus erythematosous (SLE), mixed connective tissue disease (MCTD), Sjogren's syndrome, scleroderma and polymyositis/dermatomyositis.
However, a negative result does not rule out systemic rheumatic or other autoimmune disease. If clinically suspected, further evaluation and testing may be necessary. Please consult with Rheumatology Department.
Methodology: Fluorescent Enzyme Immunoassay. Performing Location LABORATORY [address] [facility] [address]
--- OUTSIDE RECORDS SUMMARY | 2023-07-06 21:15 | External Medical Summary ---
Author Name Unknown Address Unknown Organization : Laboratory Report Ordering Provider Test Date Status MORGAN MOYA 06/24/2023 14:14:22 Final Observation Date Value Abnormality Reference (Units ) Status Thiamine [Moles/volume] in Blood 06/24/2023 14:14:22 132 78-185 (nmol/L) Final Vitamin supplementation with in 24 hours prior to
blood draw may affect the accuracy of the results.
This test was developed and its analytical performance
characteristics have been determined by [facility] [place], [place]. It has
not been cleared or approved by the U.S. Food and Drug
Administration. This assay has been validated pursuant
to the CLIA regulations and is used for clinical
purposes.

Test Performed at:
[facility]
[address] [facility] [place] [address]
Bean Paulino M.D., Ph.D.,Director of Laboratories Performing Location
--- OUTSIDE RECORDS SUMMARY | 2023-07-06 21:15 | External Medical Summary ---
Author Name Unknown Address Unknown Organization K01:[facility] [place] [facility] [address] [place] [address] Laboratory Report Ordering Provider Test Date Status MORGAN MOYA 06/24/2023 14:14:22 Final Observation Date Value Abnormality Reference (Units ) Status Rheumatoid Factor 06/24/2023 14:14:22 <10 <1 4 (IU/mL) Final Performing Location LABORATORY [facility] [address] [place] [address]
--- OUTSIDE RECORDS SUMMARY | 2023-07-06 21:15 | External Medical Summary | Summary of Care ---
Author Name Unknown Organization [facility] Address [address] [place] [address] Phone [phone] Care Team Providers Care Photograph Tinter Name Role Phone Saritha Bishop DO Primary Care Provider Reason for Referral * Precert (Within 10 days (routine)) - Pending Review Specialty Diagnoses / Procedures Referred By Juliann obando Referred To Contact Radiology Diagnoses Binocular vision disorder with diplopia Ophthalmoplegia Chronic daily headache Procedures MRI BRAIN W WO CONTRAST Contreras Enriquez DO [address] [place] [address] Referral ID Status Reason Start Date Expiration Date V isits Requested Visits Authorized [id number] Pending Review 06/24/2023 999 999 Reason for Visit * Reason Comments Return Neuro Encounter Details Date Type Department Care Team (Late st Contact Info) Description 06/24/2023 11:20 AM EST Office Visit [facility] [address] [place] [address] Contreras Enriquez DO [address] [place] [address] Binocular vision disorder with diplopia*; Ophthalmoplegia; Chronic [...] mg by mouth daily. 0 09/04/2020 Active [place]-3 1000 MG Oral Capsule Take by mouth. [...] SUNDAYS 100 Tablet 1 03/03/2023 Active Pyridostigmine [place] 60 MG Oral Tablet (Mestinon) 1/2 tab [...] mRNA, LNP-s, No Pre serve, 2-Dose Series ([employer]) 05/18/2021,10/04/2020,09/06/2020 Pneumococcal Conjugate Vacc, 13 Valent (Prevnar) [...] this encounter Progress Notes * Contreras Enriquez, DO - 06/24/2023 12:19 PM EST Progress Note - Neurology [address] [address] NAME: Gina Brock Date of : 1945 [...] Tablet Take 800 mg by mouth daily. [place]-3 1000 MG Oral Capsule Take by mouth. [...] THURSDAYS AND SUNDAYS 100 Tablet 1 Pyridostigmine [place] 60 MG Oral Tablet (Mestinon) 1/2 tab at bedtime x 5 days then increase to 1/2 tab twice daily x 5 days then 1/2 tab three times daily after 2 weeks on /2 tab Three times dailyincrease to 1 tab [...] Description 06/24/2023 2:50 PM EST Laboratory Laboratory [facility] [address] [place] [address] [facility] [address] [facility] [place] [address] Iron deficiency anemia due to chronic blood loss 06/28/2023 6:20 PM EST Office Visit [facility] [address] [place] [address] Karol Herring MD [address] [place] [address] 06/30/2023 3:00 PM EST Office Visit [facility] [place] [address] [place] [address] Saritha Bishop DO [address] [facility] [place] [address] 07/21/2023 12:30 PM EST Imaging Radiology [address], [place] 132 [facility] [place] [address] 08/09/2023 11:00 AM EST Telemedicine Interventional [facility] Center, [facility] [place] [address] Dimas Powers, DO [address] [place] [phone] 09/23/2023 11:20 AM EST Office Visit Nephrology, [address] [address] Alex Olivares MD [address] [place] [address] 09/30/2023 2:00 PM EST Nurse [facility] [address] [place] [address] [place], Nurse Annual Wellness [facility] 200 [facility] [place] [address] 11/14/2023 2:00 PM EDT Office Visit Hematology/Oncology [facility] [place] [address] [place] [address] Amauri Gustafson MD 200 [facility] [place] [address] 11/28/2023 3:00 PM EDT Office Visit Family Practice [facility] [place] [address] [place] [address] Saritha Bishop, 200 [facility] [place] [address] 04/19/2024 11:00 AM EDT Imaging Radiology [facility] 1st [facility], [place] [address] [place] [address] Pending Results Name Type Priority Associated Diagnoses [...] Screening 09/28/2023 09/27/2022 CKD PHOS USE SMARTSET 37364 11/02/2023 041 , 10/14/2021, 03/04/2020, Additional history exists TSH 11/02/2023 11/01/2022, 05/0 08/2021, 10/20/2020, Additional history exists GFR 11/03/2023 05/04/2023, 02/23, 12/06/2022, Additional history exists Diabetic Eye Exam 11/29/2023 11/28/2022, , 12/10/2020, Additional history exists HbA1c 12/21/2023 06/22/2023, 10/23, 07/27/2022, Additional history exists CKD HGB USE SMARTSET 96594 05/04/202405/04, 05/04/2023, 01/17/2023, Additional history exists Albumin/Creatinine [...] this encounter Medical Devices Implanted Type Area Storage Battery Inspector And Tester Device Identifier Shelf Expiration Date Model / Serial / Lot Lens Intraoc 16.0 - [id number] - [id number] Implanted:Qty: 1 on 11/30/2016 by Kt Molina MD at OR [facility] Left: Eye BAUSCH & LOMB 04/23/2021 [id number] / [id number] / [id number] Lens Intraoc 16.0 - [id number] - [id number] Implanted:Qty: 1 on 12/16/2016 by Kt Molina MD at OR [facility] Right: Eye BAUSCH & LOMB 04/23/2021 [id number] / [id number] / [id number] Vectris 1x8 Compact Trial Screening Implanted:Qty: 1 on 05/19/2023 by Dimas Powers DO at OR [facility] Right: Back [employer] : NEUROLOGIC PAIN 02/11/2027 [id number] / / [id number] documented as of this encounter Visit Diagnoses [...] Documents on File Type Date Recorded 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 No Full Code 11/07/2009 9:32 PM 11/12/2009 9:58 PM This order reflects the patients wishes and were consensually agreed upon. Question Answer Comments Discussion of Advance Directives occurred with: Not Discussed Care Teams Photograph Tinter Relationship Specialty Start Date End Date Saritha Bishop DO [address] [place] [address] PCP - General Family Medicine 05/30/11 documented as of this encounter"
--- OUTSIDE RECORDS SUMMARY | 2023-07-06 21:15 | External Medical Summary ---
Author Name Unknown Address Unknown Organization K01:[facility] [place] [address] [place] [address] Laboratory Report Ordering Provider Test Date Status MORGAN MOYA 06/24/2023 14:14:22 Final Observation Date Value Abnormality Reference (Units ) Status CK 06/24/2023 14:14:22 82 26-192 (U/ L) Final Performing Location [facility] - [address] [place] [address]
--- OUTSIDE RECORDS SUMMARY | 2023-07-06 21:15 | External Medical Summary | Summary of Care ---
Author Name Unknown Organization [facility] Address [address] [place] [address] Phone [phone] Care Team Providers Care Cloth Colorer Name Role Phone Saritha Bishop DO Primary Care Provider Reason for Visit * Reason Onset Date Comments Test Results 06/21/2023 Encounter Details Date Type Department Care Team (Late st Contact Info) Description 06/21/2023 Telephone Family Practice [facility] 200 [facility] [place] [address] Saritha Bishop DO 200 [facility] [place] [address] Test Results Allergies Active Allergy Reactions Criticality Noted Date Comments Metformin 07/29/2022 Muscle Cramping Metoclopramide Hcl 01/15/2008 Mental changes Sulfa Antibiotics 05/18/2001 hives, welts all over body documented as of this encounter (statuses as of 06/23/2023) Medications Medication Sig Dispensed Refills Start Date [...] mg by mouth daily. 0 09/04/2020 Active [place]-3 1000 MG Oral Capsule Take by mouth. [...] SUNDAYS 100 Tablet 1 03/03/2023 Active Pyridostigmine [place] 60 MG Oral Tablet (Mestinon) 1/2 tab [...] as of this encounter (statuses as of 06/23/2023) Active Problems Problem Noted Date Diagnosed Date B12 deficiency 06/23/2023 Other iron deficiency anemias 06/22/2023 Hypertensive chronic [...] as of this encounter (statuses as of 06/23/2023) Resolved Problems Problem Noted Date Diagnosed Date [...] as of this encounter (statuses as of 06/23/2023) Immunizations Name Administration Dates Next Due COVID-19 [...] (but will get first injection here tomorrow). Rand plan for B12 built and routed for [...] she still should come in. Please advise: [phone] * Telephone Encounter - Pina Bai RN [...] if needed. Patient agreeable, will go to [facility]. Called [facility] ER to make them aware patient is coming, spoke to Jocelynn Brasher. * Telephone Encounter - Pina Bai RN - 06/22/2023 1:51 PM EST Rand plan built and routed for signature. Waiting [...] to have a permanent stimulator placed at [facility]. Advised her that we will follow [...] there is anything else he suggests. Called [facility] and was transferred to pre-admission testing. [...] him. Blood workup done on 06/13/2023 at [facility]: -WBC 9300, H&H of 7.2/20.7, Platelet count of 377645, MCV of 96.7. -BUN/Creat: 40/1.1. Calcium 8.1 [...] - 06/21/2023 3:26 PM EST Linda with [facility] called in regards to the patient's pre op labs coming back. She said that her Hemoglobin was 7.2 and her hematocrit was 23.7. The patient has an appt with Dr. Herring on 06/28/2023 for a pre op appt but the PA from [facility] wanted us to be aware of thelab results before then. documented in this encounter Plan of Treatment Upcoming Encounters Date Type Department Care Team (Late st Contact Info) Description 06/24/2023 11:20 AM EST Office Visit Neurology [facility] [address] [place] [address] Contreras Enriquez, DO 200 [place] [address] 06/24/2023 12:00 PM EST Hem/Onc Treatment Hematology/Oncology Treatment, [place] 200 [facility] [address] Kimmie, Chair 9 Hem Onc [facility] 200 [place] [address] 06/28/2023 6:20 PM EST Office Visit [facility] [place] [address] [place] [address] Karol Herring MD 200 [place] [address] 06/30/2023 3:00 PM EST Office Visit [facility] [address] [place] [address] Saritha Bishop, DO 200 [facility] [place] [address] 08/09/2023 11:00 AM EST Telemedicine Interventional [facility], [facility] [address] [place] [address] [address] Dimas Powers, DO [address] [place] [phone] 09/23/2023 11:20 AM EST Office Visit Nephrology, [address] [address] Alex Olivares MD [address] [place] [address] 09/30/2023 2:00 PM EST Nurse Only Ancillary [facility] [address] [place] [address] [place], Nurse Annual Wellness [facility] 200 [facility] [place] [address] 11/14/2023 2:00 PM EDT Office Visit Hematology/Oncology [facility] [address] [place] [address] Amuari Gustafson MD 200 [facility] [place] [address] 11/28/2023 3:00 PM EDT Office Visit Family Practice [facility] [address] [place] [address] Saritha Bishop DO 200 [facility] [place] [address] 04/19/2024 11:00 AM EDT Imaging Radiology [address] 132 [facility] [place] [address] Scheduled Procedures Name Priority Associated Diagnoses Date/Ti [...] Screening 09/28/2023 09/27/2022 CKD PHOS USE SMARTSET 49564 11/02/2023/, 10/14/2021, 03/04/2020, Additional history exists TSH 11/02/2023 11/01/2022, 05/0 08/2021, 10/20/2020, Additional history exists GFR 11/03/2023 05/04/2023, 02/23, 12/06/2022, Additional history exists Diabetic Eye Exam 11/29/2023 11/28/2022, , 12/10/2020, Additional history exists HbA1c 12/21/2023 06/22/2023, 10/23, 07/27/2022, Additional history exists CKD HGB USE SMARTSET 84478 05/04/202405/04, 05/04/2023, 01/17/2023, Additional history exists Albumin/Creatinine [...] this encounter Medical Devices Implanted Type Area Bus Company Manager Device Identifier Shelf Expiration Date Model / Serial / Lot Lens Intraoc 16.0 - [id number] - [id number] Implanted:Qty: 1 on 11/30/2016 by Kt Molina MD at OR [facility] Left: Eye BAUSCH & LOMB 04/23/2021 [id number] / [id number] / [id number] Lens Intraoc 16.0 - [id number] - [id number] Implanted:Qty: 1 on 12/16/2016 by Kt Molina MD at OR [facility] Right: Eye BAUSCH & LOMB 04/23/2021 [id number] / [id number] / [id number] Vectris 1x8 Compact Trial Screening Implanted:Qty: 1 on 05/19/2023 by Dimas Powers DO at OR [facility] Right: Back [employer] : NEUROLOGIC PAIN 02/11/2027 [id number] / / [id number] documented as of this encounter Visit Diagnoses Diagnosis Other iron deficiency anemia- Primary documented in this encounter Advance Directives Documents on File Type Date Recorded 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 No Full Code 11/07/2009 9:32 PM 11/12/2009 9:58 PM This order reflects the patients wishes and were consensually agreed upon. Question Answer Comments Discussion of Advance Directives occurred with: Not Discussed Care Teams Cloth Colorer Relationship Specialty Start Date End Date Saritha Bishop DO [address] [place], [place] [id number] PCP - General Family Medicine 05/30/11 documented as of this encounter
--- OUTSIDE RECORDS SUMMARY | 2023-07-06 21:15 | External Medical Summary | Summary of Care ---
Author Name Unknown Organization [facility] Address [address] [place] [address] Phone [phone] Care Team Providers Care Date Night Caregiver Name Role Phone Saritha Bishop DO Primary Care Provider Reason for Referral * Precert (Within 10 days (routine)) - Pending Review Specialty Diagnoses / Procedures Referred By Juliann obando Referred To Contact Radiology Diagnoses Binocular vision disorder with diplopia Ophthalmoplegia Chronic daily headache Procedures MRI BRAIN W WO CONTRAST Contreras Enriquez DO [address] [place] [address] Referral ID Status Reason Start Date Expiration Date V isits Requested Visits Authorized [id number] Pending Review 06/24/2023 999 999 Reason for Visit * Reason Comments Return Neuro Encounter Details Date Type Department Care Team (Late st Contact Info) Description 06/24/2023 11:20 AM EST Office Visit Neurology [facility] [address] [place] [address] Contreras Enriquez DO [address] [place] [address] Binocular vision disorder with diplopia*; Ophthalmoplegia; Chronic [...] mg by mouth daily. 0 09/04/2020 Active [place]-3 1000 MG Oral Capsule Take by mouth. [...] SUNDAYS 100 Tablet 1 03/03/2023 Active Pyridostigmine [place] 60 MG Oral Tablet (Mestinon) 1/2 tab [...] mRNA, LNP-s, No Pre serve, 2-Dose Series ([employer]) 05/18/2021,10/04/2020,09/06/2020 Pneumococcal Conjugate Vacc, 13 Valent (Prevnar) [...] 12:19 PM EST Progress Note - Neurology [address] [address] NAME: Gina Brock Date of : 1945 [...] Tablet Take 800 mg by mouth daily. [place]-3 1000 MG Oral Capsule Take by mouth. [...] THURSDAYS AND SUNDAYS 100 Tablet 1 Pyridostigmine [place] 60 MG Oral Tablet (Mestinon) 1/2 tab [...] Care Team (Late st Contact Info) Description 06/28/2023 6:20 PM EST Office Visit [facility] 200 [facility] [place] [address] Karol Herring MD 200 [facility] [place] [address] 06/30/2023 3:00 PM EST Office Visit [facility] 200 [facility] [place] [address] Saritha Bishop DO 200 [facility] [place] [address] 07/21/2023 12:30 PM EST Imaging Radiology [facility]st [facility] [place] [address] 08/09/2023 11:00 AM EST Telemedicine Interventional Pain Center, [facility] 132 [facility] [place] [address] Dimas Powers DO [address] [place] [address] 09/23/2023 11:20 AM EST Office Visit Nephrology, [address] [address] Alex Olivares MD [address] [place] [phone] 09/30/2023 2:00 PM EST Nurse Only Ancillary [facility] [address] [place] [address] [place], Nurse Annual Wellness [facility] [place] [address] 11/14/2023 2:00 PM EDT Office Visit Hematology/Oncology [facility] [place] [address] [place] [address] Amauri Gustafson MD [address] [place] [address] 11/28/2023 3:00 PM EDT Office Visit Family Practice [facility] [address] [place] [address] Saritha Bishop DO 200 [facility] [place] [address] 04/19/2024 11:00 AM EDT Imaging Radiology [address], [place] 132 [facility] [place] [address] Scheduled Orders Name Type Priority Associated Diagnoses Orde r Schedule MRI BRAIN W WO CONTRAST Medical Imaging Routine Binocular vision disorder with diplopia Ophthalmoplegia Chronic daily headache Expected: 06/24/2023, Expires: 12/24/2023 SSA/RO AND SSB/LA ANTIBODIES Lab Routine Binocular vision disorder with diplopia Ophthalmoplegia Chronic daily headache Ordered: 06/24/2023 ANTINUCLEAR ANTIBODY (BAILEY) EIA SCREEN WITH REFLEX AB QUANT Lab Routine Binocular vision disorder with diplopia Ophthalmoplegia Chronic daily headache Ordered: 06/24/2023 ERYTHROCYTE SEDIMENTATION RATE (ESR) Lab Routine Binocular vision disorder with diplopia Ophthalmoplegia Chronic daily headache Ordered: 06/24/2023 VITAMIN B1 (THIAMINE), BLOOD, LC/MS/MS Lab Routine Binocular vision disorder with diplopia Ophthalmoplegia Chronic daily headache Ordered: 06/24/2023 CK Lab Routine Binocular vision disorder with diplopia Ophthalmoplegia Chronic daily headache Ordered: 06/24/2023 MUSK ANTIBODY TEST Lab Routine Binocular vision disorder with diplopia Ophthalmoplegia Chronic daily headache Ordered: 06/24/2023 LRP4 AUTOANTIBODY TEST Lab Routine Binocular vision disorder with diplopia Ophthalmoplegia Chronic daily headache Ordered: 06/24/2023 ACETYLCHOLINE RECEPTOR MODULATING ANTIBODY Lab Routine Binocular vision disorder with diplopia Ophthalmoplegia Chronic daily headache Ordered: 06/24/2023 ACETYLCHOLINE RECEPTOR BLOCKING AB Lab Routine Binocular vision disorder with diplopia Ophthalmoplegia Chronic daily headache Ordered: 06/24/2023 RHEUMATOID FACTOR Lab Routine Binocular vision disorder with diplopia Ophthalmoplegia Chronic daily headache Ordered: 06/24/2023 DOUBLE STRANDED DNA (DSDNA) ANTIBODY, QUANT Lab Routine Binocular vision disorder with diplopia Ophthalmoplegia Chronic daily headache Ordered: 06/24/2023 VGCC TYPE P/Q AUTOAB(LEMS) Lab Routine Binocular vision disorder with diplopia Ophthalmoplegia Chronic daily headache 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, left (HCC) Ordered: 06/24/2023 Scheduled Procedures Name Priority Associated Diagnoses Date/Ti [...] Screening 09/28/2023 09/27/2022 CKD PHOS USE SMARTSET 44748 11/02/2023 04/1 , 10/14/2021, 03/04/2020, Additional history exists TSH 11/02/2023 11/01/2022, 05/0 08/2021, 10/20/2020, Additional history exists GFR 11/03/2023 05/04/2023, 02/23, 12/06/2022, Additional history exists Diabetic Eye Exam 11/29/2023 11/28/2022, , 12/10/2020, Additional history exists HbA1c 12/21/2023 06/22/2023, 10/23, 07/27/2022, Additional history exists CKD HGB USE SMARTSET 85713 05/04/202405/04, 05/04/2023, 01/17/2023, Additional history exists Albumin/Creatinine [...] this encounter Medical Devices Implanted Type Area Mushroom Press Operator Device Identifier Shelf Expiration Date Model / Serial / Lot Lens Intraoc 16.0 - [id number] - [id number] Implanted:Qty: 1 on 11/30/2016 by Kt Molina MD at OR [facility] Left: Eye BAUSCH & LOMB 04/23/2021 [id number] / [id number] / [id number] Lens Intraoc 16.0 - [id number] - [id number] Implanted:Qty: 1 on 12/16/2016 by Kt Molina MD at OR [facility] Right: Eye BAUSCH & LOMB 04/23/2021 [id number] / [id number] / [id number] Vectris 1x8 Compact Trial Screening Implanted:Qty: 1 on 05/19/2023 by Dimas Powers DO at OR [facility] Right: Back [employer] : NEUROLOGIC PAIN 02/11/2027 [id number] / / [id number] documented as of this encounter Visit Diagnoses Diagnosis Binocular vision disorder with diplopia- Primary Diplopia Ophthalmoplegia Unspecified disorder of eye movements Chronic daily headache Headache Esotropia of right eye Esotropia, unspecified Carcinoma of breast metastatic to bone, left (HCC) documented in this encounter Advance Directives Documents on File Type Date Recorded 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 No Full Code 11/07/2009 9:32 PM 11/12/2009 9:58 PM This order reflects the patients wishes and were consensually agreed upon. Question Answer Comments Discussion of Advance Directives occurred with: Not Discussed Care Teams Date Night Caregiver Relationship Specialty Start Date End Date Saritha Bishop DO [address] [place] [address] PCP - General Family Medicine 05/30/11 documented as of this encounter"
--- OUTSIDE RECORDS SUMMARY | 2023-07-06 21:15 | External Medical Summary ---
Author Name Unknown Address Unknown Organization K09:[facility] [place] [address] Laboratory Report Ordering Provider Test Date Status MYA PATTEN 06/24/2023 14:14:22 Final Observation Date Value Abnormality Reference (Units ) Status Nucleated erythrocytes/100 leukocytes [Ratio] in Blood by Automated count 06/24/2023 14:14:22 Final Performing Location [facility] [place] [address]
--- OUTSIDE RECORDS SUMMARY | 2023-07-06 21:15 | External Medical Summary ---
Author Name Unknown Address Unknown Organization : Laboratory Report Ordering Provider Test Date Status MORGAN MOYA 06/24/2023 14:14:22 Final Observation Date Value Abnormality Reference (Units ) Status Muscle specific receptor tyrosine kinase Ab [Titer] in Serum or Plasma 06/24/2023 14:14:22 SEE BELOW Final TESTS--------- ----RESULTS--------UNITS--REF. RANGE---
INTERPRETATION
NEGATIVE
This test did not detect abnormal levels of anti-MuSK
antibodies.
TECHNICAL RESULTS

Int erpretive Result Table

INTER PRETIVE RESULT: Negative
TEST: anti-MuSK
TECHNICAL RESULT: <1:10
REFERENCE RANGE: Negative <1:10, Borderline 1:10, Positive
>=1:20
-------

COM MENTS
Comments: This result does not exclude a diagnosis of
Myasthenia Gravis.
Recommendations: Health care providers, please contact the
[facility] Client Services Department at
if you wish to speak with a clinical
technical assistance consultant regarding this test result.
Other testing available: If there is high clinical suspicion
for myasthenia gravis, consider testing for LRP4 antibodies.
Background information:Myasthenia gravis (MG) is an
autoimmune disease affecting the neuromuscular junctions of
skeletal muscles. The predominant clinical feature is
fatigability and weakness of the muscles that typically
become progressively worse during periods of sustained
activity and improve after periods of rest (1,2). Age of
onset of MG is variable with an overall incidence of
approximately 15:100,000 (1).
Anti-MuSK antibodies have been associated with Myasthenia
Gravis (3,4). Although the majority of patients with
generalized myasthenia gravis (MG) have antibodies against
AChR (AChR-MG), 10-15% are seronegative. Within this group,
about 40% have anti-MuSK antibodies, representing 5-8% of
the MG population (3,4). Diagnosis of MuSK MG can be
challenging due to its atypical presentation, including few
symptom fluctuations, non-responsiveness to
acetylcholinesterase inhibitors in a significant proportion
of patients and negative electrodiagnostic studies when
performed on limb muscles (4).
METHODS
Detection of antibodies was performed by Radioimmunoassay
(KAY) methodology.
Limitations of analysis: Reagent effectiveness may affect
the signal intensity of the response. Although rare, false
pos itive or false negative results may occur. All results
should be interpreted in the context of clinical findings,
relevant history, and other laboratory data.
REFERENCES
1. Asaf Bloom et al. (2005) RAMÍREZ 293: 1906-14. (PMID:
33023099)
2. Desiree RS, et al. (2000) Postgrad Med 107: 211-4,
220-2. (PMID: 12434832)
3. Melchor-Erica S, et al. (2014) J Autoimmun 52: 90-100.
(PMID: 71051348)
4. Miryam Jarrell et al. (2013) Autoimmun Rev 12: 931-5. (PMID:
44905305)
This test was developed and its analytical performance
characteristics have been determined by [facility].
It has not been cleared or approved by the U.S. Food and
Drug Administration. This assay has been validated pursuant
to the CLIA regulations and is used for clinical purposes.
Laboratory oversight provided by Padmaja Santana M.D.,
Ph.D., CLIA license [place], [facility] (CLIA#
[id number])
Testing performed at:
[facility] [address] [place] [id number]
Test performed by [facility]
[address] [place] [address]
[address] [place] [address]

Narcotics And/Or Vice Detective: Padmaja Santana M.D., Ph.D. Performing Location
--- OUTSIDE RECORDS SUMMARY | 2023-07-06 21:15 | External Medical Summary ---
Author Name Unknown Address Unknown Organization K09:[facility] [address] [place] [address] Laboratory Report Ordering Provider Test Date Status MYA PATTEN 06/24/2023 14:14:22 Final Observation Date Value Abnormality Reference (Units ) Status WBC, Total 06/24/2023 14:14:22 7.06 4.00-10.8 0 (K/uL) Final RBC 06/24/2023 14:14:22 3.13 3.85-5.15 (M/uL) Final Hemoglobin 06/24/2023 14:14:22 9.2 Below low normal 12 .0-15.3 (g/dL) Final HCT 06/24/2023 14:14:22 29.1 Below low normal 36. 0-45.2 (%) Final MCV 06/24/2023 14:14:22 93.0 81.5-97.5 (fL) Final MCH 06/24/2023 14:14:22 29.4 27.0-34.0 (pg) Final MCHC 06/24/2023 14:14:22 31.6 32.0-36.0 (g/dL) Final RDW 06/24/2023 14:14:22 16.7 11.5-15.5 (%) Final Platelets 06/24/2023 14:14:22 344 140-400 (K /uL) Final MPV 06/24/2023 14:14:22 9.1 6.6-11.1 ( fL) Final Performing Location [facility] [address] [place] [address]
--- OUTSIDE RECORDS SUMMARY | 2023-07-06 21:15 | External Medical Summary | Summary of Care ---
Author Name Unknown Organization [facility] Address [address] [place] [address] Phone [phone] Care Team Providers Care Panelboard Operator Name Role Phone Saritha Bishop DO Primary Care Provider Reason for Visit * Reason Comments Outpatient Testing Encounter Details Date Type Department Care Team (Late st Contact Info) Description 06/24/2023 2:50 PM EST Laboratory Laboratory Scenery [facility] [address] [place] [address] [facility] Scenery [address] [place] [address] Iron deficiency anemia due to chronic blood [...] mg by mouth daily. 0 09/04/2020 Active [place]-3 1000 MG Oral Capsule Take by [...] SUNDAYS 100 Tablet 1 03/03/2023 Active Pyridostigmine [place] 60 MG Oral Tablet (Mestinon) 1/2 tab [...] mRNA, LNP-s, No Pre serve, 2-Dose Series (testhub) 05/18/2021,10/04/2020,09/06/2020 Pneumococcal Conjugate Vacc, 13 Valent (Prevnar) [...] Description 06/28/2023 6:20 PM EST Office Visit [facility] [address] [place] [address] Karol Herring MD 200 [facility] [place] [address] 06/30/2023 3:00 PM EST Office Visit [facility] [address] [place] [address] Saritha Bishop DO [address] [place] [address] 07/21/2023 12:30 PM EST Imaging Radiology [facility] [address] [facility] 132 [facility] [place] [address] 08/09/2023 11:00 AM EST Telemedicine Interventional Pain Center, [facility] 132 [facility] [place] [address] Dimas Powers, 132 [facility] [place] [phone] 09/23/2023 11:20 AM EST Office Visit Nephrology, [address], [place] [address] Alex Olivares MD [address] [place] [address] 09/30/2023 2:00 PM EST Nurse Only Ancillary [facility] [address] [place] [address] [place], Nurse Annual Wellness [facility] 200 [facility] [place] [address] 11/14/2023 2:00 PM EDT Office Visit Hematology/Oncology [facility] [address] [place] [address] Amauri Gustafson MD 200 [facility] [place] [address] 11/28/2023 3:00 PM EDT Office Visit Family Practice [facility] [address] [place] [address] Saritha Bishop DO 200 [facility] [place] [address] 04/19/2024 11:00 AM EDT Imaging Radiology [address] 132 [facility] [place] [address] Pending Results Name Type Priority Associated Diagnoses Date /Time CBC WITH WBC DIFFERENTIAL Lab STAT Iron deficiency anemia due to chronic blood loss 06/24/2023 2:14 PM EST CBC Lab STAT Iron deficiency anemia due to chronic blood loss 06/24/2023 2:14 PM EST DIFFERENTIAL, AUTOMATED Lab STAT Iron deficiency anemia due to chronic blood loss 06/24/2023 2:14 PM EST Scheduled Procedures Name Priority Associated [...] Screening 09/28/2023 09/27/2022 CKD PHOS USE SMARTSET 00636 11/02/202310/23, 10/14/2021, 03/04/2020, Additional history exists TSH 11/02/2023 11/01/2022, 0508/2021, 10/20/2020, Additional history exists GFR 11/03/2023 05/04/2023, 02/23, 12/06/2022, Additional history exists Diabetic Eye Exam 11/29/2023 11/28/2022, , 12/10/2020, Additional history exists HbA1c 12/21/2023 06/22/2023, 10/23, 07/27/2022, Additional history exists CKD HGB USE SMARTSET 34751 05/04/202405/04, 05/04/2023, 01/17/2023, Additional history exists Albumin/Creatinine [...] this encounter Medical Devices Implanted Type Area Salvationist Device Identifier Shelf Expiration Date Model / Serial / Lot Lens Intraoc 16.0 - [id number] - [id number] Implanted:Qty: 1 on 11/30/2016 by Kt Molina MD at OR [facility] Left: Eye BAUSCH & LOMB 04/23/2021 [id number] / [id number] / [id number] Lens Intraoc 16.0 - [id number] - [id number] Implanted:Qty: 1 on 12/16/2016 by Kt Molina MD at OR [facility] Right: Eye BAUSCH & LOMB 04/23/2021 [id number] / [id number] / [id number] Vectris 1x8 Compact Trial Screening Implanted:Qty: 1 on 05/19/2023 by Dimas Powers DO at OR [facility] Right: Back [employer] : NEUROLOGIC PAIN 02/11/2027 [id number] / / [id number] documented as of this encounter Visit Diagnoses Diagnosis Iron deficiency anemia due to chronic blood loss Iron deficiency anemia secondary to blood loss (chronic) documented in this encounter Advance Directives Documents on File Type Date Recorded 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 No Full Code 11/07/2009 9:32 PM 11/12/2009 9:58 PM This order reflects the patients wishes and were consensually agreed upon. Question Answer Comments Discussion of Advance Directives occurred with: Not Discussed Care Teams Panelboard Operator Relationship Specialty Start Date End Date Saritha Bishop DO 200 [facility] [place] [address] PCP - General Family Medicine 05/30/11 documented as of this encounter
--- OUTSIDE RECORDS SUMMARY | 2023-07-06 21:16 | External Medical Summary | Summary of Care ---
Author Name Unknown Organization [facility] Address [address] [facility] [place] [address] Phone [phone] Care Team Providers Care Make Up Girl Name Role Phone Dario Saritha Price DO Primary Care Provider Encounter Details Date Type Department Care Team (Late st Contact Info) Description 06/23/2023 Orders Only Hematology/Oncology [facility] Maia Burks 200 [facility] [place] [address] Richmond Carvalho MD [address] [place] [address] B12 deficiency* Allergies Active Allergy Reactions Criticality Noted Date [...] mg by mouth daily. 0 09/04/2020 Active [place]-3 1000 MG Oral Capsule Take by mouth. [...] SUNDAYS 100 Tablet 1 03/03/2023 Active Pyridostigmine [place] 60 MG Oral Tablet (Mestinon) 1/2 tab [...] mRNA, LNP-s, No Pre serve, 2-Dose Series ([email or web address]) 05/18/2021,10/04/2020,09/06/2020 Pneumococcal Conjugate Vacc, 13 Valent (Prevnar) [...] as of this encounter Progress Notes * Richmond Carvalho MD - 06/23/2023 6:51 AM EST Blood workup done on 06/22/2023: - Vitamin B-12 [...] week x 4 and then once a month. documented in this encounter Plan of Treatment Upcoming Encounters Date Type Department Care Team (Late st Contact Info) Description 06/24/2023 11:20 AM EST Office Visit Neurology [facility] [address] [place] [address] Contreras Enriquez, DO [address] [place] [address] 06/28/2023 6:20 PM EST Office Visit Family Practice [facility] [address] [place] [address] Karol Herring MD 200 [facility] [place] [address] 08/09/2023 11:00 AM EST Telemedicine Interventional Pain Center, [facility] 132 [facility] [place] [address] Dimas Powers, DO [address] [place] [phone] 09/23/2023 11:20 AM EST Office Visit Nephrology, [address] [address] Alex Olivares MD [address] [place] [address] [place] [address] 09/30/2023 2:00 PM EST Nurse Only Ancillary [facility] [place] [address] [place] [address] [place], Nurse Annual Wellness [facility] 200 [facility] [place] [address] 11/14/2023 2:00 PM EDT Office Visit Hematology/Oncology [facility] [place] [address] [place] [address] Amauri Gustafson MD 200 [facility] [place] [address] 11/28/2023 3:00 PM EDT Office Visit Family Practice [facility] [place] 200 [facility] [place] [address] Saritha Bishop DO 200 [facility] [place] [address] 04/19/2024 11:00 AM EDT Imaging Radiology [address] 132 [place] [address] Scheduled Procedures Name Priority Associated Diagnoses Date/Ti [...] Screening 09/28/2023 09/27/2022 CKD PHOS USE SMARTSET 04717 11/02/20231 , 10/14/2021, 03/04/2020, Additional history exists TSH 11/02/2023 11/01/2022, 05/0 08/2021, 10/20/2020, Additional history exists GFR 11/03/2023 05/04/2023, 02/23, 12/06/2022, Additional history exists Diabetic Eye Exam 11/29/2023 11/28/2022, , 12/10/2020, Additional history exists HbA1c 12/21/2023 06/22/2023, 10/23, 07/27/2022, Additional history exists CKD HGB USE SMARTSET 87725 05/04/202405/04, 05/04/2023, 01/17/2023, Additional history exists Albumin/Creatinine [...] this encounter Medical Devices Implanted Type Area Plate Driller Device Identifier Shelf Expiration Date Model / Serial / Lot Lens Intraoc 16.0 - [id number] - [id number] Implanted:Qty: 1 on 11/30/2016 by Kt Molina MD at OR [facility] Left: Eye BAUSCH & LOMB 04/23/2021 [id number] / [id number] / [id number] Lens Intraoc 16.0 - [id number] - [id number] Implanted:Qty: 1 on 12/16/2016 by Kt Molina MD at OR [facility] Right: Eye BAUSCH & LOMB 04/23/2021 [id number] / [id number] / [id number] Vectris 1x8 Compact Trial Screening Implanted:Qty: 1 on 05/19/2023 by Dimas Powers DO at OR [facility] Right: Back [employer] : NEUROLOGIC PAIN 02/11/2027 [id number] / / [id number] documented as of this encounter Visit Diagnoses Diagnosis B12 deficiency- Primary Other B-complex deficiencies documented in this encounter Advance Directives Documents on File Type Date Recorded 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 No Full Code 11/07/2009 9:32 PM 11/12/2009 9:58 PM This order reflects the patients wishes and were consensually agreed upon. Question Answer Comments Discussion of Advance Directives occurred with: Not Discussed Care Teams Make Up Girl Relationship Specialty Start Date End Date Saritha Bishop DO [address] [place] [address] PCP - General Family Medicine 05/30/11 documented as of this encounter
--- OUTSIDE RECORDS SUMMARY | 2023-07-06 21:16 | External Medical Summary | Summary of Care ---
Author Name Unknown Organization [facility] Address [address] [place] [address] Phone [phone] Care Team Providers Care Radiology Physician Assistant Name Role Phone Saritha Bishop DO Primary Care Provider Reason for Visit * Reason Onset Date Comments Test Results 06/21/2023 Encounter Details Date Type Department Care Team (Late st Contact Info) Description 06/21/2023 Telephone Family Practice [facility] 200 [facility] [place] [address] Saritha Bishop DO 200 [facility] [place] [address] Test Results Allergies Active Allergy Reactions Criticality [...] mg by mouth daily. 0 09/04/2020 Active [place]-3 1000 MG Oral Capsule Take by mouth. [...] SUNDAYS 100 Tablet 1 03/03/2023 Active Pyridostigmine [place] 60 MG Oral Tablet (Mestinon) 1/2 tab [...] mRNA, LNP-s, No Pre serve, 2-Dose Series ([employer]) 05/18/2021,10/04/2020,09/06/2020 Pneumococcal Conjugate Vacc, 13 Valent (Prevnar) [...] encounter Miscellaneous Notes * Telephone Encounter - Indu Gutierrez OSA - 06/23/2023 3:09 PM EST Patient is calling in regards to the previous messages. She went to the ER and she is currently in the process of getting discharged. She states that when she spoke with Kelsea yesterday that she was to come in for an infusion tomorrow but was never given a time. She is wondering if she still should come in. Please advise: [phone] * Telephone Encounter - Kelsea Bai RN [...] if needed. Patient agreeable, will go to [facility]. Called [facility] ER to make them aware patient is coming, spoke to Jocelynn Brasher. * Telephone Encounter - Kelsea Bai RN - 06/22/2023 1:51 PM EST [place] plan built and routed for signature. Waiting [...] to have a permanent stimulator placed at [facility]. Advised her that we will follow [...] there is anything else he suggests. Called [facility] and was transferred to pre-admission testing. [...] him. Blood workup done on 06/13/2023 at [facility]: -WBC 9300, H&H of 7.2/20.7, Platelet count of 234359, MCV of 96.7. -BUN/Creat: 40/1.1. Calcium 8.1 [...] 06/21/2023 3:26 PM EST Linda with [facility] called in regards to the patient's pre op labs coming back. She said that her Hemoglobin was 7.2 and her hematocrit was 23.7. The patient has an appt with Dr. Herring on 06/28/2023 for a pre op appt but the PA from [place] wanted us to be aware of thelab results before then. documented in this encounter Plan of Treatment Upcoming Encounters Date Type Department Care Team (Late st Contact Info) Description 06/24/2023 11:20 AM EST Office Visit Neurology [facility] [address] [place] [address] Contreras Enriquez, DO 200 [facility] [place] [address] 06/28/2023 6:20 PM EST Office Visit Family Practice [facility] [place] [address] [place] [address] Karol Herring MD 200 [facility] [place] [address] 08/09/2023 11:00 AM EST Telemedicine Interventional [facility] Center, [facility] [place] [address] Dimas Powers, DO [facility] [place] [phone] 09/23/2023 11:20 AM EST Office Visit Nephrology, [address] [phone] Alex Olivares MD [address] [place] [phone] 09/30/2023 2:00 PM EST Nurse Only Ancillary [facility] [place] [address] [place] [address] Kimmie, Nurse Annual Wellness [facility] [place] [address] 11/14/2023 2:00 PM EDT Office Visit Hematology/Oncology [facility] [place] [address] [place] [address] Amauri Gustafson MD 200 [facility] [place] [address] 11/28/2023 3:00 PM EDT Office Visit Family Practice [facility] 200 [facility] [place] [address] Saritha Bishop DO 200 [facility] [place] [address] 04/19/2024 11:00 AM EDT Imaging Radiology [address] [facility] [place] [address] Scheduled Procedures Name Priority Associated Diagnoses Date/Ti [...] Screening 09/28/2023 09/27/2022 CKD PHOS USE SMARTSET 04192 11/02/2023 04/1 , 10/14/2021, 03/04/2020, Additional history exists TSH 11/02/2023 11/01/2022, 05/0 08/2021, 10/20/2020, Additional history exists GFR 11/03/2023 05/04/2023, 08/03/2023, 12/06/2022, Additional history exists Diabetic Eye Exam 11/29/2023 11/28/2022, , 12/10/2020, Additional history exists HbA1c 12/21/2023 06/22/2023, 04/1 , 07/27/2022, Additional history exists CKD HGB USE SMARTSET 18164 05/04/202405/04, 05/04/2023, 01/17/2023, Additional history exists Albumin/Creatinine [...] encounter Medical Devices Implanted Type Area Senior Electrical Engineer Device Identifier Shelf Expiration Date Model / Serial / Lot Lens Intraoc 16.0 - [id number] - [id number] Implanted:Qty: 1 on 11/30/2016 by Kt Molina MD at OR [facility] Left: Eye BAUSCH & LOMB 04/23/2021 [id number] / [id number] / [id number] Lens Intraoc 16.0 - [id number] - [id number] Implanted:Qty: 1 on 12/16/2016 by Kt Molina MD at OR [facility] Right: Eye BAUSCH & LOMB 04/23/2021 [id number] / [id number] / [id number] Vectris 1x8 Compact Trial Screening Implanted:Qty: 1 on 05/19/2023 by Dimas Powers DO at OR [facility] Right: Back [employer] : NEUROLOGIC PAIN 02/11/2027 [id number] / / [id number] documented as of this encounter Visit Diagnoses Diagnosis Other iron deficiency anemia- Primary documented in this encounter Advance Directives Documents on File Type Date Recorded Patient Nursing Home Admissions Director Expl anation Advance Directives and Living Will [...] the patient have Health Care Power of Oracle Fusion Consultant? No Full Code 11/07/2009 9:32 PM 11/12/2009 9:58 PM This order reflects the patients wishes and were consensually agreed upon. Question Answer Comments Discussion of Advance Directives occurred with: Not Discussed Care Teams Radiology Physician Assistant Relationship Specialty Start Date End Date Saritha Bishop DO [address] [place] [address] PCP - General Family Medicine 05/30/11 documented as of this encounter
--- OUTSIDE RECORDS SUMMARY | 2023-07-06 21:16 | External Medical Summary | Summary of Care ---
Author Name Unknown Organization [facility] Address [address] [place] [address] Phone [phone] Care Team Providers Care Environmental Protection Officer Name Role Phone Saritha Bishop DO Primary Care Provider Reason for Visit * Reason Onset Date Comments Test Results 06/21/2023 Encounter Details Date Type Department Care Team (Late st Contact Info) Description 06/21/2023 Telephone Family Practice [facility] 200 [facility] [place] [address] Saritha Bishop DO 200 [facility] [place] [address] Test Results Allergies Active Allergy Reactions Criticality [...] mg by mouth daily. 0 09/04/2020 Active Garnavillo-3 1000 MG Oral Capsule Take by mouth. [...] SUNDAYS 100 Tablet 1 03/03/2023 Active Pyridostigmine [place] 60 MG Oral Tablet (Mestinon) 1/2 tab [...] encounter Miscellaneous Notes * Addendum Note - Pina Bai RN [...] (but will get first injection here tomorrow). [place] plan for B12 built and routed for [...] she still should come in. Please advise: [phone] * Telephone Encounter - Pina Bai RN [...] needed. Patient agreeable, will go to [facility]. Called [facility] ER to make them aware patient is coming, spoke to Jennifer. * Telephone Encounter - Pina Bai RN - 06/22/2023 1:51 PM EST [place] plan built and routed for signature. Waiting [...] have a permanent stimulator placed at [facility]. Advised her that we will follow up [...] is anything else he suggests. Called [facility] and was transferred to pre-admission testing. Left [...] him. Blood workup done on 06/13/2023 at [facility]: -WBC 9300, H&H of 7.2/20.7, Platelet count of 584672, MCV of 96.7. -BUN/Creat: 40/1.1. Calcium 8.1 [...] - 06/21/2023 3:26 PM EST Linda with [facility] called in regards to the patient's pre op labs coming back. She said that her Hemoglobin was 7.2 and her hematocrit was 23.7. The patient has an appt with Dr. Herring on 06/28/2023 for a pre op appt but the PA from [facility] wanted us to be aware of thelab results before then. documented in this encounter Plan of Treatment Upcoming Encounters Date Type Department Care Team (Late st Contact Info) Description 06/24/2023 11:20 AM EST Office Visit Neurology [place] [facility] Flannery [address] [place] [address] Contreras Enriquez, [address] [place] [address] 06/28/2023 6:20 PM EST Office Visit [facility] [place] [address] [place], [place] [address] Karol Herring MD [address] [place], [place] [address] 06/30/2023 3:00 PM EST Office Visit [facility] [place] [address] [place] [address] Saritha Bishop, DO [address] [place] [address] 08/09/2023 11:00 AM EST Telemedicine Interventional [facility], [facility] [address] [place] [address] Dimas Powers, DO [facility] [place] [phone] 09/23/2023 11:20 AM EST Office Visit Nephrology, [address] [address] Alex Olivares MD [address] [place] [address] 09/30/2023 2:00 PM EST Nurse Only Ancillary [facility] [place] [address] [place], [place] [address] [place], Nurse Annual Wellness [facility] [address] [place], [place] [address] 11/14/2023 2:00 PM EDT Office Visit Hematology/Oncology [facility] [place] [address] [place] [address] Amauri Gustafson MD [address] [place] [address] 11/28/2023 3:00 PM EDT Office Visit Family Practice [facility] 200 [facility] [place] [address] Saritha Bishop, [address] [place] [address] 04/19/2024 11:00 AM EDT Imaging Radiology [address] [place] [address] Scheduled Procedures Name Priority Associated Diagnoses Date/Ti [...] Screening 09/28/2023 09/27/2022 CKD PHOS USE SMARTSET 13494 11/02/202310/23, 10/14/2021, 03/04/2020, Additional history exists TSH 11/02/2023 11/01/2022, 05/0 08/2021, 10/20/2020, Additional history exists GFR 11/03/2023 05/04/2023, 08/2 03/2023, 12/06/2022, Additional history exists Diabetic Eye Exam 11/29/2023 11/28/2022, , 12/10/2020, Additional history exists HbA1c 12/21/2023 06/22/2023, 04, 07/27/2022, Additional history exists CKD HGB USE SMARTSET 58043 05/04/202405/04, 05/04/2023, 01/17/2023, Additional history exists Albumin/Creatinine [...] this encounter Medical Devices Implanted Type Area Environmental Assistant Device Identifier Shelf Expiration Date Model / Serial / Lot Lens Intraoc 16.0 - [id number] - [id number] Implanted:Qty: 1 on 11/30/2016 by Kt Molina MD at OR [facility] Left: Eye BAUSCH & LOMB 04/23/2021 [id number] / [id number] / [id number] Lens Intraoc 16.0 - [id number] - [id number] Implanted:Qty: 1 on 12/16/2016 by Kt Molina MD at OR [facility] Right: Eye BAUSCH & LOMB 04/23/2021 [id number] / [id number] / [id number] Vectris 1x8 Compact Trial Screening Implanted:Qty: 1 on 05/19/2023 by Dimas Powers DO at OR [facility] Right: Back [employer] : NEUROLOGIC PAIN 02/11/2027 [id number] / / [id number] documented as of this encounter Visit Diagnoses Diagnosis Other iron deficiency anemia- Primary documented in this encounter Advance Directives Documents on File Type Date Recorded 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 No Full Code 11/07/2009 9:32 PM 11/12/2009 9:58 PM This order reflects the patients wishes and were consensually agreed upon. Question Answer Comments Discussion of Advance Directives occurred with: Not Discussed Care Teams Environmental Protection Officer Relationship Specialty Start Date End Date Saritha Bishop DO [address] [place] [address] PCP - General Family Medicine 05/30/11 documented as of this encounter
--- OUTSIDE RECORDS SUMMARY | 2023-07-06 21:16 | External Medical Summary | Summary of Care ---
Author Name Unknown Organization [facility] Address [address] [facility] [place] [address] Phone [phone] Care Team Providers Care Shipper Name Role Phone Saritha Bishop DO Primary Care Provider Encounter Details Date Type Department Care Team (Late st Contact Info) Description 06/23/2023 Orders Only Gastroenterology, [facility] [address] [place] [address] Adilson Shelley MD [address] [place] [address] Allergies Active Allergy Reactions Criticality Noted Date [...] mg by mouth daily. 0 09/04/2020 Active Blue-3 1000 MG Oral Capsule Take by mouth. [...] SUNDAYS 100 Tablet 1 03/03/2023 Active Pyridostigmine [place] 60 MG Oral Tablet (Mestinon) 1/2 tab [...] mRNA, LNP-s, No Pre serve, 2-Dose Series (Photolitec) 05/18/2021,10/04/2020,09/06/2020 Pneumococcal Conjugate Vacc, 13 Valent (Prevnar) [...] 06/24/2023 11:20 AM EST Office Visit Neurology [facility] [address] [place] [address] Contreras Enriquez, DO 200 [facility] [place] [address] 06/28/2023 6:20 PM EST Office Visit Family Practice [facility] [place] [address] [place] [address] Karol Herring MD 200 [facility] [place] [address] 08/09/2023 11:00 AM EST Telemedicine Interventional [facility] Center, [facility] [address] [place] [address] Dimas Powers, DO [address] [place] [phone] 09/23/2023 11:20 AM EST Office Visit Nephrology, [address] [address] Alex Olivares MD [address] [place] [address] 09/30/2023 2:00 PM EST Nurse Only Ancillary [facility] [place] [address] [place] [address] [place], Nurse Annual Wellness [address] [place] [address] 11/14/2023 2:00 PM EDT Office Visit Hematology/Oncology [facility] 200 [facility] [place] [address] Amauri Gustafson MD 200 [facility] [place] [address] 11/28/2023 3:00 PM EDT Office Visit Family Practice [facility] 200 [place] [address] Saritha Bishop DO 200 [facility] [place] [address] 04/19/2024 11:00 AM EDT Imaging Radiology [address] 132 [facility] [place] [address] Scheduled Procedures Name Priority Associated Diagnoses Date/Ti [...] Screening 09/28/2023 09/27/2022 CKD PHOS USE SMARTSET 55090 11/02/2023 04, 10/14/2021, 03/04/2020, Additional history exists TSH 11/02/2023 11/01/2022, 0508/2021, 10/20/2020, Additional history exists GFR 11/03/2023 05/04/2023, 02/23, 12/06/2022, Additional history exists Diabetic Eye Exam 11/29/2023 11/28/2022, , 12/10/2020, Additional history exists HbA1c 12/21/2023 06/22/2023, 10/23, 07/27/2022, Additional history exists CKD HGB USE SMARTSET 43310 05/04/202405/04, 05/04/2023, 01/17/2023, Additional history exists Albumin/Creatinine [...] this encounter Medical Devices Implanted Type Area Prison Guard Device Identifier Shelf Expiration Date Model / Serial / Lot Lens Intraoc 16.0 - [id number] - [id number] Implanted:Qty: 1 on 11/30/2016 by Kt Molina MD at OR [facility] Left: Eye BAUSCH & LOMB 04/23/2021 [id number] / [id number] / [id number] Lens Intraoc 16.0 - [id number] - [id number] Implanted:Qty: 1 on 12/16/2016 by Kt Molina MD at OR [facility] Right: Eye BAUSCH & LOMB 04/23/2021 [id number] / [id number] / [id number] Vectris 1x8 Compact Trial Screening Implanted:Qty: 1 on 05/19/2023 by Dimas Powers DO at OR [facility] Right: Back [employer] : NEUROLOGIC PAIN 02/11/2027 [id number] / / [id number] documented as of this encounter Procedures Procedure Name Priority Date/Time Associated Diagnosis Comments UPPER GI ENDOSCOPY 06/23/2023 documented in this encounter Results * UPPER GI ENDOSCOPY (06/23/2023) 06/23/2023 Adilson Shelley MD GASTRO UPPER documented in this encounter Advance Directives Documents on File Type Date Recorded Patient Prompt Care Rn Expl anation Advance Directives and Living Will [...] the patient have Health Care Power of Natural Remedy Consultant? No Full Code 11/07/2009 9:32 PM 11/12/2009 9:58 PM This order reflects the patients wishes and were consensually agreed upon. Question Answer Comments Discussion of Advance Directives occurred with: Not Discussed Care Teams Shipper Relationship Specialty Start Date End Date Saritha Bishop DO [address] [place] [address] PCP - General Family Medicine 05/30/11 documented as of this encounter
--- OUTSIDE RECORDS SUMMARY | 2023-07-06 21:17 | External Medical Summary ---
Author Name Unknown Address Unknown Organization K01:[facility] - [address] [place] [address] Laboratory Report Ordering Provider Test Date Status EVERTON JIMENEZ 06/22/2023 14:51:01 Final Observation Date Value Abnormality Reference (Units ) Status Folic Acid 06/22/2023 14:51:01 >20.0 >4.5 (ng/ mL) Final Performing Location [facility] - [address] [place] [address]
--- OUTSIDE RECORDS SUMMARY | 2023-07-06 21:17 | External Medical Summary ---
Author Name Unknown Address Unknown Organization K01:[facility] - [address] [place] [address] Laboratory Report Ordering Provider Test Date Status EVERTON JIMENEZ 06/22/2023 14:51:01 Final Observation Date Value Abnormality Reference (Units ) Status Ferritin 06/22/2023 14:51:01 12 Below low normal 13- 150 (ng/mL) Final Postmenopausal women have hi gher ferritin levels than pre-menopausal women. The above reference interval is based on pre-menopausal women. Performing Location [facility] - [address] [place] [address]
--- OUTSIDE RECORDS SUMMARY | 2023-07-06 21:17 | External Medical Summary ---
Author Name Unknown Address Unknown Organization K01:LABORATORY [facility] [facility] - [address] [place] [address] Laboratory Report Ordering Provider Test Date Status EVERTON JIMENEZ 06/22/2023 14:51:01 Final Observation Date Value Abnormality Reference (Units ) Status Iron 06/22/2023 14:51:01 15 Below low normal 33-151 (ug/dL) Final Iron-binding capacity 06/22/2023 14:51:01 288 250-425 (ug/dL) Final Transferrin Sat % 06/22/2023 14:51:01 5 Below low normal 15-55 (%) Final Performing Location LABORATORY [facility] - [address] [place] [address]
--- OUTSIDE RECORDS SUMMARY | 2023-07-06 21:17 | External Medical Summary ---
Author Name Unknown Address Unknown Organization K01:[facility] [address] [place] [address] Laboratory Report Ordering Provider Test Date Status EVERTON JIMENEZ 06/22/2023 14:51:01 Final Observation Date Value Abnormality Reference (Units ) Status Vitamin B12 06/22/2023 14:51:01 228 Below low normal 2 32-1245 (pg/mL) Final Performing Location [facility] - [address] [place] [address]
--- OUTSIDE RECORDS SUMMARY | 2023-07-06 21:17 | External Medical Summary ---
Author Name Unknown Address Unknown Organization K01:LABORATORY [facility] - [address] [facility] [address] Laboratory Report Ordering Provider Test Date Status SATNAM DEL TORO 06/22/2023 14:51:01 Final Observation Date Value Abnormality Reference (Units ) Status HbA1C 06/22/2023 14:51:01 7.2 Above high normal 4. 0-5.6 (%) Final The use of HbA1c to monitor glycemic status is based on normal hemoglobin and HbA composition. This test should not be used in patients with abnormal hemoglobin that affects the half life of the red blood cell or the in vivo glycation rates. Glucose, estimated average 06/22/2023 14:51:01 160 Above high normal <126 (mg/dL) Carlos lambert Performing Location LABORATORY [facility] - [address] [facility] [address]
[2023-07-06] MEDS: ROPINIROLE 4 MG PO SCH (22:27)
[2023-07-06] MEDS: traZODone HCL 50 MG TAB PO SCH (22:28)
[2023-07-07 01:16] LABS: Hematocrit (blood only) 24.4 % (37.0-47.0); Hemoglobin 7.6 g/dl (12.0-16.0)
[2023-07-07] MEDS: PANTOprazole 40 MG in DEXTROSE 5% MINI-B 100 ML IV SCH ×5 (02:12→22:26)
--- OUTSIDE RECORDS SUMMARY | 2023-07-07 03:05 | External Medical Summary | Summary of Care ---
Author Name Unknown Organization [facility] Address [address] [facility] [place] [address] Phone [phone] Care Team Providers Care Culinary Assistant Name Role Phone Dario Saritha Price DO Primary Care Provider Reason for Visit * Reason Onset Date Comments Other 07/01/2023 Encounter Details Date Type Department Care Team (Late st Contact Info) Description 07/01/2023 Telephone Gastroenterology, [facility] [email or web address] [place] [address] Yuki Horton MD [address] [place] [address] Other Allergies Active Allergy Reactions Criticality Noted [...] mg by mouth daily. 0 09/04/2020 Active Gail-3 1000 MG Oral Capsule Take by mouth. [...] Telephone Encounter - Concepcion Zavaleta RN - 07/06/2023 10:41 AM EST Pt was sent to the ER today; will need to wait until she is out of the hospital to arrange VCE. do you still want her to keep iron infusions at ? * Telephone Encounter - Myriam Underwood OSA [...] Bai RN - 07/04/2023 8:22 AM EST [place] is signed. Scheduling: please call patient to schedule 2 hour appt "200mg venofer 07/28" (Dr Yuki Horton). Thanks! Patient will need 200mg venofer once a week x4. * Telephone Encounter - Kelsea Bai RN - 07/01/2023 4:39 PM EST [place] plan built and routed for signature. Prior auth not needed for venofer. Can schedule once [place] plan is signed. * Telephone Encounter - Concepcion Zavaleta RN - 07/01/2023 4:27 PM EST [facility] are you able to help [...] 11:00 AM EST Hem/Onc Treatment Hematology/Oncology Treatment, [place] 200 [facility] [place] [address] [place], Chair 10 Hem Onc [address] [place] [address] 08/09/2023 11:00 AM EST Telemedicine Interventional Pain Center, [facility] [address] [place] [address] Dimas Powers DO [address] [place] [phone] 09/23/2023 11:20 AM EST Office Visit Nephrology, [address] [address] Alex Olivares MD [address] [place] [id number] 09/30/2023 2:00 PM EST Nurse Only Ancillary [facility] [place] [address] [place] [address] [place] Nurse Annual Wellness [facility] 200 [facility] [place] [address] 11/14/2023 2:00 PM EDT Office Visit Hematology/Oncology [facility] [place] [address] [place] [address] Amauri Gustafson MD 200 [facility] [place] [address] 11/28/2023 3:00 PM EDT Office Visit Family Practice [facility] 200 [facility] [place] [address] Saritha Bishop DO 200 [facility] [place] [address] 04/19/2024 11:00 AM EDT Imaging Radiology [address] 132 [facility] [place] [address] Scheduled Procedures Name Priority Associated Diagnoses Date/Ti [...] Screening 09/28/2023 09/27/2022 CKD PHOS USE SMARTSET 80725 11/02/202310/23, 10/14/2021, 03/04/2020, Additional history exists TSH 11/02/2023 11/01/2022, 05/08/2021, 10/20/2020, Additional history exists Diabetic Eye Exam 11/29/2023 11/28/2022, , 12/10/2020, Additional history exists HbA1c 12/21/2023 06/22/2023, 10/23, 07/27/2022, Additional history exists GFR 12/30/2023 06/30/2023, 04/24, 03/22/2023, Additional history exists Albumin/Creatinine Ratio 05/25/2024 023, 04/26/2022, 10/27/2020, Additional history exists CKD HGB USE SMARTSET 94045 07/05/202407/05, 06/30/2023, 06/24/2023, Additional history exists DTaP,Tdap,and [...] this encounter Medical Devices Implanted Type Area Epic Ambulatory Analysts Device Identifier Shelf Expiration Date Model / Serial / Lot Lens Intraoc 16.0 - [id number] - [id number] Implanted:Qty: 1 on 11/30/2016 by tK Molina MD at OR [facility] Left: Eye BAUSCH & LOMB 04/23/2021 [id number] / [id number] / [id number] Lens Intraoc 16.0 - [id number] - [id number] Implanted:Qty: 1 on 12/16/2016 by Kt Molina MD at OR [facility] Right: Eye BAUSCH & LOMB 04/23/2021 [id number] / [id number] / [id number] Vectris 1x8 Compact Trial Screening Implanted:Qty: 1 on 05/19/2023 by Dimas Powers DO at OR [facility] Right: Back [employer] : NEUROLOGIC PAIN 02/11/2027 [id number] / / [id number] documented as of this encounter Advance Directives Documents on File Type Date Recorded Patient Cook 3 Pastry Expl anation Advance Directives and Living Will [...] the patient have Health Care Power of Can Worker? No Full Code 11/07/2009 9:32 PM 11/12/2009 9:58 PM This order reflects the patients wishes and were consensually agreed upon. Question Answer Comments Discussion of Advance Directives occurred with: Not Discussed Care Teams Culinary Assistant Relationship Specialty Start Date End Date Saritha Bishop DO [address] [place] [address] PCP - General Family Medicine 05/30/11 documented as of this encounter
--- OUTSIDE RECORDS SUMMARY | 2023-07-07 03:05 | External Medical Summary | Summary of Care ---
Author Name Unknown Organization [facility] Address [address] [place] [address] Phone [phone] Care Team Providers Care Candy Supervisor Name Role Phone Saritha Bishop DO Primary Care Provider Reason for Visit * Reason Onset Date Comments Other 07/06/2023 Encounter Details Date Type Department Care Team (Late st Contact Info) Description 07/06/2023 Telephone Gastroenterology, [facility] [address] [place] [id number] Yuki Horton MD [address] [place] [address] Other Allergies Active Allergy Reactions Criticality Noted [...] mg by mouth daily. 0 09/04/2020 Active Ottawa-3 1000 MG Oral Capsule Take by mouth. [...] mRNA, LNP-s, No Pre serve, 2-Dose Series (Particle) 05/18/2021,10/04/2020,09/06/2020 Pneumococcal Conjugate Vacc, 13 Valent (Prevnar) [...] Encounter - Concepcion Zavaleta RN - 07/06/2023 10:03 AM EST TT sent to Dr. Horton * Telephone Encounter - Concepcion Zavaleta RN - 07/06/2023 9:53 AM EST I called the patient. She reports she is feeling lightheaded and short of breath. Also having dark stools again. She is agreeable to going to the ER. She will go to [facility]. She has someone to drive her. Called [facility] ER and let them know of recent lab work and that she is coming to there ER. * Telephone Encounter - Concepcion Zavaleta RN - 07/06/2023 9:53 AM EST ----- Message from Yuki Horton MD sent at 07/06/2023 9:40 AM EST ----- Nurses - Please call patient - is she still having dark stool? Would suggest hospital admission fortransfusion, and to expedite colonoscopy. Can we arrange for admission. [place] - FYI documented in this encounter Plan of Treatment Upcoming Encounters Date Type Department Care Team (Late st Contact Info) Description 07/11/2023 11:00 AM EST Hem/Onc Treatment Hematology/Oncology Treatment, [place] [address] [place] [address] Park, Chair 10 Hem Onc Scenery [address] [place] [id number] 08/09/2023 11:00 AM EST Telemedicine Interventional Pain Center, [facility] 132 [facility] [place] [address] Dimas Powers, DO [address] [facility] [place] [phone] 09/23/2023 11:20 AM EST Office Visit Nephrology, [address] [id number] Alex Olivares MD [address] [place] [phone] 09/30/2023 2:00 PM EST Nurse Only Ancillary [facility] Kimmie [place] [address] [place] [address] Kimmie, Nurse Annual Wellness [facility] [place] [address] 11/14/2023 2:00 PM EDT Office Visit Hematology/Oncology [facility] [place] [address] [place] [address] Amauri Gustafson MD [address] [place] [address] 11/28/2023 3:00 PM EDT Office Visit Family Practice [facility] [place] [address] [place] [address] Saritha Bishop DO [address] [facility] [place] [address] 04/19/2024 11:00 AM EDT Imaging Radiology [facility] [address] [facility] [place] [address] Scheduled Procedures Name Priority Associated Diagnoses Date/Ti me COLONOSCOPY FLEXIBLE PROXIMAL DIAGNOSTIC Recall Screen for colon cancer Health Maintenance Due Date Last Done Comments Hepatitis B (1 of 3 - Risk 3-dose series) 2005 COVID-19 Vaccine (4 - 2022-24 season) 2023 05/18/2021, 10/04/2020, 09/06/2020 Influenza Vaccine (FLU shot) (#1) 2023 07/12/2022, 05/18/2021, 04/08/2020, Additional history exists Diabetic Foot Exam 07/29/2023 07/29/2022, 10/12/2021 Depression Screening 09/28/2023 09/27/2022 CKD PHOS USE SMARTSET 27850 11/02/2023 04, 10/14/2021, 03/04/2020, Additional history exists TSH 11/02/2023 11/01/2022, 08/2021, 10/20/2020, Additional history exists Diabetic Eye Exam 11/29/2023 11/28/2022, , 12/10/2020, Additional history exists HbA1c 12/21/2023 06/22/2023, 10/23, 07/27/2022, Additional history exists GFR 12/30/2023 06/30/2023, 04/24, 03/22/2023, Additional history exists Albumin/Creatinine Ratio 05/25/202405/25/ 023, 04/26/2022, 10/27/2020, Additional history exists CKD HGB USE SMARTSET 36651 07/05/202407/05, 06/30/2023, 06/24/2023, Additional history exists DTaP,Tdap,and [...] this encounter Medical Devices Implanted Type Area Route Rider Device Identifier Shelf Expiration Date Model / Serial / Lot Lens Intraoc 16.0 - [id number] - [id number] Implanted:Qty: 1 on 11/30/2016 by Kt Molina MD at OR [facility] Left: Eye [employer] 04/23/2021 [id number] / [id number] / [id number] Lens Intraoc 16.0 - [id number] - [id number] Implanted:Qty: 1 on 12/16/2016 by Kt Molina MD at OR [facility] Right: Eye [employer] 04/23/2021 [id number] / [id number] / [id number] Vectris 1x8 Compact Trial Screening Implanted:Qty: 1 on 05/19/2023 by Dimas Powers DO at OR [facility] Right: Back [employer] : NEUROLOGIC PAIN 02/11/2027 [id number] / / [id number] documented as of this encounter Advance Directives Documents on File Type Date Recorded Patient Electronic Publisher Expl anation Advance Directives and Living Will [...] patient have Health Care Power of Senior Java Developer? No Full Code 11/07/2009 9:32 PM 11/12/2009 9:58 PM This order reflects the patients wishes and were consensually agreed upon. Question Answer Comments Discussion of Advance Directives occurred with: Not Discussed Care Teams Candy Supervisor Relationship Specialty Start Date End Date Saritha Bishop DO [address] [place] [address] PCP - General Family Medicine 05/30/11 documented as of this encounter
[2023-07-07] MEDS: traMADol HCL 50 MG TABLET PO PRN ×3 (05:35→18:12)
[2023-07-07] MEDS: LEVOTHYROXINE SODIUM 50 MCG TABLET PO SCH (05:36)
[2023-07-07 07:07] LABS: Basophils # (auto) 0.02 K/uL (0.00-0.20); Basophils % (auto) 0.3 %; Eosinophils # (auto) 0.07 K/uL (0.00-0.50); Eosinophils % (auto) 1.2 %; Hematocrit (blood only) 28.2 % (37.0-47.0); Immature Granulocytes # (auto) 0.06 K/uL (0.01-0.20); Lymphocytes # (auto) 1.93 K/uL (1.20-3.40); Lymphocytes % (auto) 33.6 %; Mean Corpuscular Hemoglobin 29.2 pg (25.0-34.0); Mean Corpuscular Hgb Conc 31.9 g/dL (32.0-36.0); Mean Corpuscular Volume 91.6 fL (80.0-100.0); Mean Platelet Volume 10.3 fL (9.4-12.4); Monocytes # (auto) 0.47 K/uL (0.11-0.59); Monocytes % (auto) 8.2 %; Neutrophils # (auto) 3.19 K/uL (1.40-6.50); Neutrophils % (auto) 55.7 %; Platelet Count 267 K/uL (130-400); RDW Coefficient of Variation 21.2 % (11.5-14.5); RDW Standard Deviation 67.7 fL (36.4-46.3); Red Blood Count 3.08 M/uL (4.20-5.40); White Blood Count 5.74 K/ul (4.8-10.8)
[2023-07-07 07:17] LABS: BUN Creatinine Ratio 21.3 (10-20); Calcium 8.2 mg/dl (8.6-10.3); Creatinine Clr Calc Pharmacy 40.8 ml/min; Est GFR (African American) 57.3 ml/min; Est GFR (Non-African American) 49.5 ml/min; Potassium 4.7 mmol/L (3.5-5.1)
[2023-07-07 07:28] LABS: Anisocytosis Present; Polychromasia 1+
[2023-07-07] MEDS: amLODIPine BESYLATE 5 MG TAB PO SCH (08:17)
[2023-07-07] MEDS: predniSONE 20 MG TAB PO SCH (08:18)
[2023-07-07] MEDS: FLUTICASONE PROPIONATE NA SPR 16 GM BTL NAE SCH (08:18)
--- NOTE | 2023-07-07 08:54 | Electrocardiogram Report ---
Test Reason : Blood Pressure : / mmHG Vent. Rate : 094 BPM Atrial Rate : 094 BPM P-R Int : 148 ms QRS Dur : 078 ms QT Int : 342 ms P-R-T Axes : 056 -15 053 degrees QTc Int : 427 ms Normal sinus rhythm Low voltage QRS Borderline ECG When compared with ECG of 22-JUN-2023 18:45, No significant change was found Confirmed by Guy Williamson ([id number]) on 07/07/2023 8:54:09 AM Referred By: Confirmed By:Guy Williamson
[2023-07-07] MEDS: INSULIN ASPART PER UNIT CHARGE SC SCH ×4 (08:59→21:18)
[2023-07-07] MEDS ORDERED: MAGNESIUM PO SCH (09:00)
[2023-07-07] MEDS ORDERED: [UNRECOGNIZED DRUG - OTHER] PO SCH (09:00)
--- NOTE | 2023-07-07 09:16 | Gastrointestinal Consultation ---
Date of Consultation July 07, 2023 Assessment & Plan (1) Symptomatic anemia: 77 year old female with history of A-fib (not anticoagulated), HTN, dyslipidemia, CKD, anemia of chronic disease following with Hem/onc), hypothyroidism, T2DM, breast cancer in the status post chemo and bone marrow transplant, mood disorder, myasthenia gravis (on prednisone) PUD S/P Billroth II in the admitted with acute on chronic anemia, black stool last week. Recent admission in May for the same with negative EGD. Will discuss with attending but tentative plan for EGD/Colonoscopy Tuesday AM. TrendH&H. Monitor and documnt GI output. Transfuse PRN per primary team. PO PPI BID. Not on AC. No NSAIDs. We appreciate assistance in the management of any serological abnormality and corrections to include: hemoglobin >7, INR <2, platelets >50,000, potassium levels >3.5 but <5.3, and sodium levels within 5 points of the reference range prior to endoscopic evaluation. Supervising Physician Co-Signing Physician Notes I have personally seen and examined the patient with SHERRON Valdez. Her note reflects my exam and findings. I agree with her impression and plan. Plan for EGD/Colonoscopy tomorrow. Calvin Cohen M.D. History of Present Illness Reason for Consultation: anemia Requesting Physician: Xiomy Attending Physician: Justin Stauffer MD History of Present Illness 77 year old female with history of A-fib (not anticoagulated), HTN, dyslipidemia, CKD, anemia of chronic disease following with Hem/onc), hypothyroidism, T2DM, breast cancer in the status post chemo and bone marrow transplant, mood disorder, myasthenia gravis (on prednisone) PUD S/P Billroth II in the admitted with acute on chronic anemia. Pt was seen and evaluated, chart reviewed. Notes that about 1-2 weeks ago had dark, black tarry stools. Suggests these slowly improved and now is passing dark brown stoosl daily. No BRBPR. Denies abd pain. No nausea, vomiting. No report of black or bloody emesis. No fever, chills, CP, SOB. Frustrated as back surgery on hold given this anemia. HGB 6.8 --> 2 units --> 9 BUN 23 EGD 06/23/23: - Normal esophagus. - Patent Billroth II gastrojejunostomy was found, characterized by healthy appearing mucosa. - Normal examined jejunum. - No specimens collected. Allergies Allergy/AdvReac Type Severity Reaction Status Date / Time Sulfa (Sulfonamide Allergy Intermediate HIVES Verified 07/06/23 14:54 Antibiotics) metoclopramide AdvReac Intermediate depression Verified 07/06/23 14:54 Home Medications Medication Instructions Recorded Confirmed Type fluticasone propionate 50 2 spray intranasal QAM 10/15/18 07/06/23 History mcg/actuation nasal spray,suspension levothyroxine 50 mcg tablet 0 mcg PO DAILY 10/15/18 07/06/23 History trazodone 50 mg tablet 75 mg PO HS 10/15/18 07/06/23 History ropinirole 4 mg tablet,extended 4 mg PO HS 06/17/20 07/06/23 History release 24 hr Wheelchair (Manual) #1 ea 01/01/21 06/22/23 Rx multivitamin 1 tab PO QAM 02/11/22 07/06/23 History magnesium malate, chelate 1,000 mg PO DAILY 07/09/22 07/06/23 History ynffnfft-chc-zbesvn 5 mg-zeaxanth 1 cap PO DAILY 07/09/22 07/06/23 History 1 mg-bilberry 7.5 mg-herbal capsule (Amplify.LA Health Formula) tramadol 50 mg tablet 50 mg PO Q6H PRN Severe Pain 07/09/22 07/06/23 History (Scale Score 7-10) pantoprazole 40 mg tablet,delayed 40 mg PO QAM #30 tabs 07/12/22 07/06/23 Rx release amoxicillin 500 mg tablet 2,000 mg PO DIRECTED PRN PRIOR 07/20/22 07/06/23 H istory TO PROCEDURE omega-3 fatty acids 1,000 mg 1,000 mg PO DAILY 07/20/22 07/06/23 History capsule lifitegrast 5 % eye drops in a 1 drp ophthalmic (eye) BID 06/14/23 07/06/23 History dropperette (Xiidra) prednisone 20 mg tablet 20 mg PO QAM 06/14/23 07/06/23 History prazosin 1 mg capsule 1 mg PO Q OTHER DAY 06/22/23 07/06/23 History amlodipine 2.5 mg tablet 2.5 mg PO DAILY 07/06/23 07/06/23 History empagliflozin 10 mg tablet 10 mg PO QAM 07/06/23 07/06/23 History (Jardiance) misoprostol 200 mcg tablet 200 mcg PO QID 07/06/23 07/06/23 History Patient History Medical History GERD (gastroesophageal reflux disease) controlled Myasthenia gravis on prednisone daily follows with S neuro Diabetes mellitus, type II HTN (hypertension) History of COVID-12 JUNE 2020 (HOSPITALIZED AT [facility])- denies current issues April 2022- symptoms resolved Polycystic ovarian disease no issues currently Spinal stenosis Hx of gastric ulcer RESULTING IN GASTRECTOMY (2012) Lyme disease x2 hx- treated (no current issues) anaplasmosis - 2019- treated (no current issues) History of TMJ disorder stable - mostly pain when flared up - no locking Macular degeneration History of depression Hx of migraines HX: breast cancer 1993- lumpectomy and chemo Hx of sleep apnea Was on BiPAP in the past- no issues since 2007 (was re-tested) CKD (chronic kidney disease), stage III stable Anemia due to chronic kidney disease pt states has issues w/ anemia Jun 2022- admitted to [facility] (black tarry stools)- was transfused RLS (restless legs syndrome) Chronic sinusitis stable Hypothyroidism Surgical History S/P spinal surgery 09/2021 lumbar- [facility] History of ankle surgery LEFT (12/28/20) History of esophagogastroduodenoscopy (EGD) History of colonoscopy Hx of lumpectomy LEFT H/O bone marrow transplant 1993 History of tonsillectomy and adenoidectomy History of total right hip replacement History of cataract surgery RT/LEFT H/O oophorectomy History of appendectomy H/O sinus surgery History of partial mastectomy of left breast LEFT S/P subtotal gastrectomy D/T GASTRIC ULCERS H/O Billroth II operation Family History Father Atrial fibrillation Other No family history of adverse response to anesthesia Social History Smoking Status: Never smoker Second Hand Exposure: No; Do You Dip or Chew Tobacco: No; Hx Alcohol Use: No Hx Substance Use: No Preferred Language: Cameroonian Communication Ability: Effective Pediatric Nurse Required: No Beliefs That Will Affect Care: None marital status: / marital status details: within last 8-9 mo Current Living Situation: Alone Feels Safe at Home: Yes Safety Concerns: Feels Safe At This Time Assistive Devices: None Review of Systems Review of Systems: All systems reviewed & are unremarkable except as noted in HPI & below Physical Exam Constitutional: WD/WN, vitals as above Respiratory: normal respiratory effort, lungs clear to auscultation Cardiovascular: Rate/Rhythm: regular rate Gastrointestinal (Abdomen): normal bowel sounds, soft, nontender, no hepatosplenomegaly Skin: no rashes, warm and dry Results & Data Vital Signs (Past 12 Hours) Vital Signs Temp Pulse Pulse Pulse Resp BP BP 07/07/23 07:36 36.6 C 71 18 115/68 07/07/23 07:35 65 07/07/23 03:10 36.9 C 75 20 93/59 L 07/06/23 23:55 73 07/06/23 22:38 36.9 C 73 16 114/63 07/06/23 21:55 36.9 C 67 16 102/61 Pulse Ox O2 Del Method 07/07/23 07:36 99 Room Air 07/07/23 07:35 07/07/23 03:10 98 Room Air 07/06/23 23:55 07/06/23 22:38 95 07/06/23 21:55 97 Laboratory Results 07/07/23 07/07/23 07/07/23 Range/Units 08:52 06:23 00:47 WBC 5.74 (4.8-10.8) K/ul RBC 3.08 L (4.20-5.40) M/uL Hgb 9.0 L 7.6 L (12.0-16.0) g/dl Hct 28.2 L 24.4 L (37.0-47.0) % MCV 91.6 D (80.0-100.0) fL MCH 29.2 (25.0-34.0) pg MCHC 31.9 L (32.0-36.0) g/dL RDW Std Deviation 67.7 H (36.4-46.3) fL RDW Coeff of Tatiana 21.2 H (11.5-14.5) % Plt Count 267 (130-400) K/uL MPV 10.3 (9.4-12.4) fL Immature Gran % (Auto) 1.0 % Neut % (Auto) 55.7 % Lymph % (Auto) 33.6 % [place] % (Auto) 8.2 % Eos % (Auto) 1.2 % Baso % (Auto) 0.3 % Neut # (Auto) 3.19 (1.40-6.50) K/uL Lymph # (Auto) 1.93 (1.20-3.40) K/uL [place] # (Auto) 0.47 (0.11-0.59) K/uL Eos # (Auto) 0.07 (0.00-0.50) K/uL Baso # (Auto) 0.02 (0.00-0.20) K/uL Immature Gran # (Auto) 0.06 (0.01-0.20) K/uL Polychromasia 1+ Anisocytosis Present PT (9.0-12.0) Seconds INR (0.9-1.1) APTT (21-31) Seconds PTT Ratio Sodium 141 (136-145) mmol/L Potassium 4.7 D (3.5-5.1) mmol/L Chloride 110 H (98-107) mmol/L Carbon Dioxide 24 (21-32) mmol/L Anion Gap 7 (3-11) BUN 23 (6-23) mg/dl Creatinine 1.08 (0.6-1.2) mg/dl Est Cr Clr Drug Dosing 40.8 ml/min Est GFR ( Amer) 57.3 ml/min Est GFR (Non-Af Amer) 49.5 ml/min BUN/Creatinine Ratio 21.3 H (10-20) Glucose 103 H (70-99(Fasting)) mg/dl POC Glucose 102 H (70-99) mg/dl Calcium 8.2 L (8.6-10.3) mg/dl Total Bilirubin (0.2-1.0) mg/dl AST (13-39) U/L ALT (7-52) U/L Alkaline Phosphatase (34-104) U/L Troponin I High Sens (0-14) pg/ml Total Protein (6.0-8.3) gm/dl Albumin (3.4-5.0) gm/dl Globulin (2.5-4.0) gm/dl Albumin/Globulin Ratio (0.9-2) POC Stool Occult Blood Blood Type Antibody Screen Crossmatch 07/06/23 07/06/23 07/06/23 Range/Units 20:04 17:20 17:18 WBC (4.8-10.8) K/ul RBC (4.20-5.40) M/uL Hgb 7.1 L (12.0-16.0) g/dl Hct 23.6 L (37.0-47.0) % MCV (80.0-100.0) fL MCH (25.0-34.0) pg MCHC (32.0-36.0) g/dL RDW Std Deviation (36.4-46.3) fL RDW Coeff of Tatiana (11.5-14.5) % Plt Count (130-400) K/uL MPV (9.4-12.4) fL Immature Gran % (Auto) % Neut % (Auto) % Lymph % (Auto) % [place] % (Auto) % Eos % (Auto) % Baso % (Auto) % Neut # (Auto) (1.40-6.50) K/uL Lymph # (Auto) (1.20-3.40) K/uL [place] # (Auto) (0.11-0.59) K/uL Eos # (Auto) (0.00-0.50) K/uL Baso # (Auto) (0.00-0.20) K/uL Immature Gran # (Auto) (0.01-0.20) K/uL Polychromasia Anisocytosis PT (9.0-12.0) Seconds INR (0.9-1.1) APTT (21-31) Seconds PTT Ratio Sodium (136-145) mmol/L Potassium (3.5-5.1) mmol/L Chloride (98-107) mmol/L Carbon Dioxide (21-32) mmol/L Anion Gap (3-11) BUN (6-23) mg/dl Creatinine (0.6-1.2) mg/dl Est Cr Clr Drug Dosing ml/min Est GFR ( Amer) ml/min Est GFR (Non-Af Amer) ml/min BUN/Creatinine Ratio (10-20) Glucose (70-99(Fasting)) mg/dl POC Glucose 111 H 222 H (70-99) mg/dl Calcium (8.6-10.3) mg/dl Total Bilirubin (0.2-1.0) mg/dl AST (13-39) U/L ALT (7-52) U/L Alkaline Phosphatase (34-104) U/L Troponin I High Sens (0-14) pg/ml Total Protein (6.0-8.3) gm/dl Albumin (3.4-5.0) gm/dl Globulin (2.5-4.0) gm/dl Albumin/Globulin Ratio (0.9-2) POC Stool Occult Blood Blood Type Antibody Screen Crossmatch 07/06/23 07/06/23 Range/Units 12:54 11:50 WBC 10.47 (4.8-10.8) K/ul RBC 2.22 L (4.20-5.40) M/uL Hgb 6.8 L* (12.0-16.0) g/dl Hct 22.4 L (37.0-47.0) % MCV 100.9 H (80.0-100.0) fL MCH 30.6 (25.0-34.0) pg MCHC 30.4 L (32.0-36.0) g/dL RDW Std Deviation 67.9 H (36.4-46.3) fL RDW Coeff of Tatiana 19.5 H (11.5-14.5) % Plt Count 312 (130-400) K/uL MPV 9.5 (9.4-12.4) fL Immature Gran % (Auto) % Neut % (Auto) % Lymph % (Auto) % [place] % (Auto) % Eos % (Auto) % Baso % (Auto) % Neut # (Auto) (1.40-6.50) K/uL Lymph # (Auto) (1.20-3.40) K/uL [place] # (Auto) (0.11-0.59) K/uL Eos # (Auto) (0.00-0.50) K/uL Baso # (Auto) (0.00-0.20) K/uL Immature Gran # (Auto) (0.01-0.20) K/uL Polychromasia Anisocytosis PT 10.1 (9.0-12.0) Seconds INR 0.9 (0.9-1.1) APTT 20 L (21-31) Seconds PTT Ratio 0.7 Sodium 140 (136-145) mmol/L Potassium 3.9 (3.5-5.1) mmol/L Chloride 108 H (98-107) mmol/L Carbon Dioxide 27 (21-32) mmol/L Anion Gap 5 (3-11) BUN 30 H (6-23) mg/dl Creatinine 1.24 H (0.6-1.2) mg/dl Est Cr Clr Drug Dosing 35.6 ml/min Est GFR ( Amer) 48.5 ml/min Est GFR (Non-Af Amer) 41.9 ml/min BUN/Creatinine Ratio 24.2 H (10-20) Glucose 187 H (70-99(Fasting)) mg/dl POC Glucose (70-99) mg/dl Calcium 8.1 L (8.6-10.3) mg/dl Total Bilirubin 0.3 (0.2-1.0) mg/dl AST 19 (13-39) U/L ALT 22 (7-52) U/L Alkaline Phosphatase 48 (34-104) U/L Troponin I High Sens 7.2 (0-14) pg/ml Total Protein 4.9 L (6.0-8.3) gm/dl Albumin 3.1 L (3.4-5.0) gm/dl Globulin 1.8 L (2.5-4.0) gm/dl Albumin/Globulin Ratio 1.7 (0.9-2) POC Stool Occult Blood Pending Blood Type A Positive Antibody Screen NEGATIVE Crossmatch See Detail
[2023-07-07] MEDS ORDERED: LAVAGE SOLUTION 4000ML PO SCH (12:30)
--- NOTE | 2023-07-07 13:57 | Hospitalist Progress Note ---
Date of Service July 07, 2023 Assessment & Plan (1) Symptomatic anemia: (2) GI bleed: (3) H/O Billroth II operation: (4) S/P subtotal gastrectomy: Plan: per admitting service notes with addendum: Patient is 77-year-old PMH anemia of chronic disease, iron deficiency anemia, h/o PUD s/p Billroth 2 and had post op gastroparesis & failed treatment then had gastrectomy in 2010, h/o Breast cancer s/p surgery and chemo, CKD III, CLEMENTINA, depression, hypothyroidism, spinal stenosis, RLS, GERD, myasthenia gravis, presented to ER for significant anemia found on recent outpatient labs with Hgb of 6.4 on 07/05/2023. Reports dark color stools. 06/22/23 s/p 2 units PRBCs. 06/23/23 Hgb: 8.7. 06/23/23 EGD: normal esophagus, patent Billroth II gastrojejunostomy was found characterized by healthy-appearing mucosa, normal examined jejunum. Patient was given 2 units PRBCs with improvement of Hgb from 6.8 to 8.7. 06/24/23 IV iron Today in ER Hgb: 6.8 Possible GI bleed Reported heme+stools in ER In ER given PPI bolus and drip Continue IV PPI In ER 1unit PRBC started Repeat H&H after PRBC transfusion and likely will require another unit PRBC NPO midnight GI consult, spoke with [facility] recommends clear liquid diet and NPO midnight for possible scope tomorrow CBC, BMP in am 07/07 Status post units of packed RBCs Hemoglobin increased, now 9.0 from 7.1 No recurrence of melena or hematochezia so far Continue Protonix drip For EGD colonoscopy tomorrow (5) CKD (chronic kidney disease), stage III: Plan: Cr: 1.2. Baseline Cr: 1.1-1.2 Monitor renal functions, avoid nephrotoxic agents when possible (6) Diabetes mellitus, type II: Plan: A1c: 7.4 on 06/21/2023 Hold home Jardiance NovoLog sliding scale per protocol. (7) HTN (hypertension): Plan: Continue amlodipine (8) Myasthenia gravis: Plan: Possible myasthenia gravis. Currently following with neuro for workup Is on prednisone daily Continue prednisone (9) Hypothyroidism: Plan: Continue levothyroxine (10) RLS (restless legs syndrome): Plan: Continue ropinirole (11) HX: breast cancer: Plan: S/P surgery, chemo History bone marrow transplant DVT Prophylaxis SCDs Full Code as per discussion with pt Follows with Dr Bishop for routine care Admission and Anticipated Discharge Date Admission Date: July 06, 2023 Subjective Follow-up for GI bleed, etc. No recurrence of melena No abdominal pain, nausea vomiting no chest pain, dyspnea, palpitations, dizziness Review of Systems Review of Systems: all noted and negative except for above Physical Exam Physical Exam: General- oriented x 3, not in distress, speaks in sentences with no effort or accessory muscle use Eyes- anicteric Neck- no JVD Lungs- clear breath sounds bilaterally, no rales/wheezes Heart- normal rate, regular rhythm; no murmurs Abdomen- normal bowel sounds, nondistended, soft, nontender Extremities- no pretibial edema, no calf tenderness Neuro- alert, oriented x 3; no gross focal neurologic deficits Skin- warm & dry Results & Data Results & Data Vital Signs (Past 12 Hours) Vital Signs Temp Pulse Pulse Pulse Resp BP Pulse Ox 07/07/23 11:40 36.7 C 73 18 124/68 98 07/07/23 10:36 07/07/23 07:36 36.6 C 71 18 115/68 99 07/07/23 07:35 65 07/07/23 03:10 36.9 C 75 20 93/59 L 98 O2 Del Method 07/07/23 11:40 Room Air 07/07/23 10:36 Room Air 07/07/23 07:36 Room Air 07/07/23 07:35 07/07/23 03:10 Room Air all noted and reviewed including below (2) GI bleed GI bleed type/associated pathology: unspecified gastrointestinal hemorrhage type Qualified Code(s): K92.2 - Gastrointestinal hemorrhage, unspecified (5) CKD (chronic kidney disease), stage III Chronic kidney disease stage 3 subtype: stage 3b (GFR 30-44) Qualified Code(s): N18.32 - Chronic kidney disease, stage 3b
[2023-07-07] MEDS: traZODone HCL 50 MG TAB PO SCH (21:18)
[2023-07-07] MEDS: ROPINIROLE 4 MG PO SCH (21:19)
[2023-07-08] MEDS: PANTOprazole 40 MG in DEXTROSE 5% MINI-B 100 ML IV SCH ×4 (03:10→19:50)
[2023-07-08] MEDS: LEVOTHYROXINE SODIUM 25 MCG TABLET PO SCH (05:26)
[2023-07-08] MEDS: INSULIN ASPART PER UNIT CHARGE SC SCH ×4 (08:00→21:35)
--- NOTE | 2023-07-08 08:15 | Anesthesiology Consultation ---
Date of Service July 08, 2023 Assessment & Plan (1) Encounter for pre-operative examination: Chart Review Chart Review: Acceptable Risk for Surgery and Patient NOT seen in Pre Admission Testing Consults Requested none History Surgery Operation Date: 07/08/23 16:30 Proposed Procedures p Colonoscopy EGD Dr Zackary Raymundo, DO Height/Weight Height: 5 ft 6 in Weight: 62.1 kg Allergies Allergy/AdvReac Type Severity Reaction Status Date / Time Sulfa (Sulfonamide Allergy Intermediate HIVES Verified 07/06/23 14:54 Antibiotics) metoclopramide AdvReac Intermediate depression Verified 07/06/23 14:54 Medications Home Medications Medication Instructions Recorded Confirmed Last Taken fluticasone propionate 50 2 spray intranasal QAM 10/15/18 07/06/23 07/06/23 mcg/actuation nasal spray,suspension levothyroxine 50 mcg tablet 0 mcg PO DAILY 10/15/18 07/06/23 07/06/23 trazodone 50 mg tablet 75 mg PO HS 10/15/18 07/06/23 07/05/23 ropinirole 4 mg tablet,extended 4 mg PO HS 06/17/20 07/06/23 07/05/23 release 24 hr Wheelchair (Manual) #1 ea 01/01/21 06/22/23 Unknown multivitamin 1 tab PO QAM 02/11/22 07/06/23 07/06/23 magnesium malate, chelate 1,000 mg PO DAILY 07/09/22 07/06/23 07/06/23 [id number]-omhefh 5 mg-zeaxanth 1 cap PO DAILY 07/09/22 07/06/23 07/06/23 1 mg-bilberry 7.5 mg-herbal capsule ([employer] Formula) tramadol 50 mg tablet 50 mg PO Q6H PRN Severe Pain 07/09/22 07/06/23 07/06/23 (Scale Score 7-10) pantoprazole 40 mg tablet,delayed 40 mg PO QAM #30 tabs 07/12/22 07/06/23 07/06/23 release amoxicillin 500 mg tablet 2,000 mg PO DIRECTED PRN PRIOR 07/20/22 07/06/23 Unknown TO PROCEDURE omega-3 fatty acids 1,000 mg 1,000 mg PO DAILY 07/20/22 07/06/23 07/06/23 capsule lifitegrast 5 % eye drops in a 1 drp ophthalmic (eye) BID 06/14/23 07/06/23 07/06/23 dropperette (Xiidra) prednisone 20 mg tablet 20 mg PO QAM 06/14/23 07/06/23 07/06/23 prazosin 1 mg capsule 1 mg PO Q OTHER DAY 06/22/23 07/06/23 07/05/23 amlodipine 2.5 mg tablet 2.5 mg PO DAILY 07/06/23 07/06/23 07/06/23 empagliflozin 10 mg tablet 10 mg PO QAM 07/06/23 07/06/23 07/06/23 (Jardiance) misoprostol 200 mcg tablet 200 mcg PO QID 07/06/23 07/06/23 Unknown Active Medications Generic Name Dose Route Start Last Admin Trade Name Freq PRN Reason Stop Dose Admin Amlodipine Besylate 2.5 mg 07/07/23 09:00 07/07/23 08:17 Amlodipine Besylate 5 Mg Tab PO 08/06/23 08:59 2.5 mg DAILY MARTHA Administration Fluticasone Propionate 2 sprays 07/07/23 09:00 07/07/23 08:18 Fluticasone Propionate Na Spr 16 Gm Btl ARCHIE 08/06/23 08:59 2 sprays QAM MARTHA Administration Pantoprazole Sodium 40 mg/ 100 mls @ 20 mls/hr 07/06/23 19:30 07/08/23 07:57 Dextrose IV 08/05/23 19:29 Infused Q5H MARTHA Infusion 8 MG/HR Insulin Aspart 0 units 07/06/23 16:30 07/08/23 08:00 Insulin Aspart Per Unit Charge SC 08/05/23 16:29 Not Given ACHS MARTHA Levothyroxine Sodium 25 mcg 07/08/23 06:30 07/08/23 05:26 Levothyroxine Sodium 25 Mcg Tablet PO 08/07/23 06:29 Not Given [id number] MARTHA Levothyroxine Sodium 50 mcg 07/07/23 06:30 07/07/23 05:36 Levothyroxine Sodium 50 Mcg Tablet PO 08/06/23 06:29 50 mcg SuTh@0630 MARTHA Administration Ropinirole 4mg Er~ 1 each 07/06/23 21:00 07/07/23 21:19 Non-Formulary PO 08/05/23 20:59 1 ea Patient's Own Med HS MARTHA Administration Prednisone 20 mg 07/07/23 09:00 07/07/23 08:18 Prednisone 20 Mg Tab PO 08/06/23 08:59 20 mg QAM MARTHA Administration Tramadol HCl 50 mg 07/06/23 15:39 07/07/23 18:12 Tramadol Hcl 50 Mg Tablet PO 08/05/23 15:38 50 mg Q6H PRN Administration Severe Pain (Scale Score 7-10) Trazodone HCl 75 mg 07/06/23 21:00 07/07/23 21:18 Trazodone Hcl 50 Mg Tab PO 08/05/23 20:59 75 mg HS MARTHA Administration Past Medical History Medical History GERD (gastroesophageal reflux disease) controlled Myasthenia gravis on prednisone daily follows with [facility] neuro Diabetes mellitus, type II HTN (hypertension) History of COVID-12 JUNE 2020 (HOSPITALIZED AT [facility])- denies current issues April 2022- symptoms resolved Polycystic ovarian disease no issues currently Spinal stenosis Hx of gastric ulcer RESULTING IN GASTRECTOMY (2012) Lyme disease x2 hx- treated (no current issues) anaplasmosis - 2019- treated (no current issues) History of TMJ disorder stable - mostly pain when flared up - no locking Macular degeneration History of depression Hx of migraines HX: breast cancer 1993- lumpectomy and chemo Hx of sleep apnea Was on BiPAP in the past- no issues since 2007 (was re-tested) CKD (chronic kidney disease), stage III stable Anemia due to chronic kidney disease pt states has issues w/ anemia Jun 2022- admitted to [facility] (black tarry stools)- was transfused RLS (restless legs syndrome) Chronic sinusitis stable Hypothyroidism Past Family History Family History Father Atrial fibrillation Other No family history of adverse response to anesthesia Past Surgical History Surgical History S/P spinal surgery 09/2021 lumbar- [facility] History of ankle surgery LEFT (12/28/20) History of esophagogastroduodenoscopy (EGD) History of colonoscopy Hx of lumpectomy LEFT H/O bone marrow transplant 1993 History of tonsillectomy and adenoidectomy History of total right hip replacement History of cataract surgery RT/LEFT H/O oophorectomy History of appendectomy H/O sinus surgery History of partial mastectomy of left breast LEFT S/P subtotal gastrectomy D/T GASTRIC ULCERS H/O Billroth II operation Social History Smoking Status: Never smoker Do You Dip or Chew Tobacco: No Hx Alcohol Use: No Hx Substance Use: No substance use type: does not use Physical Exam Vital Signs Last Vital Signs Temp 36.8 C 07/08/23 07:30 Pulse 81 07/08/23 07:30 Resp 18 07/08/23 07:30 BP 104/78 07/08/23 07:30 Pulse Ox 96 07/08/23 07:30 O2 Del Method Room Air 07/08/23 07:30 Testing Laboratory Results 07/07/23 06:23 07/07/23 06:23 PT 10.1 Seconds (9.0-12.0) 07/06/23 11:50 INR 0.9 (0.9-1.1) 07/06/23 11:50 APTT 20 Seconds (21-31) L 07/06/23 11:50 Blood Type A Positive 07/06/23 11:50 Antibody Screen NEGATIVE 07/06/23 11:50 07/08/23 07/07/23 07:38 20:26 POC Glucose 111 H 191 H Electrocardiogram Date: 07/06/23 DICTATED BY: Guy Williamson MD Test Reason : Blood Pressure : / mmHG Vent. Rate : 094 BPM Atrial Rate : 094 BPM P-R Int : 148 ms QRS Dur : 078 ms QT Int : 342 ms P-R-T Axes : 056 -15 053 degrees QTc Int : 427 ms Normal sinus rhythm Low voltage QRS Borderline ECG When compared with ECG of 22-JUN-2023 18:45, No significant change was found Confirmed by Guy Williamson ([id number]) on 07/07/2023 8:54:09 AM
[2023-07-08] MEDS ORDERED: LIDOCAINE 2% 2 ML VIAL/AMP(20MG/ML) INFIL ONE ×2 (08:16)
[2023-07-08] MEDS ORDERED: PROPOFOL IV EMULSION 10 MG/ML 20 ML VIAL IV ONE ×2 (08:16)
--- NOTE | 2023-07-08 08:44 | History & Physical Bridge Note ---
Date of Service July 08, 2023 History & Physical Bridge Note I have examined the patient, reviewed the History & Physical and in the interval since the performance of the History & Physical I have noted the following changes of clinical significance: no changes noted. Patient with a history of recurrent anemia for a repeat upper endoscopy and colonoscopy today. We discussed risks to include bleeding infection perforation pain and need for follow-up studies.
[2023-07-08] MEDS ORDERED: PHENYLEPHRINE 100MCG/ML 10ML SYR IV ONE (09:22)
--- NOTE | 2023-07-08 09:26 | Communication Note ---
Date of Service: July 08, 2023 Patient underwent upper endoscopy and colonoscopy today. There was no evidence of bleeding from the proximal jejunum, colonoscopy showed no evidence of active bleeding there was a large amount of dark stool in addition to what appears to be melena in the terminal ileum. Given the patient's history I would recommend referral to a center with balloon enteroscopy capabilities.
[2023-07-08] MEDS: amLODIPine BESYLATE 5 MG TAB PO SCH (10:12)
[2023-07-08] MEDS: traMADol HCL 50 MG TABLET PO PRN ×2 (10:12→18:12)
[2023-07-08] MEDS: predniSONE 20 MG TAB PO SCH (10:13)
[2023-07-08] MEDS: FLUTICASONE PROPIONATE NA SPR 16 GM BTL NAE SCH (10:14)
--- NOTE | 2023-07-08 10:16 | Anesthesiology Progress Note ---
Date of Service July 08, 2023 Anesthesia Post Procedure Vital Signs Vital Signs: Temp Pulse Pulse Resp BP Pulse Ox O2 Del Method 07/08/23 10:13 36.5 C 70 18 115/65 98 Room Air 07/08/23 09:55 73 16 117/59 L 99 Room Air 07/08/23 09:40 77 16 112/64 100 Room Air 07/08/23 09:25 77 18 91/58 L 100 Room Air 07/08/23 08:10 36.7 C 81 16 120/61 100 Room Air 07/08/23 07:30 36.8 C 81 18 104/78 96 Room Air 07/08/23 07:16 94 H 07/08/23 02:22 36.7 C 75 18 122/58 L 98 Room Air 07/07/23 22:10 36.8 C 70 16 94/52 L 97 Room Air 07/07/23 21:57 74 07/07/23 20:17 36.6 C 71 18 118/56 L 100 Room Air 07/07/23 15:59 36.4 C L 75 18 162/77 H 98 Room Air 07/07/23 14:52 79 07/07/23 11:40 36.7 C 73 18 124/68 98 Room Air 07/07/23 10:36 Room Air Pain Intensity Right Back: Pain Intensity: 4 Transfer of Care Handoff Completed per policy Notes Mental Status: alert / awake / arousable and participated in evaluation Patient Amnestic to Procedure: Yes Nausea / Vomiting: adequately controlled Pain: adequately controlled Airway Patency, RR, SpO2: stable & adequate BP & HR: stable & adequate Hydration State: stable & adequate Anesthetic Complications: no major complications apparent and Pt Satisfied with anesthetic care
--- NOTE | 2023-07-08 10:48 | GI REPORT ---
Patient Name: Gina Brock Procedure Date: 07/08/2023 8:27 AM Date of : 1945 Admit Type: Inpatient Age: 77 Gender: Female Attending MD: Mulugeta Raymundo DO, Procedure: Upper GI endoscopy Providers: Mulugeta Raymundo DO Referring MD: Justin Stauffer Indications: Melena Medicines: Monitored Anesthesia Care Complications: No immediate complications. Estimated blood loss: Minimal. Estimated Blood Loss: Estimated blood loss was minimal. Procedure: Pre-Anesthesia Assessment: - Prior to the procedure, a History and Physical was performed, and patient medications, allergies and sensitivities were reviewed. The patient's tolerance of previous anesthesia was reviewed. - The risks and benefits of the procedure and the sedation options and risks were discussed with the patient. All questions were answered and informed consent was obtained. - Patient identification and proposed procedure were verified prior to the procedure by the physician, the nurse and the explosive ordnance technician. The procedure was verified in the procedure room. - Pre-procedure physical examination revealed no contraindications to sedation. - ASA Grade Assessment: III - A patient with severe systemic disease. - After reviewing the risks and benefits, the patient was deemed in satisfactory condition to undergo the procedure. - The anesthesia plan was to use general anesthesia. - Immediately prior to administration of medications, the patient was re-assessed for adequacy to receive sedatives. - The heart rate, respiratory rate, oxygen saturations, blood pressure, adequacy of pulmonary ventilation, and response to care were monitored throughout the procedure. - The physical status of the patient was re-assessed after the procedure. After obtaining informed consent, the endoscope was passed under direct vision. Throughout the procedure, the patient's blood pressure, pulse, and oxygen saturations were monitored continuously. The Endoscope was introduced through the mouth, and advanced to the afferent and efferent jejunal loops. The upper GI endoscopy was accomplished without difficulty. The patient tolerated the procedure well. Findings: The examined esophagus was normal. The Z-line was irregular and was found 35 cm from the incisors. Evidence of a prior subtotal gastectomy was noted (only a few cm of stomach remaining. This was characterized by healthy appearing mucosa. There was evidence of a widely patent previous surgical anastomosis (Gastrojejunal) in the afferent jejunal loop and in the efferent jejunal loop. This was characterized by healthy appearing mucosa. Impression: - Normal esophagus. - Z-line irregular, 35 cm from the incisors. - Evidence of previous supbtotal gastric surgery was found, characterized by healthy appearing mucosa. - Normal appearing proximal jejunum - No specimens collected. Recommendation: - Perform a colonoscopy today. Mulugeta Raymundo D.O. Mulugeta Raymundo, 07/08/2023 10:48:30 AM This report has been signed electronically. Note Initiated On: 07/08/2023 8:27 AM Number of Addenda: 0 I attest to the content of the Intraoperative Record and orders documented therein, exceptions below {[id number]}
--- NOTE | 2023-07-08 10:51 | GI REPORT ---
Patient Name: Gina Brock Procedure Date: 07/08/2023 8:27 AM Date of : 1945 Admit Type: Inpatient Age: 77 Gender: Female Attending MD: Mulugeta Raymundo DO, Procedure: Colonoscopy Providers: Mulugeta Raymundo DO Referring MD: Justin Stauffer Indications: Hematochezia, Melena Medicines: Monitored Anesthesia Care Complications: No immediate complications. Estimated blood loss: Minimal. Estimated Blood Loss: Estimated blood loss was minimal. Procedure: Pre-Anesthesia Assessment: - Prior to the procedure, a History and Physical was performed, and patient medications, allergies and sensitivities were reviewed. The patient's tolerance of previous anesthesia was reviewed. - The risks and benefits of the procedure and the sedation options and risks were discussed with the patient. All questions were answered and informed consent was obtained. - Patient identification and proposed procedure were verified prior to the procedure by the physician, the nurse and the adjunct faculty instructor. The procedure was verified in the procedure room. - Pre-procedure physical examination revealed no contraindications to sedation. - ASA Grade Assessment: III - A patient with severe systemic disease. - After reviewing the risks and benefits, the patient was deemed in satisfactory condition to undergo the procedure. - The anesthesia plan was to use monitored anesthesia care (MAC). - Immediately prior to administration of medications, the patient was re-assessed for adequacy to receive sedatives. - The heart rate, respiratory rate, oxygen saturations, blood pressure, adequacy of pulmonary ventilation, and response to care were monitored throughout the procedure. - The physical status of the patient was re-assessed after the procedure. After I obtained informed consent, the scope was passed under direct vision. Throughout the procedure, the patient's blood pressure, pulse, and oxygen saturations were monitored continuously. The Colonoscope was introduced through the anus and advanced to the colocolonic anastomosis. The colonoscopy was performed without difficulty. The patient tolerated the procedure well. The quality of the bowel preparation was fair. Anatomical landmarks were photographed. Findings: The perianal and digital rectal examinations were normal. Pertinent negatives include normal sphincter tone. The terminal ileum contained clotted blood. I was able to traverse the terminal ileum to 30 cm from the ileocecal valve and is not able to identify bleeding site. There was evidence of melena throughout Clotted blood was found in the entire colon. This appears to be from bleeding in the small intestine given the negative upper endoscopy. Impression: - Preparation of the colon was fair. - Blood in the terminal ileum. - Blood in the entire examined colon. - No specimens collected. Recommendation: - [facility]. - Patient may benefit from referral to a tertiary center with enteroscopy capabilities. Mulugeta Raymundo D.O. Mulugeta Raymundo, 07/08/2023 10:51:13 AM This report has been signed electronically. Note Initiated On: 07/08/2023 8:27 AM Number of Addenda: 0 I attest to the content of the Intraoperative Record and orders documented therein, exceptions below {[id number]}
[2023-07-08 10:56] LABS: Basophils # (auto) 0.01 K/uL (0.00-0.20); Basophils % (auto) 0.2 %; Eosinophils # (auto) 0.04 K/uL (0.00-0.50); Eosinophils % (auto) 0.6 %; Hematocrit (blood only) 26.4 % (37.0-47.0); Hemoglobin 8.3 g/dl (12.0-16.0); Immature Granulocytes # (auto) 0.03 K/uL (0.01-0.20); Immature Granulocytes % (auto) 0.5 %; Lymphocytes # (auto) 1.41 K/uL (1.20-3.40); Lymphocytes % (auto) 21.2 %; Mean Corpuscular Hemoglobin 29.2 pg (25.0-34.0); Mean Corpuscular Hgb Conc 31.4 g/dL (32.0-36.0); Mean Platelet Volume 9.7 fL (9.4-12.4); Monocytes # (auto) 0.49 K/uL (0.11-0.59); Monocytes % (auto) 7.4 %; Neutrophils # (auto) 4.67 K/uL (1.40-6.50); Neutrophils % (auto) 70.1 %; Platelet Count 293 K/uL (130-400); RDW Coefficient of Variation 20.7 % (11.5-14.5); RDW Standard Deviation 68.9 fL (36.4-46.3); Red Blood Count 2.84 M/uL (4.20-5.40); White Blood Count 6.65 K/ul (4.8-10.8)
[2023-07-08 11:14] LABS: Calcium 7.8 mg/dl (8.6-10.3)
[2023-07-08 11:19] LABS: Anisocytosis Present; BUN Creatinine Ratio 13.2 (10-20); Creatinine Clr Calc Pharmacy 41.6 ml/min; Est GFR (African American) 58.7 ml/min; Est GFR (Non-African American) 50.6 ml/min; Polychromasia 1+
--- NOTE | 2023-07-08 15:00 | Hospitalist Progress Note ---
Date of Service July 08, 2023 Assessment & Plan (1) Symptomatic anemia: (2) GI bleed: (3) H/O Billroth II operation: (4) S/P subtotal gastrectomy: Plan: 1) Symptomatic anemia: (2) GI bleed: (3) H/O Billroth II operation: (4) S/P subtotal gastrectomy: Plan: per admitting service notes with addendum: Patient is 77-year-old PMH anemia of chronic disease, iron deficiency anemia, h/o PUD s/p Billroth 2 and had post op gastroparesis & failed treatment then had gastrectomy in 2010, h/o Breast cancer s/p surgery and chemo, CKD III, CLEMENTINA, depression, hypothyroidism, spinal stenosis, RLS, GERD, myasthenia gravis, presented to ER for significant anemia found on recent outpatient labs with Hgb of 6.4 on 07/05/2023. Reports dark color stools. 06/22/23 s/p 2 units PRBCs. 06/23/23 Hgb: 8.7. 06/23/23 EGD: normal esophagus, patent Billroth II gastrojejunostomy was found characterized by healthy-appearing mucosa, normal examined jejunum. Patient was given 2 units PRBCs with improvement of Hgb from 6.8 to 8.7. 06/24/23 IV iron Today in ER Hgb: 6.8 Possible GI bleed Reported heme+stools in ER In ER given PPI bolus and drip Continue IV PPI In ER 1unit PRBC started Repeat H&H after PRBC transfusion and likely will require another unit PRBC NPO midnight GI consult, spoke with [facility] recommends clear liquid diet and NPO midnight for possible scope tomorrow CBC, BMP in am 07/07 Status post units of packed RBCs Hemoglobin increased, now 9.0 from 7.1 No recurrence of melena or hematochezia so far Continue Protonix drip For EGD colonoscopy tomorrow 07/08 Status post EGD and colonoscopy: Unrevealing Recommend transfer to [facility] for bowel enteroscopy Dr. Raymundo discussing with [facility] GI (5) CKD (chronic kidney disease), stage III: Plan: Cr: 1.2. Baseline Cr: 1.1-1.2 Monitor renal functions, avoid nephrotoxic agents when possible (6) Diabetes mellitus, type II: Plan: A1c: 7.4 on 06/21/2023 Hold home Jardiance NovoLog sliding scale per protocol. (7) HTN (hypertension): Plan: Continue amlodipine (8) Myasthenia gravis: Plan: Possible myasthenia gravis. Currently following with neuro for workup Is on prednisone daily Continue prednisone (9) Hypothyroidism: Plan: Continue levothyroxine (10) RLS (restless legs syndrome): Plan: Continue ropinirole (11) HX: breast cancer: Plan: S/P surgery, chemo History bone marrow transplant DVT Prophylaxis SCDs Full Code as per discussion with pt Follows with Dr Bishop for routine care Admission and Anticipated Discharge Date Admission Date: July 06, 2023 Subjective Follow-up for GI bleed, etc. Status post EGD and colonoscopy today Melanotic stool found in the ileum Recommend bowel enteroscopy at [facility] Seen sitting up in bedside States that she feels fine overall No abdominal pain Had some hematochezia this morning No other new symptom Review of Systems Review of Systems: all noted and negative except for above Physical Exam Physical Exam: General- oriented x 3, not in distress, speaks in sentences with no effort or accessory muscle use Eyes- anicteric Neck- no JVD Lungs- clear breath sounds bilaterally, no rales/wheezes Heart- normal rate, regular rhythm; no murmurs Abdomen- normal bowel sounds, nondistended, soft, nontender Extremities- no pretibial edema, no calf tenderness Neuro- alert, oriented x 3; no gross focal neurologic deficits Skin- warm & dry Results & Data Results & Data Vital Signs (Past 12 Hours) Vital Signs Temp Pulse Pulse Resp BP Pulse Ox O2 Del Method 07/08/23 12:01 Room Air 07/08/23 10:13 36.5 C 70 18 115/65 98 Room Air 07/08/23 09:55 73 16 117/59 L 99 Room Air 07/08/23 09:40 77 16 112/64 100 Room Air 07/08/23 09:25 77 18 91/58 L 100 Room Air 07/08/23 08:10 36.7 C 81 16 120/61 100 Room Air 07/08/23 07:30 36.8 C 81 18 104/78 96 Room Air 07/08/23 07:16 94 H all noted and reviewed including below (2) GI bleed GI bleed type/associated pathology: unspecified gastrointestinal hemorrhage type Qualified Code(s): K92.2 - Gastrointestinal hemorrhage, unspecified
[2023-07-08] MEDS: traZODone HCL 50 MG TAB PO SCH (21:32)
[2023-07-08] MEDS: ROPINIROLE 4 MG PO SCH (21:32)
[2023-07-09] MEDS: PANTOprazole 40 MG in DEXTROSE 5% MINI-B 100 ML IV SCH ×5 (00:33→21:57)
[2023-07-09] MEDS: traMADol HCL 50 MG TABLET PO PRN ×3 (00:38→17:46)
[2023-07-09] MEDS: LEVOTHYROXINE SODIUM 25 MCG TABLET PO SCH (05:17)
[2023-07-09 06:54] LABS: Basophils # (auto) 0.02 K/uL (0.00-0.20); Basophils % (auto) 0.3 %; Eosinophils # (auto) 0.06 K/uL (0.00-0.50); Hematocrit (blood only) 23.6 % (37.0-47.0); Hemoglobin 7.3 g/dl (12.0-16.0); Immature Granulocytes # (auto) 0.02 K/uL (0.01-0.20); Immature Granulocytes % (auto) 0.3 %; Lymphocytes # (auto) 1.36 K/uL (1.20-3.40); Lymphocytes % (auto) 22.3 %; Mean Corpuscular Hemoglobin 29.2 pg (25.0-34.0); Mean Corpuscular Hgb Conc 30.9 g/dL (32.0-36.0); Mean Corpuscular Volume 94.4 fL (80.0-100.0); Mean Platelet Volume 9.6 fL (9.4-12.4); Monocytes # (auto) 0.46 K/uL (0.11-0.59); Monocytes % (auto) 7.6 %; Neutrophils # (auto) 4.17 K/uL (1.40-6.50); Neutrophils % (auto) 68.5 %; Platelet Count 263 K/uL (130-400); RDW Coefficient of Variation 19.8 % (11.5-14.5); RDW Standard Deviation 67.9 fL (36.4-46.3); White Blood Count 6.09 K/ul (4.8-10.8)
[2023-07-09 07:22] LABS: BUN Creatinine Ratio 12.3 (10-20); Calcium 7.5 mg/dl (8.6-10.3); Creatinine Clr Calc Pharmacy 38.7 ml/min; Est GFR (African American) 53.7 ml/min; Est GFR (Non-African American) 46.3 ml/min; Potassium 3.4 mmol/L (3.5-5.1)
[2023-07-09 07:27] LABS: Anisocytosis Present; Polychromasia 1+; Tear Drop Cells 1+
[2023-07-09] MEDS ORDERED: SODIUM CHLORIDE 0.9% 250 ML IV PRN (08:05)
[2023-07-09] MEDS ORDERED: SODIUM CHLORIDE 0.9% 500 ML IV ONE (08:08)
[2023-07-09] MEDS: FLUTICASONE PROPIONATE NA SPR 16 GM BTL NAE SCH (08:10)
[2023-07-09] MEDS: predniSONE 20 MG TAB PO SCH (08:10)
[2023-07-09] MEDS ORDERED: ACETAMINOPHEN 325 MG TAB PO SCH (08:15)
[2023-07-09] MEDS: INSULIN ASPART PER UNIT CHARGE SC SCH ×4 (09:41→20:28)
[2023-07-09] MEDS: SODIUM CHLORIDE 0.9% 1,000 ML IV SCH ×2 (10:06→15:52)
[2023-07-09] MEDS ORDERED: OPTIRAY 320 125ml IV ONE (11:23)
--- NOTE | 2023-07-09 11:57 | CT Scan Report ---
CT ANGIOGRAM OF THE ABDOMEN AND PELVIS CLINICAL HISTORY: Melena. COMPARISON STUDY: Abdominal CT dated 07/09/2022 and 03/31/2010. TECHNIQUE: Following the IV administration of 112 cc of Optiray 320, CT angiogram of the abdomen and pelvis was performed from the lung bases the proximal femora. Images are reviewed in the axial, sagit nacho, and coronal planes. 3-D MIPS images are created and assessed. IV contrast was administered witho ut complication. A dose lowering technique was utilized adhering to the principles of ALARA. CT DOSE: 752.93 mGy.cm FINDINGS: Lower chest: The heart is top normal in size and without pericardial effusion. The mitral annulus is densely calcified. The lung bases are clear. Liver: The contrast-enhanced liver is normal in size, contour, and attenuation. There is mild central intrahepatic biliary ductal dilatation. Gallbladder: The gallbladder is distended but otherwise normal in appearance. Spleen: Normal in size and attenuation noting heterogeneous arterial phase enhancement. Pancreas: Moderately atrophic and grossly unremarkable. Adrenal glands: Unremarkable. Kidneys: The contrast enhanced kidneys are normal in size and without hydronephrosis. The kidneys enh ance symmetrically. There are at least 3 punctate nonobstructing right renal calculi. No left renal c alculi are clearly seen on this contrast-enhanced examination. Abdominal aorta and iliac arteries: The abdominal aorta is normal in course and caliber noting scatte red foci of atherosclerotic calcification. The abdominal aorta is widely patent. No dissection is see n. The iliac arteries are widely patent bilaterally. Major branches of the abdominal aorta: The celiac trunk, superior mesenteric, and inferior mesenteric arteries are widely patent. Hepatic arterial anatomy is conventional. The splenic artery is patent. There are single bilateral renal arteries. The left renal artery is widely patent. There is high-grad e stenosis with near complete occlusion at the origin of the right renal artery. This is best seen on axial image #121. Stomach and bowel: There is a small hiatal hernia. Postsurgical changes consistent with a history of Maci-en-Y gastric bypass surgery. There is postsurgical change from sigmoid colon resection with colo colonic anastomosis. No bowel obstruction is seen. There is moderate constipation. Large duodenal div erticula are noted. The appendix is not identified and reported surgically absent. Peritoneum: There is no intraperitoneal free air or abdominal ascites. A 2.5 x 1.1 cm hyperdense nodu le in the left upper quadrant on image #120 is unchanged dating back to 2009 and of doubtful signific ance. Lymphadenopathy: None. Pelvic viscera: Evaluation of the pelvis is degraded by streak artifact from a right hip arthroplasty . The bladder is distended but otherwise normal in appearance. The uterus and adnexa are normal as vi sualized. Surgical clips are seen in the right posterior pelvis. A 2.0 cm hyperdense structure in the left perineal soft tissue seen on image #341 is unchanged and likely represents a complex Bartholin' s gland cyst. Skeletal structures: The skeletal structures are osteopenic. Spondylotic and extensive postsurgical c hanges noted in the lumbar spine. No destructive bony lesions are seen. A right hip arthroplasty is i n place. Advanced arthritic change is noted in the left hip. IMPRESSION: 1. There is high-grade stenosis at the origin of the right renal artery with near complete occlusion. Vascular surgical assessment is advised. 2. Otherwise unremarkable CT angiogram of the abdominal aorta and its major branches. 3. No acute infectious or inflammatory findings are identified in the abdomen or pelvis. 4. There is postsurgical change consistent with a Maci-en-Y gastric bypass procedure. There has also been distal colonic resection. No bowel obstruction is seen. 5. Moderate constipation. 6. The gallbladder is distended but otherwise normal as imaged. Correlate with clinical and laborator y findings. 7. Additional findings as above. ACT 112: Positive. There are findings on this exam that require communication between the performing entity and the patient following Patient Test Result Information Act ([place] Act 112) guidelines. Electronically signed by: Efe Abbasi M.D. 07/09/2023 11:55 AM
[2023-07-09 14:52] LABS: Hematocrit (blood only) 26.9 % (37.0-47.0); Hemoglobin 8.4 g/dl (12.0-16.0)
--- NOTE | 2023-07-09 15:43 | Hospitalist Progress Note ---
Date of Service July 09, 2023 Assessment & Plan (1) Symptomatic anemia: (2) GI bleed: (3) H/O Billroth II operation: (4) S/P subtotal gastrectomy: Plan: 1) Symptomatic anemia: (2) GI bleed: (3) H/O Billroth II operation: (4) S/P subtotal gastrectomy: Plan: per admitting service notes with addendum: Patient is 77-year-old PMH anemia of chronic disease, iron deficiency anemia, h/o PUD s/p Billroth 2 and had post op gastroparesis & failed treatment then had gastrectomy in 2010, h/o Breast cancer s/p surgery and chemo, CKD III, CLEMENTINA, depression, hypothyroidism, spinal stenosis, RLS, GERD, myasthenia gravis, presented to ER for significant anemia found on recent outpatient labs with Hgb of 6.4 on 07/05/2023. Reports dark color stools. 06/22/23 s/p 2 units PRBCs. 06/23/23 Hgb: 8.7. 06/23/23 EGD: normal esophagus, patent Billroth II gastrojejunostomy was found characterized by healthy-appearing mucosa, normal examined jejunum. Patient was given 2 units PRBCs with improvement of Hgb from 6.8 to 8.7. 06/24/23 IV iron Today in ER Hgb: 6.8 Possible GI bleed Reported heme+stools in ER In ER given PPI bolus and drip Continue IV PPI In ER 1unit PRBC started Repeat H&H after PRBC transfusion and likely will require another unit PRBC NPO midnight GI consult, spoke with [facility] recommends clear liquid diet and NPO midnight for possible scope tomorrow CBC, BMP in am 07/07 Status post units of packed RBCs Hemoglobin increased, now 9.0 from 7.1 No recurrence of melena or hematochezia so far Continue Protonix drip For EGD colonoscopy tomorrow 07/08 Status post EGD and colonoscopy: Unrevealing Recommend transfer to [facility] for bowel enteroscopy Dr. Raymundo discussing with [facility] 07/09 No melena or hematochezia since last night However hemoglobin 7.3 1 unit packed RBCs ordered Repeat hemoglobin 8.4 Discussed with [facility] Dr. Rios, recommend to check with on-call GI and [place] to perform push enteroscopy; also recommending CT angiogram of the abdomen Discussed with Dr. Trevino, he said he can had to push enteroscopy this weekend CT angiogram: No source of bleeding identified Discussed above with Dr. Rios, including hemoglobin trending down this morning She said continue to monitor hemoglobin and transfuse as needed, as long as patient is hemodynamically stable and not having signs of active bleeding, will not accept patient for transfer She would like to have push enteroscopy done here first Relayed above to Dr. Trevino, he will arrange for push enteroscopy on Tuesday at [facility] (5) CKD (chronic kidney disease), stage III: Plan: Cr: 1.2. Baseline Cr: 1.1-1.2 Monitor renal functions, avoid nephrotoxic agents when possible (6) Diabetes mellitus, type II: Plan: A1c: 7.4 on 06/21/2023 Hold home Jardiance NovoLog sliding scale per protocol. (7) HTN (hypertension): Plan: Continue amlodipine (8) Myasthenia gravis: Plan: Possible myasthenia gravis. Currently following with neuro for workup Is on prednisone daily Continue prednisone (9) Hypothyroidism: Plan: Continue levothyroxine (10) RLS (restless legs syndrome): Plan: Continue ropinirole (11) HX: breast cancer: Plan: S/P surgery, chemo History bone marrow transplant DVT Prophylaxis SCDs Full Code as per discussion with pt Follows with Dr Bishop for routine care Admission and Anticipated Discharge Date Admission Date: July 06, 2023 Subjective Follow-up for GI bleed, etc. Seen resting in bed, sitting up, not in distress Comfortable States she feels okay overall No BM since last night No abdominal pain, nausea vomiting No chest pain, palpitations, dizziness No other new symptoms Review of Systems Review of Systems: all noted and negative except for above Physical Exam Physical Exam: General- oriented x 3, not in distress, speaks in sentences with no effort or accessory muscle use Eyes- anicteric Neck- no JVD Lungs- clear breath sounds bilaterally Heart- normal rate, regular rhythm; no murmurs Abdomen- normal bowel sounds, nondistended, soft, nontender Extremities- no pretibial edema, no calf tenderness Neuro- alert, oriented x 3; no gross focal neurologic deficits Skin- warm & dry Results & Data Results & Data Vital Signs (Past 12 Hours) Vital Signs Temp Pulse Pulse Resp BP BP Pulse Ox 07/09/23 10:59 36.7 C 71 18 128/68 96 07/09/23 09:59 36.7 C 72 18 121/64 98 07/09/23 09:29 36.7 C 80 18 112/60 97 07/09/23 09:14 36.8 C 78 18 113/57 L 100 07/09/23 08:56 36.9 C 73 18 130/62 99 07/09/23 08:05 36.9 C 75 16 91/48 L 99 07/09/23 07:48 69 07/09/23 04:00 36.8 C 76 20 102/64 97 O2 Del Method 07/09/23 10:59 07/09/23 09:59 07/09/23 09:29 07/09/23 09:14 07/09/23 08:56 07/09/23 08:05 Room Air 07/09/23 07:48 07/09/23 04:00 Room Air all noted and reviewed including below (2) GI bleed GI bleed type/associated pathology: unspecified gastrointestinal hemorrhage type Qualified Code(s): K92.2 - Gastrointestinal hemorrhage, unspecified
[2023-07-09] MEDS ORDERED: POTASSIUM CHLORIDE CRTAB 20 MEQ TABCR PO STA (15:49)
[2023-07-09 21:45] LABS: Hematocrit (blood only) 27.3 % (37.0-47.0); Hemoglobin 8.8 g/dl (12.0-16.0)
[2023-07-09] MEDS: traZODone HCL 50 MG TAB PO SCH (21:57)
[2023-07-09] MEDS: ROPINIROLE 4 MG PO SCH (21:57)
[2023-07-10] MEDS: PANTOprazole 40 MG in DEXTROSE 5% MINI-B 100 ML IV SCH ×5 (03:27→23:45)
[2023-07-10] MEDS: SODIUM CHLORIDE 0.9% 1,000 ML IV SCH ×2 (03:27→15:51)
[2023-07-10] MEDS: LEVOTHYROXINE SODIUM 50 MCG TABLET PO SCH (06:02)
[2023-07-10] MEDS: traMADol HCL 50 MG TABLET PO PRN ×3 (06:06→22:31)
[2023-07-10 06:39] LABS: Basophils # (auto) 0.02 K/uL (0.00-0.20); Basophils % (auto) 0.3 %; Eosinophils # (auto) 0.06 K/uL (0.00-0.50); Hemoglobin 8.6 g/dl (12.0-16.0); Immature Granulocytes # (auto) 0.02 K/uL (0.01-0.20); Immature Granulocytes % (auto) 0.3 %; Lymphocytes # (auto) 1.42 K/uL (1.20-3.40); Lymphocytes % (auto) 22.9 %; Mean Corpuscular Hgb Conc 31.9 g/dL (32.0-36.0); Mean Corpuscular Volume 90.9 fL (80.0-100.0); Mean Platelet Volume 9.5 fL (9.4-12.4); Monocytes # (auto) 0.52 K/uL (0.11-0.59); Monocytes % (auto) 8.4 %; Neutrophils # (auto) 4.17 K/uL (1.40-6.50); Neutrophils % (auto) 67.1 %; Platelet Count 265 K/uL (130-400); RDW Coefficient of Variation 18.6 % (11.5-14.5); RDW Standard Deviation 61.3 fL (36.4-46.3); Red Blood Count 2.97 M/uL (4.20-5.40); White Blood Count 6.21 K/ul (4.8-10.8)
[2023-07-10 07:17] LABS: BUN Creatinine Ratio 13.9 (10-20); Calcium 7.8 mg/dl (8.6-10.3); Creatinine Clr Calc Pharmacy 43.7 ml/min; Est GFR (African American) 62.2 ml/min; Est GFR (Non-African American) 53.7 ml/min; Potassium 3.6 mmol/L (3.5-5.1)
--- NOTE | 2023-07-10 08:06 | Gastroenterology Progress Note ---
Date of Service July 10, 2023 Assessment & Plan (1) Symptomatic anemia: Plan: Will arrange for push enteroscopy tomorrow by Dr. Claros. Patient agrees Admission and Anticipated Discharge Date Admission Date: July 06, 2023 Subjective Patient had another black stool this morning although H/H are stable. Polina is requesting a push enteroscopy be done prior to sending her for double balloon enteroscopy Physical Exam Physical Exam: She looks comfortable Constitutional: WD/WN, vitals as above Results & Data Vital Signs (Past 12 Hours) Vital Signs Temp Pulse Pulse Pulse Resp BP Pulse Ox 07/10/23 07:49 78 07/10/23 07:33 36.5 C 75 16 113/62 100 07/10/23 03:05 36.6 C 74 18 105/64 98 07/09/23 22:00 36.7 C 71 18 95/54 L 96 07/09/23 21:51 83 07/09/23 20:37 37.0 C 74 18 116/67 98 O2 Del Method 07/10/23 07:49 07/10/23 07:33 Room Air 07/10/23 03:05 Room Air 07/09/23 22:00 Room Air 07/09/23 21:51 07/09/23 20:37 Room Air Laboratory Results 07/10/23 07/09/23 07/09/23 Range/Units 06:02 20:24 20:04 WBC 6.21 (4.8-10.8) K/ul RBC 2.97 L (4.20-5.40) M/uL Hgb 8.6 L 8.8 L (12.0-16.0) g/dl Hct 27.0 L 27.3 L (37.0-47.0) % MCV 90.9 (80.0-100.0) fL MCH 29.0 (25.0-34.0) pg MCHC 31.9 L (32.0-36.0) g/dL RDW Std Deviation 61.3 H (36.4-46.3) fL RDW Coeff of Tatiana 18.6 H (11.5-14.5) % Plt Count 265 (130-400) K/uL MPV 9.5 (9.4-12.4) fL Immature Gran % (Auto) 0.3 % Neut % (Auto) 67.1 % Lymph % (Auto) 22.9 % Baca % (Auto) 8.4 % Eos % (Auto) 1.0 % Baso % (Auto) 0.3 % Neut # (Auto) 4.17 (1.40-6.50) K/uL Lymph # (Auto) 1.42 (1.20-3.40) K/uL Baca # (Auto) 0.52 (0.11-0.59) K/uL Eos # (Auto) 0.06 (0.00-0.50) K/uL Baso # (Auto) 0.02 (0.00-0.20) K/uL Immature Gran # (Auto) 0.02 (0.01-0.20) K/uL Sodium 141 (136-145) mmol/L Potassium 3.6 (3.5-5.1) mmol/L Chloride 112 H (98-107) mmol/L Carbon Dioxide 25 (21-32) mmol/L Anion Gap 4 (3-11) BUN 14 (6-23) mg/dl Creatinine 1.01 (0.6-1.2) mg/dl Est Cr Clr Drug Dosing 43.7 ml/min Est GFR ( Amer) 62.2 ml/min Est GFR (Non-Af Amer) 53.7 ml/min BUN/Creatinine Ratio 13.9 (10-20) Glucose 106 H (70-99(Fasting)) mg/dl POC Glucose 163 H (70-99) mg/dl Calcium 7.8 L (8.6-10.3) mg/dl Blood Type Antibody Screen Crossmatch 07/09/23 07/09/23 07/09/23 Range/Units 17:06 14:18 12:17 WBC (4.8-10.8) K/ul RBC (4.20-5.40) M/uL Hgb 8.4 L (12.0-16.0) g/dl Hct 26.9 L (37.0-47.0) % MCV (80.0-100.0) fL MCH (25.0-34.0) pg MCHC (32.0-36.0) g/dL RDW Std Deviation (36.4-46.3) fL RDW Coeff of Tatiana (11.5-14.5) % Plt Count (130-400) K/uL MPV (9.4-12.4) fL Immature Gran % (Auto) % Neut % (Auto) % Lymph % (Auto) % Baca % (Auto) % Eos % (Auto) % Baso % (Auto) % Neut # (Auto) (1.40-6.50) K/uL Lymph # (Auto) (1.20-3.40) K/uL Baca # (Auto) (0.11-0.59) K/uL Eos # (Auto) (0.00-0.50) K/uL Baso # (Auto) (0.00-0.20) K/uL Immature Gran # (Auto) (0.01-0.20) K/uL Sodium (136-145) mmol/L Potassium (3.5-5.1) mmol/L Chloride (98-107) mmol/L Carbon Dioxide (21-32) mmol/L Anion Gap (3-11) BUN (6-23) mg/dl Creatinine (0.6-1.2) mg/dl Est Cr Clr Drug Dosing ml/min Est GFR ( Amer) ml/min Est GFR (Non-Af Amer) ml/min BUN/Creatinine Ratio (10-20) Glucose (70-99(Fasting)) mg/dl POC Glucose 105 H 141 H (70-99) mg/dl Calcium (8.6-10.3) mg/dl Blood Type Antibody Screen Crossmatch 07/09/23 07/09/23 07/09/23 Range/Units 08:50 08:20 08:17 WBC (4.8-10.8) K/ul RBC (4.20-5.40) M/uL Hgb 8.0 L (12.0-16.0) g/dl Hct 26.0 L (37.0-47.0) % MCV (80.0-100.0) fL MCH (25.0-34.0) pg MCHC (32.0-36.0) g/dL RDW Std Deviation (36.4-46.3) fL RDW Coeff of Tatiana (11.5-14.5) % Plt Count (130-400) K/uL MPV (9.4-12.4) fL Immature Gran % (Auto) % Neut % (Auto) % Lymph % (Auto) % Baca % (Auto) % Eos % (Auto) % Baso % (Auto) % Neut # (Auto) (1.40-6.50) K/uL Lymph # (Auto) (1.20-3.40) K/uL Baca # (Auto) (0.11-0.59) K/uL Eos # (Auto) (0.00-0.50) K/uL Baso # (Auto) (0.00-0.20) K/uL Immature Gran # (Auto) (0.01-0.20) K/uL Sodium (136-145) mmol/L Potassium (3.5-5.1) mmol/L Chloride (98-107) mmol/L Carbon Dioxide (21-32) mmol/L Anion Gap (3-11) BUN (6-23) mg/dl Creatinine (0.6-1.2) mg/dl Est Cr Clr Drug Dosing ml/min Est GFR ( Amer) ml/min Est GFR (Non-Af Amer) ml/min BUN/Creatinine Ratio (10-20) Glucose (70-99(Fasting)) mg/dl POC Glucose 117 H (70-99) mg/dl Calcium (8.6-10.3) mg/dl Blood Type A Positive Antibody Screen NEGATIVE Crossmatch See Detail 07/06/23 Range/Units 11:50 WBC (4.8-10.8) K/ul RBC (4.20-5.40) M/uL Hgb (12.0-16.0) g/dl Hct (37.0-47.0) % MCV (80.0-100.0) fL MCH (25.0-34.0) pg MCHC (32.0-36.0) g/dL RDW Std Deviation (36.4-46.3) fL RDW Coeff of Tatiana (11.5-14.5) % Plt Count (130-400) K/uL MPV (9.4-12.4) fL Immature Gran % (Auto) % Neut % (Auto) % Lymph % (Auto) % Baca % (Auto) % Eos % (Auto) % Baso % (Auto) % Neut # (Auto) (1.40-6.50) K/uL Lymph # (Auto) (1.20-3.40) K/uL Baca # (Auto) (0.11-0.59) K/uL Eos # (Auto) (0.00-0.50) K/uL Baso # (Auto) (0.00-0.20) K/uL Immature Gran # (Auto) (0.01-0.20) K/uL Sodium (136-145) mmol/L Potassium (3.5-5.1) mmol/L Chloride (98-107) mmol/L Carbon Dioxide (21-32) mmol/L Anion Gap (3-11) BUN (6-23) mg/dl Creatinine (0.6-1.2) mg/dl Est Cr Clr Drug Dosing ml/min Est GFR ( Amer) ml/min Est GFR (Non-Af Amer) ml/min BUN/Creatinine Ratio (10-20) Glucose (70-99(Fasting)) mg/dl POC Glucose (70-99) mg/dl Calcium (8.6-10.3) mg/dl Blood Type A Positive Antibody Screen NEGATIVE Crossmatch See Detail
[2023-07-10] MEDS: FLUTICASONE PROPIONATE NA SPR 16 GM BTL NAE SCH (08:09)
[2023-07-10] MEDS: predniSONE 20 MG TAB PO SCH (08:09)
[2023-07-10] MEDS: INSULIN ASPART PER UNIT CHARGE SC SCH ×4 (09:20→22:31)
--- NOTE | 2023-07-10 16:39 | Hospitalist Progress Note ---
Date of Service July 10, 2023 Assessment & Plan (1) Symptomatic anemia: (2) GI bleed: (3) H/O Billroth II operation: (4) S/P subtotal gastrectomy: Plan: 1) Symptomatic anemia: (2) GI bleed: (3) H/O Billroth II operation: (4) S/P subtotal gastrectomy: Plan: per admitting service notes with addendum: Patient is 77-year-old PMH anemia of chronic disease, iron deficiency anemia, h/o PUD s/p Billroth 2 and had post op gastroparesis & failed treatment then had gastrectomy in 2010, h/o Breast cancer s/p surgery and chemo, CKD III, CLEMENTINA, depression, hypothyroidism, spinal stenosis, RLS, GERD, myasthenia gravis, presented to ER for significant anemia found on recent outpatient labs with Hgb of 6.4 on 07/05/2023. Reports dark color stools. 06/22/23 s/p 2 units PRBCs. 06/23/23 Hgb: 8.7. 06/23/23 EGD: normal esophagus, patent Billroth II gastrojejunostomy was found characterized by healthy-appearing mucosa, normal examined jejunum. Patient was given 2 units PRBCs with improvement of Hgb from 6.8 to 8.7. 06/24/23 IV iron Today in ER Hgb: 6.8 Possible GI bleed Reported heme+stools in ER In ER given PPI bolus and drip Continue IV PPI In ER 1unit PRBC started Repeat H&H after PRBC transfusion and likely will require another unit PRBC NPO midnight GI consult, spoke with [facility] recommends clear liquid diet and NPO midnight for possible scope tomorrow CBC, BMP in am 07/07 Status post units of packed RBCs Hemoglobin increased, now 9.0 from 7.1 No recurrence of melena or hematochezia so far Continue Protonix drip For EGD colonoscopy tomorrow 07/08 Status post EGD and colonoscopy: Unrevealing Recommend transfer to [facility] for bowel enteroscopy Dr. Raymundo discussing with [facility] 07/09 No melena or hematochezia since last night However hemoglobin 7.3 1 unit packed RBCs ordered Repeat hemoglobin 8.4 Discussed with [facility] Dr. Rios, recommend to check with on-call GI and [place] to perform push enteroscopy; also recommending CT angiogram of the abdomen Discussed with Dr. Trevino, he said he can had to push enteroscopy this weekend CT angiogram: No source of bleeding identified Discussed above with Dr. Rios, including hemoglobin trending down this morning She said continue to monitor hemoglobin and transfuse as needed, as long as patient is hemodynamically stable and not having signs of active bleeding, will not accept patient for transfer She would like to have push enteroscopy done here first Relayed above to Dr. Trevino, he will arrange for push enteroscopy on Tuesday at [facility] 07/10 Possible melena this morning but hemoglobin remains around 8 N.p.o. postmidnight For push enteroscopy tomorrow (5) CKD (chronic kidney disease), stage III: Plan: Cr: 1.2. Baseline Cr: 1.1-1.2 Monitor renal functions, avoid nephrotoxic agents when possible (6) Diabetes mellitus, type II: Plan: A1c: 7.4 on 06/21/2023 Hold home Jardiance NovoLog sliding scale per protocol. (7) HTN (hypertension): Plan: HOLD amlodipine to prevent hypotension (8) Myasthenia gravis: Plan: Possible myasthenia gravis. Currently following with neuro for workup Is on prednisone daily Continue prednisone (9) Hypothyroidism: Plan: Continue levothyroxine (10) RLS (restless legs syndrome): Plan: Continue ropinirole (11) HX: breast cancer: Plan: S/P surgery, chemo History bone marrow transplant DVT Prophylaxis SCDs Full Code as per discussion with pt Follows with Dr Bishop for routine care Admission and Anticipated Discharge Date Admission Date: July 06, 2023 Subjective Follow-up for GI bleed, etc. Had an episode of melena this morning No abdominal pain, nausea vomiting No chest pain, shortness of breath, dizziness, palpitations No other new symptoms Review of Systems Review of Systems: all noted and negative except for above Physical Exam Physical Exam: General- oriented x 3, not in distress, speaks in sentences with no effort or accessory muscle use Eyes- anicteric Neck- no JVD Lungs- clear BS bilaterally, no crackles/wheezing Heart- normal rate, regular rhythm; no murmurs Abdomen- normal bowel sounds, nondistended, soft, nontender Extremities- no pretibial edema, no calf tenderness Neuro- alert, oriented x 3; no gross focal neurologic deficits Skin- warm & dry Results & Data Results & Data Vital Signs (Past 12 Hours) Vital Signs Temp Pulse Pulse Resp BP Pulse Ox O2 Del Method 07/10/23 15:41 36.7 C 74 16 97/56 L 97 Room Air 07/10/23 15:27 78 07/10/23 12:00 36.8 C 70 16 97/50 L 96 Room Air 07/10/23 07:49 78 07/10/23 07:33 36.5 C 75 16 113/62 100 Room Air all noted and reviewed including below (2) GI bleed GI bleed type/associated pathology: unspecified gastrointestinal hemorrhage type Qualified Code(s): K92.2 - Gastrointestinal hemorrhage, unspecified
[2023-07-10] MEDS: traZODone HCL 50 MG TAB PO SCH (22:31)
[2023-07-10] MEDS: ROPINIROLE 4 MG PO SCH (22:32)
[2023-07-11] MEDS: PANTOprazole 40 MG in DEXTROSE 5% MINI-B 100 ML IV SCH ×3 (02:54→16:29)
[2023-07-11] MEDS: SODIUM CHLORIDE 0.9% 1,000 ML IV SCH ×2 (04:02→16:50)
[2023-07-11] MEDS: traMADol HCL 50 MG TABLET PO PRN ×2 (06:21→15:36)
[2023-07-11 06:59] LABS: Basophils # (auto) 0.02 K/uL (0.00-0.20); Basophils % (auto) 0.3 %; Eosinophils # (auto) 0.09 K/uL (0.00-0.50); Eosinophils % (auto) 1.5 %; Hematocrit (blood only) 27.3 % (37.0-47.0); Hemoglobin 8.7 g/dl (12.0-16.0); Immature Granulocytes # (auto) 0.01 K/uL (0.01-0.20); Immature Granulocytes % (auto) 0.2 %; Lymphocytes # (auto) 1.46 K/uL (1.20-3.40); Mean Corpuscular Hemoglobin 29.6 pg (25.0-34.0); Mean Corpuscular Hgb Conc 31.9 g/dL (32.0-36.0); Mean Corpuscular Volume 92.9 fL (80.0-100.0); Mean Platelet Volume 9.6 fL (9.4-12.4); Monocytes # (auto) 0.44 K/uL (0.11-0.59); Monocytes % (auto) 7.5 %; Neutrophils # (auto) 3.81 K/uL (1.40-6.50); Neutrophils % (auto) 65.5 %; Platelet Count 280 K/uL (130-400); RDW Coefficient of Variation 18.4 % (11.5-14.5); RDW Standard Deviation 62.5 fL (36.4-46.3); Red Blood Count 2.94 M/uL (4.20-5.40); White Blood Count 5.83 K/ul (4.8-10.8)
[2023-07-11 07:22] LABS: BUN Creatinine Ratio 14.3 (10-20); Calcium 7.6 mg/dl (8.6-10.3); Est GFR (African American) 59.3 ml/min; Est GFR (Non-African American) 51.2 ml/min; Potassium 3.9 mmol/L (3.5-5.1)
[2023-07-11] MEDS: INSULIN ASPART PER UNIT CHARGE SC SCH ×3 (08:16→18:30)
--- NOTE | 2023-07-11 08:48 | History & Physical Report ---
Date of Service July 11, 2023 Assessment & Plan (1) GI bleed: Plan: EGD/push enteroscopy today Admission and Anticipated Discharge Date Admission Date: July 06, 2023 History of Present Illness Chief Complaint: melena and drop in H/H. Negative EGD and colonoscopy 07/08 Primary Care Provider: Saritha Bishop, DO melena over weekend and drop in H/H Allergies Allergy/AdvReac Type Severity Reaction Status Date / Time Sulfa (Sulfonamide Allergy Intermediate HIVES Verified 07/06/23 14:54 Antibiotics) metoclopramide AdvReac Intermediate depression Verified 07/06/23 14:54 Home Medications Medication Instructions Recorded Confirmed Type fluticasone propionate 50 2 spray intranasal QAM 10/15/18 07/06/23 History mcg/actuation nasal spray,suspension levothyroxine 50 mcg tablet 0 mcg PO DAILY 10/15/18 07/06/23 History trazodone 50 mg tablet 75 mg PO HS 10/15/18 07/06/23 History ropinirole 4 mg tablet,extended 4 mg PO HS 06/17/20 07/06/23 History release 24 hr Wheelchair (Manual) #1 ea 01/01/21 06/22/23 Rx multivitamin 1 tab PO QAM 02/11/22 07/06/23 History magnesium malate, chelate 1,000 mg PO DAILY 07/09/22 07/06/23 History ppnylyif-gxz-klhoko 5 mg-zeaxanth 1 cap PO DAILY 07/09/22 07/06/23 History 1 mg-bilberry 7.5 mg-herbal capsule ([employer] Formula) tramadol 50 mg tablet 50 mg PO Q6H PRN Severe Pain 07/09/22 07/06/23 History (Scale Score 7-10) pantoprazole 40 mg tablet,delayed 40 mg PO QAM #30 tabs 07/12/22 07/06/23 Rx release amoxicillin 500 mg tablet 2,000 mg PO DIRECTED PRN PRIOR 07/20/22 07/06/23 History TO PROCEDURE omega-3 fatty acids 1,000 mg 1,000 mg PO DAILY 07/20/22 07/06/23 History capsule lifitegrast 5 % eye drops in a 1 drp ophthalmic (eye) BID 06/14/23 07/06/23 History dropperette (Xiidra) prednisone 20 mg tablet 20 mg PO QAM 06/14/23 07/06/23 History prazosin 1 mg capsule 1 mg PO Q OTHER DAY 06/22/23 07/06/23 History amlodipine 2.5 mg tablet 2.5 mg PO DAILY 07/06/23 07/06/23 History empagliflozin 10 mg tablet 10 mg PO QAM 07/06/23 07/06/23 History (Jardiance) misoprostol 200 mcg tablet 200 mcg PO QID 07/06/23 07/06/23 History Past Med/Surg History Medical History GERD (gastroesophageal reflux disease) controlled Myasthenia gravis on prednisone daily follows with [facility] neuro Diabetes mellitus, type II HTN (hypertension) History of COVID-12 JUNE 2020 (HOSPITALIZED AT [facility])- denies current issues April 2022- symptoms resolved Polycystic ovarian disease no issues currently Spinal stenosis Hx of gastric ulcer RESULTING IN GASTRECTOMY (2012) Lyme disease x2 hx- treated (no current issues) anaplasmosis - 2019- treated (no current issues) History of TMJ disorder stable - mostly pain when flared up - no locking Macular degeneration History of depression Hx of migraines HX: breast cancer 1993- lumpectomy and chemo Hx of sleep apnea Was on BiPAP in the past- no issues since 2007 (was re-tested) CKD (chronic kidney disease), stage III stable Anemia due to chronic kidney disease pt states has issues w/ anemia Jun 2022- admitted to [facility] (black tarry stools)- was transfused RLS (restless legs syndrome) Chronic sinusitis stable Hypothyroidism Surgical History S/P spinal surgery 09/2021 lumbar- [facility] History of ankle surgery LEFT (12/28/20) History of esophagogastroduodenoscopy (EGD) History of colonoscopy Hx of lumpectomy LEFT H/O bone marrow transplant 1993 History of tonsillectomy and adenoidectomy History of total right hip replacement History of cataract surgery RT/LEFT H/O oophorectomy History of appendectomy H/O sinus surgery History of partial mastectomy of left breast LEFT S/P subtotal gastrectomy D/T GASTRIC ULCERS H/O Billroth II operation Family History Father Atrial fibrillation Other No family history of adverse response to anesthesia Social History Smoking Status: Never smoker Second Hand Exposure: No; Do You Dip or Chew Tobacco: No; Hx Alcohol Use: No Hx Substance Use: No Preferred Language: Mongolian Communication Ability: Effective Architecture Faculty Member Required: No Beliefs That Will Affect Care: None marital status: / marital status details: within last 8-9 mo Current Living Situation: Alone Feels Safe at Home: Yes Safety Concerns: Feels Safe At This Time Assistive Devices: None Results & Data Vital Signs (Past 12 Hours) Vital Signs Temp Pulse Pulse Resp BP BP Pulse Ox 07/11/23 08:21 36.6 C 68 16 141/72 H 100 07/11/23 07:49 36.6 C 75 16 119/57 L 99 07/11/23 04:26 36.7 C 70 20 130/68 97 07/10/23 23:38 36.8 C 86 20 108/54 L 96 07/10/23 21:58 82 O2 Del Method 07/11/23 08:21 Room Air 07/11/23 07:49 Room Air 07/11/23 04:26 Room Air 07/10/23 23:38 Room Air 07/10/23 21:58 (1) GI bleed GI bleed type/associated pathology: unspecified gastrointestinal hemorrhage type Qualified Code(s): K92.2 - Gastrointestinal hemorrhage, unspecified
--- NOTE | 2023-07-11 09:29 | GI REPORT ---
Patient Name: Gina Brock Procedure Date: 07/11/2023 8:31 AM Date of : 1945 Admit Type: Inpatient Age: 77 Gender: Female Attending MD: Sarah De La O DO, Procedure: Upper GI endoscopy Providers: Sarah De La O DO Referring MD: Justin Stauffer Indications: Melena Medicines: Propofol per Anesthesia Complications: No immediate complications. Estimated blood loss: None. Estimated Blood Loss: Estimated blood loss: none. Procedure: Pre-Anesthesia Assessment: - Prior to the procedure, a History and Physical was performed, and patient medications, allergies and sensitivities were reviewed. The patient's tolerance of previous anesthesia was reviewed. - The risks and benefits of the procedure and the sedation options and risks were discussed with the patient. All questions were answered and informed consent was obtained. - Patient identification and proposed procedure were verified prior to the procedure by the physician and the nurse. The procedure was verified in the pre-procedure area in the procedure room. - Mental Status Examination: alert and oriented. Airway Examination: normal oropharyngeal airway and neck mobility. Respiratory Examination: clear to auscultation. CV Examination: normal. Abdominal Examination: bowel sounds present, abdomen soft and non-tender, no masses or organomegaly noted. - ASA Grade Assessment: II - A patient with mild systemic disease. After obtaining informed consent, the endoscope was passed under direct vision. Throughout the procedure, the patient's blood pressure, pulse, and oxygen saturations were monitored continuously. The Colonoscope was introduced through the mouth, and advanced to the jejunum. The Colonoscope was introduced through the and advanced to the. The upper GI endoscopy was accomplished without difficulty. The patient tolerated the procedure well. Findings: The esophagus was normal. Evidence of a previous subtotal gastrectomy was found in the stomach with only a few cm of stomach remaining. Healthy appearance. no ulcers.. Evidence of a gastrojejunostomy was found in the stomach. This was characterized by healthy appearing mucosa. A thin colonboscoe was advanced 120cm into the jejunum. No fresh or altered blood. No visible AVMs. Impression: - Normal esophagus. - A previous surgical anastomosis was found, characterized by healthy appearing mucosa. - A gastrojejunostomy was found, characterized by healthy appearing mucosa. - No specimens collected. Recommendation: - Return patient to [facility] for ongoing care. Sarah De La O D.O. Sarah De La O, 07/11/2023 9:29:28 AM This report has been signed electronically. Note Initiated On: 07/11/2023 8:31 AM Number of Addenda: 0 I attest to the content of the Intraoperative Record and orders documented therein, exceptions below {[id number]}
[2023-07-11] MEDS: LEVOTHYROXINE SODIUM 25 MCG TABLET PO SCH (11:26)
[2023-07-11] MEDS: predniSONE 20 MG TAB PO SCH (11:26)
[2023-07-11] MEDS: FLUTICASONE PROPIONATE NA SPR 16 GM BTL NAE SCH (11:26)
--- NOTE | 2023-07-11 14:24 | Anesthesiology Progress Note ---
Date of Service July 11, 2023 Anesthesia Post Procedure Vital Signs Vital Signs: Temp Pulse Pulse Resp BP BP Pulse Ox 07/11/23 11:09 36.6 C 66 16 168/84 H 98 07/11/23 09:55 36.5 C 77 18 122/57 L 99 07/11/23 09:42 66 16 109/51 L 98 07/11/23 09:27 36.6 C 73 16 102/57 L 99 07/11/23 08:21 36.6 C 68 16 141/72 H 100 07/11/23 07:49 36.6 C 75 16 119/57 L 99 07/11/23 07:00 95 H 07/11/23 04:26 36.7 C 70 20 130/68 97 07/10/23 23:38 36.8 C 86 20 108/54 L 96 07/10/23 21:58 82 07/10/23 19:57 36.8 C 86 20 112/60 97 07/10/23 15:41 36.7 C 74 16 97/56 L 97 07/10/23 15:27 78 O2 Del Method 07/11/23 11:09 Room Air 07/11/23 09:55 Room Air 07/11/23 09:42 Room Air 07/11/23 09:27 Room Air 07/11/23 08:21 Room Air 07/11/23 07:49 Room Air 07/11/23 07:00 07/11/23 04:26 Room Air 07/10/23 23:38 Room Air 07/10/23 21:58 07/10/23 19:57 Room Air 07/10/23 15:41 Room Air 07/10/23 15:27 Pain Intensity Right Back: Pain Intensity: 4 Transfer of Care Handoff Completed per policy Notes Mental Status: alert / awake / arousable and participated in evaluation Patient Amnestic to Procedure: Yes Nausea / Vomiting: adequately controlled Pain: adequately controlled Airway Patency, RR, SpO2: stable & adequate BP & HR: stable & adequate Hydration State: stable & adequate Anesthetic Complications: no major complications apparent
--- NOTE | 2023-07-11 15:39 | Nuclear Medicine Report ---
NM GI bleeding HISTORY: Assess for GI bleed. melena, transfusion requiring anemia TECHNIQUE: Immediately following the intravenous administration of 26.3 mCi of technetium 99 M tagged red blood cell, dynamic imaging of the abdomen and pelvis was performed for a total 60 minutes. COMPARISON STUDY: Abdomen and pelvis CT 07/09/2023. FINDINGS: No abnormal radiotracer uptake within the abdomen or pelvis to suggest an active GI bleed. Expected radiotracer uptake seen within the arterial system and urinary system. IMPRESSION: No evidence for active GI bleed. ACT 112: Negative or not required by law. Electronically signed by: Bean Pond M.D. 07/11/2023 3:37 PM
--- NOTE | 2023-07-11 16:31 | Communication Note ---
Date of Service: July 11, 2023 EGD w/o cause of bleeding/anemia. Considered IP transfer to [place], but pt preferred OP VCE then will arrange balloon enteroscopy in [place] if appropriate based on VCE results. Urgent NM GI bleeding scan today was negative r/o current brisk bleeding. OP VCE order placed. OP office visit to be arranged w Dr. Horton to go over results per pt request. Discussed by tiger text w Dr. Stauffer. Please DC on pantoprazole 40mg QAM. GI will sign off. Please notify us of new/worsening symptoms.
--- NOTE | 2023-07-11 17:30 | Hospitalist Progress Note ---
Date of Service July 11, 2023 Assessment & Plan (1) Symptomatic anemia: (2) GI bleed: (3) H/O Billroth II operation: (4) S/P subtotal gastrectomy: Plan: 1) Symptomatic anemia: (2) GI bleed: (3) H/O Billroth II operation: (4) S/P subtotal gastrectomy: Plan: per admitting service notes with addendum: Patient is 77-year-old PMH anemia of chronic disease, iron deficiency anemia, h/o PUD s/p Billroth 2 and had post op gastroparesis & failed treatment then had gastrectomy in 2010, h/o Breast cancer s/p surgery and chemo, CKD III, CLEMENTINA, depression, hypothyroidism, spinal stenosis, RLS, GERD, myasthenia gravis, presented to ER for significant anemia found on recent outpatient labs with Hgb of 6.4 on 07/05/2023. Reports dark color stools. Admitted with hemoglobin of 6.8 Required total of 3 units of packed RBCs Hemoglobin remained stable around 8 Placed on Protonix drip 07/09 Status post EGD and colonoscopy by Dr. Sourav Raymundo: Unrevealing Recommend transfer to [facility] for bowel enteroscopy Discussed with [facility] GI-they recommend for patient to have push enteroscopy prior to performing bowel enteroscopy CT angiogram: No source of bleeding identified 07/11 Status post push enteroscopy by Dr. De La O: Unrevealing Recommended transfer to [facility] for bowel enteroscopy Patient prefers to follow-up as an outpatient would like to go Nuclear medicine bleeding scan performed-no active bleeding noted GI okay for patient to be discharged to home Will follow-up as an outpatient for video capsule endoscopy Follow-up with PCP this week Repeat CBC and follow-up visit this week (5) CKD (chronic kidney disease), stage III: Plan: Cr: 1.2. Baseline Cr: 1.1-1.2 At baseline (6) Diabetes mellitus, type II: Plan: A1c: 7.4 on 06/21/2023 Continue usual medications (7) HTN (hypertension): Plan: On amlodipine 2.5 mg p.o. daily (8) Myasthenia gravis: Plan: Possible myasthenia gravis. Currently following with neuro for workup Is on prednisone daily ne (9) Hypothyroidism: Plan: Continue levothyroxine (10) RLS (restless legs syndrome): Plan: Continue ropinirole (11) HX: breast cancer: Plan: S/P surgery, chemo History bone marrow transplant PCP in 1 week GI in 1 to 2 weeks for video capsule endoscopy plan of care discussed with patient in detail and at length all questions answered she is understanding, agreeable, comfortable with the plan of care Admission and Anticipated Discharge Date Admission Date: July 06, 2023 Subjective Follow-up for GI bleed, etc. Seen resting in bed, comfortable, not in distress Good spirits States she feels fine overall no chest pain, dyspnea, palpitations, dizziness Had 1 episode of melena this morning Status post push enteroscopy which is unrevealing Bleeding scan ordered-also unrevealing Patient reassessed in the afternoon Still feels fine Still would like to be discharged to home and follow-up with GI as an outpatient Review of Systems Review of Systems: all noted and negative except for above Physical Exam Physical Exam: General- oriented x 3, not in distress, speaks in sentences with no effort or accessory muscle use Eyes- anicteric Neck- no JVD Lungs- clear breath sounds bilaterally, no rales/wheezes Heart- normal rate, regular rhythm; no murmurs Abdomen- normal bowel sounds, nondistended, soft, nontender Extremities- no pretibial edema, no calf tenderness Neuro- alert, oriented x 3; no gross focal neurologic deficits Skin- warm & dry Results & Data Results & Data Vital Signs (Past 12 Hours) Vital Signs Temp Pulse Pulse Resp BP BP Pulse Ox 07/11/23 16:46 36.5 C 79 18 129/70 92 07/11/23 11:09 36.6 C 66 16 168/84 H 98 07/11/23 09:55 36.5 C 77 18 122/57 L 99 07/11/23 09:42 66 16 109/51 L 98 07/11/23 09:27 36.6 C 73 16 102/57 L 99 07/11/23 08:21 36.6 C 68 16 141/72 H 100 07/11/23 07:49 36.6 C 75 16 119/57 L 99 07/11/23 07:00 95 H O2 Del Method 07/11/23 16:46 Room Air 07/11/23 11:09 Room Air 07/11/23 09:55 Room Air 07/11/23 09:42 Room Air 07/11/23 09:27 Room Air 07/11/23 08:21 Room Air 07/11/23 07:49 Room Air 07/11/23 07:00 all noted and reviewed including below (2) GI bleed GI bleed type/associated pathology: unspecified gastrointestinal hemorrhage type Qualified Code(s): K92.2 - Gastrointestinal hemorrhage, unspecified
--- NOTE | 2023-07-11 17:36 | Discharge Summary ---
Discharge Summary Date of Service July 11, 2023 Notes For Next Care Provider PLEASE REFER TO VASCULAR SURGERY FOR INCIDENTAL FINDING OF HIGH-GRADE RIGHT RENAL ARTERY STENOSIS WITH NEAR OCCLUSION SEEN ON CT ANGIOGRAM OF THE ABDOMEN PELVIS. Please refer to full report in the Ordered Studies section Medication Changes From Visit None Admission HPI Per Admitting Provider Patient is 77-year-old PMH anemia of chronic disease, iron deficiency anemia, h/o PUD s/p Billroth 2 and had post op gastroparesis & failed treatment then had gastrectomy in 2010, h/o Breast cancer s/p surgery and chemo, CKD III, CLEMENTINA, depression, hypothyroidism, spinal stenosis, RLS, GERD, myasthenia gravis, presented to ER for significant anemia found on recent labs. History obtained from patient as well as outpatient and inpatient chart review. Recent hospitalization 06/22/2023-06/23/2023 for acute blood loss anemia. During that admission patient had EGD with normal esophagus, patent Billroth II gastrojejunostomy was found characterized by healthy-appearing mucosa, normal examined jejunum. Patient was given 2 units PRBCs with improvement of Hgb from 6.8 to 8.7. It was suggested she have colonoscopy however patient wished to have outpatient colonoscopy. She states had one IV iron infusion and was to be scheduled for further outpatient IV iron. Outpatient Hgb of 6.4 on 07/05/2023. It was recommended by GI to go to ER. Patient states stools have been really dark brown but not black and tarry like 2 weeks ago. States past 2 days has noticed some SOB with exertion and lightheadedness with standing. Denies CP, SOB at rest. Still with chronic back pain and spinal stimulator placement surgery by Dr Cuba is currently on hold. Prior history acute anemia in 06/2022 and had two EGDs and colonoscopies that were unremarkable at that time as well as video capsule study 08/10/22 without small bowel bleeding seen. Denies fever/chills, diaphoresis, N/V/D/C, worsening LEARY from her baseline, syncope, new vision changes, neck pain, palpitations, cough, sore throat, rhinorrhea, abdominal pain, paresthesias, extremity weakness, extremity edema, rashes, urinary sym ptoms. Admission Exam Per Admitting Provider General: no acute distress, WDWN Head: normocephalic, atraumatic Eyes: PERRL, EOM's intact, conjunctiva pale, anicteric ENT: normal inspection external ears, nose, mucous membranes moist Neck: supple, trachea midline Lungs: clear, no respiratory distress, no wheezing/rhonchi/rales CV: RRR, no pretibial edema Abd: normal BS, soft, non-tender Ext: no cyanosis, no calf tenderness Neuro: A&O x 3, no focal deficits noted, normal affect Skin: warm, dry, pale Principal Dx & Hospital Course #1 = Principal Diagnosis (1) Symptomatic anemia: (2) GI bleed: (3) H/O Billroth II operation: (4) S/P subtotal gastrectomy: 1) Symptomatic anemia: (2) GI bleed: (3) H/O Billroth II operation: (4) S/P subtotal gastrectomy: Plan: per admitting service notes with addendum: Patient is 77-year-old PMH anemia of chronic disease, iron deficiency anemia, h/o PUD s/p Billroth 2 and had post op gastroparesis & failed treatment then had gastrectomy in 2010, h/o Breast cancer s/p surgery and chemo, CKD III, CLEMENTINA, depression, hypothyroidism, spinal stenosis, RLS, GERD, myasthenia gravis, presented to ER for significant anemia found on recent outpatient labs with Hgb of 6.4 on 07/05/2023. Reports dark color stools. Admitted with hemoglobin of 6.8 Required total of 3 units of packed RBCs Hemoglobin remained stable around 8 Placed on Protonix drip 07/09 Status post EGD and colonoscopy by Dr. Sourav Raymundo: Unrevealing Recommend transfer to [facility] for bowel enteroscopy Discussed with [facility] GI-they recommend for patient to have push enteroscopy prior to performing bowel enteroscopy CT angiogram: No source of bleeding identified 07/11 Status post push enteroscopy by Dr. De La O: Unrevealing Recommended transfer to [facility] for bowel enteroscopy Patient prefers to follow-up as an outpatient would like to go Nuclear medicine bleeding scan performed-no active bleeding noted GI okay for patient to be discharged to home Will follow-up as an outpatient for video capsule endoscopy Follow-up with PCP this week Repeat CBC and follow-up visit this week (5) CKD (chronic kidney disease), stage III: Plan: Cr: 1.2. Baseline Cr: 1.1-1.[address] abd/pelvis: There is high-grade stenosis at the origin of the right renal artery with near complete occlusion. Vascular surgical assessment is advised. Please refer to full report in the Ordered Studies section Further work up, management, and ff up as outpatient (6) Diabetes mellitus, type II: Plan: A1c: 7.4 on 06/21/2023 Continue usual medications (7) HTN (hypertension): Plan: On amlodipine 2.5 mg p.o. daily (8) Myasthenia gravis: Plan: Possible myasthenia gravis. Currently following with neuro for workup Is on prednisone daily ne (9) Hypothyroidism: Plan: Continue levothyroxine (10) RLS (restless legs syndrome): Plan: Continue ropinirole (11) HX: breast cancer: Plan: S/P surgery, chemo History bone marrow transplant PCP in 1 week GI in 1 to 2 weeks for video capsule endoscopy plan of care discussed with patient in detail and at length all questions answered she is understanding, agreeable, comfortable with the plan of care Discharge Exam General- oriented x 3, not in distress, speaks in sentences with no effort or accessory muscle use Eyes- anicteric Neck- no JVD Lungs- clear breath sounds bilaterally, no rales/wheezes Heart- normal rate, regular rhythm; no murmurs Abdomen- normal bowel sounds, nondistended, soft, nontender Extremities- no pretibial edema, no calf tenderness Neuro- alert, oriented x 3; no gross focal neurologic deficits Skin- warm & dry Updated Medication List Medication Instructions Recorded Confirmed Type fluticasone propionate 50 2 spray intranasal QAM 10/15/18 07/06/23 History mcg/actuation nasal spray,suspension levothyroxine 50 mcg tablet 0 mcg PO DAILY 10/15/18 07/06/23 History trazodone 50 mg tablet 75 mg PO HS 10/15/18 07/06/23 History ropinirole 4 mg tablet,extended 4 mg PO HS 06/17/20 07/06/23 History release 24 hr Wheelchair (Manual) #1 ea 01/01/21 06/22/23 Rx multivitamin 1 tab PO QAM 02/11/22 07/06/23 History magnesium malate, chelate 1,000 mg PO DAILY 07/09/22 07/06/23 History bwenmmhg-zgz-cgzjgl 5 mg-zeaxanth 1 cap PO DAILY 07/09/22 07/06/23 History 1 mg-bilberry 7.5 mg-herbal capsule ([employer] Formula) tramadol 50 mg tablet 50 mg PO Q6H PRN Severe Pain 07/09/22 07/06/23 History (Scale Score 7-10) pantoprazole 40 mg tablet,delayed 40 mg PO QAM #30 tabs 07/12/22 07/06/23 Rx release amoxicillin 500 mg tablet 2,000 mg PO DIRECTED PRN PRIOR 07/20/22 07/06/23 History TO PROCEDURE omega-3 fatty acids 1,000 mg 1,000 mg PO DAILY 07/20/22 07/06/23 History capsule lifitegrast 5 % eye drops in a 1 drp ophthalmic (eye) BID 06/14/23 07/06/23 History dropperette (Xiidra) prednisone 20 mg tablet 20 mg PO QAM 06/14/23 07/06/23 History prazosin 1 mg capsule 1 mg PO Q OTHER DAY 06/22/23 07/06/23 History amlodipine 2.5 mg tablet 2.5 mg PO DAILY 07/06/23 07/06/23 History empagliflozin 10 mg tablet 10 mg PO QAM 07/06/23 07/06/23 History (Jardiance) misoprostol 200 mcg tablet 200 mcg PO QID 07/06/23 07/06/23 History Hospital Stay Data Consultations 07/06/23 13:10 ED Decision to Admit Stat 07/06/23 14:21 Consult Gastroenterology Routine Procedures Performed Operation Date: 07/11/23 18:45 Actual Procedures p Small Bowel Enteroscopy EGD - Sarah De La O, Diagnostic Imagining Performed Laboratory Results WBC 5.83 K/ul (4.8-10.8) 07/11/23 06:13 RBC 2.94 M/uL (4.20-5.40) L 07/11/23 06:13 Hgb 8.7 g/dl (12.0-16.0) L 07/11/23 06:13 Hct 27.3 % (37.0-47.0) L 07/11/23 06:13 MCV 92.9 fL (80.0-100.0) 07/11/23 06:13 MCH 29.6 pg (25.0-34.0) 07/11/23 06:13 MCHC 31.9 g/dL (32.0-36.0) L 07/11/23 06:13 RDW Std Deviation 62.5 fL (36.4-46.3) H 07/11/23 06:13 RDW Coeff of Tatiana 18.4 % (11.5-14.5) H 07/11/23 06:13 Plt Count 280 K/uL (130-400) 07/11/23 06:13 MPV 9.6 fL (9.4-12.4) 07/11/23 06:13 Immature Gran % (Auto) 0.2 % 07/11/23 06:13 Neut % (Auto) 65.5 % 07/11/23 06:13 Lymph % (Auto) 25.0 % 07/11/23 06:13 Gulf % (Auto) 7.5 % 07/11/23 06:13 Eos % (Auto) 1.5 % 07/11/23 06:13 Baso % (Auto) 0.3 % 07/11/23 06:13 Neut # (Auto) 3.81 K/uL (1.40-6.50) 07/11/23 06:13 Lymph # (Auto) 1.46 K/uL (1.20-3.40) 07/11/23 06:13 Gulf # (Auto) 0.44 K/uL (0.11-0.59) 07/11/23 06:13 Eos # (Auto) 0.09 K/uL (0.00-0.50) 07/11/23 06:13 Baso # (Auto) 0.02 K/uL (0.00-0.20) 07/11/23 06:13 Immature Gran # (Auto) 0.01 K/uL (0.01-0.20) 07/11/23 06:13 Polychromasia 1+ 07/09/23 06:16 Anisocytosis Present 07/09/23 06:16 Tear Drop Cells 1+ 07/09/23 06:16 PT 10.1 Seconds (9.0-12.0) 07/06/23 11:50 INR 0.9 (0.9-1.1) 07/06/23 11:50 APTT 20 Seconds (21-31) L 07/06/23 11:50 PTT Ratio 0.7 07/06/23 11:50 Sodium 143 mmol/L (136-145) 07/11/23 06:13 Potassium 3.9 mmol/L (3.5-5.1) 07/11/23 06:13 Chloride 114 mmol/L (98-107) H 07/11/23 06:13 Carbon Dioxide 25 mmol/L (21-32) 07/11/23 06:13 Anion Gap 4 (3-11) 07/11/23 06:13 BUN 15 mg/dl (6-23) 07/11/23 06:13 Creatinine 1.05 mg/dl (0.6-1.2) 07/11/23 06:13 Est Cr Clr Drug Dosing 42.0 ml/min 07/11/23 06:13 Est GFR ( Amer) 59.3 ml/min 07/11/23 06:13 Est GFR (Non-Af Amer) 51.2 ml/min 07/11/23 06:13 BUN/Creatinine Ratio 14.3 (10-20) 07/11/23 06:13 Glucose 81 mg/dl (70-99(Fasting)) 07/11/23 06:13 POC Glucose 83 mg/dl (70-99) 07/11/23 16:31 Calcium 7.6 mg/dl (8.6-10.3) L 07/11/23 06:13 Total Bilirubin 0.3 mg/dl (0.2-1.0) 07/06/23 11:50 AST 19 U/L (13-39) 07/06/23 11:50 ALT 22 U/L (7-52) 07/06/23 11:50 Alkaline Phosphatase 48 U/L (34-104) 07/06/23 11:50 Troponin I High Sens 7.2 pg/ml (0-14) 07/06/23 11:50 Total Protein 4.9 gm/dl (6.0-8.3) L 07/06/23 11:50 Albumin 3.1 gm/dl (3.4-5.0) L 07/06/23 11:50 Globulin 1.8 gm/dl (2.5-4.0) L 07/06/23 11:50 Albumin/Globulin Ratio 1.7 (0.9-2) 07/06/23 11:50 POC Stool Occult Blood Cancelled 07/06/23 12:54 Blood Type A Positive 07/09/23 08:17 Antibody Screen NEGATIVE 07/09/23 08:17 Crossmatch See Detail 07/09/23 08:17 Impressions Abdomen/Pelvis CTA 07/09/23 10:22 CT ANGIOGRAM OF THE ABDOMEN AND PELVIS CLINICAL HISTORY: Melena. COMPARISON STUDY: Abdominal CT dated 07/09/2022 and 03/31/2010. TECHNIQUE: Following the IV administration of 112 cc of Optiray 320, CT angiogram of the abdomen and pelvis was performed from the lung bases the proximal femora. Images are reviewed in the axial, sagittal, and coronal planes. 3-D MIPS images are created and assessed. IV contrast was administered without complication. A dose lowering technique was utilized adhering to the principles of ALARA. CT DOSE: 752.93 mGy.cm FINDINGS: Lower chest: The heart is top normal in size and without pericardial effusion. The mitral annulus is densely calcified. The lung bases are clear. Liver: The contrast-enhanced liver is normal in size, contour, and attenuation. There is mild central intrahepatic biliary ductal dilatation. Gallbladder: The gallbladder is distended but otherwise normal in appearance. Spleen: Normal in size and attenuation noting heterogeneous arterial phase enhancement. Pancreas: Moderately atrophic and grossly unremarkable. Adrenal glands: Unremarkable. Kidneys: The contrast enhanced kidneys are normal in size and without hydronephrosis. The kidneys enhance symmetrically. There are at least 3 punctate nonobstructing right renal calculi. No left renal calculi are clearly seen on this contrast-enhanced examination. Abdominal aorta and iliac arteries: The abdominal aorta is normal in course and caliber noting scattered foci of atherosclerotic calcification. The abdominal aorta is widely patent. No dissection is seen. The iliac arteries are widely patent bilaterally. Major branches of the abdominal aorta: The celiac trunk, superior mesenteric, and inferior mesenteric arteries are widely patent. Hepatic arterial anatomy is conventional. The splenic artery is patent. There are single bilateral renal arteries. The left renal artery is widely patent. There is high-grade stenosis with near complete occlusion at the origin of the right renal artery. This is best seen on axial image #121. Stomach and bowel: There is a small hiatal hernia. Postsurgical changes consistent with a history of Maci-en-Y gastric bypass surgery. There is postsurgical change from sigmoid colon resection with colocolonic anastomosis. No bowel obstruction is seen. There is moderate constipation. Large duodenal diverticula are noted. The appendix is not identified and reported surgically absent. Peritoneum: There is no intraperitoneal free air or abdominal ascites. A 2.5 x 1.1 cm hyperdense nodule in the left upper quadrant on image #120 is unchanged dating back to 2009 and of doubtful significance. Lymphadenopathy: None. Pelvic viscera: Evaluation of the pelvis is degraded by streak artifact from a right hip arthroplasty. The bladder is distended but otherwise normal in appearance. The uterus and adnexa are normal as visualized. Surgical clips are seen in the right posterior pelvis. A 2.0 cm hyperdense structure in the left perineal soft tissue seen on image #341 is unchanged and likely represents a complex Bartholin's gland cyst. Skeletal structures: The skeletal structures are osteopenic. Spondylotic and extensive postsurgical changes noted in the lumbar spine. No destructive bony lesions are seen. A right hip arthroplasty is in place. Advanced arthritic change is noted in the left hip. IMPRESSION: 1. There is high-grade stenosis at the origin of the right renal artery with near complete occlusion. Vascular surgical assessment is advised. 2. Otherwise unremarkable CT angiogram of the abdominal aorta and its major branches. 3. No acute infectious or inflammatory findings are identified in the abdomen or pelvis. 4. There is postsurgical change consistent with a Maci-en-Y gastric bypass procedure. There has also been distal colonic resection. No bowel obstruction is seen. 5. Moderate constipation. 6. The gallbladder is distended but otherwise normal as imaged. Correlate with clinical and laboratory findings. 7. Additional findings as above. ACT 112: Positive. There are findings on this exam that require communication between the performing entity and the patient following Patient Test Result Information Act ([place] Act 112) guidelines. Electronically signed by: Efe Abbasi M.D. 07/09/2023 11:55 AM GI Bleed Scan Nuclear Medicine 07/11/23 11:04 NM GI bleeding HISTORY: Assess for GI bleed. melena, transfusion requiring anemia TECHNIQUE: Immediately following the intravenous administration of 26.3 mCi of technetium 99 M tagged red blood cell, dynamic imaging of the abdomen and pelvis was performed for a total 60 minutes. COMPARISON STUDY: Abdomen and pelvis CT 07/09/2023. FINDINGS: No abnormal radiotracer uptake within the abdomen or pelvis to suggest an active GI bleed. Expected radiotracer uptake seen within the arterial system and urinary system. IMPRESSION: No evidence for active GI bleed. ACT 112: Negative or not required by law. Pending Results Patient Have Any Pending Studies at Discharge: No Discharge Instructions Given to Patient (Per Discharging Provider) PLEASE CALL YOUR PRIMARY CARE PHYSICIAN OR RETURN TO THE ER IF WITH WORSENING OF SYMPTOMS, INCLUDING Black or bloody stools, abdominal pain, nausea or vomiting, Weakness, dizziness, chest pain, shortness of breath, FOLLOW UP WITH PRIMARY CARE PHYSICIAN IN 1 WEEK. THE [facility] WILL BE CALLING YOU SOON FOR THE APPOINTMENT. YOU NEED TO HAVE A VIDEO CAPSULE ENDOSCOPY PERFORMED AT THE [facility]. THE CLINIC WILL BE ARRANGING THE PROCEDURE AND WILL CALL YOU SOON FOR DETAILS. Total Time Total Time Spent Total Time Spent (In Minutes): >30 minutes
--- NOTE | 2023-07-20 09:45 | Coding Query ---
ANEMIA To promote full compliance with coding requirements relating to patient care, physician participation is requested in all cases of food safety auditor uncertainty. Please assist us with the question(s) below: Coding Question(s): Symptomatic Anemia is documented, and the H&P documented, " Has significant anemia secondary to GI blood loss with ongoing melena", and the 07/07 GI Consultation documents, "acute on chronic anemia", but there is no further mention of the cause of the anemia or the acuity. Please specify below, in your clinical opinion, regarding Symptomatic Anemia: Please specify the known or suspected type by placing an "X" within the parenthesis (x). If other, please document type. Examples are: (x ) Acute blood loss anemia ( ) Acute Postoperative blood loss anemia ( ) Acute postoperative anemia due to dilutional fluids ( ) Chronic blood loss anemia ( ) Anemia of chronic disease ( ) Aplastic anemia ( ) Anemia due to renal disease ( ) Anemia in neoplastic disease ( ) Iron deficient anemia ( ) Anemia, unspecified or other ( ) Other: (please specify) Thank you Tonia Dominguez [facility]
== END 2023-07-11 20:09 | disposition home or self-care (01) | DRG 378 ==
LOC: ED 11:23 → SUATTDRO 14:02 → EDINP 14:02 → 2N 14:22